=== PATIENT | female | born 1975 | race American Indian/Alaskan Native ===

== ENCOUNTER 2017-01-09 01:48 | Inpatient (IN) | payer OTHER ==
[2017-01-09] MEDS ORDERED: DUONEB *Not for PRN Use IH ONE ×2 (02:05→07:57)
[2017-01-09] MEDS ORDERED: MAGNESIUM SULFATE 2GM/50ML 2 GM/50 ML BAG IV ONE (02:57)
[2017-01-09 03:15] LABS: Basophils % (Auto) 0.6 % (0.0-1.8); Hemoglobin 12.6 gm/dl (10.1-14.3); Mean Corpuscular HGB Conc 32 % (30-34); Mean Corpuscular Volume 80 fl (79-97); Platelet Count 283 K/mm3 (140-440); Red Blood Count 5.04 M/mm3 (3.65-5.03); Red Cell Distribution Width 16.4 % (13.2-15.2); White Blood Count 13.1 K/mm3 (4.5-11.0)
[2017-01-09 03:28] LABS: Anion Gap 14 mmol/L; BUN/Creatinine Ratio 18.57; Blood Urea Nitrogen 13 mg/dL (7-17); Calcium 9.2 mg/dL (8.4-10.2); Carbon Dioxide 31 mmol/L (22-30); Chloride 97.6 mmol/L (98-107); Glucose 131 mg/dL (65-100); Potassium 3.7 mmol/L (3.6-5.0); Sodium 139 mmol/L (137-145)
[2017-01-09] MEDS ORDERED: ATROVENT IH ONE (03:35)
[2017-01-09] MEDS ORDERED: PROVENTIL IH ONE (03:35)
[2017-01-09] MEDS ORDERED: ZITHROMAX 500 MG in NACL 0.9% 250ML 250 ML IV ONE (03:36)
--- NOTE | 2017-01-09 03:48 | Emergency Department Report ---
ED Shortness of Breath HPI - General Chief Complaint: Dyspnea/Respdistress Stated Complaint: DIFFICULTY IN BREATHING Time Seen by Provider: 01/09/17 03:26 Source: EMS Mode of arrival: Stretcher Limitations: No Limitations - History of Present Illness Initial Comments: 41-year-old female with a past medical history of asthma, cardiomyopathy, htn, and sleep apnea presents to the hospital with complaints of wheezing shortness of breath today. Symptoms initially started 5 days ago with a sore throat described as burning and that she felt like she had a sinus congestion. Last night at 11 PM she began having worsening shortness of breath with wheezing. Patient uses albuterol nebulizer treatments as well as inhaler repeatedly without improvement. Occasional cough that is productive of sputum reported. Patient complaining of moderate chest pain is worse with coughing. - Related Data Home Medications Medication Instructions Recorded Confirmed Last Taken Metformin HCl [Glucophage] 1,000 mg PO BID 11/21/13 06/09/15 11/20/13 Previous Rx's Medication Instructions Recorded Last Taken Type Albuterol Sulfate [Proventil HFA] 1 - 2 puff IH Q4H PRN #1 hfa.aer.ad 09/24/14 Unknown Rx Amoxicillin [Trimox CAP] 500 mg PO BID #14 capsule 06/09/15 Unknown Rx HYDROcodone/APAP 5-325 [[place] 1 - 2 each PO Q6HR PRN #14 tablet 06/09/15 Unknown Rx 5/325] Phenylephrine/Dm/Acetaminop/GG 20 ml PO Q4HR #180 liquid 10/09/15 Unknown Rx [Mucinex Typt-Bxs-Tlctplwyzd Lq] Chlorthalidone [Thalitone] 25 mg PO QDAY #90 tablet 03/20/16 Unknown Rx Naproxen [Naprosyn TAB] 500 mg PO BID #20 tablet 03/20/16 Unknown Rx Prednisone [predniSONE 10 mg 10 mg PO .TAPER #1 tab.ds.pk 03/20/16 Unknown Rx (6-Day Pack, 21 Tabs)] amLODIPine [Norvasc] 5 mg PO DAILY #90 tab 03/20/16 Unknown Rx ALBUTEROL Inhaler [ProAir HFA 2 puff IH QID PRN #1 inhalation 05/20/16 Unknown Rx Inhaler] predniSONE [Deltasone] 20 mg PO QDAY #5 tab 05/20/16 Unknown Rx Allergies Allergy/AdvReac Type Severity Reaction Status Date / Time iodine Allergy Rash Verified 06/09/15 01:19 shellfish derived Allergy Rash Verified 06/09/15 01:19 ED Review of Systems ROS: Stated complaint: DIFFICULTY IN BREATHING Other details as noted in HPI Comment: All other systems reviewed and negative Other: Constitutional: No fevers chills Eyes: No eye pain visual changes ENT: No ear pain or throat pain Neck: Denies pain Respiratory: As per HPI Cardiovascular: Denies palpitations, syncope GI: Denies abdominal pain, nausea, vomiting, diarrhea : Denies dysuria Musculoskeletal: Denies back pain Skin: Denies rash, lesions, erythema Neurologic: Denies headache, numbness, weakness Psychiatric: Denies suicidal ideation, hallucinations ED Past Medical Hx - Past Medical History Hx Hypertension: Yes Hx Congestive Heart Failure: Yes ( cardiomyopathy) Hx Diabetes: No Hx Arthritis: Yes Hx Asthma: Yes Hx COPD: Yes Additional medical history: sleep apnea - Surgical History Additional Surgical History: x 3, orthopedic (arch replacement) - Social History Smoking Status: Current Some Day Smoker Substance Use Type: Alcohol - Medications Home Medications: Home Medications Medication Instructions Recorded Confirmed Last Taken Type Metformin HCl [Glucophage] 1,000 mg PO BID 11/21/13 06/09/15 11/20/13 History Albuterol Sulfate [Proventil HFA] 1 - 2 puff IH Q4H PRN #1 hfa.aer.ad 09/24/14 06/09/15 Unknown Rx Amoxicillin [Trimox CAP] 500 mg PO BID #14 capsule 06/09/15 Unknown Rx HYDROcodone/APAP 5-325 [[place] 1 - 2 each PO Q6HR PRN #14 tablet 06/09/15 Unknown Rx 5/325] Phenylephrine/Dm/Acetaminop/GG 20 ml PO Q4HR #180 liquid 10/09/15 Unknown Rx [Mucinex Cwwj-Bqk-Gyxaaxzwef Lq] Chlorthalidone [Thalitone] 25 mg PO QDAY #90 tablet 03/20/16 Unknown Rx Naproxen [Naprosyn TAB] 500 mg PO BID #20 tablet 03/20/16 Unknown Rx Prednisone [predniSONE 10 mg 10 mg PO .TAPER #1 tab.ds.pk 03/20/16 Unknown Rx (6-Day Pack, 21 Tabs)] amLODIPine [Norvasc] 5 mg PO DAILY #90 tab 03/20/16 Unknown Rx ALBUTEROL Inhaler [ProAir HFA 2 puff IH QID PRN #1 inhalation 05/20/16 Unknown Rx Inhaler] predniSONE [Deltasone] 20 mg PO QDAY #5 tab 05/20/16 Unknown Rx ED Physical Exam - General Limitations: No Limitations - Other Other exam information: General: No limitations, patient is alert in no acute distress Head exam: Atraumatic, normocephalic Eyes exam: Normal appearance ENT: Moist mucous membrane, normal oropharynx Neck exam: Normal inspection, full range of motion, no meningismus nontender Respiratory exam: Bilateral expiratory wheezing, mild tachypnea, no accessory muscle use Cardiovascular: mild tach, regular rhythm Abdomen: Soft, nondistended, and nontender, with normal bowel sounds, no rebound, or guarding Extremity: Full range of motion normal inspection no deformity, no calf tenderness or edema Back: Normal Inspection, full range of motion, no tenderness Neurologic: Alert, oriented x3, cranial nerves intact, no motor or sensory deficit Psychiatric: normal affect, normal mood Skin: Warm, dry, intact ED Course Vital Signs 01/09/17 01/09/17 01/09/17 02:01 02:23 02:30 Temperature 98.4 F Pulse Rate 115 H Pulse Rate [ 116 H 83 Throughout] Respiratory 30 H Rate Respiratory 20 20 Rate [ Throughout] Blood Pressure 142/89 [Left] O2 Sat by Pulse 99 Oximetry ED Medical Decision Making - Lab Data Result diagrams: 01/09/17 Unknown 01/09/17 02:55 Lab Results 01/09/17 01/09/17 Range/Units 02:55 Unknown WBC 13.1 H (4.5-11.0) K/mm3 RBC 5.04 H (3.65-5.03) M/mm3 Hgb 12.6 (10.1-14.3) gm/dl Hct 40.0 (30.3-42.9) % MCV 80 (79-97) fl MCH 25 L (28-32) pg MCHC 32 (30-34) % RDW 16.4 H (13.2-15.2) % Plt Count 283 (140-440) K/mm3 Lymph % (Auto) 29.2 (13.4-35.0) % [place] % (Auto) 5.2 (0.0-7.3) % Eos % (Auto) 4.0 (0.0-4.3) % Baso % (Auto) 0.6 (0.0-1.8) % Lymph # 3.8 (1.2-5.4) K/mm3 [place] # 0.7 (0.0-0.8) K/mm3 Eos # 0.5 H (0.0-0.4) K/mm3 Baso # 0.1 (0.0-0.1) K/mm3 Seg Neutrophils % 61.0 (40.0-70.0) % Seg Neutrophils # 8.0 H (1.8-7.7) K/mm3 Sodium 139 (137-145) mmol/L Potassium 3.7 (3.6-5.0) mmol/L Chloride 97.6 L (98-107) mmol/L Carbon Dioxide 31 H (22-30) mmol/L Anion Gap 14 mmol/L BUN 13 (7-17) mg/dL Creatinine 0.7 (0.7-1.2) mg/dL Estimated GFR > 60 ml/min BUN/Creatinine Ratio 18.57 % Glucose 131 H (65-100) mg/dL Calcium 9.2 (8.4-10.2) mg/dL Critical Care Time: No Critical care attestation.: If time is entered above; I have spent that time in minutes in the direct care of this critically ill patient, excluding procedure time. ED Disposition Clinical Impression: Sleep apnea, Morbid obesity, Acute asthmatic bronchitis Disposition: OP ADMIT IP TO THIS HOSP Is pt being admited?: Yes Condition: Stable Time of Disposition: 03:48 (Dr Davenport/hosp)
[2017-01-09 03:52] LABS: Mean Corpuscular Hemoglobin 25 pg (28-32)
[2017-01-09] MEDS ORDERED: TESSALON PERLES PO ONE (04:20)
[2017-01-09 04:55] LABS: ISTAT Base Excess 2; ISTAT DEVICE 0; ISTAT HCO3 25.7; ISTAT PCO2 35.1 (35-45); ISTAT PH 7.474 (7.35-7.45); ISTAT PO2 66 (80-105); ISTAT SO2 94; ISTAT TCO2 27
[2017-01-09] MEDS ORDERED: ZOFRAN IV PRN (05:57)
[2017-01-09] MEDS ORDERED: DULCOLAX PR PRN (05:57)
[2017-01-09] MEDS ORDERED: MILK OF MAGNESIA PO PRN (05:57)
--- NOTE | 2017-01-09 06:35 | History and Physical Report ---
History of Present Illness Date of examination: 01/09/17 History of present illness: 5-year-old woman with a history of hypertension,CHF comes emergency room with complaints of shortness of breath at started this morning, wheezing and cough that is non- productive. Patient had a sinus infection, was given antibiotic but was unable to get the prescription filled Patient denies chest pain, palpitation, s abdominal pain, hematochezia, dysuria , frequency, focal weakness, dysarthria, fever chills, polydipsia polyuria, hot or cold intolerance, easy bruisability, or rash or bleeding from mucosal membrane, rhinorrhea, epistaxis, earache, tinnitus, blurry vision, eye discharge , anxiety, depression. Other review of systems negative PAST SURGICAL HISTORY: 3, foot SOCIAL HISTORY: Smoke Cigarettes, no alcohol or drugs FAMILY HISTORY: Hypertension Medications and Allergies Allergies Allergy/AdvReac Type Severity Reaction Status Date / Time iodine Allergy Rash Verified 06/09/15 01:19 shellfish derived Allergy Rash Verified 06/09/15 01:19 Home Medications Medication Instructions Recorded Confirmed Last Taken Type Albuterol Sulfate [Proventil HFA] 1 - 2 puff IH Q4H PRN #1 hfa.aer.ad 09/24/14 01/09/17 01/08/17 Rx Naproxen [Naprosyn TAB] 500 mg PO BID #20 tablet 03/20/16 01/09/17 Unknown Rx amLODIPine [Norvasc] 5 mg PO DAILY #90 tab 03/20/16 01/09/17 Unknown Rx ALBUTEROL Inhaler [ProAir HFA 2 puff IH QID PRN #1 inhalation 05/20/16 01/09/17 01/08/17 Rx Inhaler] Cetirizine HCl [ZyrTEC] 10 mg PO PRN 01/09/17 01/09/17 Unknown History Furosemide [Lasix] 20 mg PO QDAY 01/09/17 01/09/17 Unknown History Active Meds: Active Medications Acetaminophen (Tylenol) 650 mg PO Q4H PRN PRN Reason: Pain MILD(1-3)/Fever >100.5/CESAR Albuterol/Ipratropium (Duoneb 0.5 Mg-3 Mg/3 Ml Soln) 1 ampul IH Q6HRT [facility] Bisacodyl (Dulcolax) 10 mg [place] QDAY PRN PRN Reason: Constipation unrelieved by MOM Enoxaparin Sodium (Lovenox) 40 mg SUB-Q QDAY [facility] Magnesium Hydroxide (Milk Of Magnesia) 30 ml PO Q4H PRN PRN Reason: Constipation Methylprednisolone Sodium Succinate (Solu-Medrol) 125 mg IV Q6H [facility] Ondansetron HCl (Zofran) 4 mg IV Q8H PRN PRN Reason: N/V unrelieved by Reglan Exam - Physical Exam Narrative exam: Gen. appearance: Patient lying in bed, no apparent distress. not able to speak in complete sentence HEENT: Normocephalic, atraumatic, pupils equally round and reactive to light, extraocular movement intact, and no sclericterus,. No JVD or thyromegaly or nodule,neck supple, no carotid bruit ,mucous membranes moist, no exudate or erythema Heart: S1, S2, regular rate and rhythm Lungs: Wheezing, decreased air entry bilaterally, breathing comfortable Abdomen: Positive bowel sounds, nontender, nondistended, no organomegaly Extremity: No edema, cyanosis, clubbing Skin: No rash, nodules, warm, dry Neuro: Oriented 3, cranial nerves II-12 intact, speech is fluent, motor and sensory intact - Constitutional Vitals: Temp Pulse Resp BP Pulse Ox 98.4 F 114 H 23 142/89 95 01/09/17 02:01 01/09/17 05:51 01/09/17 05:51 01/09/17 02:01 01/09/17 05:51 Results - Labs CBC & Chem 7: 01/09/17 Unknown 01/09/17 02:55 Labs: Abnormal lab results 01/09/17 01/09/17 01/09/17 Range/Units 02:55 04:48 Unknown WBC 13.1 H (4.5-11.0) K/mm3 RBC 5.04 H (3.65-5.03) M/mm3 MCH 25 L (28-32) pg RDW 16.4 H (13.2-15.2) % Eos # 0.5 H (0.0-0.4) K/mm3 Seg Neutrophils # 8.0 H (1.8-7.7) K/mm3 POC ABG pH 7.474 H (7.35-7.45) POC ABG pO2 66 L (80-105) Chloride 97.6 L (98-107) mmol/L Carbon Dioxide 31 H (22-30) mmol/L Glucose 131 H (65-100) mg/dL - Imaging and Cardiology Chest x-ray: image reviewed Assessment and Plan Acute respiratory failure Asthma exacerbation Hypertension CHF, stable Obstructive sleep apnea. Admit to medicine Start high-dose steroids, nebulizer treatments, etc. mycin Obtain ABG and start BiPAP Continue appropiate Outpatient medications, start dvt prophylaxis
[2017-01-09] MEDS ORDERED: DUONEB *Not for PRN Use IH SCH (08:00)
[2017-01-09] MEDS: DUONEB *Not for PRN Use IH SCH ×4 (08:05→21:59)
--- NOTE | 2017-01-09 10:48 | Progress Note ---
Assessment and Plan Assessment and plan: Admitted today by Dr. Liyah Davenport, this is a reevaluation Patient is a 41-year-old morbid obese woman BMI 51.7 with a history of asthma, cardiomyopathy, obstructive sleep apnea, arthritis and tobacco dependency who presents to emergency department at [facility] with shortness of breath and wheezing after failing outpatient therapy. Chest x -rays pending. Patient primary care provider Dr. Florentino Crump and her podiatric foot and ankle specialist Dr. Arreola. She is currently on BiPAP 12/6 40%. -Acute hypoxic respiratory failure: Treatment oxygen -Acute exacerbation asthma versus COPD exacerbation: Consulted her podiatric foot and ankle specialist , treat with IV steroids, antibiotics, nebulizer treatment, antitussive -Sepsis bronchitis, present on admission as evident by white blood cell count 13.1 with heart rate 100: Blood cultures and treat with antibiotics -Morbid obesity BMI 51.7: Lifestyle modifications -Tobacco dependency, counseled to stop, she says she hasn't smoked in 3 days, encouragement given History Interval history: Patient seen and examined. Follow up on shortness breath and nonproductive cough which still present causing chest discomfort. No severe headaches. Imaging, old records, testing, labs, nursing notes reviewed. Hospitalist Physical - Physical exam Narrative exam: GEN: Morbidly obese BMI 51.7 ill-appearing AWAKE, ALERT, ORIENTATED x 3 HEENT: NCAT, PERRL, EOMI, OP CLEAR NECK: SUPPLE, NO THYROMEGALY, NO JVD, NO LAD CVS: RRR, NORMAL S1S2 LUNGS/CHEST: Bilateral expiratory wheezing NORMAL CHEST EXPANSION B, diminished AIR ENTRY B ABD: SOFT, NTND, GBS, NO REBOUND OR GUARDING EXT/SKIN: NO SIGNIFICANT EDEMA OR RASH MSK: FROM X 4 EXTREMITIES NEURO: CN 2-12 GROSSLY INTACT, NO FOCAL DEFICITS PSY: CALM - Constitutional Vitals: Temp Pulse Resp BP Pulse Ox 98.5 F 119 H 22 138/76 100 01/09/17 07:20 01/09/17 08:23 01/09/17 08:23 01/09/17 07:45 01/09/17 07:45 Results - Labs CBC & Chem 7: 01/09/17 Unknown 01/09/17 02:55 Labs: Laboratory Last Values WBC 13.1 K/mm3 (4.5-11.0) H 01/09/17 Unknown RBC 5.04 M/mm3 (3.65-5.03) H 01/09/17 Unknown Hgb 12.6 gm/dl (10.1-14.3) 01/09/17 Unknown Hct 40.0 % (30.3-42.9) 01/09/17 Unknown MCV 80 fl (79-97) 01/09/17 Unknown MCH 25 pg (28-32) L 01/09/17 Unknown MCHC 32 % (30-34) 01/09/17 Unknown RDW 16.4 % (13.2-15.2) H 01/09/17 Unknown Plt Count 283 K/mm3 (140-440) 01/09/17 Unknown Lymph % (Auto) 29.2 % (13.4-35.0) 01/09/17 Unknown [place] % (Auto) 5.2 % (0.0-7.3) 01/09/17 Unknown Eos % (Auto) 4.0 % (0.0-4.3) 01/09/17 Unknown Baso % (Auto) 0.6 % (0.0-1.8) 01/09/17 Unknown Lymph # 3.8 K/mm3 (1.2-5.4) 01/09/17 Unknown [place] # 0.7 K/mm3 (0.0-0.8) 01/09/17 Unknown Eos # 0.5 K/mm3 (0.0-0.4) H 01/09/17 Unknown Baso # 0.1 K/mm3 (0.0-0.1) 01/09/17 Unknown Seg Neutrophils % 61.0 % (40.0-70.0) 01/09/17 Unknown Seg Neutrophils # 8.0 K/mm3 (1.8-7.7) H 01/09/17 Unknown POC ABG pH 7.474 (7.35-7.45) H 01/09/17 04:48 POC ABG pCO2 35.1 (35-45) 01/09/17 04:48 POC ABG pO2 66 (80-105) L 01/09/17 04:48 POC ABG HCO3 25.7 01/09/17 04:48 POC ABG Total CO2 27 01/09/17 04:48 POC ABG O2 Sat 94 01/09/17 04:48 POC ABG Base Excess 2 01/09/17 04:48 FiO2 21 % 01/09/17 04:48 Sodium 139 mmol/L (137-145) 01/09/17 02:55 Potassium 3.7 mmol/L (3.6-5.0) 01/09/17 02:55 Chloride 97.6 mmol/L (98-107) L 01/09/17 02:55 Carbon Dioxide 31 mmol/L (22-30) H 01/09/17 02:55 Anion Gap 14 mmol/L 01/09/17 02:55 BUN 13 mg/dL (7-17) 01/09/17 02:55 Creatinine 0.7 mg/dL (0.7-1.2) 01/09/17 02:55 Estimated GFR > 60 ml/min 01/09/17 02:55 BUN/Creatinine Ratio 18.57 % 01/09/17 02:55 Glucose 131 mg/dL (65-100) H 01/09/17 02:55 Calcium 9.2 mg/dL (8.4-10.2) 01/09/17 02:55
--- NOTE | 2017-01-09 11:22 | XRay Report ---
AP CHEST :01/09/17 01:48:00 CLINICAL: Difficulty breathing. COMPARISON:05/20/16 FINDINGS: Normal heart and pulmonary vasculature. The lungs are normally expanded and clear. The bones and soft tissues are normal. IMPRESSION: Normal chest.
[2017-01-09] MEDS: ROBITUSSIN AC PO PRN ×2 (11:31→21:20)
[2017-01-09] MEDS: ROCEPHIN/NS 1 GM/50 ML 1 GM/50 ML BAG IV SCH (11:31)
[2017-01-09] MEDS: LOVENOX SUB-Q SCH (11:32)
[2017-01-09] MEDS: MUCINEX ER PO SCH ×2 (12:18→21:53)
[2017-01-09] MEDS: TYLENOL PO PRN ×2 (12:23→21:23)
[2017-01-09] MEDS ORDERED: TESSALON PERLES PO SCH (14:00)
--- NOTE | 2017-01-09 16:51 | Consultation ---
History of Present Illness Consult date: 01/09/17 Reason for consult: cough, asthma, obstructive sleep apnea History of present illness: This is 41 year old female morbidly obese has history of asthma , Sleep apnea,hypertension,CHF came to the emergency room with shortness of breath,chest tightness. Patient also complaining nasal congestion and sore throat. Denies fever.Patient smokes 1 pack x 1 week for 20 years . Counselled to stop smoking. Denies alcohol or drug abuse. 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 Allergic to Iodine and Shell fish.Patients chest xray reported normal. Patients ABGs PH 7. 47 PCO2 35 PO2 66 HCO3 26 O2 saturation 94% on room air.Patient is not using her CPAP at home for more than year. p Past History Past Medical History: heart failure, hypertension, other (Asthma, Sleep apnea.) Social history: , smoking Medications and Allergies Allergies Allergy/AdvReac Type Severity Reaction Status Date / Time iodine Allergy Rash Verified 06/09/15 01:19 shellfish derived Allergy Rash Verified 06/09/15 01:19 Home Medications Medication Instructions Recorded Confirmed Last Taken Type Albuterol Sulfate [Proventil HFA] 1 - 2 puff IH Q4H PRN #1 hfa.aer.ad 09/24/14 01/09/17 01/08/17 Rx Naproxen [Naprosyn TAB] 500 mg PO BID #20 tablet 03/20/16 01/09/17 Unknown Rx amLODIPine [Norvasc] 5 mg PO DAILY #90 tab 03/20/16 01/09/17 Unknown Rx ALBUTEROL Inhaler [ProAir HFA 2 puff IH QID PRN #1 inhalation 05/20/16 01/09/17 01/08/17 Rx Inhaler] Cetirizine HCl [ZyrTEC] 10 mg PO PRN 01/09/17 01/09/17 Unknown History Furosemide [Lasix] 20 mg PO QDAY 01/09/17 01/09/17 Unknown History Active Meds: Active Medications Acetaminophen (Tylenol) 650 mg PO Q4H PRN PRN Reason: Pain MILD(1-3)/Fever >100.5/CESAR Last Admin: 01/09/17 12:23 Dose: 650 mg Albuterol/Ipratropium (Duoneb 0.5 Mg-3 Mg/3 Ml Soln) 1 ampul IH Q6HRT [facility] Last Admin: 01/09/17 12:40 Dose: 1 ampul Bisacodyl (Dulcolax) 10 mg [place] QDAY PRN PRN Reason: Constipation unrelieved by MOM Enoxaparin Sodium (Lovenox) 40 mg SUB-Q QDAY [facility] Last Admin: 01/09/17 11:32 Dose: 40 mg Guaifenesin (Mucinex Er) 600 mg PO BID [facility] Last Admin: 01/09/17 12:18 Dose: Not Given Azithromycin 500 mg/ Sodium (Chloride) 250 mls @ 250 mls/hr IV Q24HR [facility] PRN Reason: Protocol Ceftriaxone Sodium (Rocephin/Ns 1 Gm/50 Ml) 1 gm in 50 mls @ 100 mls/hr IV Q24HR [facility] PRN Reason: Protocol Last Admin: 01/09/17 11:31 Dose: 100 mls/hr Magnesium Hydroxide (Milk Of Magnesia) 30 ml PO Q4H PRN PRN Reason: Constipation Methylprednisolone Sodium Succinate (Solu-Medrol) 125 mg IV Q6H [facility] Pseudoephedrine/Acetam/Chlorphenir (Robitussin Ac) 10 ml PO Q4H PRN PRN Reason: Cough Last Admin: 01/09/17 11:31 Dose: 10 ml Review of Systems All systems: negative Constitutional: fatigue, chronic headaches, daytime sleepiness Ears, nose, mouth and throat: nasal congestion, headache Cardiovascular: shortness of breath Respiratory: cough, shortness of breath, wheezing, sleep apnea Physical Examination Vital signs: Vital Signs Resp Pulse Ox 19 98 01/09/17 01:48 01/09/17 01:48 General appearance: no acute distress, alert, appears uncomfortable Eyes: non-icteric ENT: oropharynx moist Neck: no JVD, JVD Ascultation: Bilateral: diminished breath sounds, rhonchi Cardiovascular: regular rate and rhythm Gastrointestinal: normoactive bowel sounds, soft, non-tender Integumentary: normal Extremities: no cyanosis, no edema, pink and warm Musculoskeletal: no deformities Gait: poor gait normal mental status, non-focal exam, pupils equal and round, CN II-XII normal anxious Results - Laboratory Findings CBC and BMP: 01/09/17 Unknown 01/09/17 02:55 ABG POC ABG pH 7.474 (7.35-7.45) H 01/09/17 04:48 POC ABG pCO2 35.1 (35-45) 01/09/17 04:48 POC ABG pO2 66 (80-105) L 01/09/17 04:48 POC ABG HCO3 25.7 01/09/17 04:48 POC ABG Total CO2 27 01/09/17 04:48 POC ABG O2 Sat 94 01/09/17 04:48 Abnormal lab findings: Abnormal Labs 01/09/17 Unknown WBC 13.1 H RBC 5.04 H MCH 25 L RDW 16.4 H Eos # 0.5 H Seg Neutrophils # 8.0 H - Diagnostic Findings Chest x-ray: report reviewed (Normal chest.), image reviewed Assessment and Plan This is 41 year old female morbidly obese has history of asthma , Sleep apnea,hypertension,CHF came to the emergency room with shortness of breath,chest tightness. Patient also complaining nasal congestion and sore throat. Denies fever.Patient smokes 1 pack x 1 week for 20 years . Counselled to stop smoking. Denies alcohol or drug abuse. 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 Allergic to Iodine and Shell fish.Patients chest xray reported normal. Patients ABGs PH 7. 47 PCO2 35 PO2 66 HCO3 26 O2 saturation 94% on room air.Patient is not using her CPAP at home for more than year. - Patient Problems (1) Acute bronchitis Current Visit: Yes Status: Acute Qualifiers: Bronchitis organism: B Plan to address problem: Patient is on Zithromax and ceftrioxone. (2) Asthma exacerbation Current Visit: Yes Status: Acute Qualifiers: Asthma severity: A Plan to address problem: .O2 2 litres via nasal canula. BIPAP 16/6, rate 20, FiO2 28%. Albuterol/atrovent aerosol treatments q 6 hours. Continu Continue ceftrioxone and Zithramax. Continue S/C Lovenox. Recommend protonix. (3) Morbid obesity Current Visit: Yes Status: Chronic Qualifiers: Obesity type: O Plan to address problem: Nutritional consultation for weight reduction diet. Recommend to loose weight, (4) Sleep apnea Current Visit: Yes Status: Chronic Qualifiers: Sleep apnea type: S Plan to address problem: Patient is on BIPAP 16/, rate 20, FIO2 28%.
[2017-01-10] MEDS: DUONEB *Not for PRN Use IH SCH ×4 (02:33→20:45)
[2017-01-10 08:33] LABS: Hematocrit 37.6 % (30.3-42.9); Hemoglobin 11.7 gm/dl (10.1-14.3); Mean Corpuscular HGB Conc 31 % (30-34); Mean Corpuscular Volume 81 fl (79-97); Platelet Count 300 K/mm3 (140-440); Red Blood Count 4.65 M/mm3 (3.65-5.03); Red Cell Distribution Width 17.2 % (13.2-15.2)
[2017-01-10 08:36] LABS: BUN/Creatinine Ratio 16.66; Blood Urea Nitrogen 10 mg/dL (7-17); Calcium 9.3 mg/dL (8.4-10.2); Carbon Dioxide 23 mmol/L (22-30); Chloride 101.7 mmol/L (98-107); Glucose 225 mg/dL (65-100); Potassium 4.3 mmol/L (3.6-5.0); Sodium 139 mmol/L (137-145)
[2017-01-10 08:37] LABS: Anion Gap 19 mmol/L
[2017-01-10 08:51] LABS: Mean Corpuscular Hemoglobin 25 pg (28-32); White Blood Count 22.3 K/mm3 (4.5-11.0)
[2017-01-10] MEDS: ROCEPHIN/NS 1 GM/50 ML 1 GM/50 ML BAG IV SCH (09:48)
[2017-01-10] MEDS: LOVENOX SUB-Q SCH (09:49)
[2017-01-10] MEDS: MUCINEX ER PO SCH ×2 (09:50→22:50)
[2017-01-10] MEDS: ZITHROMAX 500 MG in NACL 0.9% 250ML 250 ML IV SCH (09:51)
[2017-01-10 10:24] LABS: Blastocytes % (Manual) 0 %; Eosinophils % (Manual) 0 % (0.0-4.3); Total Cells Counted Percent 0
[2017-01-10 10:25] LABS: Anisocytosis 1+; Diff Status Complete; Hypochromasia 1+; Large Platelets Rare; Platelet Estimate Cons
[2017-01-10] MEDS: ROBITUSSIN AC PO PRN (11:44)
[2017-01-10] MEDS ORDERED: DULCOLAX PO PRN (11:56)
[2017-01-10] MEDS: NORCO 5/325 PO PRN ×3 (12:14→23:33)
--- NOTE | 2017-01-10 12:41 | Progress Note ---
Assessment and Plan Assessment and plan: Patient is a 41-year-old morbid obese woman BMI 51.7 with a history of asthma, cardiomyopathy, obstructive sleep apnea, arthritis and tobacco dependency [facility] and wheezing after failing outpatient therapy. Chest x -rays pending. Patient primary care provider Dr. Florentino Crump and her supervisor shaving and splitting Dr. Arreola. She was on BiPAP 06/09 40%. -Acute hypoxic respiratory failure: Treat w/ oxygen -Acute exacerbation asthma versus COPD exacerbation: Consulted her supervisor shaving and splitting , treat with IV steroids, antibiotics, nebulizer treatment, antitussive adjusted because Tessalon works better per pt -Sepsis bronchitis, present on admission as evident by white blood cell count 13.1 with heart rate 100: Blood cultures and treat with antibiotics -Morbid obesity BMI 51.7: Lifestyle modifications -Tobacco dependency, counseled to stop, she says she hasn't smoked in 3 days, encouragement given -Insomina: ambien prn -Constipation: dulcolax prn -Sore throat, no pus seen on exam: check rapid strep -Chronic pain syndrome: norco History Interval history: Patient seen and examined. Follow up on shortness breath and nonproductive cough which still present causing chest discomfort. No severe headaches. Imaging, old records, testing, labs, nursing notes reviewed. She c/o sore throat , constipation, chronic arthritic pains in back and insomnia. Bipap still on when I entered the room with respiratory therapy, d/c bipap and will monitor Hospitalist Physical - Physical exam Narrative exam: GEN: Morbidly obese BMI 51.7 ill-appearing AWAKE, ALERT, ORIENTATED x 3 HEENT: NCAT, PERRL, EOMI, OP CLEAR NECK: SUPPLE, NO THYROMEGALY, NO JVD, NO LAD CVS: Reg tachy NORMAL S1S2 LUNGS/CHEST: Bilateral expiratory wheezing NORMAL CHEST EXPANSION B, diminished AIR ENTRY B ABD: SOFT, NTND, GBS, NO REBOUND OR GUARDING EXT/SKIN: NO SIGNIFICANT EDEMA OR RASH MSK: FROM X 4 EXTREMITIES NEURO: CN 2-12 GROSSLY INTACT, NO FOCAL DEFICITS PSY: CALM - Constitutional Vitals: Temp Pulse Resp BP Pulse Ox 97.4 F L 108 H 20 147/79 97 01/10/17 12:32 01/10/17 12:32 01/10/17 12:32 01/10/17 12:32 01/10/17 12:32 Results - Labs CBC & Chem 7: 01/10/17 07:56 01/10/17 07:56 Labs: Laboratory Last Values WBC 22.3 K/mm3 (4.5-11.0) H 01/10/17 07:56 RBC 4.65 M/mm3 (3.65-5.03) 01/10/17 07:56 Hgb 11.7 gm/dl (10.1-14.3) 01/10/17 07:56 Hct 37.6 % (30.3-42.9) 01/10/17 07:56 MCV 81 fl (79-97) 01/10/17 07:56 MCH 25 pg (28-32) L 01/10/17 07:56 MCHC 31 % (30-34) 01/10/17 07:56 RDW 17.2 % (13.2-15.2) H 01/10/17 07:56 Plt Count 300 K/mm3 (140-440) 01/10/17 07:56 Lymph % (Auto) 29.2 % (13.4-35.0) 01/09/17 Unknown [place] % (Auto) 5.2 % (0.0-7.3) 01/09/17 Unknown Eos % (Auto) 4.0 % (0.0-4.3) 01/09/17 Unknown Baso % (Auto) 0.6 % (0.0-1.8) 01/09/17 Unknown Lymph # 3.8 K/mm3 (1.2-5.4) 01/09/17 Unknown [place] # 0.7 K/mm3 (0.0-0.8) 01/09/17 Unknown Eos # 0.5 K/mm3 (0.0-0.4) H 01/09/17 Unknown Baso # 0.1 K/mm3 (0.0-0.1) 01/09/17 Unknown Add Manual Diff Complete 01/10/17 07:56 Total Counted 100 01/10/17 07:56 Seg Neutrophils % Veterinary Technician Assistant 01/10/17 07:56 Band Neutrophils % 0 % 01/10/17 07:56 Lymphocytes % (Manual) 8.0 % (13.4-35.0) L 01/10/17 07:56 Reactive Lymphs % (Man) 0 % 01/10/17 07:56 Monocytes % (Manual) 0 % (0.0-7.3) 01/10/17 07:56 Eosinophils % (Manual) 0 % (0.0-4.3) 01/10/17 07:56 Metamyelocytes % 0 % 01/10/17 07:56 Myelocytes % 0 % 01/10/17 07:56 Promyelocytes % 0 % 01/10/17 07:56 Blast Cells % 0 % 01/10/17 07:56 Nucleated RBC % Not Reportable 01/10/17 07:56 Seg Neutrophils # 8.0 K/mm3 (1.8-7.7) H 01/09/17 Unknown Seg Neutrophils # Man 20.5 K/mm3 (1.8-7.7) H 01/10/17 07:56 Band Neutrophils # 0.0 K/mm3 01/10/17 07:56 Lymphocytes # (Manual) 1.8 K/mm3 (1.2-5.4) 01/10/17 07:56 Abs React Lymphs (Man) 0.0 K/mm3 01/10/17 07:56 Monocytes # (Manual) 0.0 K/mm3 (0.0-0.8) 01/10/17 07:56 Eosinophils # (Manual) 0.0 K/mm3 (0.0-0.4) 01/10/17 07:56 Basophils # (Manual) 0.0 K/mm3 (0.0-0.1) 01/10/17 07:56 Metamyelocytes # 0.0 K/mm3 01/10/17 07:56 Myelocytes # 0.0 K/mm3 01/10/17 07:56 Promyelocytes # 0.0 K/mm3 01/10/17 07:56 Blast Cells # 0.0 K/mm3 01/10/17 07:56 WBC Morphology Not Reportable 01/10/17 07:56 Hypersegmented Neuts Not Reportable 01/10/17 07:56 Hyposegmented Neuts Not Reportable 01/10/17 07:56 Hypogranular Neuts Not Reportable 01/10/17 07:56 Smudge Cells Not Reportable 01/10/17 07:56 Toxic Granulation Not Reportable 01/10/17 07:56 Toxic Vacuolation Not Reportable 01/10/17 07:56 Dohle Bodies Not Reportable 01/10/17 07:56 Pelger-Huet Anomaly Not Reportable 01/10/17 07:56 Lili Rods Not Reportable 01/10/17 07:56 Platelet Estimate Cons 01/10/17 07:56 Clumped Platelets Not Reportable 01/10/17 07:56 Plt Clumps, EDTA Not Reportable 01/10/17 07:56 Large Platelets Rare 01/10/17 07:56 Giant Platelets Not Reportable 01/10/17 07:56 Platelet Satelliting Not Reportable 01/10/17 07:56 Plt Morphology Comment Not Reportable 01/10/17 07:56 RBC Morphology Not Reportable 01/10/17 07:56 Dimorphic RBCs Not Reportable 01/10/17 07:56 Polychromasia Not Reportable 01/10/17 07:56 Hypochromasia 1+ 01/10/17 07:56 Poikilocytosis Not Reportable 01/10/17 07:56 Anisocytosis 1+ 01/10/17 07:56 Microcytosis Not Reportable 01/10/17 07:56 Macrocytosis Not Reportable 01/10/17 07:56 Spherocytes Not Reportable 01/10/17 07:56 Pappenheimer Bodies Not Reportable 01/10/17 07:56 Sickle Cells Not Reportable 01/10/17 07:56 Target Cells Not Reportable 01/10/17 07:56 Tear Drop Cells Not Reportable 01/10/17 07:56 Ovalocytes Not Reportable 01/10/17 07:56 Helmet Cells Not Reportable 01/10/17 07:56 [place] Bodies Not Reportable 01/10/17 07:56 [place] Rings Not Reportable 01/10/17 07:56 Madie Cells Not Reportable 01/10/17 07:56 Bite Cells Not Reportable 01/10/17 07:56 Crenated Cell Not Reportable 01/10/17 07:56 Elliptocytes Not Reportable 01/10/17 07:56 Acanthocytes (Spur) Not Reportable 01/10/17 07:56 Rouleaux Not Reportable 01/10/17 07:56 Hemoglobin C Crystals Not Reportable 01/10/17 07:56 Schistocytes Not Reportable 01/10/17 07:56 Malaria parasites Not Reportable 01/10/17 07:56 Bruce Bodies Not Reportable 01/10/17 07:56 Hem Pathologist Commnt No 01/10/17 07:56 POC ABG pH 7.474 (7.35-7.45) H 01/09/17 04:48 POC ABG pCO2 35.1 (35-45) 01/09/17 04:48 POC ABG pO2 66 (80-105) L 01/09/17 04:48 POC ABG HCO3 25.7 01/09/17 04:48 POC ABG Total CO2 27 01/09/17 04:48 POC ABG O2 Sat 94 01/09/17 04:48 POC ABG Base Excess 2 01/09/17 04:48 FiO2 21 % 01/09/17 04:48 Sodium 139 mmol/L (137-145) 01/10/17 07:56 Potassium 4.3 mmol/L (3.6-5.0) 01/10/17 07:56 Chloride 101.7 mmol/L (98-107) 01/10/17 07:56 Carbon Dioxide 23 mmol/L (22-30) D 01/10/17 07:56 Anion Gap 19 mmol/L 01/10/17 07:56 BUN 10 mg/dL (7-17) 01/10/17 07:56 Creatinine 0.6 mg/dL (0.7-1.2) L 01/10/17 07:56 Estimated GFR > 60 ml/min 01/10/17 07:56 BUN/Creatinine Ratio 16.66 % 01/10/17 07:56 Glucose 225 mg/dL (65-100) H 01/10/17 07:56 Calcium 9.3 mg/dL (8.4-10.2) 01/10/17 07:56
[2017-01-10] MEDS: TESSALON PERLES PO SCH ×2 (14:13→22:00)
--- NOTE | 2017-01-10 16:11 | Progress Note ---
Assessment and Plan This is 41 year old female morbidly obese has history of asthma , Sleep apnea,hypertension,CHF came to the emergency room with shortness of breath,chest tightness. Patient also complaining nasal congestion and sore throat. Denies fever.Patient smokes 1 pack x 1 week for 20 years . Counselled to stop smoking. Denies alcohol or drug abuse. 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 Allergic to Iodine and Shell fish.Patients chest xray reported normal. Patients ABGs PH 7. 47 PCO2 35 PO2 66 HCO3 26 O2 saturation 94% on room air.Patient is not using her CPAP at home for more than year. 01/10/17 Patient alert, awake.Still complaining some shortness of breath. O2 saturation 97% on 2 litres O2. - Patient Problems (1) Acute bronchitis Current Visit: Yes Status: Acute Qualifiers: Bronchitis organism: B Plan to address problem: Patient is on Zithromax and ceftrioxone. (2) Asthma exacerbation Current Visit: Yes Status: Acute Qualifiers: Asthma severity: A Plan to address problem: .O2 2 litres via nasal canula. BIPAP 16/6, rate 20, FiO2 28%. Albuterol/atrovent aerosol treatments q 6 hours. Continue I/V solumedral. Continue ceftrioxone and Zithramax. Continue S/C Lovenox. Recommend protonix. (3) Morbid obesity Current Visit: Yes Status: Chronic Qualifiers: Obesity type: O Plan to address problem: Nutritional consultation for weight reduction diet. Recommend to loose weight, (4) Sleep apnea Current Visit: Yes Status: Chronic Qualifiers: Sleep apnea type: S Plan to address problem: Patient is on BIPAP 16/6, rate 20, FIO2 28%. Subjective Date of service: 01/10/17 Interval history: Patient alert, awake.Still complaining some shortness of breath. O2 saturation 97% on 2 litres O2. Objective Vital Signs - 12hr 01/10/17 01/10/17 01/10/17 05:04 08:00 09:00 Temperature 98.4 F 97.8 F Pulse Rate Pulse Rate [ Anterior Bilateral Throughout] Pulse Rate [ 101 H Posterior Bilateral Throughout] Pulse Rate [ 111 H 105 H Right Radial] Pulse Rate [ 101 H Throughout] Respiratory 20 20 Rate Respiratory Rate [Anterior Bilateral Throughout] Respiratory 20 Rate [Posterior Bilateral Throughout] Respiratory 20 Rate [ Throughout] Blood Pressure 135/65 146/89 [Right Radial Artery] O2 Sat by Pulse 96 99 Oximetry 01/10/17 01/10/17 01/10/17 10:00 12:14 Temperature Pulse Rate 103 H Pulse Rate [ Anterior Bilateral Throughout] Pulse Rate [ 103 H Posterior Bilateral Throughout] Pulse Rate [ 103 H Right Radial] Pulse Rate [ Throughout] Respiratory 20 20 Rate Respiratory Rate [Anterior Bilateral Throughout] Respiratory 20 Rate [Posterior Bilateral Throughout] Respiratory Rate [ Throughout] Blood Pressure [Right Radial Artery] O2 Sat by Pulse 98 Oximetry 01/10/17 01/10/17 01/10/17 12:32 14:57 15:11 Temperature 97.4 F L Pulse Rate Pulse Rate [ 101 H 107 H Anterior Bilateral Throughout] Pulse Rate [ 101 H 107 H Posterior Bilateral Throughout] Pulse Rate [ 108 H Right Radial] Pulse Rate [ Throughout] Respiratory 20 Rate Respiratory 20 20 Rate [Anterior Bilateral Throughout] Respiratory 18 20 Rate [Posterior Bilateral Throughout] Respiratory Rate [ Throughout] Blood Pressure 147/79 [Right Radial Artery] O2 Sat by Pulse 97 Oximetry Constitutional: no acute distress, alert, appears uncomfortable Eyes: non-icteric ENT: oropharynx moist Neck: no JVD, JVD Ascultation: Bilateral: diminished breath sounds, rhonchi Cardiovascular: regular rate and rhythm Gastrointestinal: normoactive bowel sounds, soft, non-tender Integumentary: normal Extremities: no cyanosis, no edema, pink and warm Neurologic: normal mental status, non-focal exam, pupils equal and round, CN II- XII normal Psychiatric: anxious CBC and BMP: 01/10/17 07:56 01/10/17 07:56 ABG, PT/INR, D-dimer: ABG POC ABG pH 7.474 (7.35-7.45) H 01/09/17 04:48 POC ABG pCO2 35.1 (35-45) 01/09/17 04:48 POC ABG pO2 66 (80-105) L 01/09/17 04:48 POC ABG HCO3 25.7 01/09/17 04:48 POC ABG Total CO2 27 01/09/17 04:48 POC ABG O2 Sat 94 01/09/17 04:48 Abnormal lab findings: Abnormal Labs 01/09/17 01/10/17 01/10/17 Unknown 07:56 07:56 WBC 13.1 H 22.3 H RBC 5.04 H MCH 25 L 25 L RDW 16.4 H 17.2 H Eos # 0.5 H Lymphocytes % (Manual) 8.0 L Seg Neutrophils # 8.0 H Seg Neutrophils # Man 20.5 H Creatinine 0.6 L Glucose 225 H
[2017-01-10] MEDS: AMBIEN PO PRN (23:35)
[2017-01-11] MEDS: DUONEB *Not for PRN Use IH SCH ×4 (02:24→20:09)
[2017-01-11] MEDS: TESSALON PERLES PO SCH ×3 (06:21→21:48)
[2017-01-11] MEDS: NORCO 5/325 PO PRN ×4 (07:20→21:48)
[2017-01-11] MEDS: ROCEPHIN/NS 1 GM/50 ML 1 GM/50 ML BAG IV SCH (10:37)
[2017-01-11] MEDS: MUCINEX ER PO SCH ×2 (10:38→21:48)
[2017-01-11] MEDS: LOVENOX SUB-Q SCH (10:38)
[2017-01-11] MEDS: NORVASC PO SCH (10:39)
[2017-01-11] MEDS: ZITHROMAX 500 MG in NACL 0.9% 250ML 250 ML IV SCH (12:22)
--- NOTE | 2017-01-11 14:13 | Progress Note ---
Assessment and Plan Assessment and plan: Patient is a 41-year-old morbid obese woman BMI 51.7 with a history of asthma, cardiomyopathy, obstructive sleep apnea, arthritis and tobacco dependency who presents to emergency department at [facility] with shortness of breath and wheezing after failing outpatient therapy. Chest x -rays pending. Patient primary care provider Dr. Florentino Crump and her soaker meat Dr. Arreola. She was on BiPAP 12/6 40%. Now on 2L, 97% -Acute hypoxic respiratory failure: Treat w/ oxygen -Acute exacerbation asthma versus COPD exacerbation: Consulted her soaker meat , treat with IV steroids, antibiotics, nebulizer treatment, antitussive adjusted because Tessalon works better per pt -Sepsis bronchitis, present on admission as evident by white blood cell count 13.1 with heart rate 100: Blood cultures and treat with antibiotics -Morbid obesity BMI 51.7: Lifestyle modifications -Tobacco dependency, counseled to stop, she says she hasn't smoked in 3 days, encouragement given -Insomina: ambien prn -Constipation: dulcolax prn -Sore throat, no pus seen on exam: check rapid strep==>neg -Chronic pain syndrome: norco Anticipate d/c tomorrow, set up o2, pt has a plethora of complaints centered around Chronic pain syndrome and receiving narcotics. She is noncompliant with wearing a CPAP mask at home, she says it is broken History Interval history: Patient seen and examined. Follow up on shortness breath and nonproductive cough which still present causing chest discomfort. No severe headaches. Imaging, old records, testing, labs, nursing notes reviewed. She c/o sore throat , constipation, chronic arthritic pains in back and insomnia. Bipap still on when I entered the room with respiratory therapy, d/c bipap and will monitor Hospitalist Physical - Physical exam Narrative exam: GEN: Morbidly obese BMI 51.7 ill-appearing AWAKE, ALERT, ORIENTATED x 3 HEENT: NCAT, PERRL, EOMI, OP CLEAR NECK: SUPPLE, NO THYROMEGALY, NO JVD, NO LAD CVS: Reg tachy NORMAL S1S2 LUNGS/CHEST: Bilateral expiratory wheezing NORMAL CHEST EXPANSION B, diminished AIR ENTRY B ABD: SOFT, NTND, GBS, NO REBOUND OR GUARDING EXT/SKIN: NO SIGNIFICANT EDEMA OR RASH MSK: FROM X 4 EXTREMITIES NEURO: CN 2-12 GROSSLY INTACT, NO FOCAL DEFICITS PSY: CALM - Constitutional Vitals: Temp Pulse Resp BP Pulse Ox 98.1 F 104 H 20 138/76 98 01/11/17 11:05 01/11/17 11:05 01/11/17 11:42 01/11/17 11:05 01/11/17 10:00 Results - Labs CBC & Chem 7: 01/10/17 07:56 01/10/17 07:56 Labs: Laboratory Last Values WBC 22.3 K/mm3 (4.5-11.0) H 01/10/17 07:56 RBC 4.65 M/mm3 (3.65-5.03) 01/10/17 07:56 Hgb 11.7 gm/dl (10.1-14.3) 01/10/17 07:56 Hct 37.6 % (30.3-42.9) 01/10/17 07:56 MCV 81 fl (79-97) 01/10/17 07:56 MCH 25 pg (28-32) L 01/10/17 07:56 MCHC 31 % (30-34) 01/10/17 07:56 RDW 17.2 % (13.2-15.2) H 01/10/17 07:56 Plt Count 300 K/mm3 (140-440) 01/10/17 07:56 Lymph % (Auto) 29.2 % (13.4-35.0) 01/09/17 Unknown [place] % (Auto) 5.2 % (0.0-7.3) 01/09/17 Unknown Eos % (Auto) 4.0 % (0.0-4.3) 01/09/17 Unknown Baso % (Auto) 0.6 % (0.0-1.8) 01/09/17 Unknown Lymph # 3.8 K/mm3 (1.2-5.4) 01/09/17 Unknown [place] # 0.7 K/mm3 (0.0-0.8) 01/09/17 Unknown Eos # 0.5 K/mm3 (0.0-0.4) H 01/09/17 Unknown Baso # 0.1 K/mm3 (0.0-0.1) 01/09/17 Unknown Add Manual Diff Complete 01/10/17 07:56 Total Counted 100 01/10/17 07:56 Seg Neutrophils % Edge Beader 01/10/17 07:56 Band Neutrophils % 0 % 01/10/17 07:56 Lymphocytes % (Manual) 8.0 % (13.4-35.0) L 01/10/17 07:56 Reactive Lymphs % (Man) 0 % 01/10/17 07:56 Monocytes % (Manual) 0 % (0.0-7.3) 01/10/17 07:56 Eosinophils % (Manual) 0 % (0.0-4.3) 01/10/17 07:56 Metamyelocytes % 0 % 01/10/17 07:56 Myelocytes % 0 % 01/10/17 07:56 Promyelocytes % 0 % 01/10/17 07:56 Blast Cells % 0 % 01/10/17 07:56 Nucleated RBC % Not Reportable 01/10/17 07:56 Seg Neutrophils # 8.0 K/mm3 (1.8-7.7) H 01/09/17 Unknown Seg Neutrophils # Man 20.5 K/mm3 (1.8-7.7) H 01/10/17 07:56 Band Neutrophils # 0.0 K/mm3 01/10/17 07:56 Lymphocytes # (Manual) 1.8 K/mm3 (1.2-5.4) 01/10/17 07:56 Abs React Lymphs (Man) 0.0 K/mm3 01/10/17 07:56 Monocytes # (Manual) 0.0 K/mm3 (0.0-0.8) 01/10/17 07:56 Eosinophils # (Manual) 0.0 K/mm3 (0.0-0.4) 01/10/17 07:56 Basophils # (Manual) 0.0 K/mm3 (0.0-0.1) 01/10/17 07:56 Metamyelocytes # 0.0 K/mm3 01/10/17 07:56 Myelocytes # 0.0 K/mm3 01/10/17 07:56 Promyelocytes # 0.0 K/mm3 01/10/17 07:56 Blast Cells # 0.0 K/mm3 01/10/17 07:56 WBC Morphology Not Reportable 01/10/17 07:56 Hypersegmented Neuts Not Reportable 01/10/17 07:56 Hyposegmented Neuts Not Reportable 01/10/17 07:56 Hypogranular Neuts Not Reportable 01/10/17 07:56 Smudge Cells Not Reportable 01/10/17 07:56 Toxic Granulation Not Reportable 01/10/17 07:56 Toxic Vacuolation Not Reportable 01/10/17 07:56 Dohle Bodies Not Reportable 01/10/17 07:56 Pelger-Huet Anomaly Not Reportable 01/10/17 07:56 Lili Rods Not Reportable 01/10/17 07:56 Platelet Estimate Cons 01/10/17 07:56 Clumped Platelets Not Reportable 01/10/17 07:56 Plt Clumps, EDTA Not Reportable 01/10/17 07:56 Large Platelets Rare 01/10/17 07:56 Giant Platelets Not Reportable 01/10/17 07:56 Platelet Satelliting Not Reportable 01/10/17 07:56 Plt Morphology Comment Not Reportable 01/10/17 07:56 RBC Morphology Not Reportable 01/10/17 07:56 Dimorphic RBCs Not Reportable 01/10/17 07:56 Polychromasia Not Reportable 01/10/17 07:56 Hypochromasia 1+ 01/10/17 07:56 Poikilocytosis Not Reportable 01/10/17 07:56 Anisocytosis 1+ 01/10/17 07:56 Microcytosis Not Reportable 01/10/17 07:56 Macrocytosis Not Reportable 01/10/17 07:56 Spherocytes Not Reportable 01/10/17 07:56 Pappenheimer Bodies Not Reportable 01/10/17 07:56 Sickle Cells Not Reportable 01/10/17 07:56 Target Cells Not Reportable 01/10/17 07:56 Tear Drop Cells Not Reportable 01/10/17 07:56 Ovalocytes Not Reportable 01/10/17 07:56 Helmet Cells Not Reportable 01/10/17 07:56 [place] Bodies Not Reportable 01/10/17 07:56 [place] Rings Not Reportable 01/10/17 07:56 Madie Cells Not Reportable 01/10/17 07:56 Bite Cells Not Reportable 01/10/17 07:56 Crenated Cell Not Reportable 01/10/17 07:56 Elliptocytes Not Reportable 01/10/17 07:56 Acanthocytes (Spur) Not Reportable 01/10/17 07:56 Rouleaux Not Reportable 01/10/17 07:56 Hemoglobin C Crystals Not Reportable 01/10/17 07:56 Schistocytes Not Reportable 01/10/17 07:56 Malaria parasites Not Reportable 01/10/17 07:56 Bruce Bodies Not Reportable 01/10/17 07:56 Hem Pathologist Commnt No 01/10/17 07:56 POC ABG pH 7.474 (7.35-7.45) H 01/09/17 04:48 POC ABG pCO2 35.1 (35-45) 01/09/17 04:48 POC ABG pO2 66 (80-105) L 01/09/17 04:48 POC ABG HCO3 25.7 01/09/17 04:48 POC ABG Total CO2 27 01/09/17 04:48 POC ABG O2 Sat 94 01/09/17 04:48 POC ABG Base Excess 2 01/09/17 04:48 FiO2 21 % 01/09/17 04:48 Sodium 139 mmol/L (137-145) 01/10/17 07:56 Potassium 4.3 mmol/L (3.6-5.0) 01/10/17 07:56 Chloride 101.7 mmol/L (98-107) 01/10/17 07:56 Carbon Dioxide 23 mmol/L (22-30) D 01/10/17 07:56 Anion Gap 19 mmol/L 01/10/17 07:56 BUN 10 mg/dL (7-17) 01/10/17 07:56 Creatinine 0.6 mg/dL (0.7-1.2) L 01/10/17 07:56 Estimated GFR > 60 ml/min 01/10/17 07:56 BUN/Creatinine Ratio 16.66 % 01/10/17 07:56 Glucose 225 mg/dL (65-100) H 01/10/17 07:56 Calcium 9.3 mg/dL (8.4-10.2) 01/10/17 07:56
--- NOTE | 2017-01-11 17:57 | Admit Criteria Form ---
Admission Criteria Documentation: RESPIRATORY FAILURE GRG Clinical Indications for Admission to Inpatient Care (Place 'X' for any and all applicable criteria): Hospital admission is needed for appropriate care of the patient because of acute respiratory failure or insufficiency as indicated by ANY ONE of the following(1)(2)(3)(4)(5)(6)(7)(8): [X ]I. Mechanical ventilation needed (acute invasive or noninvasive) [ ]II. Severe ventilation deficit as indicated by ANY ONE of the following (9) [ ]a) Respiratory acidosis (pH less than 7.32 and partial pressure of carbon dioxide greater than 40 mm Hg (5.3 kPa)) [ ]b) Partial pressure of carbon dioxide greater than 44 mm Hg (5.9 kPa ) (new) [ ]c) Airflow measurements less than 25% of predicted (eg, peak expiratory flow rate less than 100 L/minute) [ ]d) Forced vital capacity less than 15 mL/kg of ideal body weight, or 50% decrease in vital capacity from baseline [ ]III. Noncardiac pulmonary edema not resolving with rapid emergency treatment (8) [ ]IV. Severe respiratory distress as indicated by ANY ONE of the following: [ ]a) Severe tachypnea (respiratory rate greater than 30, greater than 45 for 6-month-old, greater than 60 for ) [ ]b) Severe hypoxemia (partial pressure of oxygen less than 50 mm Hg ( 6.7 kPa) on greater than 50% oxygen or partial pressure of oxygen to FIO2 ratio less than 200) [ ]c) Mental status deterioration from respiratory disease [ ]V. Airway obstruction or inadequate protection [A](10)(11) The original [employer] content created by [employer] has been revised. The portions of the content which have been revised are identified through the use of italic text or in bold, and [employer] has neither reviewed nor approved the modified material. All other unmodified content is copyright [employer]. Please see references footnoted in the original [employer] edition 2016 Admission Criteria Met: Yes
--- NOTE | 2017-01-11 19:19 | Progress Note ---
Assessment and Plan This is 41 year old female morbidly obese has history of asthma , Sleep apnea,hypertension,CHF came to the emergency room with shortness of breath,chest tightness. Patient also complaining nasal congestion and sore throat. Denies fever.Patient smokes 1 pack x 1 week for 20 years . Counselled to stop smoking. Denies alcohol or drug abuse. 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 Allergic to Iodine and Shell fish.Patients chest xray reported normal. Patients ABGs PH 7. 47 PCO2 35 PO2 66 HCO3 26 O2 saturation 94% on room air.Patient is not using her CPAP at home for more than year. 01/11/17 Patient alert, awake.Still complaining some shortness of breath.Receiving breathing treatment. O2 saturation 96% on 2 litres O2. - Patient Problems (1) Acute bronchitis Current Visit: Yes Status: Acute Qualifiers: Bronchitis organism: B Plan to address problem: Patient is on Zithromax and ceftrioxone. (2) Asthma exacerbation Current Visit: Yes Status: Acute Qualifiers: Asthma severity: A Plan to address problem: .O2 2 litres via nasal canula. BIPAP 16/6, rate 20, FiO2 28%. Albuterol/atrovent aerosol treatments q 6 hours. Continue I/V solumedral. Continue ceftrioxone and Zithramax. Continue S/C Lovenox. Recommend protonix. (3) Morbid obesity Current Visit: Yes Status: Chronic Qualifiers: Obesity type: O Plan to address problem: Nutritional consultation for weight reduction diet. Recommend to loose weight, (4) Sleep apnea Current Visit: Yes Status: Chronic Qualifiers: Sleep apnea type: S Plan to address problem: Patient is on BIPAP 16/6, rate 20, FIO2 28%. Subjective Date of service: 01/11/17 Interval history: Patient alert, awake.Still complaining some shortness of breath.Receiving breathing treatment. O2 saturation 96% on 2 litres O2. Objective Vital Signs - 12hr 01/11/17 01/11/17 01/11/17 07:20 08:20 08:58 Temperature 98.0 F Pulse Rate Pulse Rate [ Anterior Bilateral Throughout] Pulse Rate [ 92 H Posterior Bilateral Throughout] Pulse Rate [ 98 H Right Radial] Pulse Rate [ Throughout] Respiratory 18 22 Rate Respiratory Rate [Anterior Bilateral Throughout] Respiratory Rate [Left Chest] Respiratory 18 Rate [Posterior Bilateral Throughout] Respiratory Rate [ Throughout] Blood Pressure 126/69 [Right Arm] Blood Pressure 126/69 [Right Radial Artery] O2 Sat by Pulse 95 Oximetry 01/11/17 01/11/17 01/11/17 08:59 09:11 10:00 Temperature Pulse Rate 113 H Pulse Rate [ Anterior Bilateral Throughout] Pulse Rate [ 107 H Posterior Bilateral Throughout] Pulse Rate [ 113 H Right Radial] Pulse Rate [ Throughout] Respiratory 22 Rate Respiratory Rate [Anterior Bilateral Throughout] Respiratory 20 Rate [Left Chest] Respiratory 18 Rate [Posterior Bilateral Throughout] Respiratory Rate [ Throughout] Blood Pressure [Right Arm] Blood Pressure [Right Radial Artery] O2 Sat by Pulse 98 98 Oximetry 01/11/17 01/11/17 01/11/17 10:42 11:05 11:42 Temperature 98.1 F Pulse Rate Pulse Rate [ Anterior Bilateral Throughout] Pulse Rate [ Posterior Bilateral Throughout] Pulse Rate [ 104 H Right Radial] Pulse Rate [ Throughout] Respiratory 22 20 20 Rate Respiratory Rate [Anterior Bilateral Throughout] Respiratory Rate [Left Chest] Respiratory Rate [Posterior Bilateral Throughout] Respiratory Rate [ Throughout] Blood Pressure 138/76 [Right Arm] Blood Pressure 138/76 [Right Radial Artery] O2 Sat by Pulse Oximetry 01/11/17 01/11/17 01/11/17 14:42 14:55 14:58 Temperature 98.6 F Pulse Rate Pulse Rate [ 112 H Anterior Bilateral Throughout] Pulse Rate [ 112 H Posterior Bilateral Throughout] Pulse Rate [ 113 H Right Radial] Pulse Rate [ 112 H Throughout] Respiratory 22 Rate Respiratory 18 Rate [Anterior Bilateral Throughout] Respiratory Rate [Left Chest] Respiratory 18 Rate [Posterior Bilateral Throughout] Respiratory 18 Rate [ Throughout] Blood Pressure 138/81 [Right Arm] Blood Pressure 138/81 [Right Radial Artery] O2 Sat by Pulse Oximetry 01/11/17 17:55 Temperature Pulse Rate Pulse Rate [ Anterior Bilateral Throughout] Pulse Rate [ Posterior Bilateral Throughout] Pulse Rate [ Right Radial] Pulse Rate [ Throughout] Respiratory 20 Rate Respiratory Rate [Anterior Bilateral Throughout] Respiratory Rate [Left Chest] Respiratory Rate [Posterior Bilateral Throughout] Respiratory Rate [ Throughout] Blood Pressure [Right Arm] Blood Pressure [Right Radial Artery] O2 Sat by Pulse Oximetry Constitutional: no acute distress, alert, appears uncomfortable Eyes: non-icteric ENT: oropharynx moist Neck: no JVD, JVD Ascultation: Bilateral: diminished breath sounds, rhonchi Cardiovascular: regular rate and rhythm Gastrointestinal: normoactive bowel sounds, soft, non-tender Integumentary: normal Extremities: no cyanosis, no edema, pink and warm Neurologic: normal mental status, non-focal exam, pupils equal and round, CN II- XII normal Psychiatric: anxious CBC and BMP: 01/10/17 07:56 01/10/17 07:56 ABG, PT/INR, D-dimer: ABG POC ABG pH 7.474 (7.35-7.45) H 01/09/17 04:48 POC ABG pCO2 35.1 (35-45) 01/09/17 04:48 POC ABG pO2 66 (80-105) L 01/09/17 04:48 POC ABG HCO3 25.7 01/09/17 04:48 POC ABG Total CO2 27 01/09/17 04:48 POC ABG O2 Sat 94 01/09/17 04:48 Abnormal lab findings: Abnormal Labs 01/09/17 01/10/17 01/10/17 Unknown 07:56 07:56 WBC 13.1 H 22.3 H RBC 5.04 H MCH 25 L 25 L RDW 16.4 H 17.2 H Eos # 0.5 H Lymphocytes % (Manual) 8.0 L Seg Neutrophils # 8.0 H Seg Neutrophils # Man 20.5 H Creatinine 0.6 L Glucose 225 H
[2017-01-12] MEDS: AMBIEN PO PRN (00:51)
[2017-01-12] MEDS: DUONEB *Not for PRN Use IH SCH ×4 (01:24→20:46)
[2017-01-12] MEDS: APRESOLINE IV PRN (01:55)
[2017-01-12] MEDS: TESSALON PERLES PO SCH ×3 (06:03→21:18)
[2017-01-12 06:16] LABS: Hematocrit 36.6 % (30.3-42.9); Hemoglobin 11.5 gm/dl (10.1-14.3); Mean Corpuscular HGB Conc 31 % (30-34); Mean Corpuscular Volume 81 fl (79-97); Platelet Count 294 K/mm3 (140-440); Red Blood Count 4.52 M/mm3 (3.65-5.03); Red Cell Distribution Width 16.4 % (13.2-15.2); White Blood Count 13.5 K/mm3 (4.5-11.0)
[2017-01-12 06:23] LABS: Mean Corpuscular Hemoglobin 25 pg (28-32)
[2017-01-12 06:33] LABS: Anion Gap 16 mmol/L; BUN/Creatinine Ratio 26.66; Blood Urea Nitrogen 16 mg/dL (7-17); Calcium 9.1 mg/dL (8.4-10.2); Carbon Dioxide 27 mmol/L (22-30); Chloride 100.2 mmol/L (98-107); Glucose 154 mg/dL (65-100); Potassium 4.4 mmol/L (3.6-5.0); Sodium 139 mmol/L (137-145)
[2017-01-12] MEDS: ROCEPHIN/NS 1 GM/50 ML 1 GM/50 ML BAG IV SCH (10:32)
[2017-01-12] MEDS: MUCINEX ER PO SCH ×2 (10:33→21:18)
[2017-01-12] MEDS: LOVENOX SUB-Q SCH (10:33)
[2017-01-12] MEDS: NORCO 5/325 PO PRN ×3 (10:33→23:35)
[2017-01-12] MEDS: NORVASC PO SCH (10:34)
--- NOTE | 2017-01-12 17:03 | Progress Note ---
Assessment and Plan Assessment and plan: Acute hypoxic respiratory failure - On oxygen support - Treat the underlying COPD/bronchitis/asthma - CTA ordered COPD/asthma exacerbation - Patient is on Solu-Medrol, oxygen support, IV antibiotics, nebulizer treatment - Pulmonary is following Shortness of breath on exertion - when the patient walks she developed SOB despite she was saturating in the mid 90's, she became tachycardic and hypertensive - patient needs cardiac work up, troponin and echo ordered - Cardiology consulted Morbid obesity - Counseled about losing weight and patient is willing to do it Tobacco abuse - counselled about quit smoking DVT prophylaxis - on lovenox Disposition - Continue inpatient care History Interval history: Patient was seen and evaluated this morning, she has shortness of breath on exertion. Denied chest pain. Hospitalist Physical - Physical exam Narrative exam: Not in cardiopulmonary distress. The patient is morbidly obese. Vital signs as documented. Head exam is unremarkable. No scleral icterus . Neck is without jugular venous distension, thyromegaly, or carotid bruits. Lungs are clear to auscultation. Cardiac exam reveals regular rate and Rhythm. First and second heart sounds normal. No murmurs, rubs or gallops. Abdominal exam reveals normal bowel sounds, no masses, no organomegaly and no aortic enlargement. Extremities are nonedematous and both femoral and pedal pulses are normal. 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 - Constitutional Vitals: Temp Pulse Resp BP Pulse Ox 98.1 F 91 H 20 147/81 95 01/12/17 08:05 01/12/17 10:34 01/12/17 08:55 01/12/17 10:34 01/12/17 10:00 Results - Labs CBC & Chem 7: 01/12/17 05:08 01/12/17 05:08 Labs: Laboratory Last Values WBC 13.5 K/mm3 (4.5-11.0) H 01/12/17 05:08 RBC 4.52 M/mm3 (3.65-5.03) 01/12/17 05:08 Hgb 11.5 gm/dl (10.1-14.3) 01/12/17 05:08 Hct 36.6 % (30.3-42.9) 01/12/17 05:08 MCV 81 fl (79-97) 01/12/17 05:08 MCH 25 pg (28-32) L 01/12/17 05:08 MCHC 31 % (30-34) 01/12/17 05:08 RDW 16.4 % (13.2-15.2) H 01/12/17 05:08 Plt Count 294 K/mm3 (140-440) 01/12/17 05:08 Lymph % (Auto) 29.2 % (13.4-35.0) 01/09/17 Unknown [place] % (Auto) 5.2 % (0.0-7.3) 01/09/17 Unknown Eos % (Auto) 4.0 % (0.0-4.3) 01/09/17 Unknown Baso % (Auto) 0.6 % (0.0-1.8) 01/09/17 Unknown Lymph # 3.8 K/mm3 (1.2-5.4) 01/09/17 Unknown [place] # 0.7 K/mm3 (0.0-0.8) 01/09/17 Unknown Eos # 0.5 K/mm3 (0.0-0.4) H 01/09/17 Unknown Baso # 0.1 K/mm3 (0.0-0.1) 01/09/17 Unknown Add Manual Diff Complete 01/10/17 07:56 Total Counted 100 01/10/17 07:56 Seg Neutrophils % Rectifying Operator 01/10/17 07:56 Band Neutrophils % 0 % 01/10/17 07:56 Lymphocytes % (Manual) 8.0 % (13.4-35.0) L 01/10/17 07:56 Reactive Lymphs % (Man) 0 % 01/10/17 07:56 Monocytes % (Manual) 0 % (0.0-7.3) 01/10/17 07:56 Eosinophils % (Manual) 0 % (0.0-4.3) 01/10/17 07:56 Metamyelocytes % 0 % 01/10/17 07:56 Myelocytes % 0 % 01/10/17 07:56 Promyelocytes % 0 % 01/10/17 07:56 Blast Cells % 0 % 01/10/17 07:56 Nucleated RBC % Not Reportable 01/10/17 07:56 Seg Neutrophils # 8.0 K/mm3 (1.8-7.7) H 01/09/17 Unknown Seg Neutrophils # Man 20.5 K/mm3 (1.8-7.7) H 01/10/17 07:56 Band Neutrophils # 0.0 K/mm3 01/10/17 07:56 Lymphocytes # (Manual) 1.8 K/mm3 (1.2-5.4) 01/10/17 07:56 Abs React Lymphs (Man) 0.0 K/mm3 01/10/17 07:56 Monocytes # (Manual) 0.0 K/mm3 (0.0-0.8) 01/10/17 07:56 Eosinophils # (Manual) 0.0 K/mm3 (0.0-0.4) 01/10/17 07:56 Basophils # (Manual) 0.0 K/mm3 (0.0-0.1) 01/10/17 07:56 Metamyelocytes # 0.0 K/mm3 01/10/17 07:56 Myelocytes # 0.0 K/mm3 01/10/17 07:56 Promyelocytes # 0.0 K/mm3 01/10/17 07:56 Blast Cells # 0.0 K/mm3 01/10/17 07:56 WBC Morphology Not Reportable 01/10/17 07:56 Hypersegmented Neuts Not Reportable 01/10/17 07:56 Hyposegmented Neuts Not Reportable 01/10/17 07:56 Hypogranular Neuts Not Reportable 01/10/17 07:56 Smudge Cells Not Reportable 01/10/17 07:56 Toxic Granulation Not Reportable 01/10/17 07:56 Toxic Vacuolation Not Reportable 01/10/17 07:56 Dohle Bodies Not Reportable 01/10/17 07:56 Pelger-Huet Anomaly Not Reportable 01/10/17 07:56 Lili Rods Not Reportable 01/10/17 07:56 Platelet Estimate Cons 01/10/17 07:56 Clumped Platelets Not Reportable 01/10/17 07:56 Plt Clumps, EDTA Not Reportable 01/10/17 07:56 Large Platelets Rare 01/10/17 07:56 Giant Platelets Not Reportable 01/10/17 07:56 Platelet Satelliting Not Reportable 01/10/17 07:56 Plt Morphology Comment Not Reportable 01/10/17 07:56 RBC Morphology Not Reportable 01/10/17 07:56 Dimorphic RBCs Not Reportable 01/10/17 07:56 Polychromasia Not Reportable 01/10/17 07:56 Hypochromasia 1+ 01/10/17 07:56 Poikilocytosis Not Reportable 01/10/17 07:56 Anisocytosis 1+ 01/10/17 07:56 Microcytosis Not Reportable 01/10/17 07:56 Macrocytosis Not Reportable 01/10/17 07:56 Spherocytes Not Reportable 01/10/17 07:56 Pappenheimer Bodies Not Reportable 01/10/17 07:56 Sickle Cells Not Reportable 01/10/17 07:56 Target Cells Not Reportable 01/10/17 07:56 Tear Drop Cells Not Reportable 01/10/17 07:56 Ovalocytes Not Reportable 01/10/17 07:56 Helmet Cells Not Reportable 01/10/17 07:56 [place] Bodies Not Reportable 01/10/17 07:56 [place] Rings Not Reportable 01/10/17 07:56 [place] Cells Not Reportable 01/10/17 07:56 Bite Cells Not Reportable 01/10/17 07:56 Crenated Cell Not Reportable 01/10/17 07:56 Elliptocytes Not Reportable 01/10/17 07:56 Acanthocytes (Spur) Not Reportable 01/10/17 07:56 Rouleaux Not Reportable 01/10/17 07:56 Hemoglobin C Crystals Not Reportable 01/10/17 07:56 Schistocytes Not Reportable 01/10/17 07:56 Malaria parasites Not Reportable 01/10/17 07:56 Bruce Bodies Not Reportable 01/10/17 07:56 Hem Pathologist Commnt No 01/10/17 07:56 POC ABG pH 7.474 (7.35-7.45) H 01/09/17 04:48 POC ABG pCO2 35.1 (35-45) 01/09/17 04:48 POC ABG pO2 66 (80-105) L 01/09/17 04:48 POC ABG HCO3 25.7 01/09/17 04:48 POC ABG Total CO2 27 01/09/17 04:48 POC ABG O2 Sat 94 01/09/17 04:48 POC ABG Base Excess 2 01/09/17 04:48 FiO2 21 % 01/09/17 04:48 Sodium 139 mmol/L (137-145) 01/12/17 05:08 Potassium 4.4 mmol/L (3.6-5.0) 01/12/17 05:08 Chloride 100.2 mmol/L (98-107) 01/12/17 05:08 Carbon Dioxide 27 mmol/L (22-30) 01/12/17 05:08 Anion Gap 16 mmol/L 01/12/17 05:08 BUN 16 mg/dL (7-17) 01/12/17 05:08 Creatinine 0.6 mg/dL (0.7-1.2) L 01/12/17 05:08 Estimated GFR > 60 ml/min 01/12/17 05:08 BUN/Creatinine Ratio 26.66 % 01/12/17 05:08 Glucose 154 mg/dL (65-100) H 01/12/17 05:08 Calcium 9.1 mg/dL (8.4-10.2) 01/12/17 05:08
--- NOTE | 2017-01-12 19:17 | Progress Note ---
Assessment and Plan This is 41 year old female morbidly obese has history of asthma , Sleep apnea,hypertension,CHF came to the emergency room with shortness of breath,chest tightness. Patient also complaining nasal congestion and sore throat. Denies fever.Patient smokes 1 pack x 1 week for 20 years . Counselled to stop smoking. Denies alcohol or drug abuse. 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 Allergic to Iodine and Shell fish.Patients chest xray reported normal. Patients ABGs PH 7. 47 PCO2 35 PO2 66 HCO3 26 O2 saturation 94% on room air.Patient is not using her CPAP at home for more than year. 01/12/17 Patient alert, awake.Breathing better today. O2 saturation 97% on 2 litres O2. - Patient Problems (1) Acute bronchitis Current Visit: Yes Status: Acute Qualifiers: Bronchitis organism: B Plan to address problem: Patient is on Zithromax and ceftrioxone. (2) Asthma exacerbation Current Visit: Yes Status: Acute Qualifiers: Asthma severity: A Plan to address problem: .O2 2 litres via nasal canula. BIPAP 16/6, rate 20, FiO2 28%. Albuterol/atrovent aerosol treatments q 6 hours. Continue I/V solumedral. Continue ceftrioxone and Zithramax. Continue S/C Lovenox. Recommend protonix. (3) Morbid obesity Current Visit: Yes Status: Chronic Qualifiers: Obesity type: O Plan to address problem: Nutritional consultation for weight reduction diet. Recommend to loose weight, (4) Sleep apnea Current Visit: Yes Status: Chronic Qualifiers: Sleep apnea type: S Plan to address problem: Patient is on BIPAP 16/6, rate 20, FIO2 28%. Subjective Date of service: 01/12/17 Interval history: Patient alert, awake.Breathing better today. O2 saturation 97% on 2 litres O2. Objective Vital Signs - 12hr 01/12/17 01/12/17 01/12/17 08:05 08:45 08:55 Temperature 98.1 F Pulse Rate Pulse Rate [ 108 H 104 H Anterior Bilateral Throughout] Pulse Rate [ 91 H Right Radial] Respiratory 20 Rate Respiratory 20 20 Rate [Anterior Bilateral Throughout] Blood Pressure Blood Pressure 147/81 [Right Arm] O2 Sat by Pulse 95 Oximetry 0701/12/17 01/12/17 10:00 10:34 15:59 Temperature 97.7 F Pulse Rate 91 H Pulse Rate [ Anterior Bilateral Throughout] Pulse Rate [ 93 H Right Radial] Respiratory 20 Rate Respiratory Rate [Anterior Bilateral Throughout] Blood Pressure 147/81 Blood Pressure 156/86 [Right Arm] O2 Sat by Pulse 95 97 Oximetry Constitutional: no acute distress, alert, appears uncomfortable Eyes: non-icteric ENT: oropharynx moist Neck: no JVD, JVD Ascultation: Bilateral: diminished breath sounds, rhonchi Cardiovascular: regular rate and rhythm Gastrointestinal: normoactive bowel sounds, soft, non-tender Integumentary: normal Extremities: no cyanosis, no edema, pink and warm Neurologic: normal mental status, non-focal exam, pupils equal and round, CN II- XII normal Psychiatric: anxious CBC and BMP: 01/12/17 05:08 01/12/17 05:08 ABG, PT/INR, D-dimer: ABG POC ABG pH 7.474 (7.35-7.45) H 01/09/17 04:48 POC ABG pCO2 35.1 (35-45) 01/09/17 04:48 POC ABG pO2 66 (80-105) L 01/09/17 04:48 POC ABG HCO3 25.7 01/09/17 04:48 POC ABG Total CO2 27 01/09/17 04:48 POC ABG O2 Sat 94 01/09/17 04:48 Abnormal lab findings: Abnormal Labs 01/09/17 01/10/17 01/10/17 Unknown 07:56 07:56 WBC 13.1 H 22.3 H RBC 5.04 H MCH 25 L 25 L RDW 16.4 H 17.2 H Eos # 0.5 H Lymphocytes % (Manual) 8.0 L Seg Neutrophils # 8.0 H Seg Neutrophils # Man 20.5 H Creatinine 0.6 L Glucose 225 H 01/12/17 01/12/17 05:08 05:08 WBC 13.5 H RBC MCH 25 L RDW 16.4 H Eos # Lymphocytes % (Manual) Seg Neutrophils # Seg Neutrophils # Man Creatinine 0.6 L Glucose 154 H
[2017-01-12] MEDS: ZITHROMAX 500 MG in NACL 0.9% 250ML 250 ML IV SCH (19:48)
[2017-01-13] MEDS: AMBIEN PO PRN (01:15)
[2017-01-13] MEDS: DUONEB *Not for PRN Use IH SCH ×4 (01:53→22:14)
[2017-01-13] MEDS: TESSALON PERLES PO SCH ×3 (06:16→22:07)
[2017-01-13 08:28] LABS: Basophils % (Auto) 0.2 % (0.0-1.8); Hematocrit 36.8 % (30.3-42.9); Hemoglobin 11.5 gm/dl (10.1-14.3); Mean Corpuscular HGB Conc 31 % (30-34); Mean Corpuscular Volume 81 fl (79-97); Platelet Count 305 K/mm3 (140-440); Red Blood Count 4.55 M/mm3 (3.65-5.03); Red Cell Distribution Width 16.4 % (13.2-15.2); White Blood Count 12.8 K/mm3 (4.5-11.0)
[2017-01-13 08:29] LABS: Mean Corpuscular Hemoglobin 25 pg (28-32)
[2017-01-13 08:57] LABS: Alanine Aminotransferase 27 units/L (7-56); Albumin 3.4 g/dL (3.9-5); Alkaline Phosphatase 51 units/L (35-129); Anion Gap 15 mmol/L; BUN/Creatinine Ratio 25.71; Blood Urea Nitrogen 18 mg/dL (7-17); Carbon Dioxide 28 mmol/L (22-30); Chloride 100.4 mmol/L (98-107); Glucose 164 mg/dL (65-100); Potassium 4.7 mmol/L (3.6-5.0); Sodium 139 mmol/L (137-145); Total Protein 6.8 g/dL (6.3-8.2)
--- NOTE | 2017-01-13 11:17 | Nuclear Medicine Report ---
Ventilation/perfusion lung scan. History: Shortness of breath. Findings: The ventilation study demonstrates normal inhalation and equilibrium phase. There is mild air trapping in the lung bases on the washout phase. The perfusion scan reveals an isolated ill-defined area of decreased activity in the left lung base. There is a relatively matching ventilation abnormality in this area. No additional focal perfusion abnormalities are seen. Impression: Low probability of embolic disease.
[2017-01-13] MEDS: ROCEPHIN/NS 1 GM/50 ML 1 GM/50 ML BAG IV SCH (11:32)
[2017-01-13] MEDS: NORCO 5/325 PO PRN ×2 (11:33→22:07)
[2017-01-13] MEDS: NORVASC PO SCH (11:33)
[2017-01-13] MEDS: MUCINEX ER PO SCH ×2 (11:34→22:07)
[2017-01-13] MEDS: LOVENOX SUB-Q SCH (11:34)
--- NOTE | 2017-01-13 11:39 | Consultation ---
History of Present Illness Consult date: 01/13/17 Requesting physician: CARL LIZARRAGA Consult reason: shortness of breath History of present illness: The patient is a 41 YO female with a past medical history significant for asthma , HTN, JUDSON (does not use home CPAP because tubing is currently broken), morbid obesity, ? lupus, "congestive heart failure" after the of her child 5 years ago, tobacco use. She presented with c/o SOB both at rest and with minimal exertion and wheezing. She reports that she recently presented to the ED at [place] with similar complaints and was told she had viral bronchitis and was given steroids. Her symptoms did not improve. She denies any chest pain, palpitations, n/v, diphoresis, dizziness, or syncope. She reports compliance with all of her medications, including asthma medications. She Her PCP is Dr. Florentino Crump. Past History Past Medical History: heart failure, hypertension, other (Asthma, Sleep apnea) Social history: , smoking Medications and Allergies Allergies Allergy/AdvReac Type Severity Reaction Status Date / Time iodine Allergy Rash Verified 06/09/15 01:19 shellfish derived Allergy Rash Verified 06/09/15 01:19 Home Medications Medication Instructions Recorded Confirmed Last Taken Type Albuterol Sulfate [Proventil HFA] 1 - 2 puff IH Q4H PRN #1 hfa.aer.ad 09/24/14 01/09/17 01/08/17 Rx Naproxen [Naprosyn TAB] 500 mg PO BID #20 tablet 03/20/16 01/09/17 Unknown Rx amLODIPine [Norvasc] 5 mg PO DAILY #90 tab 03/20/16 01/09/17 Unknown Rx ALBUTEROL Inhaler [ProAir HFA 2 puff IH QID PRN #1 inhalation 05/20/16 01/09/17 01/08/17 Rx Inhaler] Cetirizine HCl [ZyrTEC] 10 mg PO PRN 01/09/17 01/09/17 Unknown History Furosemide [Lasix] 20 mg PO QDAY 01/09/17 01/09/17 Unknown History Active Meds: Active Medications Acetaminophen (Tylenol) 650 mg PO Q4H PRN PRN Reason: Pain MILD(1-3)/Fever >100.5/CESAR Last Admin: 01/09/17 21:23 Dose: 650 mg Acetaminophen/Hydrocodone Bitart (Beatty 5/325) 1 each PO Q4H PRN PRN Reason: Pain, Moderate (4-6) Last Admin: 01/13/17 11:33 Dose: 1 each Albuterol/Ipratropium (Duoneb 0.5 Mg-3 Mg/3 Ml Soln) 1 ampul IH Q6HRT [facility] Last Admin: 01/13/17 09:06 Dose: 1 ampul Amlodipine Besylate (Norvasc) 5 mg PO DAILY [facility] Last Admin: 01/13/17 11:33 Dose: 5 mg Benzonatate (Tessalon Perles) 100 mg PO Q8HR [facility] Last Admin: 01/13/17 06:16 Dose: 100 mg Bisacodyl (Dulcolax) 10 mg PO QDAY PRN PRN Reason: Constipation Enoxaparin Sodium (Lovenox) 40 mg SUB-Q QDAY [facility] Last Admin: 01/13/17 11:34 Dose: 40 mg Guaifenesin (Mucinex Er) 600 mg PO BID [facility] Last Admin: 01/13/17 11:34 Dose: 600 mg Hydralazine HCl (Apresoline) 10 mg IV Q4HR PRN PRN Reason: Hypertension Last Admin: 01/12/17 01:55 Dose: 10 mg Azithromycin 500 mg/ Sodium (Chloride) 250 mls @ 250 mls/hr IV Q24HR [facility] PRN Reason: Protocol Last Admin: 01/12/17 19:48 Dose: 250 mls/hr Ceftriaxone Sodium (Rocephin/Ns 1 Gm/50 Ml) 1 gm in 50 mls @ 100 mls/hr IV Q24HR [facility] PRN Reason: Protocol Last Admin: 01/13/17 11:32 Dose: 100 mls/hr Methylprednisolone Sodium Succinate (Solu-Medrol) 125 mg IV Q6H [facility] Last Admin: 01/13/17 04:01 Dose: Not Given Zolpidem Tartrate (Ambien) 5 mg PO QHS PRN PRN Reason: Sleep Last Admin: 01/13/17 01:15 Dose: 5 mg Review of Systems Constitutional: no weight loss, no weight gain, no fever, no chills, no sweats Ears, nose, mouth and throat: no ear pain, no nose pain, no sinus pressure, no sinus pain Cardiovascular: shortness of breath, dyspnea on exertion, no chest pain, no orthopnea, no palpitations, no rapid/irregular heart beat, no edema, no syncope , no lightheadedness Respiratory: shortness of breath, dyspnea on exertion, sleep apnea, other ( wheezing), no cough, no congestion, no wheezing, no pain on inspiration Gastrointestinal: no abdominal pain, no nausea, no vomiting, no diarrhea, no constipation, no change in bowel habits Genitourinary Female: no pelvic pain, no flank pain, no dysuria, no urinary frequency, no urgency Musculoskeletal: no neck stiffness, no neck pain, no shooting arm pain, no arm numbness/tingling, no low back pain, no shooting leg pain, no leg numbness/ tingling, no redness of joints Integumentary: no rash, no pruritis, no redness, no sores, no wounds Neurological: no paralysis, no weakness, no parathesias, no numbness, no tingling, no seizures, no syncope Endocrine: no cold intolerance, no heat intolerance Hematologic/Lymphatic: no easy bruising, no easy bleeding, no lymphadenopathy Allergic/Immunologic: wheezing, no urticaria, no persistent infections Physical Examination Last Vital Signs Temp 98.1 F 01/13/17 08:00 Pulse 100 H 01/13/17 09:07 Resp 17 01/13/17 09:07 BP 150/90 01/13/17 11:33 Pulse Ox 98 01/13/17 09:08 General appearance: no acute distress HEENT: Positive: PERRL, Normocephaly, Mucus Membranes Moist Neck: Positive: neck supple, trachea midline Cardiac: Positive: Reg Rate and Rhythm, S1/S2 Lungs: Positive: Decreased Breath Sounds, Wheezes (expiratory ). Negative: Rales, Rhonchi Neuro: Positive: Grossly Intact, Cranial Nerve 2-12 Intact Abdomen: Positive: Unremarkable, Soft, Active Bowel Sounds. Negative: Tender Skin: Positive: Clear. Negative: Rash, Wound Musculoskeletal: No Fluid Collection, No Pain, Normal Range of Motion Extremities: Absent: edema Results 01/13/17 08:13 01/13/17 08:13 Cardiac Enzymes 01/13/17 Range/Units 08:13 AST 18 (5-40) units/L CBC 01/13/17 Range/Units 08:13 WBC 12.8 H (4.5-11.0) K/mm3 RBC 4.55 (3.65-5.03) M/mm3 Hgb 11.5 (10.1-14.3) gm/dl Hct 36.8 (30.3-42.9) % Plt Count 305 (140-440) K/mm3 Lymph # 1.5 (1.2-5.4) K/mm3 [place] # 0.6 (0.0-0.8) K/mm3 Eos # 0.0 (0.0-0.4) K/mm3 Baso # 0.0 (0.0-0.1) K/mm3 Comprehensive Metabolic Panel 01/13/17 Range/Units 08:13 Sodium 139 (137-145) mmol/L Potassium 4.7 (3.6-5.0) mmol/L Chloride 100.4 (98-107) mmol/L Carbon Dioxide 28 (22-30) mmol/L BUN 18 H (7-17) mg/dL Creatinine 0.7 (0.7-1.2) mg/dL Glucose 164 H (65-100) mg/dL Calcium 9.0 (8.4-10.2) mg/dL AST 18 (5-40) units/L ALT 27 (7-56) units/L Alkaline Phosphatase 51 (35-129) units/L Total Protein 6.8 (6.3-8.2) g/dL Albumin 3.4 L (3.9-5) g/dL - Imaging and Cardiology Echo: pending EKG: pending EKG interpretations - Telemetry EKG Rhythm: Sinus Rhythm Assessment and Plan Assessment: Acute bronchitis Asthma exacerbation HTN H/o "congestive heart failure" after the of her child 5 years ago JUDSON - noncompliant with PM CPAP Morbid obesity H/o ? lupus Tobacco use - cessation encouraged Plan: CXR with NAF. V/Q low probability for PE. Await echo. Obtain 12-lead EKG. Initiate HCTZ. Cont norvasc. Obtain BRYNN titer. Assessment and plan reviewed with pt at bedside. The patient has been seen in conjunction with Dr. Skelton who agrees with the assessment and plan of care.
[2017-01-13] MEDS: ZITHROMAX 500 MG in NACL 0.9% 250ML 250 ML IV SCH (14:08)
[2017-01-13] MEDS: HCTZ PO SCH (14:09)
--- NOTE | 2017-01-13 16:44 | Progress Note ---
Assessment and Plan Assessment and plan: Acute hypoxic respiratory failure - On oxygen support - Treat the underlying COPD/bronchitis/asthma - VQ scan low priority for PE COPD/asthma exacerbation - Patient is on Solu-Medrol, oxygen support, IV antibiotics, nebulizer treatment - Pulmonary is following Shortness of breath on exertion - when the patient walks she developed SOB despite she was saturating in the mid 90's, she became tachycardic and hypertensive - patient needs cardiac work up, troponin and echo ordered - Cardiology consulted - Echo ejection fraction is 55-60% no diastolic dysfunction Morbid obesity - Counseled about losing weight and patient is willing to do it Tobacco abuse - counselled about quit smoking DVT prophylaxis - on lovenox Disposition - Continue inpatient care History Interval history: Patient was seen and evaluated this morning, she has shortness of breath on exertion. Denied chest pain. Hospitalist Physical - Physical exam Narrative exam: Not in cardiopulmonary distress. The patient is morbidly obese. Vital signs as documented. Head exam is unremarkable. No scleral icterus . Neck is without jugular venous distension, thyromegaly, or carotid bruits. Lungs wheezing all over the chest. Cardiac exam reveals regular rate and Rhythm. First and second heart sounds normal. No murmurs, rubs or gallops. Abdominal exam reveals normal bowel sounds, no masses, no organomegaly and no aortic enlargement. Extremities are nonedematous and both femoral and pedal pulses are normal. WARRANT SERVER: Alert and oriented 3. - Constitutional Vitals: Temp Pulse Resp BP Pulse Ox 98.1 F 97 H 19 150/90 98 01/13/17 08:00 01/13/17 14:19 01/13/17 14:19 01/13/17 11:33 01/13/17 09:08 General appearance: Present: no acute distress Results - Labs CBC & Chem 7: 01/13/17 08:13 01/13/17 08:13 Labs: Laboratory Last Values WBC 12.8 K/mm3 (4.5-11.0) H 01/13/17 08:13 RBC 4.55 M/mm3 (3.65-5.03) 01/13/17 08:13 Hgb 11.5 gm/dl (10.1-14.3) 01/13/17 08:13 Hct 36.8 % (30.3-42.9) 01/13/17 08:13 MCV 81 fl (79-97) 01/13/17 08:13 MCH 25 pg (28-32) L 01/13/17 08:13 MCHC 31 % (30-34) 01/13/17 08:13 RDW 16.4 % (13.2-15.2) H 01/13/17 08:13 Plt Count 305 K/mm3 (140-440) 01/13/17 08:13 Lymph % (Auto) 11.5 % (13.4-35.0) L 01/13/17 08:13 [place] % (Auto) 4.5 % (0.0-7.3) 01/13/17 08:13 Eos % (Auto) 0.0 % (0.0-4.3) 01/13/17 08:13 Baso % (Auto) 0.2 % (0.0-1.8) 01/13/17 08:13 Lymph # 1.5 K/mm3 (1.2-5.4) 01/13/17 08:13 [place] # 0.6 K/mm3 (0.0-0.8) 01/13/17 08:13 Eos # 0.0 K/mm3 (0.0-0.4) 01/13/17 08:13 Baso # 0.0 K/mm3 (0.0-0.1) 01/13/17 08:13 Add Manual Diff Complete 01/10/17 07:56 Total Counted 100 01/10/17 07:56 Seg Neutrophils % 83.8 % (40.0-70.0) H 01/13/17 08:13 Band Neutrophils % 0 % 01/10/17 07:56 Lymphocytes % (Manual) 8.0 % (13.4-35.0) L 01/10/17 07:56 Reactive Lymphs % (Man) 0 % 01/10/17 07:56 Monocytes % (Manual) 0 % (0.0-7.3) 01/10/17 07:56 Eosinophils % (Manual) 0 % (0.0-4.3) 01/10/17 07:56 Metamyelocytes % 0 % 01/10/17 07:56 Myelocytes % 0 % 01/10/17 07:56 Promyelocytes % 0 % 01/10/17 07:56 Blast Cells % 0 % 01/10/17 07:56 Nucleated RBC % Not Reportable 01/10/17 07:56 Seg Neutrophils # 10.7 K/mm3 (1.8-7.7) H 01/13/17 08:13 Seg Neutrophils # Man 20.5 K/mm3 (1.8-7.7) H 01/10/17 07:56 Band Neutrophils # 0.0 K/mm3 01/10/17 07:56 Lymphocytes # (Manual) 1.8 K/mm3 (1.2-5.4) 01/10/17 07:56 Abs React Lymphs (Man) 0.0 K/mm3 01/10/17 07:56 Monocytes # (Manual) 0.0 K/mm3 (0.0-0.8) 01/10/17 07:56 Eosinophils # (Manual) 0.0 K/mm3 (0.0-0.4) 01/10/17 07:56 Basophils # (Manual) 0.0 K/mm3 (0.0-0.1) 01/10/17 07:56 Metamyelocytes # 0.0 K/mm3 01/10/17 07:56 Myelocytes # 0.0 K/mm3 01/10/17 07:56 Promyelocytes # 0.0 K/mm3 01/10/17 07:56 Blast Cells # 0.0 K/mm3 01/10/17 07:56 WBC Morphology Not Reportable 01/10/17 07:56 Hypersegmented Neuts Not Reportable 01/10/17 07:56 Hyposegmented Neuts Not Reportable 01/10/17 07:56 Hypogranular Neuts Not Reportable 01/10/17 07:56 Smudge Cells Not Reportable 01/10/17 07:56 Toxic Granulation Not Reportable 01/10/17 07:56 Toxic Vacuolation Not Reportable 01/10/17 07:56 Dohle Bodies Not Reportable 01/10/17 07:56 Pelger-Huet Anomaly Not Reportable 01/10/17 07:56 Lili Rods Not Reportable 01/10/17 07:56 Platelet Estimate Cons 01/10/17 07:56 Clumped Platelets Not Reportable 01/10/17 07:56 Plt Clumps, EDTA Not Reportable 01/10/17 07:56 Large Platelets Rare 01/10/17 07:56 Giant Platelets Not Reportable 01/10/17 07:56 Platelet Satelliting Not Reportable 01/10/17 07:56 Plt Morphology Comment Not Reportable 01/10/17 07:56 RBC Morphology Not Reportable 01/10/17 07:56 Dimorphic RBCs Not Reportable 01/10/17 07:56 Polychromasia Not Reportable 01/10/17 07:56 Hypochromasia 1+ 01/10/17 07:56 Poikilocytosis Not Reportable 01/10/17 07:56 Anisocytosis 1+ 01/10/17 07:56 Microcytosis Not Reportable 01/10/17 07:56 Macrocytosis Not Reportable 01/10/17 07:56 Spherocytes Not Reportable 01/10/17 07:56 Pappenheimer Bodies Not Reportable 01/10/17 07:56 Sickle Cells Not Reportable 01/10/17 07:56 Target Cells Not Reportable 01/10/17 07:56 Tear Drop Cells Not Reportable 01/10/17 07:56 Ovalocytes Not Reportable 01/10/17 07:56 Helmet Cells Not Reportable 01/10/17 07:56 Brown-Buell Bodies Not Reportable 01/10/17 07:56 Redford Rings Not Reportable 01/10/17 07:56 Madie Cells Not Reportable 01/10/17 07:56 Bite Cells Not Reportable 01/10/17 07:56 Crenated Cell Not Reportable 01/10/17 07:56 Elliptocytes Not Reportable 01/10/17 07:56 Acanthocytes (Spur) Not Reportable 01/10/17 07:56 Rouleaux Not Reportable 01/10/17 07:56 Hemoglobin C Crystals Not Reportable 01/10/17 07:56 Schistocytes Not Reportable 01/10/17 07:56 Malaria parasites Not Reportable 01/10/17 07:56 Bruce Bodies Not Reportable 01/10/17 07:56 Hem Pathologist Commnt No 01/10/17 07:56 POC ABG pH 7.474 (7.35-7.45) H 01/09/17 04:48 POC ABG pCO2 35.1 (35-45) 01/09/17 04:48 POC ABG pO2 66 (80-105) L 01/09/17 04:48 POC ABG HCO3 25.7 01/09/17 04:48 POC ABG Total CO2 27 01/09/17 04:48 POC ABG O2 Sat 94 01/09/17 04:48 POC ABG Base Excess 2 01/09/17 04:48 FiO2 21 % 01/09/17 04:48 Sodium 139 mmol/L (137-145) 01/13/17 08:13 Potassium 4.7 mmol/L (3.6-5.0) 01/13/17 08:13 Chloride 100.4 mmol/L (98-107) 01/13/17 08:13 Carbon Dioxide 28 mmol/L (22-30) 01/13/17 08:13 Anion Gap 15 mmol/L 01/13/17 08:13 BUN 18 mg/dL (7-17) H 01/13/17 08:13 Creatinine 0.7 mg/dL (0.7-1.2) 01/13/17 08:13 Estimated GFR > 60 ml/min 01/13/17 08:13 BUN/Creatinine Ratio 25.71 % 01/13/17 08:13 Glucose 164 mg/dL (65-100) H 01/13/17 08:13 Calcium 9.0 mg/dL (8.4-10.2) 01/13/17 08:13 Total Bilirubin 0.20 mg/dL (0.1-1.2) 01/13/17 08:13 AST 18 units/L (5-40) 01/13/17 08:13 ALT 27 units/L (7-56) 01/13/17 08:13 Alkaline Phosphatase 51 units/L (35-129) 01/13/17 08:13 Troponin T < 0.010 ng/mL (0.00-0.029) 01/12/17 17:00 Total Protein 6.8 g/dL (6.3-8.2) 01/13/17 08:13 Albumin 3.4 g/dL (3.9-5) L 01/13/17 08:13 Albumin/Globulin Ratio 1.0 % 01/13/17 08:13
--- NOTE | 2017-01-14 00:03 | Progress Note ---
Assessment and Plan This is 41 year old female morbidly obese has history of asthma , Sleep apnea,hypertension,CHF came to the emergency room with shortness of breath,chest tightness. Patient also complaining nasal congestion and sore throat. Denies fever.Patient smokes 1 pack x 1 week for 20 years . Counselled to stop smoking. Denies alcohol or drug abuse. 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 Allergic to Iodine and Shell fish.Patients chest xray reported normal. Patients ABGs PH 7. 47 PCO2 35 PO2 66 HCO3 26 O2 saturation 94% on room air.Patient is not using her CPAP at home for more than year. 01/13/17 Patient alert, awake.Breathing better today. O2 saturation 97% on 2 litres O2.Patients perfusion lung scan reported low probability for pulmonary emboli. - Patient Problems (1) Acute bronchitis Current Visit: Yes Status: Acute Qualifiers: Bronchitis organism: B Plan to address problem: Patient is on Zithromax and ceftrioxone. (2) Asthma exacerbation Current Visit: Yes Status: Acute Qualifiers: Asthma severity: A Plan to address problem: .O2 2 litres via nasal canula. BIPAP 16/6, rate 20, FiO2 28%. Albuterol/atrovent aerosol treatments q 6 hours. Continue I/V solumedral. Continue ceftrioxone and Zithramax. Continue S/C Lovenox. Recommend protonix. (3) Morbid obesity Current Visit: Yes Status: Chronic Plan to address problem: Nutritional consultation for weight reduction diet. Recommend to loose weight, (4) Sleep apnea Current Visit: Yes Status: Chronic Qualifiers: Sleep apnea type: S Plan to address problem: Patient is on BIPAP 16/6, rate 20, FIO2 28%. Subjective Date of service: 01/13/17 Interval history: Patient alert, awake.Breathing better today. O2 saturation 97% on 2 litres O2.Patients perfusion lung scan reported Low probability for pulmonary emboli. Objective Vital Signs - 12hr 01/13/17 01/13/17 01/13/17 12:00 14:18 14:19 Temperature Pulse Rate 69 Pulse Rate [ 98 H 97 H Anterior Bilateral Throughout] Pulse Rate [ Right Radial] Respiratory Rate Respiratory 18 19 Rate [Anterior Bilateral Throughout] Blood Pressure [Right Arm] O2 Sat by Pulse Oximetry 01/13/17 01/13/17 01/13/17 16:00 20:03 22:00 Temperature 97.3 F L 98.4 F Pulse Rate Pulse Rate [ Anterior Bilateral Throughout] Pulse Rate [ 92 H 91 H Right Radial] Respiratory 18 20 Rate Respiratory Rate [Anterior Bilateral Throughout] Blood Pressure 142/82 165/95 [Right Arm] O2 Sat by Pulse 96 96 97 Oximetry Constitutional: no acute distress, alert, appears uncomfortable Eyes: non-icteric ENT: oropharynx moist Neck: no JVD, JVD Ascultation: Bilateral: diminished breath sounds, rhonchi Cardiovascular: regular rate and rhythm Gastrointestinal: normoactive bowel sounds, soft, non-tender Integumentary: normal Extremities: no cyanosis, no edema, pink and warm Neurologic: normal mental status, non-focal exam, pupils equal and round, CN II- XII normal Psychiatric: anxious CBC and BMP: 01/13/17 08:13 01/13/17 08:13 ABG, PT/INR, D-dimer: ABG POC ABG pH 7.474 (7.35-7.45) H 01/09/17 04:48 POC ABG pCO2 35.1 (35-45) 01/09/17 04:48 POC ABG pO2 66 (80-105) L 01/09/17 04:48 POC ABG HCO3 25.7 01/09/17 04:48 POC ABG Total CO2 27 01/09/17 04:48 POC ABG O2 Sat 94 01/09/17 04:48 Abnormal lab findings: Abnormal Labs 01/09/17 01/10/17 01/10/17 Unknown 07:56 07:56 WBC 13.1 H 22.3 H RBC 5.04 H MCH 25 L 25 L RDW 16.4 H 17.2 H Lymph % (Auto) Eos # 0.5 H Seg Neutrophils % Lymphocytes % (Manual) 8.0 L Seg Neutrophils # 8.0 H Seg Neutrophils # Man 20.5 H BUN Creatinine 0.6 L Glucose 225 H Albumin 01/12/17 01/12/17 01/13/17 05:08 05:08 08:13 WBC 13.5 H 12.8 H RBC MCH 25 L 25 L RDW 16.4 H 16.4 H Lymph % (Auto) 11.5 L Eos # Seg Neutrophils % 83.8 H Lymphocytes % (Manual) Seg Neutrophils # 10.7 H Seg Neutrophils # Man BUN Creatinine 0.6 L Glucose 154 H Albumin 01/13/17 08:13 WBC RBC MCH RDW Lymph % (Auto) Eos # Seg Neutrophils % Lymphocytes % (Manual) Seg Neutrophils # Seg Neutrophils # Man BUN 18 H Creatinine Glucose 164 H Albumin 3.4 L Additional Studies: Perfusion lung scan reported low probability for pulmonary emboli.
[2017-01-14] MEDS: APRESOLINE IV PRN (01:39)
[2017-01-14] MEDS: AMBIEN PO PRN (01:39)
[2017-01-14] MEDS: DUONEB *Not for PRN Use IH SCH ×3 (01:51→13:47)
[2017-01-14 05:42] LABS: Hematocrit 37.3 % (30.3-42.9); Hemoglobin 11.6 gm/dl (10.1-14.3); Mean Corpuscular HGB Conc 31 % (30-34); Mean Corpuscular Volume 80 fl (79-97); Platelet Count 298 K/mm3 (140-440); Red Blood Count 4.64 M/mm3 (3.65-5.03); Red Cell Distribution Width 16.2 % (13.2-15.2); White Blood Count 14.5 K/mm3 (4.5-11.0)
[2017-01-14 05:46] LABS: Mean Corpuscular Hemoglobin 25 pg (28-32)
[2017-01-14] MEDS: TESSALON PERLES PO SCH ×2 (05:46→15:42)
[2017-01-14] MEDS: NORCO 5/325 PO PRN ×2 (05:47→10:45)
[2017-01-14 05:59] LABS: Anion Gap 16 mmol/L; Blood Urea Nitrogen 18 mg/dL (7-17); Calcium 8.7 mg/dL (8.4-10.2); Carbon Dioxide 28 mmol/L (22-30); Chloride 95.3 mmol/L (98-107); Glucose 175 mg/dL (65-100); Sodium 135 mmol/L (137-145)
[2017-01-14 06:45] LABS: Basophils % (Manual) 0 % (0.0-1.8); Blastocytes % (Manual) 0 %; Eosinophils % (Manual) 0 % (0.0-4.3)
[2017-01-14 06:46] LABS: Diff Status Complete; Platelet Estimate Consistent w Auto; RBC Morphology Normal
[2017-01-14] MEDS: ROCEPHIN/NS 1 GM/50 ML 1 GM/50 ML BAG IV SCH (10:34)
[2017-01-14] MEDS: MUCINEX ER PO SCH (10:34)
[2017-01-14] MEDS: LOVENOX SUB-Q SCH (10:35)
[2017-01-14] MEDS: HCTZ PO SCH (10:35)
[2017-01-14] MEDS: NORVASC PO SCH (10:36)
--- NOTE | 2017-01-14 10:42 | Progress Note ---
Subjective Date of service: 01/14/17 Interval history: Seen and examined at bedside; 24 hour events reviewed; nursing and respiratory care staff consulted; no adverse overnight events reported to me; Objective Vital Signs - 12hr 01/14/17 01/14/17 01/14/17 00:07 01:45 01:55 Temperature 98.2 F Pulse Rate Pulse Rate [ 96 H 91 H Anterior Bilateral Throughout] Pulse Rate [ 89 Right Radial] Respiratory 18 Rate Respiratory 18 22 Rate [Anterior Bilateral Throughout] Blood Pressure Blood Pressure 162/87 [Right Arm] O2 Sat by Pulse 98 Oximetry 01/14/17 01/14/17 01/14/17 01:59 04:15 09:48 Temperature 98.3 F 97.9 F Pulse Rate 100 H Pulse Rate [ Anterior Bilateral Throughout] Pulse Rate [ 84 98 H Right Radial] Respiratory 24 20 102 H Rate Respiratory Rate [Anterior Bilateral Throughout] Blood Pressure Blood Pressure 121/68 147/86 [Right Arm] O2 Sat by Pulse 97 98 Oximetry 01/14/17 10:36 Temperature Pulse Rate 98 H Pulse Rate [ Anterior Bilateral Throughout] Pulse Rate [ Right Radial] Respiratory Rate Respiratory Rate [Anterior Bilateral Throughout] Blood Pressure 147/86 Blood Pressure [Right Arm] O2 Sat by Pulse Oximetry Constitutional: no acute distress, alert, appears uncomfortable Eyes: non-icteric ENT: oropharynx moist Neck: no JVD, JVD Ascultation: Bilateral: diminished breath sounds, rhonchi Cardiovascular: regular rate and rhythm Gastrointestinal: normoactive bowel sounds, soft, non-tender Integumentary: normal Extremities: no cyanosis, no edema, pink and warm Neurologic: normal mental status, non-focal exam, pupils equal and round, CN II- XII normal Psychiatric: anxious CBC and BMP: 01/14/17 04:45 01/14/17 04:45 ABG, PT/INR, D-dimer: ABG POC ABG pH 7.474 (7.35-7.45) H 01/09/17 04:48 POC ABG pCO2 35.1 (35-45) 01/09/17 04:48 POC ABG pO2 66 (80-105) L 01/09/17 04:48 POC ABG HCO3 25.7 01/09/17 04:48 POC ABG Total CO2 27 01/09/17 04:48 POC ABG O2 Sat 94 01/09/17 04:48 Abnormal lab findings: Abnormal Labs 01/09/17 01/10/17 01/10/17 Unknown 07:56 07:56 WBC 13.1 H 22.3 H RBC 5.04 H MCH 25 L 25 L RDW 16.4 H 17.2 H Lymph % (Auto) Eos # 0.5 H Seg Neutrophils % Seg Neuts % (Manual) Lymphocytes % (Manual) 8.0 L Seg Neutrophils # 8.0 H Seg Neutrophils # Man 20.5 H Sodium Chloride BUN Creatinine 0.6 L Glucose 225 H Albumin 01/12/17 01/12/17 01/13/17 05:08 05:08 08:13 WBC 13.5 H 12.8 H RBC MCH 25 L 25 L RDW 16.4 H 16.4 H Lymph % (Auto) 11.5 L Eos # Seg Neutrophils % 83.8 H Seg Neuts % (Manual) Lymphocytes % (Manual) Seg Neutrophils # 10.7 H Seg Neutrophils # Man Sodium Chloride BUN Creatinine 0.6 L Glucose 154 H Albumin 01/13/17 01/14/17 01/14/17 08:13 04:45 04:45 WBC 14.5 H RBC MCH 25 L RDW 16.2 H Lymph % (Auto) Eos # Seg Neutrophils % Seg Neuts % (Manual) 79.0 H Lymphocytes % (Manual) 11.0 L Seg Neutrophils # Seg Neutrophils # Man 11.5 H Sodium 135 L Chloride 95.3 L BUN 18 H 18 H Creatinine 0.6 L Glucose 164 H 175 H Albumin 3.4 L
[2017-01-14] MEDS: ZITHROMAX 500 MG in NACL 0.9% 250ML 250 ML IV SCH (11:00)
--- NOTE | 2017-01-14 11:01 | XRay Report ---
AP CHEST: HISTORY: Short of breath AP view of the chest demonstrates a normal mediastinal and cardiac contour with clear lungs and normal bony and soft tissue structures. IMPRESSION: Unremarkable AP chest.
[2017-01-14] MEDS ORDERED: NORVASC PO SCH (11:57)
--- NOTE | 2017-01-14 11:58 | Progress Note ---
Assessment and Plan Assessment: Acute bronchitis Asthma exacerbation HTN H/o "congestive heart failure" after the of her child 5 years ago JUDSON - noncompliant with PM CPAP Morbid obesity H/o ? lupus - BRYNN titer pending Tobacco use - cessation encouraged Plan: CXR with NAF. V/Q low probability for PE. Echo reviewed - EF 55-60%, mild LVH, LA mildly dilated, mild to moderate MR, mild TR. EKG reviewed with NAF. Increase norvasc to 10mg daily, cont HCTZ. Currently stable cardiac status. Will see PRN. Recommend follow up in our office with Maribel Patel NP, within 2 weeks of hospital discharge ([phone]). Assessment and plan reviewed with pt at bedside. The patient has been seen in conjunction with Dr. Skelton who agrees with the assessment and plan of care. Subjective Date of service: 01/14/17 Principal diagnosis: asthma exacerbation Interval history: pt still c/o SOB. VSS. Tele reviewed with no arrhythmias. Objective Last Vital Signs Temp 97.9 F 01/14/17 09:48 Pulse 98 H 01/14/17 10:36 Resp 102 H 01/14/17 09:48 BP 147/86 01/14/17 10:36 Pulse Ox 98 01/14/17 09:48 - Physical Examination HEENT: Positive: PERRL, Normocephaly, Mucus Membranes Moist Neck: Positive: neck supple, trachea midline Cardiac: Positive: Reg Rate and Rhythm, S1/S2 Lungs: Positive: Decreased Breath Sounds, Wheezes Neuro: Positive: Grossly Intact, Cranial Nerve 2-12 Intact Abdomen: Positive: Unremarkable, Soft, Active Bowel Sounds. Negative: Tender Skin: Positive: Clear. Negative: Rash, Wound Musculoskeletal: No Fluid Collection, No Pain, Normal Range of Motion Extremities: Absent: edema - Labs and Meds CBC 01/14/17 Range/Units 04:45 WBC 14.5 H (4.5-11.0) K/mm3 RBC 4.64 (3.65-5.03) M/mm3 Hgb 11.6 (10.1-14.3) gm/dl Hct 37.3 (30.3-42.9) % Plt Count 298 (140-440) K/mm3 Comprehensive Metabolic Panel 01/14/17 Range/Units 04:45 Sodium 135 L (137-145) mmol/L Potassium 4.0 (3.6-5.0) mmol/L Chloride 95.3 L (98-107) mmol/L Carbon Dioxide 28 (22-30) mmol/L BUN 18 H (7-17) mg/dL Creatinine 0.6 L (0.7-1.2) mg/dL Glucose 175 H (65-100) mg/dL Calcium 8.7 (8.4-10.2) mg/dL - Imaging and Cardiology EKG: report reviewed, image reviewed Echo: report reviewed, image reviewed - Telemetry EKG Rhythm: Sinus Rhythm
[2017-01-14 16:48] LABS: ISTAT Base Excess 10; ISTAT DEVICE 0; ISTAT HCO3 32.2; ISTAT PCO2 37.2 (35-45); ISTAT PH 7.546 (7.35-7.45); ISTAT PO2 112 (80-105); ISTAT SO2 99; ISTAT TCO2 33
--- NOTE | 2017-01-14 17:03 | Discharge Summary ---
Providers - Providers Date of Admission: 01/09/17 05:57 Date of discharge: 01/14/17 Attending physician: CARL LIZARRAGA MD 01/09/17 10:33 Consult to Physician [CONS] Routine Consulting Provider: MEHDI ARREOLA Reason For Exam: respiratory failure on bipap, pt known to you Place consult to:: Jessika GORDILLO Notified:: a service Phone number called:: [phone] Was contact made?: Yes Time called:: 11:37 01/12/17 16:53 Consult to Physician [CONS] Routine Consulting Provider: CLEMENT STARKS Reason For Exam: SOB on exertion Place consult to:: Office Notified:: yes Phone number called:: [phone] Was contact made?: Yes If yes, spoke with:: answering service Time called:: 17:37 Primary care physician: [employer] Hospitalization Reason for admission: Copd/Asthma exacerbation Condition: Stable Pertinent studies: VQ scan low probability for PE Echo normal ejection fraction, no diastolic dysfunction Hospital course: 41-year-old woman with a history of hypertension,CHF, sleep apnea, morbid obesity, asthma comes emergency room with complaints of shortness of breath at started this morning, wheezing and cough that is non- productive. Patient had a sinus infection, was given antibiotic but was unable to get the prescription filled. Patient noncompliant with CPAP machine. Patient was admitted to the floor and was started treatment for COPD/asthma exacerbation, pulmonary was consulted and improved implemented. Patient was evaluated for home O2 but couldn't quantify. Patient has shortness of breath when she is walking around but her O2 saturation was around 96% on room air. Consult cardiology and cardiac enzymes were negative, EKG normal sinus rhythm, echoCHF. Cardiology recommended to control her blood pressure. Pulmonary, Dr Arreola recommended to discharge her and have follow-up with him as an out patient in 2weeks. Patient to discharged with tappering dose of steroids, nebulizer treatments and antibiotics. Patient was hemodynamically stable at the time of discharge. Patient's medications were reviewed and refilled at the time of discharge. Patient's questions and concerns were addressed at the bedside. Patient is advised to wear her CPAP at night. She is advised also to stop smoking and lose weight. Disposition: DC-01 TO HOME OR SELFCARE Time spent for discharge: 31 minutes - Discharge Diagnoses (1) Acute asthmatic bronchitis Status: Acute (2) Asthma exacerbation Status: Acute Qualifiers: Asthma severity: A (3) Morbid obesity Status: Chronic (4) Acute respiratory distress Status: Acute (5) Chest pain Status: Acute Qualifiers: Chest pain type: C Ischemic chest pain type: I Core Measure Documentation - Palliative Care Palliative Care/ Comfort Measures: Not Applicable - Core Measures Any of the following diagnoses?: none Exam - Physical Exam Narrative exam: Not in cardiopulmonary distress. The patient is morbidly obese. Vital signs as documented. Head exam is unremarkable. No scleral icterus . Neck is without jugular venous distension, thyromegaly, or carotid bruits. Lungs wheezing all over the chest. Cardiac exam reveals regular rate and Rhythm. First and second heart sounds normal. No murmurs, rubs or gallops. Abdominal exam reveals normal bowel sounds, no masses, no organomegaly and no aortic enlargement. Extremities are nonedematous and both femoral and pedal pulses are normal. 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 - Constitutional Vitals: Temp Pulse Resp BP Pulse Ox 97.8 F 91 H 20 133/75 98 01/14/17 13:00 01/14/17 13:00 01/14/17 13:00 01/14/17 13:00 01/14/17 13:00 Plan Activity: no restrictions Weight Bearing Status: Weight Bear as Tolerated Diet: low fat, low cholesterol, low salt Follow up with: PRIMARY MD TREMAYNE [Primary Care Provider] - 7 Days MEHDI ARREOLA MD [Staff Physician] - 7 Days KATERINA GARCIA NP [Advanced Practice Nurse] - 14 Days Forms: AMA Form Prescriptions: ALBUTEROL Inhaler [ProAir HFA Inhaler] 2 puff IH QID PRN #1 inhalation PRN Reason: Shortness Of Breath amLODIPine [Norvasc] 10 mg PO DAILY #90 tab Azithromycin [Zithromax TAB] 500 mg PO QDAY #5 tablet Cetirizine HCl [ZyrTEC] 10 mg PO PRN #30 capsule Furosemide [Lasix TAB] 20 mg PO QDAY #30 tablet guaiFENesin ER [Mucinex ER] 600 mg PO BID #10 tablet Hydrochlorothiazide [HCTZ] 25 mg PO QDAY #30 tablet HYDROcodone/APAP 5-325 [[place] 5-325 mg TAB] 1 each PO Q4H PRN #12 tablet PRN Reason: Pain, Moderate (4-6) Ipratropium/Albuterol Sulfate [DUONEB *Not for PRN Use*] 1 ampul IH Q6HRT #30 ampul.neb Naproxen [Naprosyn TAB] 500 mg PO BID #20 tablet Prednisone [predniSONE 5 mg (6-Day Pack, 21 Tabs)] 5 mg PO .TAPER #1 tab.ds.pk
[2017-01-14 17:16] VITALS: BP 143/69
[2017-01-15] MEDS ORDERED: ZITHROMAX PO SCH (10:00)
== END 2017-01-14 19:00 | disposition home or self-care (01) | DRG 871 ==
LOC: ED 01:48 → 4A 05:57
PROVIDERS: ADMIT Internal Medicine; ATTEND Internal Medicine
PROC: 5A09357 Assistance with Respiratory Ventilation, Less than 24 Consecutive Hours, Continuous Positive Airway Pressure (ICD-10-PCS; principal; 2017-01-09)
PROC: 4A033R1 Measurement of Arterial Saturation, Peripheral, Percutaneous Approach (ICD-10-PCS; 2017-01-09)
DX: A41.9 Sepsis, unspecified organism (principal); J96.01 Acute respiratory failure with hypoxia; J45.901 Unspecified asthma with (acute) exacerbation; Z68.43 Body mass index [BMI] 50.0-59.9, adult; J44.1 Chronic obstructive pulmonary disease with (acute) exacerbation; F17.210 Nicotine dependence, cigarettes, uncomplicated; J20.9 Acute bronchitis, unspecified; E66.01 Morbid (severe) obesity due to excess calories; G47.33 Obstructive sleep apnea (adult) (pediatric); G89.4 Chronic pain syndrome; M19.90 Unspecified osteoarthritis, unspecified site; I11.0 Hypertensive heart disease with heart failure; J02.9 Acute pharyngitis, unspecified; I50.9 Heart failure, unspecified; Z88.8 Allergy status to other drugs, medicaments and biological substances; Z91.013 Allergy to seafood; Z82.49 Family history of ischemic heart disease and other diseases of the circulatory system; Z71.6 Tobacco abuse counseling; Z91.19 Patient's noncompliance with other medical treatment and regimen; Z71.3 Dietary counseling and surveillance
CPT/HCPCS: 36415; 36600; 71010; 78582; 80048; 80053; 82803; 84484; 85007; 85025; 85027; 86038; 87040; 87116; 87430; 93005; 93010; 93306; 94640; 94660; 94760; 96365; 96367; 96375; A9540; A9558; J0360; J0456; J0696; J1650; J2930; J3475; J7050

== ENCOUNTER 2017-01-15 17:16 | Emergency (ER) | payer SELFPAY ==
[2017-01-15] MEDS ORDERED: NACL 0.9% 1000 ML 1,000 ML ONE (18:03)
[2017-01-15] MEDS ORDERED: ATROVENT IH ONE (18:24)
[2017-01-15] MEDS ORDERED: PROAIR IH ONE (18:24)
[2017-01-15] MEDS ORDERED: MAGNESIUM SULFATE 2GM/50ML 2 GM/50 ML BAG IV ONE (18:24)
[2017-01-15] MEDS ORDERED: TORADOL IV ONE (18:25)
--- NOTE | 2017-01-15 18:27 | Emergency Department Report ---
ED General Adult HPI - General Chief complaint: Dyspnea/Respdistress Stated complaint: DIANNA Time Seen by Provider: 01/15/17 18:13 Source: patient, RN notes reviewed, old records reviewed Mode of arrival: Stretcher Limitations: No Limitations - History of Present Illness Initial comments: This is a 41-year-old female. She is previously unknown to me. Past medical history includes obesity, asthma, possible congestive heart failure , recently admitted to the hospital for asthma exacerbation, known to be noncompliant with at night CPAP, morbid obesity. Patient recently admitted to the hospital for asthma exacerbation, had an echocardiogram that demonstrated an EF of 55-60%, had a low probability nuclear medicine study, was cleared by cardiology yesterday. The patient presents to the ER today complaining of central chest pain, it is described as "shooting star" that radiates across her chest. It does not radiate to the back, arms or neck. There is no vomiting or diaphoresis. There is no leg pain. There is no leg swelling. Patient also reports cough, wheezing and shortness of breath. Her cough and wheezing have been constant. The patient denies hematemesis and bright red blood per rectum. The patient reports her pain started at approximately 1:00 in the afternoon. It has been constant. -: Gradual Location: chest Radiation: non-radiation Quality: aching Consistency: constant Improves with: rest Worsens with: movement Associated Symptoms: chest pain, cough, shortness of breath - Related Data Previous Rx's Medication Instructions Recorded Last Taken Type Albuterol Sulfate [Proventil HFA] 1 - 2 puff IH Q4H PRN #1 hfa.aer.ad 09/24/14 01/08/17 Rx ALBUTEROL Inhaler [ProAir HFA 2 puff IH QID PRN #1 inhalation 01/14/17 Unknown Rx Inhaler] Azithromycin [Zithromax TAB] 500 mg PO QDAY #5 tablet 01/14/17 Unknown Rx Cetirizine HCl [ZyrTEC] 10 mg PO PRN #30 capsule 01/14/17 Unknown Rx Furosemide [Lasix TAB] 20 mg PO QDAY #30 tablet 01/14/17 Unknown Rx HYDROcodone/APAP 5-325 [[place] 1 each PO Q4H PRN #12 tablet 01/14/17 Unknown Rx 5-325 mg TAB] Hydrochlorothiazide [HCTZ] 25 mg PO QDAY #30 tablet 01/14/17 Unknown Rx Ipratropium/Albuterol Sulfate 1 ampul IH Q6HRT #30 ampul.neb 01/14/17 Unknown Rx [DUONEB *Not for PRN Use*] Naproxen [Naprosyn TAB] 500 mg PO BID #20 tablet 01/14/17 Unknown Rx Prednisone [predniSONE 5 mg (6-Day 5 mg PO .TAPER #1 tab.ds.pk 01/14/17 Unknown Rx Pack, 21 Tabs)] amLODIPine [Norvasc] 10 mg PO DAILY #90 tab 01/14/17 Unknown Rx guaiFENesin ER [Mucinex ER] 600 mg PO BID #10 tablet 01/14/17 Unknown Rx Albuterol Sulfate [Albuterol 0.63% 0.63 mg IH Q4HR PRN #2 ml 01/15/17 Unknown Rx NEBS] Albuterol Sulfate [Proair 90 mcg IH Q4HR PRN #2 aer.pow.ba 01/15/17 Unknown Rx Respiclick] HYDROcodone/APAP 5-325 [[place] 1 each PO Q4-6H PRN #15 tablet 01/15/17 Unknown Rx 5-325 mg TAB] Ipratropium [place] [Atrovent Hfa] 12.9 gm IH Q4HR #2 hfa.aer.ad 01/15/17 Unknown Rx Ipratropium [Atrovent NEB] 0.5 mg IH Q4HR #2 ml 01/15/17 Unknown Rx Allergies Allergy/AdvReac Type Severity Reaction Status Date / Time iodine Allergy Rash Verified 06/09/15 01:19 shellfish derived Allergy Rash Verified 06/09/15 01:19 ED Review of Systems ROS: Stated complaint: DIANNA Other details as noted in HPI Constitutional: denies: malaise Eyes: denies: vision change ENT: denies: epistaxis Respiratory: shortness of breath, wheezing Cardiovascular: chest pain Gastrointestinal: denies: nausea, vomiting Genitourinary: as per HPI Musculoskeletal: denies: arthralgia, myalgia Skin: denies: lesions Neurological: denies: weakness Psychiatric: anxiety ED Past Medical Hx - Past Medical History Previous Medical History?: Yes Hx Hypertension: Yes Hx Congestive Heart Failure: Yes ( cardiomyopathy) Hx Diabetes: No Hx Arthritis: Yes Hx Asthma: Yes Hx COPD: Yes Hx HIV: No Additional medical history: sleep apnea - Surgical History Past Surgical History?: Yes Additional Surgical History: x 3, orthopedic (arch replacement) - Social History Smoking Status: Never Smoker Substance Use Type: None - Medications Home Medications: Home Medications Medication Instructions Recorded Confirmed Last Taken Type Albuterol Sulfate [Proventil HFA] 1 - 2 puff IH Q4H PRN #1 hfa.aer.ad 09/24/14 01/09/17 01/08/17 Rx ALBUTEROL Inhaler [ProAir HFA 2 puff IH QID PRN #1 inhalation 01/14/17 Unknown Rx Inhaler] Azithromycin [Zithromax TAB] 500 mg PO QDAY #5 tablet 01/14/17 Unknown Rx Cetirizine HCl [ZyrTEC] 10 mg PO PRN #30 capsule 01/14/17 Unknown Rx Furosemide [Lasix TAB] 20 mg PO QDAY #30 tablet 01/14/17 Unknown Rx HYDROcodone/APAP 5-325 [[place] 1 each PO Q4H PRN #12 tablet 01/14/17 Unknown Rx 5-325 mg TAB] Hydrochlorothiazide [HCTZ] 25 mg PO QDAY #30 tablet 01/14/17 Unknown Rx Ipratropium/Albuterol Sulfate 1 ampul IH Q6HRT #30 ampul.neb 01/14/17 Unknown Rx [DUONEB *Not for PRN Use*] Naproxen [Naprosyn TAB] 500 mg PO BID #20 tablet 01/14/17 Unknown Rx Prednisone [predniSONE 5 mg (6-Day 5 mg PO .TAPER #1 tab.ds.pk 01/14/17 Unknown Rx Pack, 21 Tabs)] amLODIPine [Norvasc] 10 mg PO DAILY #90 tab 01/14/17 Unknown Rx guaiFENesin ER [Mucinex ER] 600 mg PO BID #10 tablet 01/14/17 Unknown Rx Albuterol Sulfate [Albuterol 0.63% 0.63 mg IH Q4HR PRN #2 ml 01/15/17 Unknown Rx NEBS] Albuterol Sulfate [Proair 90 mcg IH Q4HR PRN #2 aer.pow.ba 01/15/17 Unknown Rx Respiclick] HYDROcodone/APAP 5-325 [[place] 1 each PO Q4-6H PRN #15 tablet 01/15/17 Unknown Rx 5-325 mg TAB] Ipratropium [place] [Atrovent Hfa] 12.9 gm IH Q4HR #2 hfa.aer.ad 01/15/17 Unknown Rx Ipratropium [Atrovent NEB] 0.5 mg IH Q4HR #2 ml 01/15/17 Unknown Rx ED Physical Exam - General Limitations: No Limitations General appearance: alert, in no apparent distress, obese - Head Head exam: Present: atraumatic, normocephalic - Eye Eye exam: Present: normal appearance - ENT ENT exam: Present: normal exam, normal orophraynx, mucous membranes moist, normal external ear exam - Neck Neck exam: Present: normal inspection, full ROM. Absent: tenderness, meningismus - Respiratory Respiratory exam: Present: wheezes, rhonchi, chest wall tenderness. Absent: respiratory distress, rales, stridor - Cardiovascular Cardiovascular Exam: Present: regular rate, normal rhythm, normal heart sounds. Absent: bradycardia, tachycardia, irregular rhythm, systolic murmur, diastolic murmur, rubs, gallop - GI/Abdominal GI/Abdominal exam: Present: soft, normal bowel sounds. Absent: distended, tenderness, guarding, rebound, rigid, pulsatile mass - Extremities Exam Extremities exam: Present: normal inspection, full ROM, normal capillary refill. Absent: pedal edema, joint swelling, calf tenderness - Back Exam Back exam: Present: normal inspection, full ROM. Absent: tenderness, CVA tenderness (R), CVA tenderness (L), muscle spasm, paraspinal tenderness, vertebral tenderness - Neurological Exam Neurological exam: Present: alert, oriented X3, normal gait, other (Extraocular movements intact. Tongue midline. No facial droop. Facial sensation intact to light touch in the V1, V2, V3 distribution bilaterally. 5 and 5 strength in 4 extremities.. Sensation is intact to light touch in 4 extremities.). Absent : motor sensory deficit - Psychiatric Psychiatric exam: Present: normal affect, normal mood - Skin Skin exam: Present: warm, dry, intact, normal color. Absent: rash ED Course Vital Signs 01/15/17 01/15/17 01/15/17 17:36 17:41 17:47 Temperature 98.7 F Pulse Rate 86 Pulse Rate [ Right Middle Lobe] Respiratory 24 Rate Respiratory Rate [Right Middle Lobe] Blood Pressure 137/77 137/77 O2 Sat by Pulse 99 97 95 Oximetry 01/15/17 01/15/17 01/15/17 18:00 18:44 19:01 Temperature Pulse Rate Pulse Rate [ 84 Right Middle Lobe] Respiratory Rate Respiratory 18 Rate [Right Middle Lobe] Blood Pressure 125/74 125/74 O2 Sat by Pulse 95 99 Oximetry 01/15/17 01/15/17 01/15/17 19:31 20:01 20:31 Temperature Pulse Rate Pulse Rate [ Right Middle Lobe] Respiratory Rate Respiratory Rate [Right Middle Lobe] Blood Pressure 125/74 127/63 127/63 O2 Sat by Pulse 99 95 95 Oximetry 01/15/17 01/15/17 01/15/17 21:13 21:31 21:45 Temperature Pulse Rate Pulse Rate [ 72 Right Middle Lobe] Respiratory Rate Respiratory 14 Rate [Right Middle Lobe] Blood Pressure 127/63 O2 Sat by Pulse 97 93 Oximetry 01/15/17 01/15/17 01/15/17 21:53 22:01 22:05 Temperature Pulse Rate Pulse Rate [ 85 Right Middle Lobe] Respiratory 18 Rate Respiratory 15 Rate [Right Middle Lobe] Blood Pressure 145/68 O2 Sat by Pulse 94 Oximetry - Reevaluation(s) Reevaluation #1: 01/15/17 19:59 differential diagnosis: Asthma, bronchitis, costochondritis, acute coronary syndrome, pneumonia Assessment and plan: 41-year-old female with chest pain, wheezing. Leukocytosis is appreciated, the patient is currently on a steroid burst. She is afebrile with reassuring vital signs, recently had a negative VQ scan, and is low risk by well's criteria clinically and is perc negative. Low risk by SEVERO score, low risk by heart score, EKG morphologically unremarkable 2, and unchanged from prior, patient is at low risk for major adverse cardiac event, initial troponin negative, repeat troponin is pending. Patient cleared by cardiology yesterday. Given her recent extensive workup, I don't believe she requires admission for ACS risk stratification, she will be treated empirically with albuterol, Atrovent, steroids and magnesium. 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 Care is transferred to the oncoming physician, Dr. Paul, who will follow-up on the patient's repeat troponin, to be drawn at 9:00, and her x- ray of the chest. ED Medical Decision Making - Lab Data Result diagrams: 01/15/17 18:55 01/15/17 18:55 Vital Signs 01/15/17 01/15/17 01/15/17 17:36 17:41 17:47 Temperature 98.7 F Pulse Rate 86 Pulse Rate [ Right Middle Lobe] Respiratory 24 Rate Respiratory Rate [Right Middle Lobe] Blood Pressure 137/77 137/77 O2 Sat by Pulse 99 97 95 Oximetry 01/15/17 01/15/17 01/15/17 18:00 18:44 19:01 Temperature Pulse Rate Pulse Rate [ 84 Right Middle Lobe] Respiratory Rate Respiratory 18 Rate [Right Middle Lobe] Blood Pressure 125/74 125/74 O2 Sat by Pulse 95 99 Oximetry Lab Results 01/15/17 01/15/17 01/15/17 Range/Units 18:55 18:55 18:55 WBC 18.7 H (4.5-11.0) K/mm3 RBC 5.07 H (3.65-5.03) M/mm3 Hgb 12.7 (10.1-14.3) gm/dl Hct 39.9 (30.3-42.9) % MCV 79 (79-97) fl MCH 25 L (28-32) pg MCHC 32 (30-34) % RDW 16.0 H (13.2-15.2) % Plt Count 325 (140-440) K/mm3 PT 12.4 (12.2-14.9) Sec. INR 0.93 (0.87-1.13) Sodium 138 (137-145) mmol/L Potassium 3.9 (3.6-5.0) mmol/L Chloride 94.0 L (98-107) mmol/L Carbon Dioxide 31 H (22-30) mmol/L Anion Gap 17 mmol/L BUN 27 H (7-17) mg/dL Creatinine 0.7 (0.7-1.2) mg/dL Estimated GFR > 60 ml/min BUN/Creatinine Ratio 38.57 % Glucose 113 H (65-100) mg/dL Calcium 9.1 (8.4-10.2) mg/dL Troponin T < 0.010 (0.00-0.029) ng/mL HCG, Quant (0-4) mIU/mL 01/15/17 Range/Units 18:55 WBC (4.5-11.0) K/mm3 RBC (3.65-5.03) M/mm3 Hgb (10.1-14.3) gm/dl Hct (30.3-42.9) % MCV (79-97) fl MCH (28-32) pg MCHC (30-34) % RDW (13.2-15.2) % Plt Count (140-440) K/mm3 PT (12.2-14.9) Sec. INR (0.87-1.13) Sodium (137-145) mmol/L Potassium (3.6-5.0) mmol/L Chloride (98-107) mmol/L Carbon Dioxide (22-30) mmol/L Anion Gap mmol/L BUN (7-17) mg/dL Creatinine (0.7-1.2) mg/dL Estimated GFR ml/min BUN/Creatinine Ratio % Glucose (65-100) mg/dL Calcium (8.4-10.2) mg/dL Troponin T (0.00-0.029) ng/mL HCG, Quant < 2 (0-4) mIU/mL - EKG Data -: EKG Interpreted by Me EKG shows normal: sinus rhythm, axis, intervals, QRS complexes, ST-T waves Rate: normal - EKG Data When compared to previous EKG there are: no significant change Interpretation: no acute changes, normal EKG 01/15/17 20:01 EKG #1 demonstrates normal sinus, 85 bpm, normal intervals, normal axis, motion artifact, not morphologically consistent with STEMI. EKG #2 demonstrates normal sinus, 91 bpm, normal intervals, normal axis, not morphologically consistent with STEMI. Both EKGs appear to be unchanged from prior EKG from January 2017. - Radiology Data Radiology results: pending, image reviewed interpreted by me: X-ray of the chest is negative for acute disease Critical care attestation.: If time is entered above; I have spent that time in minutes in the direct care of this critically ill patient, excluding procedure time. ED Disposition Clinical Impression: Asthma exacerbation, Chest pain Disposition: DC-01 TO HOME OR SELFCARE Is pt being admited?: No Does the pt Need Aspirin: No Condition: Good Instructions: Chest Pain (ED), Asthma (ED), Costochondritis (ED) Additional Instructions: Continue current outpatient medications. Continue steroid taper. Use albuterol and Atrovent as directed. Follow up with cardiology, within the next week and a half. Contact [phone] to follow-up with Maribel Patel. Return to the ER right away with new pain, worsening pain, migration of pain, fevers, chills, worsening chest pain, worsening shortness of breath, confusion, intractable nausea or vomiting, inability to tolerate liquid feeds. Prescriptions: Albuterol Sulfate [Albuterol 0.63% NEBS] 0.63 mg IH Q4HR PRN #2 ml PRN Reason: Wheezing Albuterol Sulfate [Proair Respiclick] 90 mcg IH Q4HR PRN #2 aer.pow.ba PRN Reason: Wheezing HYDROcodone/APAP 5-325 [[place] 5-325 mg TAB] 1 each PO Q4-6H PRN #15 tablet PRN Reason: Pain Ipratropium [Atrovent NEB] 0.5 mg IH Q4HR #2 ml Ipratropium [place] [Atrovent Hfa] 12.9 gm IH Q4HR #2 hfa.aer.ad Referrals: PRIMARY CARE, [Primary Care Provider] - 3-5 Days BO AGUIAR MD [Staff Physician] - 3-5 Days CALLIE KAM MD [Staff Physician] - 3-5 Days
[2017-01-15] MEDS ORDERED: PROVENTIL IH PRN (18:29)
[2017-01-15] MEDS ORDERED: PROVENTIL IH ONE ×2 (18:40→21:32)
[2017-01-15 19:32] LABS: Hematocrit 39.9 % (30.3-42.9); Hemoglobin 12.7 gm/dl (10.1-14.3); Mean Corpuscular HGB Conc 32 % (30-34); Mean Corpuscular Volume 79 fl (79-97); Platelet Count 325 K/mm3 (140-440); Red Blood Count 5.07 M/mm3 (3.65-5.03); White Blood Count 18.7 K/mm3 (4.5-11.0)
[2017-01-15 19:37] LABS: Mean Corpuscular Hemoglobin 25 pg (28-32)
[2017-01-15 19:41] LABS: INR 0.93 (0.87-1.13)
[2017-01-15 19:46] LABS: Anion Gap 17 mmol/L; BUN/Creatinine Ratio 38.57; Blood Urea Nitrogen 27 mg/dL (7-17); Calcium 9.1 mg/dL (8.4-10.2); Carbon Dioxide 31 mmol/L (22-30); Glucose 113 mg/dL (65-100); Potassium 3.9 mmol/L (3.6-5.0); Sodium 138 mmol/L (137-145)
[2017-01-15 20:24] LABS: Blastocytes % (Manual) 0 %
[2017-01-15 20:25] LABS: Basophils % (Manual) 0 % (0.0-1.8); Eosinophils % (Manual) 0 % (0.0-4.3)
[2017-01-15 20:26] LABS: Platelet Estimate Consistent w Auto
[2017-01-15 20:28] LABS: Anisocytosis 1+; Diff Status Complete; Hypochromasia 2+; Large Platelets 1+; Poikilocytosis 1+
[2017-01-15] MEDS ORDERED: NORCO 5/325 PO ONE (21:32)
[2017-01-15 22:41] VITALS: BP 145/68
--- NOTE | 2017-01-16 09:37 | XRay Report ---
Single view chest: Compared to 01/14/17. History: Dyspnea. Findings: Normal cardiomediastinal silhouette. Trachea is midline. No consolidation, pneumothorax or pleural effusion. Impression: No acute cardiopulmonary findings..
== END 2017-01-15 22:43 | disposition home or self-care (01) ==
LOC: ED 17:16
DX: J45.901 Unspecified asthma with (acute) exacerbation (principal); R07.9 Chest pain, unspecified; I10 Essential (primary) hypertension; I50.9 Heart failure, unspecified; M19.90 Unspecified osteoarthritis, unspecified site; J44.9 Chronic obstructive pulmonary disease, unspecified; Z91.013 Allergy to seafood; Z91.02 Food additives allergy status
CPT/HCPCS: 36415; 71010; 80048; 84484; 84702; 85007; 85025; 85610; 93005; 93010; 94640; 96365; 96375; 99285; J1885; J2930; J3475; J7030

== ENCOUNTER 2017-03-07 18:39 | Emergency (ER) | payer SELFPAY ==
[2017-03-07 19:20] LABS: Basophils % (Auto) 1.2 % (0.0-1.8); Eosinophils % (Auto) 4.2 % (0.0-4.3); Hematocrit 40.8 % (30.3-42.9); Hemoglobin 12.7 gm/dl (10.1-14.3); Mean Corpuscular HGB Conc 31 % (30-34); Mean Corpuscular Volume 82 fl (79-97); Platelet Count 310 K/mm3 (140-440); Red Blood Count 4.98 M/mm3 (3.65-5.03); Red Cell Distribution Width 16.2 % (13.2-15.2); White Blood Count 10.2 K/mm3 (4.5-11.0)
[2017-03-07 19:25] LABS: Mean Corpuscular Hemoglobin 26 pg (28-32)
[2017-03-07 19:36] LABS: Anion Gap 19 mmol/L; Blood Urea Nitrogen 12 mg/dL (7-17); Calcium 9.5 mg/dL (8.4-10.2); Carbon Dioxide 25 mmol/L (22-30); Chloride 100.2 mmol/L (98-107); Glucose 102 mg/dL (65-100); Potassium 4.2 mmol/L (3.6-5.0); Sodium 140 mmol/L (137-145)
[2017-03-07 19:54] LABS: Bacteria,Urine 1+ /HPF (Negative); Bilirubin,Urine NEG (Negative); Blood,Urine NEG (Negative); Ketones,Urine NEG (Negative); Leukocyte Esterase,Urine NEG (Negative); Mucus,Urine FEW /HPF; Nitrite,Urine NEG (Negative); Protein,Urine <15 mg/dL mg/dL (Negative); Urobilinogen,Urine < 2.0 mg/dL (<2.0)
--- NOTE | 2017-03-07 21:56 | XRay Report ---
FINAL REPORT PROCEDURE: XR CHEST ROUTINE 2V TECHNIQUE: PA and lateral chest radiographs were obtained. CPT 99228 HISTORY: Shortness of breath COMPARISON: No prior studies are available for comparison. FINDINGS: Heart: Normal. Mediastinum/Vessels: Normal. Lungs/Pleural space: Lungs are hyperexpanded. No focal infiltrate.. Bony thorax: No acute osseous abnormality. Degenerative change of the spine Other: IMPRESSION: No acute cardiopulmonary disease..
[2017-03-07] MEDS ORDERED: DILAUDID IV ONE (23:50)
[2017-03-07] MEDS ORDERED: ZOFRAN IV ONE (23:51)
[2017-03-07] MEDS ORDERED: NACL 0.9% 1000 ML 1,000 ML IV ONE (23:51)
--- NOTE | 2017-03-08 00:54 | Cat Scan Report ---
FINAL REPORT PROCEDURE: CT ABDOMEN PELVIS WO CON TECHNIQUE: Computerized axial tomography of the abdomen and pelvis was performed without intravenous contrast. This study is performed without intravascular contrast material and its sensitivity for abdominal and pelvic pathology, including neoplasms, inflammation, abscess, free fluid, thrombosis, arterial dissection and infarction, is reduced compared with a contrast enhanced study. HISTORY: right flank pain COMPARISON: No prior studies are available for comparison. FINDINGS: Visualized lower thorax: No significant abnormality. Liver: Normal size and attenuation. Spleen: Normal size and attenuation. Gallbladder and biliary system: Normal. Pancreas: Normal. Adrenals: Normal. Kidneys: Both kidneys have normal size. No hydronephrosis. No renal stones or masses.. GI tract: Stomach is normal. The small bowel has a normal appearance. No obstruction, ileus or enteritis. The cecum, appendix and colon are normal.. Lymph nodes and mesentery: Normal. Vasculature: Normal. Bladder: Normal. Reproductive organs: Normal. Peritoneum: No free fluid. Musculoskeletal structures: No significant abnormality. Other: None. IMPRESSION: There is no evidence of intestinal or urinary tract obstruction. No ileus or enteritis. The appendix is normal..
[2017-03-08] MEDS ORDERED: PERCOCET 5/325 PO ONE (01:00)
--- NOTE | 2017-03-08 01:10 | Emergency Department Report ---
HPI - General Chief Complaint: Dyspnea/Respdistress Time Seen by Provider: 03/07/17 23:50 - HPI HPI: Patient's complaining of right flank pain, for 10 days. Patient went to an outside hospital and was told it was gas. She states she continued to be alert and to the point that it hurts when she breathes. Patient denies any fever, chills, night sweats, nausea, vomiting. Patient has been taking medication for gas without relief. ED Past Medical Hx - Past Medical History Previous Medical History?: Yes Hx Hypertension: Yes Hx Congestive Heart Failure: Yes ( cardiomyopathy) Hx Diabetes: No Hx Arthritis: Yes Hx Asthma: Yes Hx COPD: Yes Hx HIV: No Additional medical history: sleep apnea - Surgical History Past Surgical History?: Yes Additional Surgical History: x 3, orthopedic (arch replacement) - Social History Smoking Status: Current Every Day Smoker - Medications Home Medications: Home Medications Medication Instructions Recorded Confirmed Last Taken Type Albuterol Sulfate [Proventil HFA] 1 - 2 puff IH Q4H PRN #1 hfa.aer.ad 09/24/14 01/09/17 01/08/17 Rx ALBUTEROL Inhaler [ProAir HFA 2 puff IH QID PRN #1 inhalation 01/14/17 Unknown Rx Inhaler] Azithromycin [Zithromax TAB] 500 mg PO QDAY #5 tablet 01/14/17 Unknown Rx Cetirizine HCl [ZyrTEC] 10 mg PO PRN #30 capsule 01/14/17 Unknown Rx Furosemide [Lasix TAB] 20 mg PO QDAY #30 tablet 01/14/17 Unknown Rx HYDROcodone/APAP 5-325 [[place] 1 each PO Q4H PRN #12 tablet 01/14/17 Unknown Rx 5-325 mg TAB] Hydrochlorothiazide [HCTZ] 25 mg PO QDAY #30 tablet 01/14/17 Unknown Rx Ipratropium/Albuterol Sulfate 1 ampul IH Q6HRT #30 ampul.neb 01/14/17 Unknown Rx [DUONEB *Not for PRN Use*] Naproxen [Naprosyn TAB] 500 mg PO BID #20 tablet 01/14/17 Unknown Rx Prednisone [predniSONE 5 mg (6-Day 5 mg PO .TAPER #1 tab.ds.pk 01/14/17 Unknown Rx Pack, 21 Tabs)] amLODIPine [Norvasc] 10 mg PO DAILY #90 tab 01/14/17 Unknown Rx guaiFENesin ER [Mucinex ER] 600 mg PO BID #10 tablet 01/14/17 Unknown Rx Albuterol Sulfate [Albuterol 0.63% 0.63 mg IH Q4HR PRN #2 ml 01/15/17 Unknown Rx NEBS] Albuterol Sulfate [Proair 90 mcg IH Q4HR PRN #2 aer.pow.ba 01/15/17 Unknown Rx Respiclick] HYDROcodone/APAP 5-325 [[place] 1 each PO Q4-6H PRN #15 tablet 01/15/17 Unknown Rx 5-325 mg TAB] Ipratropium [place] [Atrovent Hfa] 12.9 gm IH Q4HR #2 hfa.aer.ad 01/15/17 Unknown Rx Ipratropium [Atrovent NEB] 0.5 mg IH Q4HR #2 ml 01/15/17 Unknown Rx traMADol [Ultram] 50 mg PO Q6HR PRN #15 tablet 03/08/17 Unknown Rx ED Review of Systems ROS: Stated complaint: DIANNA/ RT SIDE PAIN Other details as noted in HPI Comment: All other systems reviewed and negative Cardiovascular: as per HPI Endocrine: no symptoms reported Gastrointestinal: abdominal pain, nausea Physical Exam - Physical Exam Vital Signs: Vital Signs 03/07/17 03/07/17 03/07/17 18:44 21:40 22:26 Temperature 98.8 F 98.0 F 98.3 F Pulse Rate 114 H 100 H 102 H Respiratory 20 20 20 Rate Blood Pressure 155/117 154/95 Blood Pressure 146/106 [Right] O2 Sat by Pulse 98 100 97 Oximetry 03/07/17 22:27 Temperature Pulse Rate Respiratory 20 Rate Blood Pressure Blood Pressure [Right] O2 Sat by Pulse 97 Oximetry Physical Exam: - Physical Exam - General Limitations: No Limitations General appearance: alert, in no apparent distress, obese - Head Head exam: Present: atraumatic, normocephalic - Eye Eye exam: Present: normal appearance - ENT ENT exam: Present: mucous membranes moist - Neck Neck exam: Present: normal inspection - Respiratory Respiratory exam: Present: normal lung sounds bilaterally. Absent: respiratory distress - Cardiovascular Cardiovascular Exam: Present: normal rhythm, normal rate Absent: systolic murmur , diastolic murmur, rubs, gallop - GI/Abdominal GI/Abdominal exam: Present: soft, normal bowel sounds - Extremities Exam Extremities exam: Present: normal inspection - Back Exam Back exam: Present: Right flank tenderness - Neurological Exam Neurological exam: Present: alert, oriented X3 - Psychiatric Psychiatric exam: normal affect and mood - Skin Skin exam: Present: warm, dry, intact, normal color. Absent: rash ED Course Vital Signs 03/07/17 03/07/17 03/07/17 18:44 21:40 22:26 Temperature 98.8 F 98.0 F 98.3 F Pulse Rate 114 H 100 H 102 H Respiratory 20 20 20 Rate Blood Pressure 155/117 154/95 Blood Pressure 146/106 [Right] O2 Sat by Pulse 98 100 97 Oximetry 03/07/17 22:27 Temperature Pulse Rate Respiratory 20 Rate Blood Pressure Blood Pressure [Right] O2 Sat by Pulse 97 Oximetry ED Medical Decision Making - Lab Data Result diagrams: 03/07/17 18:58 03/07/17 18:58 Critical care attestation.: If time is entered above; I have spent that time in minutes in the direct care of this critically ill patient, excluding procedure time. ED Disposition Clinical Impression: Right flank pain Disposition: DC-01 TO HOME OR SELFCARE Is pt being admited?: No Does the pt Need Aspirin: No Condition: Stable Prescriptions: traMADol [Ultram] 50 mg PO Q6HR PRN #15 tablet PRN Reason: Pain Referrals: PRIMARY CARE, [Primary Care Provider] - 3-5 Days
[2017-03-08] MEDS ORDERED: DILAUDID IV ONE (01:52)
[2017-03-08] MEDS ORDERED: DILAUDID ONE (01:54)
[2017-03-08] MEDS ORDERED: BENADRYL ONE (03:08)
[2017-03-08 04:51] VITALS: BP 125/74
[2017-03-08] MEDS ORDERED: BENADRYL IV ONE (06:27)
== END 2017-03-08 04:27 | disposition home or self-care (01) ==
LOC: ED 18:39
DX: R10.30 Lower abdominal pain, unspecified (principal); I10 Essential (primary) hypertension; I50.9 Heart failure, unspecified; J45.909 Unspecified asthma, uncomplicated; J44.9 Chronic obstructive pulmonary disease, unspecified; F17.200 Nicotine dependence, unspecified, uncomplicated
CPT/HCPCS: 36415; 71020; 74176; 80048; 81001; 84484; 84703; 85025; 93005; 93010; 96361; 96374; 96375; 96376; 99284; J1170; J1200; J2405; J7030

== ENCOUNTER 2017-09-28 18:20 | Inpatient (IN) | payer MEDICAID, OTHER ==
[2017-09-28] MEDS ORDERED: DUONEB *Not for PRN Use IH ONE (18:29)
[2017-09-28] MEDS ORDERED: MAGNESIUM SULFATE 2GM/50ML 2 GM/50 ML BAG IV ONE ×2 (18:57→19:03)
[2017-09-28] MEDS ORDERED: PROVENTIL IH ONE ×4 (18:58→19:04)
[2017-09-28] MEDS ORDERED: ATROVENT IH ONE ×3 (19:03→19:05)
--- NOTE | 2017-09-28 19:15 | Emergency Department Report ---
ED Shortness of Breath HPI - General Chief Complaint: Dyspnea/Respdistress Stated Complaint: ASTHMA/DIANNA Time Seen by Provider: 09/28/17 18:54 Source: patient Mode of arrival: Ambulatory Limitations: No Limitations - History of Present Illness Initial Comments: 41-year-old female with a past medical obesity, asthma, cardiopathy, COPD, asthma, hypertension, and sleep apnea presents to the hospital complaining of wheezing or shortness of breath since last night. Patient presents in significant respiratory distress, and able to speak and he sentences , and accessory muscle use. She received 1 DuoNeb prior to my evaluation with minimal improvement. Occasional cough noted without fever. Only chest tightness that is worse with inspiration. No complaints of fever or previous intubations. Positive previous ICU admission for asthma in the past. - Related Data Previous Rx's Medication Instructions Recorded Last Taken Type Albuterol Sulfate [Proventil HFA] 1 - 2 puff IH Q4H PRN #1 hfa.aer.ad 09/24/14 01/08/17 Rx ALBUTEROL Inhaler [ProAir HFA 2 puff IH QID PRN #1 inhalation 01/14/17 Unknown Rx Inhaler] Azithromycin [Zithromax TAB] 500 mg PO QDAY #5 tablet 01/14/17 Unknown Rx Cetirizine HCl [ZyrTEC] 10 mg PO PRN #30 capsule 01/14/17 Unknown Rx Furosemide [Lasix TAB] 20 mg PO QDAY #30 tablet 01/14/17 Unknown Rx HYDROcodone/APAP 5-325 [[place] 1 each PO Q4H PRN #12 tablet 01/14/17 Unknown Rx 5-325 mg TAB] Hydrochlorothiazide [HCTZ] 25 mg PO QDAY #30 tablet 01/14/17 Unknown Rx Ipratropium/Albuterol Sulfate 1 ampul IH Q6HRT #30 ampul.neb 01/14/17 Unknown Rx [DUONEB *Not for PRN Use*] Naproxen [Naprosyn TAB] 500 mg PO BID #20 tablet 01/14/17 Unknown Rx Prednisone [predniSONE 5 mg (6-Day 5 mg PO .TAPER #1 tab.ds.pk 01/14/17 Unknown Rx Pack, 21 Tabs)] amLODIPine [Norvasc] 10 mg PO DAILY #90 tab 01/14/17 Unknown Rx guaiFENesin ER [Mucinex ER] 600 mg PO BID #10 tablet 01/14/17 Unknown Rx Albuterol Sulfate [Albuterol 0.63% 0.63 mg IH Q4HR PRN #2 ml 01/15/17 Unknown Rx NEBS] Albuterol Sulfate [Proair 90 mcg IH Q4HR PRN #2 aer.pow.ba 01/15/17 Unknown Rx Respiclick] HYDROcodone/APAP 5-325 [[place] 1 each PO Q4-6H PRN #15 tablet 01/15/17 Unknown Rx 5-325 mg TAB] Ipratropium [place] [Atrovent Hfa] 12.9 gm IH Q4HR #2 hfa.aer.ad 01/15/17 Unknown Rx Ipratropium [Atrovent NEB] 0.5 mg IH Q4HR #2 ml 01/15/17 Unknown Rx traMADol [Ultram] 50 mg PO Q6HR PRN #15 tablet 03/08/17 Unknown Rx Allergies Allergy/AdvReac Type Severity Reaction Status Date / Time iodine Allergy Rash Verified 06/09/15 01:19 shellfish derived Allergy Rash Verified 06/09/15 01:19 ED Review of Systems ROS: Stated complaint: ASTHMA/DIANNA Other details as noted in HPI Comment: All other systems reviewed and negative ED Past Medical Hx - Past Medical History Hx Hypertension: Yes Hx Congestive Heart Failure: Yes ( cardiomyopathy) Hx Diabetes: No Hx Arthritis: Yes Hx Asthma: Yes Hx COPD: Yes Hx HIV: No Additional medical history: sleep apnea - Surgical History Additional Surgical History: x 3, orthopedic (arch replacement) - Social History Smoking Status: Never Smoker Substance Use Type: None - Medications Home Medications: Home Medications Medication Instructions Recorded Confirmed Last Taken Type Albuterol Sulfate [Proventil HFA] 1 - 2 puff IH Q4H PRN #1 hfa.aer.ad 09/24/14 01/09/17 01/08/17 Rx ALBUTEROL Inhaler [ProAir HFA 2 puff IH QID PRN #1 inhalation 01/14/17 Unknown Rx Inhaler] Azithromycin [Zithromax TAB] 500 mg PO QDAY #5 tablet 01/14/17 Unknown Rx Cetirizine HCl [ZyrTEC] 10 mg PO PRN #30 capsule 01/14/17 Unknown Rx Furosemide [Lasix TAB] 20 mg PO QDAY #30 tablet 01/14/17 Unknown Rx HYDROcodone/APAP 5-325 [[place] 1 each PO Q4H PRN #12 tablet 01/14/17 Unknown Rx 5-325 mg TAB] Hydrochlorothiazide [HCTZ] 25 mg PO QDAY #30 tablet 01/14/17 Unknown Rx Ipratropium/Albuterol Sulfate 1 ampul IH Q6HRT #30 ampul.neb 01/14/17 Unknown Rx [DUONEB *Not for PRN Use*] Naproxen [Naprosyn TAB] 500 mg PO BID #20 tablet 01/14/17 Unknown Rx Prednisone [predniSONE 5 mg (6-Day 5 mg PO .TAPER #1 tab.ds.pk 01/14/17 Unknown Rx Pack, 21 Tabs)] amLODIPine [Norvasc] 10 mg PO DAILY #90 tab 01/14/17 Unknown Rx guaiFENesin ER [Mucinex ER] 600 mg PO BID #10 tablet 01/14/17 Unknown Rx Albuterol Sulfate [Albuterol 0.63% 0.63 mg IH Q4HR PRN #2 ml 01/15/17 Unknown Rx NEBS] Albuterol Sulfate [Proair 90 mcg IH Q4HR PRN #2 aer.pow.ba 01/15/17 Unknown Rx Respiclick] HYDROcodone/APAP 5-325 [[place] 1 each PO Q4-6H PRN #15 tablet 01/15/17 Unknown Rx 5-325 mg TAB] Ipratropium [place] [Atrovent Hfa] 12.9 gm IH Q4HR #2 hfa.aer.ad 01/15/17 Unknown Rx Ipratropium [Atrovent NEB] 0.5 mg IH Q4HR #2 ml 01/15/17 Unknown Rx traMADol [Ultram] 50 mg PO Q6HR PRN #15 tablet 03/08/17 Unknown Rx ED Physical Exam - General Limitations: No Limitations - Other Other exam information: General: Positive respiratory distress Head exam: Atraumatic, normocephalic Eyes exam: Normal appearance ENT: Moist mucous membrane, normal oropharynx Neck exam: Normal inspection, full range of motion, no meningismus nontender Respiratory exam: Diminished breath sounds bilaterally, wheezing, excessive muscle use, not able to speak in complete sentences Cardiovascular: Tachycardic regular Abdomen: Soft, nondistended, and nontender, with normal bowel sounds, no rebound, or guarding Extremity: Full range of motion normal inspection no deformity, no calf tenderness or edema Back: Normal Inspection, full range of motion, no tenderness Neurologic: Alert, oriented x3, cranial nerves intact, no motor or sensory deficit Psychiatric: normal affect, normal mood Skin: Warm, dry, intact ED Course Vital Signs 09/28/17 09/28/17 09/28/17 18:25 18:54 19:00 Temperature 98.1 F Pulse Rate 94 H 89 88 Pulse Rate [ Anterior Bilateral Throughout] Respiratory 27 H 45 H 39 H Rate Respiratory Rate [Anterior Bilateral Throughout] Blood Pressure 171/115 138/81 Blood Pressure [Left] O2 Sat by Pulse 96 97 99 Oximetry 09/28/17 09/28/17 09/28/17 19:04 19:27 19:40 Temperature Pulse Rate 88 Pulse Rate [ 92 H 87 Anterior Bilateral Throughout] Respiratory 30 H Rate Respiratory 22 24 Rate [Anterior Bilateral Throughout] Blood Pressure 138/81 Blood Pressure [Left] O2 Sat by Pulse 98 Oximetry 09/28/17 09/28/17 20:00 20:57 Temperature Pulse Rate 88 Pulse Rate [ Anterior Bilateral Throughout] Respiratory 20 Rate Respiratory Rate [Anterior Bilateral Throughout] Blood Pressure 155/87 Blood Pressure 160/49 [Left] O2 Sat by Pulse 98 98 Oximetry - Reevaluation(s) Reevaluation #1: 09/28/17 22:13 some improvement with treatment by symptoms persist ED Medical Decision Making - Lab Data Result diagrams: 09/28/17 19:07 09/28/17 19:07 Lab Results 09/28/17 09/28/17 09/28/17 Range/Units 19:07 19:07 19:07 WBC 9.8 (4.5-11.0) K/mm3 RBC 4.97 (3.65-5.03) M/mm3 Hgb 13.3 (10.1-14.3) gm/dl Hct 41.1 (30.3-42.9) % MCV 83 (79-97) fl MCH 27 L (28-32) pg MCHC 32 (30-34) % RDW 15.5 H (13.2-15.2) % Plt Count 286 (140-440) K/mm3 Lymph % (Auto) 35.1 H (13.4-35.0) % [place] % (Auto) 8.0 H (0.0-7.3) % Eos % (Auto) 2.6 (0.0-4.3) % Baso % (Auto) 0.7 (0.0-1.8) % Lymph # 3.4 (1.2-5.4) K/mm3 [place] # 0.8 (0.0-0.8) K/mm3 Eos # 0.2 (0.0-0.4) K/mm3 Baso # 0.1 (0.0-0.1) K/mm3 Seg Neutrophils % 53.6 (40.0-70.0) % Seg Neutrophils # 5.2 (1.8-7.7) K/mm3 Sodium 137 (137-145) mmol/L Potassium 4.1 (3.6-5.0) mmol/L Chloride 95.8 L (98-107) mmol/L Carbon Dioxide 27 (22-30) mmol/L Anion Gap 18 mmol/L BUN 10 (7-17) mg/dL Creatinine 0.7 (0.7-1.2) mg/dL Estimated GFR > 60 ml/min BUN/Creatinine Ratio 14 % Glucose 98 (65-100) mg/dL Calcium 9.2 (8.4-10.2) mg/dL HCG, Qual Negative (Negative) - Radiology Data Radiology results: report reviewed (cxr: naf (read by radiology)) - Medical Decision Making Patient stable quiet BiPAP support and continues to complain of shortness of breath. Will be admitted for status asthmaticus. She'll magnesium, Solu-Medrol , and multiple nebs including BiPAP support - Differential Diagnosis asthma, chf, bronchitis, Critical Care Time: No Critical care attestation.: If time is entered above; I have spent that time in minutes in the direct care of this critically ill patient, excluding procedure time. ED Disposition Clinical Impression: Status asthmaticus, Morbid obesity, Sleep apnea, HTN (hypertension) Disposition: OP ADMIT IP TO THIS HOSP Is pt being admited?: Yes Condition: Stable Time of Disposition: 22:12 (Dr Seaman/hosp)
[2017-09-28 19:16] LABS: Basophils # (Auto) 0.1 K/mm3 (0.0-0.1); Basophils % (Auto) 0.7 % (0.0-1.8); Eosinophils # (Auto) 0.2 K/mm3 (0.0-0.4); Eosinophils % (Auto) 2.6 % (0.0-4.3); Hematocrit 41.1 % (30.3-42.9); Hemoglobin 13.3 gm/dl (10.1-14.3); Lymphocytes # (Auto) 3.4 K/mm3 (1.2-5.4); Lymphocytes % (Auto) 35.1 % (13.4-35.0); Mean Corpuscular HGB Conc 32 % (30-34); Mean Corpuscular Hemoglobin 27 pg (28-32); Mean Corpuscular Volume 83 fl (79-97); Monocytes # (Auto) 0.8 K/mm3 (0.0-0.8); Platelet Count 286 K/mm3 (140-440); Red Blood Count 4.97 M/mm3 (3.65-5.03); Red Cell Distribution Width 15.5 % (13.2-15.2)
[2017-09-28 19:56] LABS: BUN/Creatinine Ratio 14; Blood Urea Nitrogen 10 mg/dL (7-17); Calcium 9.2 mg/dL (8.4-10.2); Hemolysis Index 0
--- NOTE | 2017-09-28 22:00 | XRay Report ---
FINAL REPORT EXAM: XR CHEST 1V AP HISTORY: sob TECHNIQUE: AP portable view(s) of the chest obtained. PRIORS: 03/07/2017 FINDINGS: No mediastinal shift. Cardiac silhouette is not enlarged. No pneumothorax, effusion, or focal pulmonary opacity identified. No acute skeletal findings. IMPRESSION: No acute pulmonary finding identified.
[2017-09-28] MEDS ORDERED: ZOFRAN IV PRN (22:19)
[2017-09-28] MEDS ORDERED: CLARITIN PO PRN (22:45)
[2017-09-28] MEDS ORDERED: MORPHINE IV ONE (23:05)
[2017-09-28] MEDS ORDERED: ASPIRIN PO ONE (23:05)
[2017-09-28] MEDS ORDERED: ASPIRIN ONE (23:26)
[2017-09-28] MEDS ORDERED: MORPHINE ONE (23:27)
[2017-09-29] MEDS: PROVENTIL IH PRN ×3 (01:37→14:16)
[2017-09-29] MEDS: ROBITUSSIN PO SCH ×7 (04:20→22:54)
--- NOTE | 2017-09-29 08:20 | History and Physical Report ---
CHIEF COMPLAINT: Shortness of breath. HISTORY OF PRESENT ILLNESS: The patient is a 41-year-old female with history of asthma, having shortness of breath going on for about 24 hours, and there is associated history of cough which is nonproductive. There was also no history of fever or chills and no history of nausea and vomiting. The patient presented to the Emergency Room. PAST MEDICAL HISTORY: Pertinent for asthma, congestive heart failure which is due to cardiomyopathy. Also, the patient has past history of arthritis, hypertension, COPD, sleep apnea. PAST SURGICAL HISTORY: Pertinent for C-sections x 3, and orthopedic surgical treatment involving arch replacement. FAMILY HISTORY: Noncontributory. SOCIAL HISTORY: The patient does smoke, does not drink alcohol and does not use illicit drugs. MEDICATIONS: The patient is on Proventil inhaler 1-2 puffs 4 times a day, Zithromax 500 mg by mouth daily. The patient is also on Zyrtec 10 mg by mouth daily as needed and Lasix 20 mg by mouth daily. The patient is on [place] 5/325 one by mouth every 4 hours as needed for pain and hydrochlorothiazide 25 mg by mouth daily. The patient is also on DuoNeb every 6 hours and on naproxen 500 mg by mouth twice daily. The patient is also on prednisone 5 mg by mouth daily, amlodipine 10 mg by mouth daily as well as Mucinex 600 mg by mouth twice daily. The patient is also on [place] 5/325 one by mouth every 4 hours as needed for pain, and tramadol 50 mg every 6 hours as needed for pain. ALLERGIES: THE PATIENT IS ALLERGIC TO IODINE AND SHELLFISH. REVIEW OF SYSTEMS: CONSTITUTIONAL: No fever, no chills, no diaphoresis. HEENT: There is no headache or sore throat. CARDIOVASCULAR: There is no chest pain or orthopnea. RESPIRATORY: There is shortness of breath and there is cough. GASTROINTESTINAL: There is no nausea, no vomiting. No abdominal pain, diarrhea or vision. NEUROLOGICAL: There is no numbness, no dizziness, no altered mental status. MUSCULOSKELETAL: There is no joint pain or swelling. DERMATOLOGICAL: There is no skin rash or itching. GENITOURINARY: There is dysuria, hematuria or flank pain. Rest of system review is normal. PHYSICAL EXAMINATION: GENERAL: At the time of exam, the patient was found to be alert, oriented x 3 and in mild to moderate distress due to shortness of breath. VITAL SIGNS: Show temperature of 98.4 degree Fahrenheit, pulse of 99, respirations 17, blood pressure 131/78, O2 sat of 98% on oxygen and also on BiPAP. HEENT: Showed pupils to be equal, round, reactive to light and accommodation. Extraocular muscles are intact. NECK: Supple with no JVD or carotid bruit. CARDIOVASCULAR: Showed normal first and second heart sounds with no gallops or murmurs. RESPIRATORY: Showed reduced air entry on both sides of the lung with mild respiratory wheezing. GASTROINTESTINAL: Shows abdomen to be full, soft, nontender with no organomegaly or rigidity. NEUROLOGICAL: Shows no focal deficits. MUSCULOSKELETAL: Shows no joint swelling or tenderness. DERMATOLOGICAL: Shows no skin rash. GENITOURINARY: Showing no costovertebral angle tenderness. PERTINENT LABORATORY AND IMAGING STUDIES: CBC showed normal white count, normal hemoglobin and normal hematocrit with CBC differential showing elevated monocyte count of 8% and elevated lymphocyte count of 35.1%. The patient's chemistry is unremarkable. test was negative. Troponin level came back normal. IMAGING STUDIES: The patient had a chest x-ray done that shows no acute cardiopulmonary lesion. DIAGNOSIS: Asthma exacerbation. PLAN: The patient will be admitted to medical floor to continue BiPAP and we will be on IV Solu-Medrol 60 mg q. 8 hours. The patient will also be on albuterol nebulizer 5 mg q. 4 hours, and will be on IV Levaquin 750 mg daily. The patient will also be on IV Zofran 4 mg every 8 hours as needed for nausea and vomiting and will be on Tylenol 650 mg every 4 hours as needed for fever and headache. The patient will be on Robitussin 200 mg every 4 hours for cough. The patient's diet will be 2 g sodium diet. DVT prophylaxis will be through heparin 5000 units subQ q. 12 hours. The patient also will be on morphine 2 mg 1 time for pain. JOB# [id number] OCN/NTS
--- NOTE | 2017-09-29 09:11 | Progress Note ---
<EDU GOMEZ - Last Filed: 09/29/17 15:17> Assessment and Plan Assessment and plan: Patient is a 41-year-old female with history of asthma who presented to the emergency department with shortness of breath and associated cough which is nonproductive for 24 hours prior to admission. Asthma exacerbation Continue IV antibiotics, nebs, supplemental oxygen and Solu-Medrol, patient is on BiPAP Pulmonology consulted Nonproductive Cough Likely secondary to above, chest xray negative, Robitussin AC when necessary Morbid Obesity Patient counseled on weight loss DVT prophylaxis Heparin History Interval history: Patient seen and examined. She is still SOB especially with exertion. Labs and nursing notes reviewed. Hospitalist Physical - Constitutional Vitals: Temp Pulse Resp BP Pulse Ox 98.4 F 89 23 167/84 99 09/29/17 00:19 09/29/17 07:58 09/29/17 07:58 09/29/17 00:19 09/29/17 08:46 General appearance: Present: no acute distress, well-nourished, obese - EENT Eyes: Present: PERRL, EOM intact ENT: hearing intact, clear oral mucosa - Neck Neck: Present: supple, normal ROM - Respiratory Respiratory effort: normal Respiratory: bilateral: diminished - Cardiovascular Rhythm: regular Heart Sounds: Present: S1 & S2 - Extremities Extremities: no ischemia, No edema - Abdominal General gastrointestinal: soft, non-tender, non-distended - Integumentary Integumentary: Present: clear, warm, dry - Psychiatric Psychiatric: appropriate mood/affect, intact judgment & insight, cooperative - Neurologic Neurologic: CNII-XII intact, moves all extremities - Allied Health Allied health notes reviewed: nursing Results - Labs CBC & Chem 7: 09/28/17 19:07 09/28/17 19:07 Labs: Laboratory Last Values WBC 9.8 K/mm3 (4.5-11.0) 09/28/17 19:07 RBC 4.97 M/mm3 (3.65-5.03) 09/28/17 19:07 Hgb 13.3 gm/dl (10.1-14.3) 09/28/17 19:07 Hct 41.1 % (30.3-42.9) 09/28/17 19:07 MCV 83 fl (79-97) 09/28/17 19:07 MCH 27 pg (28-32) L 09/28/17 19:07 MCHC 32 % (30-34) 09/28/17 19:07 RDW 15.5 % (13.2-15.2) H 09/28/17 19:07 Plt Count 286 K/mm3 (140-440) 09/28/17 19:07 Lymph % (Auto) 35.1 % (13.4-35.0) H 09/28/17 19:07 [place] % (Auto) 8.0 % (0.0-7.3) H 09/28/17 19:07 Eos % (Auto) 2.6 % (0.0-4.3) 09/28/17 19:07 Baso % (Auto) 0.7 % (0.0-1.8) 09/28/17 19:07 Lymph # 3.4 K/mm3 (1.2-5.4) 09/28/17 19:07 [place] # 0.8 K/mm3 (0.0-0.8) 09/28/17 19:07 Eos # 0.2 K/mm3 (0.0-0.4) 09/28/17 19:07 Baso # 0.1 K/mm3 (0.0-0.1) 09/28/17 19:07 Seg Neutrophils % 53.6 % (40.0-70.0) 09/28/17 19:07 Seg Neutrophils # 5.2 K/mm3 (1.8-7.7) 09/28/17 19:07 Sodium 137 mmol/L (137-145) 09/28/17 19:07 Potassium 4.1 mmol/L (3.6-5.0) 09/28/17 19:07 Chloride 95.8 mmol/L (98-107) L 09/28/17 19:07 Carbon Dioxide 27 mmol/L (22-30) 09/28/17 19:07 Anion Gap 18 mmol/L 09/28/17 19:07 BUN 10 mg/dL (7-17) 09/28/17 19:07 Creatinine 0.7 mg/dL (0.7-1.2) 09/28/17 19:07 Estimated GFR > 60 ml/min 09/28/17 19:07 BUN/Creatinine Ratio 14 % 09/28/17 19:07 Glucose 98 mg/dL (65-100) 09/28/17 19:07 Calcium 9.2 mg/dL (8.4-10.2) 09/28/17 19:07 Total Creatine Kinase 58 units/L (30-135) 09/28/17 23:32 Troponin T < 0.010 ng/mL (0.00-0.029) 09/28/17 23:32 HCG, Qual Negative (Negative) 09/28/17 19:07 <BRITTANY ÁLVAREZ - Last Filed: 09/30/17 10:37> Assessment and Plan Assessment and plan: I saw and evaluated the patient. I agree with the findings and the plan of care as documented in the Nurse Practitioner's~note, with the following corrections and additions. Patient with asthma exacerbation. Continue solumedrol, nebs. Pulmonology to see Hospitalist Physical - Constitutional Vitals: Temp Pulse Resp BP Pulse Ox 98.3 F 101 H 20 153/110 100 09/30/17 07:39 09/30/17 07:39 09/30/17 07:39 09/30/17 07:39 09/30/17 07:39 Results - Labs CBC & Chem 7: 09/28/17 19:07 09/28/17 19:07 Labs: Laboratory Last Values WBC 9.8 K/mm3 (4.5-11.0) 09/28/17 19:07 RBC 4.97 M/mm3 (3.65-5.03) 09/28/17 19:07 Hgb 13.3 gm/dl (10.1-14.3) 09/28/17 19:07 Hct 41.1 % (30.3-42.9) 09/28/17 19:07 MCV 83 fl (79-97) 09/28/17 19:07 MCH 27 pg (28-32) L 09/28/17 19:07 MCHC 32 % (30-34) 09/28/17 19:07 RDW 15.5 % (13.2-15.2) H 09/28/17 19:07 Plt Count 286 K/mm3 (140-440) 09/28/17 19:07 Lymph % (Auto) 35.1 % (13.4-35.0) H 09/28/17 19:07 [place] % (Auto) 8.0 % (0.0-7.3) H 09/28/17 19:07 Eos % (Auto) 2.6 % (0.0-4.3) 09/28/17 19:07 Baso % (Auto) 0.7 % (0.0-1.8) 09/28/17 19:07 Lymph # 3.4 K/mm3 (1.2-5.4) 09/28/17 19:07 [place] # 0.8 K/mm3 (0.0-0.8) 09/28/17 19:07 Eos # 0.2 K/mm3 (0.0-0.4) 09/28/17 19:07 Baso # 0.1 K/mm3 (0.0-0.1) 09/28/17 19:07 Seg Neutrophils % 53.6 % (40.0-70.0) 09/28/17 19:07 Seg Neutrophils # 5.2 K/mm3 (1.8-7.7) 09/28/17 19:07 D-Dimer < 135.00 ng/mlDDU (0-234) 09/29/17 17:38 POC ABG pH 7.390 (7.35-7.45) 09/29/17 14:46 POC ABG pCO2 43.1 (35-45) 09/29/17 14:46 POC ABG pO2 74 (80-105) L 09/29/17 14:46 POC ABG HCO3 26.1 09/29/17 14:46 POC ABG Total CO2 27 09/29/17 14:46 POC ABG O2 Sat 95 09/29/17 14:46 POC ABG Base Excess 1 09/29/17 14:46 FiO2 21 % 09/29/17 14:46 Sodium 137 mmol/L (137-145) 09/28/17 19:07 Potassium 4.1 mmol/L (3.6-5.0) 09/28/17 19:07 Chloride 95.8 mmol/L (98-107) L 09/28/17 19:07 Carbon Dioxide 27 mmol/L (22-30) 09/28/17 19:07 Anion Gap 18 mmol/L 09/28/17 19:07 BUN 10 mg/dL (7-17) 09/28/17 19:07 Creatinine 0.7 mg/dL (0.7-1.2) 09/28/17 19:07 Estimated GFR > 60 ml/min 09/28/17 19:07 BUN/Creatinine Ratio 14 % 09/28/17 19:07 Glucose 98 mg/dL (65-100) 09/28/17 19:07 Calcium 9.2 mg/dL (8.4-10.2) 09/28/17 19:07 Total Creatine Kinase 58 units/L (30-135) 09/28/17 23:32 Troponin T < 0.010 ng/mL (0.00-0.029) 09/28/17 23:32 HCG, Qual Negative (Negative) 09/28/17 19:07
[2017-09-29] MEDS: LASIX PO SCH (09:35)
[2017-09-29] MEDS: NORVASC PO SCH ×2 (09:35→09:41)
[2017-09-29] MEDS: ZITHROMAX PO SCH (09:35)
[2017-09-29] MEDS: LEVAQUIN 750MG/150ML 750 MG/150 ML BAG IV SCH (09:36)
[2017-09-29] MEDS: HEPARIN SUB-Q SCH ×2 (09:36→22:32)
[2017-09-29] MEDS: PERCOCET 5/325 PO PRN ×2 (11:45→19:32)
--- NOTE | 2017-09-29 12:57 | Consultation ---
History of Present Illness Consult date: 09/29/17 Requesting physician: BRITTANY ÁLVAREZ Reason for consult: asthma History of present illness: PULMONARY/CCM CONSULT NOTE (Full note dictated # [id number]) Please see dictated notes for full details Medications and Allergies Allergies Allergy/AdvReac Type Severity Reaction Status Date / Time iodine Allergy Rash Verified 06/09/15 01:19 shellfish derived Allergy Rash Verified 06/09/15 01:19 Home Medications Medication Instructions Recorded Confirmed Last Taken Type Albuterol Sulfate [Proventil HFA] 1 - 2 puff IH Q4H PRN #1 hfa.aer.ad 09/24/14 09/29/17 09/28/17 Rx ALBUTEROL Inhaler [ProAir HFA 2 puff IH QID PRN #1 inhalation 01/14/17 09/29/17 09/28/17 Rx Inhaler] Cetirizine HCl [ZyrTEC] 10 mg PO PRN #30 capsule 01/14/17 09/29/17 Unknown Rx Furosemide [Lasix TAB] 20 mg PO QDAY #30 tablet 01/14/17 09/29/17 09/28/17 Rx Albuterol Sulfate [Albuterol 0.63% 0.63 mg IH Q4HR PRN #2 ml 01/15/17 09/29/17 09/28/17 Rx NEBS] Albuterol Sulfate [Proair 90 mcg IH Q4HR PRN #2 aer.pow.ba 01/15/17 09/29/17 Rx Respiclick] Aspirin [Aspirin TAB] 325 mg PO QDAY 09/29/17 09/29/17 09/28/17 History Lipitor 40 mg PO HS 09/29/17 09/29/17 09/27/17 History metFORMIN [Glucophage] 1,000 mg PO BID 09/29/17 09/29/17 09/28/17 History Active Meds: Active Medications Albuterol (Proventil) 5 mg IH Q4HRT PRN PRN Reason: Shortness Of Breath Last Admin: 09/29/17 07:57 Dose: 5 mg Amlodipine Besylate (Norvasc) 10 mg PO DAILY [facility] Last Admin: 09/29/17 09:41 Dose: Not Given Azithromycin (Zithromax) 500 mg PO QDAY [facility] Last Admin: 09/29/17 09:35 Dose: 500 mg Furosemide (Lasix) 20 mg PO QDAY [facility] Last Admin: 09/29/17 09:35 Dose: 20 mg Guaifenesin (Robitussin) 200 mg PO Q4H [facility] Last Admin: 09/29/17 11:44 Dose: 200 mg Heparin Sodium (Porcine) (Heparin) 5,000 unit SUB-Q Q12HR [facility] Last Admin: 09/29/17 09:36 Dose: 5,000 unit Levofloxacin/Dextrose (Levaquin 750mg/150ml) 750 mg in 150 mls @ 100 mls/hr IV Q24HR [facility]; Protocol Last Admin: 09/29/17 09:36 Dose: 100 mls/hr Loratadine (Claritin) 10 mg PO QDAY PRN PRN Reason: CONGESTION NASAL Methylprednisolone Sodium Succinate (Solu-Medrol) 60 mg IV Q8H [facility] Last Admin: 09/29/17 11:45 Dose: 60 mg Ondansetron HCl (Zofran) 4 mg IV Q8H PRN PRN Reason: Nausea And Vomiting Oxycodone/Acetaminophen (Percocet 5/325) 1 tab PO Q6H PRN PRN Reason: Pain, Moderate (4-6) Last Admin: 09/29/17 11:45 Dose: 1 tab Physical Examination Vital signs: Vital Signs Temp Pulse Resp BP Pulse Ox 98.1 F 94 H 27 H 171/115 96 09/28/17 18:25 09/28/17 18:25 09/28/17 18:25 09/28/17 18:25 09/28/17 18:25 Results - Laboratory Findings CBC and BMP: 09/28/17 19:07 09/28/17 19:07 Abnormal lab findings: Abnormal Labs 09/28/17 09/28/17 19:07 19:07 MCH 27 L RDW 15.5 H Lymph % (Auto) 35.1 H [place] % (Auto) 8.0 H Chloride 95.8 L
[2017-09-29] MEDS: BROVANA NEBU IH SCH (20:28)
[2017-09-29] MEDS: PULMICORT IH SCH (20:28)
--- NOTE | 2017-09-29 22:13 | Consultation ---
PULMONARY CONSULTATION CONSULTING PHYSICIAN: PHILIP Vera for Dr. Lackey. REASON FOR CONSULTATION: Acute respiratory distress, acute asthma exacerbation. CHIEF COMPLAINT AND HISTORY OF PRESENT ILLNESS: The patient is a 41-year-old female known to me from past admissions, past medical history significant for morbid obesity, obstructive sleep apnea, but also chronic obstructive lung disease, also history of tobacco abuse, came into the Emergency Room complaining of about 2-3 days of increasing wheezing, increasing shortness of breath, dyspnea on exertion, nonproductive cough. 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 She tried to use her nebulizers with increasing frequency at home, but on the day of presentation, her symptoms were getting worse. She denied any actual chest pain. She denied any palpitations. She denied any fevers or chills. She denied any sick contacts. She does have about 5+-pack-year tobacco smoking history. Tells me she is cutting down on her smoking. She denied any nausea, vomiting, or overt aspiration. In the emergency room, she was evaluated and ultimately admitted with acute asthma exacerbation. She was wheezing at that time requiring BiPAP support and hence the consult. When I stopped by to see her, she was lying in bed. She was getting a breathing treatment at that time. She has been oscillating between the breathing treatment and use of the BiPAP machine. She feels that her home CPAP machine might not be working well at this point. She denies any new onset leg pain or swelling either unilaterally or bilaterally or any suggestion of venous thromboembolic events. Denied any gross or streaky hemoptysis. That is as much of the history of presentation as I have. PAST MEDICAL HISTORY: Again, significant amongst other things for a diagnosis of obstructive sleep apnea, hypertension, history of cardiomyopathy and congestive heart failure, history of arthritis, history of COPD. PAST SURGICAL HISTORY: She has had three C-sections and she has had orthopedic intervention. MEDICATIONS: She was on at the time I stopped by to see her, according to the medication administration record included the following: P.r.n. albuterol, Norvasc 10 mg p.o. daily, Zithromax 500 mg p.o. daily, Lasix 20 mg p.o. daily, Robitussin 200 mg p.o. q. 4 hours scheduled, heparin 5000 units subQ q. 12 hours, Levaquin 750 mg IV daily, loratadine 10 mg p.o. daily p.r.n., Solu-Medrol 60 mg IV q. 8 hours, Zofran 4 mg IV q. 8 hours as well as Percocet one tablet p.o. q. 6 hours p.r.n. moderate pain. ALLERGIES: IODINE, nature of this allergy is unknown. DIET: Obese lady, morbidly obese. No significant weight loss or gain since I have last seen her. Perhaps, she has gained a little bit more weight. FAMILY AND SOCIAL HISTORY: Lives in the community. About 5-pack-year tobacco smoking history. Denies current alcohol, tobacco, or illicit drug use or abuse. Family history otherwise noncontributory. REVIEW OF SYSTEMS: No loss of consciousness. No new onset seizures. No new onset focal weakness. No gross hematochezia or melena. No gross hematuria or dysuria. No hematemesis. No hemoptysis. No new onset joint pain or swelling. No new rash on her body. Denies polydipsia. Denies polyuria. Complete 13 review of systems obtained. Pertinent positives and/or negatives as in body of history above, otherwise they are noncontributory. PHYSICAL EXAMINATION: VITAL SIGNS: At presentation, she was afebrile, temperature 98.1 degrees Fahrenheit with a pulse of 94, respiratory rate 27, blood pressure 171/115. Oxygen sats 96%, inspired oxygen concentration was not recorded. She has remained afebrile. GENERAL: Middle-aged looking female, looks her stated age, normocephalic, atraumatic, talking to me in slightly interrupted sentences, in mild to moderate respiratory distress. HEAD, EYES, EARS, NOSE AND THROAT: She is anicteric. No conjunctival erythema. Oropharynx is a Mallampati #4 oropharynx. No gross jugular venous distention. Grossly, no palpable lymph nodes in the supraclavicular or submandibular lymph node chains. She does have a large neck circumference. No obvious thyromegaly. The oropharynx is moist. LUNGS: Auscultation of the lung mcintosh significant for diminished bilateral breath sounds with a prolonged expiratory phase. No actual wheezing at the time I examined her. HEART: Heart sounds 1 and 2 are heard. They were regular in rate and rhythm. No rubs, no murmurs. ABDOMEN: Soft, full, bowel sounds are positive. Mild epigastric tenderness. No palpable hepatosplenomegaly grossly. EXTREMITIES: Without overt digital clubbing or cyanosis. Trace pedal edema. Dorsalis pedis pulses are palpable bilaterally. NEUROLOGIC: The pupils were equal, round, about 3 mm, reactive to light. Extraocular muscle movements were intact. She moved all 4 extremities spontaneously. The skin was of normal turgor. She had tattoos on the skin, the exposed parts. No cellulitis, no rash. LABORATORY DATA: From my review are as follows: White cell count 9800, hemoglobin 13.3, hematocrit 41.1, platelet count 286. Serum sodium 137, potassium 4.1, chloride 96, bicarbonate 27, BUN 10, creatinine 0.7, glucose was 98. CPK within normal limits. Troponin within normal limits. Urine test was negative. No cultures. Chest x-ray has been reviewed. I have also reviewed the radiologist's interpretation and I do agree with it. No acute finding. Nonetheless, there is evidence of hyperinflation with mild flattening of the right hemidiaphragm, and she has hilar granulomas in both hilar regions, mild enlargement of the main pulmonary artery trunks. No overt cardiomegaly. No pneumothorax, no gross bony fractures. Mild interstitial edema pattern. ASSESSMENT: 1. Acute hypoxemic respiratory failure. 2. Acute chronic obstructive pulmonary disease exacerbation. 3. Morbid obesity. 4. Obstructive sleep apnea. 5. Uncontrolled hypertension. 6. History of arthritis. 7. History of cardiomyopathy. PLAN: We will continue bilevel positive air pressure ventilation therapy scheduled at bedtime p.r.n. during the day. Focus of treatment will be as acute COPD exacerbation. We will continue empiric community-acquired pneumonia therapy. I will discontinue the Zithromax at this point as it is really not adding anything to her treatment. Sputum will be sent for Gram stain, cultures and sensitivities in case she does cough up some. I will be putting her on long-acting bronchodilators as well as inhaled corticosteroids. Arterial blood gas will be gotten to determine her baseline pCO2 and pH at this point. We will continue gentle diuresis. She is going to be placed on GI prophylaxis. She is on DVT prophylaxis. A venous thromboembolic disorder workup will be done. Stat D-dimer levels will be ordered as well as bilateral lower extremity Dopplers in light of the light pedal edema. This will be plus or minus further testing. Flu and pneumonia vaccination will be addressed per protocol. Thank you very much for the consult Dr. Lackey. We will follow along and make further recommendations as picture progresses/becomes clearer. JOB# [id number] JS/JULISSA HERNDON
[2017-09-29] MEDS: TESSALON PERLES PO SCH (22:32)
[2017-09-30] MEDS: ROBITUSSIN PO SCH ×5 (03:42→18:49)
[2017-09-30] MEDS: TESSALON PERLES PO SCH ×3 (06:07→22:37)
[2017-09-30] MEDS: PERCOCET 5/325 PO PRN (06:07)
[2017-09-30] MEDS: BROVANA NEBU IH SCH ×2 (07:50→21:00)
[2017-09-30] MEDS: PULMICORT IH SCH ×2 (07:50→21:00)
--- NOTE | 2017-09-30 10:10 | Progress Note ---
<EDU GOMEZ - Last Filed: 09/30/17 14:40> Assessment and Plan Assessment and plan: Patient is a 41-year-old female with history of asthma who presented to the emergency department with shortness of breath and associated cough which is nonproductive for 24 hours prior to admission. Acute COPD exacerbation Continue IV antibiotics, nebs, supplemental oxygen and Solu-Medrol, patient is still on BiPAP Pulmonology following Nonproductive Cough Likely secondary to above, chest xray negative, Robitussin scheduled Morbid Obesity Patient counseled on weight loss Nicotine dependence Patient counselled on cessation Hypertension Patient refusing to take antihypertensives, states her doctor took her off of BP meds after her stroke DVT prophylaxis Heparin History Interval history: Patient seen and examined. She feels better today, still on BIPAP, was wheezing earlier today but not since her breathing treatment. Labs and nursing notes reviewed. Hospitalist Physical - Constitutional Vitals: Temp Pulse Resp BP Pulse Ox 98.3 F 101 H 20 153/110 100 09/30/17 07:39 09/30/17 07:39 09/30/17 07:39 09/30/17 07:39 09/30/17 07:39 General appearance: Present: no acute distress, well-nourished, obese - EENT Eyes: Present: PERRL, EOM intact ENT: hearing intact, clear oral mucosa - Neck Neck: Present: supple, normal ROM - Respiratory Respiratory effort: normal Respiratory: bilateral: diminished - Cardiovascular Rhythm: regular Heart Sounds: Present: S1 & S2 - Extremities Extremities: no ischemia, No edema - Abdominal General gastrointestinal: soft, non-tender, non-distended - Integumentary Integumentary: Present: clear, warm, dry - Psychiatric Psychiatric: appropriate mood/affect, intact judgment & insight, cooperative - Neurologic Neurologic: CNII-XII intact - Allied Health Allied health notes reviewed: nursing Results - Labs CBC & Chem 7: 09/28/17 19:07 09/28/17 19:07 Labs: Laboratory Last Values WBC 9.8 K/mm3 (4.5-11.0) 09/28/17 19:07 RBC 4.97 M/mm3 (3.65-5.03) 09/28/17 19:07 Hgb 13.3 gm/dl (10.1-14.3) 09/28/17 19:07 Hct 41.1 % (30.3-42.9) 09/28/17 19:07 MCV 83 fl (79-97) 09/28/17 19:07 MCH 27 pg (28-32) L 09/28/17 19:07 MCHC 32 % (30-34) 09/28/17 19:07 RDW 15.5 % (13.2-15.2) H 09/28/17 19:07 Plt Count 286 K/mm3 (140-440) 09/28/17 19:07 Lymph % (Auto) 35.1 % (13.4-35.0) H 09/28/17 19:07 [place] % (Auto) 8.0 % (0.0-7.3) H 09/28/17 19:07 Eos % (Auto) 2.6 % (0.0-4.3) 09/28/17 19:07 Baso % (Auto) 0.7 % (0.0-1.8) 09/28/17 19:07 Lymph # 3.4 K/mm3 (1.2-5.4) 09/28/17 19:07 [place] # 0.8 K/mm3 (0.0-0.8) 09/28/17 19:07 Eos # 0.2 K/mm3 (0.0-0.4) 09/28/17 19:07 Baso # 0.1 K/mm3 (0.0-0.1) 09/28/17 19:07 Seg Neutrophils % 53.6 % (40.0-70.0) 09/28/17 19:07 Seg Neutrophils # 5.2 K/mm3 (1.8-7.7) 09/28/17 19:07 D-Dimer < 135.00 ng/mlDDU (0-234) 09/29/17 17:38 POC ABG pH 7.390 (7.35-7.45) 09/29/17 14:46 POC ABG pCO2 43.1 (35-45) 09/29/17 14:46 POC ABG pO2 74 (80-105) L 09/29/17 14:46 POC ABG HCO3 26.1 09/29/17 14:46 POC ABG Total CO2 27 09/29/17 14:46 POC ABG O2 Sat 95 09/29/17 14:46 POC ABG Base Excess 1 09/29/17 14:46 FiO2 21 % 09/29/17 14:46 Sodium 137 mmol/L (137-145) 09/28/17 19:07 Potassium 4.1 mmol/L (3.6-5.0) 09/28/17 19:07 Chloride 95.8 mmol/L (98-107) L 09/28/17 19:07 Carbon Dioxide 27 mmol/L (22-30) 09/28/17 19:07 Anion Gap 18 mmol/L 09/28/17 19:07 BUN 10 mg/dL (7-17) 09/28/17 19:07 Creatinine 0.7 mg/dL (0.7-1.2) 09/28/17 19:07 Estimated GFR > 60 ml/min 09/28/17 19:07 BUN/Creatinine Ratio 14 % 09/28/17 19:07 Glucose 98 mg/dL (65-100) 09/28/17 19:07 Calcium 9.2 mg/dL (8.4-10.2) 09/28/17 19:07 Total Creatine Kinase 58 units/L (30-135) 09/28/17 23:32 Troponin T < 0.010 ng/mL (0.00-0.029) 09/28/17 23:32 HCG, Qual Negative (Negative) 09/28/17 19:07 <BRITTANY ÁLVAREZ - Last Filed: 09/30/17 15:57> Assessment and Plan Assessment and plan: I saw and evaluated the patient. I agree with the findings and the plan of care as documented in the Nurse Practitioner's~note, with the following corrections and additions. Patient with sleep apnea, COPD exacerbation. Continue solumedrol, BIPAP. Pulmonology following. Hospitalist Physical - Constitutional Vitals: Temp Pulse Resp BP Pulse Ox 97.8 F 99 H 20 124/98 100 09/30/17 11:17 09/30/17 11:17 09/30/17 11:17 09/30/17 11:17 09/30/17 11:17 Results - Labs CBC & Chem 7: 09/28/17 19:07 09/28/17 19:07 Labs: Laboratory Last Values WBC 9.8 K/mm3 (4.5-11.0) 09/28/17 19:07 RBC 4.97 M/mm3 (3.65-5.03) 09/28/17 19:07 Hgb 13.3 gm/dl (10.1-14.3) 09/28/17 19:07 Hct 41.1 % (30.3-42.9) 09/28/17 19:07 MCV 83 fl (79-97) 09/28/17 19:07 MCH 27 pg (28-32) L 09/28/17 19:07 MCHC 32 % (30-34) 09/28/17 19:07 RDW 15.5 % (13.2-15.2) H 09/28/17 19:07 Plt Count 286 K/mm3 (140-440) 09/28/17 19:07 Lymph % (Auto) 35.1 % (13.4-35.0) H 09/28/17 19:07 [place] % (Auto) 8.0 % (0.0-7.3) H 09/28/17 19:07 Eos % (Auto) 2.6 % (0.0-4.3) 09/28/17 19:07 Baso % (Auto) 0.7 % (0.0-1.8) 09/28/17 19:07 Lymph # 3.4 K/mm3 (1.2-5.4) 09/28/17 19:07 [place] # 0.8 K/mm3 (0.0-0.8) 09/28/17 19:07 Eos # 0.2 K/mm3 (0.0-0.4) 09/28/17 19:07 Baso # 0.1 K/mm3 (0.0-0.1) 09/28/17 19:07 Seg Neutrophils % 53.6 % (40.0-70.0) 09/28/17 19:07 Seg Neutrophils # 5.2 K/mm3 (1.8-7.7) 09/28/17 19:07 D-Dimer < 135.00 ng/mlDDU (0-234) 09/29/17 17:38 POC ABG pH 7.390 (7.35-7.45) 09/29/17 14:46 POC ABG pCO2 43.1 (35-45) 09/29/17 14:46 POC ABG pO2 74 (80-105) L 09/29/17 14:46 POC ABG HCO3 26.1 09/29/17 14:46 POC ABG Total CO2 27 09/29/17 14:46 POC ABG O2 Sat 95 09/29/17 14:46 POC ABG Base Excess 1 09/29/17 14:46 FiO2 21 % 09/29/17 14:46 Sodium 137 mmol/L (137-145) 09/28/17 19:07 Potassium 4.1 mmol/L (3.6-5.0) 09/28/17 19:07 Chloride 95.8 mmol/L (98-107) L 09/28/17 19:07 Carbon Dioxide 27 mmol/L (22-30) 09/28/17 19:07 Anion Gap 18 mmol/L 09/28/17 19:07 BUN 10 mg/dL (7-17) 09/28/17 19:07 Creatinine 0.7 mg/dL (0.7-1.2) 09/28/17 19:07 Estimated GFR > 60 ml/min 09/28/17 19:07 BUN/Creatinine Ratio 14 % 09/28/17 19:07 Glucose 98 mg/dL (65-100) 09/28/17 19:07 Calcium 9.2 mg/dL (8.4-10.2) 09/28/17 19:07 Total Creatine Kinase 58 units/L (30-135) 09/28/17 23:32 Troponin T < 0.010 ng/mL (0.00-0.029) 09/28/17 23:32 HCG, Qual Negative (Negative) 09/28/17 19:07
[2017-09-30] MEDS: LEVAQUIN 750MG/150ML 750 MG/150 ML BAG IV SCH (10:45)
[2017-09-30] MEDS: NORVASC PO SCH ×2 (10:45→10:46)
[2017-09-30] MEDS: ZITHROMAX PO SCH (10:46)
[2017-09-30] MEDS: LASIX PO SCH (10:46)
[2017-09-30] MEDS: HEPARIN SUB-Q SCH ×2 (10:47→22:37)
--- NOTE | 2017-09-30 19:14 | Progress Note ---
Assessment and Plan Patient alert, awake. Resting on room air. O2 saturation 98%. - Patient Problems (1) Status asthmaticus Current Visit: Yes Status: Acute Plan to address problem: O2 2 litres via nasal canula. Albuterol aerosol treatments q 6 hours. Continue I/V solumedral. Continue S/C Heparin. (2) Morbid obesity Current Visit: Yes Status: Chronic Plan to address problem: Weight reduction diet. (3) Sleep apnea Current Visit: Yes Status: Chronic Plan to address problem: Continue BIPAP 16/6, rate 16, FIO2 35%. (4) Acute bronchitis Current Visit: No Status: Acute Plan to address problem: Continue Levaquin. Subjective Date of service: 09/30/17 Interval history: Patient alert, awake. Resting on room air. O2 saturation 98%. Objective Vital Signs - 12hr 09/30/17 09/30/17 09/30/17 07:39 07:50 08:10 Temperature 98.3 F Pulse Rate 101 H Pulse Rate [ 86 90 Anterior Bilateral Throughout] Respiratory 20 Rate Respiratory 22 20 Rate [Anterior Bilateral Throughout] Blood Pressure 153/110 O2 Sat by Pulse 100 Oximetry 09/30/17 09/30/17 09/30/17 08:24 11:17 15:24 Temperature 97.7 F 97.8 F 97.7 F Pulse Rate 90 99 H 79 Pulse Rate [ Anterior Bilateral Throughout] Respiratory 20 20 20 Rate Respiratory Rate [Anterior Bilateral Throughout] Blood Pressure 146/94 124/98 146/95 O2 Sat by Pulse 97 100 100 Oximetry Constitutional: no acute distress, alert Eyes: non-icteric ENT: oropharynx moist Ascultation: Bilateral: diminished breath sounds, wheezes Cardiovascular: regular rate and rhythm Gastrointestinal: normoactive bowel sounds, soft, non-tender Integumentary: normal Extremities: no cyanosis, no edema Neurologic: normal mental status, non-focal exam, pupils equal and round, CN II- XII normal Psychiatric: mood appropriate CBC and BMP: 09/28/17 19:07 09/28/17 19:07 ABG, PT/INR, D-dimer: ABG POC ABG pH 7.390 (7.35-7.45) 09/29/17 14:46 POC ABG pCO2 43.1 (35-45) 09/29/17 14:46 POC ABG pO2 74 (80-105) L 09/29/17 14:46 POC ABG HCO3 26.1 09/29/17 14:46 POC ABG Total CO2 27 09/29/17 14:46 POC ABG O2 Sat 95 09/29/17 14:46 PT/INR, D-dimer D-Dimer < 135.00 ng/mlDDU (0-234) 09/29/17 17:38 Abnormal lab findings: Abnormal Labs 09/28/17 09/28/17 09/29/17 19:07 19:07 14:46 MCH 27 L RDW 15.5 H Lymph % (Auto) 35.1 H [place] % (Auto) 8.0 H POC ABG pO2 74 L Chloride 95.8 L Chest x-ray: report reviewed (No acute pulmonary findings.), image reviewed
[2017-10-01] MEDS: ROBITUSSIN PO SCH ×6 (00:23→20:25)
[2017-10-01] MEDS: PERCOCET 5/325 PO PRN ×4 (00:45→19:10)
[2017-10-01] MEDS ORDERED: COLACE PO PRN (05:22)
[2017-10-01] MEDS: TESSALON PERLES PO SCH ×2 (06:21→14:31)
[2017-10-01] MEDS: PULMICORT IH SCH ×2 (07:44→20:10)
[2017-10-01] MEDS: BROVANA NEBU IH SCH ×2 (07:44→20:10)
[2017-10-01] MEDS: HEPARIN SUB-Q SCH (10:18)
[2017-10-01] MEDS: NORVASC PO SCH (10:18)
[2017-10-01] MEDS: LASIX PO SCH (10:18)
[2017-10-01] MEDS: ZITHROMAX PO SCH (10:18)
[2017-10-01] MEDS: LEVAQUIN 750MG/150ML 750 MG/150 ML BAG IV SCH (10:19)
--- NOTE | 2017-10-01 10:30 | Progress Note ---
<EDU GOMEZ - Last Filed: 10/01/17 13:22> Assessment and Plan Assessment and plan: Patient is a 41-year-old female with history of asthma who presented to the emergency department with shortness of breath and associated cough which is nonproductive for 24 hours prior to admission. Acute COPD exacerbation Continue IV antibiotics, nebs, supplemental oxygen and Solu-Medrol, patient is still on BiPAP Pulmonology following Nonproductive Cough Likely secondary to above, chest xray negative, Robitussin scheduled Morbid Obesity Patient counseled on weight loss Nicotine dependence Patient counselled on cessation Hypertension Patient refusing to take antihypertensives, states her doctor took her off of BP meds after her stroke DVT prophylaxis Heparin History Interval history: Patient seen and examined. Still on BIPAP, still SOB, more with exertion. Labs and nursing notes reviewed. Hospitalist Physical - Constitutional Vitals: Temp Pulse Resp BP Pulse Ox 97.7 F 74 18 141/88 96 10/01/17 07:50 10/01/17 08:00 10/01/17 08:00 10/01/17 07:50 10/01/17 10:00 General appearance: Present: no acute distress, well-nourished, obese - EENT Eyes: Present: PERRL, EOM intact ENT: hearing intact, clear oral mucosa - Neck Neck: Present: supple, normal ROM - Respiratory Respiratory effort: normal Respiratory: bilateral: diminished - Cardiovascular Rhythm: regular Heart Sounds: Present: S1 & S2 - Extremities Extremities: no ischemia, No edema - Abdominal General gastrointestinal: soft, non-tender, non-distended - Integumentary Integumentary: Present: clear, warm, dry - Psychiatric Psychiatric: appropriate mood/affect, intact judgment & insight, cooperative - Neurologic Neurologic: CNII-XII intact, moves all extremities - Allied Health Allied health notes reviewed: nursing Results - Labs CBC & Chem 7: 09/28/17 19:07 09/28/17 19:07 Labs: Laboratory Last Values WBC 9.8 K/mm3 (4.5-11.0) 09/28/17 19:07 RBC 4.97 M/mm3 (3.65-5.03) 09/28/17 19:07 Hgb 13.3 gm/dl (10.1-14.3) 09/28/17 19:07 Hct 41.1 % (30.3-42.9) 09/28/17 19:07 MCV 83 fl (79-97) 09/28/17 19:07 MCH 27 pg (28-32) L 09/28/17 19:07 MCHC 32 % (30-34) 09/28/17 19:07 RDW 15.5 % (13.2-15.2) H 09/28/17 19:07 Plt Count 286 K/mm3 (140-440) 09/28/17 19:07 Lymph % (Auto) 35.1 % (13.4-35.0) H 09/28/17 19:07 [place] % (Auto) 8.0 % (0.0-7.3) H 09/28/17 19:07 Eos % (Auto) 2.6 % (0.0-4.3) 09/28/17 19:07 Baso % (Auto) 0.7 % (0.0-1.8) 09/28/17 19:07 Lymph # 3.4 K/mm3 (1.2-5.4) 09/28/17 19:07 [place] # 0.8 K/mm3 (0.0-0.8) 09/28/17 19:07 Eos # 0.2 K/mm3 (0.0-0.4) 09/28/17 19:07 Baso # 0.1 K/mm3 (0.0-0.1) 09/28/17 19:07 Seg Neutrophils % 53.6 % (40.0-70.0) 09/28/17 19:07 Seg Neutrophils # 5.2 K/mm3 (1.8-7.7) 09/28/17 19:07 D-Dimer < 135.00 ng/mlDDU (0-234) 09/29/17 17:38 POC ABG pH 7.390 (7.35-7.45) 09/29/17 14:46 POC ABG pCO2 43.1 (35-45) 09/29/17 14:46 POC ABG pO2 74 (80-105) L 09/29/17 14:46 POC ABG HCO3 26.1 09/29/17 14:46 POC ABG Total CO2 27 09/29/17 14:46 POC ABG O2 Sat 95 09/29/17 14:46 POC ABG Base Excess 1 09/29/17 14:46 FiO2 21 % 09/29/17 14:46 Sodium 137 mmol/L (137-145) 09/28/17 19:07 Potassium 4.1 mmol/L (3.6-5.0) 09/28/17 19:07 Chloride 95.8 mmol/L (98-107) L 09/28/17 19:07 Carbon Dioxide 27 mmol/L (22-30) 09/28/17 19:07 Anion Gap 18 mmol/L 09/28/17 19:07 BUN 10 mg/dL (7-17) 09/28/17 19:07 Creatinine 0.7 mg/dL (0.7-1.2) 09/28/17 19:07 Estimated GFR > 60 ml/min 09/28/17 19:07 BUN/Creatinine Ratio 14 % 09/28/17 19:07 Glucose 98 mg/dL (65-100) 09/28/17 19:07 Calcium 9.2 mg/dL (8.4-10.2) 09/28/17 19:07 Total Creatine Kinase 58 units/L (30-135) 09/28/17 23:32 Troponin T < 0.010 ng/mL (0.00-0.029) 09/28/17 23:32 HCG, Qual Negative (Negative) 09/28/17 19:07 <BRITTANY ÁLVAREZ - Last Filed: 10/01/17 18:40> Assessment and Plan Assessment and plan: I saw and evaluated the patient. I agree with the findings and the plan of care as documented in the Nurse Practitioner's~note, with the following corrections and additions. Patient with acute on chronic respiratory failure with COPD exacerbation, sleep apnea. Pulm following. Hospitalist Physical - Constitutional Vitals: Temp Pulse Resp BP Pulse Ox 97.7 F 74 19 141/88 100 10/01/17 07:50 10/01/17 08:00 10/01/17 11:33 10/01/17 07:50 10/01/17 11:33 Results - Labs CBC & Chem 7: 09/28/17 19:07 09/28/17 19:07 Labs: Laboratory Last Values WBC 9.8 K/mm3 (4.5-11.0) 09/28/17 19:07 RBC 4.97 M/mm3 (3.65-5.03) 09/28/17 19:07 Hgb 13.3 gm/dl (10.1-14.3) 09/28/17 19:07 Hct 41.1 % (30.3-42.9) 09/28/17 19:07 MCV 83 fl (79-97) 09/28/17 19:07 MCH 27 pg (28-32) L 09/28/17 19:07 MCHC 32 % (30-34) 09/28/17 19:07 RDW 15.5 % (13.2-15.2) H 09/28/17 19:07 Plt Count 286 K/mm3 (140-440) 09/28/17 19:07 Lymph % (Auto) 35.1 % (13.4-35.0) H 09/28/17 19:07 [place] % (Auto) 8.0 % (0.0-7.3) H 09/28/17 19:07 Eos % (Auto) 2.6 % (0.0-4.3) 09/28/17 19:07 Baso % (Auto) 0.7 % (0.0-1.8) 09/28/17 19:07 Lymph # 3.4 K/mm3 (1.2-5.4) 09/28/17 19:07 [place] # 0.8 K/mm3 (0.0-0.8) 09/28/17 19:07 Eos # 0.2 K/mm3 (0.0-0.4) 09/28/17 19:07 Baso # 0.1 K/mm3 (0.0-0.1) 09/28/17 19:07 Seg Neutrophils % 53.6 % (40.0-70.0) 09/28/17 19:07 Seg Neutrophils # 5.2 K/mm3 (1.8-7.7) 09/28/17 19:07 D-Dimer < 135.00 ng/mlDDU (0-234) 09/29/17 17:38 POC ABG pH 7.390 (7.35-7.45) 09/29/17 14:46 POC ABG pCO2 43.1 (35-45) 09/29/17 14:46 POC ABG pO2 74 (80-105) L 09/29/17 14:46 POC ABG HCO3 26.1 09/29/17 14:46 POC ABG Total CO2 27 09/29/17 14:46 POC ABG O2 Sat 95 09/29/17 14:46 POC ABG Base Excess 1 09/29/17 14:46 FiO2 21 % 09/29/17 14:46 Sodium 137 mmol/L (137-145) 09/28/17 19:07 Potassium 4.1 mmol/L (3.6-5.0) 09/28/17 19:07 Chloride 95.8 mmol/L (98-107) L 09/28/17 19:07 Carbon Dioxide 27 mmol/L (22-30) 09/28/17 19:07 Anion Gap 18 mmol/L 09/28/17 19:07 BUN 10 mg/dL (7-17) 09/28/17 19:07 Creatinine 0.7 mg/dL (0.7-1.2) 09/28/17 19:07 Estimated GFR > 60 ml/min 09/28/17 19:07 BUN/Creatinine Ratio 14 % 09/28/17 19:07 Glucose 98 mg/dL (65-100) 09/28/17 19:07 Hemoglobin A1c 6.4 % (4-6) H 10/01/17 13:15 Calcium 9.2 mg/dL (8.4-10.2) 09/28/17 19:07 Total Creatine Kinase 58 units/L (30-135) 09/28/17 23:32 Troponin T < 0.010 ng/mL (0.00-0.029) 09/28/17 23:32 HCG, Qual Negative (Negative) 09/28/17 19:07
--- NOTE | 2017-10-01 18:27 | Progress Note ---
Assessment and Plan atient alert, awake. Resting on room air. O2 saturation 98%.Still complaining shortness of breath on exertion. - Patient Problems (1) Morbid obesity Current Visit: Yes Status: Chronic (2) Sleep apnea Current Visit: Yes Status: Chronic Plan to address problem: Continue BIPAP 16/6, rate 16, FIO2 35%. (3) Acute bronchitis Current Visit: No Status: Acute Plan to address problem: Continue Levaquin. (4) COPD exacerbation Current Visit: Yes Status: Acute Plan to address problem: O2 2 litres via nasal canula. Albuterol aerosol treatments q 6 hours. Continue I/V solumedral. Continue S/C Heparin. Subjective Date of service: 10/01/17 Interval history: Patient alert, awake. Resting on room air. O2 saturation 98%.Still complaining shortness of breath on exertion. Objective Vital Signs - 12hr 10/01/17 10/01/17 10/01/17 07:50 08:00 10:00 Temperature 97.7 F Pulse Rate 73 Pulse Rate [ 73 74 Anterior Right Lower Lobe] Respiratory 18 Rate Respiratory 18 18 Rate [Anterior Right Lower Lobe] Blood Pressure 141/88 O2 Sat by Pulse 96 96 Oximetry 10/01/17 11:33 Temperature Pulse Rate Pulse Rate [ Anterior Right Lower Lobe] Respiratory 19 Rate Respiratory Rate [Anterior Right Lower Lobe] Blood Pressure O2 Sat by Pulse 100 Oximetry Constitutional: no acute distress, alert Eyes: non-icteric ENT: oropharynx moist Neck: supple, no lymphadenopathy Ascultation: Bilateral: diminished breath sounds, wheezes Cardiovascular: regular rate and rhythm Gastrointestinal: normoactive bowel sounds, soft, non-tender Integumentary: normal Extremities: no cyanosis, no edema Neurologic: normal mental status, non-focal exam, pupils equal and round, CN II- XII normal Psychiatric: mood appropriate CBC and BMP: 09/28/17 19:07 09/28/17 19:07 ABG, PT/INR, D-dimer: ABG POC ABG pH 7.390 (7.35-7.45) 09/29/17 14:46 POC ABG pCO2 43.1 (35-45) 09/29/17 14:46 POC ABG pO2 74 (80-105) L 09/29/17 14:46 POC ABG HCO3 26.1 09/29/17 14:46 POC ABG Total CO2 27 09/29/17 14:46 POC ABG O2 Sat 95 09/29/17 14:46 PT/INR, D-dimer D-Dimer < 135.00 ng/mlDDU (0-234) 09/29/17 17:38 Abnormal lab findings: Abnormal Labs 09/28/17 09/28/17 09/29/17 19:07 19:07 14:46 MCH 27 L RDW 15.5 H Lymph % (Auto) 35.1 H [place] % (Auto) 8.0 H POC ABG pO2 74 L Chloride 95.8 L Hemoglobin A1c 10/01/17 13:15 MCH RDW Lymph % (Auto) [place] % (Auto) POC ABG pO2 Chloride Hemoglobin A1c 6.4 H
[2017-10-02] MEDS: ROBITUSSIN PO SCH ×7 (00:04→23:53)
[2017-10-02] MEDS: TESSALON PERLES PO SCH ×4 (00:05→21:57)
[2017-10-02] MEDS: HEPARIN SUB-Q SCH ×3 (00:05→21:57)
--- NOTE | 2017-10-02 09:33 | Progress Note ---
Assessment and Plan Assessment and plan: Patient is a 41-year-old female with history of asthma, COPD who presented to the emergency department with shortness of breath and associated cough which is nonproductive for 24 hours prior to admission. Acute COPD exacerbation Continue IV antibiotics, nebs, supplemental oxygen and Solu-Medrol, patient is still on BiPAP Pulmonology following Asthma exacerbation. Treatment as above. Acute bronchitis. Acute respiratory failure due to COPD exacerbation. On BIPAP, supplemental Oxygen. Pulm following Morbid Obesity Patient counseled on weight loss Nicotine dependence Patient counselled on cessation Hypertension She said was taken off Amlodipine. BP stable DVT prophylaxis Heparin subcut History Interval history: Still having shortness of breath, No fever Hospitalist Physical - Physical exam Narrative exam: Gen appearance: Not in acute distress, morbidly obese, lying in bed, HEENT:Normocephalic, atraumatic Neck:supple, no JVD Lungs: Decreased breath sounds bilaterally, bilat rhonchi Heart: S1 and S2 regular, no murmurs, rubs or gallop Abdomen: soft, non tender, non distended, normal bowel sounds Ext: No edema, no clubbing, no cyanosis. Neuro: Awake, alert, oriented x 3, moves all extremities. Psych:Normal mood - Constitutional Vitals: Temp Pulse Resp BP Pulse Ox 97.9 F 90 18 143/79 100 10/02/17 08:17 10/01/17 20:43 10/02/17 08:17 10/02/17 08:17 10/01/17 22:00 General appearance: Present: no acute distress, obese Results - Labs CBC & Chem 7: 09/28/17 19:07 09/28/17 19:07 Labs: Laboratory Last Values WBC 9.8 K/mm3 (4.5-11.0) 09/28/17 19:07 RBC 4.97 M/mm3 (3.65-5.03) 09/28/17 19:07 Hgb 13.3 gm/dl (10.1-14.3) 09/28/17 19:07 Hct 41.1 % (30.3-42.9) 09/28/17 19:07 MCV 83 fl (79-97) 09/28/17 19:07 MCH 27 pg (28-32) L 09/28/17 19:07 MCHC 32 % (30-34) 09/28/17 19:07 RDW 15.5 % (13.2-15.2) H 09/28/17 19:07 Plt Count 286 K/mm3 (140-440) 09/28/17 19:07 Lymph % (Auto) 35.1 % (13.4-35.0) H 09/28/17 19:07 [place] % (Auto) 8.0 % (0.0-7.3) H 09/28/17 19:07 Eos % (Auto) 2.6 % (0.0-4.3) 09/28/17 19:07 Baso % (Auto) 0.7 % (0.0-1.8) 09/28/17 19:07 Lymph # 3.4 K/mm3 (1.2-5.4) 09/28/17 19:07 [place] # 0.8 K/mm3 (0.0-0.8) 09/28/17 19:07 Eos # 0.2 K/mm3 (0.0-0.4) 09/28/17 19:07 Baso # 0.1 K/mm3 (0.0-0.1) 09/28/17 19:07 Seg Neutrophils % 53.6 % (40.0-70.0) 09/28/17 19:07 Seg Neutrophils # 5.2 K/mm3 (1.8-7.7) 09/28/17 19:07 D-Dimer < 135.00 ng/mlDDU (0-234) 09/29/17 17:38 POC ABG pH 7.390 (7.35-7.45) 09/29/17 14:46 POC ABG pCO2 43.1 (35-45) 09/29/17 14:46 POC ABG pO2 74 (80-105) L 09/29/17 14:46 POC ABG HCO3 26.1 09/29/17 14:46 POC ABG Total CO2 27 09/29/17 14:46 POC ABG O2 Sat 95 09/29/17 14:46 POC ABG Base Excess 1 09/29/17 14:46 FiO2 21 % 09/29/17 14:46 Sodium 137 mmol/L (137-145) 09/28/17 19:07 Potassium 4.1 mmol/L (3.6-5.0) 09/28/17 19:07 Chloride 95.8 mmol/L (98-107) L 09/28/17 19:07 Carbon Dioxide 27 mmol/L (22-30) 09/28/17 19:07 Anion Gap 18 mmol/L 09/28/17 19:07 BUN 10 mg/dL (7-17) 09/28/17 19:07 Creatinine 0.7 mg/dL (0.7-1.2) 09/28/17 19:07 Estimated GFR > 60 ml/min 09/28/17 19:07 BUN/Creatinine Ratio 14 % 09/28/17 19:07 Glucose 98 mg/dL (65-100) 09/28/17 19:07 Hemoglobin A1c 6.4 % (4-6) H 10/01/17 13:15 Calcium 9.2 mg/dL (8.4-10.2) 09/28/17 19:07 Total Creatine Kinase 58 units/L (30-135) 09/28/17 23:32 Troponin T < 0.010 ng/mL (0.00-0.029) 09/28/17 23:32 HCG, Qual Negative (Negative) 09/28/17 19:07
--- NOTE | 2017-10-02 10:14 | Progress Note ---
Assessment and Plan Acute COPD exacerbation Acute on chronic hypoxic respiratory failure due to COPD exacerbation. Morbid Obesity Nicotine dependence/Tobacco abuse disorder Hypertension Subjective Date of service: 10/02/17 Principal diagnosis: respiratory insufficiency, COPD with AE Interval history: Patient is seen today for: Acute on Chronic Hypercapnic Hypoxemic Resp Failure; COPD with AE; Morbid Obesity Seen and examined at bedside; 24hour events reviewed; nursing and respiratory care staff consulted; no adverse overnight events reported to me; Objective Vital Signs - 12hr 10/02/17 08:17 Temperature 97.9 F Respiratory 18 Rate Blood Pressure 143/79 Constitutional: no acute distress, alert Eyes: non-icteric ENT: oropharynx moist Neck: supple, no lymphadenopathy Ascultation: Bilateral: diminished breath sounds, wheezes Cardiovascular: regular rate and rhythm Gastrointestinal: normoactive bowel sounds, soft, non-tender Integumentary: normal Extremities: no cyanosis, no edema Neurologic: normal mental status, non-focal exam, pupils equal and round, CN II- XII normal Psychiatric: mood appropriate CBC and BMP: 10/05/17 07:31 10/05/17 07:31 ABG, PT/INR, D-dimer: ABG POC ABG pH 7.390 (7.35-7.45) 09/29/17 14:46 POC ABG pCO2 43.1 (35-45) 09/29/17 14:46 POC ABG pO2 74 (80-105) L 09/29/17 14:46 POC ABG HCO3 26.1 09/29/17 14:46 POC ABG Total CO2 27 09/29/17 14:46 POC ABG O2 Sat 95 09/29/17 14:46 PT/INR, D-dimer D-Dimer < 135.00 ng/mlDDU (0-234) 09/29/17 17:38 Abnormal lab findings: Abnormal Labs 09/28/17 09/28/17 09/29/17 19:07 19:07 14:46 MCH 27 L RDW 15.5 H Lymph % (Auto) 35.1 H [place] % (Auto) 8.0 H POC ABG pO2 74 L Chloride 95.8 L Hemoglobin A1c 10/01/17 13:15 MCH RDW Lymph % (Auto) [place] % (Auto) POC ABG pO2 Chloride Hemoglobin A1c 6.4 H
[2017-10-02] MEDS: LASIX PO SCH (10:52)
[2017-10-02] MEDS: LEVAQUIN PO SCH (10:53)
[2017-10-02] MEDS: BROVANA NEBU IH SCH ×2 (11:05→20:42)
[2017-10-02] MEDS: PULMICORT IH SCH ×2 (11:05→20:42)
[2017-10-02] MEDS: ZITHROMAX PO SCH (11:10)
[2017-10-02] MEDS: COLACE PO SCH ×2 (12:26→21:57)
[2017-10-02] MEDS: PERCOCET 5/325 PO PRN (17:28)
[2017-10-03] MEDS: PROVENTIL IH PRN (00:02)
[2017-10-03] MEDS: ROBITUSSIN PO SCH ×5 (03:37→21:26)
[2017-10-03] MEDS: TESSALON PERLES PO SCH ×3 (06:30→22:21)
[2017-10-03] MEDS: BROVANA NEBU IH SCH ×3 (07:38→19:10)
[2017-10-03] MEDS: PULMICORT IH SCH ×3 (07:38→19:11)
[2017-10-03] MEDS: PERCOCET 5/325 PO PRN ×2 (07:47→21:46)
--- NOTE | 2017-10-03 09:50 | Progress Note ---
Assessment and Plan Assessment and plan: Patient is a 41-year-old female with history of asthma, COPD who presented to the emergency department with shortness of breath and associated cough which is nonproductive for 24 hours prior to admission. Acute COPD exacerbation Continue IV antibiotics, nebs, supplemental oxygen and Solu-Medrol, patient is currently on high flow Oxygen. Not on BiPAP Pulmonology following Asthma exacerbation. Treatment as above. Acute bronchitis. Continue Levaquin. Acute respiratory failure due to COPD exacerbation. On BIPAP, supplemental Oxygen. Pulm following Morbid Obesity Patient counseled on weight loss Nicotine dependence Patient counselled on cessation Hypertension She said was taken off Amlodipine. BP stable DVT prophylaxis Heparin subcut History Interval history: Still having shortness of breath, No fever Hospitalist Physical - Physical exam Narrative exam: Gen appearance: Not in acute distress, morbidly obese, lying in bed, HEENT:Normocephalic, atraumatic Neck:supple, no JVD Lungs: Decreased breath sounds bilaterally, bilat rhonchi Heart: S1 and S2 regular, no murmurs, rubs or gallop Abdomen: soft, non tender, non distended, normal bowel sounds Ext: No edema, no clubbing, no cyanosis. Neuro: Awake, alert, oriented x 3, moves all extremities. Psych:Normal mood - Constitutional Vitals: Temp Pulse Resp BP Pulse Ox 98.2 F 86 18 138/90 95 10/02/17 23:55 10/03/17 07:59 10/03/17 07:59 10/02/17 23:55 10/03/17 07:58 General appearance: Present: no acute distress, obese Results - Labs CBC & Chem 7: 09/28/17 19:07 09/28/17 19:07 Labs: Laboratory Last Values WBC 9.8 K/mm3 (4.5-11.0) 09/28/17 19:07 RBC 4.97 M/mm3 (3.65-5.03) 09/28/17 19:07 Hgb 13.3 gm/dl (10.1-14.3) 09/28/17 19:07 Hct 41.1 % (30.3-42.9) 09/28/17 19:07 MCV 83 fl (79-97) 09/28/17 19:07 MCH 27 pg (28-32) L 09/28/17 19:07 MCHC 32 % (30-34) 09/28/17 19:07 RDW 15.5 % (13.2-15.2) H 09/28/17 19:07 Plt Count 286 K/mm3 (140-440) 09/28/17 19:07 Lymph % (Auto) 35.1 % (13.4-35.0) H 09/28/17 19:07 [place] % (Auto) 8.0 % (0.0-7.3) H 09/28/17 19:07 Eos % (Auto) 2.6 % (0.0-4.3) 09/28/17 19:07 Baso % (Auto) 0.7 % (0.0-1.8) 09/28/17 19:07 Lymph # 3.4 K/mm3 (1.2-5.4) 09/28/17 19:07 [place] # 0.8 K/mm3 (0.0-0.8) 09/28/17 19:07 Eos # 0.2 K/mm3 (0.0-0.4) 09/28/17 19:07 Baso # 0.1 K/mm3 (0.0-0.1) 09/28/17 19:07 Seg Neutrophils % 53.6 % (40.0-70.0) 09/28/17 19:07 Seg Neutrophils # 5.2 K/mm3 (1.8-7.7) 09/28/17 19:07 D-Dimer < 135.00 ng/mlDDU (0-234) 09/29/17 17:38 POC ABG pH 7.390 (7.35-7.45) 09/29/17 14:46 POC ABG pCO2 43.1 (35-45) 09/29/17 14:46 POC ABG pO2 74 (80-105) L 09/29/17 14:46 POC ABG HCO3 26.1 09/29/17 14:46 POC ABG Total CO2 27 09/29/17 14:46 POC ABG O2 Sat 95 09/29/17 14:46 POC ABG Base Excess 1 09/29/17 14:46 FiO2 21 % 09/29/17 14:46 Sodium 137 mmol/L (137-145) 09/28/17 19:07 Potassium 4.1 mmol/L (3.6-5.0) 09/28/17 19:07 Chloride 95.8 mmol/L (98-107) L 09/28/17 19:07 Carbon Dioxide 27 mmol/L (22-30) 09/28/17 19:07 Anion Gap 18 mmol/L 09/28/17 19:07 BUN 10 mg/dL (7-17) 09/28/17 19:07 Creatinine 0.7 mg/dL (0.7-1.2) 09/28/17 19:07 Estimated GFR > 60 ml/min 09/28/17 19:07 BUN/Creatinine Ratio 14 % 09/28/17 19:07 Glucose 98 mg/dL (65-100) 09/28/17 19:07 Hemoglobin A1c 6.4 % (4-6) H 10/01/17 13:15 Calcium 9.2 mg/dL (8.4-10.2) 09/28/17 19:07 Total Creatine Kinase 58 units/L (30-135) 09/28/17 23:32 Troponin T < 0.010 ng/mL (0.00-0.029) 09/28/17 23:32 HCG, Qual Negative (Negative) 09/28/17 19:07
[2017-10-03] MEDS: HEPARIN SUB-Q SCH ×2 (10:45→21:47)
[2017-10-03] MEDS: COLACE PO SCH ×2 (10:45→21:47)
[2017-10-03] MEDS: LASIX PO SCH (10:45)
[2017-10-03] MEDS: LEVAQUIN PO SCH (10:45)
--- NOTE | 2017-10-03 13:30 | Progress Note ---
Assessment and Plan Acute hypoxemic respiratory failure. Acute chronic obstructive pulmonary disease exacerbation. Morbid obesity. Obstructive sleep apnea. Uncontrolled hypertension. History of arthritis. History of cardiomyopathy. Subjective Date of service: 10/03/17 Principal diagnosis: Acute on Chronic Hypercapnic Hypoxemic Resp Failure; COPD with AE Interval history: Patient is seen today for: Acute on Chronic Hypercapnic Hypoxemic Resp Failure; COPD with AE; Morbid Obesity Seen and examined at bedside; 24hour events reviewed; nursing and respiratory care staff consulted; no adverse overnight events reported to me; Objective Vital Signs - 12hr 10/03/17 10/03/17 10/03/17 07:47 07:50 07:58 Temperature Pulse Rate Pulse Rate [ 85 Posterior Right Upper Lobe] Respiratory 18 Rate Respiratory 18 Rate [Posterior Right Upper Lobe] Blood Pressure [Left] O2 Sat by Pulse 95 Oximetry 10/03/17 10/03/17 10/03/17 07:59 08:00 10:00 Temperature 97.4 F L Pulse Rate 73 Pulse Rate [ 86 Posterior Right Upper Lobe] Respiratory 20 Rate Respiratory 18 Rate [Posterior Right Upper Lobe] Blood Pressure 154/96 [Left] O2 Sat by Pulse 97 100 Oximetry 10/03/17 10/03/17 11:19 12:46 Temperature Pulse Rate Pulse Rate [ Posterior Right Upper Lobe] Respiratory Rate Respiratory Rate [Posterior Right Upper Lobe] Blood Pressure [Left] O2 Sat by Pulse 98 100 Oximetry Constitutional: no acute distress, alert Eyes: non-icteric ENT: oropharynx moist Neck: supple, no lymphadenopathy Ascultation: Bilateral: diminished breath sounds, wheezes Cardiovascular: regular rate and rhythm Gastrointestinal: normoactive bowel sounds, soft, non-tender Integumentary: normal Extremities: no cyanosis, no edema Neurologic: normal mental status, non-focal exam, pupils equal and round, CN II- XII normal Psychiatric: mood appropriate CBC and BMP: 09/28/17 19:07 09/28/17 19:07 ABG, PT/INR, D-dimer: ABG POC ABG pH 7.390 (7.35-7.45) 09/29/17 14:46 POC ABG pCO2 43.1 (35-45) 09/29/17 14:46 POC ABG pO2 74 (80-105) L 09/29/17 14:46 POC ABG HCO3 26.1 09/29/17 14:46 POC ABG Total CO2 27 09/29/17 14:46 POC ABG O2 Sat 95 09/29/17 14:46 PT/INR, D-dimer D-Dimer < 135.00 ng/mlDDU (0-234) 09/29/17 17:38 Abnormal lab findings: Abnormal Labs 09/28/17 09/28/17 09/29/17 19:07 19:07 14:46 MCH 27 L RDW 15.5 H Lymph % (Auto) 35.1 H [place] % (Auto) 8.0 H POC ABG pO2 74 L Chloride 95.8 L Hemoglobin A1c 10/01/17 13:15 MCH RDW Lymph % (Auto) [place] % (Auto) POC ABG pO2 Chloride Hemoglobin A1c 6.4 H
[2017-10-03] MEDS: DUONEB *Not for PRN Use IH SCH ×2 (13:47→19:11)
[2017-10-04] MEDS: ROBITUSSIN PO SCH ×6 (00:06→20:02)
[2017-10-04] MEDS: DUONEB *Not for PRN Use IH SCH ×4 (01:41→21:36)
[2017-10-04] MEDS: TESSALON PERLES PO SCH ×3 (06:33→21:56)
[2017-10-04] MEDS: PERCOCET 5/325 PO PRN ×2 (06:40→16:46)
[2017-10-04] MEDS: PULMICORT IH SCH ×2 (07:59→19:40)
[2017-10-04] MEDS: BROVANA NEBU IH SCH ×2 (07:59→19:40)
--- NOTE | 2017-10-04 09:34 | Progress Note ---
<EDU GOMEZ - Last Filed: 10/04/17 11:26> Assessment and Plan Assessment and plan: Patient is a 41-year-old female with history of asthma who presented to the emergency department with shortness of breath and associated cough which is nonproductive for 24 hours prior to admission. Acute COPD exacerbation Continue IV antibiotics, nebs, supplemental oxygen and Solu-Medrol, patient is still on BiPAP Pulmonology following Asthma exacerbation Treatment as above. Acute bronchitis Continue Levaquin Acute respiratory failure due to COPD exacerbation On BIPAP, supplemental Oxygen. Pulm following Morbid Obesity Patient counseled on weight loss Nicotine dependence Patient counselled on cessation Hypertension Patient refusing to take antihypertensives, states her doctor took her off of BP meds, BP stable DVT prophylaxis Heparin History Interval history: Patient seen and examined. Still on BIPAP, still SOB, more with exertion, feels like she's not getting better. Labs and nursing notes reviewed. Hospitalist Physical - Constitutional Vitals: Temp Pulse Resp BP Pulse Ox 97.7 F 70 18 155/94 100 10/04/17 07:10 10/04/17 07:10 10/04/17 07:40 10/04/17 07:10 10/04/17 07:10 General appearance: Present: no acute distress, well-nourished, obese - EENT Eyes: Present: PERRL, EOM intact ENT: hearing intact, clear oral mucosa, dentition normal - Neck Neck: Present: supple, normal ROM - Respiratory Respiratory effort: normal Respiratory: bilateral: diminished - Cardiovascular Rhythm: regular Heart Sounds: Present: S1 & S2 - Extremities Extremities: no ischemia, pulses intact, No edema - Abdominal General gastrointestinal: soft, non-tender, non-distended - Integumentary Integumentary: Present: clear, warm, dry - Psychiatric Psychiatric: appropriate mood/affect, intact judgment & insight, cooperative - Neurologic Neurologic: CNII-XII intact, moves all extremities - Allied Health Allied health notes reviewed: nursing Results - Labs CBC & Chem 7: 09/28/17 19:07 09/28/17 19:07 Labs: Laboratory Last Values WBC 9.8 K/mm3 (4.5-11.0) 09/28/17 19:07 RBC 4.97 M/mm3 (3.65-5.03) 09/28/17 19:07 Hgb 13.3 gm/dl (10.1-14.3) 09/28/17 19:07 Hct 41.1 % (30.3-42.9) 09/28/17 19:07 MCV 83 fl (79-97) 09/28/17 19:07 MCH 27 pg (28-32) L 09/28/17 19:07 MCHC 32 % (30-34) 09/28/17 19:07 RDW 15.5 % (13.2-15.2) H 09/28/17 19:07 Plt Count 286 K/mm3 (140-440) 09/28/17 19:07 Lymph % (Auto) 35.1 % (13.4-35.0) H 09/28/17 19:07 [place] % (Auto) 8.0 % (0.0-7.3) H 09/28/17 19:07 Eos % (Auto) 2.6 % (0.0-4.3) 09/28/17 19:07 Baso % (Auto) 0.7 % (0.0-1.8) 09/28/17 19:07 Lymph # 3.4 K/mm3 (1.2-5.4) 09/28/17 19:07 [place] # 0.8 K/mm3 (0.0-0.8) 09/28/17 19:07 Eos # 0.2 K/mm3 (0.0-0.4) 09/28/17 19:07 Baso # 0.1 K/mm3 (0.0-0.1) 09/28/17 19:07 Seg Neutrophils % 53.6 % (40.0-70.0) 09/28/17 19:07 Seg Neutrophils # 5.2 K/mm3 (1.8-7.7) 09/28/17 19:07 D-Dimer < 135.00 ng/mlDDU (0-234) 09/29/17 17:38 POC ABG pH 7.390 (7.35-7.45) 09/29/17 14:46 POC ABG pCO2 43.1 (35-45) 09/29/17 14:46 POC ABG pO2 74 (80-105) L 09/29/17 14:46 POC ABG HCO3 26.1 09/29/17 14:46 POC ABG Total CO2 27 09/29/17 14:46 POC ABG O2 Sat 95 09/29/17 14:46 POC ABG Base Excess 1 09/29/17 14:46 FiO2 21 % 09/29/17 14:46 Sodium 137 mmol/L (137-145) 09/28/17 19:07 Potassium 4.1 mmol/L (3.6-5.0) 09/28/17 19:07 Chloride 95.8 mmol/L (98-107) L 09/28/17 19:07 Carbon Dioxide 27 mmol/L (22-30) 09/28/17 19:07 Anion Gap 18 mmol/L 09/28/17 19:07 BUN 10 mg/dL (7-17) 09/28/17 19:07 Creatinine 0.7 mg/dL (0.7-1.2) 09/28/17 19:07 Estimated GFR > 60 ml/min 09/28/17 19:07 BUN/Creatinine Ratio 14 % 09/28/17 19:07 Glucose 98 mg/dL (65-100) 09/28/17 19:07 Hemoglobin A1c 6.4 % (4-6) H 10/01/17 13:15 Calcium 9.2 mg/dL (8.4-10.2) 09/28/17 19:07 Total Creatine Kinase 58 units/L (30-135) 09/28/17 23:32 Troponin T < 0.010 ng/mL (0.00-0.029) 09/28/17 23:32 HCG, Qual Negative (Negative) 09/28/17 19:07 <BRITTANY ÁLVAREZ O - Last Filed: 10/04/17 16:32> Assessment and Plan Assessment and plan: I saw and evaluated the patient. I agree with the findings and the plan of care as documented in the Nurse Practitioner's~note, with the following corrections and additions. Patient still c/o shortness of btrreath, now on high flow Oxygen at 25l/min. Discussed with Mechanical Product Engineer. Patient is considering hospice care. Hospitalist Physical - Constitutional Vitals: Temp Pulse Resp BP Pulse Ox 97.7 F 68 18 155/94 98 10/04/17 07:10 10/04/17 13:55 10/04/17 13:55 10/04/17 07:10 10/04/17 13:00 Results - Labs CBC & Chem 7: 09/28/17 19:07 09/28/17 19:07 Labs: Laboratory Last Values WBC 9.8 K/mm3 (4.5-11.0) 09/28/17 19:07 RBC 4.97 M/mm3 (3.65-5.03) 09/28/17 19:07 Hgb 13.3 gm/dl (10.1-14.3) 09/28/17 19:07 Hct 41.1 % (30.3-42.9) 09/28/17 19:07 MCV 83 fl (79-97) 09/28/17 19:07 MCH 27 pg (28-32) L 09/28/17 19:07 MCHC 32 % (30-34) 09/28/17 19:07 RDW 15.5 % (13.2-15.2) H 09/28/17 19:07 Plt Count 286 K/mm3 (140-440) 09/28/17 19:07 Lymph % (Auto) 35.1 % (13.4-35.0) H 09/28/17 19:07 [place] % (Auto) 8.0 % (0.0-7.3) H 09/28/17 19:07 Eos % (Auto) 2.6 % (0.0-4.3) 09/28/17 19:07 Baso % (Auto) 0.7 % (0.0-1.8) 09/28/17 19:07 Lymph # 3.4 K/mm3 (1.2-5.4) 09/28/17 19:07 [place] # 0.8 K/mm3 (0.0-0.8) 09/28/17 19:07 Eos # 0.2 K/mm3 (0.0-0.4) 09/28/17 19:07 Baso # 0.1 K/mm3 (0.0-0.1) 09/28/17 19:07 Seg Neutrophils % 53.6 % (40.0-70.0) 09/28/17 19:07 Seg Neutrophils # 5.2 K/mm3 (1.8-7.7) 09/28/17 19:07 D-Dimer < 135.00 ng/mlDDU (0-234) 09/29/17 17:38 POC ABG pH 7.390 (7.35-7.45) 09/29/17 14:46 POC ABG pCO2 43.1 (35-45) 09/29/17 14:46 POC ABG pO2 74 (80-105) L 09/29/17 14:46 POC ABG HCO3 26.1 09/29/17 14:46 POC ABG Total CO2 27 09/29/17 14:46 POC ABG O2 Sat 95 09/29/17 14:46 POC ABG Base Excess 1 09/29/17 14:46 FiO2 21 % 09/29/17 14:46 Sodium 137 mmol/L (137-145) 09/28/17 19:07 Potassium 4.1 mmol/L (3.6-5.0) 09/28/17 19:07 Chloride 95.8 mmol/L (98-107) L 09/28/17 19:07 Carbon Dioxide 27 mmol/L (22-30) 09/28/17 19:07 Anion Gap 18 mmol/L 09/28/17 19:07 BUN 10 mg/dL (7-17) 09/28/17 19:07 Creatinine 0.7 mg/dL (0.7-1.2) 09/28/17 19:07 Estimated GFR > 60 ml/min 09/28/17 19:07 BUN/Creatinine Ratio 14 % 09/28/17 19:07 Glucose 98 mg/dL (65-100) 09/28/17 19:07 Hemoglobin A1c 6.4 % (4-6) H 10/01/17 13:15 Calcium 9.2 mg/dL (8.4-10.2) 09/28/17 19:07 Total Creatine Kinase 58 units/L (30-135) 09/28/17 23:32 Troponin T < 0.010 ng/mL (0.00-0.029) 09/28/17 23:32 HCG, Qual Negative (Negative) 09/28/17 19:07
[2017-10-04] MEDS: LEVAQUIN PO SCH (12:03)
[2017-10-04] MEDS: HEPARIN SUB-Q SCH ×2 (12:03→21:58)
[2017-10-04] MEDS: LASIX PO SCH (12:03)
[2017-10-04] MEDS: COLACE PO SCH ×2 (12:03→21:56)
[2017-10-04] MEDS: ASPIRIN PO SCH (12:04)
--- NOTE | 2017-10-04 12:52 | Progress Note ---
Assessment and Plan Acute hypoxemic respiratory failure. Acute chronic obstructive pulmonary disease exacerbation. Morbid obesity. Obstructive sleep apnea. Uncontrolled hypertension. History of arthritis. History of cardiomyopathy. Subjective Date of service: 10/04/17 Principal diagnosis: Acute on Chronic Hypercapnic Hypoxemic Resp Failure; COPD with AE Interval history: Patient is seen today for: Acute on Chronic Hypercapnic Hypoxemic Resp Failure; COPD with AE; Morbid Obesity Seen and examined at bedside; 24hour events reviewed; nursing and respiratory care staff consulted; no adverse overnight events reported to me; Objective Vital Signs - 12hr 10/04/17 10/04/17 10/04/17 01:53 01:55 06:40 Temperature Pulse Rate 89 Pulse Rate [ Posterior Right Upper Lobe] Respiratory 17 19 Rate Respiratory Rate [Posterior Right Upper Lobe] Blood Pressure [Left] O2 Sat by Pulse 100 100 Oximetry 10/04/17 10/04/17 10/04/17 07:00 07:10 07:25 Temperature 97.7 F Pulse Rate 70 Pulse Rate [ 72 Posterior Right Upper Lobe] Respiratory 20 Rate Respiratory 18 Rate [Posterior Right Upper Lobe] Blood Pressure 155/94 [Left] O2 Sat by Pulse 97 100 Oximetry 10/04/17 10/04/17 07:35 07:40 Temperature Pulse Rate Pulse Rate [ 66 Posterior Right Upper Lobe] Respiratory 18 Rate Respiratory 18 Rate [Posterior Right Upper Lobe] Blood Pressure [Left] O2 Sat by Pulse Oximetry Constitutional: no acute distress, alert Eyes: non-icteric ENT: oropharynx moist Neck: supple, no lymphadenopathy Ascultation: Bilateral: diminished breath sounds, wheezes Cardiovascular: regular rate and rhythm Gastrointestinal: normoactive bowel sounds, soft, non-tender Integumentary: normal Extremities: no cyanosis, no edema Neurologic: normal mental status, non-focal exam, pupils equal and round, CN II- XII normal Psychiatric: mood appropriate CBC and BMP: 09/28/17 19:07 09/28/17 19:07 ABG, PT/INR, D-dimer: ABG POC ABG pH 7.390 (7.35-7.45) 09/29/17 14:46 POC ABG pCO2 43.1 (35-45) 09/29/17 14:46 POC ABG pO2 74 (80-105) L 09/29/17 14:46 POC ABG HCO3 26.1 09/29/17 14:46 POC ABG Total CO2 27 09/29/17 14:46 POC ABG O2 Sat 95 09/29/17 14:46 PT/INR, D-dimer D-Dimer < 135.00 ng/mlDDU (0-234) 09/29/17 17:38 Abnormal lab findings: Abnormal Labs 09/28/17 09/28/17 09/29/17 19:07 19:07 14:46 MCH 27 L RDW 15.5 H Lymph % (Auto) 35.1 H [place] % (Auto) 8.0 H POC ABG pO2 74 L Chloride 95.8 L Hemoglobin A1c 10/01/17 13:15 MCH RDW Lymph % (Auto) [place] % (Auto) POC ABG pO2 Chloride Hemoglobin A1c 6.4 H
[2017-10-04] MEDS ORDERED: NON-FORMULARY (Lipitor 40 MG) PO SCH (22:00)
[2017-10-05] MEDS: ROBITUSSIN PO SCH ×7 (01:17→22:33)
[2017-10-05] MEDS: AMBIEN PO PRN (01:18)
[2017-10-05] MEDS: DUONEB *Not for PRN Use IH SCH ×4 (02:22→20:11)
[2017-10-05] MEDS: TESSALON PERLES PO SCH ×3 (05:45→21:49)
[2017-10-05] MEDS: PROVENTIL IH PRN (06:26)
[2017-10-05 07:58] LABS: Hematocrit 42.3 % (30.3-42.9); Hemoglobin 13.6 gm/dl (10.1-14.3); Mean Corpuscular HGB Conc 32 % (30-34); Mean Corpuscular Hemoglobin 26 pg (28-32); Mean Corpuscular Volume 82 fl (79-97); Platelet Count 330 K/mm3 (140-440); Red Blood Count 5.19 M/mm3 (3.65-5.03); Red Cell Distribution Width 15.4 % (13.2-15.2)
--- NOTE | 2017-10-05 09:07 | Progress Note ---
<EDU GOMEZ - Last Filed: 10/05/17 15:07> Assessment and Plan Assessment and plan: Patient is a 41-year-old female with history of asthma who presented to the emergency department with shortness of breath and associated cough which is nonproductive for 24 hours prior to admission. Acute COPD exacerbation Continue IV antibiotics, nebs, supplemental oxygen and Solu-Medrol, patient is still on high flow O2, down to 15L from 25L Pulmonology following Acute bronchitis Clinically improving, no longer coughing Continue Levaquin Acute respiratory failure due to COPD exacerbation On BIPAP, supplemental Oxygen. Pulm following Morbid Obesity Patient counseled on weight loss Nicotine dependence Patient counselled on cessation Hypertension Patient refusing to take antihypertensives, states her doctor took her off of BP meds, BP stable Anxiety Patient initiated on Xanax DVT prophylaxis Heparin History Interval history: Patient seen and examined. SOB, more with exertion, feels like she's not getting better, feels anxious as if she can't breathe even though she's on O2 and sats are WNL. Feels as if her heart is fluttering. Labs and nursing notes reviewed. Hospitalist Physical - Constitutional Vitals: Temp Pulse Resp BP Pulse Ox 97.5 F L 76 20 117/68 98 10/05/17 08:00 10/05/17 08:00 10/05/17 08:00 10/05/17 08:00 10/05/17 08:00 General appearance: Present: no acute distress, well-nourished, obese - EENT Eyes: Present: PERRL, EOM intact Results - Labs CBC & Chem 7: 10/05/17 07:31 10/05/17 07:31 Labs: Laboratory Last Values WBC 17.5 K/mm3 (4.5-11.0) H 10/05/17 07:31 RBC 5.19 M/mm3 (3.65-5.03) H 10/05/17 07:31 Hgb 13.6 gm/dl (10.1-14.3) 10/05/17 07:31 Hct 42.3 % (30.3-42.9) 10/05/17 07:31 MCV 82 fl (79-97) 10/05/17 07:31 MCH 26 pg (28-32) L 10/05/17 07:31 MCHC 32 % (30-34) 10/05/17 07:31 RDW 15.4 % (13.2-15.2) H 10/05/17 07:31 Plt Count 330 K/mm3 (140-440) 10/05/17 07:31 Lymph % (Auto) 35.1 % (13.4-35.0) H 09/28/17 19:07 [place] % (Auto) 8.0 % (0.0-7.3) H 09/28/17 19:07 Eos % (Auto) 2.6 % (0.0-4.3) 09/28/17 19:07 Baso % (Auto) 0.7 % (0.0-1.8) 09/28/17 19:07 Lymph # 3.4 K/mm3 (1.2-5.4) 09/28/17 19:07 [place] # 0.8 K/mm3 (0.0-0.8) 09/28/17 19:07 Eos # 0.2 K/mm3 (0.0-0.4) 09/28/17 19:07 Baso # 0.1 K/mm3 (0.0-0.1) 09/28/17 19:07 Seg Neutrophils % 53.6 % (40.0-70.0) 09/28/17 19:07 Seg Neutrophils # 5.2 K/mm3 (1.8-7.7) 09/28/17 19:07 D-Dimer < 135.00 ng/mlDDU (0-234) 09/29/17 17:38 POC ABG pH 7.390 (7.35-7.45) 09/29/17 14:46 POC ABG pCO2 43.1 (35-45) 09/29/17 14:46 POC ABG pO2 74 (80-105) L 09/29/17 14:46 POC ABG HCO3 26.1 09/29/17 14:46 POC ABG Total CO2 27 09/29/17 14:46 POC ABG O2 Sat 95 09/29/17 14:46 POC ABG Base Excess 1 09/29/17 14:46 FiO2 21 % 09/29/17 14:46 Sodium 137 mmol/L (137-145) 09/28/17 19:07 Potassium 4.1 mmol/L (3.6-5.0) 09/28/17 19:07 Chloride 95.8 mmol/L (98-107) L 09/28/17 19:07 Carbon Dioxide 27 mmol/L (22-30) 09/28/17 19:07 Anion Gap 18 mmol/L 09/28/17 19:07 BUN 10 mg/dL (7-17) 09/28/17 19:07 Creatinine 0.7 mg/dL (0.7-1.2) 09/28/17 19:07 Estimated GFR > 60 ml/min 09/28/17 19:07 BUN/Creatinine Ratio 14 % 09/28/17 19:07 Glucose 98 mg/dL (65-100) 09/28/17 19:07 Hemoglobin A1c 6.4 % (4-6) H 10/01/17 13:15 Calcium 9.2 mg/dL (8.4-10.2) 09/28/17 19:07 Total Creatine Kinase 58 units/L (30-135) 09/28/17 23:32 Troponin T < 0.010 ng/mL (0.00-0.029) 09/28/17 23:32 HCG, Qual Negative (Negative) 09/28/17 19:07 <LOLA GAXIOLA R - Last Filed: 10/06/17 17:17> Assessment and Plan Assessment and plan: I saw and evaluated the patient on the day of service. I agree with the findings and the plan of care as documented in the Nurse Practitioner's~note, with the following corrections and additions. Patient currently on high flow O2, plan to wean off as tolerated. Hospitalist Physical - Constitutional Vitals: Temp Pulse Resp BP Pulse Ox 98.8 F 80 16 146/86 95 10/05/17 15:38 10/05/17 22:00 10/05/17 22:00 10/05/17 15:40 10/05/17 22:00 Results - Labs CBC & Chem 7: 10/05/17 07:31 10/05/17 07:31 Labs: Laboratory Last Values WBC 17.5 K/mm3 (4.5-11.0) H 10/05/17 07:31 RBC 5.19 M/mm3 (3.65-5.03) H 10/05/17 07:31 Hgb 13.6 gm/dl (10.1-14.3) 10/05/17 07:31 Hct 42.3 % (30.3-42.9) 10/05/17 07:31 MCV 82 fl (79-97) 10/05/17 07:31 MCH 26 pg (28-32) L 10/05/17 07:31 MCHC 32 % (30-34) 10/05/17 07:31 RDW 15.4 % (13.2-15.2) H 10/05/17 07:31 Plt Count 330 K/mm3 (140-440) 10/05/17 07:31 Lymph % (Auto) 35.1 % (13.4-35.0) H 09/28/17 19:07 [place] % (Auto) 8.0 % (0.0-7.3) H 09/28/17 19:07 Eos % (Auto) 2.6 % (0.0-4.3) 09/28/17 19:07 Baso % (Auto) 0.7 % (0.0-1.8) 09/28/17 19:07 Lymph # 3.4 K/mm3 (1.2-5.4) 09/28/17 19:07 [place] # 0.8 K/mm3 (0.0-0.8) 09/28/17 19:07 Eos # 0.2 K/mm3 (0.0-0.4) 09/28/17 19:07 Baso # 0.1 K/mm3 (0.0-0.1) 09/28/17 19:07 Seg Neutrophils % 53.6 % (40.0-70.0) 09/28/17 19:07 Seg Neutrophils # 5.2 K/mm3 (1.8-7.7) 09/28/17 19:07 D-Dimer < 135.00 ng/mlDDU (0-234) 09/29/17 17:38 POC ABG pH 7.390 (7.35-7.45) 09/29/17 14:46 POC ABG pCO2 43.1 (35-45) 09/29/17 14:46 POC ABG pO2 74 (80-105) L 09/29/17 14:46 POC ABG HCO3 26.1 09/29/17 14:46 POC ABG Total CO2 18 14:46 POC ABG O2 Sat 95 09/29/17 14:46 POC ABG Base Excess 1 09/29/17 14:46 FiO2 21 % 09/29/17 14:46 Sodium 141 mmol/L (137-145) 10/05/17 07:31 Potassium 4.8 mmol/L (3.6-5.0) 10/05/17 07:31 Chloride 97.7 mmol/L (98-107) L 10/05/17 07:31 Carbon Dioxide 30 mmol/L (22-30) 10/05/17 07:31 Anion Gap 18 mmol/L 10/05/17 07:31 BUN 24 mg/dL (7-17) H 10/05/17 07:31 Creatinine 0.7 mg/dL (0.7-1.2) 10/05/17 07:31 Estimated GFR > 60 ml/min 10/05/17 07:31 BUN/Creatinine Ratio 34 % 10/05/17 07:31 Glucose 183 mg/dL (65-100) H 10/05/17 07:31 Hemoglobin A1c 6.4 % (4-6) H 10/01/17 13:15 Calcium 8.8 mg/dL (8.4-10.2) 10/05/17 07:31 Total Creatine Kinase 58 units/L (30-135) 09/28/17 23:32 Troponin T < 0.010 ng/mL (0.00-0.029) 09/28/17 23:32 HCG, Qual Negative (Negative) 09/28/17 19:07
[2017-10-05] MEDS: BROVANA NEBU IH SCH ×2 (10:00→20:11)
[2017-10-05] MEDS: COLACE PO SCH ×2 (10:00→21:49)
[2017-10-05] MEDS: PULMICORT IH SCH ×2 (10:00→20:11)
[2017-10-05 10:18] LABS: BUN/Creatinine Ratio 34; Blood Urea Nitrogen 24 mg/dL (7-17); Calcium 8.8 mg/dL (8.4-10.2); Hemolysis Index 7
[2017-10-05] MEDS: ASPIRIN PO SCH (10:23)
[2017-10-05] MEDS: PERCOCET 5/325 PO PRN ×2 (10:24→18:22)
[2017-10-05] MEDS: LASIX PO SCH (10:24)
[2017-10-05] MEDS: HEPARIN SUB-Q SCH ×2 (10:25→21:49)
[2017-10-05] MEDS: LEVAQUIN PO SCH (10:26)
[2017-10-05] MEDS: XANAX PO PRN (18:22)
--- NOTE | 2017-10-05 20:34 | Progress Note ---
Assessment and Plan Acute COPD exacerbation Acute on chronic hypoxic respiratory failure due to COPD exacerbation. Morbid Obesity Nicotine dependence/Tobacco abuse disorder Hypertension Subjective Date of service: 10/05/17 Principal diagnosis: respiratory insufficiency, COPD with AE Interval history: Patient is seen today for: Acute on Chronic Hypercapnic Hypoxemic Resp Failure; COPD with AE; Morbid Obesity Seen and examined at bedside; 24hour events reviewed; nursing and respiratory care staff consulted; no adverse overnight events reported to me; Objective - Exam Narrative Exam: Gen appearance: Not in acute distress, morbidly obese, lying in bed, HEENT:Normocephalic, atraumatic Neck:supple, no JVD Lungs: Decreased breath sounds bilaterally, bilat rhonchi Heart: S1 and S2 regular, no murmurs, rubs or gallop Abdomen: soft, non tender, non distended, normal bowel sounds Ext: No edema, no clubbing, no cyanosis. Neuro: Awake, alert, oriented x 3, moves all extremities. Psych:Normal mood Vital Signs - 12hr 10/05/17 10/05/17 10/05/17 10:00 10:10 11:09 Temperature Pulse Rate Pulse Rate [ 76 78 Posterior Bilateral Throughout] Pulse Rate [ Posterior Right Upper Lobe] Respiratory Rate Respiratory 20 20 Rate [Posterior Bilateral Throughout] Respiratory Rate [Posterior Right Upper Lobe] Blood Pressure Blood Pressure [Left] O2 Sat by Pulse 97 Oximetry 10/05/17 10/05/17 10/05/17 11:20 11:31 15:25 Temperature Pulse Rate Pulse Rate [ 85 Posterior Bilateral Throughout] Pulse Rate [ 90 Posterior Right Upper Lobe] Respiratory 24 Rate Respiratory 18 Rate [Posterior Bilateral Throughout] Respiratory 18 Rate [Posterior Right Upper Lobe] Blood Pressure 149/105 129/73 Blood Pressure [Left] O2 Sat by Pulse Oximetry 10/05/17 10/05/17 10/05/17 15:38 15:40 20:13 Temperature 98.8 F Pulse Rate 83 Pulse Rate [ 86 Posterior Bilateral Throughout] Pulse Rate [ Posterior Right Upper Lobe] Respiratory 20 18 Rate Respiratory 20 Rate [Posterior Bilateral Throughout] Respiratory Rate [Posterior Right Upper Lobe] Blood Pressure 148/86 Blood Pressure 146/86 [Left] O2 Sat by Pulse 99 100 Oximetry Constitutional: no acute distress, alert Eyes: non-icteric ENT: oropharynx moist Neck: supple, no lymphadenopathy Ascultation: Bilateral: diminished breath sounds, wheezes Cardiovascular: regular rate and rhythm Gastrointestinal: normoactive bowel sounds, soft, non-tender Integumentary: normal Extremities: no cyanosis, no edema Neurologic: normal mental status, non-focal exam, pupils equal and round, CN II- XII normal Psychiatric: mood appropriate CBC and BMP: 10/05/17 07:31 10/05/17 07:31 ABG, PT/INR, D-dimer: ABG POC ABG pH 7.390 (7.35-7.45) 09/29/17 14:46 POC ABG pCO2 43.1 (35-45) 09/29/17 14:46 POC ABG pO2 74 (80-105) L 09/29/17 14:46 POC ABG HCO3 26.1 09/29/17 14:46 POC ABG Total CO2 27 09/29/17 14:46 POC ABG O2 Sat 95 09/29/17 14:46 PT/INR, D-dimer D-Dimer < 135.00 ng/mlDDU (0-234) 09/29/17 17:38 Abnormal lab findings: Abnormal Labs 09/28/17 09/28/17 09/29/17 19:07 19:07 14:46 WBC RBC MCH 27 L RDW 15.5 H Lymph % (Auto) 35.1 H [place] % (Auto) 8.0 H POC ABG pO2 74 L Chloride 95.8 L BUN Glucose Hemoglobin A1c 10/01/17 10/05/17 10/05/17 13:15 07:31 07:31 WBC 17.5 H RBC 5.19 H MCH 26 L RDW 15.4 H Lymph % (Auto) [place] % (Auto) POC ABG pO2 Chloride 97.7 L BUN 24 H Glucose 183 H Hemoglobin A1c 6.4 H
[2017-10-06] MEDS: DUONEB *Not for PRN Use IH SCH ×4 (01:58→22:26)
[2017-10-06] MEDS: ROBITUSSIN PO SCH ×6 (03:00→23:10)
[2017-10-06] MEDS: AMBIEN PO PRN (03:00)
[2017-10-06] MEDS: XANAX PO PRN ×3 (03:00→21:38)
[2017-10-06] MEDS: PERCOCET 5/325 PO PRN ×3 (06:14→23:10)
[2017-10-06] MEDS: TESSALON PERLES PO SCH ×3 (06:14→21:38)
[2017-10-06] MEDS: BROVANA NEBU IH SCH ×2 (07:48→19:17)
[2017-10-06] MEDS: PULMICORT IH SCH ×2 (07:48→19:17)
[2017-10-06] MEDS: LEVAQUIN PO SCH (11:30)
[2017-10-06] MEDS: HEPARIN SUB-Q SCH ×2 (11:31→21:39)
[2017-10-06] MEDS: LASIX PO SCH (11:31)
[2017-10-06] MEDS: ASPIRIN PO SCH (11:31)
[2017-10-06] MEDS: COLACE PO SCH ×2 (11:31→21:38)
--- NOTE | 2017-10-06 13:46 | Progress Note ---
Assessment and Plan Acute COPD exacerbation Acute on chronic hypoxic respiratory failure due to COPD exacerbation. Morbid Obesity Nicotine dependence/Tobacco abuse disorder Hypertension Subjective Date of service: 10/06/17 Principal diagnosis: respiratory insufficiency, COPD with AE Interval history: Patient is seen today for: Acute on Chronic Hypercapnic Hypoxemic Resp Failure; COPD with AE; Morbid Obesity Seen and examined at bedside; 24hour events reviewed; nursing and respiratory care staff consulted; no adverse overnight events reported to me; Objective - Exam Narrative Exam: Gen appearance: Not in acute distress, morbidly obese, lying in bed, HEENT:Normocephalic, atraumatic Neck:supple, no JVD Lungs: Decreased breath sounds bilaterally, bilat rhonchi Heart: S1 and S2 regular, no murmurs, rubs or gallop Abdomen: soft, non tender, non distended, normal bowel sounds Ext: No edema, no clubbing, no cyanosis. Neuro: Awake, alert, oriented x 3, moves all extremities. Psych:Normal mood Vital Signs - 12hr 10/06/17 10/06/17 10/06/17 02:57 07:48 07:49 Temperature 97.7 F Pulse Rate 80 78 Pulse Rate [ 80 Posterior Bilateral Throughout] Respiratory 19 19 Rate Respiratory 22 Rate [Posterior Bilateral Throughout] Blood Pressure 164/108 Blood Pressure [Left] O2 Sat by Pulse 100 100 Oximetry 10/06/17 10/06/17 10/06/17 07:58 08:19 08:24 Temperature Pulse Rate 72 Pulse Rate [ 71 Posterior Bilateral Throughout] Respiratory Rate Respiratory 18 Rate [Posterior Bilateral Throughout] Blood Pressure Blood Pressure [Left] O2 Sat by Pulse 100 100 Oximetry 10/06/17 10/06/17 08:41 11:40 Temperature 97.7 F Pulse Rate 78 Pulse Rate [ Posterior Bilateral Throughout] Respiratory 20 Rate Respiratory Rate [Posterior Bilateral Throughout] Blood Pressure Blood Pressure 164/108 [Left] O2 Sat by Pulse 100 98 Oximetry Constitutional: no acute distress, alert Eyes: non-icteric ENT: oropharynx moist Neck: supple, no lymphadenopathy Ascultation: Bilateral: diminished breath sounds, wheezes Cardiovascular: regular rate and rhythm Gastrointestinal: normoactive bowel sounds, soft, non-tender Integumentary: normal Extremities: no cyanosis, no edema Neurologic: normal mental status, non-focal exam, pupils equal and round, CN II- XII normal Psychiatric: mood appropriate CBC and BMP: 10/05/17 07:31 10/05/17 07:31 ABG, PT/INR, D-dimer: ABG POC ABG pH 7.390 (7.35-7.45) 09/29/17 14:46 POC ABG pCO2 43.1 (35-45) 09/29/17 14:46 POC ABG pO2 74 (80-105) L 09/29/17 14:46 POC ABG HCO3 26.1 09/29/17 14:46 POC ABG Total CO2 27 09/29/17 14:46 POC ABG O2 Sat 95 09/29/17 14:46 PT/INR, D-dimer D-Dimer < 135.00 ng/mlDDU (0-234) 09/29/17 17:38 Abnormal lab findings: Abnormal Labs 09/28/17 09/28/17 09/29/17 19:07 19:07 14:46 WBC RBC MCH 27 L RDW 15.5 H Lymph % (Auto) 35.1 H [place] % (Auto) 8.0 H POC ABG pO2 74 L Chloride 95.8 L BUN Glucose Hemoglobin A1c 10/01/17 10/05/17 10/05/17 13:15 07:31 07:31 WBC 17.5 H RBC 5.19 H MCH 26 L RDW 15.4 H Lymph % (Auto) [place] % (Auto) POC ABG pO2 Chloride 97.7 L BUN 24 H Glucose 183 H Hemoglobin A1c 6.4 H
--- NOTE | 2017-10-06 17:10 | Vascular Lab Report ---
LOWER EXTREMITY VENOUS DUPLEX: REASON FOR EXAM: Swelling and shortness of breath. COMMENTS ON THE RIGHT: All veins visualized are freely compressible without evidence of internal echogenicity. Flow is spontaneous and phasic throughout. COMMENTS ON THE LEFT: All veins visualized are freely compressible without evidence of internal echogenicity. Flow is spontaneous and phasic throughout. IMPRESSION: No evidence of acute or chronic deep venous thrombosis in either lower extremity.
--- NOTE | 2017-10-06 17:20 | Progress Note ---
Assessment and Plan Patient is a 41-year-old female with history of asthma who presented to the emergency department with shortness of breath and associated cough which is nonproductive for 24 hours prior to admission. /Acute COPD exacerbation Continue IV antibiotics, nebs, supplemental oxygen and Solu-Medrol, off high flow O2 now on N/c Pulmonology following /Acute bronchitis Clinically improving, no longer coughing Continue Levaquin /Acute respiratory failure due to COPD exacerbation On BIPAP, supplemental Oxygen. Pulm following /Morbid Obesity Patient counseled on weight loss /Nicotine dependence Patient counselled on cessation /Hypertension Patient refusing to take antihypertensives, states her doctor took her off of BP meds, BP stable /Anxiety Patient initiated on Xanax /DVT prophylaxis Heparin Hospitalist Physical exam: GENERAL: well-developed and morbidly obese -[place] female lying on bed appeared to be in no discomfort. HEENT: Normocephalic. Atraumatic. No conjunctival congestion or icterus. Patient has moist mucous membranes. NECK: Supple. Trachea midline. CHEST/LUNGS: A few wheezes auscultated bilaterally, breathing nonlabored. HEART/CARDIOVASCULAR: Regular in rate and rhythm. S1 and S2 positive. ABDOMEN: Abdomen is soft, nontender. Patient has normal bowel sounds. SKIN: There is no rash. Warm and dry. NEURO: No focal motor deficit. Follows command. MUSCULOSKELETAL: No joint effusion or tenderness. EXTRIMITY: No edema, no cyanosis or clubbing. PSYCH: Cooperative. Subjective Date of service: 10/06/17 Principal diagnosis: respiratory insufficiency, COPD with AE Interval history: Patient seen and examined. Medical records and medication list reviewed. No acute event overnight noted by the RN. Patient denies any chest pain, difficulty breathing on minimal exertion. Patient is tolerating diet. cont to complains of anxiety Discussed plan of care at bedside with patient. Objective - Constitutional Vitals: Vital Signs - 12hr 10/06/17 10/06/17 10/06/17 07:48 07:49 07:58 Temperature 97.7 F Pulse Rate 78 72 Pulse Rate [ 80 Posterior Bilateral Throughout] Respiratory 19 Rate Respiratory 22 Rate [Posterior Bilateral Throughout] Blood Pressure 164/108 Blood Pressure [Left] O2 Sat by Pulse 100 100 Oximetry 10/06/17 10/06/17 10/06/17 08:19 08:24 08:41 Temperature 97.7 F Pulse Rate 78 Pulse Rate [ 71 Posterior Bilateral Throughout] Respiratory 20 Rate Respiratory 18 Rate [Posterior Bilateral Throughout] Blood Pressure Blood Pressure 164/108 [Left] O2 Sat by Pulse 100 100 Oximetry 10/06/17 10/06/17 10/06/17 10:00 11:40 14:12 Temperature Pulse Rate Pulse Rate [ 80 Posterior Bilateral Throughout] Respiratory Rate Respiratory 20 Rate [Posterior Bilateral Throughout] Blood Pressure Blood Pressure [Left] O2 Sat by Pulse 100 98 Oximetry 10/06/17 10/06/17 14:16 14:47 Temperature Pulse Rate Pulse Rate [ 83 Posterior Bilateral Throughout] Respiratory Rate Respiratory 20 Rate [Posterior Bilateral Throughout] Blood Pressure Blood Pressure [Left] O2 Sat by Pulse 99 Oximetry - Labs CBC & Chem 7: 10/05/17 07:31 10/05/17 07:31
[2017-10-07] MEDS: AMBIEN PO PRN (01:15)
[2017-10-07] MEDS: DUONEB *Not for PRN Use IH SCH ×4 (02:23→21:31)
[2017-10-07] MEDS: TESSALON PERLES PO SCH ×3 (06:16→23:17)
[2017-10-07] MEDS: ROBITUSSIN PO SCH ×6 (06:16→23:18)
[2017-10-07] MEDS: PROVENTIL IH PRN (06:34)
[2017-10-07] MEDS: BROVANA NEBU IH SCH ×2 (08:47→20:10)
[2017-10-07] MEDS: PULMICORT IH SCH ×2 (08:47→20:10)
[2017-10-07] MEDS: LEVAQUIN PO SCH (09:06)
[2017-10-07] MEDS: ASPIRIN PO SCH (09:07)
[2017-10-07] MEDS: LASIX PO SCH (09:07)
[2017-10-07] MEDS: HEPARIN SUB-Q SCH ×2 (09:07→23:19)
[2017-10-07] MEDS: PERCOCET 5/325 PO PRN ×2 (09:07→23:18)
[2017-10-07] MEDS: COLACE PO SCH ×2 (09:07→23:18)
[2017-10-07] MEDS: XANAX PO PRN ×2 (09:19→19:04)
--- NOTE | 2017-10-07 16:33 | Progress Note ---
Assessment and Plan Patient is a 41-year-old female with history of asthma who presented to the emergency department with shortness of breath and associated cough which is nonproductive for 24 hours prior to admission. /Acute COPD exacerbation Continue IV antibiotics, nebs, supplemental oxygen and Solu-Medrol, off high flow O2 now on N/c as needed Pulmonology following /Acute bronchitis Clinically improving, no longer coughing Continue Levaquin /Acute respiratory failure due to COPD exacerbation On BIPAP at bedtime as needed, supplemental Oxygen. Pulm following /Morbid Obesity Patient counseled on weight loss /Nicotine dependence Patient counselled on cessation /Hypertension Patient refusing to take antihypertensives, states her doctor took her off of BP meds, BP stable /Anxiety Patient initiated on Xanax, psych consulted /DVT prophylaxis Heparin Hospitalist Physical exam: GENERAL: well-developed and morbidly obese -[place] female lying on bed appeared to be in no discomfort. HEENT: Normocephalic. Atraumatic. No conjunctival congestion or icterus. Patient has moist mucous membranes. NECK: Supple. Trachea midline. CHEST/LUNGS: A few wheezes auscultated bilaterally, breathing nonlabored. HEART/CARDIOVASCULAR: Regular in rate and rhythm. S1 and S2 positive. ABDOMEN: Abdomen is soft, nontender. Patient has normal bowel sounds. SKIN: There is no rash. Warm and dry. NEURO: No focal motor deficit. Follows command. MUSCULOSKELETAL: No joint effusion or tenderness. EXTRIMITY: No edema, no cyanosis or clubbing. PSYCH: Cooperative. Subjective Date of service: 10/07/17 Principal diagnosis: respiratory insufficiency, COPD with AE Interval history: Patient seen and examined. Medical records and medication list reviewed. No acute event overnight noted by the RN. Patient denies any chest pain, difficulty breathing improved. Patient is tolerating diet. Very anxious about going home, didnot qualify for home O2 and she is very upset about that, psych consult pending Discussed plan of care at bedside with patient. Objective - Constitutional Vitals: Vital Signs - 12hr 10/07/17 10/07/17 10/07/17 06:00 06:15 07:49 Temperature 97.7 F Pulse Rate 65 Pulse Rate [ 90 92 H Posterior Bilateral Throughout] Respiratory 20 Rate Respiratory 18 18 Rate [Posterior Bilateral Throughout] Blood Pressure 123/76 O2 Sat by Pulse 100 Oximetry 0410/07/17 10/07/17 08:47 08:50 11:35 Temperature Pulse Rate Pulse Rate [ 88 Posterior Bilateral Throughout] Respiratory Rate Respiratory 24 Rate [Posterior Bilateral Throughout] Blood Pressure O2 Sat by Pulse 100 99 Oximetry 10/07/17 10/07/17 15:02 15:20 Temperature Pulse Rate Pulse Rate [ 83 74 Posterior Bilateral Throughout] Respiratory Rate Respiratory 20 20 Rate [Posterior Bilateral Throughout] Blood Pressure O2 Sat by Pulse Oximetry - Labs CBC & Chem 7: 10/05/17 07:31 10/05/17 07:31
--- NOTE | 2017-10-07 19:22 | Progress Note ---
Assessment and Plan Patient alert, awake. Resting on room air. O2 saturation 99%.Breathing better. Complaining still slight pleuritic chest pain. - Patient Problems (1) Morbid obesity Current Visit: Yes Status: Chronic Plan to address problem: Weight reduction diet. (2) Sleep apnea Current Visit: Yes Status: Chronic Plan to address problem: Continue BIPAP 16/, rate 16, FIO2 35%. Sleep study as out patient in my office. (3) Acute bronchitis Current Visit: No Status: Acute Plan to address problem: Continue Levaquin. (4) COPD exacerbation Current Visit: Yes Status: Acute Plan to address problem: O2 2 litres via nasal canula. Albuterol aerosol treatments q 6 hours. Continue I/V solumedral. Continue S/C Heparin. Subjective Date of service: 10/07/17 Principal diagnosis: respiratory insufficiency, COPD with AE Interval history: Patient alert, awake. Resting on room air. O2 saturation 99%.Breathing better. Complaining still slight pleuritic chest pain. Objective Vital Signs - 12hr 10/07/17 10/07/17 10/07/17 07:49 08:47 08:50 Temperature 97.7 F Pulse Rate 65 Pulse Rate [ 88 Posterior Bilateral Throughout] Respiratory 20 Rate Respiratory 24 Rate [Posterior Bilateral Throughout] Blood Pressure 123/76 O2 Sat by Pulse 100 100 Oximetry 10/07/17 10/07/17 10/07/17 11:35 15:02 15:20 Temperature Pulse Rate Pulse Rate [ 83 74 Posterior Bilateral Throughout] Respiratory Rate Respiratory 20 20 Rate [Posterior Bilateral Throughout] Blood Pressure O2 Sat by Pulse 99 Oximetry Constitutional: no acute distress, alert Eyes: non-icteric ENT: oropharynx moist Neck: supple, no lymphadenopathy Ascultation: Bilateral: diminished breath sounds, wheezes Cardiovascular: regular rate and rhythm Gastrointestinal: normoactive bowel sounds, soft, non-tender Integumentary: normal Extremities: no cyanosis, no edema Neurologic: normal mental status, non-focal exam, pupils equal and round, CN II- XII normal Psychiatric: mood appropriate CBC and BMP: 10/05/17 07:31 10/05/17 07:31 ABG, PT/INR, D-dimer: ABG POC ABG pH 7.390 (7.35-7.45) 09/29/17 14:46 POC ABG pCO2 43.1 (35-45) 09/29/17 14:46 POC ABG pO2 74 (80-105) L 09/29/17 14:46 POC ABG HCO3 26.1 09/29/17 14:46 POC ABG Total CO2 27 09/29/17 14:46 POC ABG O2 Sat 95 09/29/17 14:46 PT/INR, D-dimer D-Dimer < 135.00 ng/mlDDU (0-234) 09/29/17 17:38 Abnormal lab findings: Abnormal Labs 09/28/17 09/28/17 09/29/17 19:07 19:07 14:46 WBC RBC MCH 27 L RDW 15.5 H Lymph % (Auto) 35.1 H [place] % (Auto) 8.0 H POC ABG pO2 74 L Chloride 95.8 L BUN Glucose Hemoglobin A1c 10/01/17 10/05/17 10/05/17 13:15 07:31 07:31 WBC 17.5 H RBC 5.19 H MCH 26 L RDW 15.4 H Lymph % (Auto) [place] % (Auto) POC ABG pO2 Chloride 97.7 L BUN 24 H Glucose 183 H Hemoglobin A1c 6.4 H
[2017-10-08] MEDS: AMBIEN PO PRN (01:19)
[2017-10-08] MEDS: PROVENTIL IH PRN (05:40)
[2017-10-08] MEDS: ROBITUSSIN PO SCH ×4 (05:52→14:44)
[2017-10-08] MEDS: TESSALON PERLES PO SCH ×2 (05:52→16:52)
[2017-10-08] MEDS: XANAX PO PRN (05:52)
[2017-10-08] MEDS: PULMICORT IH SCH (08:03)
[2017-10-08] MEDS: BROVANA NEBU IH SCH (08:03)
[2017-10-08] MEDS: DUONEB *Not for PRN Use IH SCH ×3 (08:04→13:06)
[2017-10-08] MEDS: ASPIRIN PO SCH (09:45)
[2017-10-08] MEDS: LEVAQUIN PO SCH (09:45)
[2017-10-08] MEDS: LASIX PO SCH (09:45)
[2017-10-08] MEDS: PERCOCET 5/325 PO PRN (09:46)
[2017-10-08] MEDS: COLACE PO SCH (09:46)
[2017-10-08] MEDS: HEPARIN SUB-Q SCH (09:46)
[2017-10-08] MEDS ORDERED: NORVASC PO SCH (12:00)
--- NOTE | 2017-10-08 13:31 | Discharge Summary ---
Providers - Providers Date of Admission: 09/28/17 22:16 Date of discharge: 10/08/17 Attending physician: LOLA GAXIOLA 09/29/17 11:35 Consult to Physician [CONS] Routine Comment: BELA Consulting Provider: MEHDI COLUNGA Physician Instructions: CALLED @[id number] Reason For Exam: asthma exac on BIPAP 10/07/17 12:22 Consult to Mental Health [CONS] Routine Reason For Exam: anxiety Place consult to:: [id number] Notified:: yes Primary care physician: BRITTANY PYLE Hospitalization Condition: Stable Pertinent studies: Chest x-ray: No infiltrates Lower extremity venous. Doppler: No evidence of a deep venous thrombosis Hospital course: Patient is a 41-year-old female with history of asthma who presented to the emergency department with shortness of breath and associated cough which is nonproductive for 24 hours prior to admission. Patient was admitted to the hospital and placed on BiPAP, schedule nebulizer breathing treatment, empiric antibiotics, and empiric steroid. Patient was then weaned off from the BiPAP and placed on BiPAP only at bedtime as needed. She was maintained on high flow oxygen, eventually she was tapered off from the high flow oxygen. Her symptoms improved clinically. She was assessed for home oxygen requirement by she did not qualify. Heart chest x-ray was unremarkable and then was Doppler was negative for any deep venous thrombosis. Patient appeared to be very anxious to go home without oxygen even though she was not qualified for. She was advised to have a sleep study outpatient and obtain CPAP machine at home. She was prescribed for oxygen during bedtime to she get approval for a CPAP machine. Patient was discharged home in stable condition Discharge diagnosis and management: Acute hypoxemic respiratory failure due to COPD/asthma exacerbation Acute on chronic obstructive pulmonary disease exacerbation Morbid obesity, due to excess calorie Possible obstructive sleep apnea Uncontrolled hypertension, refused antihypertensive medications History of osteoarthritis History of cardiomyopathy, with no sign of exacerbation Acute bronchitis, treated with antibiotics Nicotine dependence, Patient counselled on cessation Anxiety, Patient placed on Xanax as needed, advised outpt f/u with psych Hospitalist Physical exam: GENERAL: well-developed and morbidly obese -Turkmen female lying on bed appeared to be in no discomfort. HEENT: Normocephalic. Atraumatic. No conjunctival congestion or icterus. Patient has moist mucous membranes. NECK: Supple. Trachea midline. CHEST/LUNGS: A few wheezes auscultated bilaterally, breathing nonlabored. HEART/CARDIOVASCULAR: Regular in rate and rhythm. S1 and S2 positive. ABDOMEN: Abdomen is soft, nontender. Patient has normal bowel sounds. Radiologist compared to 1SKIN: There is no rash. Warm and dry. NEURO: No focal motor deficit. Follows command. MUSCULOSKELETAL: No joint effusion or tenderness. EXTRIMITY: No edema, no cyanosis or clubbing. PSYCH: Cooperative. Disposition: DC-01 TO HOME OR SELFCARE Time spent for discharge: 32 minutes Core Measure Documentation - Palliative Care Palliative Care/ Comfort Measures: Not Applicable - Core Measures Any of the following diagnoses?: none Exam - Constitutional Vitals: Temp Pulse Resp BP Pulse Ox 98.0 F 87 19 146/94 99 10/08/17 12:30 10/08/17 12:30 10/08/17 12:30 10/08/17 12:30 10/08/17 12:30 Plan Activity: advance as tolerated Weight Bearing Status: Weight Bear as Tolerated Diet: low fat, low salt Durable Medical Equipment Needed Upon Discharge: Oxygen (for possible sleep anea to use at sleeptime) Follow up with: BRITTANY PYLE MD [Primary Care Provider] - 7 Days Prescriptions: predniSONE [Deltasone] 50 mg PO QDAY #5 tab
[2017-10-08 16:50] VITALS: BP 139/89
== END 2017-10-08 18:40 | disposition home or self-care (01) | DRG 189 ==
LOC: ED 18:20 → 3A 22:16
PROVIDERS: ADMIT Internal Medicine; ATTEND Internal Medicine
PROC: 5A09557 Assistance with Respiratory Ventilation, Greater than 96 Consecutive Hours, Continuous Positive Airway Pressure (ICD-10-PCS; 2017-09-28)
PROC: 4A033R1 Measurement of Arterial Saturation, Peripheral, Percutaneous Approach (ICD-10-PCS; principal; 2017-09-29)
PROC: 5A09357 Assistance with Respiratory Ventilation, Less than 24 Consecutive Hours, Continuous Positive Airway Pressure (ICD-10-PCS; 2017-10-04)
PROC: 5A09457 Assistance with Respiratory Ventilation, 24-96 Consecutive Hours, Continuous Positive Airway Pressure (ICD-10-PCS; 2017-10-06)
DX: J96.21 Acute and chronic respiratory failure with hypoxia (principal); J45.901 Unspecified asthma with (acute) exacerbation; E66.01 Morbid (severe) obesity due to excess calories; J44.1 Chronic obstructive pulmonary disease with (acute) exacerbation; G47.33 Obstructive sleep apnea (adult) (pediatric); I10 Essential (primary) hypertension; M19.90 Unspecified osteoarthritis, unspecified site; I42.8 Other cardiomyopathies; J20.9 Acute bronchitis, unspecified; J44.0 Chronic obstructive pulmonary disease with (acute) lower respiratory infection; F17.200 Nicotine dependence, unspecified, uncomplicated; F41.9 Anxiety disorder, unspecified; J45.902 Unspecified asthma with status asthmaticus; Z71.6 Tobacco abuse counseling; Z91.041 Radiographic dye allergy status; Z68.44 Body mass index [BMI] 60.0-69.9, adult; Z91.013 Allergy to seafood; J18.9 Pneumonia, unspecified organism
CPT/HCPCS: 36415; 36600; 71045; 80048; 82550; 82803; 83036; 84484; 84703; 85025; 85027; 85379; 87070; 87205; 93005; 93010; 93970; 94640; 94660; 94760; 96374; 96375; 99406; A9270-GY; J1644; J1956; J2270; J2920; J2930; J3475

== ENCOUNTER 2017-10-14 11:00 | Outpatient (CLI) | payer MEDICAID | END 2017-10-14 11:01 | disposition home or self-care (01) | LOC: SLR 11:00 | PROVIDERS: ATTEND Internal Medicine | DX: G47.30 Sleep apnea, unspecified (principal); E66.9 Obesity, unspecified; R40.0 Somnolence | CPT/HCPCS: 95810 ==

== ENCOUNTER 2017-10-22 00:52 | Emergency (ER) | payer MEDICAID ==
[2017-10-22] MEDS ORDERED: DUONEB *Not for PRN Use IH ONE ×3 (01:02→06:28)
[2017-10-22 01:49] LABS: Basophils # (Auto) 0.1 K/mm3 (0.0-0.1); Eosinophils # (Auto) 0.2 K/mm3 (0.0-0.4); Eosinophils % (Auto) 2.2 % (0.0-4.3); Hematocrit 38.5 % (30.3-42.9); Hemoglobin 12.7 gm/dl (10.1-14.3); Lymphocytes % (Auto) 35.8 % (13.4-35.0); Mean Corpuscular HGB Conc 33 % (30-34); Mean Corpuscular Hemoglobin 27 pg (28-32); Mean Corpuscular Volume 82 fl (79-97); Monocytes # (Auto) 0.5 K/mm3 (0.0-0.8); Monocytes % (Auto) 5.4 % (0.0-7.3); Platelet Count 163 K/mm3 (140-440); Red Blood Count 4.69 M/mm3 (3.65-5.03); Red Cell Distribution Width 15.8 % (13.2-15.2)
[2017-10-22 02:06] LABS: BUN/Creatinine Ratio 23; Blood Urea Nitrogen 14 mg/dL (7-17); Calcium 9.5 mg/dL (8.4-10.2); Hemolysis Index 7
--- NOTE | 2017-10-22 02:14 | XRay Report ---
FINAL REPORT EXAM: XR CHEST ROUTINE 2V HISTORY: Shortness of breath TECHNIQUE: PA and lateral views of the chest were obtained. PRIORS: Chest radiographs dated 09/28/2017. FINDINGS: There are no focal consolidations to suggest pneumonia. No large pleural effusion. No pneumothorax. Cardiac silhouette and mediastinal structures are unremarkable. No acute osseous abnormality identified. Mild multilevel thoracic endplate degenerative changes. IMPRESSION: No acute cardiopulmonary event.
[2017-10-22 04:46] VITALS: BP 137/81
[2017-10-22] MEDS ORDERED: MORPHINE IM ONE (04:50)
[2017-10-22] MEDS ORDERED: ZOFRAN ODT PO ONE (04:50)
[2017-10-22] MEDS ORDERED: TYLENOL PO ONE (06:28)
--- NOTE | 2017-10-22 06:29 | Emergency Department Report ---
ED General Adult HPI - General Chief complaint: Dyspnea/Respdistress Stated complaint: DIANNA Time Seen by Provider: 10/22/17 06:15 Source: patient Mode of arrival: Ambulatory Limitations: No Limitations - History of Present Illness Initial comments: Morbidly obese 41-year-old obstructive sleep apnea history with diabetes hypertension and history of cardiomyopathy here for evaluation of dizzy spells since they started her beta roman. With history of COPD and asthma. She was discharged on the seventh of this month before she had been admitted for COPD exacerbation. She was weaned off BiPAP at that time they sent her home on oxygen. She doesn't a pulmonary doctor now Dr. Geri Reed. She states that ever since she stopped steroid taper on 412 which she's had worsening shortness of breath. She's also had an dizzy spells after they started the beta roman. She denies any black or bloody stool no syncope , does haveintermittent sharp left-sided chest pain is reproducible to the chest wall no tearing pain pain no swelling no history of PE DVT -: Gradual, days(s) Radiation: non-radiation Severity scale (0 -10): 6 Quality: sharp Consistency: intermittent Associated Symptoms: denies other symptoms, shortness of breath. denies: confusion, chest pain, cough, diaphoresis, fever/chills, loss of appetite, malaise, nausea/vomiting, rash, seizure, weakness - Related Data Previous Rx's Medication Instructions Recorded Last Taken Type Cetirizine HCl [ZyrTEC] 10 mg PO PRN #30 capsule 01/14/17 Unknown Rx ALBUTEROL Inhaler [ProAir HFA 2 puff IH QID PRN 30 Days #1 10/08/17 Unknown Rx Inhaler] inhalation Albuterol Sulfate [Albuterol 0.63% 0.63 mg IH Q4HR PRN #30 ml 10/08/17 Unknown Rx NEBS] Aspirin [Aspirin TAB] 325 mg PO QDAY #30 tablet 10/08/17 Unknown Rx Budesoni/Formotero 160-4.5(Nf) 2 puff IH BID 30 Days inha 10/08/17 Unknown Rx [Symbicort 160-4.5 (Nf)] Furosemide [Lasix TAB] 20 mg PO QDAY #30 tablet 10/08/17 Unknown Rx Lipitor 40 mg PO HS #30 10/08/17 Unknown Rx guaiFENesin [Robitussin] 200 mg PO Q4H 7 Days oral.liqd 10/08/17 Unknown Rx metFORMIN [Glucophage] 1,000 mg PO BID #60 tablet 10/08/17 Unknown Rx predniSONE [Deltasone] 50 mg PO QDAY #5 tab 10/08/17 Unknown Rx predniSONE [Deltasone] 50 mg PO QDAY #5 tab 10/22/17 Unknown Rx Allergies Allergy/AdvReac Type Severity Reaction Status Date / Time iodine Allergy Rash Verified 06/09/15 01:19 shellfish derived Allergy Rash Verified 06/09/15 01:19 ED Review of Systems ROS: Stated complaint: DIANNA Other details as noted in HPI Comment: All other systems reviewed and negative Constitutional: denies: diaphoresis, fever, malaise ENT: denies: dental pain, hearing loss, epistaxis Respiratory: shortness of breath. denies: cough, orthopnea, SOB at rest, stridor Cardiovascular: chest pain. denies: palpitations, dyspnea on exertion, orthopnea, edema, syncope, paroxysmal nocturnal dyspnea Gastrointestinal: denies: abdominal pain, nausea, vomiting, diarrhea, constipation, hematemesis, melena, hematochezia Neurological: other (dizzy spells). denies: numbness, paresthesias, confusion, abnormal gait Hematological/Lymphatic: denies: easy bruising, swollen glands ED Past Medical Hx - Past Medical History Hx Hypertension: Yes Hx Congestive Heart Failure: Yes Hx Diabetes: No Hx Arthritis: Yes Hx Asthma: Yes Hx COPD: Yes Hx HIV: No Additional medical history: Sleep Apnea,.Morbid Obesity - Surgical History Additional Surgical History: x 3, orthopedic (arch replacement) - Social History Smoking Status: Never Smoker Substance Use Type: None - Medications Home Medications: Home Medications Medication Instructions Recorded Confirmed Last Taken Type Cetirizine HCl [ZyrTEC] 10 mg PO PRN #30 capsule 01/14/17 09/29/17 Unknown Rx ALBUTEROL Inhaler [ProAir HFA 2 puff IH QID PRN 30 Days #1 10/08/17 Unknown Rx Inhaler] inhalation Albuterol Sulfate [Albuterol 0.63% 0.63 mg IH Q4HR PRN #30 ml 10/08/17 Unknown Rx NEBS] Aspirin [Aspirin TAB] 325 mg PO QDAY #30 tablet 10/08/17 Unknown Rx Budesoni/Formotero 160-4.5(Nf) 2 puff IH BID 30 Days inha 10/08/17 Unknown Rx [Symbicort 160-4.5 (Nf)] Furosemide [Lasix TAB] 20 mg PO QDAY #30 tablet 10/08/17 Unknown Rx Lipitor 40 mg PO HS #30 10/08/17 Unknown Rx guaiFENesin [Robitussin] 200 mg PO Q4H 7 Days oral.liqd 10/08/17 Unknown Rx metFORMIN [Glucophage] 1,000 mg PO BID #60 tablet 10/08/17 Unknown Rx predniSONE [Deltasone] 50 mg PO QDAY #5 tab 10/08/17 Unknown Rx predniSONE [Deltasone] 50 mg PO QDAY #5 tab 10/22/17 Unknown Rx ED Physical Exam - General Limitations: No Limitations General appearance: alert, in no apparent distress, anxious, obese - Head Head exam: Present: atraumatic, normocephalic - Eye Eye exam: Present: normal appearance, PERRL, EOMI - ENT ENT exam: Present: normal exam, normal orophraynx - Neck Neck exam: Present: normal inspection. Absent: tenderness, meningismus - Respiratory Respiratory exam: Present: normal lung sounds bilaterally, chest wall tenderness. Absent: respiratory distress, wheezes, rales, rhonchi, stridor, accessory muscle use, decreased breath sounds, prolonged expiratory - Cardiovascular Cardiovascular Exam: Present: regular rate, normal rhythm, normal heart sounds. Absent: irregular rhythm, rubs, gallop - GI/Abdominal GI/Abdominal exam: Present: soft. Absent: distended, tenderness, guarding, rebound, organomegaly, mass, pulsatile mass - Extremities Exam Extremities exam: Absent: joint swelling, calf tenderness - Back Exam Back exam: Present: normal inspection. Absent: CVA tenderness (L), muscle spasm , paraspinal tenderness, vertebral tenderness - Neurological Exam Neurological exam: Present: alert, oriented X3, CN II-XII intact, other (no cerebellar findings strength equal bilaterally head CT negative). Absent: motor sensory deficit - Psychiatric Psychiatric exam: Present: normal affect, anxious - Skin Skin exam: Absent: cyanosis, diaphoretic, erythema, urticaria, vesicles, petechiae, pallor ED Course Vital Signs 10/22/17 10/22/17 10/22/17 01:25 02:18 04:44 Temperature 98.4 F Pulse Rate 95 H 90 87 Pulse Rate [ Bilateral Throughout] Respiratory 18 20 20 Rate Respiratory Rate [Bilateral Throughout] Blood Pressure 171/91 Blood Pressure 139/73 137/81 [Left] O2 Sat by Pulse 98 100 100 Oximetry 10/22/17 10/22/17 04:45 06:44 Temperature Pulse Rate Pulse Rate [ 89 Bilateral Throughout] Respiratory 20 Rate Respiratory 20 Rate [Bilateral Throughout] Blood Pressure Blood Pressure [Left] O2 Sat by Pulse 100 Oximetry ED Medical Decision Making - Lab Data Result diagrams: 10/22/17 01:37 10/22/17 01:37 - EKG Data -: EKG Interpreted by Me - EKG Data When compared to previous EKG there are: no significant change Interpretation: other (no acute ischemi change) - Radiology Data Radiology results: report reviewed - Medical Decision Making Patient with baseline evaluation. Dizzy spells or possibly related to the beta roman orthostatic hypotension. However is no evidence of GI bleed no evidence of cerebellar stroke. She has no orthostasis on exam now. Symptoms are consistent with chronic lung disease with acute exacerbation with medication side effect she is stable for outpatient follow-up Critical care attestation.: If time is entered above; I have spent that time in minutes in the direct care of this critically ill patient, excluding procedure time. ED Disposition Clinical Impression: COPD exacerbation, Morbid obesity, Medication side effect Disposition: -01 TO HOME OR SELFCARE Is pt being admited?: No Condition: Stable Instructions: Chronic Obstructive Pulmonary Disease (ED), Dizziness (ED) Additional Instructions: See her regular doctor in 2 days return if worse Prescriptions: predniSONE [Deltasone] 50 mg PO QDAY #5 tab Referrals: BRITTANY PYLE MD [Primary Care Provider] - 3-5 Days Time of Disposition: 09:25
--- NOTE | 2017-10-22 07:25 | Cat Scan Report ---
FINAL REPORT PROCEDURE: CT HEAD/BRAIN WO CON TECHNIQUE: Computerized tomography of the head was performed without contrast material. HISTORY: dizzy spells COMPARISON: No prior studies are available for comparison. FINDINGS: Skull and scalp: Normal. Paranasal sinuses: Normal. Ventricles and subarachnoid spaces: Normal. Cerebrum: No evidence of hemorrhage, acute infarction or mass . Cerebellum and brainstem: No evidence of hemorrhage, acute infarction or mass. Vasculature: Normal. Comments: None. IMPRESSION: Normal Examination
== END 2017-10-22 09:49 | disposition home or self-care (01) ==
LOC: ED 00:52
DX: J44.1 Chronic obstructive pulmonary disease with (acute) exacerbation (principal); E66.01 Morbid (severe) obesity due to excess calories
CPT/HCPCS: 36415; 70450; 71046; 80048; 83880; 84484; 84703; 85025; 93005; 93010; 94640; 96372; 99285; J2270; J2930; Q0162

== ENCOUNTER 2018-01-11 20:28 | Observation (INO) | payer MEDICAID ==
[2018-01-11] MEDS ORDERED: ASPIRIN PO ONE (20:42)
[2018-01-11 21:16] LABS: Basophils # (Auto) 0.1 K/mm3 (0.0-0.1); Eosinophils # (Auto) 0.3 K/mm3 (0.0-0.4); Eosinophils % (Auto) 2.8 % (0.0-4.3); Hematocrit 41.4 % (30.3-42.9); Hemoglobin 13.3 gm/dl (10.1-14.3); Lymphocytes # (Auto) 2.9 K/mm3 (1.2-5.4); Lymphocytes % (Auto) 29.5 % (13.4-35.0); Mean Corpuscular HGB Conc 32 % (30-34); Mean Corpuscular Hemoglobin 27 pg (28-32); Mean Corpuscular Volume 83 fl (79-97); Monocytes # (Auto) 0.7 K/mm3 (0.0-0.8); Monocytes % (Auto) 6.8 % (0.0-7.3); Platelet Count 318 K/mm3 (140-440); Red Cell Distribution Width 14.9 % (13.2-15.2)
[2018-01-11 21:26] LABS: BUN/Creatinine Ratio 14; Blood Urea Nitrogen 10 mg/dL (7-17); Calcium 10.1 mg/dL (8.4-10.2); Hemolysis Index 1
[2018-01-11] MEDS ORDERED: PERCOCET 5/325 PO ONE (21:26)
--- NOTE | 2018-01-11 21:32 | Emergency Department Report ---
ED Chest Pain HPI - General Chief Complaint: Chest Pain Stated Complaint: CHEST PAIN Time Seen by Provider: 01/11/18 20:58 Source: patient Mode of arrival: Stretcher Limitations: No Limitations - History of Present Illness Initial Comments: Ms. Rios is 42 yo female with hx of CVA, COPD, CHF, sleep apnea, severe obesity who presents with chest pain for the past 3 days. Pain is worse at night. [place] like gas initially. Zantac did not provide any relief. Pain is constant throughout the day. Sharp midsternal radiating to the left. Worse with inspiration. Worse with leaning forward. She has worsening shortness of breath. 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 She denies fever. Denies cough. MD Complaint: chest pain -: Gradual, days(s) (3) Onset: during rest Pain Location: substernal Severity: severe Severity scale (0 -10): 9 Quality: sharp Consistency: constant Worsens With: inspiration - Related Data Previous Rx's Medication Instructions Recorded Last Taken Type Cetirizine HCl [ZyrTEC] 10 mg PO PRN #30 capsule 01/14/17 Unknown Rx ALBUTEROL Inhaler [ProAir HFA 2 puff IH QID PRN 30 Days #1 10/08/17 Unknown Rx Inhaler] inhalation Albuterol Sulfate [Albuterol 0.63% 0.63 mg IH Q4HR PRN #30 ml 10/08/17 Unknown Rx NEBS] Aspirin [Aspirin TAB] 325 mg PO QDAY #30 tablet 10/08/17 Unknown Rx Budesoni/Formotero 160-4.5(Nf) 2 puff IH BID 30 Days inha 10/08/17 Unknown Rx [Symbicort 160-4.5 (Nf)] Furosemide [Lasix TAB] 20 mg PO QDAY #30 tablet 10/08/17 Unknown Rx Lipitor 40 mg PO HS #30 10/08/17 Unknown Rx guaiFENesin [Robitussin] 200 mg PO Q4H 7 Days oral.liqd 10/08/17 Unknown Rx metFORMIN [Glucophage] 1,000 mg PO BID #60 tablet 10/08/17 Unknown Rx predniSONE [Deltasone] 50 mg PO QDAY #5 tab 10/08/17 Unknown Rx predniSONE [Deltasone] 50 mg PO QDAY #5 tab 10/22/17 Unknown Rx Allergies Allergy/AdvReac Type Severity Reaction Status Date / Time iodine Allergy Rash Verified 06/09/15 01:19 shellfish derived Allergy Rash Verified 06/09/15 01:19 Heart Score - HEART Score History: Slightly suspicious EKG: Normal Age: < 45 Risk factors: > 3 risk factors or hx of atherosclerotic disease Troponin: < normal limit HEART Score: 2 ED Review of Systems ROS: Stated complaint: CHEST PAIN Other details as noted in HPI Comment: All other systems reviewed and negative Constitutional: denies: fever, malaise Respiratory: denies: cough Cardiovascular: chest pain ED Past Medical Hx - Past Medical History Previous Medical History?: Yes Hx Hypertension: Yes Hx Congestive Heart Failure: Yes Hx Diabetes: No Hx Arthritis: Yes Hx Asthma: Yes Hx COPD: Yes Hx HIV: No Additional medical history: Sleep Apnea,.Morbid Obesity - Surgical History Past Surgical History?: Yes Additional Surgical History: x 3, orthopedic (arch replacement) - Social History Smoking Status: Never Smoker Substance Use Type: Alcohol - Medications Home Medications: Home Medications Medication Instructions Recorded Confirmed Last Taken Type Cetirizine HCl [ZyrTEC] 10 mg PO PRN #30 capsule 01/14/17 09/29/17 Unknown Rx ALBUTEROL Inhaler [ProAir HFA 2 puff IH QID PRN 30 Days #1 10/08/17 Unknown Rx Inhaler] inhalation Albuterol Sulfate [Albuterol 0.63% 0.63 mg IH Q4HR PRN #30 ml 10/08/17 Unknown Rx NEBS] Aspirin [Aspirin TAB] 325 mg PO QDAY #30 tablet 10/08/17 Unknown Rx Budesoni/Formotero 160-4.5(Nf) 2 puff IH BID 30 Days inha 10/08/17 Unknown Rx [Symbicort 160-4.5 (Nf)] Furosemide [Lasix TAB] 20 mg PO QDAY #30 tablet 10/08/17 Unknown Rx Lipitor 40 mg PO HS #30 10/08/17 Unknown Rx guaiFENesin [Robitussin] 200 mg PO Q4H 7 Days oral.liqd 10/08/17 Unknown Rx metFORMIN [Glucophage] 1,000 mg PO BID #60 tablet 10/08/17 Unknown Rx predniSONE [Deltasone] 50 mg PO QDAY #5 tab 10/08/17 Unknown Rx predniSONE [Deltasone] 50 mg PO QDAY #5 tab 10/22/17 Unknown Rx ED Physical Exam - General Limitations: No Limitations General appearance: alert, in no apparent distress - Head Head exam: Present: atraumatic, normocephalic - Eye Eye exam: Present: normal appearance - ENT ENT exam: Present: mucous membranes moist - Neck Neck exam: Present: normal inspection. Absent: tenderness, meningismus - Respiratory Respiratory exam: Present: normal lung sounds bilaterally. Absent: respiratory distress, wheezes, rales, rhonchi - Cardiovascular Cardiovascular Exam: Present: regular rate, normal rhythm, normal heart sounds. Absent: bradycardia, tachycardia, systolic murmur, diastolic murmur, rubs, gallop - GI/Abdominal GI/Abdominal exam: Present: soft, normal bowel sounds. Absent: distended, tenderness, guarding, rebound - Extremities Exam Extremities exam: Present: normal inspection - Back Exam Back exam: Present: normal inspection - Neurological Exam Neurological exam: Present: alert, oriented X3 - Psychiatric Psychiatric exam: Present: normal affect, normal mood - Skin Skin exam: Present: warm, dry, intact, normal color. Absent: rash ED Course Vital Signs 01/11/18 01/11/18 01/11/18 20:44 21:01 21:40 Temperature 97.9 F Pulse Rate 90 86 Pulse Rate [ 79 Anterior] Respiratory 23 15 Rate Respiratory 19 Rate [Anterior] Blood Pressure 138/89 Blood Pressure 138/89 [Left] O2 Sat by Pulse 100 99 Oximetry 01/11/18 01/11/18 01/11/18 22:00 22:14 23:00 Temperature Pulse Rate 81 87 Pulse Rate [ Anterior] Respiratory 16 20 15 Rate Respiratory Rate [Anterior] Blood Pressure 147/82 147/83 Blood Pressure [Left] O2 Sat by Pulse 100 99 Oximetry 01/11/18 01/11/18 01/11/18 23:14 23:22 23:41 Temperature Pulse Rate Pulse Rate [ 88 Anterior] Respiratory 20 23 Rate Respiratory 15 Rate [Anterior] Blood Pressure Blood Pressure [Left] O2 Sat by Pulse 100 Oximetry 01/11/18 01/12/18 01/12/18 23:47 00:01 00:17 Temperature Pulse Rate 88 Pulse Rate [ Anterior] Respiratory 16 14 16 Rate Respiratory Rate [Anterior] Blood Pressure 115/58 Blood Pressure [Left] O2 Sat by Pulse 98 Oximetry 01/12/18 01/12/18 01/12/18 00:39 01:36 02:00 Temperature Pulse Rate Pulse Rate [ Anterior] Respiratory 16 20 Rate Respiratory Rate [Anterior] Blood Pressure 130/74 Blood Pressure [Left] O2 Sat by Pulse 99 Oximetry ED Medical Decision Making - Lab Data Result diagrams: 01/11/18 20:48 01/11/18 20:48 Vital Signs - 24 hr 01/11/18 01/11/18 01/11/18 20:44 21:40 22:14 Temperature 97.9 F Pulse Rate 90 Pulse Rate [ 79 Anterior] Respiratory 23 20 Rate Respiratory 19 Rate [Anterior] Blood Pressure 138/89 [Left] O2 Sat by Pulse 100 Oximetry 01/11/18 01/11/18 01/11/18 23:14 23:22 23:47 Temperature Pulse Rate Pulse Rate [ 88 Anterior] Respiratory 20 16 Rate Respiratory 15 Rate [Anterior] Blood Pressure [Left] O2 Sat by Pulse Oximetry 01/12/18 01/12/18 00:17 00:39 Temperature Pulse Rate Pulse Rate [ Anterior] Respiratory 16 16 Rate Respiratory Rate [Anterior] Blood Pressure [Left] O2 Sat by Pulse Oximetry - EKG Data -: EKG Interpreted by Me EKG shows normal: sinus rhythm, axis, intervals, QRS complexes, ST-T waves Rate: normal - EKG Data Interpretation: normal EKG 01/11/18 21:32 NSR nl rate nl axis nl intervals no ST-T signs of ischemia no ST elevation rate 85 bpm no signs of heart strain no signs of pericarditis 01/12/18 00:46 Second EKG without acute changes. Time obtained 0027 Rate 85 bpm normal sinus rhythm normal axis normal intervals no ST-T signs of ischemia no signs of heart strain no signs of pericarditis - Medical Decision Making Ms. Rios presents with chest pain initially at night now persistent. Worse with inspiration. Normal d-dimer with normal heart rate. Did consider PE. Patient unable to have VQ scan due to habitus. No indication of PTX or PNA on CT. Very atypical for ACS. With hx of severe obesity and sleep apnea, pain may be due to pulmonary hypertension. Admitted to hospitalist service for severe persistent chest pain. Critical care attestation.: If time is entered above; I have spent that time in minutes in the direct care of this critically ill patient, excluding procedure time. ED Disposition Clinical Impression: Chest pain Disposition: DC-09 OP ADMIT IP TO THIS HOSP Is pt being admited?: Yes Does the pt Need Aspirin: No Condition: Stable Time of Disposition: 02:35
[2018-01-11] MEDS ORDERED: PROVENTIL IH ONE (21:33)
[2018-01-11] MEDS ORDERED: ATROVENT IH ONE (21:33)
--- NOTE | 2018-01-11 22:49 | XRay Report ---
FINAL REPORT EXAM: XR CHEST 1V AP HISTORY: SOB TECHNIQUE: upright single view chest PRIORS: Comparison is October 22, 2017 FINDINGS: Cardiac and mediastinal contours are unremarkable. No focal pulmonary infiltrate is identified. No pleural fluid collection seen. Pulmonary vasculature is unremarkable. IMPRESSION: Negative single-view chest
[2018-01-11] MEDS ORDERED: DILAUDID IV ONE (23:28)
[2018-01-11] MEDS ORDERED: PROTONIX IV ONE (23:35)
[2018-01-12] MEDS ORDERED: DILAUDID IV ONE (00:02)
[2018-01-12] MEDS ORDERED: TORADOL IV ONE (00:37)
--- NOTE | 2018-01-12 01:26 | Cat Scan Report ---
FINAL REPORT EXAM: CT CHEST WO CON HISTORY: Severe chest pain TECHNIQUE: CT evaluation is performed of the chest without the use of intravenous contrast administration. Coronal and sagittal imaging also provided for interpretation. PRIORS: Chest radiographs dated 01/11/2018. FINDINGS: The pulmonary parenchyma is without evidence of interstitial or airspace disease. Cystic changes are present in the right lung apex. The heart and great vessels,pleura and diaphragms are unremarkable. There is no evidence of mediastinal, hilar, or axillary lymphadenopathy. Mild hepatic steatosis. There is no acute upper abdominal abnormality. Multilevel thoracic endplate degenerative changes. IMPRESSION: No CT evidence acute cardiopulmonary disease. Cystic changes in the right lung apex. Hepatic steatosis.
--- NOTE | 2018-01-12 01:55 | Cat Scan Report ---
FINAL REPORT EXAM: CT ABDOMEN PELVIS WO CON HISTORY: severe chest pain TECHNIQUE: CT evaluation performed of the abdomen and pelvis without IV or oral contrast administration. Coronal and sagittal imaging also provided for interpretation. PRIORS: CT abdomen and pelvis dated 03/07/2017. FINDINGS: Lower thorax: The lung bases are clear. The visualized portions of the heart are normal. Liver: No focal lesions identified of the liver. No intrahepatic biliary ductal dilation. Mild hepatic steatosis and hepatic enlargement. Gallbladder/ biliary system: No cholelithiasis. No extrahepatic biliary ductal dilation. Spleen: No splenic lesions are seen. Pancreas: No pancreatic lesions are seen. No pancreatic duct dilation. Kidneys: No kidney lesions identified. No hydronephrosis. No ureteral or renal calcifications. Adrenal glands: No adrenal masses. Vasculature: Unremarkable. Lymph nodes: No enlarged lymph nodes are seen in the abdomen or pelvis. Bowel, mesentery, peritoneum: No bowel obstruction. No colonic diverticulosis. The appendix is normal. No free intra-abdominal fluid or air. Urinary bladder: No calculi or wall thickening. Pelvis: Normal anatomy is noted. No masses. Abdominal wall: No abdominal wall hernia or subcutaneous findings. Bones: No acute osseous abnormality. Lumbar spine and hip degenerative changes. IMPRESSION: No noncontrast CT evidence of acute abdominopelvic process. Mild hepatic steatosis and hepatomegaly.
[2018-01-12] MEDS ORDERED: NITRO-BID 2% TP ONE (02:36)
[2018-01-12] MEDS ORDERED: MORPHINE IV PRN (03:10)
[2018-01-12] MEDS ORDERED: TYLENOL PO PRN (03:10)
[2018-01-12] MEDS ORDERED: ZOFRAN IV PRN (03:10)
[2018-01-12] MEDS ORDERED: SODIUM CHLORIDE FLUSH SYRINGE 10 ML IV PRN (03:10)
--- NOTE | 2018-01-12 03:15 | History and Physical Report ---
History of Present Illness Date of examination: 01/12/18 History of present illness: 42-year-old woman with a history of hypertension,CHF, asthma, COPD, sleep apnea comes emergency room with complaints of chest pain. Pain is in the epigastric area which she describes a tightness, started 3 days ago. The pain has been intermittent but has not been constant, intensity 7/10, no radiation, worse with deep breath, relief with pain medication. Admits to nausea, shortness of breath, no diaphoresis or palpitation. She had a stress test done in July which was negative Review of systems Constitutional: no weight loss, chills, fever Ears, eyes, nose, mouth and throat: no nasal congestion, no nasal discharge, no sinus pressure, no vision change, no red eye. Neck: No neck pain or rigidity. Cardiovascular: no palpitations Respiratory: no cough, shortness of breath Gastrointestinal: no abdominal pain hematochezia Genitourinary : no frequency , no hematuria Musculoskeletal: no joint swelling or muscle ache Integumentary: no rash, no pruritis Neurological: no parathesias, no numbness, no focal weakness Endocrine: no cold or heat intolerance, no polyuria or polydipsia Hematologic/Lymphatic: no easy bruising, no easy bleeding, no gland swelling Allergic/Immunologic: no urticaria, no angioedema. PAST MEDICAL HISTORY: hypertension,CHF, asthma, COPD, sleep apnea PAST SURGICAL HISTORY: 3, foot SOCIAL HISTORY: no alcohol or drugs FAMILY HISTORY: Hypertension Medications and Allergies Allergies Allergy/AdvReac Type Severity Reaction Status Date / Time iodine Allergy Rash Verified 06/09/15 01:19 shellfish derived Allergy Rash Verified 06/09/15 01:19 Home Medications Medication Instructions Recorded Confirmed Last Taken Type ALBUTEROL Inhaler [ProAir HFA 2 puff IH QID PRN 30 Days #1 10/08/17 01/12/18 Unknown Rx Inhaler] inhalation Albuterol Sulfate [Albuterol 0.63% 0.63 mg IH Q4HR PRN #30 ml 10/08/17 01/12/18 Unknown Rx NEBS] Aspirin [Aspirin TAB] 325 mg PO QDAY #30 tablet 10/08/17 01/12/18 Unknown Rx Budesoni/Formotero 160-4.5(Nf) 2 puff IH BID 30 Days inha 10/08/17 01/12/18 Unknown Rx [Symbicort 160-4.5 (Nf)] Furosemide [Lasix TAB] 20 mg PO QDAY #30 tablet 10/08/17 01/12/18 Unknown Rx metFORMIN [Glucophage] 1,000 mg PO BID #60 tablet 10/08/17 01/12/18 Unknown Rx Phentermine HCl 37.5 mg PO QAM 01/12/18 01/12/18 Unknown History Exam - Physical Exam Narrative exam: Gen. appearance: Patient lying in bed, no apparent distress HEENT: Normocephalic, atraumatic, pupils equally round and reactive to light, extraocular movement intact, and no sclericterus,. No JVD or thyromegaly or nodule,neck supple, no carotid bruit ,mucous membranes moist, no exudate or erythema Heart: S1, S2, regular rate and rhythm Lungs: Clear bilaterally, breathing comfortable Abdomen: Positive bowel sounds, non-tender, nondistended, no organomegaly Extremity:no edema cyanosis, clubbing Skin: no rash, dry, warm Neuro: Oriented 3, cranial nerves II-12 intact, speech is fluent, motor and sensory intact - Constitutional Vitals: Temp Pulse Resp BP Pulse Ox 97.9 F 85 20 130/74 99 01/11/18 20:44 01/12/18 02:53 01/12/18 01:36 01/12/18 02:53 01/12/18 02:00 Results - Labs CBC & Chem 7: 01/11/18 20:48 01/11/18 20:48 Labs: Abnormal lab results 01/11/18 01/11/18 Range/Units 20:48 20:48 MCH 27 L (28-32) pg Chloride 96.8 L (98-107) mmol/L Glucose 126 H (65-100) mg/dL - Imaging and Cardiology EKG: image reviewed Chest x-ray: image reviewed CT scan - abdomen: report reviewed CT scan - chest: report reviewed CT scan - pelvis: report reviewed Assessment and Plan Assessment Chest pain Asthma Hypertension CHF, stable Obstructive sleep apnea. Admit to medicine Check cardiac enzymes, consult cardiology Continue appropiate Outpatient medications start dvt prophylaxis
[2018-01-12 04:26] LABS: Creatine Kinase MB < 1.0 ng/mL (0.0-4.0)
--- NOTE | 2018-01-12 09:22 | Consultation ---
History of Present Illness Consult date: 01/12/18 Requesting physician: EMMANUELLE JAVIER Consult reason: chest pain History of present illness: The patient is a 42 YO female with a past medical history significant for COPD, chronic respiratory failure requiring home O2, ? obesity hypoventilation syndrome, HTN, JUDSON, CVA, morbid obesity, "congestive heart failure" after the of her child 5 years ago, tobacco use, recurrent chest pain. She is [facility] by [facility]. She presented with c/o chest pain and SOB for the past 3 days. She describes her chest pain as an intermittent, nonexertional, nonradiating midsternal pressure which is sometimes aggravated by palpation of the sternum and deep inspiration. She denies any palpitations, n/v, diphoresis, dizziness, or syncope. She underwent dobutamie stress echo 07/28/2017 which was normal. Echo done 01/2017 showed EF 55-60%, mild LVH, LA mildly dilated, mild to mod MR, mild TR, RVSP 39mmHg. Past History Past Medical History: COPD, heart failure, hypertension, stroke, other (JUDSON; ? OHS; chronic respiratory failure requiring home O2) Social history: smoking. denies: alcohol abuse, prescription drug abuse Medications and Allergies Allergies Allergy/AdvReac Type Severity Reaction Status Date / Time iodine Allergy Rash Verified 06/09/15 01:19 shellfish derived Allergy Rash Verified 06/09/15 01:19 Home Medications Medication Instructions Recorded Confirmed Last Taken Type ALBUTEROL Inhaler [ProAir HFA 2 puff IH QID PRN 30 Days #1 10/08/17 01/12/18 Unknown Rx Inhaler] inhalation Albuterol Sulfate [Albuterol 0.63% 0.63 mg IH Q4HR PRN #30 ml 10/08/17 01/12/18 Unknown Rx NEBS] Aspirin [Aspirin TAB] 325 mg PO QDAY #30 tablet 10/08/17 01/12/18 Unknown Rx Budesoni/Formotero 160-4.5(Nf) 2 puff IH BID 30 Days inha 10/08/17 01/12/18 Unknown Rx [Symbicort 160-4.5 (Nf)] Furosemide [Lasix TAB] 20 mg PO QDAY #30 tablet 10/08/17 01/12/18 Unknown Rx metFORMIN [Glucophage] 1,000 mg PO BID #60 tablet 10/08/17 01/12/18 Unknown Rx Phentermine HCl 37.5 mg PO QAM 01/12/18 01/12/18 Unknown History Active Meds: Active Medications Acetaminophen (Tylenol) 650 mg PO Q4H PRN PRN Reason: Pain MILD(1-3)/Fever >100.5/CESAR Enoxaparin Sodium (Lovenox) 40 mg SUB-Q QDAY@1000 DARIUSZ Morphine Sulfate (Morphine) 2 mg IV Q4H PRN PRN Reason: Pain, Moderate (4-6) Last Admin: 01/12/18 05:07 Dose: 2 mg Ondansetron HCl (Zofran) 4 mg IV Q8H PRN PRN Reason: Nausea And Vomiting Sodium Chloride (Sodium Chloride Flush Syringe 10 Ml) 10 ml IV BID DARIUSZ Sodium Chloride (Sodium Chloride Flush Syringe 10 Ml) 10 ml IV PRN PRN PRN Reason: LINE FLUSH Review of Systems Constitutional: no weight loss, no weight gain, no fever, no chills, no sweats Ears, nose, mouth and throat: no ear pain, no nose pain, no sinus pressure, no sinus pain Cardiovascular: chest pain, shortness of breath, dyspnea on exertion, no orthopnea, no palpitations, no rapid/irregular heart beat, no edema, no syncope , no lightheadedness Respiratory: shortness of breath, dyspnea on exertion, pain on inspiration, no cough, no congestion, no wheezing Gastrointestinal: indigestion, no abdominal pain, no nausea, no vomiting, no diarrhea, no constipation, no change in bowel habits Genitourinary Female: no pelvic pain, no flank pain, no dysuria, no urinary frequency, no urgency Musculoskeletal: no neck stiffness, no neck pain, no shooting arm pain, no arm numbness/tingling, no low back pain, no shooting leg pain, no leg numbness/ tingling, no redness of joints Integumentary: no rash, no pruritis, no redness, no sores, no wounds Neurological: no head injury, no paralysis, no weakness, no parathesias, no numbness, no tingling, no seizures, no syncope Psychiatric: no anxiety Endocrine: no cold intolerance, no heat intolerance Hematologic/Lymphatic: no easy bruising, no easy bleeding Allergic/Immunologic: no urticaria, no wheezing Physical Examination Vital Signs Temp Pulse Resp BP Pulse Ox 97.9 F 90 23 138/89 100 01/11/18 20:44 01/11/18 20:44 01/11/18 20:44 01/11/18 20:44 01/11/18 20:44 General appearance: no acute distress HEENT: Positive: PERRL, Normocephaly, Mucus Membranes Moist Neck: Positive: neck supple, trachea midline Cardiac: Positive: Reg Rate and Rhythm, S1/S2 Lungs: Positive: clear to auscultation Neuro: Positive: Grossly Intact, Cranial Nerve 2-12 Intact Abdomen: Positive: Soft. Negative: Tender Skin: Positive: Clear. Negative: Rash, Wound Musculoskeletal: No Fluid Collection, No Pain, Normal Range of Motion Extremities: Absent: edema Results 01/11/18 20:48 01/11/18 20:48 Cardiac Enzymes 01/12/18 Range/Units 03:48 CK-MB (CK-2) < 1.0 (0.0-4.0) ng/mL CBC 01/11/18 Range/Units 20:48 WBC 9.9 (4.5-11.0) K/mm3 RBC 5.00 (3.65-5.03) M/mm3 Hgb 13.3 (10.1-14.3) gm/dl Hct 41.4 (30.3-42.9) % Plt Count 318 (140-440) K/mm3 Lymph # 2.9 (1.2-5.4) K/mm3 [place] # 0.7 (0.0-0.8) K/mm3 Eos # 0.3 (0.0-0.4) K/mm3 Baso # 0.1 (0.0-0.1) K/mm3 Comprehensive Metabolic Panel 01/11/18 Range/Units 20:48 Sodium 138 (137-145) mmol/L Potassium 3.9 (3.6-5.0) mmol/L Chloride 96.8 L (98-107) mmol/L Carbon Dioxide 26 (22-30) mmol/L BUN 10 (7-17) mg/dL Creatinine 0.7 (0.7-1.2) mg/dL Glucose 126 H (65-100) mg/dL Calcium 10.1 (8.4-10.2) mg/dL - Imaging and Cardiology Echo: report reviewed (01/2017 showed EF 55-60%, mild LVH, LA mildly dilated, mild to mod MR, mild TR, RVSP 39mmHg. ) EKG: report reviewed, image reviewed EKG interpretations - Telemetry EKG Rhythm: Sinus Rhythm - EKG Sinus rhythms and dysrhythmias: sinus rhythm Assessment and Plan Pt underwent dobutamie stress echo 07/28/2017 which was normal. CXR with NAF. Chest CTA negative for PE. Ilana negative for AMI. ECG with no acute ischemic changes. Given atypical and recurrent nature of pt's chest pain with recent negative dobutamine stress echo, no plans for repeat ischemic evaluation or echo at this time. Currently stable cardiac status. Recommend resuming home cardiac regimen. Will follow on as needed basis. The patient has been seen in conjunction with Dr. Hanks who agrees with the assessment and plan of care. - Patient Problems (1) Atypical chest pain Current Visit: Yes Status: Acute (2) HTN (hypertension) Current Visit: Yes Status: Chronic (3) COPD (chronic obstructive pulmonary disease) Current Visit: Yes Status: Chronic (4) Chronic respiratory failure Current Visit: Yes Status: Chronic (5) Sleep apnea Current Visit: Yes Status: Chronic (6) History of heart failure Current Visit: Yes Status: Chronic (7) History of CVA (cerebrovascular accident) Current Visit: Yes Status: Chronic (8) Morbid obesity Current Visit: Yes Status: Chronic (9) Tobacco use Current Visit: Yes Status: Chronic
--- NOTE | 2018-01-12 09:47 | Discharge Summary ---
Providers - Providers Date of Admission: 01/12/18 03:10 Date of discharge: 01/12/18 Attending physician: NIURKA BYERS 01/12/18 03:10 Consult to Physician [CONS] Routine Comment: Consulting Provider: GIOVANNA PRESTON Physician Instructions: Reason For Exam: cp Primary care physician: EDWIN MCKEON MD Hospitalization Reason for admission: cp Condition: Stable Hospital course: The patient is a 42 YO female with a past medical history significant for COPD, chronic respiratory failure requiring home O2, ? obesity hypoventilation syndrome, HTN, JUDSON, CVA, morbid obesity, CHF, tobacco use, recurrent chest pain. She is followed by [facility]. She presented with c/o chest pain and SOB for the past 3 days prior to admission. She described her chest pain as an intermittent , nonexertional, nonradiating midsternal pressure which is sometimes aggravated by palpation of the sternum and deep inspiration. She denies any palpitations, n /v, diphoresis, dizziness, or syncope. The patient's chest pain has resolved. She underwent dobutamine stress echo 07/28/2017 which was normal. Echo done 01/2017 showed EF 55-60%, mild LVH, LA mildly dilated, mild to mod MR, mild TR, RVSP 39mmHg. The patient had a chest x-ray and CTA of the chest which were both negative Ilana negative for AMI. ECG with no acute ischemic changes. Cardiology saw the patient in consultation and felt that given atypical and recurrent nature of pt' s chest pain with recent negative dobutamine stress echo, no plans for repeat ischemic evaluation or echo at this time. Etiology of chest pain is likely costochondritis given the chin with palpation. Cardiology recommended resuming home cardiac regimen. Dedicated discharge time 32 minutes. Disposition: DC-01 TO HOME OR SELFCARE Time spent for discharge: 32 - Discharge Diagnoses (1) Atypical chest pain Status: Acute (2) COPD (chronic obstructive pulmonary disease) Status: Chronic (3) COPD exacerbation Status: Chronic (4) HTN (hypertension) Status: Chronic Core Measure Documentation - Palliative Care Palliative Care/ Comfort Measures: Not Applicable - Core Measures Any of the following diagnoses?: none Exam - Constitutional Vitals: Temp Pulse Resp BP Pulse Ox 97.6 F 76 13 136/70 99 01/12/18 06:10 01/12/18 08:20 01/12/18 08:20 01/12/18 08:20 01/12/18 08:20 General appearance: Present: no acute distress, well-nourished - EENT Eyes: Present: PERRL ENT: hearing intact, clear oral mucosa - Neck Neck: Present: supple, normal ROM - Respiratory Respiratory effort: normal Respiratory: bilateral: CTA - Cardiovascular Heart Sounds: Present: S1 & S2. Absent: rub, click - Extremities Extremities: pulses symmetrical, No edema Peripheral Pulses: within normal limits - Abdominal General gastrointestinal: Present: soft, non-tender, non-distended, normal bowel sounds Female genitourinary: Present: normal - Integumentary Integumentary: Present: clear, warm, dry - Musculoskeletal Musculoskeletal: gait normal, strength equal bilaterally - Psychiatric Psychiatric: appropriate mood/affect, intact judgment & insight - Neurologic Neurologic: CNII-XII intact, moves all extremities Plan Activity: advance as tolerated Weight Bearing Status: Weight Bear as Tolerated Diet: regular Follow up with: EDWIN MCKEON MD [Primary Care Provider] - 7 Days MAG STARKS MD [Staff Physician] - 7 Days Prescriptions: ALBUTEROL Inhaler [ProAir HFA Inhaler] 2 puff IH QID PRN 30 Days #1 inhalation PRN Reason: Shortness Of Breath Albuterol Sulfate [Albuterol 0.63% NEBS] 0.63 mg IH Q4HR PRN #30 ml PRN Reason: Wheezing Aspirin [Aspirin TAB] 325 mg PO QDAY #30 tablet Budesoni/Formotero 160-4.5(Nf) [Symbicort 160-4.5 (Nf)] 2 puff IH BID 30 Days inha Furosemide [Lasix TAB] 20 mg PO QDAY #30 tablet metFORMIN [Glucophage] 1,000 mg PO BID #60 tablet oxyCODONE /ACETAMINOPHEN [Percocet 5/325] 1 tab PO Q4HR #10 tab
[2018-01-12] MEDS ORDERED: LOVENOX SUB-Q SCH ×2 (10:00)
[2018-01-12] MEDS ORDERED: SODIUM CHLORIDE FLUSH SYRINGE 10 ML IV SCH (10:00)
[2018-01-12 10:36] LABS: Creatine Kinase MB < 1.0 ng/mL (0.0-4.0)
[2018-01-12 11:35] VITALS: BP 146/93
--- NOTE | 2018-01-12 12:47 | Query- Chest Pain ---
Farrukh Arthur Date:___01/12/2018 Yared/CDS:___Gail Phone#:___[phone] Exercise your independent professional judgment when responding to query. Questions asked do not imply a particular answer is desired or expected. We greatly appreciate your clarification on this issue. Clinical Documentation States: 42 Year old female was admitted on 01/12/2018 for chest pain. The Cardiology consult note states "She describes her chest pain as an intermittent, nonexertional, nonradiating midsternal pressure which is sometimes aggravated by palpation of the sternum and deep inspiration." The Discharge summary states "(1) Atypical chest pain Current Visit: Yes Status: Acute." Please document the etiology of Chest Pain: [ ] Myocardial Infarction [ ] Pneumonia [ ] Mediastinitis [x ] Costochondritis [ ] Pulmonary Embolism [ ] Coronary Artery Disease [ ] GERD [ ] Other: [ ] Comment/Explanation: Present on Admission: [x ] Yes (Y) [ ] Clinically undeterminable (W) [ ] No(N) Please document response in your Progress Notes and/or Discharge Summary and indicate if the condition was present on admission. YANICK
== END 2018-01-12 11:45 | disposition home or self-care (01) ==
LOC: ED 20:28 → 4A 01-12 03:10 → INTOOBSV 01-12 03:10
PROVIDERS: ADMIT Internal Medicine; ATTEND Hospitalist
DX: R07.89 Other chest pain (principal); J44.1 Chronic obstructive pulmonary disease with (acute) exacerbation; I11.0 Hypertensive heart disease with heart failure; I50.9 Heart failure, unspecified; G47.33 Obstructive sleep apnea (adult) (pediatric); M19.90 Unspecified osteoarthritis, unspecified site; E66.01 Morbid (severe) obesity due to excess calories; Z82.49 Family history of ischemic heart disease and other diseases of the circulatory system; Z79.51 Long term (current) use of inhaled steroids; Z68.43 Body mass index [BMI] 50.0-59.9, adult; Z79.899 Other long term (current) drug therapy; Z79.84 Long term (current) use of oral hypoglycemic drugs; Z91.041 Radiographic dye allergy status; Z91.013 Allergy to seafood; Z86.73 Personal history of transient ischemic attack (TIA), and cerebral infarction without residual deficits
CPT/HCPCS: 36415; 71045; 71250; 74176; 80048; 82550; 82553; 84484; 85025; 85379; 93005; 93010; 94640; 96374; 96375; 99285; C9113; G0378; J1170; J1885; J2270

== ENCOUNTER → 2018-02-15 | Outpatient (CLI) | payer MEDICAID | END | disposition home or self-care (01) | LOC: SLR 11:00 | PROVIDERS: ATTEND Internal Medicine | DX: G47.33 Obstructive sleep apnea (adult) (pediatric) (principal); I10 Essential (primary) hypertension; E66.01 Morbid (severe) obesity due to excess calories; J44.1 Chronic obstructive pulmonary disease with (acute) exacerbation; E66.9 Obesity, unspecified; M19.90 Unspecified osteoarthritis, unspecified site; Z91.048 Other nonmedicinal substance allergy status; Z86.73 Personal history of transient ischemic attack (TIA), and cerebral infarction without residual deficits; Z91.013 Allergy to seafood; Z87.891 Personal history of nicotine dependence | CPT/HCPCS: 95811 ==

== ENCOUNTER 2018-07-12 00:37 | Emergency (ER) | payer MEDICAID ==
[2018-07-12] MEDS ORDERED: ATROVENT IH ONE ×2 (00:50→01:11)
[2018-07-12] MEDS ORDERED: PROVENTIL IH ONE ×2 (00:50→01:11)
[2018-07-12 01:04] VITALS: BP 138/90
[2018-07-12] MEDS ORDERED: NACL 0.9% 1000 ML 1,000 ML IV ONE (01:11)
[2018-07-12] MEDS ORDERED: ZOFRAN IV ONE (01:11)
[2018-07-12] MEDS ORDERED: MORPHINE IV ONE (01:11)
[2018-07-12 01:36] LABS: Basophils # (Auto) 0.1 K/mm3 (0.0-0.1); Basophils % (Auto) 1.1 % (0.0-1.8); Eosinophils # (Auto) 0.2 K/mm3 (0.0-0.4); Eosinophils % (Auto) 1.6 % (0.0-4.3); Hematocrit 43.3 % (30.3-42.9); Hemoglobin 13.8 gm/dl (10.1-14.3); Lymphocytes # (Auto) 4.4 K/mm3 (1.2-5.4); Lymphocytes % (Auto) 37.1 % (13.4-35.0); Mean Corpuscular HGB Conc 32 % (30-34); Mean Corpuscular Volume 83 fl (79-97); Monocytes # (Auto) 0.8 K/mm3 (0.0-0.8); Monocytes % (Auto) 6.4 % (0.0-7.3); Platelet Count 293 K/mm3 (140-440); Red Blood Count 5.25 M/mm3 (3.65-5.03); Red Cell Distribution Width 16.1 % (13.2-15.2)
[2018-07-12 01:47] LABS: BUN/Creatinine Ratio 15; Blood Urea Nitrogen 9 mg/dL (7-17); Calcium 9.4 mg/dL (8.4-10.2); Hemolysis Index 31
--- NOTE | 2018-07-12 01:47 | XRay Report ---
FINAL REPORT EXAM: XR CHEST 1V AP HISTORY: cough COMPARISON: January 2018. FINDINGS: Frontal view(s) of the chest obtained. Cardiac silhouette within normal limits. No gross consolidatio n or effusion. No pneumothorax. IMPRESSION: No grossly acute findings.
--- NOTE | 2018-07-12 03:44 | Emergency Department Report ---
ED General Adult HPI - General Chief complaint: Dyspnea/Respdistress Stated complaint: DIANNA Time Seen by Provider: 07/12/18 01:07 Source: patient, family, EMS Mode of arrival: Stretcher Limitations: No Limitations - History of Present Illness Initial comments: She is a 42-year-old black female who has a past medical history of lupus as well as asthma and CHF COPD and hypertension who is presenting with about 2-3 days of generalized body aches cough congestion and wheezing. Patient received a nebulizer treatment prior to arrival. Patient denies any nausea vomiting. Patient states she does have some sore throat as well. Patient states the pain in her lower back and arms and legs to 10 out of 10. Severity scale (0 -10): 10 - Related Data Home Medications Medication Instructions Recorded Confirmed Last Taken Phentermine HCl 37.5 mg PO QAM 01/12/18 02/21/18 Unknown Metoprolol Tartrate 25 mg PO BID 02/21/18 02/21/18 02/20/18 Naproxen [Naprosyn] 500 mg PO BID PRN 02/22/18 02/22/18 Unknown Previous Rx's Medication Instructions Recorded Last Taken Type ALBUTEROL Inhaler (OR & NICU) 2 puff IH QID PRN 30 Days #1 01/12/18 Unknown Rx [ProAir HFA Inhaler] inhalation Albuterol Sulfate [Albuterol 0.63% 0.63 mg IH Q4HR PRN #30 ml 01/12/18 Unknown Rx NEBS] Aspirin [Aspirin TAB] 325 mg PO QDAY #30 tablet 01/12/18 Unknown Rx Budesoni/Formotero 160-4.5(Nf) 2 puff IH BID 30 Days inha 01/12/18 Unknown Rx [Symbicort 160-4.5 (Nf)] Furosemide [Lasix TAB] 20 mg PO QDAY #30 tablet 01/12/18 Unknown Rx metFORMIN [Glucophage] 1,000 mg PO BID #60 tablet 01/12/18 Unknown Rx oxyCODONE /ACETAMINOPHEN [Percocet 1 tab PO Q4HR #10 tab 02/22/18 Unknown Rx 5/325 mg] ALBUTEROL NEB's [Proventil 0.083% 5 mg IH TID PRN #20 neb 07/12/18 Unknown Rx NEBS] HYDROcodone/APAP 5-325 [[place] 1 each PO Q6HR PRN #15 tablet 07/12/18 Unknown Rx 5/325] predniSONE [Deltasone] 10 mg PO .TAPER #21 tab 07/12/18 Unknown Rx Allergies Allergy/AdvReac Type Severity Reaction Status Date / Time iodine Allergy Rash Verified 06/09/15 01:19 shellfish derived Allergy Rash Verified 06/09/15 01:19 ED Review of Systems ROS: Stated complaint: DIANNA Other details as noted in HPI Comment: All other systems reviewed and negative ED Past Medical Hx - Past Medical History Hx Hypertension: Yes Hx Congestive Heart Failure: Yes Hx Diabetes: No Hx Arthritis: Yes Hx Asthma: Yes Hx COPD: Yes Hx HIV: No Additional medical history: Sleep Apnea,.Morbid Obesity - Surgical History Additional Surgical History: x 3, orthopedic (arch replacement) - Social History Smoking Status: Never Smoker Substance Use Type: None - Medications Home Medications: Home Medications Medication Instructions Recorded Confirmed Last Taken Type ALBUTEROL Inhaler (OR & NICU) 2 puff IH QID PRN 30 Days #1 01/12/18 02/21/18 Unknown Rx [ProAir HFA Inhaler] inhalation Albuterol Sulfate [Albuterol 0.63% 0.63 mg IH Q4HR PRN #30 ml 01/12/18 02/21/18 Unknown Rx NEBS] Aspirin [Aspirin TAB] 325 mg PO QDAY #30 tablet 01/12/18 02/21/18 Unknown Rx Budesoni/Formotero 160-4.5(Nf) 2 puff IH BID 30 Days inha 01/12/18 02/21/18 Unknown Rx [Symbicort 160-4.5 (Nf)] Furosemide [Lasix TAB] 20 mg PO QDAY #30 tablet 01/12/18 02/21/18 Unknown Rx Phentermine HCl 37.5 mg PO QAM 01/12/18 02/21/18 Unknown History metFORMIN [Glucophage] 1,000 mg PO BID #60 tablet 01/12/18 02/21/18 Unknown Rx Metoprolol Tartrate 25 mg PO BID 02/21/18 02/21/18 02/20/18 History Naproxen [Naprosyn] 500 mg PO BID PRN 02/22/18 02/22/18 Unknown History oxyCODONE /ACETAMINOPHEN [Percocet 1 tab PO Q4HR #10 tab 02/22/18 Unknown Rx 5/325 mg] ALBUTEROL NEB's [Proventil 0.083% 5 mg IH TID PRN #20 neb 07/12/18 Unknown Rx NEBS] HYDROcodone/APAP 5-325 [[place] 1 each PO Q6HR PRN #15 tablet 07/12/18 Unknown Rx 5/325] predniSONE [Deltasone] 10 mg PO .TAPER #21 tab 07/12/18 Unknown Rx ED Physical Exam - General Limitations: No Limitations General appearance: alert, in no apparent distress - Head Head exam: Present: atraumatic, normocephalic - Eye Eye exam: Present: normal appearance - ENT ENT exam: Present: mucous membranes moist - Neck Neck exam: Present: normal inspection - Respiratory Respiratory exam: Present: normal lung sounds bilaterally, decreased breath sounds. Absent: respiratory distress, wheezes, rales, rhonchi - Cardiovascular Cardiovascular Exam: Present: regular rate, normal rhythm. Absent: systolic murmur, diastolic murmur, rubs, gallop - GI/Abdominal GI/Abdominal exam: Present: soft, normal bowel sounds. Absent: distended, tenderness, guarding, rebound - Extremities Exam Extremities exam: Present: normal inspection - Back Exam Back exam: Present: normal inspection - Neurological Exam Neurological exam: Present: alert, oriented X3 - Psychiatric Psychiatric exam: Present: normal affect, normal mood - Skin Skin exam: Present: warm, dry, intact, normal color. Absent: rash ED Course Vital Signs 07/12/18 07/12/18 00:59 01:35 Temperature 98.3 F Pulse Rate 104 H Respiratory 20 20 Rate Blood Pressure 138/90 [Left] O2 Sat by Pulse 100 99 Oximetry ED Medical Decision Making - Lab Data Result diagrams: 07/12/18 01:22 07/12/18 01:22 Lab Results 07/12/18 07/12/18 07/12/18 Range/Units 01:22 01:22 02:50 WBC 11.8 H (4.5-11.0) K/mm3 RBC 5.25 H (3.65-5.03) M/mm3 Hgb 13.8 (10.1-14.3) gm/dl Hct 43.3 H (30.3-42.9) % MCV 83 (79-97) fl MCH 26 L (28-32) pg MCHC 32 (30-34) % RDW 16.1 H (13.2-15.2) % Plt Count 293 (140-440) K/mm3 Lymph % (Auto) 37.1 H (13.4-35.0) % [place] % (Auto) 6.4 (0.0-7.3) % Eos % (Auto) 1.6 (0.0-4.3) % Baso % (Auto) 1.1 (0.0-1.8) % Lymph # 4.4 (1.2-5.4) K/mm3 [place] # 0.8 (0.0-0.8) K/mm3 Eos # 0.2 (0.0-0.4) K/mm3 Baso # 0.1 (0.0-0.1) K/mm3 Seg Neutrophils % 53.8 (40.0-70.0) % Seg Neutrophils # 6.4 (1.8-7.7) K/mm3 Sodium 137 (137-145) mmol/L Potassium 3.9 (3.6-5.0) mmol/L Chloride 99.5 (98-107) mmol/L Carbon Dioxide 26 (22-30) mmol/L Anion Gap 15 mmol/L BUN 9 (7-17) mg/dL Creatinine 0.6 L (0.7-1.2) mg/dL Estimated GFR > 60 ml/min BUN/Creatinine Ratio 15 % Glucose 119 H (65-100) mg/dL Calcium 9.4 (8.4-10.2) mg/dL Influenza A (Rapid) Negative (Negative) Influenza B (Rapid) Negative (Negative) Group A Strep Rapid Negative (Negative) - Radiology Data Chest x-ray shows no acute process. There is no acute infiltrates or evidence of pulmonary edema - Medical Decision Making Patient has some decreased air movement on arrival. Patient was given an hour- long nebulizer treatment and was moving air much better afterwards. Patient was some generalized body aches. Patient with a flulike illness or she could have also a flareup of her lupus. Patient to be discharged home at this time. Given this was symptomatic relief. Critical care attestation.: If time is entered above; I have spent that time in minutes in the direct care of this critically ill patient, excluding procedure time. ED Disposition Clinical Impression: Flu-like symptoms, URI (upper respiratory infection) Disposition: DC-01 TO HOME OR SELFCARE Is pt being admited?: No Does the pt Need Aspirin: No Condition: Stable Instructions: Viral Syndrome (ED) Referrals: PRIMARY CARE, [Primary Care Provider] - 3-5 Days Time of Disposition: 03:44
[2018-07-12] MEDS ORDERED: NORCO 7.5/325 PO ONE (03:49)
[2018-07-12] MEDS ORDERED: NORCO 7.5/325 ONE (03:53)
== END 2018-07-12 04:20 | disposition home or self-care (01) ==
LOC: ED 00:37
DX: J06.9 Acute upper respiratory infection, unspecified (principal); I11.0 Hypertensive heart disease with heart failure; M19.90 Unspecified osteoarthritis, unspecified site; J44.9 Chronic obstructive pulmonary disease, unspecified; G47.30 Sleep apnea, unspecified; E66.01 Morbid (severe) obesity due to excess calories; Z68.41 Body mass index [BMI] 40.0-44.9, adult; Z79.82 Long term (current) use of aspirin; Z91.013 Allergy to seafood; Z91.041 Radiographic dye allergy status
CPT/HCPCS: 36415; 71045; 80048; 85025; 87116; 87400; 87430; 96374; 96375; 99285; J2270; J2405; J7030

== ENCOUNTER 2018-09-29 15:40 | Inpatient (IN) | payer MEDICAID ==
[2018-09-29] MEDS ORDERED: PROVENTIL IH ONE ×2 (15:54→16:35)
[2018-09-29] MEDS ORDERED: ATROVENT IH ONE ×2 (15:54→16:35)
[2018-09-29] MEDS ORDERED: ASPIRIN PO ONE (16:00)
[2018-09-29] MEDS ORDERED: SOLU-Medrol IV ONE (16:14)
[2018-09-29] MEDS ORDERED: MAGNESIUM SULFATE 40GM/1000ML 40 GM/1,000 ML BAG IV ONE (16:14)
[2018-09-29] MEDS ORDERED: MAGNESIUM SULFATE 2GM/50ML 2 GM/50 ML BAG IV ONE (16:19)
--- NOTE | 2018-09-29 16:24 | XRay Report ---
PROCEDURE: XR CHEST 1V AP TECHNIQUE: Chest radiograph, AP portable upright view. HISTORY: Chest Pain COMPARISONS: Chest x-ray July 12, 2018. FINDINGS: Cardiac silhouette is within normal limits. There is no effusion. There is no pneumothorax. There is no consolidation. There are no suspicious osseous lesions. IMPRESSION: * No acute cardiopulmonary findings. This document is electronically signed by Mikey Lewis MD., September 29 2018 04:22:20 PM ET
[2018-09-29] MEDS ORDERED: ADRENALINE P/F SUB-Q ONE (16:32)
[2018-09-29 16:36] LABS: Basophils # (Auto) 0.1 K/mm3 (0.0-0.1); Basophils % (Auto) 1.2 % (0.0-1.8); Eosinophils # (Auto) 0.2 K/mm3 (0.0-0.4); Eosinophils % (Auto) 2.8 % (0.0-4.3); Hematocrit 39.2 % (30.3-42.9); Hemoglobin 12.6 gm/dl (10.1-14.3); Lymphocytes # (Auto) 2.8 K/mm3 (1.2-5.4); Lymphocytes % (Auto) 38.9 % (13.4-35.0); Mean Corpuscular HGB Conc 32 % (30-34); Mean Corpuscular Volume 84 fl (79-97); Monocytes # (Auto) 0.6 K/mm3 (0.0-0.8); Monocytes % (Auto) 8.1 % (0.0-7.3); Platelet Count 288 K/mm3 (140-440); Red Blood Count 4.69 M/mm3 (3.65-5.03); Red Cell Distribution Width 16.1 % (13.2-15.2)
[2018-09-29 16:46] LABS: Alanine Aminotransferase 30 units/L (7-56); Albumin 3.9 g/dL (3.9-5); BUN/Creatinine Ratio 12; Blood Urea Nitrogen 7 mg/dL (7-17); Hemolysis Index 0
--- NOTE | 2018-09-29 17:40 | Emergency Department Report ---
ED General Adult HPI - General Chief complaint: Adult Asthma Stated complaint: CHEST PAIN/ASTHMA Time Seen by Provider: 09/29/18 16:08 Source: patient Mode of arrival: Ambulatory Limitations: No Limitations - History of Present Illness Initial comments: Patient presents to emergency department with a complaint of shortness of breath. The patient has a history of asthma with multiple intubations in the past. Patient has had difficulty breathing for the last couple of days without relief from her home nebulizer. Patient denies chest pain, headache, or abdominal pain -: Gradual Severity scale (0 -10): 0 Consistency: constant Improves with: none Worsens with: none Associated Symptoms: denies other symptoms Treatments Prior to Arrival: none - Related Data Home Medications Medication Instructions Recorded Confirmed Last Taken Phentermine HCl 37.5 mg PO QAM 01/12/18 02/21/18 Unknown Metoprolol Tartrate 25 mg PO BID 02/21/18 02/21/18 02/20/18 Naproxen [Naprosyn] 500 mg PO BID PRN 02/22/18 02/22/18 Unknown Previous Rx's Medication Instructions Recorded Last Taken Type ALBUTEROL Inhaler (OR & NICU) 2 puff IH QID PRN 30 Days #1 01/12/18 Unknown Rx [ProAir HFA Inhaler] inhalation Albuterol Sulfate [Albuterol 0.63% 0.63 mg IH Q4HR PRN #30 ml 01/12/18 Unknown Rx NEBS] Aspirin [Aspirin TAB] 325 mg PO QDAY #30 tablet 01/12/18 Unknown Rx Budesoni/Formotero 160-4.5(Nf) 2 puff IH BID 30 Days inha 01/12/18 Unknown Rx [Symbicort 160-4.5 (Nf)] Furosemide [Lasix TAB] 20 mg PO QDAY #30 tablet 01/12/18 Unknown Rx metFORMIN [Glucophage] 1,000 mg PO BID #60 tablet 01/12/18 Unknown Rx oxyCODONE /ACETAMINOPHEN [Percocet 1 tab PO Q4HR #10 tab 02/22/18 Unknown Rx 5/325 mg] ALBUTEROL NEB's [Proventil 0.083% 5 mg IH TID PRN #20 neb 07/12/18 Unknown Rx NEBS] HYDROcodone/APAP 5-325 [[place] 1 each PO Q6HR PRN #15 tablet 07/12/18 Unknown Rx 5/325] predniSONE [Deltasone] 10 mg PO .TAPER #21 tab 07/12/18 Unknown Rx Allergies Allergy/AdvReac Type Severity Reaction Status Date / Time iodine Allergy Rash Verified 09/29/18 15:56 shellfish derived Allergy Rash Verified 09/29/18 15:56 ED Review of Systems ROS: Stated complaint: CHEST PAIN/ASTHMA Other details as noted in HPI Constitutional: denies: chills, fever Eyes: denies: eye pain, eye discharge, vision change ENT: denies: ear pain, throat pain Respiratory: shortness of breath, wheezing. denies: cough Cardiovascular: denies: chest pain, palpitations Endocrine: no symptoms reported Gastrointestinal: denies: abdominal pain, nausea, diarrhea Genitourinary: denies: urgency, dysuria, discharge Musculoskeletal: denies: back pain, joint swelling, arthralgia Skin: denies: rash, lesions Neurological: denies: headache, weakness, paresthesias Psychiatric: denies: anxiety, depression Hematological/Lymphatic: denies: easy bleeding, easy bruising ED Past Medical Hx - Past Medical History Hx Hypertension: Yes Hx Congestive Heart Failure: Yes Hx Diabetes: No Hx Arthritis: Yes Hx Asthma: Yes Hx COPD: Yes Hx HIV: No Additional medical history: Sleep Apnea,.Morbid Obesity - Surgical History Additional Surgical History: x 3, orthopedic (arch replacement) - Social History Smoking Status: Never Smoker Substance Use Type: Alcohol - Medications Home Medications: Home Medications Medication Instructions Recorded Confirmed Last Taken Type ALBUTEROL Inhaler (OR & NICU) 2 puff IH QID PRN 30 Days #1 01/12/18 02/21/18 Unknown Rx [ProAir HFA Inhaler] inhalation Albuterol Sulfate [Albuterol 0.63% 0.63 mg IH Q4HR PRN #30 ml 01/12/18 02/21/18 Unknown Rx NEBS] Aspirin [Aspirin TAB] 325 mg PO QDAY #30 tablet 01/12/18 02/21/18 Unknown Rx Budesoni/Formotero 160-4.5(Nf) 2 puff IH BID 30 Days inha 01/12/18 02/21/18 Unknown Rx [Symbicort 160-4.5 (Nf)] Furosemide [Lasix TAB] 20 mg PO QDAY #30 tablet 01/12/18 02/21/18 Unknown Rx Phentermine HCl 37.5 mg PO QAM 01/12/18 02/21/18 Unknown History metFORMIN [Glucophage] 1,000 mg PO BID #60 tablet 01/12/18 02/21/18 Unknown Rx Metoprolol Tartrate 25 mg PO BID 02/21/18 02/21/18 02/20/18 History Naproxen [Naprosyn] 500 mg PO BID PRN 02/22/18 02/22/18 Unknown History oxyCODONE /ACETAMINOPHEN [Percocet 1 tab PO Q4HR #10 tab 02/22/18 Unknown Rx 5/325 mg] ALBUTEROL NEB's [Proventil 0.083% 5 mg IH TID PRN #20 neb 07/12/18 Unknown Rx NEBS] HYDROcodone/APAP 5-325 [[place] 1 each PO Q6HR PRN #15 tablet 07/12/18 Unknown Rx 5/325] predniSONE [Deltasone] 10 mg PO .TAPER #21 tab 07/12/18 Unknown Rx ED Physical Exam - General Limitations: No Limitations General appearance: alert, in no apparent distress - Head Head exam: Present: atraumatic, normocephalic - Eye Eye exam: Present: normal appearance, PERRL, EOMI - ENT ENT exam: Present: mucous membranes moist - Neck Neck exam: Present: normal inspection - Respiratory Respiratory exam: Present: normal lung sounds bilaterally, other (the patient is tight on exam and there is no distinguishable breath sounds on exam besides expiratory wheezing; patient is using her sensory muscles to breathe and his arrest or distress). Absent: respiratory distress - Cardiovascular Cardiovascular Exam: Present: normal rhythm, tachycardia. Absent: systolic murmur, diastolic murmur, rubs, gallop - GI/Abdominal GI/Abdominal exam: Present: soft, normal bowel sounds. Absent: distended, ten derness - Extremities Exam Extremities exam: Present: normal inspection - Back Exam Back exam: Present: normal inspection - Neurological Exam Neurological exam: Present: alert, oriented X3, CN II-XII intact. Absent: motor sensory deficit - Psychiatric Psychiatric exam: Present: normal affect, normal mood - Skin Skin exam: Present: warm, dry, intact, normal color. Absent: rash ED Course Vital Signs 09/29/18 09/29/18 09/29/18 15:50 15:53 18:33 Temperature 98.5 F Pulse Rate 100 H 90 Pulse Rate [ 95 H Anterior Bilateral Throughout] Respiratory 28 H 20 Rate Respiratory 26 H Rate [Anterior Bilateral Throughout] Blood Pressure 154/99 Blood Pressure 137/83 [Right] O2 Sat by Pulse 98 97 Oximetry ED Medical Decision Making - Lab Data Result diagrams: 09/29/18 16:13 09/29/18 16:19 Lab Results 09/29/18 09/29/18 Range/Units 16:13 16:19 WBC 7.3 (4.5-11.0) K/mm3 RBC 4.69 (3.65-5.03) M/mm3 Hgb 12.6 (10.1-14.3) gm/dl Hct 39.2 (30.3-42.9) % MCV 84 (79-97) fl MCH 27 L (28-32) pg MCHC 32 (30-34) % RDW 16.1 H (13.2-15.2) % Plt Count 288 (140-440) K/mm3 Lymph % (Auto) 38.9 H (13.4-35.0) % [place] % (Auto) 8.1 H (0.0-7.3) % Eos % (Auto) 2.8 (0.0-4.3) % Baso % (Auto) 1.2 (0.0-1.8) % Lymph # 2.8 (1.2-5.4) K/mm3 [place] # 0.6 (0.0-0.8) K/mm3 Eos # 0.2 (0.0-0.4) K/mm3 Baso # 0.1 (0.0-0.1) K/mm3 Seg Neutrophils % 49.0 (40.0-70.0) % Seg Neutrophils # 3.6 (1.8-7.7) K/mm3 Sodium 142 (137-145) mmol/L Potassium 3.7 (3.6-5.0) mmol/L Chloride 102.7 (98-107) mmol/L Carbon Dioxide 29 (22-30) mmol/L Anion Gap 14 mmol/L BUN 7 (7-17) mg/dL Creatinine 0.6 L (0.7-1.2) mg/dL Estimated GFR > 60 ml/min BUN/Creatinine Ratio 12 % Glucose 104 H (65-100) mg/dL Calcium 9.0 (8.4-10.2) mg/dL Phosphorus 2.70 (2.5-4.5) mg/dL Magnesium 1.90 (1.7-2.3) mg/dL Total Bilirubin 0.30 (0.1-1.2) mg/dL AST 29 (5-40) units/L ALT 30 (7-56) units/L Alkaline Phosphatase 70 (35-129) units/L Total Protein 6.5 (6.3-8.2) g/dL Albumin 3.9 (3.9-5) g/dL Albumin/Globulin Ratio 1.5 % - Radiology Data Radiology results: report reviewed - Medical Decision Making Patient given 2 continuous breathing treatments IV Solu-Medrol, IV magnesium, and subcutaneous epi given Patient was still using accessory muscles to breathe and not moving much air Patient was placed on BiPAP Decision made for admission which was discussed with the patient Critical Care Time: Yes Critical care time in (mins) excluding proc time.: 45 Critical care attestation.: If time is entered above; I have spent that time in minutes in the direct care of this critically ill patient, excluding procedure time. ED Disposition Clinical Impression: Status asthmaticus, Respiratory failure Disposition: DC-[id number] OP ADMIT IP TO THIS HOSP Is pt being admited?: Yes Does the pt Need Aspirin: No Condition: Fair
[2018-09-29] MEDS ORDERED: ATIVAN IV ONE (19:50)
[2018-09-29] MEDS ORDERED: SODIUM CHLORIDE FLUSH SYRINGE 10 ML IV PRN (21:37)
[2018-09-29] MEDS ORDERED: ZOFRAN IV PRN (21:37)
[2018-09-29] MEDS ORDERED: PERCOCET 5/325 PO PRN (21:37)
[2018-09-29] MEDS ORDERED: TYLENOL PO PRN (21:37)
--- NOTE | 2018-09-29 21:37 | History and Physical Report ---
History of Present Illness Date of examination: 09/29/18 Date of admission: 09/29/18 19:30 Medications and Allergies Allergies Allergy/AdvReac Type Severity Reaction Status Date / Time iodine Allergy Rash Verified 09/29/18 15:56 shellfish derived Allergy Rash Verified 09/29/18 15:56 Home Medications Medication Instructions Recorded Confirmed Last Taken Type Metoprolol Tartrate 25 mg PO DAILY 02/21/18 09/29/18 02/20/18 History Naproxen [Naprosyn] 500 mg PO BID PRN 02/22/18 09/29/18 Unknown History ALBUTEROL NEB's [Proventil 0.083% 5 mg IH TID PRN #20 neb 07/12/18 09/29/18 Unknown Rx NEBS] Ibuprofen [Motrin] 800 mg PO Q8HR PRN 09/29/18 09/29/18 Unknown History metFORMIN [Glucophage] 500 mg PO BID 09/29/18 09/29/18 Unknown History Exam - Constitutional Vitals: Temp Pulse Resp BP Pulse Ox 98.5 F 94 H 20 144/81 98 09/29/18 15:53 09/29/18 20:16 09/29/18 20:16 09/29/18 20:16 09/29/18 20:16 Results - Labs CBC & Chem 7: 09/29/18 16:13 09/29/18 16:19 Labs: Laboratory Last Values WBC 7.3 K/mm3 (4.5-11.0) 09/29/18 16:13 RBC 4.69 M/mm3 (3.65-5.03) 09/29/18 16:13 Hgb 12.6 gm/dl (10.1-14.3) 09/29/18 16:13 Hct 39.2 % (30.3-42.9) 09/29/18 16:13 MCV 84 fl (79-97) 09/29/18 16:13 MCH 27 pg (28-32) L 09/29/18 16:13 MCHC 32 % (30-34) 09/29/18 16:13 RDW 16.1 % (13.2-15.2) H 09/29/18 16:13 Plt Count 288 K/mm3 (140-440) 09/29/18 16:13 Lymph % (Auto) 38.9 % (13.4-35.0) H 09/29/18 16:13 [place] % (Auto) 8.1 % (0.0-7.3) H 09/29/18 16:13 Eos % (Auto) 2.8 % (0.0-4.3) 09/29/18 16:13 Baso % (Auto) 1.2 % (0.0-1.8) 09/29/18 16:13 Lymph # 2.8 K/mm3 (1.2-5.4) 09/29/18 16:13 [place] # 0.6 K/mm3 (0.0-0.8) 09/29/18 16:13 Eos # 0.2 K/mm3 (0.0-0.4) 09/29/18 16:13 Baso # 0.1 K/mm3 (0.0-0.1) 09/29/18 16:13 Seg Neutrophils % 49.0 % (40.0-70.0) 09/29/18 16:13 Seg Neutrophils # 3.6 K/mm3 (1.8-7.7) 09/29/18 16:13 Sodium 142 mmol/L (137-145) 09/29/18 16:19 Potassium 3.7 mmol/L (3.6-5.0) 09/29/18 16:19 Chloride 102.7 mmol/L (98-107) 09/29/18 16:19 Carbon Dioxide 29 mmol/L (22-30) 09/29/18 16:19 Anion Gap 14 mmol/L 09/29/18 16:19 BUN 7 mg/dL (7-17) 09/29/18 16:19 Creatinine 0.6 mg/dL (0.7-1.2) L 09/29/18 16:19 Estimated GFR > 60 ml/min 09/29/18 16:19 BUN/Creatinine Ratio 12 % 09/29/18 16:19 Glucose 104 mg/dL (65-100) H 09/29/18 16:19 Calcium 9.0 mg/dL (8.4-10.2) 09/29/18 16:19 Phosphorus 2.70 mg/dL (2.5-4.5) 09/29/18 16:19 Magnesium 1.90 mg/dL (1.7-2.3) 09/29/18 16:19 Total Bilirubin 0.30 mg/dL (0.1-1.2) 09/29/18 16:19 AST 29 units/L (5-40) 09/29/18 16:19 ALT 30 units/L (7-56) 09/29/18 16:19 Alkaline Phosphatase 70 units/L (35-129) 09/29/18 16:19 Total Protein 6.5 g/dL (6.3-8.2) 09/29/18 16:19 Albumin 3.9 g/dL (3.9-5) 09/29/18 16:19 Albumin/Globulin Ratio 1.5 % 09/29/18 16:19
[2018-09-29] MEDS ORDERED: ATIVAN ONE (21:46)
[2018-09-29] MEDS ORDERED: NACL 0.9% 1000 ML 1,000 ML IV SCH (22:00)
[2018-09-29] MEDS ORDERED: LEVAQUIN 750MG/150ML 750 MG/150 ML BAG IV ONE (22:09)
[2018-09-29] MEDS ORDERED: SOLU-Medrol ONE (22:09)
[2018-09-29] MEDS: LEVAQUIN 750MG/150ML 750 MG/150 ML BAG IV SCH (22:16)
[2018-09-29] MEDS: SODIUM CHLORIDE FLUSH SYRINGE 10 ML IV SCH (22:16)
[2018-09-29] MEDS: SOLU-Medrol IV SCH (22:16)
[2018-09-30] MEDS: DILAUDID IV PRN ×2 (03:10→18:13)
[2018-09-30] MEDS: SOLU-Medrol IV SCH ×2 (05:55→14:41)
[2018-09-30 05:57] LABS: Alanine Aminotransferase 32 units/L (7-56); Albumin 3.8 g/dL (3.9-5); BUN/Creatinine Ratio 12; Blood Urea Nitrogen 7 mg/dL (7-17); Calcium 9.1 mg/dL (8.4-10.2); Hemolysis Index 2
[2018-09-30] MEDS: PROVENTIL IH PRN (06:07)
--- NOTE | 2018-09-30 07:05 | Event Note ---
Date: 09/29/18 See H/p in reports Acute resp failure Asthma exacerbation Intubatedx1 in the past
[2018-09-30] MEDS ORDERED: IBUPROFEN PO PRN (07:10)
--- NOTE | 2018-09-30 08:35 | History and Physical Report ---
CHIEF COMPLAINT: Respiratory distress and wheezing. HISTORY OF PRESENT ILLNESS: A 42-year-old with history of hypertension, asthma, and COPD, who comes in for increasing shortness of breath and wheezing. Not responded to nebulizer treatments. It has been going on for the last 48 hours. No fever or chills. Not responding to nebulizer treatments. The patient had intubations in the past, the patient says x 1 only. Very poor historian. No fever or chills. No recent travel. PAST MEDICAL HISTORY: Significant for type 2 diabetes, asthma, and pedal edema. Hypertension. PAST SURGICAL HISTORY: x 3 and arch replacement. SOCIAL HISTORY: Does not smoke. Alcohol occasionally. FAMILY HISTORY: Hypertension. CURRENT MEDICATIONS: On the chart, including metoprolol 25 mg twice a day, albuterol nebulizer treatments 3 times a day, Lasix 20 mg once a day, and prednisone 10 mg once a day. REVIEW OF SYSTEMS: Significant for increasing shortness of breath and wheezing, not responding to nebulizer treatments. No fever. Otherwise, review of systems negative. Obesity present. PHYSICAL EXAMINATION: GENERAL: Middle-aged female, cooperative during examination, in respiratory distress. VITAL SIGNS: Blood pressure is 125/63. Pulse is 90. Respiratory rate is 36. Sats are 94, they were as low as ____, but the patient was on oxygen all the time. Respiratory rate was high 38. HEENT: Unremarkable. NECK: Accessory muscles of respiration are prominent. LUNGS: Bilateral inspiratory rhonchi present and expiratory rhonchi present. Diminished air entry. CARDIOVASCULAR SYSTEM: S1, S2 heard. No gallop, no murmur, no rub. Apical impulse in left fifth intercostal space in midclavicular line. ABDOMEN: Soft and benign. No hepatosplenomegaly. No guarding, no rigidity. Hernial orifices are normal. EXTREMITIES: Good pedal pulses. No pedal edema. CENTRAL NERVOUS SYSTEM: Alert and oriented x 4, nonfocal exam. LABORATORY DATA: Significant for white count of 7300, H and H of 12.6 and 36.2. Electrolytes are normal. Glucose is 104. Hemoglobin A1c is 6.2. DIAGNOSTIC DATA: Chest x-ray shows no infiltrates. ASSESSMENT AND PLAN: 1. Acute respiratory failure. The patient on BiPAP at this time. The patient may need intubation. We will try to prevent intubation. DuoNebs aggressively and albuterol and budesonide inhalation treatments. IV Solu-Medrol initiated. IV Levaquin initiated. 2. Asthma exacerbation. IV Solu-Medrol, IV Levaquin and frequent nebulizer treatments. 3. Hypertension. Discontinue metoprolol. Because of the bronchospasm, we will change it to losartan and stop the metprolol. 4. Type 2 diabetes. Continue metformin and coverage. 5. Deep venous thrombosis prophylaxis, Lovenox 40 mg subcutaneous daily. Critical care time 30 minutes. In summary, the patient has acute respiratory failure, asthma exacerbation, hypertension, and type 2 diabetes. JOB# [id number] SERA/JULISSA HERNDON
[2018-09-30] MEDS: PULMICORT IH SCH ×2 (09:00→20:00)
--- NOTE | 2018-09-30 09:37 | Progress Note ---
Assessment and Plan Patient presents to emergency department with a complaint of shortness of breath. The patient has a history of asthma with multiple intubations in the past. Patient has had difficulty breathing for the last couple of days without relief from her home nebulizer. Patient denies chest pain, headache, or abdominal pain. -Acute respiratory failure Continue with supplemental oxygen BiPAP and Pulmicort IV Levaquin - Asthma exacerbation Bronchodilators, IV Solu-Medrol, IV Levaquin - Diabetes mellitus type 2 Sliding-scale insulin Consistent carbohydrate diet - Hypertension Continue losartan Hold beta blockers because of bronchospasm - DVT prophylaxis with Lovenox and GI Pepcid Subjective Date of service: 09/30/18 Principal diagnosis: acute respiratory failure, asthma exacerbation Interval history: Still having Shortness of breath denies any fever. No oxygen via NC Objective - Exam Narrative Exam: Constitutional: Well-nourished well-developed. In no distress Head: Normocephalic atraumatic Eyes: Pupils are equal round and reactive to light Nose: No enlarged turbinates, no septal deviation. Mouth: Moist mucous membranes. Neck: Supple no thyromegaly. No bruit. No JVD Heart: Regular rate and rhythm, S1-S2 normal. No rubs murmurs or gallop Lungs: Decreased breath sounds . no rales or rhonchi Abdomen: Soft, nontender. Bowel sound are present. Extremities: No edema, no cyanosis, no clubbing. Neuro: Alert oriented Oriented x3. No focal sensory or motor deficit. Skin: No rashes or hyperpigmented spots Musculoskeletal system: No joint pain or swelling Hematological: No petechia or subcutanous hemorrhages. Immunological: No multiple septic spots on the skin Lymphatic: No generalized lymphadenopathy Psychiatry: Euthymic. Calm. - Constitutional Vitals: Vital Signs - 12hr 09/29/18 09/29/18 09/29/18 21:30 21:46 22:00 Temperature Pulse Rate 111 H 90 87 Pulse Rate [ Apical] Pulse Rate [ Bilateral Throughout] Pulse Rate [ Left Radial] Pulse Rate [ Right Radial] Respiratory 24 36 H 19 Rate Respiratory Rate [Bilateral Throughout] Blood Pressure 141/74 125/63 143/76 O2 Sat by Pulse 94 98 97 Oximetry 09/29/18 09/29/18 09/30/18 23:31 23:35 02:00 Temperature Pulse Rate 95 H 99 H Pulse Rate [ 99 H 99 H Apical] Pulse Rate [ Bilateral Throughout] Pulse Rate [ 99 H 99 H Left Radial] Pulse Rate [ 99 H 99 H Right Radial] Respiratory 18 38 H 18 Rate Respiratory Rate [Bilateral Throughout] Blood Pressure O2 Sat by Pulse 98 98 98 Oximetry 09/30/18 09/30/18 09/30/18 03:10 03:14 03:40 Temperature Pulse Rate 89 Pulse Rate [ Apical] Pulse Rate [ Bilateral Throughout] Pulse Rate [ Left Radial] Pulse Rate [ Right Radial] Respiratory 15 14 14 Rate Respiratory Rate [Bilateral Throughout] Blood Pressure O2 Sat by Pulse 97 Oximetry 09/30/18 09/30/18 09/30/18 04:25 06:09 06:20 Temperature Pulse Rate Pulse Rate [ 96 H Apical] Pulse Rate [ 73 78 Bilateral Throughout] Pulse Rate [ 96 H Left Radial] Pulse Rate [ 96 H Right Radial] Respiratory 32 H Rate Respiratory 17 18 Rate [Bilateral Throughout] Blood Pressure O2 Sat by Pulse 98 Oximetry 09/30/18 08:00 Temperature 97.5 F L Pulse Rate Pulse Rate [ Apical] Pulse Rate [ Bilateral Throughout] Pulse Rate [ Left Radial] Pulse Rate [ Right Radial] Respiratory Rate Respiratory Rate [Bilateral Throughout] Blood Pressure O2 Sat by Pulse Oximetry - Labs CBC & Chem 7: 09/29/18 16:13 09/30/18 04:23 Labs: Abnormal lab results 09/29/18 09/29/18 09/29/18 Range/Units 16:13 16:13 16:19 MCH 27 L (28-32) pg RDW 16.1 H (13.2-15.2) % Lymph % (Auto) 38.9 H (13.4-35.0) % [place] % (Auto) 8.1 H (0.0-7.3) % Creatinine 0.6 L (0.7-1.2) mg/dL Glucose 104 H (65-100) mg/dL Hemoglobin A1c 6.2 H (4-6) % Albumin (3.9-5) g/dL 09/30/18 Range/Units 04:23 MCH (28-32) pg RDW (13.2-15.2) % Lymph % (Auto) (13.4-35.0) % [place] % (Auto) (0.0-7.3) % Creatinine 0.6 L (0.7-1.2) mg/dL Glucose 177 H (65-100) mg/dL Hemoglobin A1c (4-6) % Albumin 3.8 L (3.9-5) g/dL
[2018-09-30] MEDS: GLUCOPHAGE PO SCH ×2 (09:38→18:16)
[2018-09-30] MEDS ORDERED: COZAAR PO SCH (10:00)
--- NOTE | 2018-09-30 10:24 | Consultation ---
History of Present Illness Consult date: 09/30/18 Requesting physician: NIXON RAY Reason for consult: COPD History of present illness: Patient presents to emergency department with a complaint of shortness of breath. The patient has a history of asthma with multiple intubations in the past. Patient has had difficulty breathing for the last couple of days without relief from her home nebulizer. Patient denies chest pain, headache, or abdominal pain She was admitted to the ICU and I have been consulted for critical care management. Patient was seen and examined Vitals, labs, medications, and chart were reviewed. She has some chest tightness, no fevers or chills. She endorses some unproductive cough. No fevers or chills. She complains of insomnia and wants something to help her sleep tonight. Lying peacefully in bed on bronchodilator therapy at this time She sees Dr. Kern as an outpatient ROS: Stated complaint: CHEST PAIN/ASTHMA Other details as noted in HPI Constitutional: denies: chills, fever Eyes: denies: eye pain, eye discharge, vision change ENT: denies: ear pain, throat pain Respiratory: shortness of breath, wheezing. denies: cough Cardiovascular: denies: chest pain, palpitations Endocrine: no symptoms reported Gastrointestinal: denies: abdominal pain, nausea, diarrhea Genitourinary: denies: urgency, dysuria, discharge Musculoskeletal: denies: back pain, joint swelling, arthralgia Skin: denies: rash, lesions Neurological: denies: headache, weakness, paresthesias Psychiatric: denies: anxiety, depression Hematological/Lymphatic: denies: easy bleeding, easy bruising - Past Medical History Hx Hypertension: Yes Hx Congestive Heart Failure: Yes Hx Diabetes: No Hx Arthritis: Yes Hx Asthma: Yes Hx COPD: Yes Hx HIV: No Additional medical history: Sleep Apnea,.Morbid Obesity - Surgical History Additional Surgical History: x 3, orthopedic (arch replacement) - Social History Smoking Status: Never Smoker Substance Use Type: Alcohol Medications and Allergies Allergies Allergy/AdvReac Type Severity Reaction Status Date / Time iodine Allergy Rash Verified 09/29/18 15:56 shellfish derived Allergy Rash Verified 09/29/18 15:56 Home Medications Medication Instructions Recorded Confirmed Last Taken Type Metoprolol Tartrate 25 mg PO DAILY 02/21/18 09/29/18 02/20/18 History Naproxen [Naprosyn] 500 mg PO BID PRN 02/22/18 09/29/18 Unknown History ALBUTEROL NEB's [Proventil 0.083% 5 mg IH TID PRN #20 neb 07/12/18 09/29/18 Unknown Rx NEBS] Ibuprofen [Motrin] 800 mg PO Q8HR PRN 09/29/18 09/29/18 Unknown History metFORMIN [Glucophage] 500 mg PO BID 09/29/18 09/29/18 Unknown History hydroCHLOROthiazide [HCTZ] 25 mg PO DAILY 09/30/18 09/30/18 Unknown History Active Meds: Active Medications Acetaminophen (Tylenol) 650 mg PO Q4H PRN PRN Reason: Pain MILD(1-3)/Fever >100.5/CESAR Albuterol (Proventil) 2.5 mg IH Q4HRT PRN PRN Reason: Shortness Of Breath Last Admin: 09/30/18 06:07 Dose: 2.5 mg Documented by: Albuterol/Ipratropium (Duoneb *Not For Prn Use*) 1 ampul IH QIDRT DARIUSZ Budesonide (Pulmicort) 0.5 mg IH Q12HRT DARIUSZ Enoxaparin Sodium (Lovenox) 40 mg SUB-Q QDAY@2200 DARIUSZ Hydromorphone HCl (Dilaudid) 0.5 mg IV Q3H PRN PRN Reason: Pain , Severe (7-10) Last Admin: 09/30/18 03:10 Dose: 0.5 mg Documented by: Sodium Chloride (Nacl 0.9% 1000 Ml) 1,000 mls @ 42 mls/hr IV DIRECT DARIUSZ Last Admin: 09/30/18 05:22 Dose: 42 mls/hr Documented by: Levofloxacin/Dextrose (Levaquin 750mg/150ml) 750 mg in 150 mls @ 100 mls/hr IV Q24H DARIUSZ; Protocol Last Admin: 09/29/18 22:16 Dose: 100 mls/hr Documented by: Ibuprofen (Motrin) 800 mg PO Q8HR PRN PRN Reason: Pain , Severe (7-10) Insulin Human Lispro (Humalog) 0 unit SUB-Q ACHS DARIUSZ; Protocol Losartan Potassium (Cozaar) 50 mg PO QDAY DARIUSZ Metformin HCl (Glucophage) 500 mg PO BIDDIAB [facility] Last Admin: 09/30/18 09:38 Dose: Not Given Documented by: Methylprednisolone Sodium Succinate (Solu-Medrol) 125 mg IV Q8HR [facility] Last Admin: 09/30/18 05:55 Dose: 125 mg Documented by: Ondansetron HCl (Zofran) 4 mg IV Q8H PRN PRN Reason: Nausea And Vomiting Oxycodone/Acetaminophen (Percocet 5/325) 1 tab PO Q6H PRN PRN Reason: Pain, Moderate (4-6) Sodium Chloride (Sodium Chloride Flush Syringe 10 Ml) 10 ml IV BID [facility] Last Admin: 09/29/18 22:16 Dose: 10 ml Documented by: Sodium Chloride (Sodium Chloride Flush Syringe 10 Ml) 10 ml IV PRN PRN PRN Reason: LINE FLUSH Physical Examination Vital signs: Vital Signs Pulse Resp 95 H 26 H 09/29/18 15:50 09/29/18 15:50 General Limitations: No Limitations General appearance: alert, in no apparent distress, morbidly obese, speaking full sentences - Head Head exam: Present: atraumatic, normocephalic - Eye Eye exam: Present: normal appearance, PERRL, EOMI - ENT ENT exam: Present: mucous membranes moist - Neck Neck exam: Present: normal inspection - Respiratory Respiratory exam: Present: normal lung sounds bilaterally; diminished AE, no wheezing - Cardiovascular Cardiovascular Exam: Present: normal rhythm, tachycardia. Absent: systolic murmur, diastolic murmur, rubs, gallop - GI/Abdominal GI/Abdominal exam: Present: soft, normal bowel sounds. Absent: distended, tenderness - Extremities Exam Extremities exam: Present: normal inspection - Back Exam Back exam: Present: normal inspection - Neurological Exam Neurological exam: Present: alert, oriented X3, CN II-XII intact. Absent: motor sensory deficit - Psychiatric Psychiatric exam: Present: normal affect, normal mood - Skin Skin exam: Present: warm, dry, intact, normal color. Absent: rash Results - Laboratory Findings CBC and BMP: 09/29/18 16:13 09/30/18 04:23 Abnormal lab findings: Abnormal Labs 09/29/18 09/29/18 09/29/18 16:13 16:13 16: MCH 27 L RDW 16.1 H Lymph % (Auto) 38.9 H [place] % (Auto) 8.1 H Creatinine 0.6 L Glucose 104 H Hemoglobin A1c 6.2 H Albumin 09/30/18 04:23 MCH RDW Lymph % (Auto) [place] % (Auto) Creatinine 0.6 L Glucose 177 H Hemoglobin A1c Albumin 3.8 L - Diagnostic Findings Chest x-ray: image reviewed (No acute pulmonary infiltrates) Assessment and Plan AE-Asthma, history of intubation in the past Morbid obesity Anxiety disorder -Continue supplemental oxygen to keep O2 sats>90% -ABG -Bronchodilators -Steroids, accuchecks with glycemic conrol -Add montelukast therapy -Blood pressure management -Keep blood glucose at 140-180 mg/dL -VTE prophylaxis -BIPAP prn for work of breathing -Analgesia -weight loss and life style modicfications -Chronic home medications Discussed with her care plan. Can transfer to telemetry, does not require ICU level care.
[2018-09-30] MEDS: DUONEB *Not for PRN Use IH SCH ×5 (11:41→19:59)
[2018-09-30] MEDS: SODIUM CHLORIDE FLUSH SYRINGE 10 ML IV SCH (11:45)
[2018-09-30] MEDS: HumaLOG SUB-Q SCH ×2 (11:48→16:57)
[2018-09-30] MEDS ORDERED: APRESOLINE PO PRN (16:43)
[2018-09-30] MEDS ORDERED: HCTZ PO SCH (17:00)
--- NOTE | 2018-09-30 17:02 | Event Note ---
Date: 09/30/18 I was called to see pt who insisted that the Losartan 50 mg po which she was given was responsible for the increase of her blood pressure instead of HCTZ which is her home medication. She look agitated and upset about it. Her SBP at this time was 191. I advised her to the contrary and to calm down as her agitation over her persived side effect of Losartan will futher increase her blood pressure. I further explained other possible causes of her elevated BP and advised her that i will commence her on Hydralazin for her elevated BP. She said she no longer want any medications which he body does not tolerates which we collude with pharmaceutical companies to be pumping into peoples body to hurt them like, the Losartan. She requested gm i give her a print ouit of the profile of hyrallazine before she can take it.
[2018-09-30] MEDS: APRESOLINE IV SCH ×2 (18:15→22:41)
[2018-09-30] MEDS ORDERED: AMBIEN PO ONE (22:00)
[2018-09-30] MEDS ORDERED: LOVENOX SUB-Q SCH (22:00)
[2018-09-30] MEDS: LEVAQUIN 750MG/150ML 750 MG/150 ML BAG IV SCH (22:49)
[2018-10-01] MEDS: PROVENTIL IH PRN (00:04)
[2018-10-01 00:35] VITALS: BP 127/63
[2018-10-01] MEDS: DILAUDID IV PRN (00:51)
[2018-10-01] MEDS: SODIUM CHLORIDE FLUSH SYRINGE 10 ML IV SCH (00:52)
[2018-10-01] MEDS: HumaLOG SUB-Q SCH (01:08)
[2018-10-01] MEDS: SOLU-Medrol IV SCH (01:09)
--- NOTE | 2018-10-01 08:44 | Event Note ---
Date: 09/30/18 Called by MANUAL TRAINING TEACHER stating that the patient is refusing all her medications and BP measurements. She requested that I speak with the patietn. I did over the phone. The patient stated that she did not trust the staff, she was given Cozaar which elevated her blood pressure. I spoke to her and explained the need to treat her BP as we did not want to precipitate a stroke. She is on hydrallazine, so we can give her one dose and also a dose of Ambien to help her sleep. I also spoke with her significant other who is ging to spend the night with her. I gave an order for one dose of Ambien. Continue all current therapies
--- NOTE | 2018-11-11 10:46 | Discharge Summary ---
ADMITTING DIAGNOSES: 1. Acute respiratory failure. 2. Asthma exacerbation. 3. Diabetes mellitus. 4. Hypertension. HOSPITAL COURSE: The patient is a 42-year-old morbidly obese lady, who has a history of asthma, came in with severe shortness of breath and wheezing. She was hypoxic. The patient was placed on BiPAP. Admitted to the ICU. Placed on bronchodilators. IV Solu-Medrol. She is a diabetic. She also was placed on sliding scale insulin. Became very agitated because she felt she was not getting better. However, O2 sats were in the mid 90s. She had been placed on oxygen via nasal cannula as she no longer needed BiPAP, having been improved. Blood pressures slightly have been elevated. Was placed on Cozaar as well as hydralazine. The patient stated that Cozaar was responsible for increase in her blood pressure and wanted to be on hydrochlorothiazide, which she was taking at home. This was explained to her that hydrochlorothiazide alone would not be enough to stabilize her blood pressure that was in the 191. The patient stated that the staff and the doctors were colluding to give pharmaceutical medications that were poisoning most people and that she was not willing to take any of this medication. She was also advised by the special tester on the same issue to take the prescribed medication to avoid any stroke. The patient continued to decline her oral antihypertensive medications. She subsequently signed against medical advice and left the hospital. Diagnoses at the time of signing against medical advice include: 1. Acute exacerbation of asthma in a patient who had a history of intubation in [id number] past. 2. Acute respiratory failure with hypoxia. 3. Diabetes mellitus. 4. Morbid obesity. 5. Hypertension. JOB# [id number] OO/NTS
== END 2018-10-01 03:15 | disposition left against medical advice (07) | DRG 189 ==
LOC: ED 15:40 → IMCU 19:30 → CC1 22:17
PROVIDERS: ADMIT Internal Medicine; ATTEND Family Medicine
PROC: 5A09357 Assistance with Respiratory Ventilation, Less than 24 Consecutive Hours, Continuous Positive Airway Pressure (ICD-10-PCS; principal; 2018-09-29)
DX: J96.00 Acute respiratory failure, unspecified whether with hypoxia or hypercapnia (principal); I11.0 Hypertensive heart disease with heart failure; I50.9 Heart failure, unspecified; J45.902 Unspecified asthma with status asthmaticus; M19.90 Unspecified osteoarthritis, unspecified site; J44.9 Chronic obstructive pulmonary disease, unspecified; E66.01 Morbid (severe) obesity due to excess calories; Z53.21 Procedure and treatment not carried out due to patient leaving prior to being seen by health care provider; F41.9 Anxiety disorder, unspecified; E11.9 Type 2 diabetes mellitus without complications; Z91.041 Radiographic dye allergy status; Z68.42 Body mass index [BMI] 45.0-49.9, adult; Z91.013 Allergy to seafood; Z82.49 Family history of ischemic heart disease and other diseases of the circulatory system
CPT/HCPCS: 36415; 71045; 80053; 82962; 83036; 83735; 84100; 85025; 93005; 93010; 94640; 94660; 96365; 96372; 96375; G0378; J0171; J0360; J1170; J1650; J1956; J2060; J2930; J3475; J7030

== ENCOUNTER 2019-02-15 09:09 | Inpatient (IN) | payer MEDICAID ==
[2019-02-15] MEDS ORDERED: SOLU-Medrol IV ONE (09:18)
[2019-02-15] MEDS ORDERED: MAGNESIUM SULFATE 2GM/50ML 2 GM/50 ML BAG IV ONE (09:18)
[2019-02-15] MEDS ORDERED: ATROVENT IH ONE (09:20)
[2019-02-15] MEDS ORDERED: PROVENTIL IH ONE ×2 (09:20→14:28)
--- NOTE | 2019-02-15 09:25 | Emergency Department Report ---
HPI - General Chief Complaint: Dyspnea/Respdistress Time Seen by Provider: 02/15/19 09:17 - HPI HPI: Room 18 The patient is a 43-year-old female presenting with a chief complaint shortness of breath. Patient states her symptoms began last night with shortness of breath consistent with her COPD. The patient states she attempted to use her nebulizer twice this morning and it only helped transiently. Patient denies pain of any type at this time. Patient states her symptoms feel consistent with an exacerbation of her COPD Location: [See above] Duration: [See above] Quality: [See above] Severity: [See above] Modifying factors: [see above] Context: [see above] Mode of transportation: [not driving] ED Past Medical Hx - Past Medical History Previous Medical History?: Yes Hx Hypertension: Yes Hx Congestive Heart Failure: Yes Hx Arthritis: Yes Hx Asthma: Yes Additional medical history: Sleep Apnea,.Morbid Obesity - Surgical History Past Surgical History?: Yes Additional Surgical History: x 3, orthopedic (arch replacement) - Family History Family history: no significant - Social History Smoking Status: Never Smoker Substance Use Type: None (denies illicit drug use), Alcohol (occasional) - Medications Home Medications: Home Medications Medication Instructions Recorded Confirmed Last Taken Type Metoprolol Tartrate 25 mg PO DAILY 02/21/18 09/29/18 02/20/18 History Naproxen [Naprosyn] 500 mg PO BID PRN 02/22/18 09/29/18 Unknown History ALBUTEROL NEB's [Proventil 0.083% 5 mg IH TID PRN #20 neb 07/12/18 09/29/18 Unknown Rx NEBS] Ibuprofen [Motrin] 800 mg PO Q8HR PRN 09/29/18 09/29/18 Unknown History metFORMIN [Glucophage] 500 mg PO BID 09/29/18 09/29/18 Unknown History hydroCHLOROthiazide [HCTZ] 25 mg PO DAILY 09/30/18 09/30/18 Unknown History ED Review of Systems ROS: Stated complaint: ASTHMA/DIANNA Other details as noted in HPI Constitutional: no symptoms reported Eyes: denies: eye pain ENT: denies: throat pain Respiratory: shortness of breath Cardiovascular: denies: chest pain Endocrine: no symptoms reported Gastrointestinal: denies: abdominal pain Genitourinary: denies: dysuria Musculoskeletal: denies: back pain Neurological: denies: headache Physical Exam - Physical Exam Physical Exam: GENERAL: The patient is well-developed well-nourished female lying on stretcher exhibiting increased work of breathing. [] HEENT: Normocephalic. Atraumatic. Extraocular motions are intact. Patient has moist mucous membranes. NECK: Supple. Trachea midline CHEST/LUNGS: Diffuse wheezing. There is increased work of breathing HEART/CARDIOVASCULAR: Regular. There is tachycardia. There is no gallop rub or murmur. ABDOMEN: Abdomen is soft, nontender. Patient has normal bowel sounds. There is no abdominal distention. SKIN: There is no rash. There is no edema. There is no diaphoresis. NEURO: The patient is awake, alert, and oriented. The patient is cooperative. The patient has normal speech MUSCULOSKELETAL: There is no evidence of acute injury. ED Course - Reevaluation(s) Reevaluation #1: 02/15/19 11:40 Patient appears to be resting comfortably on BiPAP. When awakened she states she is still having difficulty breathing. ED Medical Decision Making - Lab Data Result diagrams: 02/15/19 09:23 02/15/19 09:23 Laboratory Tests 02/15/19 02/15/19 02/15/19 09:23 09:23 09:23 WBC 8.3 RBC 4.53 Hgb 12.0 Hct 36.9 MCV 82 MCH 27 L MCHC 33 RDW 15.4 H Plt Count 318 Lymph % (Auto) 19.5 [place] % (Auto) 5.5 Eos % (Auto) 3.7 Baso % (Auto) 0.6 Lymph # 1.6 [place] # 0.5 Eos # 0.3 Baso # 0.1 Seg Neutrophils % 70.7 H Seg Neutrophils # 5.9 PT 12.8 INR 0.99 APTT 32.4 Sodium 144 Potassium 3.5 L Chloride 104.0 Carbon Dioxide 27 Anion Gap 17 BUN 11 Creatinine 0.5 L Estimated GFR > 60 BUN/Creatinine Ratio 22 Glucose 142 H Calcium 9.0 Total Creatine Kinase 52 CK-MB (CK-2) 1.4 CK-MB (CK-2) Rel Index 2.6 Troponin T < 0.010 NT-Pro-B Natriuret Pep 176.8 HCG, Qual 02/15/19 09:23 WBC RBC Hgb Hct MCV MCH MCHC RDW Plt Count Lymph % (Auto) [place] % (Auto) Eos % (Auto) Baso % (Auto) Lymph # [place] # Eos # Baso # Seg Neutrophils % Seg Neutrophils # PT INR APTT Sodium Potassium Chloride Carbon Dioxide Anion Gap BUN Creatinine Estimated GFR BUN/Creatinine Ratio Glucose Calcium Total Creatine Kinase CK-MB (CK-2) CK-MB (CK-2) Rel Index Troponin T NT-Pro-B Natriuret Pep HCG, Qual Negative - Radiology Data Radiology results: report reviewed (chest x-ray), image reviewed (chest x-ray) interpreted by me: Chest x-ray-no focal infiltrates, no pneumothorax [facility] [address] [place] [address] XRay Report Signed Patient: CLIFFORD MOSHER MR#: [id number] : 1975 Acct:[id number] Age/Sex: 43 / F ADM Date: 02/15/19 Loc: ED Attending Dr: Ordering Physician: ADDI BLACKWOOD MD Date of Service: 02/15/19 Procedure(s): XR chest 1V ap Accession Number(s): [id number] cc: ADDI BLACKWOOD MD Fluoro Time In Minutes: CHEST 1 VIEW 10:46 AM INDICATION / CLINICAL INFORMATION: Shortness of breath. COMPARISON: 09/29/2018. FINDINGS: SUPPORT DEVICES: None. HEART / MEDIASTINUM: The heart size is probably normal for technique. Pulmonary vasculature is normal. The aorta is normal in caliber. LUNGS / PLEURA: No significant pulmonary or pleural abnormality. No pneumothorax. ADDITIONAL FINDINGS: No significant additional findings. IMPRESSION: No acute abnormality or significant change. Signer Name: Parker Gillespie MD Signed: 02/15/2019 11:11 AM Workstation Name: [id number] Transcribed By: RT Dictated By: Parker Gillespie MD Electronically Authenticated By: Parker Gillespie MD Signed Date/Time: 02/15/19 1111 DD/ 1110 TD/TT: - Differential Diagnosis COPD exacerbation, pneumonia, bronchitis Critical care attestation.: If time is entered above; I have spent that time in minutes in the direct care of this critically ill patient, excluding procedure time. ED Disposition Clinical Impression: Shortness of breath, COPD exacerbation Disposition: OP ADMIT IP TO THIS HOSP Is pt being admited?: Yes Does the pt Need Aspirin: No Condition: Fair Instructions: Chronic Obstructive Pulmonary Disease (ED) Time of Disposition: 11:40 (hospitalist paged (Dr Boland))
[2019-02-15 09:43] LABS: INR 0.99 (0.87-1.13)
[2019-02-15 09:44] LABS: Basophils # (Auto) 0.1 K/mm3 (0.0-0.1); Basophils % (Auto) 0.6 % (0.0-1.8); Eosinophils # (Auto) 0.3 K/mm3 (0.0-0.4); Eosinophils % (Auto) 3.7 % (0.0-4.3); Hematocrit 36.9 % (30.3-42.9); Lymphocytes # (Auto) 1.6 K/mm3 (1.2-5.4); Lymphocytes % (Auto) 19.5 % (13.4-35.0); Mean Corpuscular HGB Conc 33 % (30-34); Mean Corpuscular Volume 82 fl (79-97); Monocytes # (Auto) 0.5 K/mm3 (0.0-0.8); Monocytes % (Auto) 5.5 % (0.0-7.3); Platelet Count 318 K/mm3 (140-440); Red Blood Count 4.53 M/mm3 (3.65-5.03); Red Cell Distribution Width 15.4 % (13.2-15.2)
[2019-02-15 09:45] LABS: Partial Thromboplastin Time 32.4 Sec. (24.2-36.6)
[2019-02-15 09:58] LABS: BUN/Creatinine Ratio 22; Blood Urea Nitrogen 11 mg/dL (7-17); Creatine Kinase MB 1.4 ng/mL (0.0-4.0); Hemolysis Index 7
--- NOTE | 2019-02-15 11:16 | XRay Report ---
CHEST 1 VIEW 10:46 AM INDICATION / CLINICAL INFORMATION: Shortness of breath. COMPARISON: 09/29/2018. FINDINGS: SUPPORT DEVICES: None. HEART / MEDIASTINUM: The heart size is probably normal for technique. Pulmonary vasculature is normal . The aorta is normal in caliber. LUNGS / PLEURA: No significant pulmonary or pleural abnormality. No pneumothorax. ADDITIONAL FINDINGS: No significant additional findings. IMPRESSION: No acute abnormality or significant change. Signer Name: Parker Gillespie MD Signed: 02/15/2019 11:11 AM Workstation Name: [id number]
[2019-02-15] MEDS ORDERED: IBUPROFEN PO PRN (17:25)
[2019-02-15] MEDS ORDERED: PROVENTIL IH PRN (17:25)
[2019-02-15] MEDS ORDERED: ZOFRAN IV PRN (17:29)
[2019-02-15] MEDS ORDERED: PERCOCET 5/325 PO PRN (17:29)
[2019-02-15] MEDS ORDERED: SODIUM CHLORIDE FLUSH SYRINGE 10 ML IV PRN (17:29)
[2019-02-15] MEDS ORDERED: DILAUDID IV PRN (17:29)
[2019-02-15] MEDS: ASPIRIN PO SCH (18:04)
[2019-02-15] MEDS: LEVAQUIN 750MG/150ML 750 MG/150 ML BAG IV SCH (18:04)
[2019-02-15] MEDS: TOPROL XL PO SCH (18:04)
[2019-02-15] MEDS: ATIVAN IV PRN (18:04)
[2019-02-15] MEDS: SOLU-Medrol IV SCH ×2 (18:04→22:00)
[2019-02-15] MEDS: HCTZ PO SCH (18:08)
[2019-02-15] MEDS: DUONEB *Not for PRN Use IH SCH (19:46)
--- NOTE | 2019-02-15 20:50 | Event Note ---
Date: 02/15/19 See history and physical in the reports Acute respiratory failure COPD exacerbation Morbid obesity
[2019-02-15] MEDS: SODIUM CHLORIDE FLUSH SYRINGE 10 ML IV SCH (21:42)
[2019-02-15] MEDS: GLUCOPHAGE PO SCH (21:42)
[2019-02-15] MEDS: PEPCID IV SCH (21:42)
--- NOTE | 2019-02-15 21:57 | History and Physical Report ---
CHIEF COMPLAINT: Increasing respiratory distress for the last 2 days. HISTORY OF PRESENT ILLNESS: A 43 year old with history of COPD and asthma, congestive heart failure and sleep apnea, comes in for increasing shortness of breath for the last 2-3 days. The patient has been wheezing severely. The patient has used nebulizer treatments at home, but with no improvement. No fever or chills. Cough productive of mucoid sputum. No exacerbating or relieving factors. No recent travel. PAST MEDICAL HISTORY: Significant for hypertension, congestive heart failure, arthritis, asthma, sleep apnea, and morbid obesity. PAST SURGICAL HISTORY: x 3. Arch replacement. FAMILY HISTORY: No significant family history. SOCIAL HISTORY: Does not smoke. No illicit drug use. Occasional alcohol use. CURRENT MEDICATIONS: Metoprolol 25 mg once a day, naproxen 500 mg twice a day, albuterol inhaler 1 puff q.i.d. p.r.n., ibuprofen, metformin 500 b.i.d., hydrochlorothiazide 25 mg once a day. REVIEW OF SYSTEMS: Significant for increasing shortness of breath and wheezing. No chest pain. No fever or chills. Otherwise, 14-point review of systems is negative. PHYSICAL EXAMINATION: GENERAL: Middle-aged female, obese, in respiratory distress. VITAL SIGNS: Temperature is 98.4, pulse is 92, respiratory rate is 18 to 28 to 47. Initial sats were around low upper 80s, now 98 with oxygen. Blood pressure 148/63. Repeat blood pressure is 134/48. HEENT: Unremarkable. Pupils equal and reactive. NECK: Supple, no lymphadenopathy, no thyromegaly. Accessory muscles of respiration are prominent. CHEST: Bilateral inspiratory and expiratory rhonchi present. Diminished air entry. CARDIOVASCULAR: S1, S2 heard. No gallop, no murmur, no rub. Apical impulse in left fifth intercostal space and midclavicular line. ABDOMEN: Soft and benign. No hepatosplenomegaly. No guarding, no rigidity. Hernial orifices are normal. EXTREMITIES: Good pedal pulses. No pedal edema. CENTRAL NERVOUS SYSTEM: Alert and oriented x 4, nonfocal exam. LABORATORY DATA: Significant for white count of 8300, hemoglobin of 12, hematocrit of 36. Platelet count of 318,000. Blood gas was significant for pCO2 of 47.8, pO2 of 202, pH of 7.378, bicarbonate of 28, CO2 of 30, O2 sats 100%. Sodium was 144, potassium was 3.5, chloride was 104, bicarb was 27, BUN and creatinine were 11 and 0.5, glucose was 142. Calcium was 9.0. Total CK was 52, CK-MB is 1.4. ProBNP was 176.8. Chest x-ray shows no acute abnormality or significant change. ASSESSMENT AND PLAN: 1. Acute respiratory failure. The patient is very tachypneic and initially hypoxic without the room oxygen. The patient is on IV Solu-Medrol, IV antibiotics and DuoNebs around the clock and albuterol p.r.n. q.3 hours. 2. Chronic obstructive pulmonary disease exacerbation. The patient to be continued on IV Solu-Medrol, IV antibiotics and DuoNebs q.i.d. and albuterol p.r.n. every 3 hours. Also, BiPAP as necessary. Intubation if necessary. 3. Hypertension. Continue hydrochlorothiazide, metoprolol 25 mg once a day, metoprolol causes bronchospasm. Need to talk to PCP about the metoprolol. 4. Arthritis. Continue ibuprofen 800 t.i.d. p.r.n. 5. Type 2 diabetes/metabolic syndrome. Continue metformin and Accu-Cheks before meals and bedtime and coverage. 6. Deep venous thrombosis prophylaxis, Lovenox 40 mg subcutaneous daily. JOB# [id number] SERA/JULISSA HERNDON
[2019-02-15] MEDS: HumaLOG SUB-Q SCH (21:59)
[2019-02-16] MEDS ORDERED: AMBIEN PO PRN (00:35)
[2019-02-16] MEDS ORDERED: APRESOLINE IV PRN (00:36)
[2019-02-16] MEDS: PROVENTIL IH PRN ×2 (01:28→11:25)
[2019-02-16] MEDS: ATIVAN IV PRN ×2 (04:20→16:15)
[2019-02-16 05:33] LABS: Hematocrit 35.1 % (30.3-42.9); Hemoglobin 11.3 gm/dl (10.1-14.3); Mean Corpuscular HGB Conc 32 % (30-34); Mean Corpuscular Volume 81 fl (79-97); Platelet Count 346 K/mm3 (140-440); Red Blood Count 4.32 M/mm3 (3.65-5.03); Red Cell Distribution Width 15.8 % (13.2-15.2)
[2019-02-16 05:56] LABS: Alanine Aminotransferase 8 units/L (7-56); Albumin 3.8 g/dL (3.9-5); BUN/Creatinine Ratio 25; Blood Urea Nitrogen 10 mg/dL (7-17); Calcium 9.7 mg/dL (8.4-10.2); Hemolysis Index 34
[2019-02-16] MEDS: SOLU-Medrol IV SCH ×3 (06:26→21:31)
[2019-02-16] MEDS: DUONEB *Not for PRN Use IH SCH ×4 (07:42→21:44)
[2019-02-16 08:11] LABS: Basophils % (Manual) 0 % (0.0-1.8); Eosinophils % (Manual) 0 % (0.0-4.3); Platelet Estimate Consistent w Auto; RBC Morphology Normal; Total Cells Counted 100
[2019-02-16] MEDS: HumaLOG SUB-Q SCH ×4 (08:22→22:00)
--- NOTE | 2019-02-16 09:37 | Consultation ---
History of Present Illness Consult date: 02/16/19 Requesting physician: LUIS FERNANDO WILLIS Reason for consult: COPD, hypoxemia History of present illness: The patient is a 43-year-old female presenting with a chief complaint shortness of breath. Patient states her symptoms began last night with shortness of breath consistent with her COPD. The patient states she attempted to use her nebulizer twice this morning and it only helped transiently. Patient denies pain of any type at this time. Patient states her symptoms feel consistent with an exacerbation of her COPD Medications and Allergies Allergies Allergy/AdvReac Type Severity Reaction Status Date / Time iodine Allergy Rash Verified 09/29/18 15:56 shellfish derived Allergy Rash Verified 09/29/18 15:56 Home Medications Medication Instructions Recorded Confirmed Last Taken Type Naproxen [Naprosyn TAB] 500 mg PO BID PRN 02/22/18 02/15/19 Unknown History ALBUTEROL NEB's [Proventil 0.083% 5 mg IH TID PRN #20 neb 07/12/18 02/15/19 Unknown Rx NEBS] Ibuprofen [Motrin 800 MG tab] 800 mg PO Q8HR PRN 09/29/18 02/15/19 Unknown History metFORMIN [Glucophage] 500 mg PO BID 09/29/18 02/15/19 Unknown History hydroCHLOROthiazide [HCTZ] 12.5 mg PO DAILY 09/30/18 02/15/19 Unknown History Aspirin 325 mg PO QDAY 02/15/19 02/15/19 Unknown History Metoprolol Xl [Metoprolol 25 mg PO QDAY 02/15/19 02/15/19 Unknown History SUCCINATE ER TAB] Phentermine HCl 37.5 mg PO QAM 02/15/19 02/15/19 Unknown History ALBUTEROL Inhaler (OR & NICU) 2 puff IH QID PRN 30 Days 02/17/19 Unknown Rx [ProAir HFA Inhaler] inhalation Ipratropium/Albuterol Sulfate 1 ampul IH QIDRT #90 ampul.neb 02/17/19 Unknown Rx [DUONEB *Not for PRN Use*] Nicotine [Habitrol] 14 mg TD QDAY #30 patch 02/17/19 Unknown Rx Prednisone [predniSONE 5 mg (6-Day 5 mg PO .TAPER #1 tab.ds.pk 02/17/19 Unknown Rx Pack, 21 Tabs)] levoFLOXacin [Levaquin] 750 mg PO QDAY #7 tablet 02/17/19 Unknown Rx Active Meds: Active Medications Acetaminophen (Tylenol) 650 mg PO Q4H PRN PRN Reason: Pain MILD(1-3)/Fever >100.5/CESAR Albuterol (Proventil) 5 mg IH TID PRN PRN Reason: Wheezing Albuterol (Proventil) 2.5 mg IH Q4HRT PRN PRN Reason: Shortness Of Breath Last Admin: 02/16/19 01:28 Dose: 2.5 mg Documented by: Albuterol/Ipratropium (Duoneb *Not For Prn Use*) 1 ampul IH QIDRT [facility] Last Admin: 02/16/19 07:42 Dose: 1 ampul Documented by: Aspirin (Aspirin) 325 mg PO QDAY [facility] Last Admin: 02/15/19 18:04 Dose: 325 mg Documented by: Famotidine (Pepcid) 20 mg IV BID [facility] Last Admin: 02/15/19 21:42 Dose: 20 mg Documented by: Hydralazine HCl (Apresoline) 10 mg IV Q4H PRN PRN Reason: Blood Pressure Hydrochlorothiazide (Hctz) 12.5 mg PO DAILY [facility] Last Admin: 02/15/19 18:08 Dose: 12.5 mg Documented by: Hydromorphone HCl (Dilaudid) 0.5 mg IV Q3H PRN PRN Reason: Pain , Severe (7-10) Levofloxacin/Dextrose (Levaquin 750mg/150ml) 750 mg in 150 mls @ 100 mls/hr IV Q24HR [facility]; Protocol Last Admin: 02/15/19 18:04 Dose: 100 mls/hr Documented by: Ibuprofen (Ibuprofen) 800 mg PO Q8HR PRN PRN Reason: Pain , Severe (7-10) Insulin Human Lispro (Humalog) 0 unit SUB-Q ACHS [facility]; Protocol Last Admin: 02/16/19 08:22 Dose: Not Given Documented by: Lorazepam (Ativan) 1 mg IV Q4H PRN PRN Reason: Anxiety Last Admin: 02/16/19 04:20 Dose: 1 mg Documented by: Metformin HCl (Glucophage) 500 mg PO BID [facility] Last Admin: 02/15/19 21:42 Dose: 500 mg Documented by: Methylprednisolone Sodium Succinate (Solu-Medrol) 125 mg IV Q8HR [facility] Last Admin: 02/16/19 06:26 Dose: 125 mg Documented by: Metoprolol Succinate (Toprol Xl) 25 mg PO QDAY [facility] Last Admin: 02/15/19 18:04 Dose: 25 mg Documented by: Ondansetron HCl (Zofran) 4 mg IV Q8H PRN PRN Reason: Nausea And Vomiting Oxycodone/Acetaminophen (Percocet 5/325) 1 tab PO Q6H PRN PRN Reason: Pain, Moderate (4-6) Sodium Chloride (Sodium Chloride Flush Syringe 10 Ml) 10 ml IV BID [facility] Last Admin: 02/15/19 21:42 Dose: 10 ml Documented by: Sodium Chloride (Sodium Chloride Flush Syringe 10 Ml) 10 ml IV PRN PRN PRN Reason: LINE FLUSH Zolpidem Tartrate (Ambien) 5 mg PO QHS PRN PRN Reason: Sleep Last Admin: 02/16/19 01:19 Dose: 5 mg Documented by: Physical Examination Vital signs: Vital Signs Pulse Resp BP Pulse Ox 103 H 33 H 143/83 100 02/15/19 09:25 02/15/19 09:25 02/15/19 09:25 02/15/19 09:25 General appearance: Present: mild distress, obese - EENT Eyes: Present: PERRL ENT: hearing intact, clear oral mucosa - Neck Neck: Present: supple, normal ROM - Respiratory Respiratory effort: normal Respiratory: left: diminished, bilateral: wheezing - Cardiovascular Rhythm: regular Heart Sounds: Present: S1 & S2. Absent: systolic murmur - Extremities Extremities: no ischemia, pulses intact, pulses symmetrical, No edema, normal temperature, Full ROM Peripheral Pulses: within normal limits - Abdominal General gastrointestinal: soft, non-tender, non-distended, normal bowel sounds - Integumentary Integumentary: Present: clear (tattoo and upper lip piercing), warm, dry - Psychiatric Psychiatric: appropriate mood/affect, intact judgment & insight, memory intact, cooperative - Neurologic Neurologic: CNII-XII intact Results - Laboratory Findings CBC and BMP: 02/16/19 05:00 02/16/19 05:00 ABG POC ABG pH 7.378 (7.35-7.45) 02/15/19 12:01 POC ABG pCO2 47.8 (35-45) H 02/15/19 12:01 POC ABG pO2 202 (80-105) H 02/15/19 12:01 POC ABG HCO3 28.1 (22-26 mml/L) 02/15/19 12:01 POC ABG Total CO2 30 (23-27mmol/L) 02/15/19 12:01 POC ABG O2 Sat 100 02/15/19 12:01 PT/INR, D-dimer PT 12.8 Sec. (12.2-14.9) 02/15/19 09:23 INR 0.99 (0.87-1.13) 02/15/19 09:23 Abnormal lab findings: Abnormal Labs 02/15/19 02/15/19 02/15/19 09:23 09:23 12:01 WBC MCH 27 L RDW 15.4 H Seg Neutrophils % 70.7 H Seg Neuts % (Manual) Lymphocytes % (Manual) Seg Neutrophils # Man Lymphocytes # (Manual) POC ABG pCO2 47.8 H POC ABG pO2 202 H Potassium 3.5 L Creatinine 0.5 L Glucose 142 H POC Glucose Albumin 02/15/19 02/16/19 02/16/19 21:52 05:00 05:00 WBC 13.6 H MCH 26 L RDW 15.8 H Seg Neutrophils % Seg Neuts % (Manual) 92.0 H Lymphocytes % (Manual) 6.0 L Seg Neutrophils # Man 12.5 H Lymphocytes # (Manual) 0.8 L POC ABG pCO2 POC ABG pO2 Potassium Creatinine 0.4 L Glucose 131 H POC Glucose 180 H Albumin 3.8 L Assessment and Plan Acute on chronic Respiratory failure, on home oxygen at 2L/min COPD/Asthma exacerbation Hyperglycemia without diagnosis of DM Morbid Obesity HTN Tobacco use disorder, vaping Marajuana use Lupus Headache-Improving Plan Supportive care wean oxygen as tolerated sliding scale insulin need Continue duonebs, LABA, ICS WEIGHTLOSS AND TOBACCO COUNSELLING FOR 30 MINS
[2019-02-16] MEDS ORDERED: RESTORIL PO PRN (11:05)
[2019-02-16] MEDS: ASPIRIN PO SCH (12:35)
[2019-02-16] MEDS: HCTZ PO SCH (12:35)
[2019-02-16] MEDS: GLUCOPHAGE PO SCH ×2 (12:35→21:30)
[2019-02-16] MEDS: SODIUM CHLORIDE FLUSH SYRINGE 10 ML IV SCH ×2 (12:36→21:32)
[2019-02-16] MEDS: TOPROL XL PO SCH ×2 (12:36→12:39)
--- NOTE | 2019-02-16 13:04 | Progress Note ---
Assessment and Plan Assessment and plan: Patient is a 43 year old female wth hx of Post cardiomyopathy, htn, sleep apnea on CPAP, Asthma, arthritis, Morbid obesity, and continued tobacco use admitted with respiratory failure Acute Respiratory failure COPD/Asthma exacerbation Hyperglycemia without diagnosis of DM Morbid Obesity HTN Tobacco use disorder Lupus Headache-Improving Plan Supportive care wean oxygen as tolerated Pulmonary consult sliding scale insulin need discussed with patient Continue duonebs, LABA, ICS WEIGHTLOSS AND TOBACCO COUNSELLING FOR 30 MINS DVT/GI PROPHY ANTICIPATE DISCHARGE IN 24-48HRS History Interval history: Patient seen and examined, reports that although she has noted some improvement, shortness of breath persist. she hates that she on diabetic diet. Denies any chest pain but reports intermittent head and per her is normal when she has acute exacerbation of her shortness of breath. Hospitalist Physical - Constitutional Vitals: Temp Pulse Resp BP Pulse Ox 97.8 F 103 H 22 155/95 100 02/16/19 11:51 02/16/19 11:51 02/16/19 11:51 02/16/19 11:51 02/16/19 11:51 General appearance: Present: mild distress, obese - EENT Eyes: Present: PERRL ENT: hearing intact, clear oral mucosa - Neck Neck: Present: supple, normal ROM - Respiratory Respiratory effort: normal Respiratory: left: diminished, bilateral: wheezing - Cardiovascular Rhythm: regular Heart Sounds: Present: S1 & S2. Absent: systolic murmur - Extremities Extremities: no ischemia, pulses intact, pulses symmetrical, No edema, normal temperature, Full ROM Peripheral Pulses: within normal limits - Abdominal General gastrointestinal: soft, non-tender, non-distended, normal bowel sounds - Integumentary Integumentary: Present: clear (tattoo and upper lip piercing), warm, dry - Psychiatric Psychiatric: appropriate mood/affect, intact judgment & insight, memory intact, cooperative - Neurologic Neurologic: CNII-XII intact Results - Labs CBC & Chem 7: 02/16/19 05:00 02/16/19 05:00 Labs: Laboratory Last Values WBC 13.6 K/mm3 (4.5-11.0) H 02/16/19 05:00 RBC 4.32 M/mm3 (3.65-5.03) 02/16/19 05:00 Hgb 11.3 gm/dl (10.1-14.3) 02/16/19 05:00 Hct 35.1 % (30.3-42.9) 02/16/19 05:00 MCV 81 fl (79-97) 02/16/19 05:00 MCH 26 pg (28-32) L 02/16/19 05:00 MCHC 32 % (30-34) 02/16/19 05:00 RDW 15.8 % (13.2-15.2) H 02/16/19 05:00 Plt Count 346 K/mm3 (140-440) 02/16/19 05:00 Lymph % (Auto) 19.5 % (13.4-35.0) 02/15/19 09:23 [place] % (Auto) 5.5 % (0.0-7.3) 02/15/19 09:23 Eos % (Auto) 3.7 % (0.0-4.3) 02/15/19 09:23 Baso % (Auto) 0.6 % (0.0-1.8) 02/15/19 09:23 Lymph # 1.6 K/mm3 (1.2-5.4) 02/15/19 09:23 [place] # 0.5 K/mm3 (0.0-0.8) 02/15/19 09:23 Eos # 0.3 K/mm3 (0.0-0.4) 02/15/19 09:23 Baso # 0.1 K/mm3 (0.0-0.1) 02/15/19 09:23 Add Manual Diff Complete 02/16/19 05:00 Total Counted 100 02/16/19 05:00 Seg Neutrophils % 70.7 % (40.0-70.0) H 02/15/19 09:23 Seg Neuts % (Manual) 92.0 % (40.0-70.0) H 02/16/19 05:00 0 % 02/16/19 05:00 6.0 % (13.4-35.0) L 02/16/19 05:00 Reactive Lymphs % (Man) 0 % 02/16/19 05:00 2.0 % (0.0-7.3) 02/16/19 05:00 0 % (0.0-4.3) 02/16/19 05:00 0 % (0.0-1.8) 02/16/19 05:00 0 % 02/16/19 05:00 0 % 02/16/19 05:00 0 % 02/16/19 05:00 0 % 02/16/19 05:00 Nucleated RBC % Not Reportable 02/16/19 05:00 Seg Neutrophils # 5.9 K/mm3 (1.8-7.7) 02/15/19 09:23 Seg Neutrophils # Man 12.5 K/mm3 (1.8-7.7) H 02/16/19 05:00 Band Neutrophils # 0.0 K/mm3 02/16/19 05:00 0.8 K/mm3 (1.2-5.4) L 02/16/19 05:00 Abs React Lymphs (Man) 0.0 K/mm3 02/16/19 05:00 0.3 K/mm3 (0.0-0.8) 02/16/19 05:00 0.0 K/mm3 (0.0-0.4) 02/16/19 05:00 0.0 K/mm3 (0.0-0.1) 02/16/19 05:00 0.0 K/mm3 02/16/19 05:00 0.0 K/mm3 02/16/19 05:00 0.0 K/mm3 02/16/19 05:00 Blast Cells # 0.0 K/mm3 02/16/19 05:00 WBC Morphology Not Reportable 02/16/19 05:00 Hypersegmented Neuts Not Reportable 02/16/19 05:00 Hyposegmented Neuts Not Reportable 02/16/19 05:00 Hypogranular Neuts Not Reportable 02/16/19 05:00 Not Reportable 02/16/19 05:00 Not Reportable 02/16/19 05:00 Not Reportable 02/16/19 05:00 Not Reportable 02/16/19 05:00 Not Reportable 02/16/19 05:00 Not Reportable 02/16/19 05:00 Consistent w auto 02/16/19 05:00 Not Reportable 02/16/19 05:00 Plt Clumps, EDTA Not Reportable 02/16/19 05:00 Not Reportable 02/16/19 05:00 Not Reportable 02/16/19 05:00 Not Reportable 02/16/19 05:00 Plt Morphology Comment Not Reportable 02/16/19 05:00 RBC Morphology Normal 02/16/19 05:00 Dimorphic RBCs Not Reportable 02/16/19 05:00 Not Reportable 02/16/19 05:00 Not Reportable 02/16/19 05:00 Not Reportable 02/16/19 05:00 Not Reportable 02/16/19 05:00 Not Reportable 02/16/19 05:00 Not Reportable 02/16/19 05:00 Not Reportable 02/16/19 05:00 Not Reportable 02/16/19 05:00 Not Reportable 02/16/19 05:00 Not Reportable 02/16/19 05:00 Not Reportable 02/16/19 05:00 Not Reportable 02/16/19 05:00 Not Reportable 02/16/19 05:00 Not Reportable 02/16/19 05:00 Not Reportable 02/16/19 05:00 Not Reportable 02/16/19 05:00 Not Reportable 02/16/19 05:00 Not Reportable 02/16/19 05:00 Not Reportable 02/16/19 05:00 Acanthocytes (Spur) Not Reportable 02/16/19 05:00 [place]leaux Not Reportable 02/16/19 05:00 Not Reportable 02/16/19 05:00 Not Reportable 02/16/19 05:00 Not Reportable 02/16/19 05:00 Not Reportable 02/16/19 05:00 Hem Pathologist Commnt No 02/16/19 05:00 PT 12.8 Sec. (12.2-14.9) 02/15/19 09:23 INR 0.99 (0.87-1.13) 02/15/19 09:23 APTT 32.4 Sec. (24.2-36.6) 02/15/19 09:23 POC ABG pH 7.378 (7.35-7.45) 02/15/19 12:01 POC ABG pCO2 47.8 (35-45) H 02/15/19 12:01 POC ABG pO2 202 (80-105) H 02/15/19 12:01 POC ABG HCO3 28.1 (22-26 mml/L) 02/15/19 12:01 POC ABG Total CO2 30 (23-27mmol/L) 02/15/19 12:01 POC ABG O2 Sat 100 02/15/19 12:01 POC ABG Base Excess 3 ((-2) - (+3)mmol/L) 02/15/19 12:01 55 % 02/15/19 12:01 Sodium 139 mmol/L (137-145) 02/16/19 05:00 Potassium 4.1 mmol/L (3.6-5.0) 02/16/19 05:00 Chloride 100.6 mmol/L (98-107) 02/16/19 05:00 Carbon Dioxide 27 mmol/L (22-30) 02/16/19 05:00 16 mmol/L 02/16/19 05:00 BUN 10 mg/dL (7-17) 02/16/19 05:00 0.4 mg/dL (0.7-1.2) L 02/16/19 05:00 Estimated GFR > 60 ml/min 02/16/19 05:00 25 % 02/16/19 05:00 Glucose 131 mg/dL (65-100) H 02/16/19 05:00 POC Glucose 127 (70-105) H 02/16/19 11:21 5.6 % (4-6) 02/15/19 18:52 Calcium 9.7 mg/dL (8.4-10.2) 02/16/19 05:00 < 0.20 mg/dL (0.1-1.2) 02/16/19 05:00 AST 11 units/L (5-40) 02/16/19 05:00 ALT 8 units/L (7-56) 02/16/19 05:00 74 units/L (35-129) 02/16/19 05:00 52 units/L (30-135) 02/15/19 09:23 CK-MB (CK-2) 1.4 ng/mL (0.0-4.0) 02/15/19 09:23 CK-MB (CK-2) Rel Index 2.6 (0-4) 02/15/19 09:23 < 0.010 ng/mL (0.00-0.029) 02/15/19 09:23 NT-Pro-B Natriuret Pep 176.8 pg/mL (0-450) 02/15/19 09:23 7.5 g/dL (6.3-8.2) 02/16/19 05:00 3.8 g/dL (3.9-5) L 02/16/19 05:00 1.0 % 02/16/19 05:00 HCG, Qual Negative (Negative) 02/15/19 09:23 Active Medications - Current Medications Current Medications: Generic Name Dose Route Start Last Admin Trade Name Freq PRN Reason Stop Dose Admin Acetaminophen 650 mg 02/15/19 17:29 Tylenol PO Q4H PRN Pain MILD(1-3)/Fever >100.5/CESAR Albuterol 5 mg 02/15/19 17:25 Proventil IH TID PRN Wheezing Albuterol 2.5 mg 02/15/19 17:34 02/16/19 11:25 Proventil IH 2.5 mg Q4HRT PRN Administration Shortness Of Breath Albuterol/Ipratropium 1 ampul 02/15/19 20:00 02/16/19 07:42 Duoneb *Not For Prn Use* IH 1 ampul QIDRT DARIUSZ Administration Aspirin 325 mg 02/15/19 18:00 02/16/19 12:35 Aspirin PO 325 mg QDAY DARIUSZ Administration Famotidine 20 mg 02/15/19 22:00 02/15/19 21:42 Pepcid IV 20 mg BID DARIUSZ Administration Hydralazine HCl 10 mg 02/16/19 00:36 Apresoline IV Q4H PRN Blood Pressure Hydrochlorothiazide 12.5 mg 02/15/19 18:00 02/16/19 12:35 Hctz PO 12.5 mg DAILY DARIUSZ Administration Hydromorphone HCl 0.5 mg 02/15/19 17:29 Dilaudid IV Q3H PRN Pain , Severe (7-10) Levofloxacin/Dextrose 750 mg in 150 mls @ 100 mls/hr 02/15/19 18:00 02/15/19 18:04 Levaquin 750mg/150ml IV 100 mls/hr Q24HR DARIUSZ Administration Protocol Ibuprofen 800 mg 02/15/19 17:25 Ibuprofen PO Q8HR PRN Pain, Moderate (4-6) Insulin Human Lispro 0 unit 02/15/19 22:00 02/16/19 08:22 Humalog SUB-Q Not Given ACHS [facility] Protocol Lorazepam 1 mg 02/15/19 17:21 02/16/19 04:20 Ativan IV 1 mg Q4H PRN Administration Anxiety Metformin HCl 500 mg 02/15/19 22:00 02/16/19 12:35 Glucophage PO 500 mg BID DARIUSZ Administration Methylprednisolone Sodium Succinate 80 mg 02/16/19 11:04 Solu-Medrol IV Q8HR [facility] Metoprolol Succinate 25 mg 02/15/19 18:00 02/16/19 12:39 Toprol Xl PO Not Given QDAY DARIUSZ Ondansetron HCl 4 mg 02/15/19 17:29 Zofran IV Q8H PRN Nausea And Vomiting Oxycodone/Acetaminophen 1 tab 02/15/19 17:29 Percocet 5/325 PO Q6H PRN Pain, Moderate (4-6) Sodium Chloride 10 ml 02/15/19 22:00 02/16/19 12:36 Sodium Chloride Flush Syringe 10 Ml IV 10 ml BID DARIUSZ Administration Sodium Chloride 10 ml 02/15/19 17:29 Sodium Chloride Flush Syringe 10 Ml IV PRN PRN LINE FLUSH Temazepam 15 mg 02/16/19 11:05 Restoril PO QHS PRN Insomnia
[2019-02-16] MEDS: LEVAQUIN 750MG/150ML 750 MG/150 ML BAG IV SCH (15:56)
[2019-02-16] MEDS: PEPCID IV SCH ×2 (15:56→21:30)
[2019-02-16] MEDS: HABITROL TD SCH (18:45)
[2019-02-17] MEDS: ATIVAN IV PRN ×2 (02:07→07:52)
[2019-02-17] MEDS: SOLU-Medrol IV SCH ×2 (06:03→17:52)
[2019-02-17] MEDS: DUONEB *Not for PRN Use IH SCH ×3 (07:41→15:00)
[2019-02-17] MEDS: TYLENOL PO PRN ×2 (07:52→15:58)
[2019-02-17] MEDS: HumaLOG SUB-Q SCH ×2 (08:36→12:41)
--- NOTE | 2019-02-17 11:52 | Discharge Summary ---
Providers - Providers Date of Admission: 02/15/19 12:25 Attending physician: AUNG AL MD 02/15/19 20:32 Consult to Physician [CONS] Routine Comment: Consulting Provider: MEHDI COLUNGA Physician Instructions: Reason For Exam: acute respiratory failure Primary care physician: JOSUE WATERS Hospitalization Reason for admission: shortness breath Condition: Stable Hospital course: Patient is a 43 year old female wth hx of Post cardiomyopathy, htn, sleep apnea on CPAP, Asthma, arthritis, Morbid obesity, and continued tobacco use admitted with respiratory failure.. Patient was treated with nebulizer and steroids. The patient was also given counselling extensively on tobacco and obesity. Patient was managed by online communications specialist with continued counselling on compliance with CPAP. she continued to ambulate the [address] without oxygen and with no evidence of shortness of breath, although she still had some wheezing. Today she is much improved and ready for discharge. Acute Respiratory failure COPD/Asthma exacerbation Hyperglycemia without diagnosis of DM Morbid Obesity HTN Tobacco use disorder Lupus Headache-Improved Disposition: DC- TO HOME OR SELFCARE Time spent for discharge: 35 mins Core Measure Documentation - Palliative Care Palliative Care/ Comfort Measures: Not Applicable - Core Measures Any of the following diagnoses?: none Exam - Constitutional Vitals: Temp Pulse Resp BP Pulse Ox 97.8 F 105 H 20 139/92 100 02/16/19 23:51 02/17/19 07:41 02/17/19 07:41 02/16/19 23:51 02/17/19 07:41 General appearance: Present: no acute distress, well-nourished, obese - EENT Eyes: Present: PERRL ENT: clear oral mucosa - Neck Neck: Present: supple, normal ROM - Respiratory Respiratory effort: normal - Cardiovascular Rhythm: regular Heart Sounds: Present: S1 & S2, systolic murmur - Extremities Extremities: no ischemia, pulses intact, No edema, Full ROM Peripheral Pulses: within normal limits - Abdominal General gastrointestinal: Present: soft, non-tender, non-distended, normal bowel sounds - Integumentary Integumentary: Present: clear, warm (tattoo) - Musculoskeletal Musculoskeletal: strength equal bilaterally - Psychiatric Psychiatric: appropriate mood/affect, intact judgment & insight, memory intact, cooperative - Neurologic Neurologic: CNII-XII intact, moves all extremities - Allied Health Allied health notes reviewed: nursing Plan Activity: advance as tolerated Diet: low fat Special Instructions: record daily BP diary, smoking cessation Additional Instructions: Follow up with your Finish Filer for Lupus management Follow up with: JOSUE WATERS MD [Primary Care Provider] - 3-5 Days MEHDI COLUNGA MD [Staff Physician] - 7 Days Forms: Work/School Release Form(ED) Prescriptions: metFORMIN [Glucophage] 500 mg PO BID #30 tablet Nicotine [Habitrol] 14 mg TD QDAY #30 patch hydroCHLOROthiazide [HCTZ] 12.5 mg PO DAILY #30 tablet levoFLOXacin [Levaquin] 750 mg PO QDAY #7 tablet Metoprolol Xl [Metoprolol SUCCINATE ER TAB] 25 mg PO QDAY #30 tablet Naproxen [Naprosyn TAB] 500 mg PO BID PRN #10 tablet PRN Reason: arthritis pain Prednisone [predniSONE 5 mg (6-Day Pack, 21 Tabs)] 5 mg PO .TAPER #1 tab.ds.pk ALBUTEROL Inhaler (OR & NICU) [ProAir HFA Inhaler] 2 puff IH QID PRN 30 Days inhalation PRN Reason: Shortness Of Breath Ipratropium/Albuterol Sulfate [DUONEB *Not for PRN Use*] 1 ampul IH QIDRT #90 ampul.neb
[2019-02-17] MEDS: PEPCID IV SCH (12:38)
[2019-02-17 12:40] VITALS: BP 157/98
[2019-02-17] MEDS: LEVAQUIN 750MG/150ML 750 MG/150 ML BAG IV SCH (12:40)
[2019-02-17] MEDS: TOPROL XL PO SCH (12:40)
[2019-02-17] MEDS: ASPIRIN PO SCH (13:22)
[2019-02-17] MEDS: GLUCOPHAGE PO SCH (13:22)
[2019-02-17] MEDS: HCTZ PO SCH (13:23)
[2019-02-17] MEDS: HABITROL TD SCH (13:23)
--- NOTE | 2019-02-17 13:46 | Progress Note ---
Assessment and Plan Acute on chronic Respiratory failure, on home oxygen at 2L/min COPD/Asthma exacerbation Hyperglycemia without diagnosis of DM Morbid Obesity HTN Tobacco use disorder, vaping [place]aju[place] use Lupus Headache-Improving Plan Supportive care wean oxygen as tolerated sliding scale insulin need Continue duonebs, LABA, ICS WEIGHTLOSS AND TOBACCO COUNSELLING FOR 30 MINS Subjective Date of service: 02/17/19 Objective Vital Signs - 12hr 02/17/19 02/17/19 02/17/19 01:50 07:41 11:55 Temperature 98.0 F Pulse Rate 97 H 104 H Pulse Rate [ 105 H Anterior Bilateral Throughout] Respiratory 18 24 Rate Respiratory 20 Rate [Anterior Bilateral Throughout] Blood Pressure 157/98 O2 Sat by Pulse 100 100 96 Oximetry CBC and BMP: 02/16/19 05:00 02/16/19 05:00 ABG, PT/INR, D-dimer: ABG POC ABG pH 7.378 (7.35-7.45) 02/15/19 12:01 POC ABG pCO2 47.8 (35-45) H 02/15/19 12:01 POC ABG pO2 202 (80-105) H 02/15/19 12:01 POC ABG HCO3 28.1 (22-26 mml/L) 02/15/19 12:01 POC ABG Total CO2 30 (23-27mmol/L) 02/15/19 12:01 POC ABG O2 Sat 100 02/15/19 12:01 PT/INR, D-dimer PT 12.8 Sec. (12.2-14.9) 02/15/19 09:23 INR 0.99 (0.87-1.13) 02/15/19 09:23 Abnormal lab findings: Abnormal Labs 02/15/19 02/15/19 02/15/19 09:23 09:23 12:01 WBC MCH 27 L RDW 15.4 H Seg Neutrophils % 70.7 H Seg Neuts % (Manual) Lymphocytes % (Manual) Seg Neutrophils # Man Lymphocytes # (Manual) POC ABG pCO2 47.8 H POC ABG pO2 202 H Potassium 3.5 L Creatinine 0.5 L Glucose 142 H POC Glucose Albumin 02/15/19 02/16/19 02/16/19 21:52 05:00 05:00 WBC 13.6 H MCH 26 L RDW 15.8 H Seg Neutrophils % Seg Neuts % (Manual) 92.0 H Lymphocytes % (Manual) 6.0 L Seg Neutrophils # Man 12.5 H Lymphocytes # (Manual) 0.8 L POC ABG pCO2 POC ABG pO2 Potassium Creatinine 0.4 L Glucose 131 H POC Glucose 180 H Albumin 3.8 L 02/16/19 02/16/19 02/16/19 11:21 16:34 22:03 WBC MCH RDW Seg Neutrophils % Seg Neuts % (Manual) Lymphocytes % (Manual) Seg Neutrophils # Man Lymphocytes # (Manual) POC ABG pCO2 POC ABG pO2 Potassium Creatinine Glucose POC Glucose 127 H 126 H 111 H Albumin 02/17/19 07:42 WBC MCH RDW Seg Neutrophils % Seg Neuts % (Manual) Lymphocytes % (Manual) Seg Neutrophils # Man Lymphocytes # (Manual) POC ABG pCO2 POC ABG pO2 Potassium Creatinine Glucose POC Glucose 118 H Albumin
== END 2019-02-17 17:30 | disposition home or self-care (01) | DRG 189 ==
LOC: ED 09:09 → 3A 12:25
PROVIDERS: ADMIT Internal Medicine; ATTEND Internal Medicine
PROC: 4A033R1 Measurement of Arterial Saturation, Peripheral, Percutaneous Approach (ICD-10-PCS; principal; 2019-02-15)
PROC: 5A09357 Assistance with Respiratory Ventilation, Less than 24 Consecutive Hours, Continuous Positive Airway Pressure (ICD-10-PCS; 2019-02-15)
PROC: 5A09357 Assistance with Respiratory Ventilation, Less than 24 Consecutive Hours, Continuous Positive Airway Pressure (ICD-10-PCS; 2019-02-16)
PROC: 5A09357 Assistance with Respiratory Ventilation, Less than 24 Consecutive Hours, Continuous Positive Airway Pressure (ICD-10-PCS; 2019-02-17)
DX: J96.20 Acute and chronic respiratory failure, unspecified whether with hypoxia or hypercapnia (principal); J44.1 Chronic obstructive pulmonary disease with (acute) exacerbation; J45.901 Unspecified asthma with (acute) exacerbation; R73.9 Hyperglycemia, unspecified; E66.01 Morbid (severe) obesity due to excess calories; Z68.41 Body mass index [BMI] 40.0-44.9, adult; F17.200 Nicotine dependence, unspecified, uncomplicated; F12.90 Cannabis use, unspecified, uncomplicated; M32.9 Systemic lupus erythematosus, unspecified; R51 Headache; I42.9 Cardiomyopathy, unspecified; G47.30 Sleep apnea, unspecified; M19.90 Unspecified osteoarthritis, unspecified site; I11.0 Hypertensive heart disease with heart failure; I50.9 Heart failure, unspecified; E88.81 Metabolic syndrome and other insulin resistance; Z71.3 Dietary counseling and surveillance; Z99.81 Dependence on supplemental oxygen; Z71.6 Tobacco abuse counseling; Z91.041 Radiographic dye allergy status; Z91.013 Allergy to seafood; Z79.899 Other long term (current) drug therapy; Z79.82 Long term (current) use of aspirin; Z72.89 Other problems related to lifestyle
CPT/HCPCS: 36415; 71045; 80048; 80053; 82550; 82553; 82803; 82962; 83036; 83880; 84484; 84703; 85007; 85025; 85610; 85730; 94640; 94644; 94760; 96365; 96375; G0378; J0360; J1170; J1815; J1956; J2060; J2930; J3475

== ENCOUNTER 2019-05-09 06:59 | Inpatient (IN) | payer MEDICAID ==
--- NOTE | 2019-05-09 07:27 | Emergency Department Report ---
HPI - General Chief Complaint: Dyspnea/Respdistress Time Seen by Provider: 05/09/19 07:16 - HPI HPI: 43-year-old female with a past medical history that includes hypertension, CHF, asthma, COPD, obesity hypoventilation syndrome, obstructive sleep apnea return to the emergency department with continued shortness of breath. The patient was admitted here 2 days ago but left AMA last night as she did not have anyone to take care of her daughter. However the patient did not have resolution of her symptoms before she left and a worsen this morning. She says she got up to use the bathroom and could not breathe. She is on 2-3 L of oxygen via nasal cannula at home and uses a CPAP at night. The patient was going to be set up to have a stress test done but she left prior to getting his examination done. She denies any chest pain, fever, nausea, vomiting. She is a former smoker. ED Past Medical Hx - Past Medical History Hx Hypertension: Yes Hx Congestive Heart Failure: Yes Hx Diabetes: No Hx Sickle Cell Disease: No Hx Arthritis: Yes Hx Asthma: Yes Hx COPD: Yes Hx HIV: No Additional medical history: Sleep Apnea,.Morbid Obesity - Surgical History Additional Surgical History: x 3, orthopedic (arch replacement) - Social History Smoking Status: Current Every Day Smoker Substance Use Type: None - Medications Home Medications: Home Medications Medication Instructions Recorded Confirmed Last Taken Type ALBUTEROL NEB's [Proventil 0.083% 5 mg IH TID PRN #20 neb 07/12/18 05/07/19 Unknown Rx NEBS] Ibuprofen [Motrin 800 MG tab] 800 mg PO Q8HR PRN 09/29/18 02/15/19 Unknown History Aspirin 325 mg PO QDAY 02/15/19 02/15/19 Unknown History Phentermine HCl 37.5 mg PO QAM 02/15/19 02/15/19 Unknown History ALBUTEROL Inhaler (OR & NICU) 2 puff IH QID PRN 30 Days 02/17/19 05/07/19 Unknown Rx [ProAir HFA Inhaler] inhalation Ipratropium/Albuterol Sulfate 1 ampul IH QIDRT #90 ampul.neb 02/17/19 05/07/19 Unknown Rx [DUONEB *Not for PRN Use*] Metoprolol Xl [Metoprolol 25 mg PO QDAY #30 tablet 02/17/19 05/07/19 Unknown Rx SUCCINATE ER TAB] Naproxen [Naprosyn TAB] 500 mg PO BID PRN #10 tablet 02/17/19 05/07/19 Unknown Rx Nicotine [Habitrol] 14 mg TD QDAY #30 patch 02/17/19 05/07/19 Unknown Rx Prednisone [predniSONE 5 mg (6-Day 5 mg PO .TAPER #1 tab.ds.pk 02/17/19 Unknown Rx Pack, 21 Tabs)] hydroCHLOROthiazide [HCTZ] 12.5 mg PO DAILY #30 tablet 02/17/19 05/07/19 Unknown Rx levoFLOXacin [Levaquin] 750 mg PO QDAY #7 tablet 02/17/19 Unknown Rx metFORMIN [Glucophage] 500 mg PO BID #30 tablet 02/17/19 Unknown Rx Amoxicillin/K Clav Tab [Augmentin 1 tab PO Q12HR 05/07/19 05/07/19 Unknown History 875 mg] diazePAM TAB [Valium] 1 mg PO TID 05/07/19 05/07/19 Unknown History ED Review of Systems ROS: Stated complaint: DIANNA Other details as noted in HPI Comment: All other systems reviewed and negative Constitutional: denies: chills, fever Eyes: denies: eye pain, vision change ENT: denies: ear pain, throat pain Respiratory: orthopnea, shortness of breath, SOB with exertion, wheezing Cardiovascular: denies: chest pain, palpitations Gastrointestinal: denies: abdominal pain, vomiting Genitourinary: denies: dysuria, discharge Musculoskeletal: denies: back pain, arthralgia Skin: denies: rash, lesions Neurological: denies: headache, weakness Physical Exam - Physical Exam Vital Signs: Vital Signs 05/09/19 05/09/19 07:11 07:16 Temperature 97.7 F Pulse Rate 73 78 Respiratory 28 H 43 H Rate Blood Pressure 126/92 126/92 O2 Sat by Pulse 93 100 Oximetry Physical Exam: GENERAL: The patient is well-developed well-nourished. HENT: Normocephalic. Atraumatic. Patient has moist mucous membranes. EYES: Extraocular motions are intact. NECK: Supple. Trachea is midline. CHEST/LUNGS: There is some mild wheezing and coarse breath sounds throughout the chest. There is tachypnea with some accessory muscle use and conversational dyspnea. There is respiratory distress noted. HEART/CARDIOVASCULAR: Regular. There is no tachycardia. There is no murmur. ABDOMEN: Abdomen is soft, nontender. Patient has normal bowel sounds. Obese habitus. SKIN: Skin is warm and dry. NEURO: The patient is awake, alert, and oriented. The patient is cooperative. The patient has no focal neurologic deficits. Normal speech. MUSCULOSKELETAL: There is no tenderness or deformity. There is no evidence of acute injury. ED Course Vital Signs 05/09/19 05/09/19 07:11 07:16 Temperature 97.7 F Pulse Rate 73 78 Respiratory 28 H 43 H Rate Blood Pressure 126/92 126/92 O2 Sat by Pulse 93 100 Oximetry - ABG Interpretation Ph: 7.614 PCO2: 29 PO2: 196 Bicarbonate: 30 Interpretation: respiratory alkalosis, metabolic alkalosis ED Medical Decision Making - Lab Data Result diagrams: 05/09/19 07:31 05/09/19 07:31 - EKG Data -: EKG Interpreted by Me EKG shows normal: sinus rhythm, axis, intervals, QRS complexes (LVH), ST-T waves Rate: normal - EKG Data When compared to previous EKG there are: no significant change Interpretation: unchanged when compared t (05/07/19) - Radiology Data Radiology results: image reviewed interpreted by me: Chest x-ray does not show any acute process. There are no pleural effusions, obvious pneumonia and there is no pneumothorax. - Medical Decision Making This patient returns with shortness of breath and some mild chest discomfort after leaving AGAINST MEDICAL ADVICE last night. The patient once again appears to be in some respiratory distress with tachypnea, conversational dyspnea and some accessory muscle use and requires the BiPAP. ABG shows that the patient has been hyperventilating prior to the BiPAP being placed. Chest x-ray does not show any acute process. Labs are mostly unremarkable except for BNP has started to elevate up to about 650. The patient was given some steroids, breat queenie treatment, magnesium and Lasix and she will be admitted to the hospital for further evaluation and treatment. She was accepted for admission by the hospitalist service. - Differential Diagnosis CHF, COPD, pneumonia Critical Care Time: Yes Critical care time in (mins) excluding proc time.: 31 Critical care attestation.: If time is entered above; I have spent that time in minutes in the direct care of this critically ill patient, excluding procedure time. Critical care time was spent on this patient and doing her initial evaluation, multiple re- evaluations, ordering and interpretation of labs and imaging, ordering of medications, discussion with the patient. Critical Care Time: 31 minutes ED Disposition Clinical Impression: Acute respiratory distress, COPD exacerbation, On home oxygen therapy CHF exacerbation Qualifiers: Heart failure type: unspecified Qualified Code(s): I50.9 - Heart failure, unspecified Dyspnea Qualifiers: Dyspnea type: shortness of breath Qualified Code(s): R06.02 - Shortness of breath; R06.00 - Dyspnea, unspecified; R06.01 - Orthopnea Disposition: 09 OP ADMIT IP TO THIS HOSP Is pt being admited?: Yes Condition: Serious Time of Disposition: 09:18
[2019-05-09 08:26] LABS: Basophils # (Auto) 0.1 K/mm3 (0.0-0.1); Eosinophils # (Auto) 0.1 K/mm3 (0.0-0.4); Eosinophils % (Auto) 0.4 % (0.0-4.3); Hematocrit 36.7 % (30.3-42.9); Hemoglobin 11.6 gm/dl (10.1-14.3); Lymphocytes # (Auto) 4.1 K/mm3 (1.2-5.4); Lymphocytes % (Auto) 32.2 % (13.4-35.0); Mean Corpuscular HGB Conc 32 % (30-34); Mean Corpuscular Volume 82 fl (79-97); Monocytes # (Auto) 0.9 K/mm3 (0.0-0.8); Platelet Count 317 K/mm3 (140-440); Red Blood Count 4.48 M/mm3 (3.65-5.03); Red Cell Distribution Width 16.6 % (13.2-15.2)
--- NOTE | 2019-05-09 08:26 | XRay Report ---
CHEST 1 VIEW INDICATION: Shortness of breath. COMPARISON: 05/07/2019 FINDINGS: Support devices: None. Heart: Within normal limits. Lungs/Pleura: No acute air space or interstitial disease. Previously described streaky bibasilar opac ities have resolved. Additional findings: None. IMPRESSION: Unremarkable AP chest. Signer Name: Lakhwinder Mccabe Jr, MD Signed: 05/09/2019 8:21 AM Workstation Name: [id number]
[2019-05-09] MEDS ORDERED: methylPREDNISolone Sod Succinate 125 MG/2 ML INJ IV ONE (08:36)
[2019-05-09] MEDS ORDERED: MAGNESIUM SULFATE 2 GM/50 ML BAG IV ONE (08:37)
[2019-05-09 08:57] LABS: Alanine Aminotransferase 7 units/L (7-56); Albumin 3.9 g/dL (3.9-5); BUN/Creatinine Ratio 27; Blood Urea Nitrogen 19 mg/dL (7-17); Calcium 9.4 mg/dL (8.4-10.2); Hemolysis Index 4
[2019-05-09] MEDS ORDERED: POTASSIUM CHLORIDE ER 20 MEQ TAB PO ONE ×2 (09:00→20:00)
[2019-05-09] MEDS ORDERED: ALBUTEROL 2.5 MG/3 ML NEBU IH ONE (09:00)
[2019-05-09] MEDS ORDERED: FUROSEMIDE 40 MG/4 ML INJ IV ONE (09:03)
--- NOTE | 2019-05-09 13:19 | Consultation ---
History of Present Illness Consult date: 05/09/19 Reason for consult: dyspnea, chest pain, asthma, COPD, obstructive sleep apnea History of present illness: PULMONARY AND CRITICAL CARE CONSULTATION DR. Lackey thank you for asking us to participate in the care of this patient. 43-year-old female with a past medical history that includes hypertension, CHF, asthma, COPD, obesity hypoventilation syndrome, obstructive sleep apnea and history of CVA return to the emergency department with continued shortness of breath. The patient was admitted here 2 days ago but left AMA last night as she did not have anyone to take care of her daughter. However the patient did not have resolution of her symptoms before she left and a worsen this morning. She says she got up to use the bathroom and could not breathe. She is on 2-3 L of oxygen via nasal cannula at home and uses a CPAP at night. The patient was going to be set up to have a stress test done but she left prior to getting his examination done. She denies any chest pain, fever, nausea, vomiting. She is a former smoker. Patient has 22 pack year history of smoking. Denies alcohol or drug abuse. Patient is single and she has 3 children. Allergic to Iodine and shellfish. Patient presently on 2 litres o2. O2 saturation 98%. BIPAP standby in the room. She suppose to use BIPAP during night time for sleep apnea. Chest xray reported unremarkable AP chest. Blood gases showing PH 7.6, PCO2 29.6, PO2 196 , HCO3 30 on 40% FIO2. Patient has metabolic and respiratory alkalosis. Past History Past Medical History: COPD, heart failure, stroke, other (sleep apnea.) Medications and Allergies Allergies Allergy/AdvReac Type Severity Reaction Status Date / Time iodine Allergy Rash Verified 05/07/19 16:02 shellfish derived Allergy Rash Verified 05/07/19 16:02 Home Medications Medication Instructions Recorded Confirmed Last Taken Type ALBUTEROL NEB's [Proventil 0.083% 5 mg IH TID PRN #20 neb 07/12/18 05/09/19 05/09/19 05:30 Rx NEBS] Ibuprofen [Motrin 800 MG tab] 800 mg PO Q8HR PRN 09/29/18 05/09/19 Unknown History Aspirin 325 mg PO QDAY 02/15/19 05/09/19 05/08/19 10:00 History Phentermine HCl 37.5 mg PO QAM 02/15/19 05/09/19 Unknown History ALBUTEROL Inhaler (OR & NICU) 2 puff IH QID PRN 30 Days 02/17/19 05/09/19 05/09/19 05:30 Rx [ProAir HFA Inhaler] inhalation Ipratropium/Albuterol Sulfate 1 ampul IH QIDRT #90 ampul.neb 02/17/19 05/09/19 05/09/19 05:30 Rx [DUONEB *Not for PRN Use*] Metoprolol Xl [Metoprolol 25 mg PO QDAY #30 tablet 02/17/19 05/09/19 05/08/19 10:00 Rx SUCCINATE ER TAB] Naproxen [Naprosyn TAB] 500 mg PO BID PRN #10 tablet 02/17/19 05/09/19 05/08/19 10:00 Rx Nicotine [Habitrol] 14 mg TD QDAY #30 patch 02/17/19 05/09/19 05/08/19 10:00 Rx Prednisone [predniSONE 5 mg (6-Day 5 mg PO .TAPER #1 tab.ds.pk 02/17/19 05/09/19 Unknown Rx Pack, 21 Tabs)] hydroCHLOROthiazide [HCTZ] 12.5 mg PO DAILY #30 tablet 02/17/19 05/09/19 05/08/19 10:00 Rx levoFLOXacin [Levaquin] 750 mg PO QDAY #7 tablet 02/17/19 05/09/19 Unknown Rx metFORMIN [Glucophage] 500 mg PO BID #30 tablet 02/17/19 05/09/19 05/07/19 10:00 Rx Amoxicillin/K Clav Tab [Augmentin 1 tab PO Q12HR 05/07/19 05/09/19 05/08/19 10:00 History 875 mg] diazePAM TAB [Valium] 1 mg PO TID 05/07/19 05/09/19 05/06/19 22:00 History Review of Systems All systems: negative Physical Examination Vital signs: Vital Signs Temp Pulse Resp BP Pulse Ox 97.7 F 73 28 H 126/92 93 05/09/19 07:11 05/09/19 07:11 05/09/19 07:11 05/09/19 07:11 05/09/19 07:11 General appearance: no acute distress, alert Eyes: non-icteric ENT: oropharynx moist Neck: supple, no JVD Effort: mildly labored Ascultation: Bilateral: diminished breath sounds Cardiovascular: regular rate and rhythm Gastrointestinal: normoactive bowel sounds, soft, non-tender Integumentary: normal Extremities: no cyanosis, no edema Musculoskeletal: no deformities Gait: poor gait normal mental status, non-focal exam, pupils equal and round, CN II-XII normal anxious Results - Laboratory Findings CBC and BMP: 05/09/19 07:31 05/09/19 07:31 ABG POC ABG pH 7.614 (7.35-7.45) H 05/09/19 07:43 POC ABG pCO2 29.6 (35-45) L 05/09/19 07:43 POC ABG pO2 196 (80-105) H 05/09/19 07:43 POC ABG HCO3 30.0 (22-26 mml/L) 05/09/19 07:43 POC ABG Total CO2 31 (23-27mmol/L) 05/09/19 07:43 POC ABG O2 Sat 100 05/09/19 07:43 Abnormal lab findings: Abnormal Labs 05/09/19 05/09/19 05/09/19 07:31 07:31 07:43 WBC 12.7 H MCH 26 L RDW 16.6 H [place] # 0.9 H POC ABG pH 7.614 H POC ABG pCO2 29.6 L POC ABG pO2 196 H Potassium 3.3 L BUN 19 H NT-Pro-B Natriuret Pep 675.1 H - Diagnostic Findings Chest x-ray: report reviewed (Reported unremarkable AP chest.) Assessment and Plan 43-year-old female with a past medical history that includes hypertension, CHF, asthma, COPD, obesity hypoventilation syndrome, obstructive sleep apnea and history of CVA return to the emergency department with continued shortness of breath. The patient was admitted here 2 days ago but left AMA last night as she did not have anyone to take care of her daughter. However the patient did not have resolution of her symptoms before she left and a worsen th is morning. She says she got up to use the bathroom and could not breathe. She is on 2-3 L of oxygen via nasal cannula at home and uses a CPAP at night. The patient was going to be set up to have a stress test done but she left prior to getting his examination done. She denies any chest pain, fever, nausea, vomiting. She is a former smoker. Patient has 22 pack year history of smoking. Denies alcohol or drug abuse. Patient is single and she has 3 children. Allergic to Iodine and shellfish. Patient presently on 2 litres o2. O2 saturation 98%. BIPAP standby in the room. She suppose to use BIPAP during night time for sleep apnea. Chest xray reported unremarkable AP chest. Blood gases showing PH 7.6, PCO2 29.6, PO2 196 , HCO3 30 on 40% FIO2. Patient has metabolic and respiratory alkalosis. - Patient Problems (1) COPD with acute exacerbation Current Visit: Yes Status: Acute Plan to address problem: O2 2 litres via nasal canula. BIPAP during night time. (2) CHF exacerbation Current Visit: Yes Status: Acute Qualifiers: Heart failure type: unspecified Qualified Code(s): I50.9 - Heart failure, unspecified Plan to address problem: Patient is on lasix. Management as per cardiology. (3) HTN (hypertension) Current Visit: No Status: Chronic Plan to address problem: Management as per primary care. (4) Morbid obesity Current Visit: No Status: Chronic Plan to address problem: Counselled to loose weight. Diet and exercise. (5) Tobacco use Current Visit: No Status: Chronic Plan to address problem: Patient said she stopped smoking.
--- NOTE | 2019-05-09 13:54 | History and Physical Report ---
History of Present Illness Date of examination: 05/09/19 Date of admission: 05/09/19 09:19 Chief complaint: Shortness of breath History of present illness: Patient is 43 yo with chronic respiratory failure due to COPD, sleep apnea, CHF, hypertension. She just signed out AMA last night and came back this morning because of shortness of breath. Pat was admitted 2 days ago on 05/07/19 for shortness of breath, diagnosed with COPD exacerbation, acute on chronic respir atory failure. However she left against medical advice last night. Again presents with shortness of breath, no chest pain. She is currently on BIPAP. Will re-admit. Past History Past Medical History: COPD, heart failure, hypertension, other (Sleep apnea,asthma,) Past Surgical History: , Other (foot surgery) Social history: lives with family, full code. denies: smoking, alcohol abuse Family history: diabetes, hypertension Medications and Allergies Allergies Allergy/AdvReac Type Severity Reaction Status Date / Time iodine Allergy Rash Verified 05/07/19 16:02 shellfish derived Allergy Rash Verified 05/07/19 16:02 Home Medications Medication Instructions Recorded Confirmed Last Taken Type ALBUTEROL NEB's [Proventil 0.083% 5 mg IH TID PRN #20 neb 07/12/18 05/09/19 05/09/19 05:30 Rx NEBS] Ibuprofen [Motrin 800 MG tab] 800 mg PO Q8HR PRN 09/29/18 05/09/19 Unknown History Aspirin 325 mg PO QDAY 02/15/19 05/09/19 05/08/19 10:00 History Phentermine HCl 37.5 mg PO QAM 02/15/19 05/09/19 Unknown History ALBUTEROL Inhaler (OR & NICU) 2 puff IH QID PRN 30 Days 02/17/19 05/09/19 05/09/19 05:30 Rx [ProAir HFA Inhaler] inhalation Ipratropium/Albuterol Sulfate 1 ampul IH QIDRT #90 ampul.neb 02/17/19 05/09/19 05/09/19 05:30 Rx [DUONEB *Not for PRN Use*] Metoprolol Xl [Metoprolol 25 mg PO QDAY #30 tablet 02/17/19 05/09/19 05/08/19 10:00 Rx SUCCINATE ER TAB] Naproxen [Naprosyn TAB] 500 mg PO BID PRN #10 tablet 02/17/19 05/09/19 05/08/19 10:00 Rx Nicotine [Habitrol] 14 mg TD QDAY #30 patch 02/17/19 05/09/19 05/08/19 10:00 Rx Prednisone [predniSONE 5 mg (6-Day 5 mg PO .TAPER #1 tab.ds.pk 02/17/19 05/09/19 Unknown Rx Pack, 21 Tabs)] hydroCHLOROthiazide [HCTZ] 12.5 mg PO DAILY #30 tablet 02/17/19 05/09/19 05/08/19 10:00 Rx levoFLOXacin [Levaquin] 750 mg PO QDAY #7 tablet 02/17/19 05/09/19 Unknown Rx metFORMIN [Glucophage] 500 mg PO BID #30 tablet 02/17/19 05/09/19 05/07/19 10:00 Rx Amoxicillin/K Clav Tab [Augmentin 1 tab PO Q12HR 05/07/19 05/09/19 05/08/19 10:00 History 875 mg] diazePAM TAB [Valium] 1 mg PO TID 05/07/19 05/09/19 05/06/19 22:00 History Review of Systems All systems: negative (No headache, no fever, no abd pain. All other systems reviewed and are negative) Exam - Physical Exam Narrative exam: Gen: Not in acute distress, lying in bed,obese, on BIPAP HEENT: Normocephalic, atraumatic Neck: supple, no JVD Heart: S1 and S2 reg, no murmurs, rubs or gallop Lungs: Bilateral rhonchi, wheeze Abd: soft, non tender, non distended, normal BS, Ext: No edema, no clubbing, no cyanosis Neuro: Awake, alert, oriented X 3, anxious, no focal neurological signs - Constitutional Vitals: Temp Pulse Resp BP Pulse Ox 97.5 F L 74 22 141/97 100 05/09/19 10:02 05/09/19 10:02 05/09/19 10:02 05/09/19 10:02 05/09/19 10:40 Results - Labs CBC & Chem 7: 05/10/19 06:17 11/06/19 06:17 Labs: Abnormal lab results 11/05/19 11/05/19 11/05/19 Range/Units 07:31 07:31 07:43 WBC 12.7 H (4.5-11.0) K/mm3 MCH 26 L (28-32) pg RDW 16.6 H (13.2-15.2) % [place] # 0.9 H (0.0-0.8) K/mm3 POC ABG pH 7.614 H (7.35-7.45) POC ABG pCO2 29.6 L (35-45) POC ABG pO2 196 H (80-105) Potassium 3.3 L (3.6-5.0) mmol/L BUN 19 H (7-17) mg/dL NT-Pro-B Natriuret Pep 675.1 H (0-450) pg/mL Assessment and Plan Acute on chronic resp failure Admit to Tele Duoneb Q 6hr Albuterol q 6 prn solumedrol iv Consult Pulmonology Chronic diastolic CHF Re-consult cardiology They had seen her yesterday before she left AMA Hypertension Anti-hypertensives Sleep apnea Pulm following Hypokalemia Replace and recheck in am Obesity I counseled her on diet and exercise to lose weight Medical noncompliance patient left against medical advice last night. I discussed with her importnace to stay and complete treatment. Full code status
[2019-05-09] MEDS: methylPREDNISolone Sod Succinate 125 MG/2 ML INJ IV SCH ×2 (14:16→22:12)
[2019-05-09] MEDS ORDERED: ONDANSETRON 4 MG/2 ML INJ IV PRN (16:09)
[2019-05-09] MEDS ORDERED: ALBUTEROL 2.5 MG/3 ML NEBU IH PRN (16:10)
[2019-05-09] MEDS: IPRATROPIUM/ALBUTEROL SULFATE 3 ML AMPUL.NEB IH SCH ×2 (16:45→21:36)
[2019-05-09] MEDS: FUROSEMIDE 20 MG/2 ML INJ IV SCH (17:47)
[2019-05-09] MEDS: diazePAM 2 MG TAB PO SCH (20:35)
[2019-05-09] MEDS: METOPROLOL SUCCINATE XL 25 MG TAB PO SCH (20:36)
[2019-05-09] MEDS: ASPIRIN 325 MG TAB PO SCH (20:37)
[2019-05-09] MEDS: metFORMIN 500 MG TAB PO SCH (22:11)
[2019-05-09] MEDS: ZOLPIDEM 5 MG TAB PO PRN (22:11)
[2019-05-10] MEDS: IPRATROPIUM/ALBUTEROL SULFATE 3 ML AMPUL.NEB IH SCH ×4 (03:58→20:13)
[2019-05-10] MEDS: methylPREDNISolone Sod Succinate 125 MG/2 ML INJ IV SCH ×3 (05:59→21:06)
[2019-05-10] MEDS: FUROSEMIDE 20 MG/2 ML INJ IV SCH ×2 (05:59→17:12)
[2019-05-10 06:31] LABS: Basophils # (Auto) 0.1 K/mm3 (0.0-0.1); Basophils % (Auto) 0.4 % (0.0-1.8); Hematocrit 36.2 % (30.3-42.9); Hemoglobin 11.7 gm/dl (10.1-14.3); Lymphocytes # (Auto) 1.2 K/mm3 (1.2-5.4); Lymphocytes % (Auto) 7.1 % (13.4-35.0); Mean Corpuscular HGB Conc 32 % (30-34); Mean Corpuscular Volume 81 fl (79-97); Monocytes # (Auto) 0.6 K/mm3 (0.0-0.8); Monocytes % (Auto) 3.6 % (0.0-7.3); Platelet Count 289 K/mm3 (140-440); Red Blood Count 4.45 M/mm3 (3.65-5.03); Red Cell Distribution Width 16.2 % (13.2-15.2)
[2019-05-10 06:53] LABS: BUN/Creatinine Ratio 44; Blood Urea Nitrogen 22 mg/dL (7-17); Calcium 9.3 mg/dL (8.4-10.2); Hemolysis Index 1
[2019-05-10] MEDS ORDERED: PHENTERMINE HCL 37.5 MG PO SCH (10:00)
[2019-05-10] MEDS ORDERED: hydroCHLOROthiazide 25 MG TAB PO SCH (10:00)
[2019-05-10] MEDS: ASPIRIN 325 MG TAB PO SCH (10:40)
[2019-05-10] MEDS: hydroCHLOROthiazide 12.5 MG CAP PO SCH (10:41)
[2019-05-10] MEDS: metFORMIN 500 MG TAB PO SCH ×2 (10:41→21:06)
[2019-05-10] MEDS: diazePAM 2 MG TAB PO SCH ×3 (10:41→21:07)
[2019-05-10] MEDS: NICOTINE 14 MG/24 HR PATCH TD SCH (10:42)
[2019-05-10] MEDS: METOPROLOL SUCCINATE XL 25 MG TAB PO SCH (10:44)
--- NOTE | 2019-05-10 11:43 | Consultation ---
History of Present Illness Consult date: 05/10/19 Requesting physician: BRITTANY ÁLVAREZ Consult reason: chest pain, congestive heart failure History of present illness: The patient is a 43 YO female with a past medical history significant for COPD, chronic respiratory failure requiring home O2 (follows Dr. Nava), ? obesity hypoventilation syndrome, HTN, JUDSON, compliant with CPAP, CVA in 07/2017, morbid obesity (has lost over 100lbs over the past 1.5 year), "congestive heart failure" after the of her child 5 years ago, tobacco use (quit smoking in 10/2017), recurrent chest pain. She has seen [facility] in the past. She presented with c/o progressively worsening SOB for the past 5 days. She also reports intermittent chest heaviness. She states that she was recently hospitalized at [facility] (discharged about 3 weeks ago) for COPD exacerbation and acute on chronic respiratory failure. She says that on the day of presentation to [facility], she developed respiratory distress at home and then lost consciousness, was "out of it" and thinks she may have even received chest compressions while en route to [facility]. She doesn't think she underwent any cardiac w/u while at [facility]. Pt was seen by our group at [facility] in 02/2018. At that time, she c/o recurrent chest pain and stress test could not be performed due to body habitus. Pt was offered [facility] but ultimately declined. Pt has been dieting and exercising since that time and has lost a significant amount of weight. She is now a candidate for lexiscan MPI stress testing. Pt was evaluated at [facility] on 05/08 and was scheduled for stress testing. However, pt signed out AMA because she did not have anyone to care for her daughter. She states she is now agreeable to proceed with stress test. She underwent dobutamie stress echo 07/28/2017 which was normal. Echo done 05/06/2019 showed EF 50-55%, mild to mod LVH, LA severely dilated, g rade 2 diastolic dysfunction, mild AR, mod MR, small pericardial effusion not hemodynamically significant. Past History Past Medical History: COPD, heart failure, hypertension, other (Sleep apnea,asthma,) Past Surgical History: , Other (foot surgery) Social history: lives with family, full code. denies: smoking, alcohol abuse Family history: diabetes, hypertension Medications and Allergies Allergies Allergy/AdvReac Type Severity Reaction Status Date / Time iodine Allergy Rash Verified 05/07/19 16:02 shellfish derived Allergy Rash Verified 05/07/19 16:02 Home Medications Medication Instructions Recorded Confirmed Last Taken Type ALBUTEROL NEB's [Proventil 0.083% 5 mg IH TID PRN #20 neb 07/12/18 05/09/19 05/09/19 05:30 Rx NEBS] Ibuprofen [Motrin 800 MG tab] 800 mg PO Q8HR PRN 09/29/18 05/09/19 Unknown History Aspirin 325 mg PO QDAY 02/15/19 05/09/19 05/08/19 10:00 History Phentermine HCl 37.5 mg PO QAM 02/15/19 05/09/19 Unknown History ALBUTEROL Inhaler (OR & NICU) 2 puff IH QID PRN 30 Days 02/17/19 05/09/19 05/09/19 05:30 Rx [ProAir HFA Inhaler] inhalation Ipratropium/Albuterol Sulfate 1 ampul IH QIDRT #90 ampul.neb 02/17/19 05/09/19 05/09/19 05:30 Rx [DUONEB *Not for PRN Use*] Metoprolol Xl [Metoprolol 25 mg PO QDAY #30 tablet 02/17/19 05/09/19 05/08/19 10:00 Rx SUCCINATE ER TAB] Naproxen [Naprosyn TAB] 500 mg PO BID PRN #10 tablet 02/17/19 05/09/19 05/08/19 10:00 Rx Nicotine [Habitrol] 14 mg TD QDAY #30 patch 02/17/19 05/09/19 05/08/19 10:00 Rx Prednisone [predniSONE 5 mg (6-Day 5 mg PO .TAPER #1 tab.ds.pk 02/17/19 05/09/19 Unknown Rx Pack, 21 Tabs)] hydroCHLOROthiazide [HCTZ] 12.5 mg PO DAILY #30 tablet 02/17/19 05/09/19 05/08/19 10:00 Rx levoFLOXacin [Levaquin] 750 mg PO QDAY #7 tablet 02/17/19 05/09/19 Unknown Rx metFORMIN [Glucophage] 500 mg PO BID #30 tablet 02/17/19 05/09/1905/07/19 10:00 Rx Amoxicillin/K Clav Tab [Augmentin 1 tab PO Q12HR 05/07/19 05/09/19 05/08/19 10:00 History 875 mg] diazePAM TAB [Valium] 1 mg PO TID 05/07/19 05/09/19 05/06/19 22:00 History Active Meds: Active Medications Acetaminophen (Tylenol) 650 mg PO Q4H PRN PRN Reason: Pain MILD(1-3)/Fever >100.5/CESAR Albuterol (Proventil) 2.5 mg IH Q4HRT PRN PRN Reason: Shortness Of Breath Albuterol/Ipratropium (Duoneb *Not For Prn Use*) 1 ampul IH Q6HRT [facility] Last Admin: 05/10/19 07:59 Dose: 1 ampul Documented by: Aspirin (Aspirin) 325 mg PO QDAY [facility] Last Admin: 05/10/19 10:40 Dose: 325 mg Documented by: Diazepam (Valium) 1 mg PO TID [facility] Last Admin: 05/10/19 10:41 Dose: 1 mg Documented by: Furosemide (Lasix) 20 mg IV 0600,1800 [facility] Last Admin: 05/10/19 05:59 Dose: 20 mg Documented by: Hydrochlorothiazide (Hctz) 12.5 mg PO QDAY [facility] Last Admin: 05/10/19 10:41 Dose: 12.5 mg Documented by: Metformin HCl (Glucophage) 500 mg PO BID [facility] Last Admin: 05/10/19 10:41 Dose: 500 mg Documented by: Methylprednisolone Sodium Succinate (Solu-Medrol) 60 mg IV Q8HR [facility] Last Admin: 05/10/19 05:59 Dose: 60 mg Documented by: Metoprolol Succinate (Metoprolol Xl) 25 mg PO QDAY [facility] Last Admin: 05/10/19 10:44 Dose: 25 mg Documented by: Nicotine (Habitrol) 14 mg TD QDAY [facility] Last Admin: 05/10/19 10:42 Dose: 14 mg Documented by: Ondansetron HCl (Zofran) 4 mg IV Q8H PRN PRN Reason: Nausea And Vomiting Sodium Chloride (Sodium Chloride Flush Syringe 10 Ml) 10 ml IV BID [facility] Last Admin: 05/10/19 10:40 Dose: 10 ml Documented by: Sodium Chloride (Sodium Chloride Flush Syringe 10 Ml) 10 ml IV PRN PRN PRN Reason: LINE FLUSH Zolpidem Tartrate (Ambien) 5 mg PO QHS PRN PRN Reason: Sleep Last Admin: 05/09/19 22:11 Dose: 5 mg Documented by: Review of Systems Constitutional: no weight loss, no weight gain, no fever, no chills, no sweats Ears, nose, mouth and throat: no ear pain, no nose pain, no sinus pressure, no sinus pain Cardiovascular: chest pain, shortness of breath, dyspnea on exertion, leg edema, decreased exercise tolerance, no orthopnea, no palpitations, no rapid/irregular heart beat, no edema, no syncope, no lightheadedness Respiratory: shortness of breath, dyspnea on exertion, wheezing, no cough, no congestion, no pain on inspiration Gastrointestinal: no abdominal pain, no nausea, no vomiting, no diarrhea, no constipation, no change in bowel habits Genitourinary Female: no pelvic pain, no flank pain, no dysuria, no urinary frequency, no urgency Musculoskeletal: no neck stiffness, no neck pain, no shooting arm pain, no arm numbness/tingling, no low back pain, no shooting leg pain Integumentary: no rash, no pruritis, no redness, no sores, no wounds Neurological: no head injury, no paralysis, no weakness, no parathesias, no numbness, no tingling, no seizures, no syncope Psychiatric: no anxiety Endocrine: no cold intolerance, no heat intolerance Hematologic/Lymphatic: no easy bruising, no easy bleeding Allergic/Immunologic: no urticaria, no wheezing Physical Examination Vital Signs BP 126/92 05/09/19 07:07 General appearance: no acute distress HEENT: Positive: PERRL, Normocephaly, Mucus Membranes Moist Neck: Positive: neck supple, trachea midline Cardiac: Positive: Reg Rate and Rhythm, S1/S2 Lungs: Positive: Decreased Breath Sounds Neuro: Positive: Grossly Intact Abdomen: Negative: Tender Skin: Negative: Rash Musculoskeletal: No Pain Extremities: Absent: edema Results 05/10/19 06:17 05/10/19 06:17 CBC 05/10/19 Range/Units 06:17 WBC 16.8 H (4.5-11.0) K/mm3 RBC 4.45 (3.65-5.03) M/mm3 Hgb 11.7 (10.1-14.3) gm/dl Hct 36.2 (30.3-42.9) % Plt Count 289 (140-440) K/mm3 Lymph # 1.2 (1.2-5.4) K/mm3 [place] # 0.6 (0.0-0.8) K/mm3 Eos # 0.0 (0.0-0.4) K/mm3 Baso # 0.1 (0.0-0.1) K/mm3 Comprehensive Metabolic Panel 05/10/19 Range/Units 06:17 Sodium 141 (137-145) mmol/L Potassium 4.3 D (3.6-5.0) mmol/L Chloride 99.7 (98-107) mmol/L Carbon Dioxide 27 (22-30) mmol/L BUN 22 H (7-17) mg/dL Creatinine 0.5 L (0.7-1.2) mg/dL Glucose 138 H (65-100) mg/dL Calcium 9.3 (8.4-10.2) mg/dL - Imaging and Cardiology Echo: report reviewed (05/06/2019 showed EF 50-55%, mild to mod LVH, LA severely dilated, grade 2 diastolic dysfunction, mild AR, mod MR, small pericardial effusion not hemodynamically significant.) EKG: report reviewed, image reviewed EKG interpretations - Telemetry EKG Rhythm: Sinus Rhythm - EKG Sinus rhythms and dysrhythmias: sinus rhythm Assessment and Plan Agree with present cardiac management. Plan for lexiscan MPI stress test in AM. NPO after MN. The patient has been seen in conjunction with Dr. Antonio who agrees with the assessment and plan of care. - Patient Problems (1) Dyspnea Current Visit: Yes Status: Acute (2) Recurrent chest pain Current Visit: Yes Status: Chronic (3) COPD (chronic obstructive pulmonary disease) Current Visit: Yes Status: Chronic (4) Chronic respiratory failure Current Visit: Yes Status: Chronic (5) Obesity hypoventilation syndrome Current Visit: Yes Status: Suspected (6) Sleep apnea Current Visit: Yes Status: Chronic (7) HTN (hypertension) Current Visit: Yes Status: Chronic (8) History of CVA (cerebrovascular accident) Current Visit: Yes Status: Chronic (9) Morbid obesity Current Visit: Yes Status: Chronic
--- NOTE | 2019-05-10 13:24 | Progress Note ---
Assessment and Plan 43-year-old female with a past medical history that includes hypertension, CHF, asthma, COPD, obesity hypoventilation syndrome, obstructive sleep apnea and history of CVA return to the emergency department with continued shortness of breath. The patient was admitted here 2 days ago but left AMA last night as she did not have anyone to take care of her daughter. However the patient did not have resolution of her symptoms before she left and a worsen this morning. She says she got up to use the bathroom and could not breathe. She is on 2-3 L of oxygen via nasal cannula at home and uses a CPAP at night. The patient was going to be set up to have a stress test done but she left prior to getting his examination done. She denies any chest pain, fever, nausea, vomiting. She is a former smoker. Patient has 22 pack year history of smoking. Denies alcohol or drug abuse. Patient is single and she has 3 children. Allergic to Iodine and shellfish. Patient presently on 2 litres o2. O2 saturation 98%. BIPAP standby in the room. She suppose to use BIPAP during night time for sleep apnea. Chest xray reported unremarkable AP chest. Blood gases showing PH 7.6, PCO2 29.6, PO2 196 , HCO3 30 on 40% FIO2. Patient has metabolic and respiratory alkalosis. 05/10/19 Patient is awake and alert. Patient is on 5 liters of O2 saturation is 97% today. Patient is still complaining of some shortness of breath. BiPAP standby in the room. patient is bipap 14/8, rate of 14. FiO2 40%. Patient scheduled stress test tomorrow. - Patient Problems (1) COPD with acute exacerbation Current Visit: Yes Status: Acute Plan to address problem: O2 2 litres via nasal canula. BIPAP during night time. (2) CHF exacerbation Current Visit: Yes Status: Acute Qualifiers: Heart failure type: unspecified Qualified Code(s): I50.9 - Heart failure, unspecified Plan to address problem: Patient is on lasix. Management as per cardiology. (3) HTN (hypertension) Current Visit: No Status: Chronic Plan to address problem: Management as per primary care. (4) Morbid obesity Current Visit: No Status: Chronic Plan to address problem: Counselled to loose weight. Diet and exercise. (5) Tobacco use Current Visit: No Status: Chronic Plan to address problem: Patient said she stopped smoking. Subjective Date of service: 05/10/19 Interval history: Patient is awake and alert. Patient is on 5 liters of O2 saturation is 97% today . Patient is still complaining of some shortness of breath. BiPAP standby in the room. patient is bipap 14/8, rate of 14. FiO2 40%. Patient scheduled stress test tomorrow. Objective Vital Signs - 12hr 05/10/19 05/10/19 05/10/19 02:00 04:00 04:24 Temperature 98.3 F Pulse Rate 65 86 Pulse Rate [ 89 Posterior Bilateral Throughout] Respiratory 18 16 Rate Respiratory 20 Rate [Posterior Bilateral Throughout] Blood Pressure 111/75 O2 Sat by Pulse 100 99 Oximetry 05/10/19 05/10/19 05/10/19 08:00 10:00 10:44 Temperature Pulse Rate 73 Pulse Rate [ 85 Posterior Bilateral Throughout] Respiratory Rate Respiratory 16 Rate [Posterior Bilateral Throughout] Blood Pressure 132/74 O2 Sat by Pulse 97 Oximetry 05/10/19 11:58 Temperature Pulse Rate Pulse Rate [ 86 Posterior Bilateral Throughout] Respiratory Rate Respiratory 20 Rate [Posterior Bilateral Throughout] Blood Pressure O2 Sat by Pulse Oximetry Constitutional: no acute distress, alert, other (mobidly obese ) Eyes: non-icteric ENT: oropharynx moist Neck: supple, no JVD Effort: mildly labored Ascultation: Bilateral: diminished breath sounds Cardiovascular: regular rate and rhythm Gastrointestinal: normoactive bowel sounds, soft, non-tender Integumentary: normal Extremities: no cyanosis, no edema Neurologic: normal mental status, non-focal exam, pupils equal and round, CN II- XII normal Psychiatric: anxious CBC and BMP: 05/10/19 06:17 05/10/19 06:17 ABG, PT/INR, D-dimer: ABG POC ABG pH 7.614 (7.35-7.45) H 05/09/19 07:43 POC ABG pCO2 29.6 (35-45) L 05/09/19 07:43 POC ABG pO2 196 (80-105) H 05/09/19 07:43 POC ABG HCO3 30.0 (22-26 mml/L) 05/09/19 07:43 POC ABG Total CO2 31 (23-27mmol/L) 05/09/19 07:43 POC ABG O2 Sat 100 05/09/19 07:43 Abnormal lab findings: Abnormal Labs 05/09/19 05/09/19 05/09/19 07:31 07:31 07:43 WBC 12.7 H MCH 26 L RDW 16.6 H Lymph % (Auto) [place] # 0.9 H Seg Neutrophils % Seg Neutrophils # POC ABG pH 7.614 H POC ABG pCO2 29.6 L POC ABG pO2 196 H Potassium 3.3 L BUN 19 H Creatinine Glucose NT-Pro-B Natriuret Pep 675.1 H 05/10/19 05/10/19 06:17 06:17 WBC 16.8 H MCH 26 L RDW 16.2 H Lymph % (Auto) 7.1 L [place] # Seg Neutrophils % 88.9 H Seg Neutrophils # 14.9 H POC ABG pH POC ABG pCO2 POC ABG pO2 Potassium BUN 22 H Creatinine 0.5 L Glucose 138 H NT-Pro-B Natriuret Pep
--- NOTE | 2019-05-10 13:59 | Progress Note ---
Assessment and Plan Assessment and plan: Acute on chronic resp failure Admitted to Tele Duoneb Q 6hr Albuterol q 6 prn solumedrol iv Consulted Pulmonology, following Chronic diastolic CHF Re-consulted cardiology They had seen her yesterday before she left AMA Chest tightness For stress test in am Hypertension Anti-hypertensives Sleep apnea Pulm following Hypokalemia Replace and recheck in am Obesity I counseled her on diet and exercise to lose weight Medical noncompliance patient left against medical advice last night. I discussed with her importance to stay and complete treatment. Full code status History Interval history: Still shortness of breath chest tightness Hospitalist Physical - Physical exam Narrative exam: Gen: Not in acute distress, lying in bed,obese, on BIPAP HEENT: Normocephalic, atraumatic Neck: supple, no JVD Heart: S1 and S2 reg, no murmurs, rubs or gallop Lungs: Bilateral rhonchi, wheeze Abd: soft, non tender, non distended, normal BS, Ext: No edema, no clubbing, no cyanosis Neuro: Awake, alert, oriented X 3, anxious, no focal neurological signs - Constitutional Vitals: Temp Pulse Resp BP Pulse Ox 98.3 F 86 20 132/74 97 05/10/19 04:24 05/10/19 11:58 05/10/19 11:58 05/10/19 10:44 05/10/19 10:00 General appearance: Present: no acute distress Results - Labs CBC & Chem 7: 05/10/19 06:17 05/10/19 06:17 Labs: Laboratory Last Values WBC 16.8 K/mm3 (4.5-11.0) H 05/10/19 06:17 RBC 4.45 M/mm3 (3.65-5.03) 05/10/19 06:17 Hgb 11.7 gm/dl (10.1-14.3) 05/10/19 06:17 Hct 36.2 % (30.3-42.9) 05/10/19 06:17 MCV 81 fl (79-97) 05/10/19 06:17 MCH 26 pg (28-32) L 05/10/19 06:17 MCHC 32 % (30-34) 05/10/19 06:17 RDW 16.2 % (13.2-15.2) H 05/10/19 06:17 Plt Count 289 K/mm3 (140-440) 05/10/19 06:17 Lymph % (Auto) 7.1 % (13.4-35.0) L 05/10/19 06:17 [place] % (Auto) 3.6 % (0.0-7.3) 05/10/19 06:17 Eos % (Auto) 0.0 % (0.0-4.3) 05/10/19 06:17 Baso % (Auto) 0.4 % (0.0-1.8) 05/10/19 06:17 Lymph # 1.2 K/mm3 (1.2-5.4) 05/10/19 06:17 [place] # 0.6 K/mm3 (0.0-0.8) 05/10/19 06:17 Eos # 0.0 K/mm3 (0.0-0.4) 05/10/19 06:17 Baso # 0.1 K/mm3 (0.0-0.1) 05/10/19 06:17 Seg Neutrophils % 88.9 % (40.0-70.0) H 05/10/19 06:17 Seg Neutrophils # 14.9 K/mm3 (1.8-7.7) H 05/10/19 06:17 POC ABG pH 7.614 (7.35-7.45) H 05/09/19 07:43 POC ABG pCO2 29.6 (35-45) L 05/09/19 07:43 POC ABG pO2 196 (80-105) H 05/09/19 07:43 POC ABG HCO3 30.0 (22-26 mml/L) 05/09/19 07:43 POC ABG Total CO2 31 (23-27mmol/L) 05/09/19 07:43 POC ABG O2 Sat 100 05/09/19 07:43 POC ABG Base Excess 9 ((-2) - (+3)mmol/L) 05/09/19 07:43 FiO2 40 % 05/09/19 07:43 Sodium 141 mmol/L (137-145) 05/10/19 06:17 Potassium 4.3 mmol/L (3.6-5.0) D 05/10/19 06:17 Chloride 99.7 mmol/L (98-107) 05/10/19 06:17 Carbon Dioxide 27 mmol/L (22-30) 05/10/19 06:17 Anion Gap 19 mmol/L 05/10/19 06:17 BUN 22 mg/dL (7-17) H 05/10/19 06:17 Creatinine 0.5 mg/dL (0.7-1.2) L 05/10/19 06:17 Estimated GFR > 60 ml/min 05/10/19 06:17 BUN/Creatinine Ratio 44 % 05/10/19 06:17 Glucose 138 mg/dL (65-100) H 05/10/19 06:17 Calcium 9.3 mg/dL (8.4-10.2) 05/10/19 06:17 Total Bilirubin 0.40 mg/dL (0.1-1.2) 05/09/19 07:31 AST 10 units/L (5-40) 05/09/19 07:31 ALT 7 units/L (7-56) 05/09/19 07:31 Alkaline Phosphatase 66 units/L (35-129) 05/09/19 07:31 Troponin T < 0.010 ng/mL (0.00-0.029) 05/09/19 07:31 NT-Pro-B Natriuret Pep 675.1 pg/mL (0-450) H 05/09/19 07:31 Total Protein 7.4 g/dL (6.3-8.2) 05/09/19 07:31 Albumin 3.9 g/dL (3.9-5) 05/09/19 07:31 Albumin/Globulin Ratio 1.1 % 05/09/19 07:31 Active Medications - Current Medications Current Medications: Generic Name Dose Route Start Last Admin Trade Name Freq PRN Reason Stop Dose Admin Acetaminophen 650 mg 05/09/19 16:09 Tylenol PO Q4H PRN Pain MILD(1-3)/Fever >100.5/CESAR Albuterol 2.5 mg 05/09/19 16:10 05/10/19 11:45 Proventil IH 2.5 mg Q4HRT PRN Administration Shortness Of Breath Albuterol/Ipratropium 1 ampul 05/09/19 16:15 05/10/19 07:59 Duoneb *Not For Prn Use* IH 1 ampul Q6HRT DARIUSZ Administration Aspirin 325 mg 05/09/19 19:00 05/10/19 10:40 Aspirin PO 325 mg QDAY DARIUSZ Administration Diazepam 1 mg 05/09/19 20:00 05/10/19 10:41 Valium PO 1 mg TID DARIUSZ Administration Furosemide 20 mg 05/09/19 18:00 05/10/19 05:59 Lasix IV 20 mg 0600,1800 DARIUSZ Administration Hydrochlorothiazide 12.5 mg 05/10/19 10:00 05/10/19 10:41 Hctz PO 12.5 mg QDAY DARIUSZ Administration Metformin HCl 500 mg 05/09/19 22:00 05/10/19 10:41 Glucophage PO 500 mg BID DARIUSZ Administration Methylprednisolone Sodium Succinate 60 mg 05/09/19 14:00 05/10/19 05:59 Solu-Medrol IV 60 mg Q8HR DARIUSZ Administration Metoprolol Succinate 25 mg 05/09/19 19:00 05/10/19 10:44 Metoprolol Xl PO 25 mg QDAY DARIUSZ Administration Nicotine 14 mg 05/10/19 10:00 05/10/19 10:42 Habitrol TD 14 mg QDAY DARIUSZ Administration Ondansetron HCl 4 mg 05/09/19 16:09 Zofran IV Q8H PRN Nausea And Vomiting Sodium Chloride 10 ml 05/09/19 22:00 05/10/19 10:40 Sodium Chloride Flush Syringe 10 Ml IV 10 ml BID DARIUSZ Administration Sodium Chloride 10 ml 05/09/19 16:09 Sodium Chloride Flush Syringe 10 Ml IV PRN PRN LINE FLUSH Zolpidem Tartrate 5 mg 05/09/19 18:37 05/09/19 22:11 Ambien PO 5 mg QHS PRN Administration Sleep Nutrition/Malnutrition Assess - Dietary Evaluation Nutrition/Malnutrition Findings: Nutrition Notes Start: 05/09/19 13:24 Freq: Status: Active Protocol: Document 05/09/19 13:24 DW (Rec: 05/09/19 13:50 DW [id number]) Co-Sign 05/09/19 13:24 Nutrition Notes 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 Pt stated she has lost 147 lb in 1 year but that was intentional. Pt stated she previously took a diet pill to help her lose wt. Pt stated she does a lot of walking at work and was going to the gym. Pt also stated she does not like the bland taste of diet order and eats what she likes. Burn Absent Trauma Absent GI Symptoms None Minimum of two criteria No physical signs of malnutrition #1 Nutrition Diagnosis No nutrition diagnosis at this time Is patient on ventilator? No Is Patient Ambulatory and/or Out of Bed Yes REE-([facility]-ambulatory/OOB) [ 2589.210 NUTR.[id number]] Kcal/Kg value to use for calculation 16 Approximate Energy Requirements Using 2010 kcal/Kg Calculation Used for Recommendations Kcal/kg Additional Notes PRO needs: 77-96g (0.8-1.0 g/ kg adjBW 96.5kg) Fluid needs: Per MD Nutrition Intervention Change Diet Order: Continue Current Diet Anticipated Discharge Needs: Cardiac Diet Revisit per MD consult or patient Sign Off request:
[2019-05-10] MEDS: ZOLPIDEM 5 MG TAB PO PRN (23:58)
[2019-05-11] MEDS: IPRATROPIUM/ALBUTEROL SULFATE 3 ML AMPUL.NEB IH SCH ×4 (02:21→20:15)
[2019-05-11] MEDS: FUROSEMIDE 20 MG/2 ML INJ IV SCH ×2 (05:46→17:53)
[2019-05-11] MEDS: HEPARIN 5,000 UNIT/1 ML VIAL SUB-Q SCH ×4 (05:47→21:38)
[2019-05-11] MEDS: methylPREDNISolone Sod Succinate 125 MG/2 ML INJ IV SCH ×3 (05:47→21:38)
[2019-05-11 06:45] LABS: HCG Qualitative,Urine Negative (Negative)
[2019-05-11] MEDS ORDERED: REGADENOSON 0.4 MG/5 ML INJ IV ONE (07:13)
[2019-05-11] MEDS: diazePAM 2 MG TAB PO SCH ×3 (08:47→21:37)
[2019-05-11] MEDS: ASPIRIN 325 MG TAB PO SCH (12:00)
[2019-05-11] MEDS: METOPROLOL SUCCINATE XL 25 MG TAB PO SCH (12:01)
[2019-05-11] MEDS: NICOTINE 14 MG/24 HR PATCH TD SCH (12:01)
[2019-05-11] MEDS: hydroCHLOROthiazide 12.5 MG CAP PO SCH (12:01)
[2019-05-11] MEDS: metFORMIN 500 MG TAB PO SCH ×2 (12:03→21:38)
--- NOTE | 2019-05-11 13:04 | Progress Note ---
Assessment and Plan S/p lexiscan MPI stress test today which showed small mild anterior reversible defect, possibly secondary to breast attenuation. Will optimize medical regimen and consider LHC as OP if symptoms persist despite optimal medical therapy. Currently stable cardiac status. Pt may discharge home from cardiology standpoint. Recommend follow up in our office with Dr. Antonio within 1-2 weeks ([phone]). The patient has been seen in conjunction with Dr. Antonio who agrees with the assessment and plan of care. - Patient Problems (1) Dyspnea Current Visit: Yes Status: Acute (2) Recurrent chest pain Current Visit: Yes Status: Chronic (3) COPD (chronic obstructive pulmonary disease) Current Visit: Yes Status: Chronic (4) Chronic respiratory failure Current Visit: Yes Status: Chronic (5) Obesity hypoventilation syndrome Current Visit: Yes Status: Suspected (6) Sleep apnea Current Visit: Yes Status: Chronic (7) HTN (hypertension) Current Visit: Yes Status: Chronic (8) History of CVA (cerebrovascular accident) Current Visit: Yes Status: Chronic (9) Morbid obesity Current Visit: Yes Status: Chronic Subjective Date of service: 05/11/19 Principal diagnosis: cp; copd Interval history: pt for stress test today, feeling better. in SR on tele. Objective Last Vital Signs Temp 97.6 F 05/11/19 08:04 Pulse 70 05/11/19 08:33 Resp 18 05/11/19 08:33 BP 122/79 05/11/19 10:31 Pulse Ox 99 05/11/19 08:44 - Physical Examination General: No Apparent Distress HEENT: Positive: PERRL, Normocephaly, Mucus Membranes Moist Neck: Positive: neck supple, trachea midline Cardiac: Positive: Reg Rate and Rhythm, S1/S2 Lungs: Positive: Decreased Breath Sounds Neuro: Positive: Grossly Intact Abdomen: Negative: Tender Skin: Negative: Rash Musculoskeletal: No Pain Extremities: Absent: edema - Imaging and Cardiology EKG: report reviewed, image reviewed Echo: report reviewed (05/06/2019 showed EF 50-55%, mild to mod LVH, LA severely dilated, grade 2 diastolic dysfunction, mild AR, mod MR, small pericardial effusion not hemodynamically significant.) - EKG Sinus rhythms and dysrhythmias: sinus rhythm
--- NOTE | 2019-05-11 15:23 | Progress Note ---
Assessment and Plan Assessment and plan: Acute on chronic resp failure Admitted to Tele Duoneb Q 6hr Albuterol q 6 prn solumedrol iv Consulted Pulmonology, following Chronic diastolic CHF Re-consulted cardiology, following Chest tightness Stress test mild reversible , as per cardiology Hypertension Anti-hypertensives Sleep apnea Pulm following Hypokalemia Resolved Obesity I counseled her on diet and exercise to lose weight Medical noncompliance patient left against medical advice 05/08/19 and came back 05/09/19 and got re- admitted. I discussed with her importance to stay and complete treatment. Full code status History Interval history: Still shortness of breath Hospitalist Physical - Physical exam Narrative exam: Gen: Not in acute distress, lying in bed,obese, on BIPAP HEENT: Normocephalic, atraumatic Neck: supple, no JVD Heart: S1 and S2 reg, no murmurs, rubs or gallop Lungs: Bilateral rhonchi, wheeze Abd: soft, non tender, non distended, normal BS, Ext: No edema, no clubbing, no cyanosis Neuro: Awake, alert, oriented X 3, anxious, no focal neurological signs - Constitutional Vitals: Temp Pulse Resp BP Pulse Ox 98.4 F 70 18 117/66 91 05/11/19 13:13 05/11/19 13:28 05/11/19 13:13 05/11/19 13:28 05/11/19 13:28 General appearance: Present: no acute distress Results - Labs CBC & Chem 7: 05/10/19 06:17 05/10/19 06:17 Labs: Laboratory Last Values WBC 16.8 K/mm3 (4.5-11.0) H 05/10/19 06:17 RBC 4.45 M/mm3 (3.65-5.03) 05/10/19 06:17 Hgb 11.7 gm/dl (10.1-14.3) 05/10/19 06:17 Hct 36.2 % (30.3-42.9) 05/10/19 06:17 MCV 81 fl (79-97) 05/10/19 06:17 MCH 26 pg (28-32) L 05/10/19 06:17 MCHC 32 % (30-34) 05/10/19 06:17 RDW 16.2 % (13.2-15.2) H 05/10/19 06:17 Plt Count 289 K/mm3 (140-440) 05/10/19 06:17 Lymph % (Auto) 7.1 % (13.4-35.0) L 05/10/19 06:17 [place] % (Auto) 3.6 % (0.0-7.3) 05/10/19 06:17 Eos % (Auto) 0.0 % (0.0-4.3) 05/10/19 06:17 Baso % (Auto) 0.4 % (0.0-1.8) 05/10/19 06:17 Lymph # 1.2 K/mm3 (1.2-5.4) 05/10/19 06:17 [place] # 0.6 K/mm3 (0.0-0.8) 05/10/19 06:17 Eos # 0.0 K/mm3 (0.0-0.4) 05/10/19 06:17 Baso # 0.1 K/mm3 (0.0-0.1) 05/10/19 06:17 Seg Neutrophils % 88.9 % (40.0-70.0) H 05/10/19 06:17 Seg Neutrophils # 14.9 K/mm3 (1.8-7.7) H 05/10/19 06:17 POC ABG pH 7.614 (7.35-7.45) H 05/09/19 07:43 POC ABG pCO2 29.6 (35-45) L 05/09/19 07:43 POC ABG pO2 196 (80-105) H 05/09/19 07:43 POC ABG HCO3 30.0 (22-26 mml/L) 05/09/19 07:43 POC ABG Total CO2 31 (23-27mmol/L) 05/09/19 07:43 POC ABG O2 Sat 100 05/09/19 07:43 POC ABG Base Excess 9 ((-2) - (+3)mmol/L) 05/09/19 07:43 FiO2 40 % 05/09/19 07:43 Sodium 141 mmol/L (137-145) 05/10/19 06:17 Potassium 4.3 mmol/L (3.6-5.0) D 05/10/19 06:17 Chloride 99.7 mmol/L (98-107) 05/10/19 06:17 Carbon Dioxide 27 mmol/L (22-30) 05/10/19 06:17 Anion Gap 19 mmol/L 05/10/19 06:17 BUN 22 mg/dL (7-17) H 05/10/19 06:17 Creatinine 0.5 mg/dL (0.7-1.2) L 05/10/19 06:17 Estimated GFR > 60 ml/min 05/10/19 06:17 BUN/Creatinine Ratio 44 % 05/10/19 06:17 Glucose 138 mg/dL (65-100) H 05/10/19 06:17 Calcium 9.3 mg/dL (8.4-10.2) 05/10/19 06:17 Total Bilirubin 0.40 mg/dL (0.1-1.2) 05/09/19 07:31 AST 10 units/L (5-40) 05/09/19 07:31 ALT 7 units/L (7-56) 05/09/19 07:31 Alkaline Phosphatase 66 units/L (35-129) 05/09/19 07:31 Troponin T < 0.010 ng/mL (0.00-0.029) 05/11/19 05:53 NT-Pro-B Natriuret Pep 675.1 pg/mL (0-450) H 05/09/19 07:31 Total Protein 7.4 g/dL (6.3-8.2) 05/09/19 07:31 Albumin 3.9 g/dL (3.9-5) 05/09/19 07:31 Albumin/Globulin Ratio 1.1 % 05/09/19 07:31 Urine HCG, Qual Negative (Negative) 05/11/19 06:29 Active Medications - Current Medications Current Medications: Generic Name Dose Route Start Last Admin Trade Name Freq PRN Reason Stop Dose Admin Acetaminophen 650 mg 05/09/19 16:09 Tylenol PO Q4H PRN Pain MILD(1-3)/Fever >100.5/CESAR Albuterol 2.5 mg 05/09/19 16:10 05/10/19 11:45 Proventil IH 2.5 mg Q4HRT PRN Administration Shortness Of Breath Albuterol/Ipratropium 1 ampul 05/09/19 16:15 11/07/19 07:45 Duoneb *Not For Prn Use* IH 1 ampul Q6HRT DARIUSZ Administration Aspirin 81 mg 05/12/19 10:00 Baby Aspirin PO QDAY DARIUSZ Diazepam 1 mg 05/09/19 20:00 05/11/19 13:37 Valium PO 1 mg TID DARIUSZ Administration Famotidine 20 mg 05/11/19 22:00 Pepcid PO BID DARIUSZ Furosemide 20 mg 05/09/19 18:00 05/11/19 05:46 Lasix IV 20 mg 0600,1800 DARIUSZ Administration Heparin Sodium (Porcine) 5,000 unit 05/10/19 23:30 05/11/19 13:36 Heparin SUB-Q 5,000 unit Q8HR DARIUSZ Administration Hydrochlorothiazide 12.5 mg 05/10/19 10:00 05/11/19 12:01 Hctz PO 12.5 mg QDAY DARIUSZ Administration Metformin HCl 500 mg 05/09/19 22:00 05/11/19 12:03 Glucophage PO Not Given BID DARIUSZ Methylprednisolone Sodium Succinate 60 mg 05/09/19 14:00 05/11/19 13:36 Solu-Medrol IV 60 mg Q8HR DARIUSZ Administration Metoprolol Succinate 25 mg 05/09/19 19:00 05/11/19 12:01 Metoprolol Xl PO 25 mg QDAY DARIUSZ Administration Nicotine 14 mg 05/10/19 10:00 05/11/19 12:01 Habitrol TD 14 mg QDAY DARIUSZ Administration Ondansetron HCl 4 mg 05/09/19 16:09 05/10/19 15:08 Zofran IV 4 mg Q8H PRN Administration Nausea And Vomiting Sodium Chloride 10 ml 05/09/19 22:00 05/11/19 12:04 Sodium Chloride Flush Syringe 10 Ml IV Not Given BID DARIUSZ Sodium Chloride 10 ml 05/09/19 16:09 Sodium Chloride Flush Syringe 10 Ml IV PRN PRN LINE FLUSH Zolpidem Tartrate 5 mg 05/09/19 18:37 05/10/19 23:58 Ambien PO 5 mg QHS PRN Administration Sleep Nutrition/Malnutrition Assess - Dietary Evaluation Nutrition/Malnutrition Findings: Nutrition Notes Start: 05/09/19 13:24 Freq: Status: Active Protocol: Document 05/09/19 13:24 DW (Rec: 05/09/19 13:50 DW [id number]) Co-Sign 05/09/19 13:24 KH Nutrition Notes 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 Pt stated she has lost 147 lb in 1 year but that was intentional. Pt stated she previously took a diet pill to help her lose wt. Pt stated she does a lot of walking at work and was going to the gym. Pt also stated she does not like the bland taste of diet order and eats what she likes. Burn Absent Trauma Absent GI Symptoms None Minimum of two criteria No physical signs of malnutrition #1 Nutrition Diagnosis No nutrition diagnosis at this time Is patient on ventilator? No Is Patient Ambulatory and/or Out of Bed Yes REE-([facility]-ambulatory/OOB) [ 2589.210 NUTR.MSJOOB] Kcal/Kg value to use for calculation 16 Approximate Energy Requirements Using 2010 kcal/Kg Calculation Used for Recommendations Kcal/kg Additional Notes PRO needs: 77-96g (0.8-1.0 g/ kg adjBW 96.5kg) Fluid needs: Per MD Nutrition Intervention Change Diet Order: Continue Current Diet Anticipated Discharge Needs: Cardiac Diet Revisit per MD consult or patient Sign Off request:
--- NOTE | 2019-05-11 18:02 | Progress Note ---
Assessment and Plan Patient is awake and alert. Patient is on 3 liters of O2 saturation is 91% today. Patient is still complaining of some shortness of breath. BiPAP standby in the room. patient is bipap 14/8, rate of 14. FiO2 40%. Patient has stress test today. Results are pending.. . - Patient Problems (1) COPD with acute exacerbation Current Visit: Yes Status: Acute Plan to address problem: O2 2 litres via nasal canula. BIPAP during night time. Albuterol q 6 hrs continue Soludedrol Continue S/C heparin Continue famotidine (2) CHF exacerbation Current Visit: Yes Status: Acute Qualifiers: Heart failure type: unspecified Qualified Code(s): I50.9 - Heart failure, unspecified Plan to address problem: Patient is on lasix. Management as per cardiology. (3) HTN (hypertension) Current Visit: No Status: Chronic Plan to address problem: Management as per primary care. (4) Morbid obesity Current Visit: No Status: Chronic Plan to address problem: Counselled to loose weight. Diet and exercise. (5) Tobacco use Current Visit: No Status: Chronic Plan to address problem: Patient said she stopped smoking. Subjective Date of service: 05/11/19 Principal diagnosis: cp; copd Interval history: Patient is awake and alert. Patient is on 3 liters of O2 saturation is 91% today. Patient is still complaining of some shortness of breath. BiPAP standby in the room. patient is bipap 14/8, rate of 14. FiO2 40%. Patient has stress test today. Results are pending.. Objective Vital Signs - 12hr 05/11/19 05/11/19 05/11/19 08:04 08:10 08:33 Temperature 97.6 F Pulse Rate 90 Pulse Rate [ 70 Apical] Pulse Rate [ 72 Posterior Bilateral Throughout] Respiratory 18 18 Rate Respiratory 18 Rate [Posterior Bilateral Throughout] Blood Pressure 115/79 O2 Sat by Pulse 100 99 Oximetry 05/11/19 05/11/19 05/11/19 08:44 10:05 10:18 Temperature Pulse Rate Pulse Rate [ Apical] Pulse Rate [ Posterior Bilateral Throughout] Respiratory Rate Respiratory Rate [Posterior Bilateral Throughout] Blood Pressure 121/83 130/75 O2 Sat by Pulse 99 Oximetry 05/11/19 05/11/19 05/11/19 10:19 10:21 10:22 Temperature Pulse Rate Pulse Rate [ Apical] Pulse Rate [ Posterior Bilateral Throughout] Respiratory Rate Respiratory Rate [Posterior Bilateral Throughout] Blood Pressure 122/83 121/88 126/81 O2 Sat by Pulse Oximetry 05/11/19 05/11/19 05/11/19 10:23 10:25 10:27 Temperature Pulse Rate Pulse Rate [ Apical] Pulse Rate [ Posterior Bilateral Throughout] Respiratory Rate Respiratory Rate [Posterior Bilateral Throughout] Blood Pressure 128/77 140/81 122/70 O2 Sat by Pulse Oximetry 05/11/19 05/11/19 05/11/19 10:29 10:30 10:31 Temperature Pulse Rate Pulse Rate [ Apical] Pulse Rate [ Posterior Bilateral Throughout] Respiratory Rate Respiratory Rate [Posterior Bilateral Throughout] Blood Pressure 121/83 124/80 122/79 O2 Sat by Pulse Oximetry 05/11/19 05/11/19 13:13 13:28 Temperature 98.4 F Pulse Rate 86 70 Pulse Rate [ Apical] Pulse Rate [ Posterior Bilateral Throughout] Respiratory 18 Rate Respiratory Rate [Posterior Bilateral Throughout] Blood Pressure 133/83 117/66 O2 Sat by Pulse 98 91 Oximetry Constitutional: no acute distress, alert, other (mobidly obese ) Eyes: non-icteric ENT: oropharynx moist Neck: supple, no JVD Effort: mildly labored Ascultation: Bilateral: diminished breath sounds Cardiovascular: regular rate and rhythm Gastrointestinal: normoactive bowel sounds, soft, non-tender Integumentary: normal Extremities: no cyanosis, no edema Neurologic: normal mental status, non-focal exam, pupils equal and round, CN II- XII normal Psychiatric: anxious CBC and BMP: 05/10/19 06:17 05/10/19 06:17 ABG, PT/INR, D-dimer: ABG POC ABG pH 7.614 (7.35-7.45) H 05/09/19 07:43 POC ABG pCO2 29.6 (35-45) L 05/09/19 07:43 POC ABG pO2 196 (80-105) H 05/09/19 07:43 POC ABG HCO3 30.0 (22-26 mml/L) 05/09/19 07:43 POC ABG Total CO2 31 (23-27mmol/L) 05/09/19 07:43 POC ABG O2 Sat 100 05/09/19 07:43 Abnormal lab findings: Abnormal Labs 05/09/19 05/09/19 05/09/19 07:31 07:31 07:43 WBC 12.7 H MCH 26 L RDW 16.6 H Lymph % (Auto) [place] # 0.9 H Seg Neutrophils % Seg Neutrophils # POC ABG pH 7.614 H POC ABG pCO2 29.6 L POC ABG pO2 196 H Potassium 3.3 L BUN 19 H Creatinine Glucose NT-Pro-B Natriuret Pep 675.1 H 05/10/19 05/10/19 06:17 06:17 WBC 16.8 H MCH 26 L RDW 16.2 H Lymph % (Auto) 7.1 L [place] # Seg Neutrophils % 88.9 H Seg Neutrophils # 14.9 H POC ABG pH POC ABG pCO2 POC ABG pO2 Potassium BUN 22 H Creatinine 0.5 L Glucose 138 H NT-Pro-B Natriuret Pep Chest x-ray: report reviewed (no acute findings), image reviewed
--- NOTE | 2019-05-11 18:37 | XRay Report ---
CHEST 1 VIEW INDICATION / CLINICAL INFORMATION: Shortnes of breath. COMPARISON: None available. FINDINGS: SUPPORT DEVICES: None. HEART / MEDIASTINUM: No significant abnormality. LUNGS / PLEURA: No significant pulmonary or pleural abnormality. No pneumothorax. ADDITIONAL FINDINGS: No significant additional findings. IMPRESSION: 1. No acute findings. Signer Name: Jose Newman MD Signed: 05/11/2019 6:33 PM Workstation Name: [id number]
--- NOTE | 2019-05-11 18:41 | Treadmill Report ---
NUCLEAR CARDIAC IMAGING INDICATION FOR PROCEDURE: Chest pain. Informed consent was obtained. DESCRIPTION OF PROCEDURE: Vasodilator stress was achieved with the intravenous administration of 0.4 mg of Lexiscan per protocol. Rest and stress nuclear cardiac imaging was performed following the intravenous administration of technetium-99m Myoview per protocol. Gated SPECT imaging demonstrates a post-stress left ventricular ejection fraction of 62% with normal wall motion. Myocardial perfusion imaging demonstrates no significant cavity change between stress and rest. The rotating planar images demonstrate breast shadow eclipsing the upper portion of the cardiac image. This is seen in both the stress and rest acquisitions, but appears to be more prominent on the stress study. There is a small mild reversible anterior perfusion defect. There is no significant cavity change between stress and rest. Nuclear cardiac imaging demonstrates grossly normal post-stress left ventricular systolic function. Although, there appears to be a smaller area of anterior ischemia, this defect could be related to breast attenuation artifact. A significant degree of ischemia does not appear to be present. JOB# [id number] ALPESH/JULISSA
[2019-05-11] MEDS: FAMOTIDINE 20 MG TAB PO SCH (21:38)
[2019-05-11] MEDS: ZOLPIDEM 5 MG TAB PO PRN (23:46)
[2019-05-12] MEDS: IPRATROPIUM/ALBUTEROL SULFATE 3 ML AMPUL.NEB IH SCH ×4 (03:05→22:46)
[2019-05-12] MEDS: FUROSEMIDE 20 MG/2 ML INJ IV SCH ×2 (06:26→17:10)
[2019-05-12] MEDS: HEPARIN 5,000 UNIT/1 ML VIAL SUB-Q SCH ×3 (06:26→22:22)
[2019-05-12] MEDS: methylPREDNISolone Sod Succinate 125 MG/2 ML INJ IV SCH ×3 (06:28→22:21)
[2019-05-12] MEDS: diazePAM 2 MG TAB PO SCH ×3 (10:09→22:22)
[2019-05-12] MEDS: FAMOTIDINE 20 MG TAB PO SCH ×2 (10:09→22:22)
[2019-05-12] MEDS: NICOTINE 14 MG/24 HR PATCH TD SCH (10:09)
[2019-05-12] MEDS: metFORMIN 500 MG TAB PO SCH ×2 (10:09→22:22)
[2019-05-12] MEDS: ASPIRIN 81 MG TAB CHEW PO SCH (10:09)
[2019-05-12] MEDS: hydroCHLOROthiazide 12.5 MG CAP PO SCH (10:09)
[2019-05-12] MEDS: METOPROLOL SUCCINATE XL 25 MG TAB PO SCH (10:09)
--- NOTE | 2019-05-12 12:08 | Progress Note ---
Assessment and Plan Assessment and plan: Patient is 43 yo with chronic respiratory failure due to COPD, sleep apnea, CHF, hypertension. She just signed out AMA night of 05/08 and came back morning 05/09/19 because of shortness of breath. Pat was admitted on 05/07/19 for shortness of breath, diagnosed with COPD exacerbation, acute on chronic respi ratory failure. However she left against medical advice last night. Again presents with shortness of breath, no chest pain. She is currently on BIPAP. Re- admitted. Acute on chronic resp failure Admitted to Tele Duoneb Q 6hr Albuterol q 6 prn solumedrol iv Consulted Pulmonology, following Chronic diastolic CHF Re-consulted cardiology, following Chest tightness Stress test mild reversible ischemia For cardiac cath on Wednesday discussed with cardiology NSVT Hypertension Anti-hypertensives Sleep apnea Pulm following Hypokalemia Resolved Obesity I counseled her on diet and exercise to lose weight Medical noncompliance patient left against medical advice 05/08/19 and came back 05/09/19 and got re- admitted. I discussed with her importance to stay and complete treatment. Full code status History Interval history: Still shortness of breath Still having Chest tightness on and off Hospitalist Physical - Physical exam Narrative exam: Gen: Not in acute distress, lying in bed,obese, on BIPAP HEENT: Normocephalic, atraumatic Neck: supple, no JVD Heart: S1 and S2 reg, no murmurs, rubs or gallop Lungs: Bilateral rhonchi, wheeze Abd: soft, non tender, non distended, normal BS, Ext: No edema, no clubbing, no cyanosis Neuro: Awake, alert, oriented X 3, anxious, no focal neurological signs - Constitutional Vitals: Temp Pulse Resp BP Pulse Ox 97.6 F 78 18 95/59 97 05/12/19 11:55 05/12/19 11:55 05/12/19 11:55 05/12/19 11:55 05/12/19 11:55 General appearance: Present: no acute distress Results - Labs CBC & Chem 7: 05/10/19 06:17 05/10/19 06:17 Labs: Laboratory Last Values WBC 16.8 K/mm3 (4.5-11.0) H 05/10/19 06:17 RBC 4.45 M/mm3 (3.65-5.03) 05/10/19 06:17 Hgb 11.7 gm/dl (10.1-14.3) 05/10/19 06:17 Hct 36.2 % (30.3-42.9) 05/10/19 06:17 MCV 81 fl (79-97) 05/10/19 06:17 MCH 26 pg (28-32) L 05/10/19 06:17 MCHC 32 % (30-34) 05/10/19 06:17 RDW 16.2 % (13.2-15.2) H 05/10/19 06:17 Plt Count 289 K/mm3 (140-440) 05/10/19 06:17 Lymph % (Auto) 7.1 % (13.4-35.0) L 05/10/19 06:17 [place] % (Auto) 3.6 % (0.0-7.3) 05/10/19 06:17 Eos % (Auto) 0.0 % (0.0-4.3) 05/10/19 06:17 Baso % (Auto) 0.4 % (0.0-1.8) 05/10/19 06:17 Lymph # 1.2 K/mm3 (1.2-5.4) 05/10/19 06:17 [place] # 0.6 K/mm3 (0.0-0.8) 05/10/19 06:17 Eos # 0.0 K/mm3 (0.0-0.4) 05/10/19 06:17 Baso # 0.1 K/mm3 (0.0-0.1) 05/10/19 06:17 Seg Neutrophils % 88.9 % (40.0-70.0) H 05/10/19 06:17 Seg Neutrophils # 14.9 K/mm3 (1.8-7.7) H 05/10/19 06:17 POC ABG pH 7.614 (7.35-7.45) H 05/09/19 07:43 POC ABG pCO2 29.6 (35-45) L 05/09/19 07:43 POC ABG pO2 196 (80-105) H 05/09/19 07:43 POC ABG HCO3 30.0 (22-26 mml/L) 05/09/19 07:43 POC ABG Total CO2 31 (23-27mmol/L) 05/09/19 07:43 POC ABG O2 Sat 100 05/09/19 07:43 POC ABG Base Excess 9 ((-2) - (+3)mmol/L) 05/09/19 07:43 FiO2 40 % 05/09/19 07:43 Sodium 141 mmol/L (137-145) 05/10/19 06:17 Potassium 4.3 mmol/L (3.6-5.0) D 05/10/19 06:17 Chloride 99.7 mmol/L (98-107) 05/10/19 06:17 Carbon Dioxide 27 mmol/L (22-30) 05/10/19 06:17 Anion Gap 19 mmol/L 05/10/19 06:17 BUN 22 mg/dL (7-17) H 05/10/19 06:17 Creatinine 0.5 mg/dL (0.7-1.2) L 05/10/19 06:17 Estimated GFR > 60 ml/min 05/10/19 06:17 BUN/Creatinine Ratio 44 % 05/10/19 06:17 Glucose 138 mg/dL (65-100) H 05/10/19 06:17 Calcium 9.3 mg/dL (8.4-10.2) 05/10/19 06:17 Total Bilirubin 0.40 mg/dL (0.1-1.2) 05/09/19 07:31 AST 10 units/L (5-40) 05/09/19 07:31 ALT 7 units/L (7-56) 05/09/19 07:31 Alkaline Phosphatase 66 units/L (35-129) 05/09/19 07:31 Troponin T < 0.010 ng/mL (0.00-0.029) 05/11/19 05:53 NT-Pro-B Natriuret Pep 675.1 pg/mL (0-450) H 05/09/19 07:31 Total Protein 7.4 g/dL (6.3-8.2) 05/09/19 07:31 Albumin 3.9 g/dL (3.9-5) 05/09/19 07:31 Albumin/Globulin Ratio 1.1 % 05/09/19 07:31 Urine HCG, Qual Negative (Negative) 05/11/19 06:29 Active Medications - Current Medications Current Medications: Generic Name Dose Route Start Last Admin Trade Name Freq PRN Reason Stop Dose Admin Acetaminophen 650 mg 05/09/19 16:09 Tylenol PO Q4H PRN Pain MILD(1-3)/Fever >100.5/CESAR Albuterol 2.5 mg 05/09/19 16:10 05/10/19 11:45 Proventil IH 2.5 mg Q4HRT PRN Administration Shortness Of Breath Albuterol/Ipratropium 1 ampul 05/09/19 16:15 05/12/19 07:33 Duoneb *Not For Prn Use* IH 1 ampul Q6HRT DARIUSZ Administration Aspirin 81 mg 05/12/19 10:00 05/12/19 10:09 Baby Aspirin PO 81 mg QDAY DARIUSZ Administration Diazepam 1 mg 05/09/19 20:00 05/12/19 10:09 Valium PO 1 mg TID DARIUSZ Administration Famotidine 20 mg 05/11/19 22:00 05/12/19 10:09 Pepcid PO 20 mg BID DARIUSZ Administration Furosemide 20 mg 05/09/19 18:00 05/12/19 06:26 Lasix IV 20 mg 0600,1800 DARIUSZ Administration Heparin Sodium (Porcine) 5,000 unit 05/10/19 23:30 05/12/19 06:26 Heparin SUB-Q 5,000 unit Q8HR DARIUSZ Administration Hydrochlorothiazide 12.5 mg 05/10/19 10:00 05/12/19 10:09 Hctz PO 12.5 mg QDAY DARIUSZ Administration Metformin HCl 500 mg 05/09/19 22:00 05/12/19 10:09 Glucophage PO 500 mg BID DARIUSZ Administration Methylprednisolone Sodium Succinate 60 mg 05/09/19 14:00 05/12/19 06:28 Solu-Medrol IV 60 mg Q8HR DARIUSZ Administration Metoprolol Succinate 25 mg 05/09/19 19:00 05/12/19 10:09 Metoprolol Xl PO 25 mg QDAY DARIUSZ Administration Nicotine 14 mg 05/10/19 10:00 05/12/19 10:09 Habitrol TD 14 mg QDAY DARIUSZ Administration Ondansetron HCl 4 mg 05/09/19 16:09 05/10/19 15:08 Zofran IV 4 mg Q8H PRN Administration Nausea And Vomiting Sodium Chloride 10 ml 05/09/19 22:00 05/12/19 10:09 Sodium Chloride Flush Syringe 10 Ml IV 10 ml BID DARIUSZ Administration Sodium Chloride 10 ml 05/09/19 16:09 Sodium Chloride Flush Syringe 10 Ml IV PRN PRN LINE FLUSH Zolpidem Tartrate 5 mg 05/09/19 18:37 05/11/19 23:46 Ambien PO 5 mg QHS PRN Administration Sleep Nutrition/Malnutrition Assess - Dietary Evaluation Nutrition/Malnutrition Findings: Nutrition Notes Start: 05/09/19 13:24 Freq: Status: Active Protocol: Document 05/09/19 13:24 DW (Rec: 05/09/19 13:50 DW [id number]) Co-Sign 05/09/19 13:24 Nutrition Notes Need for Assessment generated from: beader tender,MST Initial or Follow up Assessment Current Diagnosis COPD,Hypertension,Heart Failure Other Pertinent Diagnosis Asthma Current Diet Cardiac Labs/Tests PRO BNP 675.1 Pertinent Medications Reviewed Height 5 ft 10 in Weight 125.645 kg [place] Body Weight (kg) 68.18 BMI 39.7 Weight change and time frame 34.8% in 10 months Subjective/Other Information RN screen for malnutrition 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 Pt stated she has lost 147 lb in 1 year but that was intentional. Pt stated she previously took a diet pill to help her lose wt. Pt stated she does a lot of walking at work and was going to the gym. Pt also stated she does not like the bland taste of diet order and eats what she likes. Burn Absent Trauma Absent GI Symptoms None Minimum of two criteria No physical signs of malnutrition #1 Nutrition Diagnosis No nutrition diagnosis at this time Is patient on ventilator? No Is Patient Ambulatory and/or Out of Bed Yes REE-([place]-ambulatory/OOB) [ 2589.210 NUTR.MSJOOB] Kcal/Kg value to use for calculation 16 Approximate Energy Requirements Using 2010 kcal/Kg Calculation Used for Recommendations Kcal/kg Additional Notes PRO needs: 77-96g (0.8-1.0 g/ kg adjBW 96.5kg) Fluid needs: Per MD Nutrition Intervention Change Diet Order: Continue Current Diet Anticipated Discharge Needs: Cardiac Diet Revisit per MD consult or patient Sign Off request:
--- NOTE | 2019-05-12 14:06 | Progress Note ---
Assessment and Plan S/p lexiscan MPI stress test yesterday which showed small mild anterior reversible defect, possibly secondary to breast attenuation. Pt continues to c/o SOB, CARTER, chest pressure. She was noted to have 8 beat run NSVT overnight. Coronary angiography recommended for definitive diagnosis. Indications, potential risks and benefits of LHC reviewed with pt and she is agreeable to proceed. Will plan for LHC on Mu AM, 05/15/2019. Cont BB. F/u electrolytes. The patient has been seen in conjunction with Dr. Antonio who agrees with the assess ment and plan of care. - Patient Problems (1) Dyspnea Current Visit: Yes Status: Acute (2) Recurrent chest pain Current Visit: Yes Status: Chronic (3) COPD (chronic obstructive pulmonary disease) Current Visit: Yes Status: Chronic (4) Chronic respiratory failure Current Visit: Yes Status: Chronic (5) Obesity hypoventilation syndrome Current Visit: Yes Status: Suspected (6) Sleep apnea Current Visit: Yes Status: Chronic (7) HTN (hypertension) Current Visit: Yes Status: Chronic (8) History of CVA (cerebrovascular accident) Current Visit: Yes Status: Chronic (9) Morbid obesity Current Visit: Yes Status: Chronic Subjective Date of service: 05/12/19 Principal diagnosis: cp; copd Interval history: pt resting in bed, still with SOB and CARTER. in SR with 8 beat run NSVT noted overnight. Objective Last Vital Signs Temp 97.6 F 05/12/19 11:55 Pulse 78 05/12/19 11:55 Resp 18 05/12/19 11:55 BP 95/59 05/12/19 11:55 Pulse Ox 97 05/12/19 11:55 - Physical Examination General: No Apparent Distress HEENT: Positive: PERRL, Normocephaly, Mucus Membranes Moist Neck: Positive: neck supple, trachea midline Cardiac: Positive: Reg Rate and Rhythm, S1/S2 Lungs: Positive: Decreased Breath Sounds Neuro: Positive: Grossly Intact Abdomen: Negative: Tender Skin: Negative: Rash Musculoskeletal: No Pain Extremities: Absent: edema - Imaging and Cardiology EKG: report reviewed, image reviewed Echo: report reviewed (05/06/2019 showed EF 50-55%, mild to mod LVH, LA severely dilated, grade 2 diastolic dysfunction, mild AR, mod MR, small pericardial effusion not hemodynamically significant.) - EKG Sinus rhythms and dysrhythmias: sinus rhythm
[2019-05-12 15:07] LABS: BUN/Creatinine Ratio 47; Blood Urea Nitrogen 28 mg/dL (7-17); Calcium 9.6 mg/dL (8.4-10.2); Hemolysis Index 10
--- NOTE | 2019-05-12 18:43 | Progress Note ---
Assessment and Plan Patient is awake and alert. Patient is on 3 liters of O2 saturation is 99% today. No acute respiratory distress. BiPAP standby in the room. patient is bipap 14/8, rate of 14. FiO2 40%. Myocardial perfusion scan reported no significant ischemia. . - Patient Problems (1) COPD with acute exacerbation Current Visit: Yes Status: Acute Plan to address problem: O2 2 litres via nasal canula. BIPAP during night time. Albuterol q 6 hrs continue Soludedrol Continue S/C heparin Continue famotidine (2) CHF exacerbation Current Visit: Yes Status: Acute Qualifiers: Heart failure type: unspecified Qualified Code(s): I50.9 - Heart failure, unspecified Plan to address problem: Patient is on lasix. Management as per cardiology. (3) HTN (hypertension) Current Visit: No Status: Chronic Plan to address problem: Management as per primary care. (4) Morbid obesity Current Visit: No Status: Chronic Plan to address problem: Counselled to loose weight. Diet and exercise. (5) Tobacco use Current Visit: No Status: Chronic Plan to address problem: Patient said she stopped smoking. Subjective Date of service: 05/12/19 Principal diagnosis: cp; copd Interval history: Patient is awake and alert. Patient is on 3 liters of O2 saturation is 99% today. No acute respiratory distress. BiPAP standby in the room. patient is bipap 14/8, rate of 14. FiO2 40%. Myocardial perfusion scan reported no significant ischemia. Objective Vital Signs - 12hr 05/12/19 05/12/19 05/12/19 07:35 08:16 08:49 Temperature 97.7 F Pulse Rate 71 Pulse Rate [ 70 Apical] Pulse Rate [ 71 Posterior Bilateral Throughout] Respiratory 18 Rate Respiratory 18 Rate [Posterior Bilateral Throughout] Blood Pressure 99/70 O2 Sat by Pulse 99 99 Oximetry 05/12/19 05/12/19 05/12/19 11:55 15:29 17:30 Temperature 97.6 F 98.1 F Pulse Rate 78 86 Pulse Rate [ Apical] Pulse Rate [ 72 Posterior Bilateral Throughout] Respiratory 18 18 Rate Respiratory 18 Rate [Posterior Bilateral Throughout] Blood Pressure 95/59 157/82 O2 Sat by Pulse 97 99 Oximetry Constitutional: no acute distress, alert, other (mobidly obese ) Eyes: non-icteric ENT: oropharynx moist Neck: supple, no JVD Effort: mildly labored Ascultation: Bilateral: diminished breath sounds Cardiovascular: regular rate and rhythm Gastrointestinal: normoactive bowel sounds, soft, non-tender Integumentary: normal Extremities: no cyanosis, no edema Neurologic: normal mental status, non-focal exam, pupils equal and round, CN II- XII normal Psychiatric: anxious CBC and BMP: 05/10/19 06:17 05/12/19 14:25 ABG, PT/INR, D-dimer: ABG POC ABG pH 7.614 (7.35-7.45) H 05/09/19 07:43 POC ABG pCO2 29.6 (35-45) L 05/09/19 07:43 POC ABG pO2 196 (80-105) H 05/09/19 07:43 POC ABG HCO3 30.0 (22-26 mml/L) 05/09/19 07:43 POC ABG Total CO2 31 (23-27mmol/L) 05/09/19 07:43 POC ABG O2 Sat 100 05/09/19 07:43 Abnormal lab findings: Abnormal Labs 05/09/19 05/09/19 05/09/19 07:31 07:31 07:43 WBC 12.7 H MCH 26 L RDW 16.6 H Lymph % (Auto) [place] # 0.9 H Seg Neutrophils % Seg Neutrophils # POC ABG pH 7.614 H POC ABG pCO2 29.6 L POC ABG pO2 196 H Potassium 3.3 L Chloride BUN 19 H Creatinine Glucose NT-Pro-B Natriuret Pep 675.1 H 05/10/19 05/10/19 05/12/19 06:17 06:17 14:25 WBC 16.8 H MCH 26 L RDW 16.2 H Lymph % (Auto) 7.1 L [place] # Seg Neutrophils % 88.9 H Seg Neutrophils # 14.9 H POC ABG pH POC ABG pCO2 POC ABG pO2 Potassium Chloride 97.4 L BUN 22 H 28 H Creatinine 0.5 L 0.6 L Glucose 138 H 113 H NT-Pro-B Natriuret Pep Chest x-ray: report reviewed (Chest xray reported no acute findings.), image reviewed
[2019-05-13] MEDS: ZOLPIDEM 5 MG TAB PO PRN (01:06)
[2019-05-13] MEDS: IPRATROPIUM/ALBUTEROL SULFATE 3 ML AMPUL.NEB IH SCH ×4 (01:37→21:21)
[2019-05-13] MEDS: HEPARIN 5,000 UNIT/1 ML VIAL SUB-Q SCH ×3 (06:03→21:34)
[2019-05-13] MEDS: methylPREDNISolone Sod Succinate 125 MG/2 ML INJ IV SCH ×3 (06:03→21:28)
[2019-05-13] MEDS: FUROSEMIDE 20 MG/2 ML INJ IV SCH ×2 (06:03→17:49)
[2019-05-13 06:38] LABS: Hematocrit 36.9 % (30.3-42.9); Hemoglobin 11.7 gm/dl (10.1-14.3); Mean Corpuscular HGB Conc 32 % (30-34); Mean Corpuscular Volume 83 fl (79-97); Platelet Count 306 K/mm3 (140-440); Red Blood Count 4.48 M/mm3 (3.65-5.03); Red Cell Distribution Width 16.2 % (13.2-15.2)
[2019-05-13 07:01] LABS: BUN/Creatinine Ratio 43; Blood Urea Nitrogen 30 mg/dL (7-17); Calcium 9.1 mg/dL (8.4-10.2); Hemolysis Index 5
[2019-05-13] MEDS: diazePAM 2 MG TAB PO SCH ×3 (08:53→20:17)
[2019-05-13] MEDS: hydroCHLOROthiazide 12.5 MG CAP PO SCH (09:01)
[2019-05-13] MEDS: FAMOTIDINE 20 MG TAB PO SCH ×2 (09:01→21:28)
[2019-05-13] MEDS: ASPIRIN 81 MG TAB CHEW PO SCH (09:01)
[2019-05-13] MEDS: NICOTINE 14 MG/24 HR PATCH TD SCH (09:02)
[2019-05-13] MEDS: metFORMIN 500 MG TAB PO SCH ×2 (09:02→21:28)
[2019-05-13] MEDS: METOPROLOL SUCCINATE XL 25 MG TAB PO SCH (09:02)
--- NOTE | 2019-05-13 12:46 | Progress Note ---
Assessment and Plan Patient is 43 yo with chronic respiratory failure due to COPD, sleep apnea, CHF, hypertension. She just signed out AMA night of 05/08 and came back morning 05/09/19 because of shortness of breath. Pat was admitted on 05/07/19 for shortness of breath, diagnosed with COPD exacerbation, acute on chronic respiratory failure. However she left against medical advice last night. Again presents with shortness of breath, no chest pain. She is currently on BIPAP. Re- admitted. Acute on chronic resp failure Admitted to Tele Duoneb Q 6hr Albuterol q 6 prn solumedrol iv Consulted Pulmonology, following Acute on Chronic diastolic CHF Re-consulted cardiology, following Chest tightness Stress test mild reversible ischemia For cardiac cath on 05/15/19 NSVT Hypertension Anti-hypertensives Sleep apnea Pulm following Hypokalemia Resolved Obesity I counseled her on diet and exercise to lose weight Medical noncompliance patient left against medical advice 05/08/19 and came back 05/09/19 and got re- admitted. I discussed with her importance to stay and complete treatment. Full code status Subjective Date of service: 05/13/19 Principal diagnosis: cp; copd, acute chronic diastolic heart failure Interval history: Still having shortness of breath. Denies any more chest pain Objective - Exam Narrative Exam: Constitutional: Well-nourished well-developed. In no distress Head: Normocephalic atraumatic Eyes: Pupils are equal round and reactive to light Nose: No enlarged turbinates, no septal deviation. Mouth: Moist mucous membranes. Neck: Supple no thyromegaly. No bruit. No JVD Heart: Regular rate and rhythm, S1-S2 normal. No rubs murmurs or gallop Lungs: Clear to auscultation bilaterally. no rales or rhonchi Abdomen: Soft, nontender. Bowel sound are present. Extremities: No edema, no cyanosis, no clubbing. Neuro: Alert oriented Oriented x3. No focal sensory or motor deficit. Skin: No rashes or hyperpigmented spots Musculoskeletal system: No joint pain or swelling Hematological: No petechia or subcutanous hemorrhages. Immunological: No multiple septic spots on the skin Lymphatic: No generalized lymphadenopathy Psychiatry: Euthymic. Calm. - Constitutional Vitals: Vital Signs - 12hr 05/13/19 05/13/1905/13/19 04:39 07:40 07:44 Temperature 97.3 F L 97.0 F L Pulse Rate 75 71 66 Respiratory 18 20 Rate Blood Pressure 123/61 136/82 O2 Sat by Pulse 100 100 Oximetry 05/13/19 05/13/19 05/13/19 09:02 09:57 11:25 Temperature 97.4 F L Pulse Rate 66 83 Respiratory 18 20 Rate Blood Pressure 136/82 114/56 O2 Sat by Pulse 98 98 Oximetry - Labs CBC & Chem 7: 05/13/19 05:31 05/13/19 05:31 Labs: Abnormal lab results 05/12/19 05/13/19 05/13/19 Range/Units 14:25 05:31 05:31 WBC 13.4 H (4.5-11.0) K/mm3 MCH 26 L (28-32) pg RDW 16.2 H (13.2-15.2) % Chloride 97.4 L 97.0 L (98-107) mmol/L Carbon Dioxide 33 H (22-30) mmol/L BUN 28 H 30 H (7-17) mg/dL Creatinine 0.6 L (0.7-1.2) mg/dL Glucose 113 H 134 H (65-100) mg/dL
--- NOTE | 2019-05-13 20:51 | Progress Note ---
Assessment and Plan Acute COPD exacerbation Acute on chronic hypoxic respiratory failure due to COPD exacerbation. Morbid Obesity Nicotine dependence/Tobacco abuse disorder Hypertension Leukocytosis..possibly secondary to steroids - humidify BIPAP machine to improve compliance re: dryness - Continue with supplemental oxygen to keep O2 sats>88% - tentatively for LHCath procedure - Continue systemic steroids with taper - Continue bronchodilators, short acting and long acting - sleep clinic f/up at discharge - Continue with nicotine withdrawal precautions - Continue to encourage smoking cessation - Anxiety management - Weight loss and lifestyle modifications also discussed - continue other care per attending / other consultants .... re-evaluate in am & prn Subjective Date of service: 05/13/19 Principal diagnosis: AE-COPD exacerbation; Ac on ch hypoxemic resp failure; Morbid Obesity Interval history: Patient is seen today for: Acute COPD exacerbation; Ac on ch hypoxemic respiratory failure; Morbid Obesity; Nicotine dependence/Tobacco abuse disorder; Hypertension Seen and examined at bedside; 24hour events reviewed; nursing and respiratory care staff consulted; no adverse overnight events reported to me; resting peacefully in bed; remains on supplemental oxygen; ACS work-up ongoing; complains of severe oropharyngeal dryness with BIPAP; No N/V/F/C Objective Vital Signs - 12hr 05/13/19 05/13/19 05/13/19 09:02 09:57 10:00 Temperature Pulse Rate 66 Pulse Rate [ Posterior Bilateral Throughout] Respiratory 18 Rate Respiratory Rate [Posterior Bilateral Throughout] Blood Pressure 136/82 O2 Sat by Pulse 98 98 Oximetry 05/13/19 05/13/19 05/13/19 11:25 14:46 17:52 Temperature 97.4 F L Pulse Rate 83 Pulse Rate [ 83 Posterior Bilateral Throughout] Respiratory 20 Rate Respiratory 18 Rate [Posterior Bilateral Throughout] Blood Pressure 114/56 115/53 O2 Sat by Pulse 98 Oximetry 05/13/19 20:10 Temperature 98.1 F Pulse Rate 88 Pulse Rate [ Posterior Bilateral Throughout] Respiratory 20 Rate Respiratory Rate [Posterior Bilateral Throughout] Blood Pressure 129/72 O2 Sat by Pulse 98 Oximetry Constitutional: no acute distress, alert, other (middle aged mobidly obese female with mildly increased resp effort at rest) Eyes: non-icteric ENT: oropharynx moist, other (+ large neck circumference) Neck: supple, no JVD Effort: mildly labored Ascultation: Bilateral: clear, diminished breath sounds Percussion: Bilateral: not dull Cardiovascular: regular rate and rhythm Gastrointestinal: normoactive bowel sounds, soft, non-tender, non-distended Integumentary: normal Extremities: no cyanosis, no edema, pulses normal, no ischemia or petechiae Neurologic: normal mental status, non-focal exam, pupils equal and round, CN II- XII normal, motor strength normal and Psychiatric: mood appropriate, affect normal CBC and BMP: 05/13/19 05:31 05/13/19 05:31 ABG, PT/INR, D-dimer: ABG POC ABG pH 7.614 (7.35-7.45) H 05/09/19 07:43 POC ABG pCO2 29.6 (35-45) L 05/09/19 07:43 POC ABG pO2 196 (80-105) H 05/09/19 07:43 POC ABG HCO3 30.0 (22-26 mml/L) 05/09/19 07:43 POC ABG Total CO2 31 (23-27mmol/L) 05/09/19 07:43 POC ABG O2 Sat 100 05/09/19 07:43 Abnormal lab findings: Abnormal Labs 05/09/19 05/09/19 05/09/19 07:31 07:31 07:43 WBC 12.7 H MCH 26 L RDW 16.6 H Lymph % (Auto) [place] # 0.9 H Seg Neutrophils % Seg Neutrophils # POC ABG pH 7.614 H POC ABG pCO2 29.6 L POC ABG pO2 196 H Potassium 3.3 L Chloride Carbon Dioxide BUN 19 H Creatinine Glucose NT-Pro-B Natriuret Pep 675.1 H 05/10/19 05/10/19 05/12/19 06:17 06:17 14:25 WBC 16.8 H MCH 26 L RDW 16.2 H Lymph % (Auto) 7.1 L [place] # Seg Neutrophils % 88.9 H Seg Neutrophils # 14.9 H POC ABG pH POC ABG pCO2 POC ABG pO2 Potassium Chloride 97.4 L Carbon Dioxide BUN 22 H 28 H Creatinine 0.5 L 0.6 L Glucose 138 H 113 H NT-Pro-B Natriuret Pep 05/13/19 05/13/19 05:31 05:31 WBC 13.4 H MCH 26 L RDW 16.2 H Lymph % (Auto) [place] # Seg Neutrophils % Seg Neutrophils # POC ABG pH POC ABG pCO2 POC ABG pO2 Potassium Chloride 97.0 L Carbon Dioxide 33 H BUN 30 H Creatinine Glucose 134 H NT-Pro-B Natriuret Pep Chest x-ray: image reviewed (no acute process) Allied health notes reviewed: nursing
[2019-05-14] MEDS: ZOLPIDEM 5 MG TAB PO PRN (01:21)
[2019-05-14] MEDS: IPRATROPIUM/ALBUTEROL SULFATE 3 ML AMPUL.NEB IH SCH ×4 (03:14→21:27)
[2019-05-14] MEDS: methylPREDNISolone Sod Succinate 125 MG/2 ML INJ IV SCH ×2 (05:44→13:48)
[2019-05-14] MEDS: FUROSEMIDE 20 MG/2 ML INJ IV SCH ×2 (05:45→17:49)
[2019-05-14] MEDS: HEPARIN 5,000 UNIT/1 ML VIAL SUB-Q SCH ×3 (05:45→21:45)
[2019-05-14] MEDS: diazePAM 2 MG TAB PO SCH ×3 (08:18→20:50)
[2019-05-14] MEDS: metFORMIN 500 MG TAB PO SCH ×2 (09:34→21:45)
[2019-05-14] MEDS: hydroCHLOROthiazide 12.5 MG CAP PO SCH (09:34)
[2019-05-14] MEDS: METOPROLOL SUCCINATE XL 25 MG TAB PO SCH (09:34)
[2019-05-14] MEDS: NICOTINE 14 MG/24 HR PATCH TD SCH (09:34)
[2019-05-14] MEDS: ASPIRIN 81 MG TAB CHEW PO SCH (09:34)
[2019-05-14] MEDS: FAMOTIDINE 20 MG TAB PO SCH ×2 (09:34→21:45)
--- NOTE | 2019-05-14 18:02 | Progress Note ---
Assessment and Plan Acute COPD exacerbation Acute on chronic hypoxic respiratory failure due to COPD exacerbation. Morbid Obesity Nicotine dependence/Tobacco abuse disorder Hypertension Leukocytosis..possibly secondary to steroids - continue to humidify BIPAP machine to improve compliance re: dryness - Continue with supplemental oxygen to keep O2 sats>88% - tentatively for LHCath procedure in am - Continue systemic steroids with taper (tapered to 40 mg IV q12h) - Continue bronchodilators, short acting and long acting - sleep clinic f/up at discharge - Continue with nicotine withdrawal precautions - Continue to encourage smoking cessation - Anxiety management - Weight loss and lifestyle modifications also discussed - continue other care per attending / other consultants .... re-evaluate in am & prn Subjective Date of service: 05/14/19 Principal diagnosis: AE-COPD exacerbation; Ac on ch hypoxemic resp failure; Morbid Obesity Interval history: Patient is seen today for: Acute COPD exacerbation; Ac on ch hypoxemic respiratory failure; Morbid Obesity; Nicotine dependence/Tobacco abuse disorder; Hypertension Seen and examined at bedside; 24hour events reviewed; nursing and respiratory care staff consulted; no adverse overnight events reported to me; resting peacefully in bed; complains of bladder fullness, no dysuria; BIPAP tolerated better with humidification; No N/V/F/C Objective Vital Signs - 12hr 05/14/19 05/14/19 05/14/19 08:27 09:00 09:34 Temperature 98.3 F Pulse Rate 77 Pulse Rate [ 108 H Anterior Bilateral] Respiratory 18 Rate Respiratory 18 Rate [Anterior Bilateral] Blood Pressure 134/80 134/80 O2 Sat by Pulse Oximetry 05/14/19 05/14/19 10:00 14:01 Temperature Pulse Rate 84 Pulse Rate [ 83 Anterior Bilateral] Respiratory Rate Respiratory 18 Rate [Anterior Bilateral] Blood Pressure O2 Sat by Pulse 100 Oximetry Constitutional: no acute distress, alert, other (middle aged mobidly obese female with mildly increased resp effort at rest) Eyes: non-icteric ENT: oropharynx moist, other (+ large neck circumference) Neck: supple, no JVD, other (+ large neck circumference) Effort: mildly labored Ascultation: Bilateral: clear, diminished breath sounds Percussion: Bilateral: not dull Cardiovascular: regular rate and rhythm Gastrointestinal: normoactive bowel sounds, soft, non-tender, non-distended Integumentary: normal Extremities: no cyanosis, no edema, pulses normal, no ischemia or petechiae Neurologic: normal mental status, non-focal exam, pupils equal and round, CN II- XII normal, motor strength normal and Psychiatric: mood appropriate, affect normal CBC and BMP: 05/15/19 06:26 05/15/19 06:26 ABG, PT/INR, D-dimer: ABG POC ABG pH 7.614 (7.35-7.45) H 05/09/19 07:43 POC ABG pCO2 29.6 (35-45) L 05/09/19 07:43 POC ABG pO2 196 (80-105) H 05/09/19 07:43 POC ABG HCO3 30.0 (22-26 mml/L) 05/09/19 07:43 POC ABG Total CO2 31 (23-27mmol/L) 05/09/19 07:43 POC ABG O2 Sat 100 05/09/19 07:43 Abnormal lab findings: Abnormal Labs 05/09/19 05/09/19 05/09/19 07:31 07:31 07:43 WBC 12.7 H MCH 26 L RDW 16.6 H Lymph % (Auto) [place] # 0.9 H Seg Neutrophils % Seg Neutrophils # POC ABG pH 7.614 H POC ABG pCO2 29.6 L POC ABG pO2 196 H Potassium 3.3 L Chloride Carbon Dioxide BUN 19 H Creatinine Glucose NT-Pro-B Natriuret Pep 675.1 H 05/10/19 05/10/19 05/12/19 06:17 06:17 14:25 WBC 16.8 H MCH 26 L RDW 16.2 H Lymph % (Auto) 7.1 L [place] # Seg Neutrophils % 88.9 H Seg Neutrophils # 14.9 H POC ABG pH POC ABG pCO2 POC ABG pO2 Potassium Chloride 97.4 L Carbon Dioxide BUN 22 H 28 H Creatinine 0.5 L 0.6 L Glucose 138 H 113 H NT-Pro-B Natriuret Pep 05/13/19 05/13/19 05:31 05:31 WBC 13.4 H MCH 26 L RDW 16.2 H Lymph % (Auto) [place] # Seg Neutrophils % Seg Neutrophils # POC ABG pH POC ABG pCO2 POC ABG pO2 Potassium Chloride 97.0 L Carbon Dioxide 33 H BUN 30 H Creatinine Glucose 134 H NT-Pro-B Natriuret Pep Chest x-ray: image reviewed Allied health notes reviewed: nursing
[2019-05-14] MEDS ORDERED: methylPREDNISolone Sod Succinate 125 MG/2 ML INJ IV SCH (19:00)
[2019-05-14] MEDS: methylPREDNISolone Sod Succinate 40 MG/1 ML INJ IV SCH (19:45)
--- NOTE | 2019-05-14 20:42 | Progress Note ---
Assessment and Plan Patient is 43 yo with chronic respiratory failure due to COPD, sleep apnea, CHF, hypertension. She just signed out AMA night of 05/08 and came back morning 05/09/19 because of shortness of breath. Pat was admitted on 05/07/19 for shortness of breath, diagnosed with COPD exacerbation, acute on chronic respiratory failure. However she left against medical advice last night. Again presents with shortness of breath, no chest pain. She is currently on BIPAP. Re- admitted. Acute on chronic resp failure Duoneb Q 6hr Albuterol q 6 prn solumedrol iv Consulted Pulmonology, following Acute on Chronic diastolic CHF For [facility] on 05/15/2019 Chest tightness Stress test mild reversible ischemia For cardiac cath on 05/15/19 NSVT Hypertension Anti-hypertensives Sleep apnea Pulm following Hypokalemia Resolved Obesity I counseled her on diet and exercise to lose weight Medical noncompliance patient left against medical advice 09/10/18 and 05/08/19 but came back 05/09/19 and got re-admitted. I discussed with her importance to stay and complete treatment. Full code status: Full code Subjective Date of service: 05/14/19 Principal diagnosis: AE-COPD exacerbation; Ac on ch hypoxemic resp failure; Morbid Obesity Interval history: Still having shortness of breath. Denies any more chest pain. Objective - Exam Narrative Exam: Constitutional: Well-nourished well-developed. In no distress Head: Normocephalic atraumatic Eyes: Pupils are equal round and reactive to light Nose: No enlarged turbinates, no septal deviation. Mouth: Moist mucous membranes. Neck: Supple no thyromegaly. No bruit. No JVD Heart: Regular rate and rhythm, S1-S2 normal. No rubs murmurs or gallop Lungs: Clear to auscultation bilaterally. no rales or rhonchi Abdomen: Soft, nontender. Bowel sound are present. Extremities: No edema, no cyanosis, no clubbing. Neuro: Alert oriented Oriented x3. No focal sensory or motor deficit. Skin: No rashes or hyperpigmented spots Musculoskeletal system: No joint pain or swelling Hematological: No petechia or subcutanous hemorrhages. Immunological: No multiple septic spots on the skin Lymphatic: No generalized lymphadenopathy Psychiatry: Euthymic. Calm. - Constitutional Vitals: Vital Signs - 12hr 05/14/19 05/14/19 05/14/19 09:00 09:34 10:00 Pulse Rate 77 84 Pulse Rate [ 108 H Anterior Bilateral] Respiratory 18 Rate [Anterior Bilateral] Blood Pressure 134/80 O2 Sat by Pulse 100 Oximetry 05/14/19 14:01 Pulse Rate Pulse Rate [ 83 Anterior Bilateral] Respiratory 18 Rate [Anterior Bilateral] Blood Pressure O2 Sat by Pulse Oximetry - Labs CBC & Chem 7: 05/13/19 05:31 05/13/19 05:31
[2019-05-15] MEDS: ZOLPIDEM 5 MG TAB PO PRN ×2 (00:43→22:32)
[2019-05-15 06:37] LABS: Basophils % (Auto) 0.3 % (0.0-1.8); Eosinophils % (Auto) 0.1 % (0.0-4.3); Hematocrit 38.5 % (30.3-42.9); Hemoglobin 12.2 gm/dl (10.1-14.3); Mean Corpuscular HGB Conc 32 % (30-34); Mean Corpuscular Volume 83 fl (79-97); Monocytes # (Auto) 0.9 K/mm3 (0.0-0.8); Monocytes % (Auto) 5.6 % (0.0-7.3); Platelet Count 336 K/mm3 (140-440); Red Blood Count 4.65 M/mm3 (3.65-5.03); Red Cell Distribution Width 16.1 % (13.2-15.2)
[2019-05-15 06:48] LABS: INR 0.89 (0.87-1.13)
[2019-05-15 06:52] LABS: BUN/Creatinine Ratio 55; Blood Urea Nitrogen 33 mg/dL (7-17); Calcium 9.6 mg/dL (8.4-10.2); Hemolysis Index 15
[2019-05-15] MEDS ORDERED: SODIUM CHLORIDE 0.9% 500 ML 500 ML ONE (07:11)
[2019-05-15] MEDS ORDERED: ASPIRIN 81 MG TAB CHEW ONE (07:15)
[2019-05-15] MEDS: HEPARIN 5,000 UNIT/1 ML VIAL SUB-Q SCH ×3 (07:15→22:31)
[2019-05-15] MEDS: FUROSEMIDE 20 MG/2 ML INJ IV SCH ×2 (07:15→17:11)
[2019-05-15] MEDS: ASPIRIN 81 MG TAB CHEW PO SCH ×2 (07:16→10:27)
[2019-05-15] MEDS ORDERED: diphenhydrAMINE 50 MG/ML VIAL IV NR (07:30)
[2019-05-15] MEDS ORDERED: diphenhydrAMINE 50 MG/ML VIAL ONE (07:45)
[2019-05-15] MEDS: methylPREDNISolone Sod Succinate 40 MG/1 ML INJ IV SCH ×2 (08:00→19:30)
[2019-05-15] MEDS ORDERED: SODIUM CHLORIDE 0.9% 500 ML 500 ML IV SCH (08:00)
[2019-05-15] MEDS: diazePAM 2 MG TAB PO SCH ×3 (08:24→22:32)
[2019-05-15] MEDS ORDERED: HEPARIN/NS 5000 UNIT/500ML 1,000 ML IR ONE (08:36)
[2019-05-15] MEDS ORDERED: HEPARIN 10,000 UNITS/10 ML VIAL ONE (08:36)
[2019-05-15] MEDS ORDERED: MIDAZOLAM 2 MG/2 ML INJ ONE (08:37)
[2019-05-15] MEDS ORDERED: fentaNYL 100 MCG/2 ML INJ ONE (08:37)
[2019-05-15] MEDS ORDERED: LIDOCAINE (2%) 20 MG/1 ML VIAL 20 ML MDV INFILTRATI ONE (08:37)
[2019-05-15] MEDS ORDERED: VERAPAMIL 5 MG/2 ML INJ ONE (08:37)
[2019-05-15] MEDS ORDERED: NITROGLYCERIN SYRINGE 3 ML ONE (08:38)
--- NOTE | 2019-05-15 09:55 | Progress Note ---
Assessment and Plan [facility] via [facility] this am: 1. Normal coronaries 2. Normal LV function 3. No as 4. Normal root aortogram w/o evidence of dissection/ulcer/AI Stable cv status. No further NSVT noted. Cont BB No evidence of allergic reaction to dye - Patient Problems (1) COPD with acute exacerbation Current Visit: Yes Status: Acute (2) On home oxygen therapy Current Visit: Yes Status: Acute (3) Acute asthmatic bronchitis Current Visit: No Status: Acute (4) HTN (hypertension) Current Visit: No Status: Chronic (5) History of CVA (cerebrovascular accident) Current Visit: No Status: Chronic (6) History of heart failure Current Visit: No Status: Chronic (7) Morbid obesity Current Visit: No Status: Chronic (8) Tobacco use Current Visit: No Status: Chronic Plan to address problem: smoking cessation d/w pt for > 5 min. Subjective Principal diagnosis: AE-COPD exacerbation; Ac on ch hypoxemic resp failure; Morbid Obesity Interval history: no complaints overnight Objective Vital Signs Temp Pulse Pulse Pulse Resp Resp BP 05/15/19 03:37 98.2 F 05/15/19 03:21 122.0 F H 75 16 127/68 05/15/19 00:35 97.8 F 87 16 144/86 05/14/19 22:48 05/14/19 22:00 87 87 05/14/19 21:28 95 H 19 05/14/19 17:10 99.4 F 79 18 140/73 05/14/19 14:01 83 18 05/14/19 10:00 84 Pulse Ox 05/15/19 03:37 05/15/19 03:21 93 05/15/19 00:35 100 05/14/19 22:48 95 05/14/19 22:00 98 05/14/19 21:28 95 05/14/19 17:10 98 05/14/19 14:01 05/14/19 10:00 100 - Physical Examination General: No Apparent Distress HEENT: Positive: PERRL, Normocephaly, Mucus Membranes Moist Neck: Positive: neck supple, trachea midline Neuro: Positive: Grossly Intact Abdomen: Negative: Tender Skin: Negative: Rash Musculoskeletal: No Pain Extremities: Absent: edema - Labs and Meds Coagulation 05/15/19 Range/Units 06:26 PT 12.0 L (12.2-14.9) Sec. INR 0.89 (0.87-1.13) CBC 05/15/19 Range/Units 06:26 WBC 16.3 H (4.5-11.0) K/mm3 RBC 4.65 (3.65-5.03) M/mm3 Hgb 12.2 (10.1-14.3) gm/dl Hct 38.5 (30.3-42.9) % Plt Count 336 (140-440) K/mm3 Lymph # 2.0 (1.2-5.4) K/mm3 [place] # 0.9 H (0.0-0.8) K/mm3 Eos # 0.0 (0.0-0.4) K/mm3 Baso # 0.0 (0.0-0.1) K/mm3 Comprehensive Metabolic Panel 05/15/19 Range/Units 06:26 Sodium 141 (137-145) mmol/L Potassium 4.6 (3.6-5.0) mmol/L Chloride 95.9 L (98-107) mmol/L Carbon Dioxide 33 H (22-30) mmol/L BUN 33 H (7-17) mg/dL Creatinine 0.6 L (0.7-1.2) mg/dL Glucose 109 H (65-100) mg/dL Calcium 9.6 (8.4-10.2) mg/dL - Imaging and Cardiology EKG: report reviewed, image reviewed Echo: report reviewed (05/06/2019 showed EF 50-55%, mild to mod LVH, LA severely dilated, grade 2 diastolic dysfunction, mild AR, mod MR, small pericardial effu gaurav not hemodynamically significant.) - EKG Sinus rhythms and dysrhythmias: sinus rhythm - Allied health notes Allied health notes reviewed: nursing
--- NOTE | 2019-05-15 10:18 | Cardiac Catherization Report ---
REFERRING PHYSICIAN: Dr. Steven. INDICATION FOR PROCEDURE: The patient is a pleasant 43-year-old female with multiple risk factors, presents with chest pain, abnormal stress test, referred for left heart catheterization, also has uncontrolled hypertension. Risks, benefits and alternatives discussed prior to obtaining informed consent. It should be noted that she has a history of anaphylactic shock with diet. She has been appropriately premedicated with steroids, H1 and H2 blockade. PROCEDURE IN DETAIL: The patient was brought to the catheterization lab in a postabsorptive state, prepped and draped in sterile fashion. Bernabe's test in right hand was normal. A 2 mL of 2% lidocaine used to anesthetize the right wrist. A standard 6-Indian sheath used to cannulate the right radial artery via modified Seldinger technique. All exchanges performed to exchange a J-tip guidewire. JL3.5 catheter was used to engage the left main. No dampening or ventricularization. Cineangiography performed in multiple projections. JR4 catheter was used to cross the aortic valve under fluoroscopic guidance. Left ventriculography performed in 30 [place] and 30 [place] projections via hand injections, catheter flushed. Manual pullback performed with continuous pressure monitoring. Catheter was used to engage the right coronary. No dampening or ventricularization. Cineangiography performed in all projections. Due to recurrent chest pain, hypertension and normal coronaries, we used a pigtail catheter for a root aortogram in the [place] projection with power injector. Next, catheter removed from the body of wire, sheath removed. Manual pressure used to achieve hemostasis. DATA: Aortic pressure is 140/80, LV pressure is 140, LVEDP of approximately 20 mmHg. Left ventriculography revealed normal systolic performance with estimated ejection fraction of 50-55%. No evidence of aortic stenosis, high normal LVEDP. CORONARY ANATOMY: This is a right dominant system. Right coronary is a moderate sized vessel, courses AV groove, distally bifurcates in the posterior and posterolateral branches. No discrete stenosis noted. Left main without significant disease, bifurcates left anterior descending and left circumflex. Left circumflex, moderate sized vessel, courses AV groove. No significant disease. LAD is a moderate sized vessel, courses anterior intergroove, wraps around the apex, no significant disease in LAD or diagonal system. Root aortogram reveals normal contour, normal great vessel anatomy, no evidence of aortic insufficiency. No evidence of dissection. I directly supervised the administration of moderate sedation from 9:26 a.m. to 9:50 a.m. with fentanyl and Versed. CONCLUSIONS: 1. No angiographic evidence of significant epicardial coronary disease in this right dominant system. 2. Normal left ventricular systolic performance, estimated ejection fraction of 50-55%. 3. No evidence of aortic stenosis. 4. High normal LVEDP. 5. Normal root aortography without evidence of aortic dissection, penetrating aortic ulcer or aortic insufficiency. At this point, the patient is clinically stable, asymptomatic. Standard radial care. Results of procedure explained to the patient at length. All questions and concerns were addressed. It should be noted there is no evidence of allergic reaction to dye. She will be monitored closely. Stable overall cardiac status. JOB# [id number] SBM/NTS
[2019-05-15] MEDS: METOPROLOL SUCCINATE XL 25 MG TAB PO SCH (11:03)
[2019-05-15] MEDS: FAMOTIDINE 20 MG TAB PO SCH ×2 (11:03→22:32)
[2019-05-15] MEDS: hydroCHLOROthiazide 12.5 MG CAP PO SCH (11:03)
[2019-05-15] MEDS: metFORMIN 500 MG TAB PO SCH ×3 (11:04→22:32)
[2019-05-15] MEDS: NICOTINE 14 MG/24 HR PATCH TD SCH (11:04)
[2019-05-15] MEDS ORDERED: PNEUMOC 13-VAL CONJ-DIP CRM/PF 0.5 ML IM ONE (12:00)
--- NOTE | 2019-05-15 13:03 | Progress Note ---
Assessment and Plan Patient is 43 yo with chronic respiratory failure due to COPD, sleep apnea, CHF, hypertension. She just signed out AMA night of 05/08 and came back morning 05/09/19 because of shortness of breath. Pat was admitted on 05/07/19 for shortness of breath, diagnosed with COPD exacerbation, acute on chronic respiratory failure. However she left against medical advice last night. Again presents with shortness of breath, no chest pain. She is currently on BIPAP. Re- admitted. Acute on chronic resp failure Duoneb Q 6hr Albuterol q 6 prn Taper solumedrol iv Consulted Pulmonology, following Acute on Chronic diastolic CHF LHC on 05/15/2019 showed normal coronaries Chest tightness Stress test mild reversible ischemia Showed normal coronaries Hypertension Anti-hypertensives Sleep apnea Pulm following Hypokalemia Resolved Obesity I counseled her on diet and exercise to lose weight Medical noncompliance patient left against medical advice 09/10/18 and 05/08/19 but came back 05/09/19 and got re-admitted. I discussed with her importance to stay and complete treatment. Full code status: Full code Subjective Date of service: 05/15/19 Principal diagnosis: AE-COPD exacerbation; Ac on ch hypoxemic resp failure; Morbid Obesity Interval history: Still having shortness of breath. Denies any more chest pain. PND Objective - Exam Narrative Exam: Constitutional: Well-nourished well-developed. On BiPAP. In no distress Head: Normocephalic atraumatic Eyes: Pupils are equal round and reactive to light Nose: No enlarged turbinates, no septal deviation. Mouth: Moist mucous membranes. Neck: Supple no thyromegaly. No bruit. No JVD Heart: Regular rate and rhythm, S1-S2 normal. No rubs murmurs or gallop Lungs: Decreased breath sounds bilaterally. no rales or rhonchi Abdomen: Soft, nontender. Bowel sound are present. Extremities: No edema, no cyanosis, no clubbing. Neuro: Alert oriented Oriented x3. No focal sensory or motor deficit. Skin: No rashes or hyperpigmented spots Musculoskeletal system: No joint pain or swelling Hematological: No petechia or subcutanous hemorrhages. Immunological: No multiple septic spots on the skin Lymphatic: No generalized lymphadenopathy Psychiatry: Euthymic. Calm. - Constitutional Vitals: Vital Signs - 12hr 11/11/19 11/11/19 11/11/19 03:21 03:37 06:55 Temperature 122.0 F H 98.2 F Pulse Rate 75 79 Pulse Rate [ From Monitor] Respiratory 16 Rate Blood Pressure 127/68 O2 Sat by Pulse 93 Oximetry 05/15/19 05/15/19 11:03 12:48 Temperature Pulse Rate 78 Pulse Rate [ 88 From Monitor] Respiratory Rate Blood Pressure 142/87 O2 Sat by Pulse 98 Oximetry - Labs CBC & Chem 7: 05/15/19 06:26 05/15/19 06:26 Labs: Abnormal lab results 05/15/19 05/15/19 05/15/19 Range/Units 06:26 06:26 06:26 WBC 16.3 H (4.5-11.0) K/mm3 MCH 26 L (28-32) pg RDW 16.1 H (13.2-15.2) % Lymph % (Auto) 12.0 L (13.4-35.0) % [place] # 0.9 H (0.0-0.8) K/mm3 Seg Neutrophils % 82.0 H (40.0-70.0) % Seg Neutrophils # 13.3 H (1.8-7.7) K/mm3 PT 12.0 L (12.2-14.9) Sec. Chloride 95.9 L (98-107) mmol/L Carbon Dioxide 33 H (22-30) mmol/L BUN 33 H (7-17) mg/dL Creatinine 0.6 L (0.7-1.2) mg/dL Glucose 109 H (65-100) mg/dL
[2019-05-15] MEDS: IPRATROPIUM/ALBUTEROL SULFATE 3 ML AMPUL.NEB IH SCH ×4 (13:58→21:11)
[2019-05-15] MEDS ORDERED: HYDROcodone/ACETAMINOPHEN 5-325 MG TAB PO PRN (14:49)
--- NOTE | 2019-05-15 18:26 | Progress Note ---
Assessment and Plan Patient is awake and alert. Patient is on 4 liters O2. O2 saturation is 100% . No acute respiratory distress. BiPAP standby in the room. patient is bipap 14/8, rate of 14. FiO2 40%. Myocardial perfusion scan reported no significant ischemi a. Patient cardiac cath reported no corronary artery disease. Normal left ventricular function. . - Patient Problems (1) COPD with acute exacerbation Current Visit: Yes Status: Acute Plan to address problem: O2 4 litres via nasal canula. BIPAP during night time. Albuterol q 6 hrs continue Soludedrol Continue S/C heparin Continue famotidine (2) CHF exacerbation Current Visit: Yes Status: Acute Qualifiers: Heart failure type: unspecified Qualified Code(s): I50.9 - Heart failure, unspecified Plan to address problem: Patient is on lasix. Management as per cardiology. (3) HTN (hypertension) Current Visit: No Status: Chronic Plan to address problem: Management as per primary care. (4) Morbid obesity Current Visit: No Status: Chronic Plan to address problem: Counselled to loose weight. Diet and exercise. (5) Tobacco use Current Visit: No Status: Chronic Plan to address problem: Patient said she stopped smoking. Subjective Date of service: 05/15/19 Principal diagnosis: AE-COPD exacerbation; Ac on ch hypoxemic resp failure; Morbid Obesity Interval history: Patient is awake and alert. Patient is on 4 liters O2. O2 saturation is 100% . No acute respiratory distress. BiPAP standby in the room. patient is bipap 14/8, rate of 14. FiO2 40%. Myocardial perfusion scan reported no significant ischemia. Patient cardiac cath reported no corronary artery disease. Normal left ventricular function. Objective Vital Signs - 12hr 05/15/19 05/15/19 05/15/19 06:55 11:03 11:05 Pulse Rate 79 78 77 Pulse Rate [ From Monitor] Blood Pressure 142/87 152/89 O2 Sat by Pulse 100 Oximetry 05/15/19 05/15/19 05/15/19 11:15 11:30 11:45 Pulse Rate 69 64 70 Pulse Rate [ From Monitor] Blood Pressure 145/96 143/101 137/85 O2 Sat by Pulse 100 100 100 Oximetry 05/15/19 05/15/19 05/15/19 12:00 12:15 12:30 Pulse Rate 67 73 83 Pulse Rate [ From Monitor] Blood Pressure 142/87 141/91 135/78 O2 Sat by Pulse 96 92 100 Oximetry 05/15/19 05/15/19 05/15/19 12:46 12:48 13:00 Pulse Rate 77 83 Pulse Rate [ 88 From Monitor] Blood Pressure 145/79 141/73 O2 Sat by Pulse 100 98 98 Oximetry 05/15/19 05/15/19 05/15/19 13:15 13:30 14:00 Pulse Rate 79 Pulse Rate [ From Monitor] Blood Pressure 135/72 135/78 138/77 O2 Sat by Pulse 100 Oximetry 05/15/19 05/15/19 05/15/19 14:30 15:00 15:14 Pulse Rate Pulse Rate [ From Monitor] Blood Pressure 128/74 135/73 131/59 O2 Sat by Pulse Oximetry 05/15/19 05/15/19 15:30 16:00 Pulse Rate Pulse Rate [ From Monitor] Blood Pressure 130/66 131/59 O2 Sat by Pulse Oximetry Constitutional: no acute distress, alert, other (middle aged mobidly obese female with mildly increased resp effort at rest) Eyes: non-icteric ENT: oropharynx moist, other (+ large neck circumference) Neck: supple, no JVD Effort: mildly labored Ascultation: Bilateral: diminished breath sounds Percussion: Bilateral: not dull Cardiovascular: regular rate and rhythm Gastrointestinal: normoactive bowel sounds, soft, non-tender, non-distended Integumentary: normal Extremities: no cyanosis, no edema, pulses normal, no ischemia or petechiae Neurologic: normal mental status, non-focal exam, pupils equal and round, CN II- XII normal, motor strength normal and Psychiatric: mood appropriate, affect normal CBC and BMP: 05/15/19 06:26 05/15/19 06:26 ABG, PT/INR, D-dimer: ABG POC ABG pH 7.614 (7.35-7.45) H 05/09/19 07:43 POC ABG pCO2 29.6 (35-45) L 05/09/19 07:43 POC ABG pO2 196 (80-105) H 05/09/19 07:43 POC ABG HCO3 30.0 (22-26 mml/L) 05/09/19 07:43 POC ABG Total CO2 31 (23-27mmol/L) 05/09/19 07:43 POC ABG O2 Sat 100 05/09/19 07:43 PT/INR, D-dimer PT 12.0 Sec. (12.2-14.9) L 05/15/19 06:26 INR 0.89 (0.87-1.13) 05/15/19 06:26 Abnormal lab findings: Abnormal Labs 05/09/19 05/09/19 05/09/19 07:31 07:31 07:43 WBC 12.7 H MCH 26 L RDW 16.6 H Lymph % (Auto) [place] # 0.9 H Seg Neutrophils % Seg Neutrophils # PT POC ABG pH 7.614 H POC ABG pCO2 29.6 L POC ABG pO2 196 H Potassium 3.3 L Chloride Carbon Dioxide BUN 19 H Creatinine Glucose NT-Pro-B Natriuret Pep 675.1 H 05/10/19 05/10/19 05/12/19 06:17 06:17 14:25 WBC 16.8 H MCH 26 L RDW 16.2 H Lymph % (Auto) 7.1 L [place] # Seg Neutrophils % 88.9 H Seg Neutrophils # 14.9 H PT POC ABG pH POC ABG pCO2 POC ABG pO2 Potassium Chloride 97.4 L Carbon Dioxide BUN 22 H 28 H Creatinine 0.5 L 0.6 L Glucose 138 H 113 H NT-Pro-B Natriuret Pep 05/13/19 05/13/19 05/15/19 05:31 05:31 06:26 WBC 13.4 H 16.3 H MCH 26 L 26 L RDW 16.2 H 16.1 H Lymph % (Auto) 12.0 L [place] # 0.9 H Seg Neutrophils % 82.0 H Seg Neutrophils # 13.3 H PT POC ABG pH POC ABG pCO2 POC ABG pO2 Potassium Chloride 97.0 L Carbon Dioxide 33 H BUN 30 H Creatinine Glucose 134 H NT-Pro-B Natriuret Pep 05/15/19 05/15/19 06:26 06:26 WBC MCH RDW Lymph % (Auto) [place] # Seg Neutrophils % Seg Neutrophils # PT 12.0 L POC ABG pH POC ABG pCO2 POC ABG pO2 Potassium Chloride 95.9 L Carbon Dioxide 33 H BUN 33 H Creatinine 0.6 L Glucose 109 H NT-Pro-B Natriuret Pep Allied health notes reviewed: nursing
[2019-05-16] MEDS: FUROSEMIDE 20 MG/2 ML INJ IV SCH ×2 (06:28→17:44)
[2019-05-16] MEDS: HEPARIN 5,000 UNIT/1 ML VIAL SUB-Q SCH ×3 (06:28→21:39)
[2019-05-16] MEDS: methylPREDNISolone Sod Succinate 40 MG/1 ML INJ IV SCH ×2 (07:51→21:38)
[2019-05-16] MEDS: diazePAM 2 MG TAB PO SCH ×3 (07:52→21:38)
[2019-05-16] MEDS: IPRATROPIUM/ALBUTEROL SULFATE 3 ML AMPUL.NEB IH SCH ×4 (08:39→21:23)
[2019-05-16] MEDS: METOPROLOL SUCCINATE XL 25 MG TAB PO SCH (09:32)
[2019-05-16] MEDS: FAMOTIDINE 20 MG TAB PO SCH ×2 (09:32→21:38)
[2019-05-16] MEDS: hydroCHLOROthiazide 12.5 MG CAP PO SCH (09:32)
[2019-05-16] MEDS: metFORMIN 500 MG TAB PO SCH ×2 (09:32→21:39)
[2019-05-16] MEDS: ASPIRIN 81 MG TAB CHEW PO SCH (09:32)
[2019-05-16] MEDS: NICOTINE 14 MG/24 HR PATCH TD SCH (09:33)
--- NOTE | 2019-05-16 12:08 | Progress Note ---
Assessment and Plan Assessment and plan: 43-year-old woman with history of chronic respiratory failure, she has been told in the past that she possibly has sarcoidosis along with COPD and a history of smoking. The patient presents to the hospital after she has signed out AGAINST MEDICAL ADVICE 2 days prior due to social reasons, she had no to take care of her daughter. The patient presented back to the hospital with worsening shortness of breath. Apparently the patient has been found unresponsive multiple times in the past month due to shortness of breath. CT chest 05/07/2019; 1. faint bilateral groundglass densities which can be associated with a diffuse infectious or inflammatory process. 2. Mildly prominent but nonpathological enlarged mediastinal lymph nodes which may be reactive. Acute on chronic hypoxic respiratory failure COPD exacerbation Likely sarcoidosis Pulmonology input appreciated, continue steroids continue BiPAP as needed, continue NC o2 on 4L now -need outpatient rheumatology fup Given concern for sarcoidosis CHF exacerbation?, normal cath and LV function during this admission. -There is concern for right heart failure and pulmonary hypertension, will obtain echo anxiety disorder- cont valium dvt ppx- heparin sq Case discussed with showcase maker. Patient needs CPAP and oxygen prior to discharge. Apparently had sleep study with mental health consultant Dr. Rosen as an outpatient History Interval history: Review of systems Constitutional: No fevers, no malaise, no joint pains CVS: No chest pain, no orthopnea, no pedal edema GI: No abdominal pain, no diarrhea, no vomiting, no constipation Respiratory: Continues to complain of shortness of breath and dyspnea on exertion Hospitalist Physical - Physical exam Narrative exam: General.: Appears well, no distress, nontoxic HEENT: Moist mucous membranes, extraocular muscles intact, no lymphadenopathy Neck: supple Cardiac: S1-S2 heard Lungs: Decreased air entry Abdomen: soft , nontender, nondistended, bowel sounds positive Extremities: no edema clubbing or cyanosis Skin: no rash or lesions Neurologic: no gross focal deficits Psych: calm, and cooperative - Constitutional Vitals: Temp Pulse Resp BP Pulse Ox 98.1 F 70 18 129/69 99 05/16/19 07:22 05/16/19 10:00 05/16/19 07:22 05/16/19 09:32 05/16/19 08:04 General appearance: Present: no acute distress Results - Labs CBC & Chem 7: 05/15/19 06:26 05/15/19 06:26 Labs: Laboratory Last Values WBC 16.3 K/mm3 (4.5-11.0) H 05/15/19 06:26 RBC 4.65 M/mm3 (3.65-5.03) 05/15/19 06:26 Hgb 12.2 gm/dl (10.1-14.3) 05/15/19 06:26 Hct 38.5 % (30.3-42.9) 05/15/19 06:26 MCV 83 fl (79-97) 05/15/19 06:26 MCH 26 pg (28-32) L 05/15/19 06:26 MCHC 32 % (30-34) 05/15/19 06:26 RDW 16.1 % (13.2-15.2) H 05/15/19 06:26 Plt Count 336 K/mm3 (140-440) 05/15/19 06:26 Lymph % (Auto) 12.0 % (13.4-35.0) L 05/15/19 06:26 [place] % (Auto) 5.6 % (0.0-7.3) 05/15/19 06:26 Eos % (Auto) 0.1 % (0.0-4.3) 05/15/19 06:26 Baso % (Auto) 0.3 % (0.0-1.8) 05/15/19 06:26 Lymph # 2.0 K/mm3 (1.2-5.4) 05/15/19 06:26 [place] # 0.9 K/mm3 (0.0-0.8) H 05/15/19 06:26 Eos # 0.0 K/mm3 (0.0-0.4) 05/15/19 06:26 Baso # 0.0 K/mm3 (0.0-0.1) 05/15/19 06:26 Seg Neutrophils % 82.0 % (40.0-70.0) H 05/15/19 06:26 Seg Neutrophils # 13.3 K/mm3 (1.8-7.7) H 05/15/19 06:26 PT 12.0 Sec. (12.2-14.9) L 05/15/19 06:26 INR 0.89 (0.87-1.13) 05/15/19 06:26 POC ABG pH 7.614 (7.35-7.45) H 05/09/19 07:43 POC ABG pCO2 29.6 (35-45) L 05/09/19 07:43 POC ABG pO2 196 (80-105) H 05/09/19 07:43 POC ABG HCO3 30.0 (22-26 mml/L) 05/09/19 07:43 POC ABG Total CO2 31 (23-27mmol/L) 05/09/19 07:43 POC ABG O2 Sat 100 05/09/19 07:43 POC ABG Base Excess 9 ((-2) - (+3)mmol/L) 05/09/19 07:43 FiO2 40 % 05/09/19 07:43 Sodium 141 mmol/L (137-145) 05/15/19 06:26 Potassium 4.6 mmol/L (3.6-5.0) 05/15/19 06:26 Chloride 95.9 mmol/L (98-107) L 05/15/19 06:26 Carbon Dioxide 33 mmol/L (22-30) H 05/15/19 06:26 Anion Gap 17 mmol/L 05/15/19 06:26 BUN 33 mg/dL (7-17) H 05/15/19 06:26 Creatinine 0.6 mg/dL (0.7-1.2) L 05/15/19 06:26 Estimated GFR > 60 ml/min 05/15/19 06:26 BUN/Creatinine Ratio 55 % 05/15/19 06:26 Glucose 109 mg/dL (65-100) H 05/15/19 06:26 Calcium 9.6 mg/dL (8.4-10.2) 05/15/19 06:26 Magnesium 2.30 mg/dL (1.7-2.3) 05/12/19 14:25 Total Bilirubin 0.40 mg/dL (0.1-1.2) 05/09/19 07:31 AST 10 units/L (5-40) 05/09/19 07:31 ALT 7 units/L (7-56) 05/09/19 07:31 Alkaline Phosphatase 66 units/L (35-129) 05/09/19 07:31 Troponin T < 0.010 ng/mL (0.00-0.029) 05/11/19 05:53 NT-Pro-B Natriuret Pep 675.1 pg/mL (0-450) H 05/09/19 07:31 Total Protein 7.4 g/dL (6.3-8.2) 05/09/19 07:31 Albumin 3.9 g/dL (3.9-5) 05/09/19 07:31 Albumin/Globulin Ratio 1.1 % 05/09/19 07:31 Urine HCG, Qual Negative (Negative) 05/11/19 06:29 Active Medications - Current Medications Current Medications: Generic Name Dose Route Start Last Admin Trade Name Freq PRN Reason Stop Dose Admin Acetaminophen 650 mg 05/09/19 16:09 Tylenol PO Q4H PRN Pain MILD(1-3)/Fever >100.5/CESAR Acetaminophen/Hydrocodone Bitart 1 each 05/15/19 14:49 05/15/19 15:57 [place] 5/325 PO 1 each Q6H PRN Administration Pain, Moderate (4-6) Albuterol 2.5 mg 05/09/19 16:10 05/10/19 11:45 Proventil IH 2.5 mg Q4HRT PRN Administration Shortness Of Breath Albuterol/Ipratropium 1 ampul 05/15/19 08:00 05/16/19 08:39 Duoneb *Not For Prn Use* IH 1 ampul QIDRT DARIUSZ Administration Aspirin 81 mg 05/12/19 10:00 05/16/19 09:32 Baby Aspirin PO 81 mg QDAY DARIUSZ Administration Diazepam 1 mg 05/09/19 20:00 05/16/19 07:52 Valium PO 1 mg TID DARIUSZ Administration Famotidine 20 mg 05/11/19 22:00 05/16/19 09:32 Pepcid PO 20 mg BID DARIUSZ Administration Furosemide 20 mg 05/09/19 18:00 05/16/19 06:28 Lasix IV 20 mg 0600,1800 DARIUSZ Administration Heparin Sodium (Porcine) 5,000 unit 05/10/19 23:30 05/16/19 06:28 Heparin SUB-Q 5,000 unit Q8HR DARIUSZ Administration Hydrochlorothiazide 12.5 mg 05/10/19 10:00 05/16/19 09:32 Hctz PO 12.5 mg QDAY DARIUSZ Administration Sodium Chloride 500 mls @ 50 mls/hr 05/15/19 08:00 Nacl 0.9% 500 Ml IV DIRECT DARIUSZ Metformin HCl 500 mg 05/09/19 22:00 05/16/19 09:32 Glucophage PO 500 mg BID DARIUSZ Administration Methylprednisolone Sodium Succinate 40 mg 05/14/19 19:00 05/16/19 07:51 Solu-Medrol IV 40 mg Q12H DARIUSZ Administration Metoprolol Succinate 25 mg 05/09/19 19:00 05/16/19 09:32 Metoprolol Xl PO 25 mg QDAY DARIUSZ Administration Nicotine 14 mg 05/10/19 10:00 05/16/19 09:33 Habitrol TD 14 mg QDAY DARIUSZ Administration Ondansetron HCl 4 mg 05/09/19 16:09 05/10/19 15:08 Zofran IV 4 mg Q8H PRN Administration Nausea And Vomiting Sodium Chloride 10 ml 05/09/19 22:00 05/16/19 09:33 Sodium Chloride Flush Syringe 10 Ml IV 10 ml BID DARIUSZ Administration Sodium Chloride 10 ml 05/09/19 16:09 Sodium Chloride Flush Syringe 10 Ml IV PRN PRN LINE FLUSH Zolpidem Tartrate 5 mg 05/09/19 18:37 05/15/19 22:32 Ambien PO 5 mg QHS PRN Administration Sleep Nutrition/Malnutrition Assess - Dietary Evaluation Nutrition/Malnutrition Findings: Nutrition Notes Start: 05/09/19 13:24 Freq: Status: Active Protocol: Document 05/09/19 13:24 DW (Rec: 05/09/19 13:50 DW [id number]) Co-Sign 05/09/19 13:24 Nutrition Notes Need for Assessment generated from: conversion man,MST Initial or Follow up Assessment Current Diagnosis COPD,Hypertension,Heart Failure Other Pertinent Diagnosis Asthma Current Diet Cardiac Labs/Tests PRO BNP 675.1 Pertinent Medications Reviewed Height 5 ft 10 in Weight 125.645 kg [place] Body Weight (kg) 68.18 BMI 39.7 Weight change and time frame 34.8% in 10 months Subjective/Other Information RN screen for malnutrition 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 Pt stated she has lost 147 lb in 1 year but that was intentional. Pt stated she previously took a diet pill to help her lose wt. Pt stated she does a lot of walking at work and was going to the gym. Pt also stated she does not like the bland taste of diet order and eats what she likes. Burn Absent Trauma Absent GI Symptoms None Minimum of two criteria No physical signs of malnutrition #1 Nutrition Diagnosis No nutrition diagnosis at this time Is patient on ventilator? No Is Patient Ambulatory and/or Out of Bed Yes REE-([place]-ambulatory/OOB) [ 2589.210 [id number]] Kcal/Kg value to use for calculation 16 Approximate Energy Requirements Using 2010 kcal/Kg Calculation Used for Recommendations Kcal/kg Additional Notes PRO needs: 77-96g (0.8-1.0 g/ kg adjBW 96.5kg) Fluid needs: Per MD Nutrition Intervention Change Diet Order: Continue Current Diet Anticipated Discharge Needs: Cardiac Diet Revisit per MD consult or patient Sign Off request:
--- NOTE | 2019-05-16 18:19 | Progress Note ---
Assessment and Plan Patient is awake and alert. Patient is on 4 liters O2. O2 saturation is 99% . No acute respiratory distress. BiPAP standby in the room. patient is bipap 14/8, rate of 14. FiO2 40%. Myocardial perfusion scan reported no significant ischemia . Patient cardiac cath reported no corronary artery disease. Normal left ventricular function. Patient complaining sore throat. Starting on PO zithromax. . - Patient Problems (1) COPD with acute exacerbation Current Visit: Yes Status: Acute Plan to address problem: O2 4 litres via nasal canula. BIPAP during night time. Albuterol q 6 hrs continue Soludedrol Continue S/C heparin Continue famotidine Zithromax 500 mg po qd. (2) CHF exacerbation Current Visit: Yes Status: Acute Qualifiers: Heart failure type: unspecified Qualified Code(s): I50.9 - Heart failure, unspecified Plan to address problem: Patient is on lasix. Management as per cardiology. (3) HTN (hypertension) Current Visit: No Status: Chronic Plan to address problem: Management as per primary care. (4) Morbid obesity Current Visit: No Status: Chronic Plan to address problem: Counselled to loose weight. Diet and exercise. (5) Tobacco use Current Visit: No Status: Chronic Plan to address problem: Patient said she stopped smoking. Subjective Date of service: 05/16/19 Principal diagnosis: AE-COPD exacerbation; Ac on ch hypoxemic resp failure; Morbid Obesity Interval history: Patient is awake and alert. Patient is on 4 liters O2. O2 saturation is 99% . No acute respiratory distress. BiPAP standby in the room. patient is bipap 14/8, rate of 14. FiO2 40%. Myocardial perfusion scan reported no significant ischemia. Patient cardiac cath reported no corronary artery disease. Normal left ventricular function. Patient complaining sore thrat. Starting PO zithromax. Objective Vital Signs - 12hr 05/16/19 05/16/19 05/16/19 07:22 08:04 09:32 Temperature 98.1 F Pulse Rate 80 Pulse Rate [ 84 From Monitor] Respiratory 18 Rate Blood Pressure 129/69 129/69 O2 Sat by Pulse 99 Oximetry 05/16/19 10:00 Temperature Pulse Rate 70 Pulse Rate [ From Monitor] Respiratory Rate Blood Pressure O2 Sat by Pulse Oximetry Constitutional: no acute distress, alert, other (middle aged mobidly obese female with mildly increased resp effort at rest) Eyes: non-icteric ENT: oropharynx moist, other (+ large neck circumference) Neck: supple, no JVD Effort: mildly labored Ascultation: Bilateral: diminished breath sounds Percussion: Bilateral: not dull Cardiovascular: regular rate and rhythm Gastrointestinal: normoactive bowel sounds, soft, non-tender, non-distended Integumentary: normal Extremities: no cyanosis, no edema, pulses normal, no ischemia or petechiae Neurologic: normal mental status, non-focal exam, pupils equal and round, CN II- XII normal, motor strength normal and Psychiatric: mood appropriate, affect normal CBC and BMP: 05/15/19 06:26 05/15/19 06:26 ABG, PT/INR, D-dimer: ABG POC ABG pH 7.614 (7.35-7.45) H 05/09/19 07:43 POC ABG pCO2 29.6 (35-45) L 05/09/19 07:43 POC ABG pO2 196 (80-105) H 05/09/19 07:43 POC ABG HCO3 30.0 (22-26 mml/L) 05/09/19 07:43 POC ABG Total CO2 31 (23-27mmol/L) 05/09/19 07:43 POC ABG O2 Sat 100 05/09/19 07:43 PT/INR, D-dimer PT 12.0 Sec. (12.2-14.9) L 05/15/19 06:26 INR 0.89 (0.87-1.13) 05/15/19 06:26 Abnormal lab findings: Abnormal Labs 05/09/19 05/09/19 05/09/19 07:31 07:31 07:43 WBC 12.7 H MCH 26 L RDW 16.6 H Lymph % (Auto) [place] # 0.9 H Seg Neutrophils % Seg Neutrophils # PT POC ABG pH 7.614 H POC ABG pCO2 29.6 L POC ABG pO2 196 H Potassium 3.3 L Chloride Carbon Dioxide BUN 19 H Creatinine Glucose NT-Pro-B Natriuret Pep 675.1 H 05/10/19 05/10/19 05/12/19 06:17 06:17 14:25 WBC 16.8 H MCH 26 L RDW 16.2 H Lymph % (Auto) 7.1 L [place] # Seg Neutrophils % 88.9 H Seg Neutrophils # 14.9 H PT POC ABG pH POC ABG pCO2 POC ABG pO2 Potassium Chloride 97.4 L Carbon Dioxide BUN 22 H 28 H Creatinine 0.5 L 0.6 L Glucose 138 H 113 H NT-Pro-B Natriuret Pep 05/13/19 05/13/19 05/15/19 05:31 05:31 06:26 WBC 13.4 H 16.3 H MCH 26 L 26 L RDW 16.2 H 16.1 H Lymph % (Auto) 12.0 L [place] # 0.9 H Seg Neutrophils % 82.0 H Seg Neutrophils # 13.3 H PT POC ABG pH POC ABG pCO2 POC ABG pO2 Potassium Chloride 97.0 L Carbon Dioxide 33 H BUN 30 H Creatinine Glucose 134 H NT-Pro-B Natriuret Pep 05/15/19 05/15/19 06:26 06:26 WBC MCH RDW Lymph % (Auto) [place] # Seg Neutrophils % Seg Neutrophils # PT 12.0 L POC ABG pH POC ABG pCO2 POC ABG pO2 Potassium Chloride 95.9 L Carbon Dioxide 33 H BUN 33 H Creatinine 0.6 L Glucose 109 H NT-Pro-B Natriuret Pep Allied health notes reviewed: nursing
[2019-05-16] MEDS ORDERED: AZITHROMYCIN 250 MG TAB PO ONE (19:59)
[2019-05-16] MEDS: ZOLPIDEM 5 MG TAB PO PRN (21:39)
[2019-05-17] MEDS: FUROSEMIDE 20 MG/2 ML INJ IV SCH (05:21)
[2019-05-17] MEDS: HEPARIN 5,000 UNIT/1 ML VIAL SUB-Q SCH ×3 (05:22→21:02)
[2019-05-17] MEDS: IPRATROPIUM/ALBUTEROL SULFATE 3 ML AMPUL.NEB IH SCH ×3 (08:45→20:49)
[2019-05-17] MEDS: METOPROLOL SUCCINATE XL 25 MG TAB PO SCH (09:15)
[2019-05-17] MEDS: diazePAM 2 MG TAB PO SCH ×3 (09:15→20:52)
[2019-05-17] MEDS: hydroCHLOROthiazide 12.5 MG CAP PO SCH (09:15)
[2019-05-17] MEDS: ASPIRIN 81 MG TAB CHEW PO SCH (09:27)
[2019-05-17] MEDS: metFORMIN 500 MG TAB PO SCH ×2 (09:27→21:02)
[2019-05-17] MEDS: FAMOTIDINE 20 MG TAB PO SCH ×2 (09:27→21:02)
[2019-05-17] MEDS: methylPREDNISolone Sod Succinate 40 MG/1 ML INJ IV SCH ×2 (09:28→20:52)
[2019-05-17] MEDS: NICOTINE 14 MG/24 HR PATCH TD SCH (09:28)
--- NOTE | 2019-05-17 12:28 | Progress Note ---
Assessment and Plan Assessment and plan: 43-year-old woman with history of chronic respiratory failure, she has been told in the past that she possibly has sarcoidosis along with COPD and a history of smoking. The patient presents to the hospital after she has signed out AGAINST MEDICAL ADVICE 2 days prior due to social reasons, she had no to take care of her daughter. The patient presented back to the hospital with worsening shortness of breath. Apparently the patient has been found unresponsive multiple times in the past month due to shortness of breath. CT chest 05/07/2019; 1. faint bilateral groundglass densities which can be associated with a diffuse infectious or inflammatory process. 2. Mildly prominent but nonpathological enlarged mediastinal lymph nodes which may be reactive. Acute on chronic hypoxic respiratory failure COPD exacerbation Likely sarcoidosis Pulmonology input appreciated, continue steroids continue BiPAP as needed, continue NC o2 on 4L now -need outpatient rheumatology fup Given concern for sarcoidosis CHF exacerbation?, normal cath and LV function during this admission. -There is concern for right heart failure and pulmonary hypertension, will obtain echo anxiety disorder- cont valium dvt ppx- heparin sq Case discussed with shelter case manager. Patient needs CPAP and oxygen prior to discharge. Apparently had sleep study with mental health coordinator Dr. Rosen as an outpatient History Interval history: Review of systems Constitutional: No fevers, no malaise, no joint pains CVS: No chest pain, no orthopnea, no pedal edema GI: No abdominal pain, no diarrhea, no vomiting, no constipation Respiratory: Continues to complain of shortness of breath and dyspnea on exertion Hospitalist Physical - Physical exam Narrative exam: General.: Appears well, no distress, nontoxic HEENT: Moist mucous membranes, extraocular muscles intact, no lymphadenopathy Neck: supple Cardiac: S1-S2 heard Lungs: Decreased air entry Abdomen: soft , nontender, nondistended, bowel sounds positive Extremities: no edema clubbing or cyanosis Skin: no rash or lesions Neurologic: no gross focal deficits Psych: calm, and cooperative - Constitutional Vitals: Temp Pulse Resp BP Pulse Ox 97.6 F 68 20 137/78 98 05/17/19 08:34 05/17/19 10:00 05/17/19 09:06 05/17/19 09:58 05/17/19 10:00 General appearance: Present: no acute distress Results - Labs CBC & Chem 7: 05/15/19 06:26 05/15/19 06:26 Labs: Laboratory Last Values WBC 16.3 K/mm3 (4.5-11.0) H 05/15/19 06:26 RBC 4.65 M/mm3 (3.65-5.03) 05/15/19 06:26 Hgb 12.2 gm/dl (10.1-14.3) 05/15/19 06:26 Hct 38.5 % (30.3-42.9) 05/15/19 06:26 MCV 83 fl (79-97) 05/15/19 06:26 MCH 26 pg (28-32) L 05/15/19 06:26 MCHC 32 % (30-34) 05/15/19 06:26 RDW 16.1 % (13.2-15.2) H 05/15/19 06:26 Plt Count 336 K/mm3 (140-440) 05/15/19 06:26 Lymph % (Auto) 12.0 % (13.4-35.0) L 05/15/19 06:26 Yell % (Auto) 5.6 % (0.0-7.3) 05/15/19 06:26 Eos % (Auto) 0.1 % (0.0-4.3) 05/15/19 06:26 Baso % (Auto) 0.3 % (0.0-1.8) 05/15/19 06:26 Lymph # 2.0 K/mm3 (1.2-5.4) 05/15/19 06:26 Yell # 0.9 K/mm3 (0.0-0.8) H 05/15/19 06:26 Eos # 0.0 K/mm3 (0.0-0.4) 05/15/19 06:26 Baso # 0.0 K/mm3 (0.0-0.1) 05/15/19 06:26 Seg Neutrophils % 82.0 % (40.0-70.0) H 05/15/19 06:26 Seg Neutrophils # 13.3 K/mm3 (1.8-7.7) H 05/15/19 06:26 PT 12.0 Sec. (12.2-14.9) L 05/15/19 06:26 INR 0.89 (0.87-1.13) 05/15/19 06:26 POC ABG pH 7.614 (7.35-7.45) H 05/09/19 07:43 POC ABG pCO2 29.6 (35-45) L 05/09/19 07:43 POC ABG pO2 196 (80-105) H 05/09/19 07:43 POC ABG HCO3 30.0 (22-26 mml/L) 05/09/19 07:43 POC ABG Total CO2 31 (23-27mmol/L) 05/09/19 07:43 POC ABG O2 Sat 100 05/09/19 07:43 POC ABG Base Excess 9 ((-2) - (+3)mmol/L) 05/09/19 07:43 FiO2 40 % 05/09/19 07:43 Sodium 141 mmol/L (137-145) 05/15/19 06:26 Potassium 4.6 mmol/L (3.6-5.0) 05/15/19 06:26 Chloride 95.9 mmol/L (98-107) L 05/15/19 06:26 Carbon Dioxide 33 mmol/L (22-30) H 05/15/19 06:26 Anion Gap 17 mmol/L 05/15/19 06:26 BUN 33 mg/dL (7-17) H 05/15/19 06:26 Creatinine 0.6 mg/dL (0.7-1.2) L 05/15/19 06:26 Estimated GFR > 60 ml/min 05/15/19 06:26 BUN/Creatinine Ratio 55 % 05/15/19 06:26 Glucose 109 mg/dL (65-100) H 05/15/19 06:26 POC Glucose 96 (70-105) 05/16/19 17:35 Calcium 9.6 mg/dL (8.4-10.2) 05/15/19 06:26 Magnesium 2.30 mg/dL (1.7-2.3) 05/12/19 14:25 Total Bilirubin 0.40 mg/dL (0.1-1.2) 05/09/19 07:31 AST 10 units/L (5-40) 05/09/19 07:31 ALT 7 units/L (7-56) 05/09/19 07:31 Alkaline Phosphatase 66 units/L (35-129) 05/09/19 07:31 Troponin T < 0.010 ng/mL (0.00-0.029) 05/11/19 05:53 NT-Pro-B Natriuret Pep 675.1 pg/mL (0-450) H 05/09/19 07:31 Total Protein 7.4 g/dL (6.3-8.2) 05/09/19 07:31 Albumin 3.9 g/dL (3.9-5) 05/09/19 07:31 Albumin/Globulin Ratio 1.1 % 05/09/19 07:31 Urine HCG, Qual Negative (Negative) 05/11/19 06:29 Active Medications - Current Medications Current Medications: Generic Name Dose Route Start Last Admin Trade Name Freq PRN Reason Stop Dose Admin Acetaminophen 650 mg 05/09/19 16:09 Tylenol PO Q4H PRN Pain MILD(1-3)/Fever >100.5/CESAR Acetaminophen/Hydrocodone Bitart 1 each 05/15/19 14:49 05/15/19 15:57 [place] 5/325 PO 1 each Q6H PRN Administration Pain, Moderate (4-6) Albuterol 2.5 mg 05/09/19 16:10 05/10/19 11:45 Proventil IH 2.5 mg Q4HRT PRN Administration Shortness Of Breath Albuterol/Ipratropium 1 ampul 05/17/19 14:00 Duoneb *Not For Prn Use* IH TIDRT DARIUSZ Aspirin 81 mg 05/12/19 10:00 05/17/19 09:27 Baby Aspirin PO 81 mg QDAY DARIUSZ Administration Diazepam 1 mg 05/09/19 20:00 05/17/19 09:15 Valium PO Not Given TID DARIUSZ Famotidine 20 mg 05/11/19 22:00 05/17/19 09:27 Pepcid PO 20 mg BID DARIUSZ Administration Heparin Sodium (Porcine) 5,000 unit 05/10/19 23:30 05/17/19 05:22 Heparin SUB-Q 5,000 unit Q8HR DARIUSZ Administration Hydrochlorothiazide 12.5 mg 05/10/19 10:00 05/17/19 09:15 Hctz PO Not Given QDAY DARIUSZ Metformin HCl 500 mg 05/09/19 22:00 05/17/19 09:27 Glucophage PO 500 mg BID DARIUSZ Administration Methylprednisolone Sodium Succinate 40 mg 05/14/19 19:00 05/17/19 09:28 Solu-Medrol IV 40 mg Q12H DARIUSZ Administration Metoprolol Succinate 25 mg 05/09/19 19:00 05/17/19 09:15 Metoprolol Xl PO Not Given QDAY DARIUSZ Nicotine 14 mg 05/10/19 10:00 05/17/19 09:28 Habitrol TD 14 mg QDAY DARIUSZ Administration Sodium Chloride 10 ml 05/09/19 22:00 05/17/19 09:28 Sodium Chloride Flush Syringe 10 Ml IV 10 ml BID DARIUSZ Administration Sodium Chloride 10 ml 05/09/19 16:09 Sodium Chloride Flush Syringe 10 Ml IV PRN PRN LINE FLUSH Zolpidem Tartrate 5 mg 05/09/19 18:37 05/16/19 21:39 Ambien PO 5 mg QHS PRN Administration Sleep Nutrition/Malnutrition Assess - Dietary Evaluation Nutrition/Malnutrition Findings: Nutrition Notes Start: 05/09/19 13:24 Freq: Status: Active Protocol: Document 05/17/19 10:27 CT (Rec: 05/17/19 10:41 CT [id number]) Co-Sign 05/17/19 10:27 LP Nutrition Notes Need for Assessment generated from: LOS Initial or Follow up Brief Note Current Diagnosis COPD,Hypertension,Heart Failure Other Pertinent Diagnosis Asthma Current Diet Cardiac Labs/Tests Reviewed Pertinent Medications Reviewed Height 5 ft 10 in Weight 133.5 kg [place] Body Weight (kg) 68.18 BMI 42.2 Subjective/Other Information Screened for LOS. ADL note that pt is eating 100% of meals. Percent of energy/protein needs met: 100% / 100% Burn Absent Trauma Absent Nutrition Intervention Revisit per MD consult or patient Sign Off request:
--- NOTE | 2019-05-17 18:20 | Progress Note ---
Assessment and Plan Patient is awake and alert. Patient is on 4 liters O2. O2 saturation is 98% . No acute respiratory distress. BiPAP standby in the room. patient is bipap 14/8, rate of 14. FiO2 40%. Myocardial perfusion scan reported no significant ischemia . Patient cardiac cath reported no corronary artery disease. Normal left ventricular function. Patient complaining sore throat. Started on PO zithromax. Patient says sore throat some what better today. . - Patient Problems (1) COPD with acute exacerbation Current Visit: Yes Status: Acute Plan to address problem: O2 4 litres via nasal canula. BIPAP during night time. Albuterol q 6 hrs continue Soludedrol Continue S/C heparin Continue famotidine Zithromax 500 mg po qd. (2) CHF exacerbation Current Visit: Yes Status: Acute Qualifiers: Heart failure type: unspecified Qualified Code(s): I50.9 - Heart failure, unspecified Plan to address problem: Patient is on lasix. Management as per cardiology. (3) HTN (hypertension) Current Visit: No Status: Chronic Plan to address problem: Management as per primary care. (4) Morbid obesity Current Visit: No Status: Chronic Plan to address problem: Counselled to loose weight. Diet and exercise. (5) Tobacco use Current Visit: No Status: Chronic Plan to address problem: Patient said she stopped smoking. Subjective Date of service: 05/17/19 Principal diagnosis: AE-COPD exacerbation; Ac on ch hypoxemic resp failure; Morbid Obesity Interval history: Patient is awake and alert. Patient is on 4 liters O2. O2 saturation is 98% . No acute respiratory distress. BiPAP standby in the room. patient is bipap 14/8, rate of 14. FiO2 40%. Myocardial perfusion scan reported no significant ischemia. Patient cardiac cath reported no corronary artery disease. Normal left ventricular function. Patient complaining sore thrat. Started PO zithromax. Patient says sore throat some what better to day. Objective Vital Signs - 12hr 05/17/19 05/17/19 05/17/19 08:34 08:45 09:06 Temperature 97.6 F Pulse Rate Pulse Rate [ 102 H Anterior Bilateral] Pulse Rate [ 106 H Posterior Bilateral Throughout] Respiratory 18 Rate Respiratory 20 Rate [Anterior Bilateral] Respiratory 20 Rate [Posterior Bilateral Throughout] Blood Pressure 79/42 O2 Sat by Pulse 100 Oximetry 11/13/19 11/13/19 11/13/19 09:15 09:40 09:58 Temperature Pulse Rate 79 66 Pulse Rate [ Anterior Bilateral] Pulse Rate [ Posterior Bilateral Throughout] Respiratory Rate Respiratory Rate [Anterior Bilateral] Respiratory Rate [Posterior Bilateral Throughout] Blood Pressure 79/42 137/78 O2 Sat by Pulse 100 97 Oximetry 05/17/19 05/17/19 05/17/19 10:00 11:53 15:46 Temperature 98.7 F Pulse Rate 68 Pulse Rate [ 78 Anterior Bilateral] Pulse Rate [ Posterior Bilateral Throughout] Respiratory 18 Rate Respiratory 20 Rate [Anterior Bilateral] Respiratory Rate [Posterior Bilateral Throughout] Blood Pressure 125/73 O2 Sat by Pulse 98 Oximetry Constitutional: no acute distress, alert, other (middle aged mobidly obese female with mildly increased resp effort at rest) Eyes: non-icteric ENT: oropharynx moist, other (+ large neck circumference) Neck: supple, no JVD Effort: mildly labored Ascultation: Bilateral: diminished breath sounds Percussion: Bilateral: not dull Cardiovascular: regular rate and rhythm Gastrointestinal: normoactive bowel sounds, soft, non-tender, non-distended Integumentary: normal Extremities: no cyanosis, no edema, pulses normal, no ischemia or petechiae Neurologic: normal mental status, non-focal exam, pupils equal and round, CN II- XII normal, motor strength normal and Psychiatric: mood appropriate, affect normal CBC and BMP: 05/15/19 06:26 05/15/19 06:26 ABG, PT/INR, D-dimer: ABG POC ABG pH 7.614 (7.35-7.45) H 05/09/19 07:43 POC ABG pCO2 29.6 (35-45) L 05/09/19 07:43 POC ABG pO2 196 (80-105) H 05/09/19 07:43 POC ABG HCO3 30.0 (22-26 mml/L) 05/09/19 07:43 POC ABG Total CO2 31 (23-27mmol/L) 05/09/19 07:43 POC ABG O2 Sat 100 05/09/19 07:43 PT/INR, D-dimer PT 12.0 Sec. (12.2-14.9) L 05/15/19 06:26 INR 0.89 (0.87-1.13) 05/15/19 06:26 Abnormal lab findings: Abnormal Labs 05/09/19 05/09/19 05/09/19 07:31 07:31 07:43 WBC 12.7 H MCH 26 L RDW 16.6 H Lymph % (Auto) [place] # 0.9 H Seg Neutrophils % Seg Neutrophils # PT POC ABG pH 7.614 H POC ABG pCO2 29.6 L POC ABG pO2 196 H Potassium 3.3 L Chloride Carbon Dioxide BUN 19 H Creatinine Glucose NT-Pro-B Natriuret Pep 675.1 H 05/10/19 05/10/19 05/12/19 06:17 06:17 14:25 WBC 16.8 H MCH 26 L RDW 16.2 H Lymph % (Auto) 7.1 L [place] # Seg Neutrophils % 88.9 H Seg Neutrophils # 14.9 H PT POC ABG pH POC ABG pCO2 POC ABG pO2 Potassium Chloride 97.4 L Carbon Dioxide BUN 22 H 28 H Creatinine 0.5 L 0.6 L Glucose 138 H 113 H NT-Pro-B Natriuret Pep 05/13/19 05/13/19 05/15/19 05:31 05:31 06:26 WBC 13.4 H 16.3 H MCH 26 L 26 L RDW 16.2 H 16.1 H Lymph % (Auto) 12.0 L [place] # 0.9 H Seg Neutrophils % 82.0 H Seg Neutrophils # 13.3 H PT POC ABG pH POC ABG pCO2 POC ABG pO2 Potassium Chloride 97.0 L Carbon Dioxide 33 H BUN 30 H Creatinine Glucose 134 H NT-Pro-B Natriuret Pep 05/15/19 05/15/19 06:26 06:26 WBC MCH RDW Lymph % (Auto) [place] # Seg Neutrophils % Seg Neutrophils # PT 12.0 L POC ABG pH POC ABG pCO2 POC ABG pO2 Potassium Chloride 95.9 L Carbon Dioxide 33 H BUN 33 H Creatinine 0.6 L Glucose 109 H NT-Pro-B Natriuret Pep Allied health notes reviewed: nursing
[2019-05-18] MEDS: ZOLPIDEM 5 MG TAB PO PRN (00:31)
[2019-05-18] MEDS: HEPARIN 5,000 UNIT/1 ML VIAL SUB-Q SCH ×3 (06:32→21:56)
[2019-05-18] MEDS: methylPREDNISolone Sod Succinate 40 MG/1 ML INJ IV SCH ×2 (06:32→20:08)
[2019-05-18] MEDS: IPRATROPIUM/ALBUTEROL SULFATE 3 ML AMPUL.NEB IH SCH ×3 (10:11→21:02)
[2019-05-18] MEDS: FAMOTIDINE 20 MG TAB PO SCH ×2 (10:20→21:55)
[2019-05-18] MEDS: hydroCHLOROthiazide 12.5 MG CAP PO SCH (10:20)
[2019-05-18] MEDS: ASPIRIN 81 MG TAB CHEW PO SCH (10:20)
[2019-05-18] MEDS: METOPROLOL SUCCINATE XL 25 MG TAB PO SCH (10:21)
[2019-05-18] MEDS: NICOTINE 14 MG/24 HR PATCH TD SCH (10:21)
[2019-05-18] MEDS: metFORMIN 500 MG TAB PO SCH ×2 (10:21→21:56)
[2019-05-18] MEDS: diazePAM 2 MG TAB PO SCH ×3 (10:21→21:56)
--- NOTE | 2019-05-18 11:04 | Discharge Summary ---
Providers - Providers Date of Admission: 05/09/19 09:19 Attending physician: WENDY SNOW MD 05/09/19 10:16 Consult to Physician [CONS] Routine Comment: Consulting Provider: MEHDI COLUNGA Physician Instructions: Reason For Exam: Acute resp failure 05/09/19 16:00 Consult to Physician [CONS] Routine Comment: Consulting Provider: ABDON AG Physician Instructions: Reason For Exam: CHF Hospitalization Condition: Good Hospital course: 43-year-old woman with history of chronic respiratory failure, she has been told in the past that she possibly has sarcoidosis along with COPD and a history of smoking. The patient presents to the hospital after she has signed out AGAINST MEDICAL ADVICE 2 days prior due to social reasons, she had no to take care of her daughter. The patient presented back to the hospital with worsening shortness of breath. Apparently the patient has been found unresponsive multiple times in the past month due to shortness of breath. CT chest 05/07/2019; 1. faint bilateral groundglass densities which can be associated with a diffuse infectious or inflammatory process. 2. Mildly prominent but nonpathological enlarged mediastinal lymph nodes which may be reactive. Acute on chronic hypoxic respiratory failure COPD exacerbation Likely sarcoidosis Pulmonology input appreciated, treated with steroids, discharged on steroid taper., continue [place] o2 on 4L now, case management was able to switch her home oxygen from self-pay to her new insurance -Obstructive sleep apnea; patient has CPAP at home, but needs a new sleep study, as they might be planning to recommend BiPAP for her. 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 -need outpatient rheumatology fup Given concern for sarcoidosis CHF was excluded, CAD was excluded, normal echo and normal cardiac cath anxiety disorder- cont valium dvt ppx- heparin sq Diagnosis Acute on chronic hypoxic respiratory failure COPD exacerbation Likely sarcoidosis Sleep apnea Anxiety disorder Disposition: DC-01 TO HOME OR SELFCARE Time spent for discharge: 33 mins Core Measure Documentation - Palliative Care Palliative Care/ Comfort Measures: Not Applicable - Core Measures Any of the following diagnoses?: none Exam - Physical Exam Narrative exam: General.: Appears well, no distress, nontoxic HEENT: Moist mucous membranes, extraocular muscles intact, no lymphadenopathy Neck: supple Cardiac: S1-S2 heard Lungs: Decreased air entry Abdomen: soft , nontender, nondistended, bowel sounds positive Extremities: no edema clubbing or cyanosis Skin: no rash or lesions Neurologic: no gross focal deficits Psych: calm, and cooperative - Constitutional Vitals: Temp Pulse Resp BP Pulse Ox 97.7 F 91 H 20 138/78 98 05/18/19 08:12 05/18/19 08:51 05/18/19 08:12 05/18/19 08:12 05/18/19 10:00 [facility]Other[facility] - 3-5 Days DIVINE HARRIS MD [Referring] - 7 Days MEHDI COLUNGA MD [Staff Physician] - 7 Days MAG STARKS MD [Staff Physician] - 7 Days Prescriptions: Fluticasone/Vilanterol [Breo Ellipta 200-25 Mcg INH] 1 each IH BID #1 blst.w.dev hydroCHLOROthiazide [HCTZ] 12.5 mg PO QDAY #90 capsule Prednisone [predniSONE 10 mg (6-Day Pack, 21 Tabs)] 10 mg PO .TAPER #1 tab.ds.pk ALBUTEROL NEB's [Proventil 0.083% NEBS] 5 mg IH TID PRN #90 neb PRN Reason: Wheezing Tiotropium Register [Spiriva Respimat] 1 each IH DAILY #1 mist.inhal Ipratropium/Albuterol Sulfate [DUONEB *Not for PRN Use*] 1 ampul IH QIDRT #90 ampul.neb
[2019-05-18] MEDS: ACETAMINOPHEN 325 MG TAB PO PRN (20:08)
--- NOTE | 2019-05-18 20:25 | Progress Note ---
Assessment and Plan Patient is awake and alert. Patient is on 4 liters O2. O2 saturation is 100% . No acute respiratory distress. BiPAP standby in the room. patient is bipap 14/8, rate of 14. FiO2 40%. Myocardial perfusion scan reported no significant ischemi a. Patient cardiac cath reported no corronary artery disease. Normal left ventricular function. Patient complaining sore throat. Started PO zithromax. Patient says sore throat some what better to day. Patient can go home from pulmonary point of view on po prednisone, po antibiotics and aerosolized bronchosilators. Patient already has Home O2. See her as out patient for pulmonary problems in my office in 2 weeks. - Patient Problems (1) COPD with acute exacerbation Current Visit: Yes Status: Acute Plan to address problem: O2 4 litres via nasal canula. BIPAP during night time. Albuterol q 6 hrs continue Soludedrol Continue S/C heparin Continue famotidine Zithromax 500 mg po qd. (2) CHF exacerbation Current Visit: Yes Status: Acute Qualifiers: Heart failure type: unspecified Qualified Code(s): I50.9 - Heart failure, unspecified Plan to address problem: Patient is on lasix. Management as per cardiology. (3) HTN (hypertension) Current Visit: No Status: Chronic Plan to address problem: Management as per primary care. (4) Morbid obesity Current Visit: No Status: Chronic Plan to address problem: Counselled to loose weight. Diet and exercise. (5) Tobacco use Current Visit: No Status: Chronic Plan to address problem: Patient said she stopped smoking. Subjective Date of service: 05/18/19 Principal diagnosis: AE-COPD exacerbation; Ac on ch hypoxemic resp failure; M orbid Obesity Interval history: Patient is awake and alert. Patient is on 4 liters O2. O2 saturation is 100% . No acute respiratory distress. BiPAP standby in the room. patient is bipap 14/8, rate of 14. FiO2 40%. Myocardial perfusion scan reported no significant ischemia. Patient cardiac cath reported no corronary artery disease. Normal left ventricular function. Patient complaining sore throat. Started PO zithromax. Patient says sore throat some what better to day. Patient can go home from pulmonary point of view on po prednisone, po antibiotics and aerosolized bronchosilators. Patient already has Home O2. See her as out patient for pulmonary problems in my office in 2 weeks. Objective Vital Signs - 12hr 05/18/19 05/18/19 05/18/19 08:51 10:00 11:43 Temperature 97.8 F Pulse Rate 91 H 79 Pulse Rate [ Anterior Bilateral] Pulse Rate [ Posterior Bilateral Throughout] Respiratory 20 Rate Respiratory Rate [Anterior Bilateral] Respiratory Rate [Posterior Bilateral Throughout] Blood Pressure 140/77 O2 Sat by Pulse 98 99 Oximetry 05/18/19 05/18/19 12:00 15:58 Temperature 98.3 F Pulse Rate 93 H Pulse Rate [ 78 Anterior Bilateral] Pulse Rate [ 108 H Posterior Bilateral Throughout] Respiratory 20 Rate Respiratory 20 Rate [Anterior Bilateral] Respiratory 20 Rate [Posterior Bilateral Throughout] Blood Pressure 136/72 O2 Sat by Pulse 100 Oximetry Constitutional: no acute distress, alert, other (middle aged mobidly obese female with mildly increased resp effort at rest) Eyes: non-icteric ENT: oropharynx moist, other (+ large neck circumference) Neck: supple, no JVD Effort: mildly labored Ascultation: Bilateral: diminished breath sounds Percussion: Bilateral: not dull Cardiovascular: regular rate and rhythm Gastrointestinal: normoactive bowel sounds, soft, non-tender, non-distended Integumentary: normal Extremities: no cyanosis, no edema, pulses normal, no ischemia or petechiae Neurologic: normal mental status, non-focal exam, pupils equal and round, CN II- XII normal, motor strength normal and Psychiatric: mood appropriate, affect normal CBC and BMP: 05/15/19 06:26 05/15/19 06:26 ABG, PT/INR, D-dimer: ABG POC ABG pH 7.614 (7.35-7.45) H 05/09/19 07:43 POC ABG pCO2 29.6 (35-45) L 05/09/19 07:43 POC ABG pO2 196 (80-105) H 05/09/19 07:43 POC ABG HCO3 30.0 (22-26 mml/L) 05/09/19 07:43 POC ABG Total CO2 31 (23-27mmol/L) 05/09/19 07:43 POC ABG O2 Sat 100 05/09/19 07:43 PT/INR, D-dimer PT 12.0 Sec. (12.2-14.9) L 05/15/19 06:26 INR 0.89 (0.87-1.13) 05/15/19 06:26 Abnormal lab findings: Abnormal Labs 05/09/19 05/09/19 05/09/19 07:31 07:31 07:43 WBC 12.7 H MCH 26 L RDW 16.6 H Lymph % (Auto) [place] # 0.9 H Seg Neutrophils % Seg Neutrophils # PT POC ABG pH 7.614 H POC ABG pCO2 29.6 L POC ABG pO2 196 H Potassium 3.3 L Chloride Carbon Dioxide BUN 19 H Creatinine Glucose NT-Pro-B Natriuret Pep 675.1 H 05/10/19 05/10/19 05/12/19 06:17 06:17 14:25 WBC 16.8 H MCH 26 L RDW 16.2 H Lymph % (Auto) 7.1 L [place] # Seg Neutrophils % 88.9 H Seg Neutrophils # 14.9 H PT POC ABG pH POC ABG pCO2 POC ABG pO2 Potassium Chloride 97.4 L Carbon Dioxide BUN 22 H 28 H Creatinine 0.5 L 0.6 L Glucose 138 H 113 H NT-Pro-B Natriuret Pep 05/13/19 05/13/19 05/15/19 05:31 05:31 06:26 WBC 13.4 H 16.3 H MCH 26 L 26 L RDW 16.2 H 16.1 H Lymph % (Auto) 12.0 L [place] # 0.9 H Seg Neutrophils % 82.0 H Seg Neutrophils # 13.3 H PT POC ABG pH POC ABG pCO2 POC ABG pO2 Potassium Chloride 97.0 L Carbon Dioxide 33 H BUN 30 H Creatinine Glucose 134 H NT-Pro-B Natriuret Pep 05/15/19 05/15/19 06:26 06:26 WBC MCH RDW Lymph % (Auto) [place] # Seg Neutrophils % Seg Neutrophils # PT 12.0 L POC ABG pH POC ABG pCO2 POC ABG pO2 Potassium Chloride 95.9 L Carbon Dioxide 33 H BUN 33 H Creatinine 0.6 L Glucose 109 H NT-Pro-B Natriuret Pep Allied health notes reviewed: nursing
[2019-05-18] MEDS: AZITHROMYCIN 250 MG TAB PO SCH (21:55)
[2019-05-19] MEDS: ZOLPIDEM 5 MG TAB PO PRN (00:20)
[2019-05-19] MEDS: HEPARIN 5,000 UNIT/1 ML VIAL SUB-Q SCH (06:17)
[2019-05-19] MEDS: ACETAMINOPHEN 325 MG TAB PO PRN (06:21)
[2019-05-19] MEDS: IPRATROPIUM/ALBUTEROL SULFATE 3 ML AMPUL.NEB IH SCH ×2 (08:14→15:24)
[2019-05-19 08:23] VITALS: BP 139/79
[2019-05-19] MEDS: metFORMIN 500 MG TAB PO SCH (09:02)
[2019-05-19] MEDS: ASPIRIN 81 MG TAB CHEW PO SCH (09:02)
[2019-05-19] MEDS: NICOTINE 14 MG/24 HR PATCH TD SCH (09:02)
[2019-05-19] MEDS: hydroCHLOROthiazide 12.5 MG CAP PO SCH (09:02)
[2019-05-19] MEDS: FAMOTIDINE 20 MG TAB PO SCH (09:02)
[2019-05-19] MEDS: METOPROLOL SUCCINATE XL 25 MG TAB PO SCH (09:03)
[2019-05-19] MEDS: AZITHROMYCIN 250 MG TAB PO SCH (09:03)
[2019-05-19] MEDS: diazePAM 2 MG TAB PO SCH ×2 (09:06→14:59)
== END 2019-05-19 16:56 | disposition home or self-care (01) | DRG 286 ==
LOC: ED 06:59 → 4A 09:19
PROVIDERS: ADMIT Internal Medicine; ATTEND Internal Medicine
PROC: 4A033R1 Measurement of Arterial Saturation, Peripheral, Percutaneous Approach (ICD-10-PCS; 2019-05-09)
PROC: 5A09357 Assistance with Respiratory Ventilation, Less than 24 Consecutive Hours, Continuous Positive Airway Pressure (ICD-10-PCS; 2019-05-09)
PROC: 5A09357 Assistance with Respiratory Ventilation, Less than 24 Consecutive Hours, Continuous Positive Airway Pressure (ICD-10-PCS; 2019-05-10)
PROC: 5A09357 Assistance with Respiratory Ventilation, Less than 24 Consecutive Hours, Continuous Positive Airway Pressure (ICD-10-PCS; 2019-05-11)
PROC: 5A09357 Assistance with Respiratory Ventilation, Less than 24 Consecutive Hours, Continuous Positive Airway Pressure (ICD-10-PCS; 2019-05-12)
PROC: 4A023N7 Measurement of Cardiac Sampling and Pressure, Left Heart, Percutaneous Approach (ICD-10-PCS; principal; 2019-05-15)
PROC: B2111ZZ Fluoroscopy of Multiple Coronary Arteries using Low Osmolar Contrast (ICD-10-PCS; 2019-05-15)
PROC: B2151ZZ Fluoroscopy of Left Heart using Low Osmolar Contrast (ICD-10-PCS; 2019-05-15)
PROC: 3E0234Z Introduction of Serum, Toxoid and Vaccine into Muscle, Percutaneous Approach (ICD-10-PCS; 2019-05-15)
PROC: 5A09357 Assistance with Respiratory Ventilation, Less than 24 Consecutive Hours, Continuous Positive Airway Pressure (ICD-10-PCS; 2019-05-16)
DX: I11.0 Hypertensive heart disease with heart failure (principal); J96.21 Acute and chronic respiratory failure with hypoxia; J44.1 Chronic obstructive pulmonary disease with (acute) exacerbation; I50.33 Acute on chronic diastolic (congestive) heart failure; I47.2 Ventricular tachycardia; E87.6 Hypokalemia; E66.2 Morbid (severe) obesity with alveolar hypoventilation; D72.829 Elevated white blood cell count, unspecified; Z23 Encounter for immunization; Z68.41 Body mass index [BMI] 40.0-44.9, adult; Z87.891 Personal history of nicotine dependence; Z91.041 Radiographic dye allergy status; Z91.013 Allergy to seafood; Z79.51 Long term (current) use of inhaled steroids; Z79.899 Other long term (current) drug therapy; Z79.84 Long term (current) use of oral hypoglycemic drugs; Z82.49 Family history of ischemic heart disease and other diseases of the circulatory system; Z83.3 Family history of diabetes mellitus; Z91.19 Patient's noncompliance with other medical treatment and regimen
CPT/HCPCS: 36415; 71045; 78452; 80048; 80053; 81025; 82164; 82803; 82962; 83735; 83880; 84484; 85025; 85027; 85610; 87116; 90670; 93005; 93010; 93017; 93458; 93567; 94640; 94644; 94660; 94760; 96360; 96374; 96375; G0378; A9502; C1894; J1200; J1644; J1940; J2250; J2405; J2785; J2920; J2930; J3010; J3475; J7040; Q9967

== ENCOUNTER 2019-05-30 05:59 | Emergency (ER) | payer MEDICAID ==
[2019-05-30] MEDS ORDERED: SODIUM CHLORIDE 0.9% 250ML 250 ML IV ONE (06:20)
[2019-05-30] MEDS ORDERED: MIDAZOLAM 5 MG/5 ML INJ MDV IV ONE (06:20)
--- NOTE | 2019-05-30 06:21 | Emergency Department Report ---
ED General Adult HPI - General Chief complaint: Dyspnea/Respdistress Stated complaint: SOB Time Seen by Provider: 05/30/19 06:03 Source: patient, EMS ( EMS documentation not available at time of chart dictation ), RN notes reviewed Mode of arrival: Stretcher Limitations: No Limitations - History of Present Illness Initial comments: Verbal report received from emergency medical services This is a 43-year-old female. I have evaluated this patient in the past. Currently, she follows with outpatient pulmonology, Dr. Maya History includes COPD, question sarcoid, morbid obesity, home oxygen dependence, 4 L, anxiety. Patient recently admitted to the medical service for COPD exacerbation, sarcoid, and acute on chronic respiratory failure. She had an extensive and thorough workup and evaluation, including a cardiac catheterization which basically showed unremarkable coronary arteries, or dissection, and ejection fraction of 50-55% Today, the patient is brought to the hospital by emergency medical services for painless shortness of breath. Uncertain if patient was wheezing in the field, however, they started her on CPAP, gave 20 of Decadron, and 5 of albuterol. On minus on my initial evaluation, the patient is not wheezing. She denies physical pain. She complains of shortness of breath. She indicates that it is constant. She makes no complaint of pain. Shortness of breath worsens with physical exertion and decreases with rest. She denies urinary symptoms, abdominal pain, hematemesis, and bright red blood per rectum. -: Gradual, Sudden Severity scale (0 -10): 0 Quality: other Consistency: other Improves with: other Worsens with: other - Related Data Home Medications Medication Instructions Recorded Confirmed Last Taken Ibuprofen [Motrin 800 MG tab] 800 mg PO Q8HR PRN 09/29/18 05/09/19 Unknown Aspirin 325 mg PO QDAY 02/15/19 05/09/19 05/08/19 10:00 Phentermine HCl 37.5 mg PO QAM 02/15/19 05/09/19 Unknown diazePAM TAB [Valium] 1 mg PO TID 05/07/19 05/09/19 05/06/19 22:00 Previous Rx's Medication Instructions Recorded Last Taken Type ALBUTEROL Inhaler (OR & NICU) 2 puff IH QID PRN 30 Days 02/17/19 05/09/19 05:30 Rx [ProAir HFA Inhaler] inhalation Metoprolol Xl [Metoprolol 25 mg PO QDAY #30 tablet 02/17/19 05/08/19 10:00 Rx SUCCINATE ER TAB] Naproxen [Naprosyn TAB] 500 mg PO BID PRN #10 tablet 02/17/19 05/08/19 10:00 Rx hydroCHLOROthiazide [HCTZ] 12.5 mg PO DAILY #30 tablet 02/17/19 05/08/19 10:00 Rx metFORMIN [Glucophage] 500 mg PO BID #30 tablet 02/17/19 05/07/19 10:00 Rx ALBUTEROL NEB's [Proventil 0.083% 5 mg IH TID PRN #90 neb 05/18/19 Unknown Rx NEBS] Fluticasone/Vilanterol [Breo 1 each IH BID #1 blst.w.dev 05/18/19 Unknown Rx Ellipta 200-25 Mcg INH] Ipratropium/Albuterol Sulfate 1 ampul IH QIDRT #90 ampul.neb 05/18/19 Unknown Rx [DUONEB *Not for PRN Use*] Prednisone [predniSONE 10 mg 10 mg PO .TAPER #1 tab.ds.pk 05/18/19 Unknown Rx (6-Day Pack, 21 Tabs)] Tiotropium [place] [Spiriva 1 each IH DAILY #1 mist.inhal 05/18/19 Unknown Rx Respimat] hydroCHLOROthiazide [HCTZ] 12.5 mg PO QDAY #90 capsule 05/18/19 Unknown Rx Allergies Allergy/AdvReac Type Severity Reaction Status Date / Time iodine Allergy Rash Verified 05/07/19 16:02 shellfish derived Allergy Rash Verified 05/07/19 16:02 ED Review of Systems ROS: Stated complaint: SOB Other details as noted in HPI Constitutional: weakness. denies: fever ENT: congestion Respiratory: shortness of breath Cardiovascular: denies: syncope Gastrointestinal: denies: abdominal pain, hematemesis, melena, hematochezia Genitourinary: denies: dysuria Musculoskeletal: myalgia Skin: denies: lesions Neurological: weakness Psychiatric: anxiety Hematological/Lymphatic: easy bleeding ED Past Medical Hx - Past Medical History Previous Medical History?: Yes Hx Hypertension: Yes Hx Congestive Heart Failure: Yes Hx Diabetes: No Hx Sickle Cell Disease: No Hx Arthritis: Yes Hx Asthma: Yes Hx COPD: Yes Hx HIV: No Additional medical history: Sleep Apnea,.Morbid Obesity - Surgical History Past Surgical History?: Yes Additional Surgical History: x 3, orthopedic (arch replacement) [facility] 05/17/19 - Social History Smoking Status: Former Smoker Substance Use Type: Alcohol - Medications Home Medications: Home Medications Medication Instructions Recorded Confirmed Last Taken Type Ibuprofen [Motrin 800 MG tab] 800 mg PO Q8HR PRN 09/29/18 05/09/19 Unknown History Aspirin 325 mg PO QDAY 02/15/19 05/09/19 05/08/19 10:00 History Phentermine HCl 37.5 mg PO QAM 02/15/19 05/09/19 Unknown History ALBUTEROL Inhaler (OR & NICU) 2 puff IH QID PRN 30 Days 02/17/19 05/09/19 05/09/19 05:30 Rx [ProAir HFA Inhaler] inhalation Metoprolol Xl [Metoprolol 25 mg PO QDAY #30 tablet 02/17/19 05/09/19 05/08/19 10:00 Rx SUCCINATE ER TAB] Naproxen [Naprosyn TAB] 500 mg PO BID PRN #10 tablet 02/17/19 05/09/19 05/08/19 10:00 Rx hydroCHLOROthiazide [HCTZ] 12.5 mg PO DAILY #30 tablet 02/17/19 05/09/19 05/08/19 10:00 Rx metFORMIN [Glucophage] 500 mg PO BID #30 tablet 02/17/19 05/09/19 05/07/19 10:00 Rx diazePAM TAB [Valium] 1 mg PO TID 05/07/19 05/09/19 05/06/19 22:00 History ALBUTEROL NEB's [Proventil 0.083% 5 mg IH TID PRN #90 neb 05/18/19 Unknown Rx NEBS] Fluticasone/Vilanterol [Breo 1 each IH BID #1 blst.w.dev 05/18/19 Unknown Rx Ellipta 200-25 Mcg INH] Ipratropium/Albuterol Sulfate 1 ampul IH QIDRT #90 ampul.neb 05/18/19 Unknown Rx [DUONEB *Not for PRN Use*] Prednisone [predniSONE 10 mg 10 mg PO .TAPER #1 tab.ds.pk 05/18/19 Unknown Rx (6-Day Pack, 21 Tabs)] Tiotropium [place] [Spiriva 1 each IH DAILY #1 mist.inhal 05/18/19 Unknown Rx Respimat] hydroCHLOROthiazide [HCTZ] 12.5 mg PO QDAY #90 capsule 05/18/19 Unknown Rx ED Physical Exam - General Limitations: No Limitations General appearance: alert, anxious, obese - Head Head exam: Present: atraumatic, normocephalic - Eye Eye exam: Present: normal appearance, EOMI. Absent: nystagmus - ENT ENT exam: Present: normal exam, normal orophraynx, mucous membranes moist, normal external ear exam - Neck Neck exam: Present: normal inspection, full ROM - Respiratory Respiratory exam: Present: normal lung sounds bilaterally, decreased breath sounds. Absent: respiratory distress - Cardiovascular Cardiovascular Exam: Present: regular rate, normal rhythm, normal heart sounds. Absent: bradycardia, tachycardia, irregular rhythm, systolic murmur, diastolic murmur, rubs, gallop - GI/Abdominal GI/Abdominal exam: Present: soft. Absent: distended, tenderness, guarding, rebound, rigid, pulsatile mass - Rectal Rectal exam: Present: normal inspection, normal rectal tone, other (chaperoned by Naye Palacio). Absent: heme (-) stool, heme (+) stool, black stool, bloody stool, tenderness - Extremities Exam Extremities exam: Present: normal inspection, full ROM, other (2+ pulses noted in the bilateral upper, lower extremities. There is no long bone tenderness. Musculoskeletal compartments are soft. The pelvis is stable.). Absent: pedal edema, joint swelling, calf tenderness - Back Exam Back exam: Present: normal inspection, full ROM. Absent: tenderness, CVA tenderness (R), CVA tenderness (L), paraspinal tenderness, vertebral tenderness - Neurological Exam Neurological exam: Present: alert, other (there is no facial droop. The tongue is midline. Extraocular movements are intact bilaterally. Patient speaking in full complete sentences. Shoulder shrug is intact bilaterally. Hearing is grossly intact bilaterally. Visual acuity intact to finger counting and color perception at a close distance. 5/5 strength 4 extremities. Sensation intact to light touch in 4 extremities.). Absent: motor sensory deficit - Psychiatric Psychiatric exam: Present: anxious - Skin Skin exam: Present: warm, dry, intact, normal color. Absent: rash ED Course Vital Signs 05/30/19 05/30/19 05/30/19 06:04 06:05 06:06 Temperature 97.7 F Pulse Rate 84 85 84 Respiratory 21 20 46 H Rate Blood Pressure 130/65 130/65 Blood Pressure 130/65 [Left] O2 Sat by Pulse 100 100 Oximetry 05/30/19 05/30/19 05/30/19 07:00 08:01 09:36 Temperature Pulse Rate 86 82 72 Respiratory 16 15 16 Rate Blood Pressure 136/72 142/77 Blood Pressure 124/84 [Left] O2 Sat by Pulse 98 99 100 Oximetry - Reevaluation(s) Reevaluation #1: 05/30/19 07:24 Differential diagnosis, including but not limited to: COPD, obstructive sleep apnea, pulmonary hypertension, anxiety, pneumonia, pulmonary embolism Assessment and plan: 43-year-old female with multiple comorbidities, including morbid obesity, question sarcoid, chronic respiratory failure on home oxygen, on home CPAP, now with resolved shortness of breath. Her tachypnea has resolved. She is currently engaged in playing with his cellular phone. She is afebrile with reassuring vital signs. No active vomiting at this time. No active wheezing at this time. Guaiac-negative on rectal examination. Had a recent cardiac risk stratification at this hospital. Screening laboratory studies since to risk stratify patient for pulmonary embolism, given her recent hospitalization. However, I find the patient to be low risk by well's criteria, and in addition, she is also perc negative most likely, the patient experienced the natural history of her underlying multiple respiratory comorbidities, which appear to be medically improved at this time. Reevaluation #2: 05/30/19 07:41 " iodine allergy" reviewed, non specific. [facility] has already received decadron will give pepcid benadryl will be held giving sedating affect and she has been given versed 05/30/19 09:50 Reevaluation #3: 05/30/19 09:50 Patient received a nuclear medicine study as I find her to be low risk for pulmonary embolism, and CT scanner was being utilized or patient's with higher acuity. I think a pulmonary embolism is unlikely at this time, and the nuclear medicine study was found to be low probability. Patient is speaking on a cellular phone at this time, and she is in no acute distress. She is also asking for a snack bag. Her vital signs have improved. The patient does not meet criteria for hospitalization at this time. She'll need to follow-up with her outpatient church worker. ED Medical Decision Making - Lab Data Result diagrams: 05/30/19 06:32 05/30/19 06:32 Vital Signs 05/30/19 05/30/19 06:04 06:06 Temperature 97.7 F Pulse Rate 84 84 Respiratory 21 46 H Rate Blood Pressure 130/65 130/65 Blood Pressure 130/65 [Left] O2 Sat by Pulse 100 100 Oximetry Lab Results 05/30/19 05/30/19 Range/Units 06:32 06:32 WBC 5.0 (4.5-11.0) K/mm3 RBC 3.57 L (3.65-5.03) M/mm3 Hgb 9.6 L (10.1-14.3) gm/dl Hct 29.6 L (30.3-42.9) % MCV 83 (79-97) fl MCH 27 L (28-32) pg MCHC 32 (30-34) % RDW 17.4 H (13.2-15.2) % Plt Count 185 (140-440) K/mm3 PT 12.7 (12.2-14.9) Sec. INR 0.96 (0.87-1.13) - EKG Data -: EKG Interpreted by Me EKG shows normal: sinus rhythm Rate: normal - EKG Data When compared to previous EKG there are: no significant change Interpretation: unchanged when compared t (03/09/2019) 05/30/19 07:23 The EKG today shows a sinus rhythm, 81 beats for minute, normal axis, poor r wave progression, motion artifact, the EKG is not consistent with a STEMI - Radiology Data Radiology results: pending, report reviewed, image reviewed Critical care attestation.: If time is entered above; I have spent that time in minutes in the direct care of this critically ill patient, excluding procedure time. ED Disposition Clinical Impression: Dyspnea, COPD (chronic obstructive pulmonary disease), Morbid obesity Disposition: DC-01 TO HOME OR SELFCARE Is pt being admited?: No Does the pt Need Aspirin: No Condition: Stable Instructions: Chronic Obstructive Pulmonary Disease (ED) Additional Instructions: Continue current outpatient medicines, home CPAP/BiPAP therapy, and home oxygen therapy. Recommend physical activities as tolerated, and aggressive weight loss to improve lifestyle, and symptoms. Recommend follow-up with patient's outpatient primary care doctor or church worker within the next 7-10 days. Return to the emergency room right away with projectile vomiting, change in mental status, confusion, inability to tolerate liquid feeds, new, worsened or different symptoms not present on the initial emergency room evaluation. Referrals: MOISES MACDONALD MD [Primary Care Provider] - 3-5 Days HERMAN MAYA MD [Staff Physician] - 7-10 days
[2019-05-30 07:09] LABS: Hematocrit 29.6 % (30.3-42.9); Hemoglobin 9.6 gm/dl (10.1-14.3); Mean Corpuscular HGB Conc 32 % (30-34); Mean Corpuscular Volume 83 fl (79-97); Platelet Count 185 K/mm3 (140-440); Red Blood Count 3.57 M/mm3 (3.65-5.03); Red Cell Distribution Width 17.4 % (13.2-15.2)
[2019-05-30 07:22] LABS: INR 0.96 (0.87-1.13)
[2019-05-30 07:26] LABS: BUN/Creatinine Ratio 24; Blood Urea Nitrogen 12 mg/dL (7-17); Calcium 8.5 mg/dL (8.4-10.2); Hemolysis Index 2
[2019-05-30] MEDS ORDERED: POTASSIUM CHLORIDE ER 20 MEQ TAB PO ONE (07:36)
[2019-05-30] MEDS ORDERED: FAMOTIDINE 20 MG/2 ML INJ IV ONE (07:42)
--- NOTE | 2019-05-30 08:02 | XRay Report ---
CHEST 1 VIEW INDICATION: Shortness of breath. Difficulty in breathing and chest tightness with ambulation. COMPARISON: 05/11/2019 FINDINGS: Support devices: None. Heart: Within normal limits. Lungs/Pleura: No acute air space or interstitial disease. Additional findings: None. IMPRESSION: No acute findings. Signer Name: Lakhwinder Mccabe Jr, MD Signed: 05/30/2019 7:58 AM Workstation Name: [id number]
--- NOTE | 2019-05-30 09:33 | Nuclear Medicine Report ---
NM lung scan perf/vent INDICATION / CLINICAL INFORMATION: cp sob + d dimer. TRACER: Xenon-133 gas 16.3 mCi inhalation and technetium 99m MAA 4.5 mCi IV injection. COMPARISON: 05/30/2019. FINDINGS: Nuclear medicine ventilation and perfusion lung imaging were performed. Both are relatively homogeneo us. Negative for suspicious ventilation or perfusion defect. IMPRESSION: Low probability for pulmonary embolus. Signer Name: Herson Castillo MD Signed: 05/30/2019 9:29 AM Workstation Name: [id number]
[2019-05-30 09:37] VITALS: BP 124/84
== END 2019-05-30 10:30 | disposition home or self-care (01) ==
LOC: ED 05:59
DX: J44.9 Chronic obstructive pulmonary disease, unspecified (principal); E66.01 Morbid (severe) obesity due to excess calories; I10 Essential (primary) hypertension; I50.9 Heart failure, unspecified; M19.90 Unspecified osteoarthritis, unspecified site; J45.909 Unspecified asthma, uncomplicated; Z98.890 Other specified postprocedural states; Z87.891 Personal history of nicotine dependence; Z79.1 Long term (current) use of non-steroidal anti-inflammatories (NSAID); Z79.899 Other long term (current) drug therapy; Z91.013 Allergy to seafood; Z88.8 Allergy status to other drugs, medicaments and biological substances
CPT/HCPCS: 36415; 71045; 78582; 80048; 82271; 82550; 83735; 84702; 85027; 85379; 85610; 93005; 93010; 96374; 96375; 99285; A9540; A9558; J2250; J7050

== ENCOUNTER 2019-06-04 09:23 | Emergency (ER) | payer MEDICAID ==
--- NOTE | 2019-06-04 09:57 | Emergency Department Report ---
ED Shortness of Breath HPI - General Stated Complaint: DIANNA Time Seen by Provider: 06/04/19 09:44 Source: patient Mode of arrival: Stretcher Limitations: No Limitations - History of Present Illness Initial Comments: 43-year-old female the past medical history COPD, obstructive sleep apnea currently on CPAP, obesity, possible sarcoidosis, and history of smoking presents to the hospital complaining of shortness of breath worsening this morning. Patient states she was short of breath with exertion after getting out of the shower but thinks she's been short of breath the last several days. She also complains of lower extremity edema left greater than right which has improved since legs elevated in the ED. She denies cough, chest pain, fever, or calf tenderness other than tightness associated with swelling. Patient has had multiple admissions in May for shortness of breath related complaints. She had a low probability VQ scan during ED visit on May 30. In May she's had a cardiac cath showing coronary arteries and EF of 50-55% and CT chest showing faint bilateral ground glass densities which could be associated with diffuse infectious or inflammatory process and mildly prominent but nonpathologic enlargement spinal lymph nodes which may be reactive. She was also started all 4 L of home oxygen May. She states she's been trying to wean herself off the oxygen. She is currently satting 99-100% on room air without any signs of respiratory distress. Patient states she feels like she has fluid in her lungs as opposed to COPD exacerbation. Neurologist: Dr. Guzmán - Related Data Home Medications Medication Instructions Recorded Confirmed Last Taken Ibuprofen [Motrin 800 MG tab] 800 mg PO Q8HR PRN 09/29/18 05/09/19 Unknown Aspirin 325 mg PO QDAY 02/15/19 05/09/19 05/08/19 10:00 Phentermine HCl 37.5 mg PO QAM 02/15/19 05/09/19 Unknown diazePAM TAB [Valium] 1 mg PO TID 05/07/19 05/09/19 05/06/19 22:00 Previous Rx's Medication Instructions Recorded Last Taken Type ALBUTEROL Inhaler (OR & NICU) 2 puff IH QID PRN 30 Days 02/17/19 05/09/19 05:30 Rx [ProAir HFA Inhaler] inhalation Metoprolol Xl [Metoprolol 25 mg PO QDAY #30 tablet 02/17/19 05/08/19 10:00 Rx SUCCINATE ER TAB] Naproxen [Naprosyn TAB] 500 mg PO BID PRN #10 tablet 02/17/19 05/08/19 10:00 Rx hydroCHLOROthiazide [HCTZ] 12.5 mg PO DAILY #30 tablet 02/17/19 05/08/19 10:00 R x metFORMIN [Glucophage] 500 mg PO BID #30 tablet 02/17/19 05/07/19 10:00 Rx ALBUTEROL NEB's [Proventil 0.083% 5 mg IH TID PRN #90 neb 05/18/19 Unknown Rx NEBS] Fluticasone/Vilanterol [Breo 1 each IH BID #1 blst.w.dev 05/18/19 Unknown Rx Ellipta 200-25 Mcg INH] Ipratropium/Albuterol Sulfate 1 ampul IH QIDRT #90 ampul.neb 05/18/19 Unknown Rx [DUONEB *Not for PRN Use*] Prednisone [predniSONE 10 mg 10 mg PO .TAPER #1 tab.ds.pk 05/18/19 Unknown Rx (6-Day Pack, 21 Tabs)] Tiotropium [place] [Spiriva 1 each IH DAILY #1 mist.inhal 05/18/19 Unknown Rx Respimat] hydroCHLOROthiazide [HCTZ] 12.5 mg PO QDAY #90 capsule 05/18/19 Unknown Rx Albuterol Sulfate [Proair 90 mcg IH Q4HR PRN #2 aer.pow.ba 05/30/19 Unknown Rx Respiclick] predniSONE [Deltasone] 40 mg PO QDAY #8 tab 05/30/19 Unknown Rx Allergies Allergy/AdvReac Type Severity Reaction Status Date / Time iodine Allergy Rash Verified 05/07/19 16:02 shellfish derived Allergy Rash Verified 05/07/19 16:02 ED Review of Systems ROS: Stated complaint: DIANNA Other details as noted in HPI Comment: All other systems reviewed and negative ED Past Medical Hx - Past Medical History Hx Hypertension: Yes Hx Congestive Heart Failure: Yes Hx Diabetes: No Hx Sickle Cell Disease: No Hx Arthritis: Yes Hx Asthma: Yes Hx COPD: Yes Hx HIV: No Additional medical history: Sleep Apnea,.Morbid Obesity - Surgical History Additional Surgical History: x 3, orthopedic (arch replacement) [facility] 05/17/19 - Social History Smoking Status: Former Smoker Substance Use Type: Alcohol - Medications Home Medications: Home Medications Medication Instructions Recorded Confirmed Last Taken Type Ibuprofen [Motrin 800 MG tab] 800 mg PO Q8HR PRN 09/29/18 05/09/19 Unknown History Aspirin 325 mg PO QDAY 02/15/19 05/09/19 05/08/19 10:00 History Phentermine HCl 37.5 mg PO QAM 02/15/19 05/09/19 Unknown History ALBUTEROL Inhaler (OR & NICU) 2 puff IH QID PRN 30 Days 02/17/19 05/09/19 05/09/19 05:30 Rx [ProAir HFA Inhaler] inhalation Metoprolol Xl [Metoprolol 25 mg PO QDAY #30 tablet 02/17/19 05/09/19 05/08/19 10:00 Rx SUCCINATE ER TAB] Naproxen [Naprosyn TAB] 500 mg PO BID PRN #10 tablet 02/17/19 05/09/19 05/08/19 10:00 Rx hydroCHLOROthiazide [HCTZ] 12.5 mg PO DAILY #30 tablet 02/17/19 05/09/19 05/08/19 10:00 Rx metFORMIN [Glucophage] 500 mg PO BID #30 tablet 02/17/19 05/09/19 05/07/19 10:00 Rx diazePAM TAB [Valium] 1 mg PO TID 05/07/19 05/09/19 05/06/19 22:00 History ALBUTEROL NEB's [Proventil 0.083% 5 mg IH TID PRN #90 neb 05/18/19 Unknown Rx NEBS] Fluticasone/Vilanterol [Breo 1 each IH BID #1 blst.w.dev 05/18/19 Unknown Rx Ellipta 200-25 Mcg INH] Ipratropium/Albuterol Sulfate 1 ampul IH QIDRT #90 ampul.neb 05/18/19 Unknown Rx [DUONEB *Not for PRN Use*] Prednisone [predniSONE 10 mg 10 mg PO .TAPER #1 tab.ds.pk 05/18/19 Unknown Rx (6-Day Pack, 21 Tabs)] Tiotropium [place] [Spiriva 1 each IH DAILY #1 mist.inhal 05/18/19 Unknown Rx Respimat] hydroCHLOROthiazide [HCTZ] 12.5 mg PO QDAY #90 capsule 05/18/19 Unknown Rx Albuterol Sulfate [Proair 90 mcg IH Q4HR PRN #2 aer.pow.ba 05/30/19 Unknown Rx Respiclick] predniSONE [Deltasone] 40 mg PO QDAY #8 tab 05/30/19 Unknown Rx ED Physical Exam - Other Other exam information: General: No acute distress Head: Atraumatic Eyes: normal appearance ENT: Moist mucous membranes Neck: Normal appearance, no midline tenderness Chest: Clear to auscultation bilaterally no tachypnea, accessory muscle use CV: Regular rate and rhythm Abdomen: Soft, normal bowel sounds, nontender, nondistended, no rebound or guarding Back: Normal inspection Extremity: Normal inspection infection, full range of motion, mild bilateral lower extremity edema without calf tenderness Neuro: Alert O x 3, no facial asymmetry, speech clear, no gross motor sensory deficit Psych: Appropriate behavior Skin: No rash ED Course Vital Signs 06/04/19 06/04/19 06/04/19 09:45 10:09 10:10 Temperature 98.1 F 98.1 F Pulse Rate 87 87 87 Respiratory 16 16 16 Rate Blood Pressure 145/88 135/90 Blood Pressure 135/90 [Left] O2 Sat by Pulse 97 97 97 Oximetry 06/04/19 06/04/19 11:36 12:08 Temperature Pulse Rate 86 Respiratory 19 Rate Blood Pressure 141/94 Blood Pressure 135/91 [Left] O2 Sat by Pulse 100 97 Oximetry - Reevaluation(s) Reevaluation #1: 06/04/19 13:02 pt states she feels better after lasix ED Medical Decision Making - Lab Data Result diagrams: 06/04/19 09:59 06/04/19 09:59 Lab Results 06/04/19 06/04/19 Range/Units 09:59 09:59 WBC 6.2 (4.5-11.0) K/mm3 RBC 3.85 (3.65-5.03) M/mm3 Hgb 10.2 (10.1-14.3) gm/dl Hct 31.7 (30.3-42.9) % MCV 82 (79-97) fl MCH 26 L (28-32) pg MCHC 32 (30-34) % RDW 16.9 H (13.2-15.2) % Plt Count 212 (140-440) K/mm3 Lymph % (Auto) 24.2 (13.4-35.0) % [place] % (Auto) 3.8 (0.0-7.3) % Eos % (Auto) 2.8 (0.0-4.3) % Baso % (Auto) 0.7 (0.0-1.8) % Lymph # 1.5 (1.2-5.4) K/mm3 [place] # 0.2 (0.0-0.8) K/mm3 Eos # 0.2 (0.0-0.4) K/mm3 Baso # 0.0 (0.0-0.1) K/mm3 Seg Neutrophils % 68.5 (40.0-70.0) % Seg Neutrophils # 4.2 (1.8-7.7) K/mm3 Sodium 140 (137-145) mmol/L Potassium 3.8 (3.6-5.0) mmol/L Chloride 103.0 (98-107) mmol/L Carbon Dioxide 22 (22-30) mmol/L Anion Gap 19 mmol/L BUN 18 H (7-17) mg/dL Creatinine 0.5 L (0.7-1.2) mg/dL Estimated GFR > 60 ml/min BUN/Creatinine Ratio 36 % Glucose 97 (65-100) mg/dL Calcium 8.8 (8.4-10.2) mg/dL Troponin T < 0.010 (0.00-0.029) ng/mL NT-Pro-B Natriuret Pep 782.0 H (0-450) pg/mL - EKG Data -: EKG Interpreted by [facility] EKG shows normal: sinus rhythm, ST-T waves (no stmei) Rate: normal (84) - Radiology Data Radiology results: report reviewed CHEST 2 VIEWS INDICATION / CLINICAL INFORMATION: sob. COMPARISON: Chest radiograph 05/30/2019 FINDINGS: SUPPORT DEVICES: None. HEART / MEDIASTINUM: No significant abnormality. LUNGS / PLEURA: No significant pulmonary or pleural abnormality. No pneumothorax. ADDITIONAL FINDINGS: No significant additional findings. IMPRESSION: 1. No acute findings. DUPLEX DOPPLER LOWER EXTREMITY VEINS, BILATERAL INDICATION: leg edema L> R. TECHNIQUE: Duplex doppler imaging was performed through the veins of both lower extremities using venous compression and other maneuvers. COMPARISON: No relevant prior imaging study available. FINDINGS: Right Common femoral vein: Negative. Right Superficial femoral vein: Negative. Right Popliteal vein: Negative. Right Calf veins: Negative. Left Common femoral vein: Negative. Left Superficial femoral vein: Negative. Left Popliteal vein: Negative. Left Calf veins: Negative. Additional findings: None.. IMPRESSION: 1. No sonographic evidence for DVT in either lower extremity. - Medical Decision Making ed workup unremarkabe recent neg vq scan clear lung sounds normal pulse ox pt has leg edema likely from r heart strain secondary to chronic lung dz neg dvt study b/l legs pt received lasix 40mg IV x1 and po KCL 40meq x1 will be encouraged to f/u with her doctors. States she has several apts scheduled this week. pt has an anointment with her bell valet tomorrow. Encouragd to ask about increasing her hydrochlorothiazide dose (currently on 12.5mg) - Differential Diagnosis COPD, CHF, disease, anxiety, sleep apnea, sarcoidosis Critical Care Time: No Critical care attestation.: If time is entered above; I have spent that time in minutes in the direct care of this critically ill patient, excluding procedure time. ED Disposition Clinical Impression: Leg edema, COPD (chronic obstructive pulmonary disease) Disposition: DC- TO HOME OR SELFCARE Is pt being admited?: No Does the pt Need Aspirin: No Condition: Stable Instructions: Chronic Obstructive Pulmonary Disease (ED), Leg Edema (ED) Additional Instructions: Follow-up with your doctors as scheduled. Return if symptoms worsen as indicated by your discharge instructions. Referrals: your, doctor [Other] - 3-5 Days Time of Disposition: 13:09
[2019-06-04 10:23] LABS: Basophils % (Auto) 0.7 % (0.0-1.8); Eosinophils # (Auto) 0.2 K/mm3 (0.0-0.4); Eosinophils % (Auto) 2.8 % (0.0-4.3); Hematocrit 31.7 % (30.3-42.9); Hemoglobin 10.2 gm/dl (10.1-14.3); Lymphocytes # (Auto) 1.5 K/mm3 (1.2-5.4); Lymphocytes % (Auto) 24.2 % (13.4-35.0); Mean Corpuscular HGB Conc 32 % (30-34); Mean Corpuscular Volume 82 fl (79-97); Monocytes # (Auto) 0.2 K/mm3 (0.0-0.8); Monocytes % (Auto) 3.8 % (0.0-7.3); Platelet Count 212 K/mm3 (140-440); Red Blood Count 3.85 M/mm3 (3.65-5.03); Red Cell Distribution Width 16.9 % (13.2-15.2)
[2019-06-04 10:39] LABS: BUN/Creatinine Ratio 36; Blood Urea Nitrogen 18 mg/dL (7-17); Calcium 8.8 mg/dL (8.4-10.2); Hemolysis Index 3
--- NOTE | 2019-06-04 11:45 | XRay Report ---
CHEST 2 VIEWS INDICATION / CLINICAL INFORMATION: sob. COMPARISON: Chest radiograph 05/30/2019 FINDINGS: SUPPORT DEVICES: None. HEART / MEDIASTINUM: No significant abnormality. LUNGS / PLEURA: No significant pulmonary or pleural abnormality. No pneumothorax. ADDITIONAL FINDINGS: No significant additional findings. IMPRESSION: 1. No acute findings. Signer Name: Lidia Dean MD Signed: 06/04/2019 11:41 AM Workstation Name: [id number]
--- NOTE | 2019-06-04 11:52 | Vascular Lab Report ---
DUPLEX DOPPLER LOWER EXTREMITY VEINS, BILATERAL INDICATION: leg edema L> R. TECHNIQUE: Duplex doppler imaging was performed through the veins of both lower extremities using venous les gaurav and other maneuvers. COMPARISON: No relevant prior imaging study available. FINDINGS: Right Common femoral vein: Negative. Right Superficial femoral vein: Negative. Right Popliteal vein: Negative. Right Calf veins: Negative. Left Common femoral vein: Negative. Left Superficial femoral vein: Negative. Left Popliteal vein: Negative. Left Calf veins: Negative. Additional findings: None.. IMPRESSION: 1. No sonographic evidence for DVT in either lower extremity. Signer Name: Terry Boothe MD Signed: 06/04/2019 11:47 AM Workstation Name: [id number]
[2019-06-04] MEDS ORDERED: POTASSIUM CHLORIDE ER 20 MEQ TAB PO ONE (12:14)
[2019-06-04] MEDS ORDERED: FUROSEMIDE 20 MG/2 ML INJ IV ONE (12:14)
[2019-06-04] MEDS ORDERED: FUROSEMIDE 40 MG/4 ML INJ IV ONE (12:18)
[2019-06-04 13:56] VITALS: BP 143/74
== END 2019-06-04 13:56 | disposition home or self-care (01) ==
LOC: ED 09:23
DX: J44.9 Chronic obstructive pulmonary disease, unspecified (principal); R60.0 Localized edema; I11.0 Hypertensive heart disease with heart failure; I50.9 Heart failure, unspecified; M19.90 Unspecified osteoarthritis, unspecified site; G47.30 Sleep apnea, unspecified; Z87.891 Personal history of nicotine dependence; Z79.899 Other long term (current) drug therapy; Z91.041 Radiographic dye allergy status; Z91.013 Allergy to seafood
CPT/HCPCS: 36415; 71046; 80048; 83880; 84484; 85025; 93005; 93010; 93970; 96374; 99285; J1940

== ENCOUNTER 2019-06-28 09:42 | Inpatient (IN) | payer MEDICAID ==
[2019-06-28] MEDS ORDERED: FUROSEMIDE 40 MG/4 ML INJ ONE (10:16)
[2019-06-28] MEDS ORDERED: NITROGLYCERIN 2% OINT 1 GM TP ONE ×2 (10:17→21:32)
[2019-06-28] MEDS ORDERED: FUROSEMIDE 40 MG/4 ML INJ IV ONE ×2 (10:17→10:20)
[2019-06-28] MEDS ORDERED: ALBUTEROL 2.5 MG/3 ML NEBU IH ONE ×2 (10:20)
[2019-06-28] MEDS ORDERED: IPRATROPIUM 0.02% NEBU 2.5 ML IH ONE ×2 (10:20)
[2019-06-28] MEDS ORDERED: MAGNESIUM SULFATE 2 GM/50 ML BAG IV ONE (10:40)
--- NOTE | 2019-06-28 10:40 | Emergency Department Report ---
ED Shortness of Breath HPI - General Chief Complaint: Adult Asthma Stated Complaint: RESPIRATORY DISTRESS Time Seen by Provider: 06/28/19 10:16 Source: patient, EMS Mode of arrival: Stretcher Limitations: No Limitations - History of Present Illness Initial Comments: Mrs. Rios is a 43 yo female with hx of asthma, COPD, JUDSON, tobacco abuse presents with severe shortness of breath. She used 6 nebulizer treatments prior to arrival according to EMS. Due to severe shortness of breath, hx from patient limited. She has hx of intubation. She wrote a note to EMS that she did not want to be intubated. According to EMR, severel admissions this year for acute on chronic respiratory failure. CHF ruled out Normal cardiac stress test and normal heart catheterization. LHC 05/15/19 EF 50-55%, no significant cad VQ scan 05/30/19 low probability for pulmonary embolus MD Complaint: shortness of breath -: Sudden, This morning Severity: severe Consistency: constant Improves With: nothing Worsens With: nothing Known History Of: COPD, asthma Context: other (hx of multiple admissions, tobacco abuse) Treatments Prior to Arrival: other (CPAP, bronchodilators) - Related Data Home Medications Medication Instructions Recorded Confirmed Last Taken Ibuprofen [Motrin 800 MG tab] 800 mg PO Q8HR PRN 09/29/18 05/09/19 Unknown Aspirin 325 mg PO QDAY 02/15/19 05/09/19 05/08/19 10:00 Phentermine HCl 37.5 mg PO QAM 02/15/19 05/09/19 Unknown diazePAM TAB [Valium] 1 mg PO TID 05/07/19 05/09/19 05/06/19 22:00 Previous Rx's Medication Instructions Recorded Last Taken Type ALBUTEROL Inhaler (OR & NICU) 2 puff IH QID PRN 30 Days 02/17/19 05/09/19 05:30 Rx [ProAir HFA Inhaler] inhalation Metoprolol Xl [Metoprolol 25 mg PO QDAY #30 tablet 02/17/19 05/08/19 10:00 Rx SUCCINATE ER TAB] Naproxen [Naprosyn TAB] 500 mg PO BID PRN #10 tablet 02/17/19 05/08/19 10:00 Rx hydroCHLOROthiazide [HCTZ] 12.5 mg PO DAILY #30 tablet 02/17/19 05/08/19 10:00 Rx metFORMIN [Glucophage] 500 mg PO BID #30 tablet 02/17/19 05/07/19 10:00 Rx ALBUTEROL NEB's [Proventil 0.083% 5 mg IH TID PRN #90 neb 05/18/19 Unknown Rx NEBS] Fluticasone/Vilanterol [Breo 1 each IH BID #1 blst.w.dev 05/18/19 Unknown Rx Ellipta 200-25 Mcg INH] Ipratropium/Albuterol Sulfate 1 ampul IH QIDRT #90 ampul.neb 05/18/19 Unknown Rx [DUONEB *Not for PRN Use*] Prednisone [predniSONE 10 mg 10 mg PO .TAPER #1 tab.ds.pk 05/18/19 Unknown Rx (6-Day Pack, 21 Tabs)] Tiotropium [place] [Spiriva 1 each IH DAILY #1 mist.inhal 05/18/19 Unknown Rx Respimat] hydroCHLOROthiazide [HCTZ] 12.5 mg PO QDAY #90 capsule 05/18/19 Unknown Rx Albuterol Sulfate [Proair 90 mcg IH Q4HR PRN #2 aer.pow.ba 05/30/19 Unknown Rx Respiclick] predniSONE [Deltasone] 40 mg PO QDAY #8 tab 05/30/19 Unknown Rx Allergies Allergy/AdvReac Type Severity Reaction Status Date / Time iodine Allergy Rash Verified 05/07/19 16:02 shellfish derived Allergy Rash Verified 05/07/19 16:02 ED Review of Systems ROS: Stated complaint: RESPIRATORY DISTRESS Other details as noted in HPI Comment: Unobtainable due to pts medical conditions (severe work of breathing with CPAP in place) ED Past Medical Hx - Past Medical History Previous Medical History?: Yes Hx Hypertension: Yes Hx Congestive Heart Failure: Yes Hx Diabetes: No Hx Sickle Cell Disease: No Hx Arthritis: Yes Hx Asthma: Yes Hx COPD: Yes Hx HIV: No Additional medical history: Sleep Apnea,.Morbid Obesity - Surgical History Additional Surgical History: x 3, orthopedic (arch replacement) [facility] 05/17/19 - Social History Smoking Status: Unknown if ever smoked - Medications Home Medications: Home Medications Medication Instructions Recorded Confirmed Last Taken Type Ibuprofen [Motrin 800 MG tab] 800 mg PO Q8HR PRN 09/29/18 05/09/19 Unknown History Aspirin 325 mg PO QDAY 02/15/19 05/09/19 05/08/19 10:00 History Phentermine HCl 37.5 mg PO QAM 02/15/19 05/09/19 Unknown History ALBUTEROL Inhaler (OR & NICU) 2 puff IH QID PRN 30 Days 02/17/19 05/09/19 05/09/19 05:30 Rx [ProAir HFA Inhaler] inhalation Metoprolol Xl [Metoprolol 25 mg PO QDAY #30 tablet 02/17/19 05/09/19 05/08/19 10:00 Rx SUCCINATE ER TAB] Naproxen [Naprosyn TAB] 500 mg PO BID PRN #10 tablet 02/17/19 05/09/19 05/08/19 10:00 Rx hydroCHLOROthiazide [HCTZ] 12.5 mg PO DAILY #30 tablet 02/17/19 05/09/19 05/08/19 10:00 Rx metFORMIN [Glucophage] 500 mg PO BID #30 tablet 02/17/19 05/09/19 05/07/19 10:00 Rx diazePAM TAB [Valium] 1 mg PO TID 05/07/19 05/09/19 05/06/19 22:00 History ALBUTEROL NEB's [Proventil 0.083% 5 mg IH TID PRN #90 neb 05/18/19 Unknown Rx NEBS] Fluticasone/Vilanterol [Breo 1 each IH BID #1 blst.w.dev 05/18/19 Unknown Rx Ellipta 200-25 Mcg INH] Ipratropium/Albuterol Sulfate 1 ampul IH QIDRT #90 ampul.neb 05/18/19 Unknown Rx [DUONEB *Not for PRN Use*] Prednisone [predniSONE 10 mg 10 mg PO .TAPER #1 tab.ds.pk 05/18/19 Unknown Rx (6-Day Pack, 21 Tabs)] Tiotropium [place] [Spiriva 1 each IH DAILY #1 mist.inhal 05/18/19 Unknown Rx Respimat] hydroCHLOROthiazide [HCTZ] 12.5 mg PO QDAY #90 capsule 05/18/19 Unknown Rx Albuterol Sulfate [Proair 90 mcg IH Q4HR PRN #2 aer.pow.ba 05/30/19 Unknown Rx Respiclick] predniSONE [Deltasone] 40 mg PO QDAY #8 tab 05/30/19 Unknown Rx ED Physical Exam - General Limitations: No Limitations General appearance: alert, anxious, in distress (severe respiratory distress) - Head Head exam: Present: atraumatic, normocephalic - Eye Eye exam: Present: normal appearance - ENT ENT exam: Present: mucous membranes moist - Neck Neck exam: Present: normal inspection, full ROM. Absent: tenderness, meningismus - Respiratory Respiratory exam: Present: respiratory distress, rales, rhonchi, accessory muscle use, other (rapid breathing short expiratory phase rales/ronchi in lower chest and mid back) - Cardiovascular Cardiovascular Exam: Present: normal rhythm, tachycardia, normal heart sounds. Absent: systolic murmur, diastolic murmur, rubs, gallop - GI/Abdominal GI/Abdominal exam: Present: soft, normal bowel sounds. Absent: distended, tenderness, guarding, rebound - Extremities Exam Extremities exam: Present: normal inspection. Absent: pedal edema - Neurological Exam Neurological exam: Present: alert, oriented X3 - Psychiatric Psychiatric exam: Present: normal affect, anxious - Skin Skin exam: Present: warm, dry, intact, normal color. Absent: rash ED Course Vital Signs 06/28/19 06/28/19 10:25 10:27 Pulse Rate 112 H Pulse Rate [ 84 Left Lower Lobe ] Pulse Rate [ 87 Right Lower Lobe] Respiratory 24 Rate [Left Lower Lobe] Respiratory 24 Rate [Right Lower Lobe] Blood Pressure 142/86 ED Medical Decision Making - Lab Data Result diagrams: 06/28/19 11:18 06/28/19 11:18 - EKG Data 06/28/19 12:37 EKG obtained 1224 Sinus tachycardia rate 100 bpm normal axis normal intervals no ST-T signs of ischemia normal EKG with the exception of tachycardia - Radiology Data Radiology results: report reviewed Mrs. Rios presented in extreme respiratory distress. Treated for both possible CHF and copd exacerbation. Interventions included magnesium, solumedrol, furosemide, continuous neb NIPPV with bipap. Required lorazepam for ultimate stablization. Appears to have anxiety disorder according to EMR. admitted to hospitalist service on bipap in fair condition tropoonin negative CXR no acute findings On reexamination, able to speak full sentences with BIPAP mask in place Critical Care Time: Yes Critical care attestation.: If time is entered above; I have spent that time in minutes in the direct care of this critically ill patient, excluding procedure time. 40 minutes of critical care time excluding procedures were used in the care of the patient. I came to the bedside immediately upon arrival. I discussed resuscitation and treatment plan with respiratory therapist and registered nurse at the bedside. I obtain history from paramedics and electronic medical record. I contacted her significant other for further history. Patient required multiple interventions and frequent reassessment. I was concerned for worsening respiratory failure and airway compromise. ED Disposition Clinical Impression: Acute respiratory failure, COPD with acute exacerbation Disposition: OP ADMIT IP TO THIS HOSP Is pt being admited?: Yes Does the pt Need Aspirin: No
[2019-06-28] MEDS ORDERED: methylPREDNISolone Sod Succinate 125 MG/2 ML INJ IV ONE (10:41)
[2019-06-28] MEDS ORDERED: LORazepam 2 MG/ML VIAL ONE (10:59)
[2019-06-28] MEDS ORDERED: LORazepam 2 MG/ML VIAL IV ONE ×2 (11:00)
[2019-06-28 11:30] LABS: Hematocrit 35.8 % (30.3-42.9); Hemoglobin 11.5 gm/dl (10.1-14.3); Mean Corpuscular HGB Conc 32 % (30-34); Mean Corpuscular Volume 79 fl (79-97); Platelet Count 325 K/mm3 (140-440); Red Blood Count 4.52 M/mm3 (3.65-5.03); Red Cell Distribution Width 15.3 % (13.2-15.2)
--- NOTE | 2019-06-28 11:34 | XRay Report ---
CHEST 1 VIEW INDICATION / CLINICAL INFORMATION: Dyspnea severe, hx of chf/copd. COMPARISON: 06/04/2019 FINDINGS: SUPPORT DEVICES: None. HEART / MEDIASTINUM: No significant abnormality. LUNGS / PLEURA: No significant pulmonary or pleural abnormality. No pneumothorax. ADDITIONAL FINDINGS: No significant additional findings. IMPRESSION: 1. No acute findings. Signer Name: Kristian Jett MD Signed: 06/28/2019 11:30 AM Workstation Name: [id number]
[2019-06-28 11:50] LABS: Alanine Aminotransferase 6 units/L (7-56); Albumin 4.1 g/dL (3.9-5); BUN/Creatinine Ratio 22; Blood Urea Nitrogen 11 mg/dL (7-17); Calcium 9.4 mg/dL (8.4-10.2); Hemolysis Index 2
[2019-06-28] MEDS ORDERED: NAPROXEN 500 MG TAB PO PRN (12:45)
[2019-06-28] MEDS ORDERED: ALBUTEROL 2.5 MG/3 ML NEBU IH PRN (12:45)
--- NOTE | 2019-06-28 12:45 | History and Physical Report ---
History of Present Illness Chief complaint: I cannot breathe History of present illness: 43 YO Female with HTN, CHF, Asthma, COPD, Obesity Hypoventilation presents to ED for evaluation. Pt is lethargic at time of my exam and is unable to provide detailed history. Patient is lying in bed and in moderate respiratory distress. Patient is unable to speak in complete sentences. Patient has noninvasive positive pressure ventilation in place at time of my exam. Patient displays increased work of breathing and is using accessory muscles to breathe. Patient history taken from medical record as well as ED staff who reports that the patient has experienced persistent shortness of breath over the past 3 days with progressively worsening symptoms over the same time frame. Pt has experienced shortness of breath, decreased exercise tolerance, dypsnea on exertion, dypsnea at rest. Patient symptoms not resolved with increase use of nebulizer therapy. EMS notified and upon arrival the patient was found to be in severe respiratory distress and transported to [facility]. Pt seen and evaluated in ED and found to have symptoms consistent with Acute Respiratory Failure. Pt admitted to IMCU due to high likelihood of respiratory decompensation. Pulmonary team consulted in ED. No reports of fever, chills, CP, palpitations, NVD, Trauma, hemoptysis, productive cough, skin rash, prolonged travel/immobility, unilateral leg s welling, individual/family history of DVT/PE/Bleeding/Blood Clotting Disorders. Prior admission on 05/09/19 reviewed. All listed medication reconciled at time of admission. Past History Past Medical History: COPD, heart failure, hypertension Past Surgical History: , Other (Heart Cath, Foot surgery) Social history: , lives with family. denies: smoking, alcohol abuse, prescription drug abuse Family history: hypertension Medications and Allergies Allergies Allergy/AdvReac Type Severity Reaction Status Date / Time iodine Allergy Rash Verified 05/07/19 16:02 shellfish derived Allergy Rash Verified 05/07/19 16:02 Home Medications Medication Instructions Recorded Confirmed Last Taken Type Ibuprofen [Motrin 800 MG tab] 800 mg PO Q8HR PRN 09/29/18 05/09/19 Unknown History Aspirin 325 mg PO QDAY 02/15/19 05/09/19 05/08/19 10:00 History Phentermine HCl 37.5 mg PO QAM 02/15/19 05/09/19 Unknown History ALBUTEROL Inhaler (OR & NICU) 2 puff IH QID PRN 30 Days 02/17/19 05/09/19 05/09/19 05:30 Rx [ProAir HFA Inhaler] inhalation Metoprolol Xl [Metoprolol 25 mg PO QDAY #30 tablet 02/17/19 05/09/19 05/08/19 10:00 Rx SUCCINATE ER TAB] Naproxen [Naprosyn TAB] 500 mg PO BID PRN #10 tablet 02/17/19 05/09/19 05/08/19 10:00 Rx hydroCHLOROthiazide [HCTZ] 12.5 mg PO DAILY #30 tablet 02/17/19 05/09/19 05/08/19 10:00 Rx metFORMIN [Glucophage] 500 mg PO BID #30 tablet 02/17/19 05/09/19 05/07/19 10:00 Rx diazePAM TAB [Valium] 1 mg PO TID 05/07/19 05/09/19 05/06/19 22:00 History ALBUTEROL NEB's [Proventil 0.083% 5 mg IH TID PRN #90 neb 05/18/19 Unknown Rx NEBS] Fluticasone/Vilanterol [Breo 1 each IH BID #1 blst.w.dev 05/18/19 Unknown Rx Ellipta 200-25 Mcg INH] Ipratropium/Albuterol Sulfate 1 ampul IH QIDRT #90 ampul.neb 05/18/19 Unknown Rx [DUONEB *Not for PRN Use*] Prednisone [predniSONE 10 mg 10 mg PO .TAPER #1 tab.ds.pk 05/18/19 Unknown Rx (6-Day Pack, 21 Tabs)] Tiotropium [place] [Spiriva 1 each IH DAILY #1 mist.inhal 05/18/19 Unknown Rx Respimat] hydroCHLOROthiazide [HCTZ] 12.5 mg PO QDAY #90 capsule 05/18/19 Unknown Rx Albuterol Sulfate [Proair 90 mcg IH Q4HR PRN #2 aer.pow.ba 05/30/19 Unknown Rx Respiclick] predniSONE [Deltasone] 40 mg PO QDAY #8 tab 05/30/19 Unknown Rx Review of Systems ROS unobtainable: due to mental status Exam - Constitutional Vitals: Temp Pulse Resp BP Pulse Ox 87 24 142/86 06/28/19 10:27 06/28/19 10:27 06/28/19 10:25 General appearance: Present: mild distress, obese - EENT Eyes: Present: miosis ENT: hearing intact, clear oral mucosa - Neck Neck: Present: supple, normal ROM - Respiratory Respiratory effort: labored, pursed lips, accessory muscle use, stridor Respiratory: bilateral: diminished, rhonchi - Cardiovascular Rhythm: other (tachycardia) Heart Sounds: Present: S1 & S2. Absent: rub, click - Extremities Extremities: pulses symmetrical, No edema Peripheral Pulses: within normal limits - Abdominal General gastrointestinal: Present: soft, non-tender, non-distended, normal bowel sounds Female genitourinary: Present: normal - Integumentary Integumentary: Present: clear, warm, dry - Musculoskeletal Musculoskeletal: generalized weakness - Psychiatric Psychiatric: no appropriate mood/affect, no intact judgment & insight, no memory intact - Neurologic Neurologic: CNII-XII intact, moves all extremities Results - Labs CBC & Chem 7: 06/28/19 11:18 06/28/19 11:18 Labs: Abnormal lab results 06/28/19 06/28/19 Range/Units 11:18 11:18 WBC 11.3 H (4.5-11.0) K/mm3 MCH 26 L (28-32) pg RDW 15.3 H (13.2-15.2) % Potassium 3.2 L (3.6-5.0) mmol/L Carbon Dioxide 20 L (22-30) mmol/L Creatinine 0.5 L (0.7-1.2) mg/dL Glucose 133 H (65-100) mg/dL ALT 6 L (7-56) units/L Assessment and Plan - Patient Problems (1) Acute respiratory failure Status: Acute Qualifiers: Respiratory failure complication: hypoxia Qualified Code(s): J96.01 - Acute respiratory failure with hypoxia Plan to address problem: Supplemental oxygen, nebulizer therapy, pulmonary team consulted, noninvasive positive pressure ventilation, chest x-ray, pulse oximetry, supportive care. (2) Obesity hypoventilation syndrome Status: Acute Plan to address problem: Supplemental oxygen, nebulizer therapy, balanced diet, increase physical activity at discharge, outpatient bariatric surgery consult, outpatient sleep study. (3) CHF (congestive heart failure) Status: Acute Qualifiers: Heart failure type: systolic Heart failure chronicity: chronic Qualified Code(s): I50.22 - Chronic systolic (congestive) heart failure Plan to address problem: Strict I&O, daily weight, afterload reduction, supplemental oxygen, chest x-ray, blood pressure control, monitor urine output every shift (4) COPD with acute exacerbation Status: Acute Plan to address problem: Supplemental oxygen, nebulizer therapy, empiric IV antibiotic therapy, IV steroid therapy, IV magnesium, chest x-ray. (5) HTN (hypertension) Status: Acute Qualifiers: Hypertension type: essential hypertension Qualified Code(s): I10 - Essential (primary) hypertension Plan to address problem: Monitor blood pressure every shift, continue medical management (6) DVT prophylaxis Status: Acute Plan to address problem: SCD to bilateral lower extremities. Prophylactic heparin
[2019-06-28] MEDS ORDERED: ACETAMINOPHEN 325 MG TAB PO PRN (12:49)
[2019-06-28] MEDS ORDERED: ONDANSETRON 4 MG/2 ML INJ IV PRN (12:49)
[2019-06-28 13:48] LABS: Band Neutrophils # (Manual) 0.1 K/mm3; Monocytes % (Manual) 0 % (0.0-7.3); Platelet Estimate Consistent w Auto; RBC Morphology Normal; Total Cells Counted 100
[2019-06-28] MEDS ORDERED: diazePAM 2 MG TAB PO SCH (14:00)
[2019-06-28] MEDS: AZITHROMYCIN 500 MG in SODIUM CHLORIDE 0.9% 250ML 250 ML IV SCH (14:10)
--- NOTE | 2019-06-28 16:34 | Consultation ---
History of Present Illness Consult date: 06/28/19 Reason for consult: dyspnea, cough, chest pain, asthma, COPD, obstructive sleep apnea History of present illness: PULMONARY AND CRITICAL CARE CONSULTATION DR. POWELL THANK YOU FOR ASKING US TO PARTICIPATE IN THE CARE OF THIS PATIENT. 43 YO Female with HTN, CHF, Asthma, COPD, Obesity Hypoventilation presents to ED for evaluation. Pt is lethargic at time of my exam and is unable to provide detailed history. Patient is lying in bed and in moderate respiratory distress. Patient is unable to speak in complete sentences. Patient has noninvasive positive pressure ventilation in place at time of my exam. Patient displays increased work of breathing and is using accessory muscles to breathe. Patient history taken from medical record as well as ED staff who reports that the patient has experienced persistent shortness of breath over the past 3 days with progressively worsening symptoms over the same time frame. Pt has experienced shortness of breath, decreased exercise tolerance, dypsnea on exertion, dypsnea at rest. Patient symptoms not resolved with increase use of nebulizer therapy. EMS notified and upon arrival the patient was found to be in severe respiratory distress and transported to [facility]. Pt seen and evaluated in ED and found to have symptoms consistent with Acute Respiratory Failure. Pt admitted to IMCU due to high likelihood of respiratory decompensation. No reports of fever, chills, CP, palpitations, NVD, Trauma, hemoptysis, productive cough, skin rash, prolonged travel/immobility, unilateral leg swelling, individual/family history of DVT/PE/Bleeding/Blood Clotting Disorders. Patient presently on BIPAP20/10, rate 20, FIO2 45%. Ordered ABGs on these settings. O2 saturation running 95%. CHest xray reported no acute findings. Past History Past Medical History: COPD, heart failure, hypertension Past Surgical History: , Other (Heart Cath, Foot surgery) Social history: , lives with family. denies: smoking, alcohol abuse, prescription drug abuse Family history: hypertension Medications and Allergies Allergies Allergy/AdvReac Type Severity Reaction Status Date / Time iodine Allergy Rash Verified 05/07/19 16:02 shellfish derived Allergy Rash Verified 05/07/19 16:02 Home Medications Medication Instructions Recorded Confirmed Last Taken Type Ibuprofen [Motrin 800 MG tab] 800 mg PO Q8HR PRN 09/29/18 06/28/19 Unknown History Aspirin 325 mg PO QDAY 02/15/19 06/28/19 05/08/19 10:00 History Phentermine HCl 37.5 mg PO QAM 02/15/19 06/28/19 Unknown History ALBUTEROL Inhaler (OR & NICU) 2 puff IH QID PRN 30 Days 02/17/19 06/28/19 11/11/20 05:30 Rx [ProAir HFA Inhaler] inhalation Metoprolol Xl [Metoprolol 25 mg PO QDAY #30 tablet 02/17/19 06/28/19 05/08/19 10:00 Rx SUCCINATE ER TAB] Naproxen [Naprosyn TAB] 500 mg PO BID PRN #10 tablet 02/17/19 06/28/19 05/08/19 10:00 Rx diazePAM TAB [Valium] 1 mg PO TID 05/07/19 06/28/19 05/06/19 22:00 History ALBUTEROL NEB's [Proventil 0.083% 5 mg IH TID PRN #90 neb 05/18/19 06/28/19 Unknown Rx NEBS] Fluticasone/Vilanterol [Breo 1 each IH BID #1 blst.w.dev 05/18/19 06/28/19 Unknown Rx Ellipta 200-25 Mcg INH] Ipratropium/Albuterol Sulfate 1 ampul IH QIDRT #90 ampul.neb 05/18/19 06/28/19 Unknown Rx [DUONEB *Not for PRN Use*] Tiotropium [place] [Spiriva 1 each IH DAILY #1 mist.inhal 05/18/19 06/28/19 Unknown Rx Respimat] Albuterol Sulfate [Proair 90 mcg IH Q4HR PRN #2 aer.pow.ba 05/30/19 06/28/19 Unknown Rx Respiclick] hydroCHLOROthiazide [HCTZ] 25 mg PO DAILY 06/28/19 06/28/19 Unknown History Active Meds: Active Medications Acetaminophen (Tylenol) 650 mg PO Q4H PRN PRN Reason: Pain MILD(1-3)/Fever >100.5/CESAR Albuterol (Proventil) 2.5 mg IH Q4HRT PRN PRN Reason: Shortness Of Breath Arformoterol Tartrate (Brovana Nebu) 15 mcg IH Q12HRT DARIUSZ Aspirin (Aspirin) 325 mg PO QDAY [facility] Budesonide (Pulmicort) 0.5 mg IH Q12HRT [facility] Diazepam (Valium) 1 mg PO TID [facility] Famotidine (Pepcid) 10 mg PO BID [facility] Heparin Sodium (Porcine) (Heparin) 5,000 unit SUB-Q Q12HR [facility] Hydrochlorothiazide (Hctz) 12.5 mg PO QDAY [facility] Azithromycin 500 mg/ Sodium (Chloride) 250 mls @ 250 mls/hr IV Q24HR [facility]; Protocol Last Admin: 06/28/19 14:10 Dose: 250 mls/hr Documented by: Ipratropium [place] (Atrovent) 0.5 mg IH Q6HRT [facility] Methylprednisolone Sodium Succinate (Solu-Medrol) 40 mg IV Q12HR [facility] Naproxen (Naproxen) 500 mg PO BID PRN PRN Reason: arthritis pain Ondansetron HCl (Zofran) 4 mg IV Q8H PRN PRN Reason: Nausea And Vomiting Sodium Chloride (Sodium Chloride Flush Syringe 10 Ml) 10 ml IV BID [facility] Sodium Chloride (Sodium Chloride Flush Syringe 10 Ml) 10 ml IV PRN PRN PRN Reason: LINE FLUSH Review of Systems All systems: negative Physical Examination Vital signs: Vital Signs Pulse BP 112 H 142/86 06/28/19 10:25 06/28/19 10:25 General appearance: alert, agitated, appears uncomfortable, other (Moderate respiratory distress. Anxious.) Eyes: non-icteric ENT: oropharynx moist Neck: supple, no JVD Ascultation: Bilateral: diminished breath sounds, wheezes, rhonchi Cardiovascular: regular rate and rhythm Gastrointestinal: normoactive bowel sounds, soft, non-tender Integumentary: normal Extremities: no cyanosis, no edema Musculoskeletal: no deformities Gait: other (Unable to assess at this time.) non-focal exam, pupils equal and round, CN II-XII normal anxious Results - Laboratory Findings CBC and BMP: 06/28/19 11:18 06/28/19 11:18 Abnormal lab findings: Abnormal Labs 06/28/19 06/28/19 11:18 11:18 WBC 11.3 H MCH 26 L RDW 15.3 H Seg Neuts % (Manual) 93.0 H Lymphocytes % (Manual) 4.0 L Seg Neutrophils # Man 10.5 H Lymphocytes # (Manual) 0.5 L Potassium 3.2 L Carbon Dioxide 20 L Creatinine 0.5 L Glucose 133 H ALT 6 L - Diagnostic Findings Chest x-ray: report reviewed (rEPORTED NO ACUTE FINDINGS.), image reviewed Assessment and Plan 43 YO Female with HTN, CHF, Asthma, COPD, Obesity Hypoventilation presents to ED for evaluation. Pt is lethargic at time of my exam and is unable to provide detailed history. Patient is lying in bed and in moderate respiratory distress. Patient is unable to speak in complete sentences. Patient has noninvasive positive pressure ventilation in place at time of my exam. Patient displays increased work of breathing and is using accessory muscles to breathe. Patient history taken from medical record as well as ED staff who reports that the patient has experienced persistent shortness of breath over the past 3 days with progressively worsening symptoms over the same time frame. Pt has experienced shortness of breath, decreased exercise tolerance, dypsnea on exertion, dypsnea at rest. Patient symptoms not resolved with increase use of nebulizer therapy. EMS notified and upon arrival the patient was found to be in severe respiratory distress and transported to [facility]. Pt seen and evaluated in ED and found to have symptoms consistent with Acute Respiratory Failure. Pt admitted to IMCU due to high likelihood of respiratory decompensation. No reports of fever, chills, CP, palpitations, NVD, Trauma, hemoptysis, productive cough, skin rash, prolonged travel/immobility, unilateral leg swelling, individual/family history of DVT/PE/Bleeding/Blood Clotting Disorders. Patient presently on BIPAP20/10, rate 20, FIO2 45%. Ordered ABGs on these s ettings. O2 saturation running 95%. CHest xray reported no acute findings. - Patient Problems (1) Acute respiratory failure Current Visit: No Status: Acute Qualifiers: Respiratory failure complication: hypoxia Qualified Code(s): J96.01 - Acute respiratory failure with hypoxia Plan to address problem: BIPAP 20/10, rate 20, FIO2 40% ABGs on BIPAP. Albuterol/atrovent aerosol treatments q 6 hours. Continue I/V solumedrol. Continue Zithromax. Continue S/C heparin. Continue Famotidine. (2) COPD with acute exacerbation Current Visit: No Status: Acute Plan to address problem: BIPAP 20/10, rate 20, FIO2 40% ABGs on BIPAP. Albuterol/atrovent aerosol treatments q 6 hours. Continue I/V solumedrol. Continue Zithromax. Continue S/C heparin. Continue Famotidine (3) Morbid obesity Current Visit: No Status: Chronic Plan to address problem: Counselled to loose weight. Consult stone gluer for weight reduction diet. (4) Sleep apnea Current Visit: No Status: Chronic Plan to address problem: BIPAP20/10, rate 20, FIO2 40% (5) Obesity hypoventilation syndrome Current Visit: Yes Status: Acute Plan to address problem: BIPAP20/10, rate 20, FIO2 40% (6) Tobacco use Current Visit: No Status: Chronic Plan to address problem: Counselled to stop smoking.
[2019-06-28] MEDS: IPRATROPIUM 0.02% NEBU 2.5 ML IH SCH ×2 (17:20→20:23)
[2019-06-28] MEDS: diazePAM 2 MG TAB PO PRN (17:44)
[2019-06-28] MEDS: BUDESONIDE 0.5 MG/2 ML NEBU IH SCH (20:23)
[2019-06-28] MEDS: ARFORMOTEROL 15 MCG/2 ML NEBU IH SCH (20:23)
[2019-06-28] MEDS ORDERED: ALPRAZolam 0.25 MG TAB PO ONE (21:36)
[2019-06-28] MEDS ORDERED: NON-FORMULARY EACH (Fluticasone/Vilanterol [Breo Ellipta 200-25 Mcg Inh] 1 EACH) IH SCH (22:00)
[2019-06-28] MEDS: FAMOTIDINE 10 MG TAB PO SCH (22:48)
[2019-06-28] MEDS: HEPARIN 5,000 UNIT/1 ML VIAL SUB-Q SCH (22:49)
[2019-06-28] MEDS: methylPREDNISolone Sod Succinate 40 MG/1 ML INJ IV SCH (22:51)
[2019-06-29] MEDS: IPRATROPIUM 0.02% NEBU 2.5 ML IH SCH ×4 (02:00→21:21)
[2019-06-29 04:31] LABS: Basophils % (Auto) 0.2 % (0.0-1.8); Hematocrit 32.6 % (30.3-42.9); Hemoglobin 10.7 gm/dl (10.1-14.3); Lymphocytes # (Auto) 0.4 K/mm3 (1.2-5.4); Lymphocytes % (Auto) 6.9 % (13.4-35.0); Mean Corpuscular HGB Conc 33 % (30-34); Mean Corpuscular Volume 79 fl (79-97); Monocytes # (Auto) 0.2 K/mm3 (0.0-0.8); Monocytes % (Auto) 3.3 % (0.0-7.3); Platelet Count 307 K/mm3 (140-440); Red Blood Count 4.15 M/mm3 (3.65-5.03); Red Cell Distribution Width 15.5 % (13.2-15.2)
[2019-06-29 05:06] LABS: BUN/Creatinine Ratio 24; Blood Urea Nitrogen 12 mg/dL (7-17); Calcium 9.8 mg/dL (8.4-10.2); Hemolysis Index 0
[2019-06-29] MEDS: ALBUTEROL 2.5 MG/3 ML NEBU IH PRN ×2 (06:32→14:33)
[2019-06-29] MEDS: ARFORMOTEROL 15 MCG/2 ML NEBU IH SCH ×2 (09:25→21:16)
[2019-06-29] MEDS: BUDESONIDE 0.5 MG/2 ML NEBU IH SCH ×2 (09:25→21:16)
[2019-06-29] MEDS ORDERED: ASPIRIN 325 MG TAB PO SCH (10:00)
[2019-06-29] MEDS ORDERED: TIOTROPIUM BROMIDE IH SCH (10:00)
[2019-06-29] MEDS: HEPARIN 5,000 UNIT/1 ML VIAL SUB-Q SCH ×2 (10:08→22:28)
[2019-06-29] MEDS: AZITHROMYCIN 500 MG in SODIUM CHLORIDE 0.9% 250ML 250 ML IV SCH (10:08)
[2019-06-29] MEDS: FAMOTIDINE 10 MG TAB PO SCH ×2 (10:08→22:27)
[2019-06-29] MEDS: methylPREDNISolone Sod Succinate 40 MG/1 ML INJ IV SCH ×2 (10:08→22:27)
[2019-06-29] MEDS: hydroCHLOROthiazide 12.5 MG CAP PO SCH (10:08)
[2019-06-29] MEDS: diazePAM 2 MG TAB PO PRN ×2 (10:46→22:27)
--- NOTE | 2019-06-29 11:48 | Progress Note ---
Assessment and Plan patient alert, awake, breathing better today. Patient presently on 4L O2 saturating 100%. BiPAP standby in the room. No acute respiratory distress. re- ordering blood gases. - Patient Problems (1) Acute respiratory failure Current Visit: No Status: Inactive Qualifiers: Respiratory failure complication: hypoxia Qualified Code(s): J96.01 - Acute respiratory failure with hypoxia Plan to address problem: BIPAP 20/10, rate 20, FIO2 40% ABGs on BIPAP. Albuterol/atrovent aerosol treatments q 6 hours. Continue I/V solumedrol. Continue Zithromax. Continue S/C heparin. Continue Famotidine. (2) COPD with acute exacerbation Current Visit: No Status: Acute Plan to address problem: BIPAP 20/10, rate 20, FIO2 40% ABGs on BIPAP. Albuterol/atrovent aerosol treatments q 6 hours. Continue I/V solumedrol. Continue Zithromax. Continue S/C heparin. Continue Famotidine (3) Morbid obesity Current Visit: No Status: Chronic Plan to address problem: Counselled to loose weight. Consult hard metals hand engraver for weight reduction diet. (4) Sleep apnea Current Visit: No Status: Chronic Plan to address problem: BIPAP20/10, rate 20, FIO2 40% (5) Obesity hypoventilation syndrome Current Visit: Yes Status: Acute Plan to address problem: BIPAP20/10, rate 20, FIO2 40% (6) Tobacco use Current Visit: No Status: Chronic Plan to address problem: Counselled to stop smoking. Subjective Date of service: 06/29/19 Interval history: patient alert, awake, breathing better today. Patient presently on 4L O2 saturating 100%. BiPAP standby in the room. No acute respiratory distress. re- ordering blood gases. Objective Vital Signs - 12hr 06/28/19 06/29/19 06/29/19 23:51 00:00 00:01 Temperature Pulse Rate 94 H 99 H Pulse Rate [ Bilateral] Pulse Rate [ 92 H From Monitor] Pulse Rate [ Left Lower Lobe ] Pulse Rate [ Right Lower Lobe] Respiratory 20 20 16 Rate Respiratory Rate [Bilateral ] Respiratory Rate [Left Lower Lobe] Respiratory Rate [Right Lower Lobe] Blood Pressure 126/83 163/95 O2 Sat by Pulse 100 99 100 Oximetry 06/29/19 06/29/19 06/29/19 00:11 00:19 00:21 Temperature Pulse Rate 99 H 101 H 104 H Pulse Rate [ Bilateral] Pulse Rate [ From Monitor] Pulse Rate [ Left Lower Lobe ] Pulse Rate [ Right Lower Lobe] Respiratory 20 20 18 Rate Respiratory Rate [Bilateral ] Respiratory Rate [Left Lower Lobe] Respiratory Rate [Right Lower Lobe] Blood Pressure 163/95 163/95 163/95 O2 Sat by Pulse 100 100 100 Oximetry 06/29/19 06/29/19 06/29/19 00:31 00:41 00:51 Temperature Pulse Rate 100 H 99 H 94 H Pulse Rate [ Bilateral] Pulse Rate [ From Monitor] Pulse Rate [ Left Lower Lobe ] Pulse Rate [ Right Lower Lobe] Respiratory 13 21 19 Rate Respiratory Rate [Bilateral ] Respiratory Rate [Left Lower Lobe] Respiratory Rate [Right Lower Lobe] Blood Pressure 163/95 163/95 163/95 O2 Sat by Pulse 96 100 99 Oximetry 06/29/19 06/29/19 06/29/19 01:01 01:11 01:21 Temperature Pulse Rate 95 H 92 H 90 Pulse Rate [ Bilateral] Pulse Rate [ From Monitor] Pulse Rate [ Left Lower Lobe ] Pulse Rate [ Right Lower Lobe] Respiratory 20 20 19 Rate Respiratory Rate [Bilateral ] Respiratory Rate [Left Lower Lobe] Respiratory Rate [Right Lower Lobe] Blood Pressure 123/60 123/60 123/60 O2 Sat by Pulse 100 100 100 Oximetry 06/29/19 06/29/19 06/29/19 01:31 01:41 01:44 Temperature Pulse Rate 93 H 91 H 91 H Pulse Rate [ Bilateral] Pulse Rate [ From Monitor] Pulse Rate [ Left Lower Lobe ] Pulse Rate [ Right Lower Lobe] Respiratory 20 20 23 Rate Respiratory Rate [Bilateral ] Respiratory Rate [Left Lower Lobe] Respiratory Rate [Right Lower Lobe] Blood Pressure 123/60 123/60 123/60 O2 Sat by Pulse 100 100 100 Oximetry 06/29/19 06/29/19 06/29/19 01:51 02:00 02:11 Temperature Pulse Rate 89 90 94 H Pulse Rate [ Bilateral] Pulse Rate [ From Monitor] Pulse Rate [ Left Lower Lobe ] Pulse Rate [ Right Lower Lobe] Respiratory 22 18 18 Rate Respiratory Rate [Bilateral ] Respiratory Rate [Left Lower Lobe] Respiratory Rate [Right Lower Lobe] Blood Pressure 123/60 114/62 114/62 O2 Sat by Pulse 100 100 100 Oximetry 06/29/19 06/29/1919 02:21 02:31 02:41 Temperature Pulse Rate 92 H 89 92 H Pulse Rate [ Bilateral] Pulse Rate [ From Monitor] Pulse Rate [ Left Lower Lobe ] Pulse Rate [ Right Lower Lobe] Respiratory 21 20 19 Rate Respiratory Rate [Bilateral ] Respiratory Rate [Left Lower Lobe] Respiratory Rate [Right Lower Lobe] Blood Pressure 114/62 114/62 114/62 O2 Sat by Pulse 100 100 100 Oximetry 06/29/19 06/29/19 06/29/19 02:51 03:00 03:11 Temperature Pulse Rate 100 H 93 H 91 H Pulse Rate [ Bilateral] Pulse Rate [ From Monitor] Pulse Rate [ Left Lower Lobe ] Pulse Rate [ Right Lower Lobe] Respiratory 21 19 18 Rate Respiratory Rate [Bilateral ] Respiratory Rate [Left Lower Lobe] Respiratory Rate [Right Lower Lobe] Blood Pressure 114/62 122/65 122/65 O2 Sat by Pulse 100 99 99 Oximetry 06/29/19 06/29/19 06/29/19 03:21 03:31 03:41 Temperature Pulse Rate 88 94 H 92 H Pulse Rate [ Bilateral] Pulse Rate [ From Monitor] Pulse Rate [ Left Lower Lobe ] Pulse Rate [ Right Lower Lobe] Respiratory 17 14 18 Rate Respiratory Rate [Bilateral ] Respiratory Rate [Left Lower Lobe] Respiratory Rate [Right Lower Lobe] Blood Pressure 122/65 122/65 122/65 O2 Sat by Pulse 99 99 99 Oximetry 06/29/19 06/29/19 06/29/19 03:51 04:00 04:01 Temperature 97.4 F L Pulse Rate 89 84 100 H Pulse Rate [ Bilateral] Pulse Rate [ 88 From Monitor] Pulse Rate [ 96 H Left Lower Lobe ] Pulse Rate [ 96 H Right Lower Lobe] Respiratory 17 18 19 Rate Respiratory Rate [Bilateral ] Respiratory 20 Rate [Left Lower Lobe] Respiratory 20 Rate [Right Lower Lobe] Blood Pressure 122/65 140/75 140/75 O2 Sat by Pulse 100 99 100 Oximetry 06/29/19 06/29/19 06/29/19 05:00 06:00 07:01 Temperature Pulse Rate 88 92 H 97 H Pulse Rate [ Bilateral] Pulse Rate [ From Monitor] Pulse Rate [ Left Lower Lobe ] Pulse Rate [ Right Lower Lobe] Respiratory 17 17 14 Rate Respiratory Rate [Bilateral ] Respiratory Rate [Left Lower Lobe] Respiratory Rate [Right Lower Lobe] Blood Pressure 162/100 185/101 124/92 O2 Sat by Pulse 98 93 94 Oximetry 06/29/19 06/29/19 06/29/19 08:00 08:01 09:44 Temperature 98.4 F Pulse Rate Pulse Rate [ 89 Bilateral] Pulse Rate [ From Monitor] Pulse Rate [ Left Lower Lobe ] Pulse Rate [ Right Lower Lobe] Respiratory Rate Respiratory 24 Rate [Bilateral ] Respiratory Rate [Left Lower Lobe] Respiratory Rate [Right Lower Lobe] Blood Pressure 124/92 O2 Sat by Pulse 100 Oximetry 06/29/19 09:45 Temperature Pulse Rate 90 Pulse Rate [ Bilateral] Pulse Rate [ From Monitor] Pulse Rate [ Left Lower Lobe ] Pulse Rate [ Right Lower Lobe] Respiratory 25 H Rate Respiratory Rate [Bilateral ] Respiratory Rate [Left Lower Lobe] Respiratory Rate [Right Lower Lobe] Blood Pressure 145/87 O2 Sat by Pulse 99 Oximetry Constitutional: alert, agitated, appears uncomfortable, other (Moderate respira tory distress. Anxious.) Eyes: non-icteric ENT: oropharynx moist Neck: supple, no JVD Ascultation: Bilateral: diminished breath sounds, wheezes, rhonchi Cardiovascular: regular rate and rhythm Gastrointestinal: normoactive bowel sounds, soft, non-tender Integumentary: normal Extremities: no cyanosis, no edema Neurologic: non-focal exam, pupils equal and round, CN II-XII normal Psychiatric: anxious CBC and BMP: 06/29/19 03:25 06/29/19 03:25 Abnormal lab findings: Abnormal Labs 06/28/19 06/28/19 06/29/19 11:18 11:18 03:25 WBC 11.3 H MCH 26 L 26 L RDW 15.3 H 15.5 H Lymph % (Auto) 6.9 L Lymph # 0.4 L Seg Neutrophils % 89.6 H Seg Neuts % (Manual) 93.0 H Lymphocytes % (Manual) 4.0 L Seg Neutrophils # Man 10.5 H Lymphocytes # (Manual) 0.5 L Potassium 3.2 L Carbon Dioxide 20 L Creatinine 0.5 L Glucose 133 H ALT 6 L 06/29/19 03:25 WBC MCH RDW Lymph % (Auto) Lymph # Seg Neutrophils % Seg Neuts % (Manual) Lymphocytes % (Manual) Seg Neutrophils # Man Lymphocytes # (Manual) Potassium Carbon Dioxide Creatinine 0.5 L Glucose 155 H ALT
--- NOTE | 2019-06-29 15:26 | Progress Note ---
Assessment and Plan Assessment and plan: Patient is a 43 yo AA woman with a history of Sarcodosis (recent dx), HTN, CHF, Asthma, chronic hypoxic respiratory failure on 4 lites of home O2 due to COPD and Obesity Hypoventilation who presents with SOB. She was treat with BIPAP. Acute hypoxic respiratory failure -Supplemental oxygen, nebulizer therapy, pulmonary team consulted, noninvasive positive pressure ventilation, chest x-ray, pulse oximetry, supportive care. Obesity hypoventilation syndrome -Supplemental oxygen, nebulizer therapy, balanced diet, increase physical activity at discharge, outpatient bariatric surgery consult, outpatient sleep study. CHF (congestive heart failure) -Strict I&O, daily weight, afterload reduction, supplemental oxygen, chest x- ray, blood pressure control, monitor urine output every shift COPD with acute exacerbation -Supplemental oxygen, nebulizer therapy, empiric IV antibiotic therapy, IV steroid therapy, IV magnesium, chest x-ray. HTN (hypertension) -Monitor blood pressure every shift, continue medical management DVT prophylaxis -SCD to bilateral lower extremities. Prophylactic heparin History Interval history: Patient was seen and examined. Follow-up on current diagnosis AE COPD. Overnight uneventful. Patient denies any chest pain, nausea/vomiting or severe headaches. Imaging, nursing note, chart, labs and old chart reviewed. Discussed with tracey nj. Hospitalist Physical - Physical exam Narrative exam: Gen: WDWN, bmi 44.7, NAD, Awake, Alert, Orientated HEENT: NCAT, EOMI, PERRL, OP Clear Neck: supple, no adenopathy, no thyromegaly, no JVD CVS/Heart: RRR, normal S1S2, pulses present bilaterally Chest/Lungs: diminished bs bilateral, Symmetrical chest expansion, good air entry bilaterally GI/Abdomen: soft, NTND, good bowel sounds, no guarding or rebound /Bladder: no suprapubic tenderness, no CVA or paraspinal tenderness Extermity/Skin: no c/c/e, no obvious rash MSK: FROM x 4 Neuro: CN 2-12 grossly intact, no new focal deficits Psych: calm - Constitutional Vitals: Temp Pulse Resp BP Pulse Ox 98.2 F 98 H 19 145/87 97 06/29/19 12:00 06/29/19 14:55 06/29/19 14:55 06/29/19 09:45 06/29/19 12:00 General appearance: Present: mild distress, obese Results - Labs CBC & Chem 7: 06/29/19 03:25 06/29/19 03:25 Labs: Laboratory Last Values WBC 6.1 K/mm3 (4.5-11.0) 06/29/19 03:25 RBC 4.15 M/mm3 (3.65-5.03) 06/29/19 03:25 Hgb 10.7 gm/dl (10.1-14.3) 06/29/19 03:25 Hct 32.6 % (30.3-42.9) 06/29/19 03:25 MCV 79 fl (79-97) 06/29/19 03:25 MCH 26 pg (28-32) L 06/29/19 03:25 MCHC 33 % (30-34) 06/29/19 03:25 RDW 15.5 % (13.2-15.2) H 06/29/19 03:25 Plt Count 307 K/mm3 (140-440) 06/29/19 03:25 Lymph % (Auto) 6.9 % (13.4-35.0) L 06/29/19 03:25 [place] % (Auto) 3.3 % (0.0-7.3) 06/29/19 03:25 Eos % (Auto) 0.0 % (0.0-4.3) 06/29/19 03:25 Baso % (Auto) 0.2 % (0.0-1.8) 06/29/19 03:25 Lymph # 0.4 K/mm3 (1.2-5.4) L 06/29/19 03:25 [place] # 0.2 K/mm3 (0.0-0.8) 06/29/19 03:25 Eos # 0.0 K/mm3 (0.0-0.4) 06/29/19 03:25 Baso # 0.0 K/mm3 (0.0-0.1) 06/29/19 03:25 Add Manual Diff Complete 06/28/19 11:18 Total Counted 100 06/28/19 11:18 Seg Neutrophils % 89.6 % (40.0-70.0) H 06/29/19 03:25 Seg Neuts % (Manual) 93.0 % (40.0-70.0) H 06/28/19 11:18 Band Neutrophils % 1.0 % 06/28/19 11:18 Lymphocytes % (Manual) 4.0 % (13.4-35.0) L 06/28/19 11:18 Reactive Lymphs % (Man) 0 % 06/28/19 11:18 Monocytes % (Manual) 0 % (0.0-7.3) 06/28/19 11:18 Eosinophils % (Manual) 1.0 % (0.0-4.3) 06/28/19 11:18 Basophils % (Manual) 1.0 % (0.0-1.8) 06/28/19 11:18 Metamyelocytes % 0 % 06/28/19 11:18 Myelocytes % 0 % 06/28/19 11:18 Promyelocytes % 0 % 06/28/19 11:18 Blast Cells % 0 % 06/28/19 11:18 Nucleated RBC % Not Reportable 06/28/19 11:18 Seg Neutrophils # 5.5 K/mm3 (1.8-7.7) 06/29/19 03:25 Seg Neutrophils # Man 10.5 K/mm3 (1.8-7.7) H 06/28/19 11:18 Band Neutrophils # 0.1 K/mm3 06/28/19 11:18 Lymphocytes # (Manual) 0.5 K/mm3 (1.2-5.4) L 06/28/19 11:18 Abs React Lymphs (Man) 0.0 K/mm3 06/28/19 11:18 Monocytes # (Manual) 0.0 K/mm3 (0.0-0.8) 06/28/19 11:18 Eosinophils # (Manual) 0.1 K/mm3 (0.0-0.4) 06/28/19 11:18 Basophils # (Manual) 0.1 K/mm3 (0.0-0.1) 06/28/19 11:18 Metamyelocytes # 0.0 K/mm3 06/28/19 11:18 Myelocytes # 0.0 K/mm3 06/28/19 11:18 Promyelocytes # 0.0 K/mm3 06/28/19 11:18 Blast Cells # 0.0 K/mm3 06/28/19 11:18 WBC Morphology Not Reportable 06/28/19 11:18 Hypersegmented Neuts Not Reportable 06/28/19 11:18 Hyposegmented Neuts Not Reportable 06/28/19 11:18 Hypogranular Neuts Not Reportable 06/28/19 11:18 Smudge Cells Not Reportable 06/28/19 11:18 Toxic Granulation Not Reportable 06/28/19 11:18 Toxic Vacuolation Not Reportable 06/28/19 11:18 Dohle Bodies Not Reportable 06/28/19 11:18 Pelger-Huet Anomaly Not Reportable 06/28/19 11:18 Lili Rods Not Reportable 06/28/19 11:18 Platelet Estimate Consistent w auto 06/28/19 11:18 Clumped Platelets Not Reportable 06/28/19 11:18 Plt Clumps, EDTA Not Reportable 06/28/19 11:18 Large Platelets Not Reportable 06/28/19 11:18 Giant Platelets Not Reportable 06/28/19 11:18 Platelet Satelliting Not Reportable 06/28/19 11:18 Plt Morphology Comment Not Reportable 06/28/19 11:18 RBC Morphology Normal 06/28/19 11:18 Dimorphic RBCs Not Reportable 06/28/19 11:18 Polychromasia Not Reportable 06/28/19 11:18 Hypochromasia Not Reportable 06/28/19 11:18 Poikilocytosis Not Reportable 06/28/19 11:18 Anisocytosis Not Reportable 06/28/19 11:18 Microcytosis Not Reportable 06/28/19 11:18 Macrocytosis Not Reportable 06/28/19 11:18 Spherocytes Not Reportable 06/28/19 11:18 Pappenheimer Bodies Not Reportable 06/28/19 11:18 Sickle Cells Not Reportable 06/28/19 11:18 Target Cells Not Reportable 06/28/19 11:18 Tear Drop Cells Not Reportable 06/28/19 11:18 Ovalocytes Not Reportable 06/28/19 11:18 Helmet Cells Not Reportable 06/28/19 11:18 [place] Bodies Not Reportable 06/28/19 11:18 [place] Rings Not Reportable 06/28/19 11:18 [place] Cells Not Reportable 06/28/19 11:18 Bite Cells Not Reportable 06/28/19 11:18 Crenated Cell Not Reportable 06/28/19 11:18 Elliptocytes Not Reportable 06/28/19 11:18 Acanthocytes (Spur) Not Reportable 06/28/19 11:18 Rouleaux Not Reportable 06/28/19 11:18 Hemoglobin C Crystals Not Reportable 06/28/19 11:18 Schistocytes Not Reportable 06/28/19 11:18 Malaria parasites Not Reportable 06/28/19 11:18 [place] Bodies Not Reportable 06/28/19 11:18 Hem Pathologist Commnt No 06/28/19 11:18 Sodium 139 mmol/L (137-145) 06/29/19 03:25 Potassium 3.9 mmol/L (3.6-5.0) D 06/29/19 03:25 Chloride 101.7 mmol/L (98-107) 06/29/19 03:25 Carbon Dioxide 25 mmol/L (22-30) 06/29/19 03:25 Anion Gap 16 mmol/L 06/29/19 03:25 BUN 12 mg/dL (7-17) 06/29/19 03:25 Creatinine 0.5 mg/dL (0.7-1.2) L 06/29/19 03:25 Estimated GFR > 60 ml/min 06/29/19 03:25 BUN/Creatinine Ratio 24 % 06/29/19 03:25 Glucose 155 mg/dL (65-100) H 06/29/19 03:25 Calcium 9.8 mg/dL (8.4-10.2) 06/29/19 03:25 Total Bilirubin 0.30 mg/dL (0.1-1.2) 06/28/19 11:18 AST 10 units/L (5-40) 06/28/19 11:18 ALT 6 units/L (7-56) L 06/28/19 11:18 Alkaline Phosphatase 67 units/L (35-129) 06/28/19 11:18 Troponin T < 0.010 ng/mL (0.00-0.029) 06/28/19 11:18 NT-Pro-B Natriuret Pep 121.6 pg/mL (0-450) 06/28/19 11:18 Total Protein 7.8 g/dL (6.3-8.2) 06/28/19 11:18 Albumin 4.1 g/dL (3.9-5) 06/28/19 11:18 Albumin/Globulin Ratio 1.1 % 06/28/19 11:18 Active Medications - Current Medications Current Medications: Generic Name Dose Route Start Last Admin Trade Name Freq PRN Reason Stop Dose Admin Acetaminophen 650 mg 06/28/19 12:49 Tylenol PO Q4H PRN Pain MILD(1-3)/Fever >100.5/CESAR Albuterol 2.5 mg 06/28/19 12:49 06/29/19 14:33 Proventil IH 2.5 mg Q4HRT PRN Administration Shortness Of Breath Arformoterol Tartrate 15 mcg 06/28/19 20:00 06/29/19 09:25 Brovana Nebu IH 15 mcg Q12HRT DARIUSZ Administration Aspirin 325 mg 06/29/19 10:00 06/29/19 10:08 Aspirin PO 325 mg QDAY DARIUSZ Administration Budesonide 0.5 mg 06/28/19 20:00 06/29/19 09:25 Pulmicort IH 0.5 mg Q12HRT DARIUSZ Administration Diazepam 2 mg 06/28/19 17:37 06/29/19 10:46 Valium PO 2 mg Q12H PRN Administration Anxiety Famotidine 10 mg 06/28/19 22:00 06/29/19 10:08 Pepcid PO 10 mg BID DARIUSZ Administration Heparin Sodium (Porcine) 5,000 unit 06/28/19 22:00 06/29/19 10:08 Heparin SUB-Q 5,000 unit Q12HR DARIUSZ Administration Hydrochlorothiazide 12.5 mg 06/29/19 10:00 06/29/19 10:08 Hctz PO 12.5 mg QDAY DARIUSZ Administration Azithromycin 500 mg/ Sodium 250 mls @ 250 mls/hr 06/28/19 15:00 06/29/19 10:08 Chloride IV 250 mls/hr Q24HR DARIUSZ Administration Protocol Ipratropium [place] 0.5 mg 06/28/19 14:00 06/29/19 14:33 Atrovent IH 0.5 mg Q6HRT DARIUSZ Administration Methylprednisolone Sodium Succinate 40 mg 06/28/19 22:00 06/29/19 10:08 Solu-Medrol IV 40 mg Q12HR DARIUSZ Administration Naproxen 500 mg 06/28/19 12:45 Naproxen PO BID PRN arthritis pain Ondansetron HCl 4 mg 06/28/19 12:49 Zofran IV Q8H PRN Nausea And Vomiting Sodium Chloride 10 ml 06/28/19 22:00 06/29/19 10:08 Sodium Chloride Flush Syringe 10 Ml IV 10 ml BID DARIUSZ Administration Sodium Chloride 10 ml 06/28/19 12:49 Sodium Chloride Flush Syringe 10 Ml IV PRN PRN LINE FLUSH Nutrition/Malnutrition Assess - Dietary Evaluation Nutrition/Malnutrition Findings: Nutrition Notes Start: 06/29/19 12:28 Freq: Status: Active Protocol: Document 06/29/19 12:29 LM (Rec: 06/29/19 12:47 LM [email or web address]) Nutrition Notes Need for Assessment generated from: MD Order,entry driver operator,MST Initial or Follow up Assessment Current Diagnosis COPD,Hypertension,Heart Failure Other Pertinent Diagnosis asthma Current Diet cardiac Labs/Tests Reviewed Pertinent Medications Solumedrol Height 5 ft 8 in Weight 133.33 kg [place] Body Weight (kg) 63.63 BMI 44.6 Intake Prior to Admission Good Weight Status Morbidly Obese Subjective/Other Information MD consult for ONS. RN screen for MST. Pt stated that she did not eat breakfast and observed lunch tray untouched at time of visit. Pt stated that she has purposely lost 149 lb by diet and exercise but has gained 30 lb last month due to being on steroids last hospital admission. Pt stated she does not have much of an appetite and is trying not to eat much out of fear of gaining weight while being on a steroid again. Discussed importance of eating while in the hospital and encouraged pt to eat. Pt stated she will try to eat. Burn Absent Trauma Absent GI Symptoms None Current % PO Negligible Minimum of two criteria No physical signs of malnutrition #1 Nutrition Diagnosis Inadequate oral intake Etiology decreased appetite and pt not wanting to gain wt while on steroid As Evidenced by Signs and Symptoms 0% of breakfast and lunch tray consumed Is patient on ventilator? No Is Patient Ambulatory and/or Out of Bed Yes REE-([place] [facility]-ambulatory/OOB) [ 2537.840 NUTR.MSJOOB] Kcal/Kg value to use for calculation 15 Approximate Energy Requirements Using 2000 kcal/Kg Calculation Used for Recommendations Kcal/kg Additional Notes Protein: 78-98g (0.8-1g/kg AdjBW 98 kg) Fluid: 1 ml/kcal or per MD Nutrition Intervention Change Diet Order: Continue cardiac Goal #1 Meet at least 75% of energy and protein needs Anticipated Discharge Needs: Cardiac Follow-Up By: 07/03/19 Additional Comments F/U for PO intakes, ONS needs
[2019-06-30] MEDS: IPRATROPIUM 0.02% NEBU 2.5 ML IH SCH ×2 (01:25→07:20)
[2019-06-30] MEDS: ARFORMOTEROL 15 MCG/2 ML NEBU IH SCH ×2 (07:20→19:50)
[2019-06-30] MEDS: BUDESONIDE 0.5 MG/2 ML NEBU IH SCH ×2 (07:20→19:50)
--- NOTE | 2019-06-30 08:50 | Progress Note ---
Assessment and Plan Assessment and plan: Patient is a 43 yo AA woman with a history of Sarcodosis (recent dx), HTN, CHF, Asthma, chronic hypoxic respiratory failure on 4 lites of home O2 due to COPD and Obesity Hypoventilation who presents with SOB. She was treat with BIPAP. Acute hypoxic respiratory failure -Supplemental oxygen, nebulizer therapy, pulmonary team consulted, noninvasive positive pressure ventilation, chest x-ray, pulse oximetry, supportive care. Obesity hypoventilation syndrome -Supplemental oxygen, nebulizer therapy, balanced diet, increase physical activity at discharge, outpatient bariatric surgery consult, outpatient sleep study. CHF (congestive heart failure), acute on chronic diastolic heart failure est EF 55-60% -Strict I&O, daily weight, afterload reduction, supplemental oxygen, chest x- ray, blood pressure control, monitor urine output every shift COPD with acute exacerbation -Supplemental oxygen, nebulizer therapy, empiric IV antibiotic therapy, IV steroid therapy, IV magnesium, chest x-ray. HTN (hypertension) -Monitor blood pressure every shift, continue medical management DVT prophylaxis -SCD to bilateral lower extremities. Prophylactic heparin transfer out of [facility] anticipated d/c tomorrow History Interval history: Patient was seen and examined. Follow-up on current diagnosis AE COPD. Overnight uneventful. Patient denies any chest pain, nausea/vomiting or severe headaches. Imaging, nursing note, chart, labs and old chart reviewed. Discussed with patient. Hospitalist Physical - Physical exam Narrative exam: Gen: WDWN, bmi 44.7, NAD, Awake, Alert, Orientated HEENT: NCAT, EOMI, PERRL, OP Clear Neck: supple, no adenopathy, no thyromegaly, no JVD CVS/Heart: RRR, normal S1S2, pulses present bilaterally Chest/Lungs: diminished bs bilateral, Symmetrical chest expansion, good air entry bilaterally GI/Abdomen: soft, NTND, good bowel sounds, no guarding or rebound /Bladder: no suprapubic tenderness, no CVA or paraspinal tenderness Extermity/Skin: no c/c/e, no obvious rash MSK: FROM x 4 Neuro: CN 2-12 grossly intact, no new focal deficits Psych: calm - Constitutional Vitals: Temp Pulse Resp BP Pulse Ox 98.4 F 89 20 138/94 100 06/30/19 08:00 06/30/19 07:23 06/30/19 07:23 06/30/19 04:42 06/30/19 07:24 General appearance: Present: obese. Absent: mild distress Results - Labs CBC & Chem 7: 06/29/19 03:25 06/29/19 03:25 Labs: Laboratory Last Values WBC 6.1 K/mm3 (4.5-11.0) 06/29/19 03:25 RBC 4.15 M/mm3 (3.65-5.03) 06/29/19 03:25 Hgb 10.7 gm/dl (10.1-14.3) 06/29/19 03:25 Hct 32.6 % (30.3-42.9) 06/29/19 03:25 MCV 79 fl (79-97) 06/29/19 03:25 MCH 26 pg (28-32) L 06/29/19 03:25 MCHC 33 % (30-34) 06/29/19 03:25 RDW 15.5 % (13.2-15.2) H 06/29/19 03:25 Plt Count 307 K/mm3 (140-440) 06/29/19 03:25 Lymph % (Auto) 6.9 % (13.4-35.0) L 06/29/19 03:25 [place] % (Auto) 3.3 % (0.0-7.3) 06/29/19 03:25 Eos % (Auto) 0.0 % (0.0-4.3) 06/29/19 03:25 Baso % (Auto) 0.2 % (0.0-1.8) 06/29/19 03:25 Lymph # 0.4 K/mm3 (1.2-5.4) L 06/29/19 03:25 [place] # 0.2 K/mm3 (0.0-0.8) 06/29/19 03:25 Eos # 0.0 K/mm3 (0.0-0.4) 06/29/19 03:25 Baso # 0.0 K/mm3 (0.0-0.1) 06/29/19 03:25 Add Manual Diff Complete 06/28/19 11:18 Total Counted 100 06/28/19 11:18 Seg Neutrophils % 89.6 % (40.0-70.0) H 06/29/19 03:25 Seg Neuts % (Manual) 93.0 % (40.0-70.0) H 06/28/19 11:18 Band Neutrophils % 1.0 % 06/28/19 11:18 Lymphocytes % (Manual) 4.0 % (13.4-35.0) L 06/28/19 11:18 Reactive Lymphs % (Man) 0 % 06/28/19 11:18 Monocytes % (Manual) 0 % (0.0-7.3) 06/28/19 11:18 Eosinophils % (Manual) 1.0 % (0.0-4.3) 06/28/19 11:18 Basophils % (Manual) 1.0 % (0.0-1.8) 06/28/19 11:18 Metamyelocytes % 0 % 06/28/19 11:18 Myelocytes % 0 % 06/28/19 11:18 Promyelocytes % 0 % 06/28/19 11:18 Blast Cells % 0 % 06/28/19 11:18 Nucleated RBC % Not Reportable 06/28/19 11:18 Seg Neutrophils # 5.5 K/mm3 (1.8-7.7) 06/29/19 03:25 Seg Neutrophils # Man 10.5 K/mm3 (1.8-7.7) H 06/28/19 11:18 Band Neutrophils # 0.1 K/mm3 06/28/19 11:18 Lymphocytes # (Manual) 0.5 K/mm3 (1.2-5.4) L 06/28/19 11:18 Abs React Lymphs (Man) 0.0 K/mm3 06/28/19 11:18 Monocytes # (Manual) 0.0 K/mm3 (0.0-0.8) 06/28/19 11:18 Eosinophils # (Manual) 0.1 K/mm3 (0.0-0.4) 06/28/19 11:18 Basophils # (Manual) 0.1 K/mm3 (0.0-0.1) 06/28/19 11:18 Metamyelocytes # 0.0 K/mm3 06/28/19 11:18 Myelocytes # 0.0 K/mm3 06/28/19 11:18 Promyelocytes # 0.0 K/mm3 06/28/19 11:18 Blast Cells # 0.0 K/mm3 06/28/19 11:18 WBC Morphology Not Reportable 06/28/19 11:18 Hypersegmented Neuts Not Reportable 06/28/19 11:18 Hyposegmented Neuts Not Reportable 06/28/19 11:18 Hypogranular Neuts Not Reportable 06/28/19 11:18 Smudge Cells Not Reportable 06/28/19 11:18 Toxic Granulation Not Reportable 06/28/19 11:18 Toxic Vacuolation Not Reportable 06/28/19 11:18 Dohle Bodies Not Reportable 06/28/19 11:18 Pelger-Huet Anomaly Not Reportable 06/28/19 11:18 Lili Rods Not Reportable 06/28/19 11:18 Platelet Estimate Consistent w auto 06/28/19 11:18 Clumped Platelets Not Reportable 06/28/19 11:18 Plt Clumps, EDTA Not Reportable 06/28/19 11:18 Large Platelets Not Reportable 06/28/19 11:18 Giant Platelets Not Reportable 06/28/19 11:18 Platelet Satelliting Not Reportable 06/28/19 11:18 Plt Morphology Comment Not Reportable 06/28/19 11:18 RBC Morphology Normal 06/28/19 11:18 Dimorphic RBCs Not Reportable 06/28/19 11:18 Polychromasia Not Reportable 06/28/19 11:18 Hypochromasia Not Reportable 06/28/19 11:18 Poikilocytosis Not Reportable 06/28/19 11:18 Anisocytosis Not Reportable 06/28/19 11:18 Microcytosis Not Reportable 06/28/19 11:18 Macrocytosis Not Reportable 06/28/19 11:18 Spherocytes Not Reportable 06/28/19 11:18 Pappenheimer Bodies Not Reportable 06/28/19 11:18 Sickle Cells Not Reportable 06/28/19 11:18 Target Cells Not Reportable 06/28/19 11:18 Tear Drop Cells Not Reportable 06/28/19 11:18 Ovalocytes Not Reportable 06/28/19 11:18 Helmet Cells Not Reportable 06/28/19 11:18 [place] Bodies Not Reportable 06/28/19 11:18 [place] Rings Not Reportable 06/28/19 11:18 [place] Cells Not Reportable 06/28/19 11:18 Bite Cells Not Reportable 06/28/19 11:18 Crenated Cell Not Reportable 06/28/19 11:18 Elliptocytes Not Reportable 06/28/19 11:18 Acanthocytes (Spur) Not Reportable 06/28/19 11:18 Rouleaux Not Reportable 06/28/19 11:18 Hemoglobin C Crystals Not Reportable 06/28/19 11:18 Schistocytes Not Reportable 06/28/19 11:18 Malaria parasites Not Reportable 06/28/19 11:18 [place] Bodies Not Reportable 06/28/19 11:18 Hem Pathologist Commnt No 06/28/19 11:18 POC ABG pH 7.405 (7.35-7.45) 06/30/19 04:50 POC ABG pCO2 48.1 (35-45) H 06/30/19 04:50 POC ABG pO2 188 (80-105) H 06/30/19 04:50 POC ABG HCO3 30.2 (22-26 mml/L) 06/30/19 04:50 POC ABG Total CO2 32 (23-27mmol/L) 06/30/19 04:50 POC ABG O2 Sat 100 06/30/19 04:50 POC ABG Base Excess 5 ((-2) - (+3)mmol/L) 06/30/19 04:50 FiO2 40 % 06/30/19 04:50 Sodium 139 mmol/L (137-145) 06/29/19 03:25 Potassium 3.9 mmol/L (3.6-5.0) D 06/29/19 03:25 Chloride 101.7 mmol/L (98-107) 06/29/19 03:25 Carbon Dioxide 25 mmol/L (22-30) 06/29/19 03:25 Anion Gap 16 mmol/L 06/29/19 03:25 BUN 12 mg/dL (7-17) 06/29/19 03:25 Creatinine 0.5 mg/dL (0.7-1.2) L 06/29/19 03:25 Estimated GFR > 60 ml/min 06/29/19 03:25 BUN/Creatinine Ratio 24 % 06/29/19 03:25 Glucose 155 mg/dL (65-100) H 06/29/19 03:25 Calcium 9.8 mg/dL (8.4-10.2) 06/29/19 03:25 Total Bilirubin 0.30 mg/dL (0.1-1.2) 06/28/19 11:18 AST 10 units/L (5-40) 06/28/19 11:18 ALT 6 units/L (7-56) L 06/28/19 11:18 Alkaline Phosphatase 67 units/L (35-129) 06/28/19 11:18 Troponin T < 0.010 ng/mL (0.00-0.029) 06/28/19 11:18 NT-Pro-B Natriuret Pep 121.6 pg/mL (0-450) 06/28/19 11:18 Total Protein 7.8 g/dL (6.3-8.2) 06/28/19 11:18 Albumin 4.1 g/dL (3.9-5) 06/28/19 11:18 Albumin/Globulin Ratio 1.1 % 06/28/19 11:18 Active Medications - Current Medications Current Medications: Generic Name Dose Route Start Last Admin Trade Name Freq PRN Reason Stop Dose Admin Acetaminophen 650 mg 06/28/19 12:49 Tylenol PO Q4H PRN Pain MILD(1-3)/Fever >100.5/CESAR Albuterol 2.5 mg 06/28/19 12:49 06/29/19 14:33 Proventil IH 2.5 mg Q4HRT PRN Administration Shortness Of Breath Arformoterol Tartrate 15 mcg 06/28/19 20:00 06/30/19 07:20 Brovana Nebu IH 15 mcg Q12HRT DARIUSZ Administration Aspirin 325 mg 06/29/19 10:00 06/29/19 10:08 Aspirin PO 325 mg QDAY DARIUSZ Administration Budesonide 0.5 mg 06/28/19 20:00 06/30/19 07:20 Pulmicort IH 0.5 mg Q12HRT DARIUSZ Administration Diazepam 2 mg 06/28/19 17:37 06/29/19 22:27 Valium PO 2 mg Q12H PRN Administration Anxiety Famotidine 10 mg 06/28/19 22:00 06/29/19 22:27 Pepcid PO 10 mg BID DARIUSZ Administration Heparin Sodium (Porcine) 5,000 unit 06/28/19 22:00 06/29/19 22:28 Heparin SUB-Q 5,000 unit Q12HR DARIUSZ Administration Hydrochlorothiazide 12.5 mg 06/29/19 10:00 06/29/19 10:08 Hctz PO 12.5 mg QDAY DARIUSZ Administration Azithromycin 500 mg/ Sodium 250 mls @ 250 mls/hr 06/28/19 15:00 06/29/19 10:08 Chloride IV 250 mls/hr Q24HR DARIUSZ Administration Protocol Ipratropium [place] 0.5 mg 06/28/19 14:00 06/30/19 07:20 Atrovent IH 0.5 mg Q6HRT DARIUSZ Administration Methylprednisolone Sodium Succinate 40 mg 06/28/19 22:00 06/29/19 22:27 Solu-Medrol IV 40 mg Q12HR DARIUSZ Administration Naproxen 500 mg 06/28/19 12:45 Naproxen PO BID PRN arthritis pain Ondansetron HCl 4 mg 06/28/19 12:49 Zofran IV Q8H PRN Nausea And Vomiting Sodium Chloride 10 ml 06/28/19 22:00 06/29/19 22:28 Sodium Chloride Flush Syringe 10 Ml IV 10 ml BID DARIUSZ Administration Sodium Chloride 10 ml 06/28/19 12:49 Sodium Chloride Flush Syringe 10 Ml IV PRN PRN LINE FLUSH Nutrition/Malnutrition Assess - Dietary Evaluation Nutrition/Malnutrition Findings: Nutrition Notes Start: 06/29/19 12:28 Freq: Status: Active Protocol: Document 06/29/19 12:29 LM (Rec: 06/29/19 12:47 LM [email or web address]) Nutrition Notes Need for Assessment generated from: MD Order,mission worker,MST Initial or Follow up Assessment Current Diagnosis COPD,Hypertension,Heart Failure Other Pertinent Diagnosis asthma Current Diet cardiac Labs/Tests Reviewed Pertinent Medications Solumedrol Height 5 ft 8 in Weight 133.33 kg [place] Body Weight (kg) 63.63 BMI 44.6 Intake Prior to Admission Good Weight Status Morbidly Obese Subjective/Other Information MD consult for ONS. RN screen for MST. Pt stated that she did not eat breakfast and observed lunch tray untouched at time of visit. Pt stated that she has purposely lost 149 lb by diet and exercise but has gained 30 lb last month due to being on steroids last hospital admission. Pt stated she does not have much of an appetite and is trying not to eat much out of fear of gaining weight while being on a steroid again. Discussed importance of eating while in the hospital and encouraged pt to eat. Pt stated she will try to eat. Burn Absent Trauma Absent GI Symptoms None Current % PO Negligible Minimum of two criteria No physical signs of malnutrition #1 Nutrition Diagnosis Inadequate oral intake Etiology decreased appetite and pt not wanting to gain wt while on steroid As Evidenced by Signs and Symptoms 0% of breakfast and lunch tray consumed Is patient on ventilator? No Is Patient Ambulatory and/or Out of Bed Yes REE-([place]-ambulatory/OOB) [ 2647.840 NUTR.MSJOOB] Kcal/Kg value to use for calculation 15 Approximate Energy Requirements Using 2000 kcal/Kg Calculation Used for Recommendations Kcal/kg Additional Notes Protein: 78-98g (0.8-1g/kg AdjBW 98 kg) Fluid: 1 ml/kcal or per MD Nutrition Intervention Change Diet Order: Continue cardiac Goal #1 Meet at least 75% of energy and protein needs Anticipated Discharge Needs: Cardiac Follow-Up By: 07/03/19 Additional Comments F/U for PO intakes, ONS needs
--- NOTE | 2019-06-30 09:44 | Progress Note ---
Subjective Date of service: 06/30/19 Objective Vital Signs - 12hr 06/29/19 06/29/19 06/29/19 22:00 22:21 23:00 Temperature Pulse Rate 92 H 127 H 89 Pulse Rate [ Bilateral] Pulse Rate [ From Monitor] Pulse Rate [ Left Lower Lobe ] Respiratory 19 19 15 Rate Respiratory Rate [Bilateral ] Respiratory Rate [Left Lower Lobe] Blood Pressure 151/93 151/93 146/95 O2 Sat by Pulse 96 100 93 Oximetry 06/29/19 06/29/19 06/30/19 23:33 23:54 00:01 Temperature 98.5 F Pulse Rate 77 Pulse Rate [ Bilateral] Pulse Rate [ From Monitor] Pulse Rate [ Left Lower Lobe ] Respiratory 22 17 Rate Respiratory Rate [Bilateral ] Respiratory Rate [Left Lower Lobe] Blood Pressure 123/76 O2 Sat by Pulse 96 97 Oximetry 06/30/19 06/30/19 06/30/19 01:00 01:27 01:35 Temperature Pulse Rate 85 69 Pulse Rate [ 87 Bilateral] Pulse Rate [ From Monitor] Pulse Rate [ Left Lower Lobe ] Respiratory 18 18 Rate Respiratory 20 Rate [Bilateral ] Respiratory Rate [Left Lower Lobe] Blood Pressure 130/81 130/81 O2 Sat by Pulse 96 100 Oximetry 06/30/19 06/30/19 06/30/19 02:00 03:00 03:37 Temperature 98.5 F Pulse Rate 79 87 Pulse Rate [ Bilateral] Pulse Rate [ From Monitor] Pulse Rate [ Left Lower Lobe ] Respiratory 19 17 Rate Respiratory Rate [Bilateral ] Respiratory Rate [Left Lower Lobe] Blood Pressure 141/91 136/87 O2 Sat by Pulse 98 97 Oximetry 06/30/19 06/30/19 06/30/19 04:00 04:42 05:00 Temperature Pulse Rate 75 80 78 Pulse Rate [ Bilateral] Pulse Rate [ From Monitor] Pulse Rate [ Left Lower Lobe ] Respiratory 17 23 18 Rate Respiratory Rate [Bilateral ] Respiratory Rate [Left Lower Lobe] Blood Pressure 138/94 138/94 136/92 O2 Sat by Pulse 99 100 100 Oximetry 06/30/19 06/30/19 06/30/19 06:01 07:00 07:23 Temperature Pulse Rate 81 84 Pulse Rate [ 87 Bilateral] Pulse Rate [ From Monitor] Pulse Rate [ 89 Left Lower Lobe ] Respiratory 16 20 Rate Respiratory 20 Rate [Bilateral ] Respiratory 20 Rate [Left Lower Lobe] Blood Pressure 141/95 148/98 O2 Sat by Pulse 98 98 Oximetry 06/30/19 06/30/19 06/30/19 07:24 08:00 09:01 Temperature 98.4 F Pulse Rate 80 70 Pulse Rate [ Bilateral] Pulse Rate [ 85 From Monitor] Pulse Rate [ Left Lower Lobe ] Respiratory 24 17 Rate Respiratory Rate [Bilateral ] Respiratory Rate [Left Lower Lobe] Blood Pressure 140/101 140/101 O2 Sat by Pulse 100 98 100 Oximetry Constitutional: alert, agitated, appears uncomfortable, other (Moderate respiratory distress. Anxious.) Eyes: non-icteric ENT: oropharynx moist Neck: supple, no JVD Ascultation: Bilateral: diminished breath sounds, wheezes, rhonchi Cardiovascular: regular rate and rhythm Gastrointestinal: normoactive bowel sounds, soft, non-tender Integumentary: normal Extremities: no cyanosis, no edema Neurologic: non-focal exam, pupils equal and round, CN II-XII normal Psychiatric: anxious CBC and BMP: 06/29/19 03:25 06/29/19 03:25 ABG, PT/INR, D-dimer: ABG POC ABG pH 7.405 (7.35-7.45) 06/30/19 04:50 POC ABG pCO2 48.1 (35-45) H 06/30/19 04:50 POC ABG pO2 188 (80-105) H 06/30/19 04:50 POC ABG HCO3 30.2 (22-26 mml/L) 06/30/19 04:50 POC ABG Total CO2 32 (23-27mmol/L) 06/30/19 04:50 POC ABG O2 Sat 100 06/30/19 04:50 Abnormal lab findings: Abnormal Labs 06/28/19 06/28/19 06/29/19 11:18 11:18 03:25 WBC 11.3 H MCH 26 L 26 L RDW 15.3 H 15.5 H Lymph % (Auto) 6.9 L Lymph # 0.4 L Seg Neutrophils % 89.6 H Seg Neuts % (Manual) 93.0 H Lymphocytes % (Manual) 4.0 L Seg Neutrophils # Man 10.5 H Lymphocytes # (Manual) 0.5 L POC ABG pCO2 POC ABG pO2 Potassium 3.2 L Carbon Dioxide 20 L Creatinine 0.5 L Glucose 133 H ALT 6 L 06/29/19 06/30/19 03:25 04:50 WBC MCH RDW Lymph % (Auto) Lymph # Seg Neutrophils % Seg Neuts % (Manual) Lymphocytes % (Manual) Seg Neutrophils # Man Lymphocytes # (Manual) POC ABG pCO2 48.1 H POC ABG pO2 188 H Potassium Carbon Dioxide Creatinine 0.5 L Glucose 155 H ALT
[2019-06-30] MEDS: AZITHROMYCIN 500 MG in SODIUM CHLORIDE 0.9% 250ML 250 ML IV SCH (10:45)
[2019-06-30] MEDS: hydroCHLOROthiazide 12.5 MG CAP PO SCH (10:45)
[2019-06-30] MEDS: HEPARIN 5,000 UNIT/1 ML VIAL SUB-Q SCH ×2 (10:45→22:31)
[2019-06-30] MEDS: METOPROLOL SUCCINATE XL 25 MG TAB PO SCH (10:46)
[2019-06-30] MEDS: BENZONATATE 100 MG CAP PO SCH ×3 (10:46→22:29)
[2019-06-30] MEDS: FAMOTIDINE 10 MG TAB PO SCH ×2 (10:46→22:29)
[2019-06-30] MEDS: methylPREDNISolone Sod Succinate 40 MG/1 ML INJ IV SCH ×2 (10:46→22:30)
[2019-06-30] MEDS: diazePAM 2 MG TAB PO PRN ×2 (10:53→22:30)
[2019-06-30] MEDS: IPRATROPIUM/ALBUTEROL SULFATE 3 ML AMPUL.NEB IH SCH ×3 (11:28→19:50)
[2019-07-01] MEDS: ALBUTEROL 2.5 MG/3 ML NEBU IH PRN (01:51)
[2019-07-01 06:09] LABS: Hematocrit 34.2 % (30.3-42.9); Hemoglobin 10.7 gm/dl (10.1-14.3); Mean Corpuscular HGB Conc 31 % (30-34); Mean Corpuscular Volume 80 fl (79-97); Platelet Count 324 K/mm3 (140-440); Red Blood Count 4.28 M/mm3 (3.65-5.03); Red Cell Distribution Width 15.8 % (13.2-15.2)
[2019-07-01] MEDS: BENZONATATE 100 MG CAP PO SCH (06:11)
[2019-07-01 06:25] LABS: BUN/Creatinine Ratio 34; Blood Urea Nitrogen 17 mg/dL (7-17); Calcium 9.2 mg/dL (8.4-10.2); Hemolysis Index 1
[2019-07-01] MEDS: ARFORMOTEROL 15 MCG/2 ML NEBU IH SCH (09:01)
[2019-07-01] MEDS: IPRATROPIUM/ALBUTEROL SULFATE 3 ML AMPUL.NEB IH SCH ×2 (09:01→12:29)
[2019-07-01] MEDS: BUDESONIDE 0.5 MG/2 ML NEBU IH SCH (09:02)
[2019-07-01] MEDS ORDERED: ASPIRIN 81 MG TAB CHEW PO SCH (10:00)
[2019-07-01] MEDS: HEPARIN 5,000 UNIT/1 ML VIAL SUB-Q SCH (10:17)
[2019-07-01] MEDS: AZITHROMYCIN 500 MG in SODIUM CHLORIDE 0.9% 250ML 250 ML IV SCH (11:15)
[2019-07-01] MEDS: hydroCHLOROthiazide 12.5 MG CAP PO SCH (11:15)
[2019-07-01] MEDS: diazePAM 2 MG TAB PO PRN (11:15)
[2019-07-01] MEDS: METOPROLOL SUCCINATE XL 25 MG TAB PO SCH (11:16)
[2019-07-01] MEDS: FAMOTIDINE 10 MG TAB PO SCH (11:16)
[2019-07-01] MEDS: methylPREDNISolone Sod Succinate 40 MG/1 ML INJ IV SCH (11:17)
[2019-07-01 12:06] VITALS: BP 143/92
--- NOTE | 2019-07-01 12:10 | Progress Note ---
Assessment and Plan patient alert, awake, breathing better today. Patient presently on 3L O2 saturating 100%. BiPAP standby in the room. No acute respiratory distress. - Patient Problems (1) Acute respiratory failure Status: Inactive Qualifiers: Respiratory failure complication: hypoxia Qualified Code(s): J96.01 - Acute respiratory failure with hypoxia Plan to address problem: BIPAP 20/10, rate 20, FIO2 30% O2 3 litres when not on BIPAP. Albuterol/atrovent aerosol treatments q 6 hours. Continue I/V solumedrol. Continue Zithromax. Continue S/C heparin. Continue Famotidine. (2) COPD with acute exacerbation Status: Acute Plan to address problem: BIPAP 20/10, rate 20, FIO2 40% ABGs on BIPAP. Albuterol/atrovent aerosol treatments q 6 hours. Continue I/V solumedrol. Continue Zithromax. Continue S/C heparin. Continue Famotidine (3) Morbid obesity Status: Chronic Plan to address problem: Counselled to loose weight. Consult recruitment director for weight reduction diet. (4) Sleep apnea Status: Chronic Plan to address problem: BIPAP20/10, rate 20, FIO2 30% (5) Obesity hypoventilation syndrome Status: Acute Plan to address problem: BIPAP20/10, rate 20, FIO2 30% (6) Tobacco use Status: Chronic Plan to address problem: Counselled to stop smoking. Subjective Date of service: 07/01/19 Interval history: patient alert, awake, breathing better today. Patient presently on 3L O2 saturating 100%. BiPAP standby in the room. No acute respiratory distress. Objective Vital Signs - 12hr 07/01/19 07/01/19 07/01/19 01:50 04:20 04:29 Temperature 97.8 F Pulse Rate 64 69 Pulse Rate [ 65 Bilateral] Pulse Rate [ Left Lower Lobe ] Pulse Rate [ Right Lower Lobe] Respiratory 20 20 Rate Respiratory 20 Rate [Bilateral ] Respiratory Rate [Left Lower Lobe] Respiratory Rate [Right Lower Lobe] Blood Pressure 114/57 O2 Sat by Pulse 100 98 Oximetry 07/01/19 07/01/19 07/01/19 09:02 11:16 12:01 Temperature 98.4 F Pulse Rate 90 84 Pulse Rate [ 80 Bilateral] Pulse Rate [ 80 Left Lower Lobe ] Pulse Rate [ 80 Right Lower Lobe] Respiratory 16 Rate Respiratory 20 Rate [Bilateral ] Respiratory 20 Rate [Left Lower Lobe] Respiratory 22 Rate [Right Lower Lobe] Blood Pressure 130/82 143/92 O2 Sat by Pulse 100 100 Oximetry Constitutional: no acute distress, alert Eyes: non-icteric ENT: oropharynx moist Neck: supple, no JVD Ascultation: Bilateral: diminished breath sounds, wheezes, rhonchi Cardiovascular: regular rate and rhythm Gastrointestinal: normoactive bowel sounds, soft, non-tender Integumentary: normal Extremities: no cyanosis, no edema Neurologic: non-focal exam, pupils equal and round, CN II-XII normal Psychiatric: anxious CBC and BMP: 07/01/19 04:57 07/01/19 04:57 ABG, PT/INR, D-dimer: ABG POC ABG pH 7.405 (7.35-7.45) 06/30/19 04:50 POC ABG pCO2 48.1 (35-45) H 06/30/19 04:50 POC ABG pO2 188 (80-105) H 06/30/19 04:50 POC ABG HCO3 30.2 (22-26 mml/L) 06/30/19 04:50 POC ABG Total CO2 32 (23-27mmol/L) 06/30/19 04:50 POC ABG O2 Sat 100 06/30/19 04:50 Abnormal lab findings: Abnormal Labs 06/28/19 06/28/19 06/29/19 11:18 11:18 03:25 WBC 11.3 H MCH 26 L 26 L RDW 15.3 H 15.5 H Lymph % (Auto) 6.9 L Lymph # 0.4 L Seg Neutrophils % 89.6 H Seg Neuts % (Manual) 93.0 H Lymphocytes % (Manual) 4.0 L Seg Neutrophils # Man 10.5 H Lymphocytes # (Manual) 0.5 L POC ABG pCO2 POC ABG pO2 Potassium 3.2 L Carbon Dioxide 20 L Creatinine 0.5 L Glucose 133 H ALT 6 L 06/29/19 06/30/19 07/01/19 03:25 04:50 04:57 WBC MCH 25 L RDW 15.8 H Lymph % (Auto) Lymph # Seg Neutrophils % Seg Neuts % (Manual) Lymphocytes % (Manual) Seg Neutrophils # Man Lymphocytes # (Manual) POC ABG pCO2 48.1 H POC ABG pO2 188 H Potassium Carbon Dioxide Creatinine 0.5 L Glucose 155 H ALT 07/01/19 04:57 WBC MCH RDW Lymph % (Auto) Lymph # Seg Neutrophils % Seg Neuts % (Manual) Lymphocytes % (Manual) Seg Neutrophils # Man Lymphocytes # (Manual) POC ABG pCO2 POC ABG pO2 Potassium Carbon Dioxide Creatinine 0.5 L Glucose 117 H ALT
--- NOTE | 2019-07-01 13:15 | Discharge Summary ---
Providers - Providers Date of Admission: 06/28/19 12:40 Date of discharge: 07/01/19 Attending physician: WARREN PRIDE 06/28/19 13:22 Consult to Physician [CONS] Routine Comment: Consulting Provider: MEHDI COLUNGA Physician Instructions: Reason For Exam: respiratory failure Primary care physician: [facility], Hospitalization Condition: Stable Hospital course: Patient is a 43 yo AA woman with a history of SLE, Sarcodosis (recent dx), HTN, CHF, Asthma, [place] with cpap at home, chronic hypoxic respiratory failure on 4 lites of home O2 due to COPD and Obesity Hypoventilation who presents with SOB. She was treated successfully with BIPAP. She is back down to nasal canula. "" at bedside helping with needed home refill medications, it appears patient ran out of neb solution. Discharge Diagnoses: Acute on chronic hypoxic respiratory failure-Supplemental oxygen, nebulizer therapy, pulmonary team consulted, noninvasive positive pressure ventilation, chest x-ray, pulse oximetry, supportive care. Obesity hypoventilation syndrome-Supplemental oxygen, nebulizer therapy, balanced diet, increase physical activity at discharge, outpatient bariatric surgery consult, outpatient sleep study. CHF (congestive heart failure), acute on chronic diastolic heart failure est EF 55-60% COPD with acute exacerbation -Supplemental oxygen, nebulizer therapy, empiric IV antibiotic therapy, IV steroid therapy, IV magnesium, chest x-ray. HTN (hypertension) Morbid Obese, bmi 43.9 CPS: she asking for narcotics Anxiety disorder: she asking for refill for Valium Disposition: DC-01 TO HOME OR SELFCARE Time spent for discharge: 34 minutes Core Measure Documentation - Palliative Care Palliative Care/ Comfort Measures: Not Applicable - Core Measures Any of the following diagnoses?: none - VTE Discharge Requirements Deep Vein Thrombosis/Pulmonary Embolism Present on Admission: No Has pt received <5 days of overlap therapy or INR<2.0: No Anticoagulant overlap therapy prescribed at discharge: No Contraindication No Overlap Therapy order at DC: Not Indicated Exam - Physical Exam Narrative exam: Gen: WDWN, bmi 44.7, NAD, Awake, Alert, Orientated HEENT: NCAT, EOMI, PERRL, OP Clear Neck: supple, no adenopathy, no thyromegaly, no JVD CVS/Heart: RRR, normal S1S2, pulses present bilaterally Chest/Lungs: diminished bs bilateral, Symmetrical chest expansion, good air entry bilaterally GI/Abdomen: soft, NTND, good bowel sounds, no guarding or rebound /Bladder: no suprapubic tenderness, no CVA or paraspinal tenderness Extermity/Skin: no c/c/e, no obvious rash MSK: FROM x 4 Neuro: CN 2-12 grossly intact, no new focal deficits Psych: calm - Constitutional Vitals: Temp Pulse Resp BP Pulse Ox 98.4 F 88 20 143/92 100 07/01/19 12:01 07/01/19 12:29 07/01/19 12:29 07/01/19 12:01 07/01/19 12:01 Plan Activity: other (no strenous activity unless cleared by PCP) Diet: low salt Follow up with: NORM WAGNERMINERAL MD JENNIFER [Primary Care Provider] - 7 Days Prescriptions: Fluticasone/Vilanterol [Breo Ellipta 200-25 Mcg INH] 1 each IH BID #1 blst.w.dev Arformoterol Nebu [Brovana Nebu] 15 mcg IH Q12HRT #30 ml Ipratropium/Albuterol Sulfate [DUONEB *Not for PRN Use*] 1 ampul IH BID #30 ampul.neb methylPREDNISolone [Medrol 4MG DOSEPAK (21 tabs)] 1 dose PO DAILY #1 pack HYDROcodone/APAP 10-325 [Justice 10/325] 1 each PO Q6HR PRN #20 tablet PRN Reason: Pain , Severe (7-10) ALBUTEROL NEB's [Proventil 0.083% NEBS] 2.5 mg IH Q4HRT PRN #30 nebu PRN Reason: Shortness Of Breath Budesonide [Pulmicort Respules] 0.5 mg IH Q12HRT #30 nebu Benzonatate [Tessalon Perles] 100 mg PO Q8HR #15 capsule diazePAM TAB [Valium] 2 mg PO Q12H PRN #20 tablet PRN Reason: Anxiety Azithromycin [Zithromax Z-VISHAL] 1 mg PO DAILY #2 tab
== END 2019-07-01 14:00 | disposition home or self-care (01) | DRG 189 ==
LOC: ED 09:42 → IMCU 12:40 → 3A 06-30 13:15
PROVIDERS: ADMIT Internal Medicine; ATTEND Internal Medicine
PROC: 5A09357 Assistance with Respiratory Ventilation, Less than 24 Consecutive Hours, Continuous Positive Airway Pressure (ICD-10-PCS; 2019-06-28)
PROC: 5A09357 Assistance with Respiratory Ventilation, Less than 24 Consecutive Hours, Continuous Positive Airway Pressure (ICD-10-PCS; 2019-06-29)
PROC: 4A033R1 Measurement of Arterial Saturation, Peripheral, Percutaneous Approach (ICD-10-PCS; principal; 2019-06-30)
PROC: 5A09357 Assistance with Respiratory Ventilation, Less than 24 Consecutive Hours, Continuous Positive Airway Pressure (ICD-10-PCS; 2019-06-30)
PROC: 5A09357 Assistance with Respiratory Ventilation, Less than 24 Consecutive Hours, Continuous Positive Airway Pressure (ICD-10-PCS; 2019-07-01)
DX: J96.21 Acute and chronic respiratory failure with hypoxia (principal); I11.0 Hypertensive heart disease with heart failure; J44.1 Chronic obstructive pulmonary disease with (acute) exacerbation; M19.90 Unspecified osteoarthritis, unspecified site; E66.2 Morbid (severe) obesity with alveolar hypoventilation; I50.43 Acute on chronic combined systolic (congestive) and diastolic (congestive) heart failure; F41.9 Anxiety disorder, unspecified; Z79.84 Long term (current) use of oral hypoglycemic drugs; Z79.82 Long term (current) use of aspirin; Z68.41 Body mass index [BMI] 40.0-44.9, adult
CPT/HCPCS: 36415; 71045; 80048; 80053; 82803; 83880; 84484; 85007; 85025; 85027; 87040; 93005; 93010; 94640; 94644; 94660; 94760; 96365; 96366; 96375; G0378; J0456; J1644; J1940; J2060; J2920; J2930; J3475; J7050

== ENCOUNTER 2019-08-02 13:10 | Observation (INO) | payer MEDICAID ==
[2019-08-02] MEDS ORDERED: IPRATROPIUM 0.02% NEBU 2.5 ML IH ONE (14:56)
[2019-08-02] MEDS ORDERED: ALBUTEROL 2.5 MG/3 ML NEBU IH ONE (14:56)
[2019-08-02] MEDS ORDERED: methylPREDNISolone Sod Succinate 125 MG/2 ML INJ IV ONE (14:56)
--- NOTE | 2019-08-02 15:07 | Emergency Department Report ---
ED General Adult HPI - General Chief complaint: Dyspnea/Respdistress Stated complaint: DIANNA Time Seen by Provider: 08/02/19 14:21 Source: EMS Mode of arrival: Ambulatory Limitations: No Limitations - History of Present Illness Initial comments: Patient presents to the emergency department with a chief complaint of increased shortness of breath for the last couple weeks. Patient states she has a history of congestive heart failure and COPD and wears 4 L of nasal cannula at home. It is difficult to get a history from the patient because she is not able to complete sentences due to her shortness of breath. She denies chest pain, abdominal pain, or headache. -: Gradual Severity scale (0 -10): 1 Quality: aching Consistency: constant Improves with: rest Worsens with: movement Associated Symptoms: denies other symptoms Treatments Prior to Arrival: none - Related Data Home Medications Medication Instructions Recorded Confirmed Last Taken hydroCHLOROthiazide [HCTZ] 25 mg PO DAILY 06/28/19 06/28/19 Unknown Previous Rx's Medication Instructions Recorded Last Taken Type Metoprolol Xl [Metoprolol 25 mg PO QDAY #30 tablet 02/17/19 05/08/19 10:00 Rx SUCCINATE ER TAB] ALBUTEROL NEB's [Proventil 0.083% 2.5 mg IH Q4HRT PRN #30 nebu 07/01/19 Unknown Rx NEBS] Arformoterol Nebu [Brovana Nebu] 15 mcg IH Q12HRT #30 ml 07/01/19 Unknown Rx Azithromycin [Zithromax Z-VISHAL] 1 mg PO DAILY #2 tab 07/01/19 Unknown Rx Benzonatate [Tessalon Perles] 100 mg PO Q8HR #15 capsule 07/01/19 Unknown Rx Budesonide [Pulmicort Respules] 0.5 mg IH Q12HRT #30 nebu 07/01/19 Unknown Rx Fluticasone/Vilanterol [Breo 1 each IH BID #1 blst.w.dev 07/01/19 Unknown Rx Ellipta 200-25 Mcg INH] HYDROcodone/APAP 10-325 [[place] 1 each PO Q6HR PRN #20 tablet 07/01/19 Unknown Rx 10/325] Ipratropium/Albuterol Sulfate 1 ampul IH BID #30 ampul.neb 07/01/19 Unknown Rx [DUONEB *Not for PRN Use*] diazePAM TAB [Valium] 2 mg PO Q12H PRN #20 tablet 07/01/19 Unknown Rx hydroCHLOROthiazide [HCTZ] 12.5 mg PO QDAY capsule 07/01/19 Unknown Rx methylPREDNISolone [Medrol 4MG 1 dose PO DAILY #1 pack 07/01/19 Unknown Rx DOSEPAK (21 tabs)] Allergies Allergy/AdvReac Type Severity Reaction Status Date / Time iodine Allergy Rash Verified 05/07/19 16:02 shellfish derived Allergy Rash Verified 05/07/19 16:02 ED Review of Systems ROS: Stated complaint: DIANNA Other details as noted in HPI Comment: All other systems reviewed and negative Constitutional: denies: chills, fever Eyes: denies: eye pain, eye discharge, vision change ENT: denies: ear pain, throat pain Respiratory: shortness of breath. denies: cough, wheezing Cardiovascular: denies: chest pain, palpitations Endocrine: no symptoms reported Gastrointestinal: denies: abdominal pain, nausea, diarrhea Genitourinary: denies: urgency, dysuria, discharge Musculoskeletal: denies: back pain, joint swelling, arthralgia Skin: denies: rash, lesions Neurological: denies: headache, weakness, paresthesias Psychiatric: denies: anxiety, depression Hematological/Lymphatic: denies: easy bleeding, easy bruising ED Past Medical Hx - Past Medical History Previous Medical History?: Yes Hx Hypertension: Yes Hx Congestive Heart Failure: Yes Hx Diabetes: No Hx Sickle Cell Disease: No Hx Arthritis: Yes Hx Asthma: Yes Hx COPD: Yes Hx HIV: No Additional medical history: Sleep Apnea,.Morbid Obesity - Surgical History Past Surgical History?: Yes Additional Surgical History: x 3, orthopedic (arch replacement) [facility] 05/17/19 - Social History Smoking Status: Light Tobacco Smoker Substance Use Type: None - Medications Home Medications: Home Medications Medication Instructions Recorded Confirmed Last Taken Type Metoprolol Xl [Metoprolol 25 mg PO QDAY #30 tablet 02/17/19 06/28/19 05/08/19 10:00 Rx SUCCINATE ER TAB] hydroCHLOROthiazide [HCTZ] 25 mg PO DAILY 06/28/19 06/28/19 Unknown History ALBUTEROL NEB's [Proventil 0.083% 2.5 mg IH Q4HRT PRN #30 nebu 07/01/19 Unknown Rx NEBS] Arformoterol Nebu [Brovana Nebu] 15 mcg IH Q12HRT #30 ml 07/01/19 Unknown Rx Azithromycin [Zithromax Z-VISHAL] 1 mg PO DAILY #2 tab 07/01/19 Unknown Rx Benzonatate [Tessalon Perles] 100 mg PO Q8HR #15 capsule 07/01/19 Unknown Rx Budesonide [Pulmicort Respules] 0.5 mg IH Q12HRT #30 nebu 07/01/19 Unknown Rx Fluticasone/Vilanterol [Breo 1 each IH BID #1 blst.w.dev 07/01/19 Unknown Rx Ellipta 200-25 Mcg INH] HYDROcodone/APAP 10-325 [[place] 1 each PO Q6HR PRN #20 tablet 07/01/19 Unknown Rx 10/325] Ipratropium/Albuterol Sulfate 1 ampul IH BID #30 ampul.neb 07/01/19 Unknown Rx [DUONEB *Not for PRN Use*] diazePAM TAB [Valium] 2 mg PO Q12H PRN #20 tablet 07/01/19 Unknown Rx hydroCHLOROthiazide [HCTZ] 12.5 mg PO QDAY capsule 07/01/19 Unknown Rx methylPREDNISolone [Medrol 4MG 1 dose PO DAILY #1 pack 07/01/19 Unknown Rx DOSEPAK (21 tabs)] ED Physical Exam - General Limitations: No Limitations General appearance: alert, in no apparent distress - Head Head exam: Present: atraumatic, normocephalic - Eye Eye exam: Present: normal appearance - ENT ENT exam: Present: mucous membranes moist - Neck Neck exam: Present: normal inspection - Respiratory Respiratory exam: Present: other (diminished breath sounds throughout). Absent: respiratory distress - Cardiovascular Cardiovascular Exam: Present: regular rate, normal rhythm. Absent: systolic murmur, diastolic murmur, rubs, gallop - GI/Abdominal GI/Abdominal exam: Present: soft, normal bowel sounds. Absent: distended, tenderness - Extremities Exam Extremities exam: Present: normal inspection - Back Exam Back exam: Present: normal inspection - Neurological Exam Neurological exam: Present: alert, oriented X3, CN II-XII intact. Absent: motor sensory deficit - Psychiatric Psychiatric exam: Present: normal affect, normal mood - Skin Skin exam: Present: warm, dry, intact, normal color. Absent: rash ED Course Vital Signs 08/02/19 08/02/19 08/02/19 13:18 13:24 13:30 Pulse Rate 82 84 Pulse Rate [ Bilateral] Respiratory 17 21 Rate Respiratory Rate [Bilateral ] Blood Pressure 143/88 141/88 Blood Pressure [Right] O2 Sat by Pulse 100 99 99 Oximetry 08/02/19 08/02/19 08/02/19 13:41 14:00 14:30 Pulse Rate 79 73 Pulse Rate [ Bilateral] Respiratory 14 16 Rate Respiratory Rate [Bilateral ] Blood Pressure 136/86 143/83 Blood Pressure [Right] O2 Sat by Pulse 99 99 100 Oximetry 08/02/19 08/02/19 08/02/19 15:00 15:30 16:00 Pulse Rate 68 75 79 Pulse Rate [ Bilateral] Respiratory 16 20 15 Rate Respiratory Rate [Bilateral ] Blood Pressure 142/91 135/82 142/91 Blood Pressure [Right] O2 Sat by Pulse 100 100 99 Oximetry 08/02/19 08/02/19 08/02/19 16:30 19:01 19:53 Pulse Rate 91 H 80 Pulse Rate [ 88 Bilateral] Respiratory 23 Rate Respiratory 22 Rate [Bilateral ] Blood Pressure 135/82 Blood Pressure 163/83 [Right] O2 Sat by Pulse 100 Oximetry ED Medical Decision Making - Lab Data Result diagrams: 08/02/19 15:03 08/02/19 15:11 Lab Results 08/02/19 08/02/19 08/02/19 Range/Units 15:03 15:03 15:03 WBC 8.1 (4.5-11.0) K/mm3 RBC 4.22 (3.65-5.03) M/mm3 Hgb 10.9 (10.1-14.3) gm/dl Hct 32.4 (30.3-42.9) % MCV 77 L (79-97) fl MCH 26 L (28-32) pg MCHC 34 (30-34) % RDW 15.6 H (13.2-15.2) % Plt Count 359 (140-440) K/mm3 Lymph % (Auto) 17.3 (13.4-35.0) % [place] % (Auto) 3.0 (0.0-7.3) % Eos % (Auto) 1.2 (0.0-4.3) % Baso % (Auto) 0.5 (0.0-1.8) % Lymph # 1.4 (1.2-5.4) K/mm3 [place] # 0.2 (0.0-0.8) K/mm3 Eos # 0.1 (0.0-0.4) K/mm3 Baso # 0.0 (0.0-0.1) K/mm3 Seg Neutrophils % 78.0 H (40.0-70.0) % Seg Neutrophils # 6.3 (1.8-7.7) K/mm3 PT (12.2-14.9) Sec. INR (0.87-1.13) APTT (24.2-36.6) Sec. Sodium (137-145) mmol/L Potassium (3.6-5.0) mmol/L Chloride (98-107) mmol/L Carbon Dioxide (22-30) mmol/L Anion Gap mmol/L BUN (7-17) mg/dL Creatinine (0.7-1.2) mg/dL Estimated GFR ml/min BUN/Creatinine Ratio % Glucose (65-100) mg/dL Calcium (8.4-10.2) mg/dL Magnesium (1.7-2.3) mg/dL Total Bilirubin (0.1-1.2) mg/dL AST (5-40) units/L ALT (7-56) units/L Alkaline Phosphatase (35-129) units/L Troponin T < 0.010 (0.00-0.029) ng/mL NT-Pro-B Natriuret Pep 348.7 (0-450) pg/mL Total Protein (6.3-8.2) g/dL Albumin (3.9-5) g/dL Albumin/Globulin Ratio % 08/02/19 08/02/19 08/02/19 Range/Units 15:11 15:12 17:12 WBC (4.5-11.0) K/mm3 RBC (3.65-5.03) M/mm3 Hgb (10.1-14.3) gm/dl Hct (30.3-42.9) % MCV (79-97) fl MCH (28-32) pg MCHC (30-34) % RDW (13.2-15.2) % Plt Count (140-440) K/mm3 Lymph % (Auto) (13.4-35.0) % [place] % (Auto) (0.0-7.3) % Eos % (Auto) (0.0-4.3) % Baso % (Auto) (0.0-1.8) % Lymph # (1.2-5.4) K/mm3 [place] # (0.0-0.8) K/mm3 Eos # (0.0-0.4) K/mm3 Baso # (0.0-0.1) K/mm3 Seg Neutrophils % (40.0-70.0) % Seg Neutrophils # (1.8-7.7) K/mm3 PT 12.9 (12.2-14.9) Sec. INR 0.96 (0.87-1.13) APTT 32.6 (24.2-36.6) Sec. Sodium 142 (137-145) mmol/L Potassium 4.0 (3.6-5.0) mmol/L Chloride 105.2 (98-107) mmol/L Carbon Dioxide 26 (22-30) mmol/L Anion Gap 15 mmol/L BUN 17 (7-17) mg/dL Creatinine 0.5 L (0.7-1.2) mg/dL Estimated GFR > 60 ml/min BUN/Creatinine Ratio 34 % Glucose 116 H (65-100) mg/dL Calcium 9.2 (8.4-10.2) mg/dL Magnesium 2.20 (1.7-2.3) mg/dL Total Bilirubin < 0.20 (0.1-1.2) mg/dL AST 10 (5-40) units/L ALT 5 L (7-56) units/L Alkaline Phosphatase 65 (35-129) units/L Troponin T < 0.010 (0.00-0.029) ng/mL NT-Pro-B Natriuret Pep (0-450) pg/mL Total Protein 7.1 (6.3-8.2) g/dL Albumin 3.9 (3.9-5) g/dL Albumin/Globulin Ratio 1.2 % - EKG Data -: EKG Interpreted by Nv EKG shows normal: sinus rhythm Rate: normal - Radiology Data Radiology results: report reviewed - Medical Decision Making Patient received a continuous breathing treatment, IV steroids with no improvement of symptoms Patient received a DuoNeb treatment as well as 2 mg of magnesium The patient was ambulated with 4 L nasal cannula as well as a home and was not able to walk 50 feet without becoming extremely short of breath auto who O2 sat stayed 100% Patient will be admitted for to his breathing treatments and is unstable outpatient treatment due to her inability to ambulate for completion assist with speaking. Critical Care Time: Yes Critical care time in (mins) excluding proc time.: 45 Critical care attestation.: If time is entered above; I have spent that time in minutes in the direct care of this critically ill patient, excluding procedure time. ED Disposition Clinical Impression: COPD exacerbation Disposition: OP ADMIT IP TO THIS HOSP Is pt being admited?: Yes Does the pt Need Aspirin: No Condition: Fair Instructions: Chronic Obstructive Pulmonary Disease (ED)
[2019-08-02 15:29] LABS: Basophils % (Auto) 0.5 % (0.0-1.8); Eosinophils # (Auto) 0.1 K/mm3 (0.0-0.4); Eosinophils % (Auto) 1.2 % (0.0-4.3); Hematocrit 32.4 % (30.3-42.9); Hemoglobin 10.9 gm/dl (10.1-14.3); Lymphocytes # (Auto) 1.4 K/mm3 (1.2-5.4); Lymphocytes % (Auto) 17.3 % (13.4-35.0); Mean Corpuscular HGB Conc 34 % (30-34); Mean Corpuscular Volume 77 fl (79-97); Monocytes # (Auto) 0.2 K/mm3 (0.0-0.8); Platelet Count 359 K/mm3 (140-440); Red Blood Count 4.22 M/mm3 (3.65-5.03); Red Cell Distribution Width 15.6 % (13.2-15.2)
[2019-08-02 15:39] LABS: INR 0.96 (0.87-1.13)
[2019-08-02 15:40] LABS: Partial Thromboplastin Time 32.6 Sec. (24.2-36.6)
[2019-08-02 15:55] LABS: Alanine Aminotransferase 5 units/L (7-56); Albumin 3.9 g/dL (3.9-5); BUN/Creatinine Ratio 34; Blood Urea Nitrogen 17 mg/dL (7-17); Calcium 9.2 mg/dL (8.4-10.2); Hemolysis Index 0
--- NOTE | 2019-08-02 17:12 | XRay Report ---
CHEST 1 VIEW INDICATION / CLINICAL INFORMATION: Dyspnea. COMPARISON: 06/28/2019 FINDINGS: SUPPORT DEVICES: None. HEART / MEDIASTINUM: No significant abnormality. LUNGS / PLEURA: No significant pulmonary or pleural abnormality. No pneumothorax. ADDITIONAL FINDINGS: No significant additional findings. IMPRESSION: No acute pulmonary or pleural abnormality. No change from 06/28/2019 Signer Name: Sunny Urrutia MD FACR Signed: 08/02/2019 5:07 PM Workstation Name: [id number]
[2019-08-02] MEDS ORDERED: methylPREDNISolone Sod Succinate 125 MG/2 ML INJ ONE (17:57)
[2019-08-02] MEDS ORDERED: MAGNESIUM SULFATE 2 GM/50 ML BAG IV ONE (19:30)
[2019-08-02] MEDS ORDERED: IPRATROPIUM/ALBUTEROL SULFATE 3 ML AMPUL.NEB IH ONE (19:30)
[2019-08-02] MEDS ORDERED: ACETAMINOPHEN 325 MG TAB PO PRN (20:38)
[2019-08-02] MEDS ORDERED: ALBUTEROL 2.5 MG/3 ML NEBU IH PRN (20:38)
[2019-08-02] MEDS ORDERED: ONDANSETRON 4 MG/2 ML INJ IV PRN (20:38)
--- NOTE | 2019-08-02 21:02 | History and Physical Report ---
History of Present Illness Date of examination: 08/02/19 Date of admission: 08/02/2019 Chief complaint: DIANNA History of present illness: 43-year-old -[place]is[place] female who is an ongoing smoker with history of hypertension, CHF, arthritis, COPD/asthma on 4 L home O2, JUDSON, obesity hypoventilation syndrome, and morbid obesity who presents to [facility] with difficulty breathing for the past day and a half. Patient states that she started experiencing difficulty breathing last night. At baseline patient uses 4 L continuous supplemental oxygen. This morning she did her nebulizer and inhaler treatments prior to going to work. 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 Throughout the day she noticed that her shortness of breath was getting worse. Even after using her rescue inhaler she was unable to catch her breath, and she tried increasing her oxygen delivery with no relief. She decided to come into the ED for further evaluation and treatment. Denies fever, cough, hemoptysis, discolored sputum production, headache, or chest pain. Will admit as OBS for COPD exacerbation and consult Pulmonary. Review of medical shows pt was admitted in June 2019 for respiratory distress. Past History Past Medical History: arthritis, COPD (Asthma, on 4L home O2), heart failure, hypertension, other (JUDSON, obesity hypoventilation syndrome, morbid obesity) Past Surgical History: (x3), Other (orthopedic (arch replacement) [facility] 05/17/19) Social history: , lives with family, smoking (Smokes 4 to 6 cigarettes/day) Family history: no significant family history Medications and Allergies Allergies Allergy/AdvReac Type Severity Reaction Status Date / Time iodine Allergy Rash Verified 05/07/19 16:02 shellfish derived Allergy Rash Verified 05/07/19 16:02 Home Medications Medication Instructions Recorded Confirmed Last Taken Type Metoprolol Xl [Metoprolol 25 mg PO QDAY #30 tablet 02/17/19 06/28/19 05/08/19 10:00 Rx SUCCINATE ER TAB] hydroCHLOROthiazide [HCTZ] 25 mg PO DAILY 06/28/19 06/28/19 Unknown History ALBUTEROL NEB's [Proventil 0.083% 2.5 mg IH Q4HRT PRN #30 nebu 07/01/19 Unknown Rx NEBS] Arformoterol Nebu [Brovana Nebu] 15 mcg IH Q12HRT #30 ml 07/01/19 Unknown Rx Azithromycin [Zithromax Z-VISHAL] 1 mg PO DAILY #2 tab 07/01/19 Unknown Rx Benzonatate [Tessalon Perles] 100 mg PO Q8HR #15 capsule 07/01/19 Unknown Rx Budesonide [Pulmicort Respules] 0.5 mg IH Q12HRT #30 nebu 07/01/19 Unknown Rx Fluticasone/Vilanterol [Breo 1 each IH BID #1 blst.w.dev 07/01/19 Unknown Rx Ellipta 200-25 Mcg INH] HYDROcodone/APAP 10-325 [[place] 1 each PO Q6HR PRN #20 tablet 07/01/19 Unknown Rx 10/325] Ipratropium/Albuterol Sulfate 1 ampul IH BID #30 ampul.neb 07/01/19 Unknown Rx [DUONEB *Not for PRN Use*] diazePAM TAB [Valium] 2 mg PO Q12H PRN #20 tablet 07/01/19 Unknown Rx hydroCHLOROthiazide [HCTZ] 12.5 mg PO QDAY capsule 07/01/19 Unknown Rx methylPREDNISolone [Medrol 4MG 1 dose PO DAILY #1 pack 07/01/19 Unknown Rx DOSEPAK (21 tabs)] Active Meds: Active Medications Acetaminophen (Tylenol) 650 mg PO Q4H PRN PRN Reason: Pain MILD(1-3)/Fever >100.5/CESAR Albuterol (Proventil) 2.5 mg IH Q3HRT PRN PRN Reason: Shortness Of Breath Albuterol/Ipratropium (Duoneb *Not For Prn Use*) 1 ampul IH Q6HRT DARIUSZ Alprazolam (Xanax) 0.5 mg PO Q8H PRN PRN Reason: Anxiety Budesonide (Pulmicort) 0.5 mg IH Q12HRT DARIUSZ Docusate Sodium (Colace) 100 mg PO BID DARIUSZ Heparin Sodium (Porcine) (Heparin) 5,000 unit SUB-Q Q12HR DARIUSZ Hydrochlorothiazide (Hctz) 25 mg PO DAILY DARIUSZ Methylprednisolone Sodium Succinate (Solu-Medrol) 80 mg IV Q6H DARIUSZ Metoprolol Succinate (Metoprolol Xl) 25 mg PO QDAY DARIUSZ Ondansetron HCl (Zofran) 4 mg IV Q8H PRN PRN Reason: Nausea And Vomiting Oxycodone/Acetaminophen (Percocet 5/325) 1 tab PO Q6H PRN PRN Reason: Pain, Moderate (4-6) Sodium Chloride (Sodium Chloride Flush Syringe 10 Ml) 10 ml IV BID DARISUZ Sodium Chloride (Sodium Chloride Flush Syringe 10 Ml) 10 ml IV PRN PRN PRN Reason: LINE FLUSH Review of Systems All systems: negative Respiratory: shortness of breath, dyspnea on exertion, other (chest tightness) Exam - Physical Exam Narrative exam: Physical exam General appearance: Present: mild distress, alert and oriented 3, morbidly obese, pleasant, adult female - EENT Eyes: Present: PERRL, EOM intact ENT: hearing intact, normal dentition - Neck Neck: Present: supple, normal ROM - Respiratory Respiratory effort: Labored, on supplemental oxygen Respiratory: Wheezing, diminished bases, prolonged expiratory phase - Cardiovascular Heart rate: 76 (bpm) Rhythm: Sinus rhythm Heart Sounds: Present: S1 & S2. Absent: rub, click - Extremities Extremities: no ischemia, pulses intact, - Peripheral Assessment Peripheral Pulses: within normal limits - Abdominal General gastrointestinal: Obese, soft, non-tender, normal bowel sounds - Integumentary Integumentary: Present: warm, dry - Musculoskeletal Musculoskeletal: Able to move all extremities -Neurological Neurological: CN II-XII intact - Psychiatric Psychiatric: cooperative - Constitutional Vitals: Temp Pulse Resp BP Pulse Ox 88 22 163/83 100 08/02/19 19:53 08/02/19 19:53 08/02/19 19:01 08/02/19 19:01 SEAMUS score - Seamus Score Age > 65: (0) No Aspirin use within the Past 7 Days: (1) Yes 3 or more CAD Risk Factors: (1) Yes 2 or more Angina events in past 24 hrs: (0) No Known CAD with more than 50% Stenosis: (0) No Elevated Cardiac Markers: (0) No ST Deviation Greater than 0.5mm: (0) No SEAMUS Score: 2 Results - Labs CBC & Chem 7: 08/02/19 15:03 08/02/19 15:11 Labs: Laboratory Last Values WBC 8.1 K/mm3 (4.5-11.0) 08/02/19 15:03 RBC 4.22 M/mm3 (3.65-5.03) 08/02/19 15:03 Hgb 10.9 gm/dl (10.1-14.3) 08/02/19 15:03 Hct 32.4 % (30.3-42.9) 08/02/19 15:03 MCV 77 fl (79-97) L 08/02/19 15:03 MCH 26 pg (28-32) L 08/02/19 15:03 MCHC 34 % (30-34) 08/02/19 15:03 RDW 15.6 % (13.2-15.2) H 08/02/19 15:03 Plt Count 359 K/mm3 (140-440) 08/02/19 15:03 Lymph % (Auto) 17.3 % (13.4-35.0) 08/02/19 15:03 [place] % (Auto) 3.0 % (0.0-7.3) 08/02/19 15:03 Eos % (Auto) 1.2 % (0.0-4.3) 08/02/19 15:03 Baso % (Auto) 0.5 % (0.0-1.8) 08/02/19 15:03 Lymph # 1.4 K/mm3 (1.2-5.4) 08/02/19 15:03 [place] # 0.2 K/mm3 (0.0-0.8) 08/02/19 15:03 Eos # 0.1 K/mm3 (0.0-0.4) 08/02/19 15:03 Baso # 0.0 K/mm3 (0.0-0.1) 08/02/19 15:03 Seg Neutrophils % 78.0 % (40.0-70.0) H 08/02/19 15:03 Seg Neutrophils # 6.3 K/mm3 (1.8-7.7) 08/02/19 15:03 PT 12.9 Sec. (12.2-14.9) 08/02/19 15:12 INR 0.96 (0.87-1.13) 08/02/19 15:12 APTT 32.6 Sec. (24.2-36.6) 08/02/19 15:12 Sodium 142 mmol/L (137-145) 08/02/19 15:11 Potassium 4.0 mmol/L (3.6-5.0) 08/02/19 15:11 Chloride 105.2 mmol/L (98-107) 08/02/19 15:11 Carbon Dioxide 26 mmol/L (22-30) 08/02/19 15:11 Anion Gap 15 mmol/L 08/02/19 15:11 BUN 17 mg/dL (7-17) 08/02/19 15:11 Creatinine 0.5 mg/dL (0.7-1.2) L 08/02/19 15:11 Estimated GFR > 60 ml/min 08/02/19 15:11 BUN/Creatinine Ratio 34 % 08/02/19 15:11 Glucose 116 mg/dL (65-100) H 08/02/19 15:11 Calcium 9.2 mg/dL (8.4-10.2) 08/02/19 15:11 Magnesium 2.20 mg/dL (1.7-2.3) 08/02/19 15:11 Total Bilirubin < 0.20 mg/dL (0.1-1.2) 08/02/19 15:11 AST 10 units/L (5-40) 08/02/19 15:11 ALT 5 units/L (7-56) L 08/02/19 15:11 Alkaline Phosphatase 65 units/L (35-129) 08/02/19 15:11 Troponin T < 0.010 ng/mL (0.00-0.029) 08/02/19 17:12 NT-Pro-B Natriuret Pep 348.7 pg/mL (0-450) 08/02/19 15:03 Total Protein 7.1 g/dL (6.3-8.2) 08/02/19 15:11 Albumin 3.9 g/dL (3.9-5) 08/02/19 15:11 Albumin/Globulin Ratio 1.2 % 08/02/19 15:11 - Imaging and Cardiology Imaging and Cardiology: CXR: FINDINGS: SUPPORT DEVICES: None. HEART / MEDIASTINUM: No significant abnormality. LUNGS / PLEURA: No significant pulmonary or pleural abnormality. No pneumothorax. ADDITIONAL FINDINGS: No significant additional findings. IMPRESSION: No acute pulmonary or pleural abnormality. No change from 06/28/2019 Assessment and Plan Assessment and plan: 43-year-old -[place] female who is an ongoing smoker with history of hypertension, CHF, arthritis, COPD/asthma on 4 L home O2, JUDSON, obesity hypoventilation syndrome, and morbid obesity who presents to [facility] with difficulty breathing for the past day and a half. Acute exacerbation COPD -Increased shortness of breath -Scheduled to DuoNebs and Pulmicort, albuterol when necessary -IV systemic steroids -Pulmonary consulted Chronic hypoxic respiratory failure -Baseline home oxygen requirements of 4L NC -Currently on 4L NC -Monitor saturations -Monitor CO2 -Continue supplemental oxygen wean as tolerated HTN -Monitor BP -Resume home hypertensive meds -IV hydralazine when necessary CHF -EF 50-55% seen on Echo 05/17/19 -Continue BB -Follows [facility] as outpatient Morbid Obesity -BMI 43.2kg -Diet and lifestyle modifications -May benefit from OP weight mgmt program Tobacco abuse -Current every day smoker -Smokes 4-6 cigarettes per day -Counseled for cessation for 8 minutes -Nicotine patch when necessary DVT PPX -On heparin Advance Directives: No VTE prophylaxis?: Chemical Plan of care discussed with patient/family: Yes
[2019-08-02] MEDS ORDERED: DOCUSATE SODIUM 100 MG CAP ONE (22:23)
[2019-08-02] MEDS ORDERED: HEPARIN 5,000 UNIT/1 ML VIAL ONE (22:23)
[2019-08-02] MEDS: DOCUSATE SODIUM 100 MG CAP PO SCH (22:28)
[2019-08-02] MEDS: HEPARIN 5,000 UNIT/1 ML VIAL SUB-Q SCH (22:28)
[2019-08-03] MEDS: methylPREDNISolone Sod Succinate 40 MG/1 ML INJ IV SCH ×5 (00:03→23:11)
[2019-08-03] MEDS: ALPRAZolam 0.5 MG TAB PO PRN ×2 (00:07→15:48)
[2019-08-03] MEDS: oxyCODONE /ACETAMINOPHEN 5-325MG TAB PO PRN ×3 (01:56→23:22)
[2019-08-03] MEDS: IPRATROPIUM/ALBUTEROL SULFATE 3 ML AMPUL.NEB IH SCH ×4 (02:25→20:06)
[2019-08-03 05:17] LABS: Hematocrit 34.4 % (30.3-42.9); Mean Corpuscular HGB Conc 32 % (30-34); Mean Corpuscular Volume 78 fl (79-97); Platelet Count 340 K/mm3 (140-440); Red Cell Distribution Width 15.5 % (13.2-15.2)
[2019-08-03 05:40] LABS: BUN/Creatinine Ratio 25; Blood Urea Nitrogen 15 mg/dL (7-17); Calcium 9.6 mg/dL (8.4-10.2); Hemolysis Index 1
[2019-08-03 06:46] LABS: Anisocytosis 1+; Basophils % (Manual) 0 % (0.0-1.8); Eosinophils % (Manual) 0 % (0.0-4.3); Hypochromasia 1+; Platelet Estimate Consistent w Auto; Total Cells Counted 100
[2019-08-03] MEDS: BUDESONIDE 0.5 MG/2 ML NEBU IH SCH ×3 (08:17→20:07)
[2019-08-03] MEDS ORDERED: hydroCHLOROthiazide 25 MG TAB PO SCH (10:00)
[2019-08-03] MEDS: METOPROLOL SUCCINATE XL 25 MG TAB PO SCH (10:41)
[2019-08-03] MEDS: HEPARIN 5,000 UNIT/1 ML VIAL SUB-Q SCH ×2 (10:42→23:12)
[2019-08-03] MEDS: DOCUSATE SODIUM 100 MG CAP PO SCH ×2 (10:42→23:12)
[2019-08-03] MEDS: NICOTINE 14 MG/24 HR PATCH TD SCH (10:42)
--- NOTE | 2019-08-03 14:57 | Progress Note ---
Assessment and Plan Assessment and plan: 43-year-old -Swazi female who is an ongoing smoker with history of hypertension, CHF, arthritis, COPD/asthma on 4 L home O2, JUDSON, obesity hypoventilation syndrome, and morbid obesity who presents to [facility] with difficulty breathing for the past day and a half. Acute on chronic Chronic hypoxic respiratory failure due to COPD exacerbation -Monitor saturations -Monitor CO2 -Continue supplemental oxygen wean as tolerated Pulm consulted Acute exacerbation COPD -Increased shortness of breath -Scheduled to DuoNebs and Pulmicort, albuterol when necessary -IV systemic steroids, solumedrol -Pulmonary consulted HTN -Monitor BP -Resume home hypertensive meds -IV hydralazine when necessary Chronic diastolic CHF -EF 50-55% seen on Echo 05/17/19 -Continue BB -Follows [facility] as outpatient Morbid Obesity -BMI 43.2kg -Diet and lifestyle modifications -May benefit from OP weight mgmt program Tobacco abuse -Current every day smoker -Smokes 4-6 cigarettes per day -Counseled for cessation for 8 minutes -Nicotine patch when necessary DVT PPX -On heparin History Interval history: Shortness of breath Hospitalist Physical - Physical exam Narrative exam: GEN: Not in acute distress, lying in bed, morbidly obese HEENT: Normocephalic, atraumatic, Neck: supple, No JVD Lungs: Bilateral rhonchi, wheezing, heart;S1 and S2 reg, no murmurs Abd: soft, non tender, non distended, normal bowel sounds Ext: No edema, no clubbing, no cyanosis Neuro: AAO X 3, no focal neurological signs - Constitutional Vitals: Temp Pulse Resp BP Pulse Ox 97.9 F 86 18 159/85 97 08/03/19 10:40 08/03/19 10:41 08/03/19 10:40 08/03/19 10:41 08/03/19 10:40 SEAMUS score - Seamus Score Age > 65: (0) No Aspirin use within the Past 7 Days: (1) Yes 3 or more CAD Risk Factors: (1) Yes 2 or more Angina events in past 24 hrs: (0) No Known CAD with more than 50% Stenosis: (0) No Elevated Cardiac Markers: (0) No ST Deviation Greater than 0.5mm: (0) No SEAMUS Score: 2 Results - Labs CBC & Chem 7: 08/03/19 04:20 08/03/19 04:20 Labs: Laboratory Last Values WBC 8.0 K/mm3 (4.5-11.0) 08/03/19 04:20 RBC 4.40 M/mm3 (3.65-5.03) 08/03/19 04:20 Hgb 11.0 gm/dl (10.1-14.3) 08/03/19 04:20 Hct 34.4 % (30.3-42.9) 08/03/19 04:20 MCV 78 fl (79-97) L 08/03/19 04:20 MCH 25 pg (28-32) L 08/03/19 04:20 MCHC 32 % (30-34) 08/03/19 04:20 RDW 15.5 % (13.2-15.2) H 08/03/19 04:20 Plt Count 340 K/mm3 (140-440) 08/03/19 04:20 Lymph % (Auto) 17.3 % (13.4-35.0) 08/02/19 15:03 [place] % (Auto) 3.0 % (0.0-7.3) 08/02/19 15:03 Eos % (Auto) 1.2 % (0.0-4.3) 08/02/19 15:03 Baso % (Auto) 0.5 % (0.0-1.8) 08/02/19 15:03 Lymph # 1.4 K/mm3 (1.2-5.4) 08/02/19 15:03 [place] # 0.2 K/mm3 (0.0-0.8) 08/02/19 15:03 Eos # 0.1 K/mm3 (0.0-0.4) 08/02/19 15:03 Baso # 0.0 K/mm3 (0.0-0.1) 08/02/19 15:03 Add Manual Diff Complete 08/03/19 04:20 Total Counted 100 08/03/19 04:20 Seg Neutrophils % Soup Mixer 08/03/19 04:20 Seg Neuts % (Manual) 95.0 % (40.0-70.0) H 08/03/19 04:20 Band Neutrophils % 0 % 08/03/19 04:20 Lymphocytes % (Manual) 4.0 % (13.4-35.0) L 08/03/19 04:20 Reactive Lymphs % (Man) 0 % 08/03/19 04:20 Monocytes % (Manual) 1.0 % (0.0-7.3) 08/03/19 04:20 Eosinophils % (Manual) 0 % (0.0-4.3) 08/03/19 04:20 Basophils % (Manual) 0 % (0.0-1.8) 08/03/19 04:20 Metamyelocytes % 0 % 08/03/19 04:20 Myelocytes % 0 % 08/03/19 04:20 Promyelocytes % 0 % 08/03/19 04:20 Blast Cells % 0 % 08/03/19 04:20 Nucleated RBC % Not Reportable 08/03/19 04:20 Seg Neutrophils # 6.3 K/mm3 (1.8-7.7) 08/02/19 15:03 Seg Neutrophils # Man 7.6 K/mm3 (1.8-7.7) 08/03/19 04:20 Band Neutrophils # 0.0 K/mm3 08/03/19 04:20 Lymphocytes # (Manual) 0.3 K/mm3 (1.2-5.4) L 08/03/19 04:20 Abs React Lymphs (Man) 0.0 K/mm3 08/03/19 04:20 Monocytes # (Manual) 0.1 K/mm3 (0.0-0.8) 08/03/19 04:20 Eosinophils # (Manual) 0.0 K/mm3 (0.0-0.4) 08/03/19 04:20 Basophils # (Manual) 0.0 K/mm3 (0.0-0.1) 08/03/19 04:20 Metamyelocytes # 0.0 K/mm3 08/03/19 04:20 Myelocytes # 0.0 K/mm3 08/03/19 04:20 Promyelocytes # 0.0 K/mm3 08/03/19 04:20 Blast Cells # 0.0 K/mm3 08/03/19 04:20 WBC Morphology Not Reportable 08/03/19 04:20 Hypersegmented Neuts Not Reportable 08/03/19 04:20 Hyposegmented Neuts Not Reportable 08/03/19 04:20 Hypogranular Neuts Not Reportable 08/03/19 04:20 Smudge Cells Not Reportable 08/03/19 04:20 Toxic Granulation Not Reportable 08/03/19 04:20 Toxic Vacuolation Not Reportable 08/03/19 04:20 Dohle Bodies Not Reportable 08/03/19 04:20 Pelger-Huet Anomaly Not Reportable 08/03/19 04:20 Lili Rods Not Reportable 08/03/19 04:20 Platelet Estimate Consistent w auto 08/03/19 04:20 Clumped Platelets Not Reportable 08/03/19 04:20 Plt Clumps, EDTA Not Reportable 08/03/19 04:20 Large Platelets Not Reportable 08/03/19 04:20 Giant Platelets Not Reportable 08/03/19 04:20 Platelet Satelliting Not Reportable 08/03/19 04:20 Plt Morphology Comment Not Reportable 08/03/19 04:20 RBC Morphology Not Reportable 08/03/19 04:20 Dimorphic RBCs Not Reportable 08/03/19 04:20 Polychromasia Not Reportable 08/03/19 04:20 Hypochromasia 1+ 08/03/19 04:20 Poikilocytosis Not Reportable 08/03/19 04:20 Anisocytosis 1+ 08/03/19 04:20 Microcytosis Not Reportable 08/03/19 04:20 Macrocytosis Not Reportable 08/03/19 04:20 Spherocytes Not Reportable 08/03/19 04:20 Pappenheimer Bodies Not Reportable 08/03/19 04:20 Sickle Cells Not Reportable 08/03/19 04:20 Target Cells Not Reportable 08/03/19 04:20 Tear Drop Cells Not Reportable 08/03/19 04:20 Ovalocytes Not Reportable 08/03/19 04:20 Helmet Cells Not Reportable 08/03/19 04:20 [place] Bodies Not Reportable 08/03/19 04:20 [place] Rings Not Reportable 08/03/19 04:20 Madie Cells Not Reportable 08/03/19 04:20 Bite Cells Not Reportable 08/03/19 04:20 Crenated Cell Not Reportable 08/03/19 04:20 Elliptocytes Not Reportable 08/03/19 04:20 Acanthocytes (Spur) Not Reportable 08/03/19 04:20 Rouleaux Not Reportable 08/03/19 04:20 Hemoglobin C Crystals Not Reportable 08/03/19 04:20 Schistocytes Not Reportable 08/03/19 04:20 Malaria parasites Not Reportable 08/03/19 04:20 Bruce Bodies Not Reportable 08/03/19 04:20 Hem Pathologist Commnt No 08/03/19 04:20 PT 12.9 Sec. (12.2-14.9) 08/02/19 15:12 INR 0.96 (0.87-1.13) 08/02/19 15:12 APTT 32.6 Sec. (24.2-36.6) 08/02/19 15:12 Sodium 143 mmol/L (137-145) 08/03/19 04:20 Potassium 4.3 mmol/L (3.6-5.0) 08/03/19 04:20 Chloride 105.6 mmol/L (98-107) 08/03/19 04:20 Carbon Dioxide 24 mmol/L (22-30) 08/03/19 04:20 Anion Gap 18 mmol/L 08/03/19 04:20 BUN 15 mg/dL (7-17) 08/03/19 04:20 Creatinine 0.6 mg/dL (0.7-1.2) L 08/03/19 04:20 Estimated GFR > 60 ml/min 08/03/19 04:20 BUN/Creatinine Ratio 25 % 08/03/19 04:20 Glucose 184 mg/dL (65-100) H 08/03/19 04:20 Calcium 9.6 mg/dL (8.4-10.2) 08/03/19 04:20 Magnesium 2.20 mg/dL (1.7-2.3) 08/02/19 15:11 Total Bilirubin < 0.20 mg/dL (0.1-1.2) 08/02/19 15:11 AST 10 units/L (5-40) 08/02/19 15:11 ALT 5 units/L (7-56) L 08/02/19 15:11 Alkaline Phosphatase 65 units/L (35-129) 08/02/19 15:11 Troponin T < 0.010 ng/mL (0.00-0.029) 08/02/19 17:12 NT-Pro-B Natriuret Pep 348.7 pg/mL (0-450) 08/02/19 15:03 Total Protein 7.1 g/dL (6.3-8.2) 08/02/19 15:11 Albumin 3.9 g/dL (3.9-5) 08/02/19 15:11 Albumin/Globulin Ratio 1.2 % 08/02/19 15:11 Active Medications - Current Medications Current Medications: Generic Name Dose Route Start Last Admin Trade Name Freq PRN Reason Stop Dose Admin Acetaminophen 650 mg 08/02/19 20:38 Tylenol PO Q4H PRN Pain MILD(1-3)/Fever >100.5/CESAR Albuterol 2.5 mg 08/02/19 20:38 08/03/19 00:10 Proventil IH 2.5 mg Q3HRT PRN Administration Shortness Of Breath Albuterol/Ipratropium 1 ampul 08/03/19 02:00 08/03/19 08:17 Duoneb *Not For Prn Use* IH 1 ampul Q6HRT DARIUSZ Administration Alprazolam 0.5 mg 08/02/19 20:42 08/03/19 00:07 Xanax PO 0.5 mg Q8H PRN Administration Anxiety Budesonide 0.5 mg 08/03/19 08:00 08/03/19 08:17 Pulmicort IH 0.5 mg Q12HRT DARIUSZ Administration Docusate Sodium 100 mg 08/02/19 22:00 08/03/19 10:42 Colace PO 100 mg BID DARIUSZ Administration Heparin Sodium (Porcine) 5,000 unit 08/02/19 22:00 08/03/19 10:42 Heparin SUB-Q 5,000 unit Q12HR DARIUSZ Administration Hydrochlorothiazide 25 mg 08/03/19 10:00 08/03/19 10:42 Hctz PO 25 mg DAILY DARIUSZ Administration Methylprednisolone Sodium Succinate 80 mg 08/03/19 00:00 08/03/19 06:38 Solu-Medrol IV 80 mg Q6HR DARIUSZ Administration Metoprolol Succinate 25 mg 08/03/19 10:00 08/03/19 10:41 Metoprolol Xl PO 25 mg QDAY DARIUSZ Administration Nicotine 14 mg 08/03/19 10:00 08/03/19 10:42 Habitrol TD 14 mg QDAY DARIUSZ Administration Ondansetron HCl 4 mg 08/02/19 20:38 Zofran IV Q8H PRN Nausea And Vomiting Oxycodone/Acetaminophen 1 tab 08/02/19 20:38 08/03/19 10:41 Percocet 5/325 PO 1 tab Q6H PRN Administration Pain, Moderate (4-6) Sodium Chloride 10 ml 08/02/19 22:00 08/03/19 10:42 Sodium Chloride Flush Syringe 10 Ml IV 10 ml BID DARIUSZ Administration Sodium Chloride 10 ml 08/02/19 20:38 Sodium Chloride Flush Syringe 10 Ml IV PRN PRN LINE FLUSH
[2019-08-03] MEDS ORDERED: HYDROcodone/ACETAMINOPHEN 10-325MG TAB PO PRN (16:31)
[2019-08-03] MEDS ORDERED: diazePAM 2 MG TAB PO PRN (16:31)
[2019-08-03] MEDS: BENZONATATE 100 MG CAP PO SCH ×2 (18:16→23:11)
[2019-08-03] MEDS: hydroCHLOROthiazide 12.5 MG CAP PO SCH (18:17)
[2019-08-03] MEDS: ARFORMOTEROL 15 MCG/2 ML NEBU IH SCH (20:06)
[2019-08-04] MEDS: IPRATROPIUM/ALBUTEROL SULFATE 3 ML AMPUL.NEB IH SCH ×3 (01:07→14:21)
[2019-08-04] MEDS: methylPREDNISolone Sod Succinate 40 MG/1 ML INJ IV SCH ×3 (06:09→17:36)
[2019-08-04] MEDS: BENZONATATE 100 MG CAP PO SCH ×2 (06:10→13:45)
[2019-08-04] MEDS: ARFORMOTEROL 15 MCG/2 ML NEBU IH SCH (08:59)
[2019-08-04] MEDS: BUDESONIDE 0.5 MG/2 ML NEBU IH SCH (08:59)
[2019-08-04] MEDS: ALPRAZolam 0.5 MG TAB PO PRN (10:11)
[2019-08-04] MEDS: METOPROLOL SUCCINATE XL 25 MG TAB PO SCH (10:11)
[2019-08-04] MEDS: hydroCHLOROthiazide 12.5 MG CAP PO SCH (10:14)
[2019-08-04] MEDS: DOCUSATE SODIUM 100 MG CAP PO SCH (10:14)
[2019-08-04] MEDS: NICOTINE 14 MG/24 HR PATCH TD SCH (10:14)
[2019-08-04] MEDS: HEPARIN 5,000 UNIT/1 ML VIAL SUB-Q SCH (10:14)
[2019-08-04] MEDS: oxyCODONE /ACETAMINOPHEN 5-325MG TAB PO PRN (13:43)
--- NOTE | 2019-08-04 14:46 | Discharge Summary ---
Providers - Providers Date of Admission: 08/02/19 19:56 Date of discharge: 08/04/19 Attending physician: BRITTANY ÁLVAREZ 08/02/19 20:38 Consult to Physician [CONS] Routine Comment: Consulting Provider: ALBERTA COLUNGA Physician Instructions: Reason For Exam: COPD AE Primary care physician: EDWIN MCKEON MD Hospitalization Condition: Fair Disposition: DC-01 TO HOME OR SELFCARE Exam - Constitutional Vitals: Temp Pulse Resp BP Pulse Ox 97.8 F 78 20 153/93 100 08/04/19 05:31 08/04/19 14:36 08/04/19 14:36 08/04/19 05:31 08/04/19 08:59 Plan Diet: low fat, low cholesterol, low salt Plan of Treatment: 1.Follow up with PCP in 1 week. 2.Follow up Pulmonology in 1 week 3.Continue home Oxygen Follow up with: EDWIN MCKEON MD [Primary Care Provider] - 3-5 Days
[2019-08-04 18:45] VITALS: BP 156/94
== END 2019-08-04 18:35 | disposition home or self-care (01) ==
LOC: ED 13:10 → INTOOBSV 19:56 → 3A 19:56
PROVIDERS: ADMIT Internal Medicine; ATTEND Internal Medicine
DX: J44.1 Chronic obstructive pulmonary disease with (acute) exacerbation (principal); J96.11 Chronic respiratory failure with hypoxia; I11.0 Hypertensive heart disease with heart failure; I50.9 Heart failure, unspecified; G47.33 Obstructive sleep apnea (adult) (pediatric); M19.90 Unspecified osteoarthritis, unspecified site; E66.2 Morbid (severe) obesity with alveolar hypoventilation; F17.210 Nicotine dependence, cigarettes, uncomplicated; Z71.6 Tobacco abuse counseling; Z99.81 Dependence on supplemental oxygen; Z79.899 Other long term (current) drug therapy; Z79.51 Long term (current) use of inhaled steroids; Z68.43 Body mass index [BMI] 50.0-59.9, adult; Z91.048 Other nonmedicinal substance allergy status; Z91.013 Allergy to seafood
CPT/HCPCS: 36415; 71045; 80048; 80053; 83735; 83880; 84484; 85007; 85025; 85610; 85730; 87040; 87116; 93005; 93010; 94640; 94644; 94660; 94760; 96365; 96372; 96375; 96376; 99291; 99406; G0378; J1644; J2405; J2920; J2930; J3475

== ENCOUNTER 2019-08-20 02:55 | Emergency (ER) | payer MEDICAID ==
[2019-08-20] MEDS ORDERED: IPRATROPIUM/ALBUTEROL SULFATE 3 ML AMPUL.NEB IH ONE (03:03)
[2019-08-20 03:06] VITALS: BP 150/108
== END 2019-08-20 08:48 | disposition left against medical advice (07) ==
LOC: ED 02:55
DX: R06.02 Shortness of breath (principal); Z53.21 Procedure and treatment not carried out due to patient leaving prior to being seen by health care provider
CPT/HCPCS: 94644

== ENCOUNTER 2019-10-23 06:16 | Emergency (ER) | payer MEDICAID ==
[2019-10-23] MEDS ORDERED: ALBUTEROL 2.5 MG/3 ML NEBU IH ONE ×3 (06:30→06:32)
[2019-10-23] MEDS ORDERED: IPRATROPIUM 0.02% NEBU 2.5 ML IH ONE ×3 (06:30→06:32)
[2019-10-23] MEDS ORDERED: FUROSEMIDE 40 MG/4 ML INJ IV ONE (06:32)
--- NOTE | 2019-10-23 06:55 | Emergency Department Report ---
ED Shortness of Breath HPI - General Chief Complaint: Dyspnea/Respdistress Stated Complaint: SOB Time Seen by Provider: 10/23/19 06:31 Source: EMS Mode of arrival: Stretcher Limitations: No Limitations - History of Present Illness Initial Comments: Chief complaint: "'I think it is fluid." HPI: This is a 43-year-old female with history of hypertension, COPD, CHF, obesity sleep apnea, anxiety presents with severe shortness of breath. She arrived per EMS. Gradual onset of symptoms several days ago. She denies fever. She denies cough. She denies chest pain. Recent admission July for similar symptoms. History of chronic respiratory failure requiring 4 L nasal cannula at home. MD Complaint: shortness of breath -: days(s) (Several days) Severity: severe Consistency: constant Improves With: nothing Known History Of: COPD, congestive heart failure, other (Sleep apnea) Associated Symptoms: denies other symptoms - Related Data Previous Rx's Medication Instructions Recorded Last Taken Type Metoprolol Xl [Metoprolol 25 mg PO QDAY #30 tablet 02/17/19 05/08/19 10:00 Rx SUCCINATE ER TAB] ALBUTEROL NEB's [Proventil 0.083% 2.5 mg IH Q4HRT PRN #30 nebu 07/01/19 Unknown Rx NEBS] Arformoterol Nebu [Brovana Nebu] 15 mcg IH Q12HRT #30 ml 07/01/19 Unknown Rx Benzonatate [Tessalon Perles] 100 mg PO Q8HR #15 capsule 07/01/19 Unknown Rx Budesonide [Pulmicort Respules] 0.5 mg IH Q12HRT #30 nebu 07/01/19 Unknown Rx Fluticasone/Vilanterol [Breo 1 each IH BID #1 blst.w.dev 07/01/19 Unknown Rx Ellipta 200-25 Mcg INH] HYDROcodone/APAP 10-325 [[place] 1 each PO Q6HR PRN #20 tablet 07/01/19 Unknown Rx 10-325 mg TAB] Ipratropium/Albuterol Sulfate 1 ampul IH BID #30 ampul.neb 07/01/19 Unknown Rx [DUONEB *Not for PRN Use*] diazePAM TAB [Valium] 2 mg PO Q12H PRN #20 tablet 07/01/19 Unknown Rx hydroCHLOROthiazide [HCTZ] 12.5 mg PO QDAY capsule 07/01/19 Unknown Rx Nicotine [Habitrol] 14 mg TD DAILY #30 patch 08/04/19 Unknown Rx Prednisone [predniSONE 5 mg (6-Day 5 mg PO .TAPER #1 tab.ds.pk 08/04/19 Unknown Rx Pack, 21 Tabs)] Doxycycline Hyclate 100 mg PO BID 7 Days #14 tablet. 10/23/19 Unknown Rx LORazepam [Lorazepam] 1 mg PO TID PRN #10 tablet 10/23/19 Unknown Rx Allergies Allergy/AdvReac Type Severity Reaction Status Date / Time iodine Allergy Rash Verified 05/07/19 16:02 shellfish derived Allergy Rash Verified 05/07/19 16:02 ED Review of Systems ROS: Stated complaint: SOB Other details as noted in HPI Comment: All other systems reviewed and negative Constitutional: denies: fever, malaise Respiratory: shortness of breath, wheezing. denies: cough Cardiovascular: denies: chest pain Gastrointestinal: denies: nausea, vomiting ED Past Medical Hx - Past Medical History Previous Medical History?: Yes Hx Hypertension: Yes Hx Congestive Heart Failure: Yes Hx Diabetes: No Hx Sickle Cell Disease: No Hx Arthritis: Yes Hx Asthma: Yes Hx COPD: Yes Hx HIV: No Additional medical history: Sleep Apnea,.Morbid Obesity - Surgical History Additional Surgical History: x 3, orthopedic (arch replacement) [facility] 05/17/19 - Social History Smoking Status: Current Every Day Smoker Substance Use Type: Alcohol, Marijuana - Medications Home Medications: Home Medications Medication Instructions Recorded Confirmed Last Taken Type Metoprolol Xl [Metoprolol 25 mg PO QDAY #30 tablet 02/17/19 08/03/19 05/08/19 10:00 Rx SUCCINATE ER TAB] ALBUTEROL NEB's [Proventil 0.083% 2.5 mg IH Q4HRT PRN #30 nebu 07/01/19 08/03/19 Unknown Rx NEBS] Arformoterol Nebu [Brovana Nebu] 15 mcg IH Q12HRT #30 ml 07/01/19 08/03/19 Unknown Rx Benzonatate [Tessalon Perles] 100 mg PO Q8HR #15 capsule 07/01/19 08/03/19 Un known Rx Budesonide [Pulmicort Respules] 0.5 mg IH Q12HRT #30 nebu 07/01/19 08/03/19 Unknown Rx Fluticasone/Vilanterol [Breo 1 each IH BID #1 blst.w.dev 07/01/19 08/03/19 Unknown Rx Ellipta 200-25 Mcg INH] HYDROcodone/APAP 10-325 [[place] 1 each PO Q6HR PRN #20 tablet 07/01/19 08/03/19 Unknown Rx 10-325 mg TAB] Ipratropium/Albuterol Sulfate 1 ampul IH BID #30 ampul.neb 07/01/19 08/03/19 Unknown Rx [DUONEB *Not for PRN Use*] diazePAM TAB [Valium] 2 mg PO Q12H PRN #20 tablet 07/01/19 08/03/19 Unknown Rx hydroCHLOROthiazide [HCTZ] 12.5 mg PO QDAY capsule 07/01/19 08/03/19 Unknown Rx Nicotine [Habitrol] 14 mg TD DAILY #30 patch 08/04/19 Unknown Rx Prednisone [predniSONE 5 mg (6-Day 5 mg PO .TAPER #1 tab.ds.pk 08/04/19 Unknown Rx Pack, 21 Tabs)] Doxycycline Hyclate 100 mg PO BID 7 Days #14 tablet. 10/23/19 Unknown Rx LORazepam [Lorazepam] 1 mg PO TID PRN #10 tablet 10/23/19 Unknown Rx ED Physical Exam - General Limitations: No Limitations General appearance: alert, other (Mild work of breathing speaking 4-5 word sentences) - Head Head exam: Present: atraumatic, normocephalic - Eye Eye exam: Present: normal appearance - ENT ENT exam: Present: mucous membranes moist - Neck Neck exam: Present: normal inspection. Absent: tenderness, meningismus - Respiratory Respiratory exam: Present: respiratory distress, wheezes, decreased breath sounds, prolonged expiratory. Absent: rales, rhonchi - Cardiovascular Cardiovascular Exam: Present: normal rhythm, tachycardia, normal heart sounds. Absent: systolic murmur, diastolic murmur, rubs, gallop - GI/Abdominal GI/Abdominal exam: Present: soft. Absent: distended, tenderness, guarding, rebound - Extremities Exam Extremities exam: Present: normal inspection - Neurological Exam Neurological exam: Present: alert, oriented X3 - Psychiatric Psychiatric exam: Present: normal affect, anxious - Skin Skin exam: Present: warm, dry, intact, normal color. Absent: rash ED Course Vital Signs 10/23/19 10/23/19 10/23/19 06:22 06:25 06:30 Temperature Pulse Rate 102 H 90 Pulse Rate [ 100 H Posterior Bilateral Throughout] Respiratory 35 H 13 Rate Respiratory 32 H Rate [Posterior Bilateral Throughout] Blood Pressure Blood Pressure [Left] O2 Sat by Pulse 100 100 Oximetry 10/23/19 10/23/19 06:44 06:45 Temperature 97.8 F 98.9 F Pulse Rate 100 H 29 L Pulse Rate [ Posterior Bilateral Throughout] Respiratory 29 H 29 H Rate Respiratory Rate [Posterior Bilateral Throughout] Blood Pressure 151/98 Blood Pressure 151/98 [Left] O2 Sat by Pulse 100 100 Oximetry - Reevaluation(s) Reevaluation #1: 10/23/19 07:56 Patient appears comfortable. No obvious work of breathing. Speaking full word sentences. She requests medication for anxiety. ED Medical Decision Making - Lab Data Result diagrams: 10/23/19 06:55 10/23/19 07:03 Laboratory Results - last 24 hr 10/23/19 10/23/19 10/23/19 06:55 07:03 07:03 WBC 10.8 RBC 4.54 Hgb 10.8 Hct 33.8 MCV 74 L MCH 24 L MCHC 32 RDW 17.6 H Plt Count 300 Lymph % (Auto) 34.6 [place] % (Auto) 6.3 Eos % (Auto) 2.2 Baso % (Auto) 1.2 Lymph # 3.7 [place] # 0.7 Eos # 0.2 Baso # 0.1 Seg Neutrophils % 55.7 Seg Neutrophils # 6.0 Sodium 136 L Potassium 3.7 Chloride 99.0 Carbon Dioxide 20 L Anion Gap 21 BUN 13 Creatinine 0.7 Estimated GFR > 60 BUN/Creatinine Ratio 19 Glucose 111 H Calcium 8.9 Total Bilirubin 0.20 AST 13 ALT 7 Alkaline Phosphatase 69 Troponin T < 0.010 NT-Pro-B Natriuret Pep 606.5 H Total Protein 7.1 Albumin 3.6 L Albumin/Globulin Ratio 1.0 - EKG Data -: EKG Interpreted by Ri EKG shows normal: sinus rhythm, axis, QRS complexes, ST-T waves Rate: normal - EKG Data Interpretation: normal EKG 10/23/19 06:55 Normal sinus rhythm normal rate normal axis normal intervals no ST elevation no ST-T signs of ischemia normal EKG Rate 85 bpm obtained 0653 - Radiology Data Radiology results: report reviewed Small opacities right mid lower lung according to radiology report - Medical Decision Making Acute on chronic respiratory failure due to COPD: No significant pulmonary edema. I reviewed the chest radiograph. I do not see significant infiltrate. Patient rapidly improved with IV lorazepam, albuterol Atrovent and IV furos emide. She is currently semi-supine at 45% laying comfortably speaking full word sentences. Oxygen 98% on 4 L nasal cannula. She was informed of radiographs results. She has not had significant fever. Only mild cough. No sick contacts. She has been potentially exposed to sick persons. 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 She understands the risk of coronavirus. She is appropriate for discharge. She prefers to be home. I prescribed doxycycline for community-acquired pneumonia. She is well aware of the risk of COVID 19 infection. She understands to self isolate self quarantine for the next 2 weeks. Pertinent lab results: Normal white count, mildly elevated BNP normal troponin. Mrs. Rios requested prescription for lorazepam. I provided prescription for 10 tablets Critical Care Time: Yes Critical care time in (mins) excluding proc time.: 40 Critical care attestation.: If time is entered above; I have spent that time in minutes in the direct care of this critically ill patient, excluding procedure time. 40 minutes of critical care time excluding procedures were used in the care of the patient. I reviewed electronic record. I discussed treatment plan with the nursing team members at the bedside. I came immediately to the bedside upon request from nurse. Due to severe respiratory distress, respiratory therapist initiated treatment with bronchodilator therapy. I immediately ordered IV furosemide. I reviewed electronic record. Patient required multiple interventions and reassessments. ED Disposition Clinical Impression: COPD exacerbation, Chronic respiratory failure, Community acquired pneumonia Disposition: - TO HOME OR SELFCARE Is pt being admited?: No Does the pt Need Aspirin: No Condition: Stable Instructions: Chronic Obstructive Pulmonary Disease (ED), Bacterial Pneumonia (ED) Prescriptions: Doxycycline Hyclate 100 mg PO BID 7 Days #14 tablet.dr Lopez [Lorazepam] 1 mg PO TID PRN #10 tablet PRN Reason: Anxiety Referrals: PRIMARY CARE, [Primary Care Provider] - 3-5 Days
--- NOTE | 2019-10-23 07:13 | XRay Report ---
CHEST 1 VIEW INDICATION / CLINICAL INFORMATION: Dyspnea. COMPARISON: 08/02/2019 FINDINGS: SUPPORT DEVICES: None. HEART / MEDIASTINUM: No significant abnormality. LUNGS / PLEURA: Mild pulmonary vascular congestion. There are a few scattered pulmonary opacities in the right mid and lower lung worrisome for pneumonia. Left lung appears grossly clear. No pleural eff usion. No pneumothorax. ADDITIONAL FINDINGS: No significant additional findings. IMPRESSION: 1. Scattered pulmonary opacities in the right mid and lower lung field possibly representing pneumoni a. Clinical correlation is recommended. Signer Name: Lizzie Low MD Signed: 10/23/2019 7:09 AM Workstation Name: [id number]
[2019-10-23 07:18] LABS: Basophils # (Auto) 0.1 K/mm3 (0.0-0.1); Basophils % (Auto) 1.2 % (0.0-1.8); Eosinophils # (Auto) 0.2 K/mm3 (0.0-0.4); Eosinophils % (Auto) 2.2 % (0.0-4.3); Hematocrit 33.8 % (30.3-42.9); Hemoglobin 10.8 gm/dl (10.1-14.3); Lymphocytes # (Auto) 3.7 K/mm3 (1.2-5.4); Lymphocytes % (Auto) 34.6 % (13.4-35.0); Mean Corpuscular HGB Conc 32 % (30-34); Mean Corpuscular Volume 74 fl (79-97); Monocytes # (Auto) 0.7 K/mm3 (0.0-0.8); Monocytes % (Auto) 6.3 % (0.0-7.3); Red Blood Count 4.54 M/mm3 (3.65-5.03); Red Cell Distribution Width 17.6 % (13.2-15.2)
[2019-10-23 07:42] LABS: Alanine Aminotransferase 7 units/L (7-56); Albumin 3.6 g/dL (3.9-5); BUN/Creatinine Ratio 19; Blood Urea Nitrogen 13 mg/dL (7-17); Calcium 8.9 mg/dL (8.4-10.2); Hemolysis Index 32
[2019-10-23] MEDS ORDERED: LORazepam 1 MG TAB PO ONE (07:55)
[2019-10-23 08:03] LABS: Platelet Count 300 K/mm3 (140-440)
[2019-10-23] MEDS ORDERED: IPRATROPIUM/ALBUTEROL SULFATE 3 ML AMPUL.NEB IH ONE (09:20)
[2019-10-23 09:42] VITALS: BP 118/73
== END 2019-10-23 09:55 | disposition home or self-care (01) ==
LOC: ED 06:16
DX: J16.8 Pneumonia due to other specified infectious organisms (principal); J96.10 Chronic respiratory failure, unspecified whether with hypoxia or hypercapnia; J44.1 Chronic obstructive pulmonary disease with (acute) exacerbation; I11.0 Hypertensive heart disease with heart failure; I50.9 Heart failure, unspecified; M13.88 Other specified arthritis, other site; E66.01 Morbid (severe) obesity due to excess calories; F17.200 Nicotine dependence, unspecified, uncomplicated; F12.10 Cannabis abuse, uncomplicated; Z91.013 Allergy to seafood; Z98.890 Other specified postprocedural states; Z91.09 Other allergy status, other than to drugs and biological substances
CPT/HCPCS: 36415; 71045; 80053; 83880; 84145; 84484; 85025; 93005; 94640; 96374; 99291; J1940; 94644

== ENCOUNTER 2019-12-25 22:06 | Inpatient (IN) | payer MEDICAID ==
[2019-12-25] MEDS ORDERED: ALBUTEROL 2.5 MG/3 ML NEBU IH ONE (22:26)
[2019-12-25] MEDS ORDERED: IPRATROPIUM 0.02% NEBU 2.5 ML IH ONE (22:26)
--- NOTE | 2019-12-25 22:52 | Emergency Department Report ---
ED Shortness of Breath HPI - General Chief Complaint: Dyspnea/Respdistress Stated Complaint: DIANNA Time Seen by Provider: 12/25/19 22:25 Source: patient Mode of arrival: Wheelchair Limitations: No Limitations - History of Present Illness Initial Comments: 44-year-old female with history of COPD, CHF, currently on 4 L O2 at home, presents to ED with shortness of breath tonight. Patient states she has been out of her Lasix x 4 days. She reports pedal edema and orthopnea. She denies fever, cough, vomiting or diarrhea, smell or taste, or known exposure to anyone who has tested positive for COVID-19. Complaint: shortness of breath -: Last night Severity: moderate Improves With: nothing Worsens With: exertion Known History Of: COPD, congestive heart failure Treatments Prior to Arrival: oxygen - Related Data Home Oxygen Therapy: Yes Home Oxygen Amount: 4 Liters Previous Rx's Medication Instructions Recorded Last Taken Type Metoprolol Xl [Metoprolol 25 mg PO QDAY #30 tablet 02/17/19 05/08/19 10:00 Rx SUCCINATE ER TAB] ALBUTEROL NEB's [Proventil 0.083% 2.5 mg IH Q4HRT PRN #30 nebu 07/01/19 Unknown Rx NEBS] Arformoterol Nebu [Brovana Nebu] 15 mcg IH Q12HRT #30 ml 07/01/19 Unknown Rx Benzonatate [Tessalon Perles] 100 mg PO Q8HR #15 capsule 07/01/19 Unknown Rx Budesonide [Pulmicort Respules] 0.5 mg IH Q12HRT #30 nebu 07/01/19 Unknown Rx Fluticasone/Vilanterol [Breo 1 each IH BID #1 blst.w.dev 07/01/19 Unknown Rx Ellipta 200-25 Mcg INH] HYDROcodone/APAP 10-325 [[place] 1 each PO Q6HR PRN #20 tablet 07/01/19 Unknown Rx 10-325 mg TAB] Ipratropium/Albuterol Sulfate 1 ampul IH BID #30 ampul.neb 07/01/19 Unknown Rx [DUONEB *Not for PRN Use*] diazePAM TAB [Valium] 2 mg PO Q12H PRN #20 tablet 07/01/19 Unknown Rx hydroCHLOROthiazide [HCTZ] 12.5 mg PO QDAY capsule 07/01/19 Unknown Rx Nicotine [Habitrol] 14 mg TD DAILY #30 patch 08/04/19 Unknown Rx Prednisone [predniSONE 5 mg (6-Day 5 mg PO .TAPER #1 tab.ds.pk 08/04/19 Unknown Rx Pack, 21 Tabs)] Doxycycline Hyclate 100 mg PO BID 7 Days #14 tablet. 10/23/19 Unknown Rx LORazepam [Lorazepam] 1 mg PO TID PRN #10 tablet 10/23/19 Unknown Rx Allergies Allergy/AdvReac Type Severity Reaction Status Date / Time iodine Allergy Rash Verified 05/07/19 16:02 shellfish derived Allergy Rash Verified 05/07/19 16:02 ED Review of Systems ROS: Stated complaint: DIANNA Other details as noted in HPI Comment: All other systems reviewed and negative Constitutional: denies: chills, fever Respiratory: shortness of breath. denies: cough Cardiovascular: edema. denies: chest pain Gastrointestinal: denies: vomiting, diarrhea ED Past Medical Hx - Past Medical History Previous Medical History?: Yes Hx Hypertension: Yes Hx Congestive Heart Failure: Yes Hx Diabetes: No Hx Sickle Cell Disease: No Hx Arthritis: Yes Hx Asthma: Yes Hx COPD: Yes Hx HIV: No Additional medical history: Sleep Apnea,.Morbid Obesity - Surgical History Past Surgical History?: Yes Additional Surgical History: x 3, orthopedic (arch replacement) [facility] 05/17/19 - Social History Smoking Status: Current Every Day Smoker Substance Use Type: None - Medications Home Medications: Home Medications Medication Instructions Recorded Confirmed Last Taken Type Metoprolol Xl [Metoprolol 25 mg PO QDAY #30 tablet 02/17/19 08/03/19 05/08/19 10:00 Rx SUCCINATE ER TAB] ALBUTEROL NEB's [Proventil 0.083% 2.5 mg IH Q4HRT PRN #30 nebu 07/01/19 08/03/19 Unknown Rx NEBS] Arformoterol Nebu [Brovana Nebu] 15 mcg IH Q12HRT #30 ml 07/01/19 08/03/19 Unknown Rx Benzonatate [Tessalon Perles] 100 mg PO Q8HR #15 capsule 07/01/19 08/03/19 Unknown Rx Budesonide [Pulmicort Respules] 0.5 mg IH Q12HRT #30 nebu 07/01/19 08/03/19 Unknown Rx Fluticasone/Vilanterol [Breo 1 each IH BID #1 blst.w.dev 07/01/19 08/03/19 Unknown Rx Ellipta 200-25 Mcg INH] HYDROcodone/APAP 10-325 [[place] 1 each PO Q6HR PRN #20 tablet 07/01/19 08/03/19 Unknown Rx 10-325 mg TAB] Ipratropium/Albuterol Sulfate 1 ampul IH BID #30 ampul.neb 07/01/19 08/03/19 Unknown Rx [DUONEB *Not for PRN Use*] diazePAM TAB [Valium] 2 mg PO Q12H PRN #20 tablet 07/01/19 08/03/19 Unknown Rx hydroCHLOROthiazide [HCTZ] 12.5 mg PO QDAY capsule 07/01/19 08/03/19 Unknown Rx Nicotine [Habitrol] 14 mg TD DAILY #30 patch 08/04/19 Unknown Rx Prednisone [predniSONE 5 mg (6-Day 5 mg PO .TAPER #1 tab.ds.pk 08/04/19 Unknown Rx Pack, 21 Tabs)] Doxycycline Hyclate 100 mg PO BID 7 Days #14 tablet.dr 10/23/19 Unknown Rx LORazepam [Lorazepam] 1 mg PO TID PRN #10 tablet 10/23/19 Unknown Rx ED Physical Exam - General Limitations: No Limitations General appearance: alert, obese - Head Head exam: Present: atraumatic, normocephalic - Eye Eye exam: Present: normal appearance, EOMI - ENT ENT exam: Present: mucous membranes moist - Neck Neck exam: Present: normal inspection - Respiratory Respiratory exam: Present: wheezes, other (Tachypneic) - Cardiovascular Cardiovascular Exam: Present: regular rate, normal rhythm - GI/Abdominal GI/Abdominal exam: Present: soft. Absent: distended, tenderness - Extremities Exam Extremities exam: Present: pedal edema. Absent: calf tenderness - Neurological Exam Neurological exam: Present: alert, oriented X3 - Psychiatric Psychiatric exam: Present: normal affect, normal mood - Skin Skin exam: Present: warm, dry, intact, normal color ED Course Vital Signs 12/25/19 12/25/19 12/25/19 22:40 22:47 22:55 Temperature Pulse Rate 92 H 86 Pulse Rate [ Anterior Bilateral Throughout] Respiratory 36 H 20 20 Rate Respiratory Rate [Anterior Bilateral Throughout] Blood Pressure 145/83 Blood Pressure 145/83 [Left] O2 Sat by Pulse 98 100 97 Oximetry 12/25/19 12/25/19 23:29 23:43 Temperature 97.8 F Pulse Rate Pulse Rate [ 85 Anterior Bilateral Throughout] Respiratory Rate Respiratory 22 Rate [Anterior Bilateral Throughout] Blood Pressure Blood Pressure [Left] O2 Sat by Pulse Oximetry ED Medical Decision Making - Lab Data Result diagrams: 12/25/19 22:40 12/25/19 22:40 - EKG Data -: EKG Interpreted by De EKG shows normal: sinus rhythm, axis, intervals, QRS complexes, ST-T waves Rate: normal - EKG Data Interpretation: no acute changes - Radiology Data Radiology results: report reviewed, image reviewed - Medical Decision Making Pt reports "feels like fluid" on lungs b/c she reports not taking lasix the last 4 days. Pt does have some pedal edema present. BNP slightly elevated, CXR shows no evidence of pulm edema. On exam, pt had wheezing. More likely COPD exacerbation. Pt was immediately placed on BiPAP and has been given neb treatment, solumedrol, and lasix. She feels much better at this time. EKG and troponin normal. Will admit to hospitalist, Dr Koch, for further management. - Differential Diagnosis COPD, CHF, ACS Critical Care Time: Yes Critical care time in (mins) excluding proc time.: 35 Critical care attestation.: If time is entered above; I have spent that time in minutes in the direct care of this critically ill patient, excluding procedure time. Critical Care Time: 35 min ED Disposition Clinical Impression: CHF (congestive heart failure), COPD with acute exacerbation, Acute and chronic respiratory failure Disposition: [id number] OP ADMIT IP TO THIS HOSP Is pt being admited?: Yes Condition: Stable Time of Disposition: 23:51
[2019-12-25 22:57] LABS: Basophils % (Auto) 0.6 % (0.0-1.8); Eosinophils # (Auto) 0.3 K/mm3 (0.0-0.4); Eosinophils % (Auto) 3.7 % (0.0-4.3); Hematocrit 31.3 % (30.3-42.9); Lymphocytes # (Auto) 2.8 K/mm3 (1.2-5.4); Lymphocytes % (Auto) 35.9 % (13.4-35.0); Mean Corpuscular HGB Conc 32 % (30-34); Mean Corpuscular Volume 74 fl (79-97); Monocytes # (Auto) 0.6 K/mm3 (0.0-0.8); Monocytes % (Auto) 7.3 % (0.0-7.3); Platelet Count 342 K/mm3 (140-440); Red Blood Count 4.24 M/mm3 (3.65-5.03); Red Cell Distribution Width 17.4 % (13.2-15.2)
[2019-12-25 23:07] LABS: INR 0.9 (0.87-1.13)
[2019-12-25 23:08] LABS: Partial Thromboplastin Time 33.3 Sec. (24.2-36.6)
[2019-12-25 23:19] LABS: BUN/Creatinine Ratio 24; Blood Urea Nitrogen 17 mg/dL (7-17); Calcium 9.3 mg/dL (8.4-10.2); Hemolysis Index 0
--- NOTE | 2019-12-25 23:23 | XRay Report ---
CHEST 1 VIEW INDICATION: MAIN COMPARISON: 10/23/2019 FINDINGS: Support devices: None Heart: Normal and unchanged Lungs/Pleura: No acute pulmonary or pleural findings. IMPRESSION: 1. No acute disease and no interval change. Signer Name: Diloln Correa MD Signed: 12/25/2019 11:19 PM Workstation Name: [id number]
[2019-12-25] MEDS ORDERED: FUROSEMIDE 100 MG/10 ML INJ IV ONE (23:48)
[2019-12-25] MEDS ORDERED: methylPREDNISolone Sod Succinate 125 MG/2 ML INJ IV ONE (23:48)
[2019-12-25] MEDS ORDERED: MAGNESIUM HYDROXIDE (MOM) ORAL LIQD UDC PO PRN (23:57)
[2019-12-25] MEDS ORDERED: ONDANSETRON 4 MG/2 ML INJ IV PRN (23:57)
[2019-12-25] MEDS ORDERED: ACETAMINOPHEN 325 MG TAB PO PRN (23:57)
--- NOTE | 2019-12-26 00:07 | History and Physical Report ---
History of Present Illness Date of examination: 12/26/19 Date of admission: 12/26/2019 Chief complaint: Shortness of breath History of present illness: Patient is a 44-year-old female with known history of COPD and CHF and currently on 4 L of oxygen at home presenting to the emergency room complaining of shortness of breath. Patient indicates that she has been out of furosemide for about 4 days has been having progressive swelling of her lower extremities. She has also have some difficulty lying down flat . She denies any chest pain, no fever or chills, no nausea vomiting and no diarrhea. No sick contacts and no history of recent travel. She denies contact with anyone with COVID-19. Upon arrival in the emergency room patient was in respiratory distress and was subsequently placed on BiPAP. She also had some nebulizing treatments and some furosemide with some improvement. Past History Past Medical History: COPD, heart failure (Sleep apnea, morbid obesity), hypertension Past Surgical History: , Other (Left heart catheterization in May 2019, Arch placement) Social history: smoking (Current daily smoker) Family history: no significant family history Medications and Allergies Allergies Allergy/AdvReac Type Severity Reaction Status Date / Time iodine Allergy Rash Verified 05/07/19 16:02 shellfish derived Allergy Rash Verified 05/07/19 16:02 Home Medications Medication Instructions Recorded Confirmed Last Taken Type Metoprolol Xl [Metoprolol 25 mg PO QDAY #30 tablet 02/17/19 12/26/19 05/08/19 10:00 Rx SUCCINATE ER TAB] ALBUTEROL NEB's [Proventil 0.083% 2.5 mg IH Q4HRT PRN #30 nebu 07/01/19 12/26/19 Unknown Rx NEBS] Arformoterol Nebu [Brovana Nebu] 15 mcg IH Q12HRT #30 ml 07/01/19 12/26/19 Unknown Rx Benzonatate [Tessalon Perles] 100 mg PO Q8HR #15 capsule 07/01/19 12/26/19 Unknown Rx Budesonide [Pulmicort Respules] 0.5 mg IH Q12HRT #30 nebu 07/01/19 12/26/19 Unknown Rx Fluticasone/Vilanterol [Breo 1 each IH BID #1 blst.w.dev 07/01/19 12/26/19 Unknown Rx Ellipta 200-25 Mcg INH] Ipratropium/Albuterol Sulfate 1 ampul IH BID #30 ampul.neb 07/01/19 12/26/19 Unknown Rx [DUONEB *Not for PRN Use*] diazePAM TAB [Valium] 2 mg PO Q12H PRN #20 tablet 07/01/19 12/26/19 Unknown Rx Prednisone [predniSONE 5 mg (6-Day 5 mg PO .TAPER #1 tab.ds.pk 08/04/19 12/26/19 Unknown Rx Pack, 21 Tabs)] LORazepam [Lorazepam] 1 mg PO TID PRN #10 tablet 10/23/19 12/26/19 Unknown Rx hydroCHLOROthiazide [HCTZ] 25 mg PO QDAY 12/26/19 12/26/19 Unknown History Active Meds: Active Medications Acetaminophen (Tylenol) 650 mg PO Q4H PRN PRN Reason: Pain MILD(1-3)/Fever >100.5/CESAR Albuterol/Ipratropium (Duoneb *Not For Prn Use*) 1 ampul IH Q4HRT [facility] Furosemide (Lasix) 40 mg IV BID@0600,1800 [facility] Heparin Sodium (Porcine) (Heparin) 5,000 unit SUB-Q Q8HR [facility] Magnesium Hydroxide (Milk Of Magnesia) 30 ml PO Q4H PRN PRN Reason: Constipation Methylprednisolone Sodium Succinate (Solu-Medrol) 40 mg IV Q8HR [facility] Morphine Sulfate (Morphine) 2 mg IV Q4H PRN PRN Reason: Pain, Moderate (4-6) Ondansetron HCl (Zofran) 4 mg IV Q8H PRN PRN Reason: Nausea And Vomiting Sodium Chloride (Sodium Chloride Flush Syringe 10 Ml) 10 ml IV BID DARIUSZ Sodium Chloride (Sodium Chloride Flush Syringe 10 Ml) 10 ml IV PRN PRN PRN Reason: LINE FLUSH Review of Systems Constitutional: no fever, no chills Ears, nose, mouth and throat: no nasal congestion, no sore throat Cardiovascular: leg edema, no chest pain, no palpitations Respiratory: shortness of breath, dyspnea on exertion, no cough Gastrointestinal: no abdominal pain, no nausea, no vomiting, no diarrhea, no hematochezia Genitourinary Female: no flank pain, no dysuria, no hematuria Musculoskeletal: no neck pain, no low back pain Integumentary: no rash, no pruritis Neurological: no headaches, no confusion Psychiatric: anxiety, no depression Exam - Constitutional Vitals: Temp Pulse Resp BP Pulse Ox 97.8 F 85 22 145/83 97 12/25/19 23:29 12/25/19 23:43 12/25/19 23:43 12/25/19 22:47 12/25/19 22:55 General appearance: Present: no acute distress, well-nourished - EENT Eyes: Present: PERRL, EOM intact. Absent: scleral icterus ENT: hearing intact, clear oral mucosa, dentition normal - Neck Neck: Present: supple, normal ROM - Respiratory Respiratory effort: normal Respiratory: bilateral: diminished - Cardiovascular Rhythm: regular Heart Sounds: Present: S1 & S2. Absent: gallop, systolic murmur, diastolic murmur, rub - Extremities Extremities: no ischemia, pulses intact, pulses symmetrical, Full ROM Extremity abnormal: edema (1+ bilateral pedal edema.) Peripheral Pulses: within normal limits - Abdominal General gastrointestinal: Present: soft, non-tender, non-distended, normal bowel sounds - Integumentary Integumentary: Present: clear, warm, dry. Absent: jaundice, rash - Musculoskeletal Musculoskeletal: strength equal bilaterally - Psychiatric Psychiatric: appropriate mood/affect, intact judgment & insight, cooperative - Neurologic Neurologic: CNII-XII intact, no focal deficits, moves all extremities HEART Score - HEART Score Troponin: Troponin T < 0.010 ng/mL (0.00-0.029) 12/25/19 22:40 Results - Labs CBC & Chem 7: 12/25/19 22:40 12/25/19 22:40 Labs: Abnormal lab results 12/25/19 12/25/19 12/25/19 Range/Units 22:40 22:40 22:40 Hgb 10.0 L (10.1-14.3) gm/dl MCV 74 L (79-97) fl MCH 24 L (28-32) pg RDW 17.4 H (13.2-15.2) % Lymph % (Auto) 35.9 H (13.4-35.0) % PT 12.0 L (12.2-14.9) Sec. NT-Pro-B Natriuret Pep 1003 H (0-450) pg/mL Assessment and Plan - Patient Problems (1) Acute and chronic respiratory failure Current Visit: Yes Status: Acute Plan to address problem: Patient currently placed on BiPAP. Will request pulmonology evaluation. (2) CHF (congestive heart failure) Current Visit: Yes Status: Acute Qualifiers: Plan to address problem: Patient placed on diuretics. Will monitor inputs and outputs and also monitor daily weight. Patient will be scheduled for echocardiogram. (3) COPD with acute exacerbation Current Visit: Yes Status: Acute Plan to address problem: Patient placed on nebulizing treatments and IV steroids. (4) Morbid obesity Current Visit: No Status: Acute Plan to address problem: Patient has a BMI greater than 40. Encouraged on lifestyle modification. We will also schedule for dietary consult. (5) Tobacco use Current Visit: No Status: Chronic Plan to address problem: Counseled on quitting tobacco use. We offer nicotine patch as needed. (6) DVT prophylaxis Current Visit: No Status: Acute Plan to address problem: Patient placed on subcutaneous heparin. (7) Full code status Current Visit: Yes Status: Acute
[2019-12-26] MEDS ORDERED: LORazepam 2 MG/ML VIAL IV ONE (00:15)
[2019-12-26] MEDS ORDERED: ALPRAZolam 0.25 MG TAB PO ONE ×2 (00:27→02:35)
[2019-12-26] MEDS ORDERED: FUROSEMIDE 100 MG/10 ML INJ IV ONE (01:03)
[2019-12-26] MEDS ORDERED: methylPREDNISolone Sod Succinate 125 MG/2 ML INJ ONE (01:03)
[2019-12-26] MEDS ORDERED: LORazepam 2 MG/ML VIAL ONE (01:06)
[2019-12-26] MEDS: IPRATROPIUM/ALBUTEROL SULFATE 3 ML AMPUL.NEB IH SCH ×6 (02:57→20:39)
[2019-12-26] MEDS ORDERED: FUROSEMIDE 40 MG/4 ML INJ IV SCH (06:00)
[2019-12-26] MEDS: HEPARIN 5,000 UNIT/1 ML VIAL SUB-Q SCH ×3 (06:24→22:28)
[2019-12-26] MEDS: methylPREDNISolone Sod Succinate 40 MG/1 ML INJ IV SCH ×3 (06:26→23:19)
[2019-12-26] MEDS: MORPHINE 2 MG/1 ML INJ IV PRN ×3 (06:30→22:29)
[2019-12-26] MEDS ORDERED: diazePAM 2 MG TAB PO PRN (06:34)
[2019-12-26] MEDS: LORazepam 1 MG TAB PO PRN ×2 (09:46→17:42)
[2019-12-26] MEDS: METOPROLOL SUCCINATE XL 25 MG TAB PO SCH (09:46)
[2019-12-26] MEDS ORDERED: hydroCHLOROthiazide 25 MG TAB PO SCH (10:00)
--- NOTE | 2019-12-26 10:46 | Progress Note ---
Assessment and Plan Assessment and plan: Patient is a 44-year-old female with known history of COPD and CHF and currently on 4 L of oxygen at home presenting to the emergency room complaining of shortness of breath. Patient indicates that she has been out of furosemide for about 4 days has been having progressive swelling of her lower extremities. She has also have some difficulty lying down flat . She denies any chest pain, no fever or chills, no nausea vomiting and no diarrhea. No sick contacts and no history of recent travel. She denies contact with anyone with COVID-19. Upon arrival in the emergency room patient was in respiratory distress and was subsequently placed on BiPAP. She also had some nebulizing treatments and some furosemide with some improvement. 12/25: Patient improving but reports exertional dyspnea still. Continue current management await cardiology evaluation. Anticipate if patient continues to improve discharge in a.m. Will check BMP at this time to ensure electrolytes are stable. Extensive counseling to quit tobacco use. (1) Acute heart failure with preserved ejection fraction (HFpEF) Current Visit: Yes Status: Acute (2) Normal coronary arteries Current Visit: Yes Status: Chronic (3) COPD with acute exacerbation Current Visit: Yes Status: Acute (4) Acute and chronic respiratory failure Current Visit: Yes Status: Acute (5) HTN (hypertension) Current Visit: Yes Status: Chronic Qualifiers: Hypertension type: essential hypertension Qualified Code(s): I10 - Essential (primary) hypertension (6) Morbid obesity Current Visit: Yes Status: Acute (7) Obesity hypoventilation syndrome Current Visit: Yes Status: Suspected (8) Sleep apnea Current Visit: Yes Status: Chronic (9) History of CVA (cerebrovascular accident) Current Visit: Yes Status: Chronic (10) Tobacco use Current Visit: No Status: Chronic Plan to address problem: Counseled on quitting tobacco use. We offer nicotine patch as needed. (11) DVT prophylaxis Current Visit: No Status: Acute Plan to address problem: Patient placed on subcutaneous heparin. (12) Full code status Current Visit: Yes Status: Acute History Interval history: Patient seen and examined resting comfortably morbidly obese reports improvement but still with cramping in both legs. Hospitalist Physical - Physical exam Narrative exam: VITAL SIGNS: Reviewed. GENERAL: The patient appears normally developed, morbidly obese vital signs as documented. HEAD: No signs of head trauma. EYES: Pupils are equal. Extraocular motions intact. EARS: Hearing grossly intact. MOUTH: Oropharynx is normal. NECK: No adenopathy, no JVD. CHEST: Chest with diminished breath sounds bilaterally. No wheezes, rales, or rhonchi. CARDIAC: Regular rate and rhythm. S1 and S2, without murmurs, gallops, or rubs. VASCULAR: No Edema. Peripheral pulses normal and equal in all extremities. ABDOMEN: Soft, non tender and non distended. No rebound or guarding, and no masses palpated. Bowel Sounds normal. MUSCULOSKELETAL: Good range of motion of all major joints. Extremities without clubbing, cyanosis. +1 pitting edema bilateral. NEUROLOGIC EXAM: Alert and oriented x 3 No focal sensory or strength deficits. Speech normal. Follows commands. PSYCHIATRIC: Mood normal. SKIN: detial exam as documented in skin assessment - Constitutional Vitals: Temp Pulse Resp BP Pulse Ox 98.2 F 83 20 151/88 100 12/26/19 07:55 12/26/19 07:55 12/26/19 07:55 12/26/19 07:55 12/26/19 07:55 General appearance: Present: no acute distress, well-nourished HEART Score - HEART Score Troponin: Troponin T < 0.010 ng/mL (0.00-0.029) 12/25/19 22:40 Results - Labs CBC & Chem 7: 12/25/19 22:40 12/26/19 12:00 Labs: Laboratory Last Values WBC 7.7 K/mm3 (4.5-11.0) 12/25/19 22:40 RBC 4.24 M/mm3 (3.65-5.03) 12/25/19 22:40 Hgb 10.0 gm/dl (10.1-14.3) L 12/25/19 22:40 Hct 31.3 % (30.3-42.9) 12/25/19 22:40 MCV 74 fl (79-97) L 12/25/19 22:40 MCH 24 pg (28-32) L 12/25/19 22:40 MCHC 32 % (30-34) 12/25/19 22:40 RDW 17.4 % (13.2-15.2) H 12/25/19 22:40 Plt Count 342 K/mm3 (140-440) 12/25/19 22:40 Lymph % (Auto) 35.9 % (13.4-35.0) H 12/25/19 22:40 [place] % (Auto) 7.3 % (0.0-7.3) 12/25/19 22:40 Eos % (Auto) 3.7 % (0.0-4.3) 12/25/19 22:40 Baso % (Auto) 0.6 % (0.0-1.8) 12/25/19 22:40 Lymph # 2.8 K/mm3 (1.2-5.4) 12/25/19 22:40 [place] # 0.6 K/mm3 (0.0-0.8) 12/25/19 22:40 Eos # 0.3 K/mm3 (0.0-0.4) 12/25/19 22:40 Baso # 0.0 K/mm3 (0.0-0.1) 12/25/19 22:40 Seg Neutrophils % 52.5 % (40.0-70.0) 12/25/19 22:40 Seg Neutrophils # 4.1 K/mm3 (1.8-7.7) 12/25/19 22:40 PT 12.0 Sec. (12.2-14.9) L 12/25/19 22:40 INR 0.90 (0.87-1.13) 12/25/19 22:40 APTT 33.3 Sec. (24.2-36.6) 12/25/19 22:40 Sodium 141 mmol/L (137-145) 12/25/19 22:40 Potassium 3.7 mmol/L (3.6-5.0) 12/25/19 22:40 Chloride 102.9 mmol/L (98-107) 12/25/19 22:40 Carbon Dioxide 25 mmol/L (22-30) 12/25/19 22:40 Anion Gap 17 mmol/L 12/25/19 22:40 BUN 17 mg/dL (7-17) 12/25/19 22:40 Creatinine 0.7 mg/dL (0.7-1.2) 12/25/19 22:40 Estimated GFR > 60 ml/min 12/25/19 22:40 BUN/Creatinine Ratio 24 % 12/25/19 22:40 Glucose 96 mg/dL (65-100) 12/25/19 22:40 Calcium 9.3 mg/dL (8.4-10.2) 12/25/19 22:40 Troponin T < 0.010 ng/mL (0.00-0.029) 12/25/19 22:40 NT-Pro-B Natriuret Pep 1003 pg/mL (0-450) H 12/25/19 22:40 Lau/IV: Voiding Method Toilet IV Catheter Type [Right Peripheral IV Antecubital] Active Medications - Current Medications Current Medications: Generic Name Dose Route Start Last Admin Trade Name Freq PRN Reason Stop Dose Admin Acetaminophen 650 mg 12/25/19 23:57 Tylenol PO Q4H PRN Pain MILD(1-3)/Fever >100.5/CESAR Albuterol/Ipratropium 1 ampul 12/26/19 00:00 12/26/19 07:57 Duoneb *Not For Prn Use* IH 1 ampul Q4HRT DARIUSZ Administration Budesonide 0.5 mg 12/26/19 08:45 Pulmicort IH Q12HRT DARIUSZ Diazepam 2 mg 12/26/19 06:34 Valium PO Q12H PRN Anxiety Furosemide 40 mg 12/26/19 06:00 12/26/19 06:23 Lasix IV 40 mg BID@0600,1800 DARIUSZ Administration Heparin Sodium (Porcine) 5,000 unit 12/26/19 06:00 12/26/19 06:24 Heparin SUB-Q 5,000 unit Q8HR DARIUSZ Administration Hydrochlorothiazide 25 mg 12/26/19 10:00 12/26/19 09:46 Hctz PO 25 mg QDAY DARIUSZ Administration Lorazepam 1 mg 12/26/19 06:34 12/26/19 09:46 Ativan PO 1 mg TID PRN Administration Anxiety Magnesium Hydroxide 30 ml 12/25/19 23:57 Milk Of Magnesia PO Q4H PRN Constipation Methylprednisolone Sodium Succinate 40 mg 12/26/19 06:00 12/26/19 06:26 Solu-Medrol IV 40 mg Q8HR DARIUSZ Administration Metoprolol Succinate 25 mg 12/26/19 10:00 12/26/19 09:46 Metoprolol Xl PO 25 mg QDAY DARIUSZ Administration Morphine Sulfate 2 mg 12/25/19 23:57 12/26/19 06:30 Morphine IV 2 mg Q4H PRN Administration Pain, Moderate (4-6) Ondansetron HCl 4 mg 12/25/19 23:57 Zofran IV Q8H PRN Nausea And Vomiting Sodium Chloride 10 ml 12/26/19 10:00 12/26/19 09:47 Sodium Chloride Flush Syringe 10 Ml IV 10 ml BID DARIUSZ Administration Sodium Chloride 10 ml 12/25/19 23:57 12/26/19 06:34 Sodium Chloride Flush Syringe 10 Ml IV 10 ml PRN PRN Administration LINE FLUSH
--- NOTE | 2019-12-26 10:55 | Consultation ---
History of Present Illness Consult date: 12/26/19 Reason for consult: dyspnea, COPD, obstructive sleep apnea History of present illness: Patient is a 44-year-old female Morbidly Obese with known history of COPD,Sleep apnea and CHF and currently on 4 L of oxygen at home presenting to the emergency room complaining of shortness of breath. Patient indicates that she has been out of furosemide for about 4 days has been having progressive swelling of her lower extremities. Patient also told me she is running out of her inhalers. She has also have some difficulty lying down flat . She denies any chest pain, no fever or chills, no nausea vomiting . No sick contacts and no history of recent travel. She denies contact with anyone with COVID-19. She denies any symptoms of COVID 19 infection. No fever, no chills, no body aches. Upon arrival in the emergency room patient was in respiratory distress and was subsequently placed on BiPAP. She also had some nebulizing treatments and some furosemide with some improvement. Patient has history of smoking 2 packs a day for 25 years and patient says cut down to 2 cigaretts a day. Counselled to stop smoking. Patient lost 45 lbs over last few months. Patient is on CPAP at home. Patient says sleeping alright. Allergic to Iodine,Shellfish Patient presently resting on 4 litres O2. o2 saturation running 100%. BIPAP standby in the room. Patients chest xray reported no acute pulmonary and pleural findings. Past History Past Medical History: COPD, heart failure (Sleep apnea, morbid obesity), hypertension Past Surgical History: , Other (Left heart catheterization in May 2019, Arch placement) Social history: smoking (Current daily smoker) Family history: no significant family history Medications and Allergies Allergies Allergy/AdvReac Type Severity Reaction Status Date / Time iodine Allergy Rash Verified 05/07/19 16:02 shellfish derived Allergy Rash Verified 05/07/19 16:02 Home Medications Medication Instructions Recorded Confirmed Last Taken Type Metoprolol Xl [Metoprolol 25 mg PO QDAY #30 tablet 02/17/19 12/26/19 05/08/19 10:00 Rx SUCCINATE ER TAB] ALBUTEROL NEB's [Proventil 0.083% 2.5 mg IH Q4HRT PRN #30 nebu 07/01/19 12/26/19 Unknown Rx NEBS] Arformoterol Nebu [Brovana Nebu] 15 mcg IH Q12HRT #30 ml 07/01/19 12/26/19 Unknown Rx Benzonatate [Tessalon Perles] 100 mg PO Q8HR #15 capsule 07/01/19 12/26/19 Unknown Rx Budesonide [Pulmicort Respules] 0.5 mg IH Q12HRT #30 nebu 07/01/19 12/26/19 Unknown Rx Fluticasone/Vilanterol [Breo 1 each IH BID #1 blst.w.dev 07/01/19 12/26/19 Unknown Rx Ellipta 200-25 Mcg INH] Ipratropium/Albuterol Sulfate 1 ampul IH BID #30 ampul.neb 07/01/19 12/26/19 Unknown Rx [DUONEB *Not for PRN Use*] diazePAM TAB [Valium] 2 mg PO Q12H PRN #20 tablet 07/01/19 12/26/19 Unknown Rx Prednisone [predniSONE 5 mg (6-Day 5 mg PO .TAPER #1 tab.ds.pk 08/04/19 12/26/19 Unknown Rx Pack, 21 Tabs)] LORazepam [Lorazepam] 1 mg PO TID PRN #10 tablet 10/23/19 12/26/19 Unknown Rx hydroCHLOROthiazide [HCTZ] 25 mg PO QDAY 12/26/19 12/26/19 Unknown History Active Meds: Active Medications Acetaminophen (Tylenol) 650 mg PO Q4H PRN PRN Reason: Pain MILD(1-3)/Fever >100.5/CESAR Albuterol/Ipratropium (Duoneb *Not For Prn Use*) 1 ampul IH Q4HRT [facility] Last Admin: 12/26/19 07:57 Dose: 1 ampul Documented by: Budesonide (Pulmicort) 0.5 mg IH Q12HRT [facility] Diazepam (Valium) 2 mg PO Q12H PRN PRN Reason: Anxiety Furosemide (Lasix) 40 mg IV BID@0600,1800 [facility] Last Admin: 12/26/19 06:23 Dose: 40 mg Documented by: Heparin Sodium (Porcine) (Heparin) 5,000 unit SUB-Q Q8HR [facility] Last Admin: 12/26/19 06:24 Dose: 5,000 unit Documented by: Hydrochlorothiazide (Hctz) 25 mg PO QDAY [facility] Last Admin: 12/26/19 09:46 Dose: 25 mg Documented by: Lorazepam (Ativan) 1 mg PO TID PRN PRN Reason: Anxiety Last Admin: 12/26/19 09:46 Dose: 1 mg Documented by: Magnesium Hydroxide (Milk Of Magnesia) 30 ml PO Q4H PRN PRN Reason: Constipation Methylprednisolone Sodium Succinate (Solu-Medrol) 40 mg IV Q8HR [facility] Last Admin: 12/26/19 06:26 Dose: 40 mg Documented by: Metoprolol Succinate (Metoprolol Xl) 25 mg PO QDAY [facility] Last Admin: 12/26/19 09:46 Dose: 25 mg Documented by: Morphine Sulfate (Morphine) 2 mg IV Q4H PRN PRN Reason: Pain, Moderate (4-6) Last Admin: 12/26/19 10:50 Dose: 2 mg Documented by: Ondansetron HCl (Zofran) 4 mg IV Q8H PRN PRN Reason: Nausea And Vomiting Sodium Chloride (Sodium Chloride Flush Syringe 10 Ml) 10 ml IV BID [facility] Last Admin: 12/26/19 09:47 Dose: 10 ml Documented by: Sodium Chloride (Sodium Chloride Flush Syringe 10 Ml) 10 ml IV PRN PRN PRN Reason: LINE FLUSH Last Admin: 12/26/19 06:34 Dose: 10 ml Documented by: Review of Systems All systems: negative Physical Examination Vital signs: Vital Signs Pulse Resp BP Pulse Ox 92 H 36 H 145/83 98 12/25/19 22:40 12/25/19 22:40 12/25/19 22:40 12/25/19 22:40 General appearance: no acute distress, alert Eyes: non-icteric ENT: oropharynx moist Neck: supple, no JVD Ascultation: Bilateral: diminished breath sounds Cardiovascular: regular rate and rhythm Gastrointestinal: normoactive bowel sounds, soft, non-tender Integumentary: normal Extremities: no cyanosis, no edema Musculoskeletal: no deformities Gait: poor gait normal mental status, non-focal exam, pupils equal and round, CN II-XII normal mood appropriate Results - Laboratory Findings CBC and BMP: 12/25/19 22:40 12/26/19 12:00 PT/INR, D-dimer PT 12.0 Sec. (12.2-14.9) L 12/25/19 22:40 INR 0.90 (0.87-1.13) 12/25/19 22:40 Abnormal lab findings: Abnormal Labs 12/25/19 12/25/19 12/25/19 22:40 22:40 22:40 Hgb 10.0 L MCV 74 L MCH 24 L RDW 17.4 H Lymph % (Auto) 35.9 H PT 12.0 L NT-Pro-B Natriuret Pep 1003 H - Diagnostic Findings Chest x-ray: report reviewed, image reviewed Additional studies: CHEST 1 VIEW 12/25/19 INDICATION: MAIN COMPARISON: 10/23/2019 FINDINGS: Support devices: None Heart: Normal and unchanged Lungs/Pleura: No acute pulmonary or pleural findings. IMPRESSION: 1. No acute disease and no interval change. Assessment and Plan Patient is a 44-year-old female Morbidly Obese with known history of COPD,Sleep apnea and CHF and currently on 4 L of oxygen at home presenting to the emergency room complaining of shortness of breath. Patient indicates that she has been out of furosemide for about 4 days has been having progressive swelling of her lower extremities. Patient also told me she is running out of her inhalers. She has also have some difficulty lying down flat . She denies any chest pain, no fever or chills, no nausea vomiting . No sick contacts and no history of recent travel. She denies contact with anyone with COVID-19. She denies any symptoms of COVID 19 infection. No fever, no chills, no body aches. Upon arrival in the emergency room patient was in respiratory distress and was subsequently placed on BiPAP. She also had some nebulizing treatments and some furosemide with some improvement. Patient has history of smoking 2 packs a day for 25 years and patient says cut down to 2 cigaretts a day. Counselled to stop smoking. Patient lost 45 lbs over last few months. Patient is on CPAP at home. Patient says sleeping alright. Allergic to Iodine,Shellfish Patient presently resting on 4 litres O2. o2 saturation running 100%. BIPAP standby in the room. Patients chest xray reported no acute pulmonary and pleural findings. - Patient Problems (1) Acute and chronic respiratory failure Current Visit: Yes Status: Acute Plan to address problem: O2 4 litres via nasal canula. BIPAP during night time, Prn for shortness of breath during day time. Albuterol/atrovent aerosol treatments q 6 hours. Continue I/V solumedrol. Continue S/C heparin. Recommend GI prophylaxis Fomatidine or protonix. (2) COPD with acute exacerbation Current Visit: Yes Status: Acute Plan to address problem: O2 4 litres via nasal canula. BIPAP during night time, Prn for shortness of breath during day time. Albuterol/atrovent aerosol treatments q 6 hours. Continue I/V solumedrol. Continue S/C heparin. Recommend GI prophylaxis Fomatidine or protonix. ABGs on room air. (3) CHF (congestive heart failure) Current Visit: Yes Status: Acute Qualifiers: Plan to address problem: Management as per cardiology. (4) HTN (hypertension) Current Visit: Yes Status: Chronic Qualifiers: Hypertension type: essential hypertension Qualified Code(s): I10 - Essential (primary) hypertension Plan to address problem: Management as per primary care. (5) Morbid obesity Current Visit: Yes Status: Acute Plan to address problem: Recommend more weight loss. (6) Obesity hypoventilation syndrome Current Visit: Yes Status: Suspected Plan to address problem: BIPAP standby in the room. ABGs on room air. (7) Tobacco use Current Visit: No Status: Chronic Plan to address problem: Counselled to stop smoking.
--- NOTE | 2019-12-26 12:03 | Consultation ---
History of Present Illness Consult date: 12/26/19 Requesting physician: AUNG AL Consult reason: congestive heart failure History of present illness: The patient is a 44 YO female with a past medical history significant for HFpEF, COPD, chronic respiratory failure requiring home O2 (follows Dr. Nava), ? obesity hypoventilation syndrome, HTN, JUDSON, compliant with CPAP, CVA in 07/2017, morbid obesity (has lost over 100lbs over the past 1.5 year), tobacco use (quit smoking in 10/2017), recurrent chest pain. She is followed in our office by Dr. FERNANDO Mayer. She presented with c/o SOB and BLE swelling for several days prior to arrival. She denies any chest pain, palpitations, n/v, diaphoresis, dizziness or syncope. She received IV lasix overnight and reports resolution of her symptoms today. LHC done 05/2019 showed normal coronaries, normal LV function. Echo done 05/06/2019 showed EF 50-55%, mild to mod LVH, LA severely dilated, grade 2 diastolic dysfunction, mild AR, mod MR, small pericardial effusion not hemodynamically significant. Past History Past Medical History: COPD, heart failure (Sleep apnea, morbid obesity), hypertension, other (as per HPI) Past Surgical History: , Other (Left heart catheterization in May 2019, Arch placement) Social history: smoking (Current daily smoker) Family history: no significant family history Medications and Allergies Allergies Allergy/AdvReac Type Severity Reaction Status Date / Time iodine Allergy Rash Verified 05/07/19 16:02 shellfish derived Allergy Rash Verified 05/07/19 16:02 Home Medications Medication Instructions Recorded Confirmed Last Taken Type Metoprolol Xl [Metoprolol 25 mg PO QDAY #30 tablet 02/17/19 12/26/19 05/08/19 10:00 Rx SUCCINATE ER TAB] ALBUTEROL NEB's [Proventil 0.083% 2.5 mg IH Q4HRT PRN #30 nebu 07/01/19 12/26/19 Unknown Rx NEBS] Arformoterol Nebu [Brovana Nebu] 15 mcg IH Q12HRT #30 ml 07/01/19 12/26/19 Unknown Rx Benzonatate [Tessalon Perles] 100 mg PO Q8HR #15 capsule 07/01/19 12/26/19 Unknown Rx Budesonide [Pulmicort Respules] 0.5 mg IH Q12HRT #30 nebu 07/01/19 12/26/19 Unknown Rx Fluticasone/Vilanterol [Breo 1 each IH BID #1 blst.w.dev 07/01/19 12/26/19 Unknown Rx Ellipta 200-25 Mcg INH] Ipratropium/Albuterol Sulfate 1 ampul IH BID #30 ampul.neb 07/01/19 12/26/19 Unknown Rx [DUONEB *Not for PRN Use*] diazePAM TAB [Valium] 2 mg PO Q12H PRN #20 tablet 07/01/19 12/26/19 Unknown Rx Prednisone [predniSONE 5 mg (6-Day 5 mg PO .TAPER #1 tab.ds.pk 08/04/19 12/26/19 Unknown Rx Pack, 21 Tabs)] LORazepam [Lorazepam] 1 mg PO TID PRN #10 tablet 10/23/19 12/26/19 Unknown Rx hydroCHLOROthiazide [HCTZ] 25 mg PO QDAY 12/26/19 12/26/19 Unknown History Active Meds: Active Medications Acetaminophen (Tylenol) 650 mg PO Q4H PRN PRN Reason: Pain MILD(1-3)/Fever >100.5/CESAR Albuterol/Ipratropium (Duoneb *Not For Prn Use*) 1 ampul IH Q4HRT [facility] Last Admin: 12/26/19 07:57 Dose: 1 ampul Documented by: Budesonide (Pulmicort) 0.5 mg IH Q12HRT [facility] Diazepam (Valium) 2 mg PO Q12H PRN PRN Reason: Anxiety Furosemide (Lasix) 40 mg PO QDAY [facility] Heparin Sodium (Porcine) (Heparin) 5,000 unit SUB-Q Q8HR [facility] Last Admin: 12/26/19 06:24 Dose: 5,000 unit Documented by: Lorazepam (Ativan) 1 mg PO TID PRN PRN Reason: Anxiety Last Admin: 12/26/19 09:46 Dose: 1 mg Documented by: Magnesium Hydroxide (Milk Of Magnesia) 30 ml PO Q4H PRN PRN Reason: Constipation Methylprednisolone Sodium Succinate (Solu-Medrol) 40 mg IV Q8HR [facility] Last Admin: 12/26/19 06:26 Dose: 40 mg Documented by: Metoprolol Succinate (Metoprolol Xl) 25 mg PO QDAY [facility] Last Admin: 12/26/19 09:46 Dose: 25 mg Documented by: Morphine Sulfate (Morphine) 2 mg IV Q4H PRN PRN Reason: Pain, Moderate (4-6) Last Admin: 12/26/19 10:50 Dose: 2 mg Documented by: Ondansetron HCl (Zofran) 4 mg IV Q8H PRN PRN Reason: Nausea And Vomiting Sodium Chloride (Sodium Chloride Flush Syringe 10 Ml) 10 ml IV BID [facility] Last Admin: 12/26/19 09:47 Dose: 10 ml Documented by: Sodium Chloride (Sodium Chloride Flush Syringe 10 Ml) 10 ml IV PRN PRN PRN Reason: LINE FLUSH Last Admin: 12/26/19 06:34 Dose: 10 ml Documented by: Review of Systems Constitutional: no weight loss, no weight gain, no fever, no chills, no sweats Ears, nose, mouth and throat: no ear pain, no nose pain, no sinus pressure, no sinus pain Cardiovascular: orthopnea, edema, shortness of breath, dyspnea on exertion, leg edema, no chest pain, no palpitations, no rapid/irregular heart beat, no syncope, no lightheadedness Respiratory: shortness of breath, dyspnea on exertion, no cough, no congestion, no wheezing, no pain on inspiration Gastrointestinal: no abdominal pain, no nausea, no vomiting, no diarrhea, no constipation, no change in bowel habits Genitourinary Female: no pelvic pain, no flank pain, no dysuria, no urinary frequency, no urgency Musculoskeletal: no neck stiffness, no neck pain, no shooting arm pain, no arm numbness/tingling, no low back pain, no shooting leg pain Integumentary: no rash, no pruritis, no redness, no sores, no wounds Neurological: no head injury, no paralysis, no weakness, no parathesias, no numbness, no tingling, no seizures, no syncope Psychiatric: no anxiety Endocrine: no cold intolerance, no heat intolerance Hematologic/Lymphatic: no easy bruising, no easy bleeding Allergic/Immunologic: no urticaria Physical Examination Vital Signs Pulse Resp BP Pulse Ox 92 H 36 H 145/83 98 12/25/19 22:40 12/25/19 22:40 12/25/19 22:40 12/25/19 22:40 General appearance: no acute distress HEENT: Positive: PERRL, Normocephaly, Mucus Membranes Moist Neck: Positive: neck supple, trachea midline Cardiac: Positive: Reg Rate and Rhythm, S1/S2 Lungs: Positive: clear to auscultation Neuro: Positive: Grossly Intact Abdomen: Negative: Tender Skin: Negative: Rash Musculoskeletal: No Pain Extremities: Absent: edema Results 12/25/19 22:40 12/25/19 22:40 Coagulation 12/25/19 Range/Units 22:40 PT 12.0 L (12.2-14.9) Sec. INR 0.90 (0.87-1.13) APTT 33.3 (24.2-36.6) Sec. CBC 12/25/19 Range/Units 22:40 WBC 7.7 (4.5-11.0) K/mm3 RBC 4.24 (3.65-5.03) M/mm3 Hgb 10.0 L (10.1-14.3) gm/dl Hct 31.3 (30.3-42.9) % Plt Count 342 (140-440) K/mm3 Lymph # 2.8 (1.2-5.4) K/mm3 [place] # 0.6 (0.0-0.8) K/mm3 Eos # 0.3 (0.0-0.4) K/mm3 Baso # 0.0 (0.0-0.1) K/mm3 Comprehensive Metabolic Panel 12/25/19 Range/Units 22:40 Sodium 141 (137-145) mmol/L Potassium 3.7 (3.6-5.0) mmol/L Chloride 102.9 (98-107) mmol/L Carbon Dioxide 25 (22-30) mmol/L BUN 17 (7-17) mg/dL Creatinine 0.7 (0.7-1.2) mg/dL Glucose 96 (65-100) mg/dL Calcium 9.3 (8.4-10.2) mg/dL - Imaging and Cardiology Echo: report reviewed (05/06/2019 showed EF 50-55%, mild to mod LVH, LA severely dilated, grade 2 diastolic dysfunction, mild AR, mod MR, small pericardial effusion not hemodynamically significant.) Cardiac cath: report reviewed ( 05/2019 showed normal coronaries, normal LV function. ) EKG: report reviewed, image reviewed EKG interpretations - Telemetry EKG Rhythm: Sinus Rhythm - EKG Sinus rhythms and dysrhythmias: sinus rhythm Assessment and Plan Pt appears to be at euvolemia today. Convert IV lasix to PO lasix. Cont Toprol. Follow pulmonary recs. The patient has been seen in conjunction with Dr. Osorio who agrees with the assessment and plan of care. - Patient Problems (1) Acute heart failure with preserved ejection fraction (HFpEF) Current Visit: Yes Status: Acute (2) Normal coronary arteries Current Visit: Yes Status: Chronic (3) COPD with acute exacerbation Current Visit: Yes Status: Acute (4) Acute and chronic respiratory failure Current Visit: Yes Status: Acute (5) HTN (hypertension) Current Visit: Yes Status: Chronic Qualifiers: Hypertension type: essential hypertension Qualified Code(s): I10 - Essential (primary) hypertension (6) Morbid obesity Current Visit: Yes Status: Acute (7) Obesity hypoventilation syndrome Current Visit: Yes Status: Suspected (8) Sleep apnea Current Visit: Yes Status: Chronic (9) History of CVA (cerebrovascular accident) Current Visit: Yes Status: Chronic
[2019-12-26 13:23] LABS: BUN/Creatinine Ratio 23; Blood Urea Nitrogen 14 mg/dL (7-17); Calcium 9.2 mg/dL (8.4-10.2); Hemolysis Index 7
[2019-12-26] MEDS: BUDESONIDE 0.5 MG/2 ML NEBU IH SCH ×2 (16:50→20:39)
[2019-12-27] MEDS: IPRATROPIUM/ALBUTEROL SULFATE 3 ML AMPUL.NEB IH SCH ×3 (03:17→14:25)
[2019-12-27] MEDS: HEPARIN 5,000 UNIT/1 ML VIAL SUB-Q SCH ×2 (05:05→13:14)
[2019-12-27] MEDS: methylPREDNISolone Sod Succinate 40 MG/1 ML INJ IV SCH ×2 (05:05→13:10)
[2019-12-27 05:10] LABS: Hematocrit 34.4 % (30.3-42.9); Hemoglobin 10.7 gm/dl (10.1-14.3); Mean Corpuscular HGB Conc 31 % (30-34); Mean Corpuscular Volume 73 fl (79-97); Platelet Count 365 K/mm3 (140-440); Red Blood Count 4.68 M/mm3 (3.65-5.03)
[2019-12-27 05:23] LABS: BUN/Creatinine Ratio 27; Blood Urea Nitrogen 16 mg/dL (7-17); Calcium 9.4 mg/dL (8.4-10.2); Hemolysis Index 4
[2019-12-27 05:32] LABS: INR 1.05 (0.87-1.13)
[2019-12-27] MEDS: LORazepam 1 MG TAB PO PRN (06:04)
[2019-12-27 07:00] LABS: Basophils % (Manual) 0 % (0.0-1.8); Eosinophils % (Manual) 0 % (0.0-4.3); Total Cells Counted 100
[2019-12-27 07:06] LABS: Hypochromasia 1+
[2019-12-27 07:07] LABS: Anisocytosis RARE; Burr Cells Rare; Ovalocytes Rare
[2019-12-27 07:08] LABS: Platelet Estimate Consistent w Auto
[2019-12-27] MEDS: BUDESONIDE 0.5 MG/2 ML NEBU IH SCH (07:33)
[2019-12-27] MEDS: METOPROLOL SUCCINATE XL 25 MG TAB PO SCH (09:14)
[2019-12-27] MEDS ORDERED: FUROSEMIDE 40 MG TAB PO SCH (10:00)
--- NOTE | 2019-12-27 10:51 | Progress Note ---
Assessment and Plan Currently stable cardiac status. Pt reports RLE asymmetrical pain and swelling prior to admission, currently resolved - would like to r/o DVT, RLE venous duplex ordered. Follow pulmonary recs. Pt may discharge from cardiology standpoint on present cardiac regimen. Follow up in our [place] office with Dr. FERNANDO Mayer on 01/04/2020 @ 3:30PM. The patient has been seen in conjunction with Dr. Osorio who agrees with the assessment and plan of care. - Patient Problems (1) Acute heart failure with preserved ejection fraction (HFpEF) Current Visit: Yes Status: Acute (2) Normal coronary arteries Current Visit: Yes Status: Chronic (3) COPD with acute exacerbation Current Visit: Yes Status: Acute (4) Acute and chronic respiratory failure Current Visit: Yes Status: Acute (5) HTN (hypertension) Current Visit: Yes Status: Chronic Qualifiers: Hypertension type: essential hypertension Qualified Code(s): I10 - Essential (primary) hypertension (6) Morbid obesity Current Visit: Yes Status: Acute (7) Obesity hypoventilation syndrome Current Visit: Yes Status: Suspected (8) Sleep apnea Current Visit: Yes Status: Chronic (9) History of CVA (cerebrovascular accident) Current Visit: Yes Status: Chronic Subjective Date of service: 12/27/19 Principal diagnosis: COPD exac; HFpEF Interval history: pt resting in bed, states she is still experiencing CARTER. in SR. Objective Last Vital Signs Temp 98.4 F 12/27/19 07:44 Pulse 78 12/27/19 09:14 Resp 18 12/27/19 08:13 BP 125/83 12/27/19 09:14 Pulse Ox 99 12/27/19 07:44 - Physical Examination General: No Apparent Distress HEENT: Positive: PERRL, Normocephaly, Mucus Membranes Moist Neck: Positive: neck supple, trachea midline Cardiac: Positive: Reg Rate and Rhythm, S1/S2 Lungs: Positive: Decreased Breath Sounds Neuro: Positive: Grossly Intact Abdomen: Negative: Tender Skin: Negative: Rash Musculoskeletal: No Pain Extremities: Absent: edema - Labs and Meds Coagulation 12/27/19 Range/Units 04:05 PT 13.5 (12.2-14.9) Sec. INR 1.05 (0.87-1.13) CBC 12/27/19 Range/Units 04:05 WBC 13.4 H (4.5-11.0) K/mm3 RBC 4.68 (3.65-5.03) M/mm3 Hgb 10.7 (10.1-14.3) gm/dl Hct 34.4 (30.3-42.9) % Plt Count 365 (140-440) K/mm3 Comprehensive Metabolic Panel 12/26/19 12/27/19 Range/Units 12:00 04:05 Sodium 139 138 (137-145) mmol/L Potassium 3.8 4.1 (3.6-5.0) mmol/L Chloride 98.5 97.5 L (98-107) mmol/L Carbon Dioxide 25 29 (22-30) mmol/L BUN 14 16 (7-17) mg/dL Creatinine 0.6 L 0.6 L (0.7-1.2) mg/dL Glucose 181 H 144 H (65-100) mg/dL Calcium 9.2 9.4 (8.4-10.2) mg/dL - Imaging and Cardiology EKG: report reviewed, image reviewed Echo: report reviewed (05/06/2019 showed EF 50-55%, mild to mod LVH, LA severely dilated, grade 2 diastolic dysfunction, mild AR, mod MR, small pericardial effusion not hemodynamically significant.) Cardiac cath: report reviewed ( 05/2019 showed normal coronaries, normal LV function. ) - Telemetry EKG Rhythm: Sinus Rhythm - EKG Sinus rhythms and dysrhythmias: sinus rhythm
--- NOTE | 2019-12-27 12:34 | Discharge Summary ---
Providers - Providers Date of Admission: 12/25/19 23:54 Attending physician: AUNG AL MD 12/26/19 08:43 Consult to Physician [CONS] Routine Comment: Consulting Provider: OLGA WORLEY Physician Instructions: Know to Dr. Nava Reason For Exam: Dyspnea on Exertion 12/26/19 10:45 Consult to Physician [CONS] Routine Comment: Consulting Provider: QUINTIN VICENTE Physician Instructions: Reason For Exam: chf Primary care physician: [employer] Hospitalization Condition: Stable Hospital course: Lungs clear, Diminished at bases Uses 4 liters oxygen at home, due to some relocation has not been quit compliant but will be Ran out of most of her meds Still smoking, [facility] provided Plans to keep all her appointments starting tomorrow. Disposition: [id number]/[place]-06 HOME UNDER HOME HL[facility] Time spent for discharge: 35 MINS Exam - Constitutional Vitals: Temp Pulse Resp BP Pulse Ox 98.4 F 81 18 125/83 99 12/27/19 07:44 12/27/19 10:00 12/27/19 08:13 12/27/19 09:14 12/27/19 07:44 Plan Activity: advance as tolerated, fall precautions Diet: low fat Special Instructions: record daily weights, record daily BP diary Durable Medical Equipment Needed Upon Discharge: Oxygen (4 lpm at home. already on this) Follow up with: COURTNEY CASPER MD [Primary Care Provider] - 3-5 Days MAG STARKS MD [Staff Physician] - 7 Days MEHDI COLUNGA MD [Staff Physician] - 12/28/19 Prescriptions: Fluticasone/Vilanterol [Breo Ellipta 200-25 Mcg INH] 1 each IH BID #1 blst.w.dev Arformoterol Nebu [Brovana Nebu] 15 mcg IH Q12HRT #30 ml Ipratropium/Albuterol Sulfate [DUONEB *Not for PRN Use*] 1 ampul IH BID #30 ampul.neb hydroCHLOROthiazide [HCTZ] 25 mg PO QDAY #60 cap Metoprolol Xl [Metoprolol SUCCINATE ER TAB] 25 mg PO QDAY #30 tablet Prednisone [predniSONE 5 mg (6-Day Pack, 21 Tabs)] 5 mg PO .TAPER #1 tab.ds.pk ALBUTEROL NEB's [Proventil 0.083% NEBS] 2.5 mg IH Q4HRT PRN #30 nebu PRN Reason: Shortness Of Breath Budesonide [Pulmicort Respules] 0.5 mg IH Q12HRT #30 nebu diazePAM TAB [Valium] 2 mg PO Q12H PRN #6 tablet PRN Reason: Anxiety
--- NOTE | 2019-12-27 13:28 | Progress Note ---
Assessment and Plan Patient is a 44-year-old female Morbidly Obese with known history of COPD,Sleep apnea and CHF and currently on 4 L of oxygen at home presenting to the emergency room complaining of shortness of breath. Patient indicates that she has been out of furosemide for about 4 days has been having progressive swelling of her lower extremities. Patient also told me she is running out of her inhalers. She has also have some difficulty lying down flat . She denies any chest pain, no fever or chills, no nausea vomiting . No sick contacts and no history of recent travel. She denies contact with anyone with COVID-19. She denies any symptoms of COVID 19 infection. No fever, no chills, no body aches. Upon arrival in the emergency room patient was in respiratory distress and was subsequently placed on BiPAP. She also had some nebulizing treatments and some furosemide with some improvement. Patient has history of smoking 2 packs a day for 25 years and patient says cut down to 2 cigaretts a day. Counselled to stop smoking. Patient lost 45 lbs over last few months. Patient is on CPAP at home. Patient says sleeping alright. Allergic to Iodine,Shellfish Patient presently resting on 4 litres O2. o2 saturation running 100%. BIPAP standby in the room. Patients chest xray reported no acute pulmonary and pleural findings. 12/27/19 Patient alert, awake. Breathing better to day. No Complaint of chest pain or shortness of breath or cough to day. Patient is on 4 litres O2. O2 saturation 96%. Patient refused to get blood gases.Patient going home. Recommend pulmonary follow up with me as out patient. - Patient Problems (1) Acute and chronic respiratory failure Current Visit: Yes Status: Acute Plan to address problem: O2 4 litres via nasal canula. BIPAP during night time, Prn for shortness of breath during day time. Albuterol/atrovent aerosol treatments q 6 hours. Continue I/V solumedrol. Continue S/C heparin. Recommend GI prophylaxis Fomatidine or protonix. (2) COPD with acute exacerbation Current Visit: Yes Status: Acute Plan to address problem: O2 4 litres via nasal canula. BIPAP during night time, Prn for shortness of breath during day time. Albuterol/atrovent aerosol treatments q 6 hours. Continue I/V solumedrol. Continue S/C heparin. Recommend GI prophylaxis Fomatidine or protonix. (3) CHF (congestive heart failure) Current Visit: Yes Status: Acute Qualifiers: Plan to address problem: Management as per cardiology. (4) HTN (hypertension) Current Visit: Yes Status: Chronic Qualifiers: Hypertension type: essential hypertension Qualified Code(s): I10 - Essential (primary) hypertension Plan to address problem: Management as per primary care. (5) Morbid obesity Current Visit: Yes Status: Acute Plan to address problem: Recommend more weight loss. (6) Obesity hypoventilation syndrome Current Visit: Yes Status: Suspected Plan to address problem: BIPAP standby in the room. ABGs on room air. (7) Tobacco use Current Visit: No Status: Chronic Plan to address problem: Counselled to stop smoking. Subjective Date of service: 12/27/19 Principal diagnosis: COPD exac; HFpEF Interval history: Patient alert, awake. Breathing better to day. No Complaint of chest pain or shortness of breath or cough to day. Patient is on 4 litres O2. O2 saturation 96%. Patient refused to get blood gases.Patient going home. Recommend pulmonary follow up with me as out patient. Objective Vital Signs - 12hr 12/27/19 12/27/19 12/27/19 03:20 03:51 07:40 Temperature 98.3 F Pulse Rate 77 Pulse Rate [ 91 H 77 Anterior Bilateral Throughout] Respiratory 21 Rate Respiratory 18 18 Rate [Anterior Bilateral Throughout] Blood Pressure 132/82 O2 Sat by Pulse 99 Oximetry 12/27/19 12/27/19 12/27/19 07:44 08:13 09:14 Temperature 98.4 F Pulse Rate 78 78 Pulse Rate [ Anterior Bilateral Throughout] Respiratory 22 18 Rate Respiratory Rate [Anterior Bilateral Throughout] Blood Pressure 125/83 125/83 O2 Sat by Pulse 99 Oximetry 12/27/19 10:00 Temperature Pulse Rate 81 Pulse Rate [ Anterior Bilateral Throughout] Respiratory Rate Respiratory Rate [Anterior Bilateral Throughout] Blood Pressure O2 Sat by Pulse Oximetry Constitutional: no acute distress, alert Eyes: non-icteric ENT: oropharynx moist Neck: supple, no JVD Ascultation: Bilateral: diminished breath sounds Cardiovascular: regular rate and rhythm Gastrointestinal: normoactive bowel sounds, soft, non-tender Integumentary: normal Extremities: no cyanosis, no edema Neurologic: normal mental status, non-focal exam, pupils equal and round, CN II- XII normal Psychiatric: mood appropriate CBC and BMP: 12/27/19 04:05 12/27/19 04:05 ABG, PT/INR, D-dimer: PT/INR, D-dimer PT 13.5 Sec. (12.2-14.9) 12/27/19 04:05 INR 1.05 (0.87-1.13) 12/27/19 04:05 Abnormal lab findings: Abnormal Labs 12/25/19 12/25/19 12/25/19 22:40 22:40 22:40 WBC Hgb 10.0 L MCV 74 L MCH 24 L RDW 17.4 H Lymph % (Auto) 35.9 H Seg Neuts % (Manual) Lymphocytes % (Manual) Seg Neutrophils # Man PT 12.0 L Chloride Creatinine Glucose NT-Pro-B Natriuret Pep 1003 H 12/26/19 12/27/19 12/27/19 12:00 04:05 04:05 WBC 13.4 H Hgb MCV 73 L MCH 23 L RDW 17.0 H Lymph % (Auto) Seg Neuts % (Manual) 85.0 H Lymphocytes % (Manual) 13.0 L Seg Neutrophils # Man 11.4 H PT Chloride 97.5 L Creatinine 0.6 L 0.6 L Glucose 181 H 144 H NT-Pro-B Natriuret Pep
[2019-12-27 13:33] VITALS: BP 147/87
--- NOTE | 2019-12-27 14:32 | Vascular Lab Report ---
DUPLEX DOPPLER LOWER EXTREMITY VEINS, BILATERAL INDICATION / CLINICAL INFORMATION: Bilateral leg pain. TECHNIQUE: Duplex doppler imaging was performed through the veins of both lower extremities using venous les gaurav and other maneuvers. COMPARISON: 06/04/2019 FINDINGS: RIGHT COMMON FEMORAL VEIN: Negative. RIGHT FEMORAL VEIN: Negative. RIGHT POPLITEAL VEIN: Negative. RIGHT CALF VEINS: Negative. LEFT COMMON FEMORAL VEIN: Negative. LEFT FEMORAL VEIN: Negative. LEFT POPLITEAL VEIN: Negative. LEFT CALF VEINS: Negative. ADDITIONAL FINDINGS: None. IMPRESSION: 1. No sonographic evidence for DVT in either lower extremity. Signer Name: Hadley Burnett MD Signed: 12/27/2019 2:27 PM Workstation Name: [id number][id number]
== END 2019-12-27 14:29 | disposition home or self-care (01) | DRG 189 ==
LOC: ED 22:06 → 4A 23:54
PROVIDERS: ADMIT Internal Medicine Geriatric Medicine; ATTEND Internal Medicine
PROC: 5A09357 Assistance with Respiratory Ventilation, Less than 24 Consecutive Hours, Continuous Positive Airway Pressure (ICD-10-PCS; 2019-12-25)
PROC: 5A09357 Assistance with Respiratory Ventilation, Less than 24 Consecutive Hours, Continuous Positive Airway Pressure (ICD-10-PCS; 2019-12-26)
PROC: 4A033R1 Measurement of Arterial Saturation, Peripheral, Percutaneous Approach (ICD-10-PCS; principal; 2019-12-27)
DX: J96.20 Acute and chronic respiratory failure, unspecified whether with hypoxia or hypercapnia (principal); J44.1 Chronic obstructive pulmonary disease with (acute) exacerbation; I50.31 Acute diastolic (congestive) heart failure; M19.90 Unspecified osteoarthritis, unspecified site; I11.0 Hypertensive heart disease with heart failure; E66.2 Morbid (severe) obesity with alveolar hypoventilation; F17.210 Nicotine dependence, cigarettes, uncomplicated; Z68.39 Body mass index [BMI] 39.0-39.9, adult; Z88.3 Allergy status to other anti-infective agents; Z91.013 Allergy to seafood; Z71.3 Dietary counseling and surveillance; Z71.6 Tobacco abuse counseling; Z99.81 Dependence on supplemental oxygen; Z86.73 Personal history of transient ischemic attack (TIA), and cerebral infarction without residual deficits
CPT/HCPCS: 36415; 71045; 80048; 83880; 84484; 85007; 85025; 85610; 85730; 93005; 93970; 94640; 94644; G0378; J1644; J1940; J2060; J2270; J2920; J2930

== ENCOUNTER 2022-02-14 23:08 | Emergency (ER) | payer MEDICAID | END 2022-02-15 00:25 | disposition left against medical advice (07) | LOC: ED 23:08 | DX: Z00.00 Encounter for general adult medical examination without abnormal findings (principal); Z53.21 Procedure and treatment not carried out due to patient leaving prior to being seen by health care provider ==